=== PATIENT | female | born 1965 | race Caucasian/White ===

== ENCOUNTER → 2017-10-20 15:32 | Outpatient (CLI) | payer MEDICAID, SELFPAY ==
[2017-10-26 11:07] LABS: HPV APTIMA, High Risk Negative (Negative)
== END ==
PROVIDERS: Family Provider Family Medicine Geriatric Medicine; PCP Family Medicine Geriatric Medicine; Visit Provider Nurse Practitioner Women's Health
DX: Z12.4 Encounter for screening for malignant neoplasm of cervix (principal)
CPT/HCPCS: 88175; G0145

== ENCOUNTER → 2017-10-27 12:16 | Outpatient (CLI) | payer MEDICAID, SELFPAY ==
--- NOTE | 2017-10-27 12:18 | HPBI_ITS ---
MAMMOGRAPHY - BILATERAL SCREENING REASON FOR EXAM: Female, 52 years old. Routine annual screening examination. PERTINENT HISTORY: Aunts with breast cancer. TECHNIQUE: Digital bilateral breast aurelia (3D mammographic acquisition) in the CC and MLO projections. 2-D mediolateral oblique (MLO) and craniocaudad (CC) views of both breasts were obtained. CAD: Full Field Digital Mammography with Computer Added Detection was performed. COMPARISON: Comparison is made with prior outside examination dated March 14, 2017. FINDINGS: Breast Composition: The breasts are heterogeneously dense, which may obscure small masses. There are no dominant masses or suspicious calcifications. Stable benign-appearing bilateral axillary lymph nodes. No other significant abnormalities are identified. There has been no significant change since the prior study. HPBI/SCREENING MAMM (CAD), BILAT IMPRESSION: Stable bilateral screening mammogram. Yearly follow-up mammogram recommended. (A) ASSESSMENT CATEGORY: BIRADS Category 2: Benign. A letter regarding these results will be sent to the patient by the facility within 30 days. Approximately 10% of breast cancers are not detected by mammography. A normal mammogram should not delay biopsy of a clinically suspicious abnormality. [id number] Electronically Signed: Jermaine Self MD at 13:49 EST Tel [phone], Service support ,
== END ==
PROVIDERS: Family Provider Family Medicine Geriatric Medicine; PCP Family Medicine Geriatric Medicine; Visit Provider Family Medicine Geriatric Medicine
DX: Z12.31 Encounter for screening mammogram for malignant neoplasm of breast (principal)
CPT/HCPCS: 77063; 77067

== ENCOUNTER 2017-12-23 10:32 | Emergency (ER) | payer SELFPAY ==
[2017-12-23 10:33] VITALS: BP 157/86; PULSE 98; RESP 16; TEMP 36.9; BMI 25.0
--- NOTE | 2017-12-23 10:48 | ED.VISSUMM ---
- ER Visit Summary Date of Service: 12/23/17 Chief Complaint: Right foot pain History of Present Illness: The patient is a [address] Chahuan. She reports that she has pain on the bottom of her right foot that began approximately 1 month ago. She denies any trauma. She was not walking around barefoot. She describes a throbbing pain is 10 out of 10 with walking 7-10 at rest. She denies any other complaints. Physical Examination: Vitals: Stable. Afebrile. General: Well-nourished and well-developed. Head: Normocephalic atraumatic. Neck: Supple, no lymphadenopathy. No JVD. Nontender. Cardiovascular: Regular rate and rhythm. No murmurs. Respiratory: No respiratory distress. Clear to auscultation bilaterally. Abdominal: Soft, nontender, nondistended, normal bowel sounds. No guarding, rebound, or peritoneal signs. Back: Nontender. Extremities: On the plantar surface of her right foot there is a 1 cm plantars wart just proximal to the ball of her foot. no edema. Skin: Normal color, no rash. Neurologic: Alert and oriented ?3. Cranial nerves II through XII are intact. Normal strength and sensation. Psych: Normal affect. Emergency Department Course and Treatment: Patient was given a dose of ibuprofen here and is resting comfortably. Treatment Plan: Patient will be discharged use Tylenol/ibuprofen for pain. Did discuss with her [id number] treatments for plantar warts. She will be referred to Dr. Nelson to follow-up in 1-2 weeks if not improving. Return to the emergency department for any worsening symptoms. Disposition: To home in improved and stable condition. Impression: 1. Plantars wart right foot. This note was generated with [employer] dictation software. It may contain incorrect words, spelling, and punctuation that were not noted in review of the chart prior to signing ED Disposition - Plan for ED Patient: Disposition: Home or Assisted Living Chief Complaint: Lower Extremity Injury Instructions: ED Warts Plantar Referrals: Jamal Nelson DPM [STAFF PHYSICIAN] - 1 Week
[2017-12-23] MEDS: Ibuprofen 600 MG Tablet PO (11:16)
== END 2017-12-23 11:19 | disposition home or self-care (01) ==
LOC: ED 11:04
PROVIDERS: Emergency Provider Emergency Medicine; Family Provider Family Medicine Geriatric Medicine; PCP Family Medicine Geriatric Medicine
DX: B07.0 Plantar wart (principal); J45.909 Unspecified asthma, uncomplicated; E03.9 Hypothyroidism, unspecified; F32.9 Major depressive disorder, single episode, unspecified; Z72.0 Tobacco use; Z79.51 Long term (current) use of inhaled steroids; Z79.82 Long term (current) use of aspirin; Z79.899 Other long term (current) drug therapy
CPT/HCPCS: 99283

== ENCOUNTER → 2018-03-23 14:31 | Outpatient (CLI) | payer OTHER, SELFPAY ==
[2018-03-23 16:17] LABS: Vitamin D,25 Hydroxy 17.3 ng/mL (29.95-100.01)
[2018-03-23 19:15] LABS: Anion Gap 8 (5-15); BUN 15 mg/dL (7-18); Calcium,Total 8.8 mg/dL (8.5-10.1); Chloride 108 mmol/L (98-107); Cholesterol 211 mg/dL (200); Creatinine, Serum 0.88 mg/dL (0.55-1.02); EST Glomerular Filtration Rate 71 mL/min (>60); Est Glom Filt Rate - Afr Amer 86 mL/min (>60); Free T3 1.3 pg/mL (2.18-3.98); Glucose 89 mg/dL (74-106); High Density Lipoprotein 54 mg/dL; Potassium 3.8 mmol/L (3.5-5.1); Sodium Level 143 mmol/L (136-145); T4 Total, Thyroxin 3.6 ug/dL (4.8-13.9); Triglycerides 136 mg/dL; Very Low Density Lipoprotein 27 mg/dL (5-40)
== END ==
PROVIDERS: Family Provider Family Medicine; PCP Family Medicine; Visit Provider Family Medicine
DX: K21.9 Gastro-esophageal reflux disease without esophagitis (principal)
CPT/HCPCS: 36415; 80048; 80061; 82306; 84436; 84443; 84481

== ENCOUNTER → 2018-03-30 10:25 | Outpatient (CLI) | payer OTHER, SELFPAY ==
--- NOTE | 2018-03-30 10:28 | US_ITS ---
STUDY: THYROID ULTRASOUND REASON FOR EXAM: Female, 52 years old. Hypothyroidism. TECHNIQUE: Ultrasound evaluation of the thyroid was performed with real-time and static gavin-scale imaging. COMPARISON: None. FINDINGS: RIGHT LOBE: The right lobe of the thyroid gland is enlarged and measures 5.4 x 1.7 x 2.5 cm. There is a heterogeneous echotexture. There are no demonstrated solid, cystic or complex lesions. LEFT LOBE: The left lobe of the thyroid gland is enlarged and measures 5.8 x 2.1 x 1.9 cm. There is a heterogeneous echotexture. There are no demonstrated solid, cystic or complex lesions. ISTHMUS: The isthmus measures 3 mm which is normal. The regional lymph nodes are normal. US/Thyroid IMPRESSION: Thyroid gland enlargement. No nodules or cysts identified. Electronically Signed: Christo Mcmahon MD at 8:11 EDT , Service support ,
== END ==
LOC: OPUS 10:26
PROVIDERS: Family Provider Family Medicine; PCP Family Medicine; Visit Provider Family Medicine
DX: E03.9 Hypothyroidism, unspecified (principal)
CPT/HCPCS: 76536

== ENCOUNTER 2018-06-07 08:21 | Day surgery (SDC) | payer OTHER, SELFPAY ==
--- NOTE | 2018-06-02 10:21 | RAD_ITS ---
STUDY: X-RAY CHEST REASON FOR EXAM: Female, 52 years old. Preop clearance TECHNIQUE: PA and lateral views of the chest. COMPARISON: 04/16/2015 FINDINGS: The lungs are clear and expanded. There is no demonstrated pleural abnormality. Normal size heart. Normal mediastinum and neeru. Normal visualized pulmonary arteries. Normal visualized aortic arch and descending thoracic aorta. Normal visualized thoracic spine. Normal visualized ribs, clavicles, and shoulders. There is no demonstrated abnormality of the visualized soft tissue structures of the upper abdomen. RAD/Chest PA and Lateral IMPRESSION: Normal x-ray examination of the chest. Electronically Signed: Félix Ritter DO at 10:45 EDT Tel , Service support ,
[2018-06-02 10:24] LABS: Hemoglobin 13.8 g/dl (12.0-15.0); Mean Corp Hgb Conc 32.9 g/gl (32-36); Mean Corpuscular Hgb 31.4 pg (27.0-32.0); Mean Corpuscular Volume 95.5 fL (81-99); Mean Platelet Vol. 11.5 fl (6.2-12.0); Platelet Count 182 K/mm3 (150-450); RBC Distribution Width CV 13.2 % (11.6-14.6); RBC Distribution Width SD 46.3 fl (35.1-43.9)
[2018-06-02 10:25] LABS: Scan Indicated on CBC? Y/N NO
--- NOTE | 2018-06-02 10:30 | EKG12_ITS ---
Test Reason : PRE OP Blood Pressure : / mmHG Vent. Rate : 091 BPM Atrial Rate : 091 BPM P-R Int : 198 ms QRS Dur : 080 ms QT Int : 342 ms P-R-T Axes : 058 030 051 degrees QTc Int : 420 ms Normal sinus rhythm Normal ECG Confirmed by ROME GIBSON, SOHAIL ([id number]), newspaper managing editor JET DORANTES ([id number]) on 06/06/2018 3:16:39 PM Referred By: Paxton Fang Confirmed By:SOHAIL PETER MD
[2018-06-02 10:47] LABS: Anion Gap 7 (5-15); BUN 14 mg/dL (7-18); BUN/Creat Ratio 18.6 RATIO (10-20); Calcium,Total 8.7 mg/dL (8.5-10.1); Chloride 110 mmol/L (98-107); Creatinine, Serum 0.75 mg/dL (0.55-1.02); EST Glomerular Filtration Rate 85 mL/min (>60); Est Glom Filt Rate - Afr Amer 103 mL/min (>60); Glucose 104 mg/dL (74-106); Sodium Level 142 mmol/L (136-145)
[2018-06-07] VITALS (8 sets, daily range): BP systolic 108–141; BP diastolic 56–93; PULSE 85–97; RESP 14–20; TEMP 36.1–36.6; O2SAT 94–98; BMI 33.8
--- NOTE | 2018-06-07 09:17 | PCM.DC ---
You will use the following diet at home:: No restrictions Discharge Activity: Return to Normal Activity Allergies/Adverse Reactions: Allergies cephalexin monohydrate [From Keflex] Allergy (Verified 05/31/18 13:40) Hives latex Allergy (Verified 05/31/18 13:40) Rash Medications to take at Discharge Albuterol Inhaler [Ventolin Hfa] 1 puff INHALATION Q6H PRN PRN 09/25/14 Levothyroxine [Synthroid] 137 mcg PO DAILY 09/25/14 Loratadine [Claritin] 10 mg PO DAILY 09/25/14 buPROPion XL [Wellbutrin Xl] 300 mg PO DAILY 09/25/14 aspirin 81 mg tablet,delayed release 81 mg PO DAILY 10/20/17 Montelukast [Singulair] 10 mg PO DAILY 05/31/18 Multivitamin [Multiple Vitamins] 1 each PO DAILY 05/31/18 Nicotine [Nicoderm Cq (PBKC)] 14 mg TRANSDERM. DAILY 05/31/18 Omeprazole 40 mg PO DAILY 05/31/18 Ranitidine [Zantac] 150 mg PO DAILY 05/31/18 Primary Care Physician: Hu Hairston MD [Primary Care Provider] - Test Results: Test results from this visit will be discussed in further detail at your follow-up appointment, if applicable. Please Follow Up With: Paxton Fang MD When: 1 week
--- NOTE | 2018-06-07 09:21 | DCINST_ITS ---
You will use the following diet at home:: No restrictions Discharge Activity: Return to Normal Activity Allergies/Adverse Reactions: Allergies cephalexin monohydrate [From Keflex] Allergy (Verified 05/31/18 13:40) Hives latex Allergy (Verified 05/31/18 13:40) Rash Medications to take at Discharge Albuterol Inhaler [Ventolin Hfa] 1 puff INHALATION Q6H PRN PRN 09/25/14 Levothyroxine [Synthroid] 137 mcg PO DAILY 09/25/14 Loratadine [Claritin] 10 mg PO DAILY 09/25/14 buPROPion XL [Wellbutrin Xl] 300 mg PO DAILY 09/25/14 aspirin 81 mg tablet,delayed release 81 mg PO DAILY 10/20/17 Montelukast [Singulair] 10 mg PO DAILY 05/31/18 Multivitamin [Multiple Vitamins] 1 each PO DAILY 05/31/18 Nicotine [Nicoderm Cq (PBKC)] 14 mg TRANSDERM. DAILY 05/31/18 Omeprazole 40 mg PO DAILY 05/31/18 Ranitidine [Zantac] 150 mg PO DAILY 05/31/18 Primary Care Physician: Hu Hairston MD [Primary Care Provider] - Test Results: Test results from this visit will be discussed in further detail at your follow- up appointment, if applicable. Please Follow Up With: Paxton Fang MD When: 1 week
--- NOTE | 2018-06-07 09:21 | PCM.OPRPT ---
Problem List (1) Laryngeal mass Status: Chronic Report of Operation Date of Procedure: 06/07/18 Pre-Operative Diagnosis: laryngeal mass Post-Operative Diagnosis: laryngeal mass Surgery/Procedure Performed:: diagnostic laryngoscopy with vocal cord stripping and use of the operative telescope Type of Anesthesia:: General Description of Procedure: on the day of the procedure, after appropriate informed consent was obtained, the patient was brought to the operating room and placed in supine position on the operating table. she was placed under general endotracheal anesthesia by the anesthesiologist. the endotracheal tube was secured, the eyes were taped. the table was rotated 90 degrees toward the surgeon. a jeanette laryngoscope was inserted into the oral cavity with care not to damage the lips, teeth or gums. it was suspended from the viera stand. a glottic view could not be obtained with numerous laryngoscopes and maximal paralysis. the patient was examined with the glide scope and the same mid-cord polypoid lesion was seen. it was deemed unlikely that i could reach her larynx using straight microlaryngoscopy instruments and the microscope in the manner necessary to delicately trim her vocal cord. the case was aborted. the patient was rotated 90 degrees toward the anesthesiologist and extubated uneventfully. she was transported to the PACU in stable condition.
[2018-06-07] MEDS: Oxymetazoline 0.05% 1 SPRAY SPRAY.BTL 15 SPRAY (09:54)
[2018-06-07] MEDS: Ipratropium/Albuterol Sulfate 3 ML AMPUL.NEB INHALATION (10:48)
== END 2018-06-07 11:50 | disposition home or self-care (01) ==
LOC: SDC 08:22 → AC 08:22
PROVIDERS: Family Provider Family Medicine; PCP Family Medicine; Visit Provider Otolaryngology
PROC: 0CJS8ZZ Inspection of Larynx, Via Natural or Artificial Opening Endoscopic (ICD-10-PCS; CPT 31575; principal; 2018-06-07 09:50)
DX: J38.1 Polyp of vocal cord and larynx (principal); K21.9 Gastro-esophageal reflux disease without esophagitis; E06.9 Thyroiditis, unspecified; F32.9 Major depressive disorder, single episode, unspecified; J45.909 Unspecified asthma, uncomplicated; F17.200 Nicotine dependence, unspecified, uncomplicated; Z79.51 Long term (current) use of inhaled steroids; Z79.82 Long term (current) use of aspirin; Z79.899 Other long term (current) drug therapy
CPT/HCPCS: 31575; 36415; 71046; 80048; 85027; 93005; 94640; J7120; J2405

== ENCOUNTER → 2018-07-13 14:39 | Outpatient (CLI) | payer OTHER, SELFPAY ==
[2018-07-13 16:07] LABS: Thyroid Stim Hormone (TSH) 0.02 uIU/mL (0.358-3.74)
== END ==
LOC: MFPLAB 14:39
PROVIDERS: Family Provider Family Medicine; PCP Family Medicine; Visit Provider Family Medicine
DX: E03.9 Hypothyroidism, unspecified (principal)
CPT/HCPCS: 36415; 84443

== ENCOUNTER → 2018-08-25 14:05 | Outpatient (CLI) | payer OTHER, SELFPAY ==
[2018-06-07 09:00] VITALS: BMI 33.8
[2018-08-25 18:13] LABS: Thyroid Stim Hormone (TSH) 3.46 uIU/mL (0.358-3.74)
== END ==
LOC: MFPLAB 14:06
PROVIDERS: Family Provider Family Medicine; PCP Family Medicine; Visit Provider Family Medicine
DX: E03.9 Hypothyroidism, unspecified (principal)
CPT/HCPCS: 36415; 84443

== ENCOUNTER → 2019-01-05 10:41 | Outpatient (CLI) | payer OTHER, SELFPAY ==
[2018-06-07 09:00] VITALS: BMI 33.8
[2019-01-05 12:34] LABS: Absolute Lymphocyte Count 2.65 X10^3/ul (0.83-4.51); Absolute Neutrophil Count 5.6 X10^3/uL (2.0-7.7); Basophil# 0.02 X10^3/uL; Basophil% 0.2 % (0-1); Eosinophil# 0.16 X10^3/uL; Eosinophils% 1.8 % (0-5); Hematocrit 44.5 % (37-47); Lymphocyte # 2.65 X10^3/ul (4.0); Lymphocyte % 29.4 % (19-41); Mean Corp Hgb Conc 33.7 g/gl (32-36); Mean Corpuscular Hgb 30.8 pg (27.0-32.0); Mean Corpuscular Volume 91.4 fL (81-99); Mean Platelet Vol. 11.9 fl (6.2-12.0); Monocyte# 0.54 X10^3/uL; Neutrophil # 5.63 X10^3/uL (2.7-7.7); Neutrophil % 62.4 % (47-70); Platelet Count 196 K/mm3 (150-450); RBC Distribution Width CV 13.9 % (11.6-14.6); RBC Distribution Width SD 45.9 fl (35.1-43.9); Red Blood Count 4.87 M/mm3 (4.2-5.4)
[2019-01-05 12:42] LABS: POSITIVE COUNT NO; POSITIVE DIFFERENTIAL NO; POSITIVE MORPHOLOGY NO
== END ==
LOC: MFPLAB 10:41
PROVIDERS: Family Provider Family Medicine; PCP Family Medicine; Referring Provider Family Medicine; Visit Provider Family Medicine
DX: K92.1 Melena (principal)
CPT/HCPCS: 36415; 85025

== ENCOUNTER 2019-02-08 08:44 | Day surgery (SDC) | payer OTHER, SELFPAY ==
--- NOTE | 2019-01-11 02:50 | HP_ITS ---
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: No Is patient in pain?: No Allergies cephalexin monohydrate [From Keflex] Allergy (Verified 01/11/19 14:18) Hives latex Allergy (Verified 01/11/19 14:18) Rash Medications Albuterol Inhaler [Ventolin Hfa] 1 puff INHALATION Q6H PRN PRN 09/25/14 [History Confirmed 01/11/19] buPROPion XL [Wellbutrin Xl] 300 mg PO DAILY 09/25/14 [History Confirmed 01/11/19] aspirin 81 mg tablet,delayed release 81 mg PO DAILY 10/20/17 [History Confirmed 01/11/19] Omeprazole 40 mg PO DAILY 05/31/18 [History Confirmed 01/11/19] Ranitidine [Zantac] 150 mg PO DAILY 05/31/18 [History Confirmed 01/11/19] hydrocortisone 2.5 % rectal cream with applicator % RC DAILY 01/11/19 [History Confirmed 01/11/19] levothyroxine 100 mcg tablet 125 mcg PO DAILY tab 01/11/19 [History Confirmed 01/11/19] montelukast 10 mg tablet 10 mg PO QPM 01/11/19 [History Confirmed 01/11/19] multivitamin tablet 1 tab PO DAILY 01/11/19 [History Confirmed 01/11/19] polyethylene glycol 3350 17 gram/dose oral powder 17 g PO DAILY 01/11/19 [History Confirmed 01/11/19] PFS Medical History Laryngeal mass (Chronic) Tobacco abuse (Chronic) Hypothyroid (Chronic) COPD (chronic obstructive pulmonary disease) 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 (Chronic) Acid reflux (Acute) Blood in stool (Acute) History of back problems (Acute) history excision abdominal wall tumor (Acute) Anxiety (Acute) Asthma (Acute) History Gallbladder Removal (Acute) History of abnormal cervical Pap smear (Acute) History of benign neoplasm of stomach (Acute) History of bloody stools (Acute) Hyperthyroidism (Acute) Scoliosis (Acute) Surgical History History of cholecystectomy (Acute) History of delivery (Acute) Family History Grandmother Colon cancer Grandfather Kidney disease Heart disease Sister Lung cancer Seizures Mother Cancer Diabetes Daughter Hypertension Thyroid disorder Social History Smoking Status: Current every day smoker second hand exposure: Yes quit status: not considering quitting alcohol intake: former year quit: 3 substance use type: does not use what type of physical activity do you participate in: none seatbelt use: always do you feel safe at home: Yes additional social history: Employed Self 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 Patient states she has had issues with bleeding per rectum since about 15 years old occasionally can be more blood than other times. States since her colonoscopy in [address] Pena which she did have a tubular adenoma removed removed no other abnormalities were commented on. Patient also had an EGD at that time and has been on omeprazole and loratadine since then patient denies any symptoms of reflux. Patient states she is had bright red blood sometimes in the toilet at other times just on the toilet paper with every bowel movement. Patient states she has bowel movements daily states he are usually hard in the morning but then soft afterwards. Patient denies any pain with bowel movements. Patient is unsure if she has any hemorrhoids. She just started Proctol per her PCP states she has been putting in her rectum, patient also got generic MiraLAX and to start taking that daily. Patient is also on aspirin 81 mg preventatively. Patient states she does drink plenty water however she likely does not get enough fiber in her diet. ROS General General: No fatigue, colon cancer, breast cancer or weakness HEENT HEENT: No difficulty swallowing, eye injury, eye surgery, swollen glands or hoarseness Endo Endocrine: Yes thyroid disease; no diabetes mellitus, thyroid cancer, Hair loss, heat intolerance or cold intolerance Skin Skin: No rash or changing moles Breast Breast: No left breast lump, right breast lump, nipple discharge, breast pain, abnormal mammogram, abnormal US or breast enlargement Musc Musculoskeletal: Yes back problems; no arthritis, rheumatoid arthritis, gout or joint pain Cardio Cardiovascular: No murmur, pacemaker, heart disease, atrial fibrillation, high blood pressure, heart attack, heart stent, palpitations, shortness of breat with exertion or chest pain Psych Psychiatric: No depression, anxiety or hearing voices Resp Respiratory: No shortness of breath, No sleep apnea, No cough, No COPD, Yes asthma, No emphysema, No wheezing Gastro Gastrointestinal: No abdominal pain, No nausea or vomiting, No diarrhea, No constipation, Yes blood in stool, Yes acid reflux, No hemorrhoids, No ulcers, No gallbladder problem, No black,tarry stools Octavio Hematologic: No blood thinners, No blood disorders, No bleeding, No anemia, No blood clots Neuro Neurologic: No system reviewed and no additional complaints, except as docu, No as per HPI, No abnormal walking, No abnormal hearing, No abnormal movements, No abnormal speech, No behavioral changes, No burning sensations, No confusion, No seizure-like activity, No unsteadiness, No dizziness, No localized weakness, No frequent falls, No headache(s), No lack of coordination, No loss of vision, No memory loss, No numbness, No other visual disturbances, No radiating pain, No restless legs, No sensory deficit, No fainting, No tingling, No tremor(s), No weakness, No other Exam Const General: cooperative, comfortable, no acute distress Chest Breast Palpation: No nipple discharge Resp Effort & Inspection: normal respiratory effort Cardio Rate: regular rate Heart Sounds: no murmurs GI Inspection: non-distended, scar (Right lower quadrant from the abdominal wall tumor -benign & csection) Palpation: soft, no guarding, nontender Other: ABHISHEK: Small residual hemorrhoidal tissue externally, left lateral cushion internal hemorrhoid appreciated, no gross blood, normal sphincter tone, no other masses appreciate Assessment & Plan Problems 1. BRBPR (bright red blood per rectum) K62.5 2. Internal hemorrhoid K64.8 Plan Will patient hold her aspirin. Also gave patient a list of high-fiber foods encouraged getting 25 g daily. Discussed with patient that if she were to take MiraLAX daily long-term she may build up a tolerance that may no longer work well for her. Did discuss adding stool softeners. On exam patient did have a left lateral internal hemorrhoid recommend continuing the Proctol. I have discussed the above with the patient. I have offered the patient colonoscopy for evaluation. I have explained the risks/benefits of the procedure and described the procedure. I have discussed the risks with the patient, including but not limited to: infection, bleeding, perforation of the GI tract requiring emergency surgery, inability to complete the procedure, injury to any internal organs, complications of anesthesia, etc. - the patient understands and agrees to proceed. I have answered all the patient's questions to the patient's satisfaction and the patient has no further questions. The patient has been given instructions for the colon cleansing preparation. 1 day of clears, MiraLAX Dulcolax split prep Jazmine Contreras M.D. Pager: [phone] [facility] [address] [place] [address], [facility], [address] [place] [address] Office: [phone] Plan Detail Follow Up We will schedule colonoscopy Coding Level of Care Code Off vis,new,level 3 Diagnoses BRBPR (bright red blood per rectum) K62.5 Internal hemorrhoid K64.8 01/11/19 1451 <Electronically signed by Jazmine Contreras MD> Date Jazmine Contreras MD I have examined the patient the following changes are noted: Patient states she still having small amount of bright red blood per rectum denies any pain or itching with her hemorrhoids.
[2019-01-11 14:17] VITALS: BMI 34.1
[2019-02-08 09:08] VITALS: BP 141/85; PULSE 86; RESP 16; TEMP 36.7; O2SAT 95; BMI 33.5
--- NOTE | 2019-02-08 10:15 | COLBX_PTH ---
PATIENT: BOAZ REYNAGA LOC: EN U#:[id number] AGE/SX: 53/F ROOM: RE02/08/[address]: Dr. Jazmine Contreras MD : 1965 BED: DIS: 02/08/2019 SPEC #: [id number] RECD: 02/08/19 11:51 STATUS: PEARL RERicki #: [id number] SUNSHINE: 02/08/19 10:[address]: Jazmine Contreras DEPT: SURGICAL PATHOLOGY RECD BY: Reyna Perla ENTERED: 02/08/19 14:05 SP TYPE: COLON BX OTHR DR: Dr. Hu Hairston MD Tissues: A - POLYP B - Sigmoid colon biopsy Procedures: Surgery Specimen Level IV HEADER OPERATION: colonoscopy (MAC) PRE-OP DIAGNOSIS: Bright red blood per rectum, internal hemorrhoids TISSUE SUBMITTED: A. Distal descending colon polyp, B. Sigmoid polyp MICROSCOPIC DIAGNOSIS A. Distal descending colon polyp, biopsy: Tubular adenoma. B. Sigmoid polyp, biopsy: Fragments of colonic mucosa with focal hyperplastic changes. SHABNAM:dc 02/09/19 MICROSCOPIC DESCRIPTION Slides are reviewed. GROSS DESCRIPTION A - Received in fixative is one container labeled with the patient's name and designated biopsy of distal descending colon polyp. The specimen consists of two irregular fragments of light rader soft tissue that in aggregate measure 0.4 x 0.2 x 0.1 cm. The specimen is totally submitted in one cassette. B - Received in fixative is one container labeled with the patient's name and designated biopsy of sigmoid polyp. The specimen consists of two irregular fragments of light rader soft tissue that in aggregate measure 0.4 x 0.3 x 0.1 cm. The specimen is totally submitted in one cassette. / SHABNAM:dc 02/08/19 TC:1 CPT: 70257 x2
[2019-02-08 11:02] VITALS: BP 141/85; BP 97/53; PULSE 80; RESP 16; TEMP 36.2; O2SAT 97
--- NOTE | 2019-02-08 11:04 | OP.ENDO_ITS ---
02/08/2019 Hu Hairston MD [address] [id number] Re : Colonoscopy procedure for Cindi Goldstein Dear Dr. Hairston This procedure was performed on Friday, February 08, 2019. My impressions and recommendations are as follows: Impressions : - Hemorrhoids found on perianal exam. - No specimens collected. Recommendations : - Discharge patient to home. - Resume previous diet. - Continue present medications. - Await pathology results. - Repeat colonoscopy in 3 - 5 years for surveillance based on pathology results. My findings are described in the full procedure note, which is enclosed. If I can be of further assistance, please feel free to contact me at Doctor phone number(s): , Work: . Sincerely, MD Jazmine Urrutia MD 02/08/2019 11:03:47 AM This report has been signed electronically.
[2019-02-08 11:05] VITALS: BP 114/73; BP 141/85; PULSE 77; RESP 16; O2SAT 94
[2019-02-08 11:10] VITALS: BP 116/73; BP 141/85; PULSE 79; RESP 16; O2SAT 94
[2019-02-08 11:15] VITALS: BP 117/102; BP 141/85; PULSE 77; RESP 16; TEMP 36.3; O2SAT 96
[2019-02-08 11:24] VITALS: BP 141/85
== END 2019-02-08 11:39 | disposition home or self-care (01) ==
LOC: EN 08:46 → AC 08:47
PROVIDERS: Family Provider Family Medicine; PCP Family Medicine; Referring Provider Surgery; Visit Provider Surgery
PROC: 0DJD8ZZ Inspection of Lower Intestinal Tract, Via Natural or Artificial Opening Endoscopic (ICD-10-PCS; CPT 45378; principal; 2019-02-08 10:10)
DX: D12.4 Benign neoplasm of descending colon (principal); K63.5 Polyp of colon; K64.8 Other hemorrhoids; E03.9 Hypothyroidism, unspecified; J44.9 Chronic obstructive pulmonary disease, unspecified; K21.9 Gastro-esophageal reflux disease without esophagitis; F41.9 Anxiety disorder, unspecified; J45.909 Unspecified asthma, uncomplicated; F17.200 Nicotine dependence, unspecified, uncomplicated; Z79.51 Long term (current) use of inhaled steroids; Z79.82 Long term (current) use of aspirin; Z79.899 Other long term (current) drug therapy
CPT/HCPCS: 45380; 88305; J7120

== ENCOUNTER → 2019-03-09 15:30 | Outpatient (CLI) | payer MEDICAID, SELFPAY ==
[2019-03-06 11:28] VITALS: BMI 33.5
== END ==
PROVIDERS: Family Provider Family Medicine; PCP Family Medicine; Referring Provider Nurse Practitioner Family; Visit Provider Nurse Practitioner Family
DX: R31.9 Hematuria, unspecified (principal)
CPT/HCPCS: 87086

== ENCOUNTER → 2019-03-09 | Outpatient (CLI) | payer OTHER, SELFPAY ==
[2019-03-06 11:28] VITALS: BMI 33.5
[2019-03-09 16:00] LABS: Anion Gap 8 (5-15); BUN 19 mg/dL (7-18); BUN/Creat Ratio 23.3 RATIO (10-20); Calcium,Total 8.8 mg/dL (8.5-10.1); Chloride 111 mmol/L (98-107); Creatinine, Serum 0.82 mg/dL (0.55-1.02); EST Glomerular Filtration Rate 77 mL/min (>60); Est Glom Filt Rate - Afr Amer 93 mL/min (>60); Glucose 125 mg/dL (74-106); Potassium 3.6 mmol/L (3.5-5.1); Sodium Level 144 mmol/L (136-145)
== END | disposition home or self-care (01) ==
PROVIDERS: Family Provider Family Medicine; PCP Family Medicine; Visit Provider Nurse Practitioner Family
DX: E03.9 Hypothyroidism, unspecified (principal); R31.9 Hematuria, unspecified
CPT/HCPCS: 36415; 80048; 84443; 87086; 87088

== ENCOUNTER → 2019-06-02 | Outpatient (CLI) | payer OTHER, SELFPAY ==
[2019-05-24 10:44] VITALS: BMI 33.5
--- NOTE | 2019-06-02 13:01 | BI_ITS ---
MAMMOGRAPHY - BILATERAL SCREENING REASON FOR EXAM: Female, 53 years old. Routine annual screening examination. PERTINENT HISTORY: Aunts with breast cancer. TECHNIQUE: Digital bilateral breast jacob (3D mammographic acquisition) in the CC and MLO projections. 2-D mediolateral oblique (MLO) and craniocaudad (CC) views of both breasts were obtained. CAD: Full Field Digital Mammography with Computer Added Detection was performed. COMPARISON: Comparison is made with prior study dated October 27, 2017. FINDINGS: Breast Composition: The breasts are heterogeneously dense, which may obscure small masses. There are no dominant masses or suspicious calcifications. Stable benign-appearing bilateral axillary nodes. No other significant abnormalities are identified. There has been no significant change since the prior study. BI/SCREEN MAMM (CAD) W/JACOB BILAT IMPRESSION: Stable bilateral screening mammogram. Yearly follow-up mammogram recommended. (A) ASSESSMENT CATEGORY: BIRADS Category 2: Benign. A letter regarding these results will be sent to the patient by the facility within 30 days. Approximately 10% of breast cancers are not detected by mammography. A normal mammogram should not delay biopsy of a clinically suspicious abnormality. [id number] Electronically Signed: Jermaine Self, at 14:58 EDT , Service support ,
== END | disposition home or self-care (01) ==
LOC: OPBI 12:48
PROVIDERS: Family Provider Family Medicine; PCP Family Medicine; Referring Provider Obstetrics & Gynecology; Visit Provider Obstetrics & Gynecology
DX: Z12.31 Encounter for screening mammogram for malignant neoplasm of breast (principal)
CPT/HCPCS: 77063; 77067

== ENCOUNTER → 2019-07-12 | Outpatient (CLI) | payer OTHER, SELFPAY ==
[2019-05-24 10:44] VITALS: BMI 33.5
[2019-07-12 17:54] LABS: Thyroid Stim Hormone (TSH) 1.57 uIU/mL (0.358-3.74)
== END | disposition home or self-care (01) ==
LOC: MFPLAB 15:08
PROVIDERS: Family Provider Family Medicine; PCP Family Medicine; Referring Provider Family Medicine; Visit Provider Family Medicine
DX: E03.9 Hypothyroidism, unspecified (principal)
CPT/HCPCS: 36415; 84443

== ENCOUNTER → 2020-01-10 14:20 | Outpatient (CLI) | payer OTHER, SELFPAY ==
[2019-05-24 10:44] VITALS: BMI 33.5
[2020-01-10 18:05] LABS: Anion Gap 8 (5-15); BUN 19 mg/dL (7-18); BUN/Creat Ratio 26.8 RATIO (10-20); Chloride 106 mmol/L (98-107); Creatinine, Serum 0.71 mg/dL (0.55-1.02); EST Glomerular Filtration Rate 91 mL/min (>60); Est Glom Filt Rate - Afr Amer 110 mL/min (>60); Free T3 2.9 pg/mL (2.18-3.98); Glucose 88 mg/dL (74-106); Potassium 3.7 mmol/L (3.5-5.1); Sodium Level 140 mmol/L (136-145); T4 Total, Thyroxin 9.7 ug/dL (4.8-13.9); Thyroid Stim Hormone (TSH) 4.53 uIU/mL (0.358-3.74)
== END ==
LOC: MFPLAB 14:21
PROVIDERS: PCP Family Medicine; Visit Provider Family Medicine
DX: E16.2 Hypoglycemia, unspecified (principal); E03.9 Hypothyroidism, unspecified
CPT/HCPCS: 36415; 80048; 84436; 84443; 84481

== ENCOUNTER → 2020-04-10 15:27 | Outpatient (CLI) | payer OTHER, SELFPAY ==
[2019-05-24 10:44] VITALS: BMI 33.5
[2020-04-10 18:14] LABS: Thyroid Stim Hormone (TSH) 1.44 uIU/mL (0.358-3.74)
== END ==
LOC: MFPLAB 15:29
PROVIDERS: PCP Family Medicine; Referring Provider Family Medicine; Visit Provider Family Medicine
DX: E03.9 Hypothyroidism, unspecified (principal)
CPT/HCPCS: 36415; 84443

== ENCOUNTER 2021-04-11 22:45 | Emergency (ER) | payer SELFPAY ==
[2019-05-24 10:44] VITALS: BMI 33.5
[2021-04-11 22:47] VITALS: BP 180/90; PULSE 87; RESP 15; TEMP 36.5; O2SAT 97; BMI 32.1
--- NOTE | 2021-04-11 23:50 | ED.RN ---
RN CALLED FOR EKG, PULLED OLD EKGS FOR
--- NOTE | 2021-04-12 00:13 | EKG12_ITS ---
Test Reason : HYPERTENSION Blood Pressure : / mmHG Vent. Rate : 088 BPM Atrial Rate : 088 BPM P-R Int : 200 ms QRS Dur : 078 ms QT Int : 364 ms P-R-T Axes : 065 048 065 degrees QTc Int : 440 ms Normal sinus rhythm Normal ECG Confirmed by ROME GIBSON, SOHAIL ([id number]), clinical editor RENE CUEVAS ([id number]) on 04/15/2021 9:45:11 AM Referred By: BB Confirmed By:SOHAIL PETER MD
--- NOTE | 2021-04-12 00:14 | EDS_ITS ---
HPI History of Present Illness Chief Complaint: Hypertension Informant: patient Onset/Context/Timing Onset: Today (Past 9-10 hours or so) Context: Gradual Onset Timing: Continuous and Waxes and wanes Quality: Lightheadedness and tingling in face bilaterally Narrative Narrative: Patient states she started feeling lightheaded and having tingling in both cheeks simultaneously today, she works in [employer] and was at a client's house when this started so she checked her blood pressure and it was 180/100. States she does not have blood pressure issues, does not take any antihypertensives, and states that her blood pressure does wax and wane at times but not like this. Usually drinks 1 cup of coffee per day, and then water throughout the rest of the day and has not change that lately. Her asthma has been flared up lately due to humidity and weather, she has been using her inhaler intermittently, but not severe today. No dyspnea or chest discomfort other than asthma symptoms. No changes in urination. No recent injury. No other illness recently. Has been vaccinated against Covid remotely. [facility] Medical History (Updated 04/12/21 @ 00:[address] Luther Williamson MD) Acid reflux Anxiety Asthma Blood in stool COPD (chronic obstructive pulmonary disease) 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 history excision abdominal wall tumor History Gallbladder Removal History of abnormal cervical Pap smear History of back problems History of benign neoplasm of stomach History of bloody stools Hyperthyroidism Hypothyroid Laryngeal mass Scoliosis Tobacco abuse Home Medications albuterol sulfate 1 puff INHALATION Q6H PRN PRN 09/25/14 [History Last Taken Unknown] bupropion HCl 300 mg PO DAILY 09/25/14 [History Last Taken 02/16/15] aspirin 81 mg tablet,delayed release 81 mg PO DAILY 10/20/17 [History Last Taken Unknown] omeprazole 40 mg PO DAILY 05/31/18 [History Last Taken 02/08/19 06:30 40 MG] ranitidine HCl 150 mg PO DAILY 05/31/18 [History Last Taken 02/08/19 06:30 150 MG] montelukast 10 mg tablet 10 mg PO QPM 01/11/19 [History Last Taken Unknown] multivitamin 1 tab PO DAILY 01/11/19 [History Last Taken Unknown] levothyroxine 137 mcg tablet 137 mcg PO DAILY 05/24/19 [History Last Taken Unknown] loratadine 10 mg tablet 10 mg PO DAILY 05/24/19 [History Last Taken Unknown] venlafaxine 37.5 mg capsule,extended release 24 hr 37.5 mg PO DAILY #30 cap 05/24/19 [Rx Last Taken Unknown] clonidine HCl 0.1 mg PO Q12H PRN #10 tab 04/12/21 [Rx Last Taken Unknown] Allergy/AdvReac Type Severity Reaction Status Date / Time cephalexin monohydrate Allergy Hives Verified 05/24/19 10:40 [From Keflex] latex Allergy Rash Verified 05/24/19 10:40 Penicillins [PCN] Allergy Hives Verified 04/11/21 22:47 Family History Grandmother Colon cancer Grandfather Kidney disease Heart disease Sister Lung cancer Seizures Mother Cancer Diabetes Daughter Hypertension Thyroid disorder Surgical History History of delivery History of cholecystectomy Social History Smoking Status: Current every day smoker tobacco type: cigarettes second hand exposure: Yes quit status: not considering quitting alcohol intake: never substance use type: does not use caffeine: Yes what type of physical activity do you participate in: none seatbelt use: always do you feel safe at home: Yes additional social history: Employed Self reliance single ROS ROS ED Constitutional Constitutional ED: Reports malaise; Denies chills or fever(s) Eyes Eyes: Denies blurry vision, change in vision, diplopia or photophobia ENT ENT ED: Denies rhinorrhea or sore throat Cardiovascular Cardiovascular: Denies chest pain or palpitations Respiratory/Chest Respiratory/Chest: Reports as per HPI and wheezing; Denies cough or dyspnea Gastrointestinal Gastrointestinal: Denies abdominal pain, diarrhea, nausea or vomiting Genitourinary Genitourinary ED: Denies dysuria or hematuria Musculoskeletal Musculoskeletal: Denies back pain or neck pain Integumentary Denies abscess or rash Neurologic Neurologic: Reports as per HPI and paresthesias; Denies headache(s) or weakness Psychiatric Psychiatric: Denies anxiety or suicidal thoughts EXAM Physical Exam Const Vital Signs: 04/11/21 22:47 04/11/21 23:54 04/12/21 00:16 Temperature 97.7 F L Temperature Source Temporal Pulse Rate 87 90 Respiratory Rate 15 Respiratory Effort Normal Non-Labored Respiratory Pattern Normal Blood Pressure 180/90 H 142/80 H Blood Pressure Mean 120 100 Pulse Ox 97 Oxygen Delivery Method Room Air 04/12/21 00:45 Temperature Temperature Source Pulse Rate 87 Respiratory Rate 24 H Respiratory Effort Respiratory Pattern Blood Pressure 155/94 H Blood Pressure Mean 114 Pulse Ox 97 Oxygen Delivery Method Room Air Positive well nourished, well developed and obese Constitutional Narrative: Well-appearing no distress conversive in full sentences General Appearance ED: well developed and NAD Nutritional Appearance: obese HEENT Reports moist mucous membranes normocephalic and atraumatic Eyes PERRL and EOMs intact bilaterally Neck full ROM and supple Resp normal respiratory effort and clear to auscultation bilaterally Cardio regular rate, regular rhythm and no murmurs Rate: Negative for tachycardic GI non-tender and non-distended Auscultation: normoactive bowel sounds Palpation: soft Back/Spine no CVA tenderness General Back: other FROM Extremity normal to inspection General Extremety ED: Negative for edema, pulses abnormal or tenderness General Extremity: Negative for edema or pulses abnormal Neuro oriented x3, CN's II-XII intact bilaterally and no sensory deficits noted Sensorium / Orientation: awake and alert Motor Exam: strength 5/5 throughout Skin no rashes or lesions noted and no wounds MDM MDM MDM Narrative Medical decision making narrative: With observation prior to any treatment her blood pressure came down to 142/80 so we held off, the next reading was 155/94, so she was given clonidine 0.1 mg orally, work-up is negative for anything acute right now and I think she is stable to be discharged home with close outpatient follow-up after the weekend, given a prescription for some clonidine to take as needed until then 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 Lab Data Attestation: I reviewed the patient's lab results. Labs: Laboratory Results - last 24 hr 04/12/21 04/12/21 00:00 00:00 WBC 11.1 H RBC 4.85 Hgb 15.3 H Hct 45.4 MCV 93.6 MCH 31.5 MCHC 33.7 RDW Std Deviation 46.0 H RDW Coeff of Vinicio 13.3 Plt Count 173 MPV 12.0 Immature Gran % (Auto) 0.400 Neut % (Auto) 56.6 Lymph % (Auto) 34.1 Stevens % (Auto) 6.4 Eos % (Auto) 2.0 Baso % (Auto) 0.5 Absolute Neuts (auto) 6.3 Absolute Lymphs (auto) 3.78 Nucleated RBC % 0 Sodium 140 Potassium 3.5 Chloride 110 H Carbon Dioxide 26.0 Anion Gap 4 L BUN 22 H Creatinine 0.70 Estim Creat Clear Calc 86.23 Est GFR (MDRD) Af Amer 112 Est GFR (MDRD) Non-Af 92 BUN/Creatinine Ratio 31.7 H Glucose 97 Calcium 8.5 Troponin I High Sens 3.6 EKG Initial EKG: Attestation: I personally reviewed and interpreted this EKG as follows: Interpretation: Sinus Rhythm and No Acute Injury Pattern Comments: normal EKG Prior EKG tracings: available for review Prior: Unchanged Discharge Plan Triage Chief Complaint: Hypertension ED Provider: Luther Williamson Dx/Rx/DC Orders Clinical Impression: Episode of hypertension Instructions: ED Hypertension, To Be Confirmed Prescriptions: New clonidine HCl 0.1 mg tablet 0.1 mg PO Q12H PRN (Reason: SBP > 160) Qty: 10 RF: 0 No Action aspirin [Adult Low Dose Aspirin] 81 mg tablet,delayed release (DR/EC) 81 mg PO DAILY RF: 0 loratadine [Claritin] 10 mg tablet 10 mg PO DAILY RF: 0 levothyroxine 137 mcg tablet 137 mcg PO DAILY RF: 0 venlafaxine [Effexor XR] 37.5 mg capsule,extended release 24hr 37.5 mg PO DAILY Qty: 30 RF: 12 montelukast 10 mg tablet 10 mg PO QPM RF: 0 multivitamin [Daily-Aaliyah] tablet 1 tab PO DAILY RF: 0 albuterol sulfate 1 INHALER inhaler 1 puff inhalation Q6H PRN PRN (Reason: Asthma) RF: 0 bupropion HCl 300 MG tablet extended release 24 hr 300 mg PO DAILY RF: 0 omeprazole 40 MG capsule,delayed release(DR/EC) 40 mg PO DAILY RF: 0 ranitidine HCl 150 MG tablet 150 mg PO DAILY RF: 0 Primary Care Provider: Hu Hairston Referrals: Hu Hairston MD [Primary Care Provider] - (Next week, call for appointment) Disposition Disposition: Home, Self Care
[2021-04-12 00:16] VITALS: BP 142/80; PULSE 90
[2021-04-12 00:20] LABS: Absolute Lymphocyte Count 3.78 X10^3/uL (0.83-4.51); Absolute Neutrophil Count 6.3 X10^3/uL (2.0-7.7); Basophil# 0.05 X10^3/uL; Basophil% 0.5 % (0-1); Eosinophil# 0.22 X10^3/uL; Hematocrit 45.4 % (37-47); Hemoglobin 15.3 g/dL (12.0-15.0); Lymphocyte # 3.78 X10^3/ul (0.83-4.51); Lymphocyte % 34.1 % (19-41); Mean Corp Hgb Conc 33.7 g/dL (32-36); Mean Corpuscular Hgb 31.5 pg (27.0-32.0); Mean Corpuscular Volume 93.6 fL (81-99); Monocyte# 0.71 X10^3/uL; Monocyte% 6.4 % (0-10); NRBC Flagged by Analyzer 0 % (0-5); Neutrophil # 6.27 X10^3/uL (2.7-7.7); Neutrophil % 56.6 % (47-70); Platelet Count 173 K/mm3 (150-450); RBC Distribution Width CV 13.3 % (11.6-14.6); Red Blood Count 4.85 M/mm3 (4.2-5.4); White Blood Count 11.1 K/mm3 (4.4-11.0)
[2021-04-12 00:34] LABS: Anion Gap 4 (5-15); BUN 22 mg/dL (7-18); BUN/Creat Ratio 31.7 RATIO (10-20); Calcium,Total 8.5 mg/dL (8.5-10.1); Chloride 110 mmol/L (98-107); EST Glomerular Filtration Rate 92 mL/min (>60); Est Glom Filt Rate - Afr Amer 112 mL/min (>60); Estimated Creatinine Clearance 86.23 ml/min; Glucose 97 mg/dL (74-106); Potassium 3.5 mmol/L (3.5-5.1); Sodium Level 140 mmol/L (136-145); Troponin-I HS 3.6 pg/mL (3.0-53.7)
[2021-04-12 00:45] VITALS: BP 155/94; PULSE 87; RESP 24; O2SAT 97
[2021-04-12 00:50] LABS: Mucous, Urine 0 SEEN /hpf (<or=2+)
[2021-04-12 00:52] LABS: Color, Urine Yellow (Yellow); Glucose, Dipstick Normal (Normal); Ketone-Dipstick Negative (Negative); Leukocyte Esterase-Dipstick 500 /ul (Negative); Nitrite-Dipstick Negative (Negative); Occult Blood-Urine 150 /ul (Negative); Protein-Dipstick 15 mg/dl (Negative); Specific Gravity, Urine 1.025 (1.002-1.030); Urine Bilirubin Dipstick Negative (Negative); Urine Clarity Clear (Clear); Urine Urobilinogen Normal (Normal)
[2021-04-12] MEDS: cloNIDine HCl 0.1 MG Tablet PO (01:05)
[2021-04-12 01:25] LABS: Bacteria 1+ /hpf (None Seen); Calcium Oxalate Crystals Ur 1+ /hpf (<or=2+); Red Blood Cells-Urine 5-10 SEEN /hpf (0-5); Squamous Epithelial Cells - UA 10-25 SEEN /hpf (5-10); White Blood Cells 25-50 SEEN /hpf (0-5)
== END 2021-04-12 01:22 | disposition home or self-care (01) ==
PROVIDERS: Emergency Provider Emergency Medicine; PCP Family Medicine
DX: I10 Essential (primary) hypertension (principal); R42 Dizziness and giddiness; R20.2 Paresthesia of skin; K21.9 Gastro-esophageal reflux disease without esophagitis; J44.9 Chronic obstructive pulmonary disease, unspecified; E03.9 Hypothyroidism, unspecified; M41.9 Scoliosis, unspecified; Z79.82 Long term (current) use of aspirin; Z79.899 Other long term (current) drug therapy; F41.9 Anxiety disorder, unspecified; F17.210 Nicotine dependence, cigarettes, uncomplicated
CPT/HCPCS: 80048; 81001; 84484; 85025; 93005; 99284; A4216

== ENCOUNTER → 2021-04-18 11:43 | Outpatient (CLI) | payer SELFPAY ==
[2021-04-18 15:26] LABS: Thyroid Stim Hormone (TSH) 1.54 uIU/mL (0.358-3.74)
== END ==
LOC: MFPLAB 11:43
PROVIDERS: PCP Family Medicine; Visit Provider Family Medicine
DX: E03.9 Hypothyroidism, unspecified (principal)
CPT/HCPCS: 36415; 84443

== ENCOUNTER 2021-09-27 12:40 | Emergency (ER) | payer MEDICAID, SELFPAY ==
--- NOTE | 2021-09-27 13:45 | RAD_ITS ---
STUDY: X-RAY CHEST REASON FOR EXAM: Female, 56 years old. COUGH GETTING WORSE TECHNIQUE: Frontal portable view of the chest COMPARISON: 02 June 2018 FINDINGS: Interstitial markings are increasing in visibility especially in the right upper lobe. Lungs are hyperinflated. There is no pneumothorax, pulmonary edema, cardiomegaly or effusions. RAD/Chest 1 View (Portable) IMPRESSION: Increasing interstitial markings, possibly viral pneumonia, bronchitis. Recommend CT for evaluation. Emphysema. Electronically Signed: Jay Garcia MD at 15:35 EST ,
--- NOTE | 2021-09-27 15:23 | EDS_ITS ---
DATE OF SERVICE 09/27/21 CHIEF COMPLAINT: Cough and sore throat. HISTORY OF PRESENT ILLNESS: The patient is a 56-year-old female with a 6-day history of cough with elioly-io-tzbeo sputum production and chills. She states that her temperature is in the 99 range. She was seen at Urgent Care several days ago. COVID test at that time was negative. She states that she has been off of work all week, but is still feeling ill. She has a history of smoking as well as asthma. PHYSICAL EXAMINATION: GENERAL: The patient is sitting upright in bed in no acute distress. She is speaking in full sentences. VITAL SIGNS: Blood pressure 166/86, heart rate 80, respiratory rate 16, pulse ox 97% on room air. HEENT: Head and neck examination is unremarkable. Posterior pharynx is normal. LUNGS: Lung sounds are with mild expiratory wheeze. HEART: Regular rate and rhythm. ABDOMEN: Soft, nontender. DIAGNOSTIC DATA: Chest x-ray per my interpretation reveals chronic changes with no focal infiltrate. COVID test is negative. EMERGENCY DEPARTMENT COURSE AND MEDICAL DECISION MAKING: The patient was given a DuoNeb treatment here. On repeat evaluation, she does feel slightly improved. IMPRESSION: Upper respiratory infection with bronchospasm. DISPOSITION/PLAN: She will be written off of work for 3 additional days this coming week. She will be treated with doxycycline as well as prednisone. Given her smoking history, I do suspect a history of COPD with flare. She is discharged.
== END 2021-09-27 15:35 | disposition home or self-care (01) ==
LOC: ED 18:56
PROVIDERS: Emergency Provider Emergency Medicine; PCP Nurse Practitioner Adult Health; Visit Provider Emergency Medicine
DX: J06.9 Acute upper respiratory infection, unspecified (principal); J98.01 Acute bronchospasm
CPT/HCPCS: 71045; 87426; 94640; 99283

== ENCOUNTER 2021-10-06 16:17 | Outpatient (CLI) | payer MEDICAID, SELFPAY ==
--- NOTE | 2021-10-06 16:37 | RAD_ITS ---
EXAM: XR CHEST, 2 VIEWS : 1965 CLINICAL INDICATION: NICOTINE DEPENDENCE TECHNIQUE: Frontal and lateral views of the chest. This report was created using [employer] report generation technology. COMPARISON: 09/27/2021 FINDINGS: LUNGS AND PLEURAL SPACES: Unremarkable. No consolidation or edema. No pneumothorax. No effusion. HEART: Unremarkable. Cardiac silhouette not enlarged. MEDIASTINUM: Central airways and mediastinal contour are unremarkable. BONES/JOINTS: Unremarkable. SOFT TISSUES: Unremarkable. RAD/Chest PA and Lateral IMPRESSION: No radiographic evidence of acute cardiopulmonary disease. at 0259 Reported and signed by: Dedrick Sapp MD Electronically Signed: Dedrick Sapp MD at 2:58 EST ,
[2021-10-06 16:57] LABS: Absolute Neutrophil Count 7.3 X10^3/uL (2.0-7.7); Basophil# 0.04 X10^3/uL; Basophil% 0.3 % (0-1); Eosinophils% 1.6 % (0-5); Hemoglobin 15.5 g/dL (12.0-15.0); Lymphocyte % 33.4 % (19-41); Mean Corp Hgb Conc 32.3 g/dL (32-36); Mean Corpuscular Hgb 30.4 pg (27.0-32.0); Mean Corpuscular Volume 94.1 fL (81-99); Mean Platelet Vol. 10.7 fl (6.2-12.0); Monocyte% 6.4 % (0-10); NRBC Flagged by Analyzer 0 % (0-5); Neutrophil # 7.25 X10^3/uL (2.7-7.7); Neutrophil % 57.6 % (47-70); Platelet Count 250 K/mm3 (150-450); RBC Distribution Width CV 12.8 % (11.6-14.6); RBC Distribution Width SD 44.7 fl (35.1-43.9); White Blood Count 12.6 K/mm3 (4.4-11.0)
[2021-10-06 17:44] LABS: ALB/GLOB Ratio 0.9 RATIO (0.9-2.4); AST(SGOT) 22 U/L (15-37); Alanine Aminotransfer ALT/SGPT 48 U/L (13-56); Albumin, Serum 3.8 g/dL (3.2-5.0); Alkaline Phosphatase 122 U/L (45-117); Anion Gap 4 (5-15); BUN 16 mg/dL (7-18); BUN/Creat Ratio 22.1 RATIO (10-20); Calcium,Total 9.1 mg/dL (8.5-10.1); Chloride 105 mmol/L (98-107); Cholesterol 210 mg/dL (200); Creatinine, Serum 0.72 mg/dL (0.55-1.02); EST Glomerular Filtration Rate 88 mL/min (>60); Est Glom Filt Rate - Afr Amer 106 mL/min (>60); Globulin 4.3 g/dL (2.2-4.2); Glucose 86 mg/dL (74-106); High Density Lipoprotein 55 mg/dL; Potassium 3.8 mmol/L (3.5-5.1); Protein, Total 8.1 g/dL (6.4-8.2); Sodium Level 138 mmol/L (136-145); Thyroid Stim Hormone (TSH) 0.89 uIU/mL (0.358-3.74); Triglycerides 90 mg/dL; Very Low Density Lipoprotein 18 mg/dL (5-40)
== END 2021-10-06 23:59 | disposition home or self-care (01) ==
LOC: LAB 16:18
PROVIDERS: PCP Nurse Practitioner Adult Health; Referring Provider Nurse Practitioner Adult Health; Visit Provider Nurse Practitioner Adult Health
DX: F17.200 Nicotine dependence, unspecified, uncomplicated (principal); I10 Essential (primary) hypertension; K21.9 Gastro-esophageal reflux disease without esophagitis
CPT/HCPCS: 36415; 71046; 80053; 80061; 84443; 85025; 86677

== ENCOUNTER 2021-10-21 09:17 | Outpatient (CLI) | payer MEDICAID, SELFPAY ==
--- NOTE | 2021-10-22 10:24 | PFT ---
INTRODUCTION: The patient is a 56-year-old female that presents for pulmonary function studies secondary to a diagnosis of nicotine dependency. Respiratory therapy reported good patient effort. Bronchodilators were used during testing. INTERPRETATION: Forced expiration spirometry demonstrates no evidence of a large airways obstructive ventilatory defect. There was no significant response to aerosolized bronchodilators, based upon strict ATS criteria. Spirograms are of good quality and plateau normally. Body plethysmography was performed and reveals lung volumes to be within normal limits. Diffusing capacity by single breath CO is also within normal limits. IMPRESSION: Grossly normal pulmonary function studies.
== END 2021-10-21 23:59 | disposition home or self-care (01) ==
LOC: PSN 09:18
DX: F17.200 Nicotine dependence, unspecified, uncomplicated (principal)
CPT/HCPCS: 94060; 94726; 94729

== ENCOUNTER 2021-11-12 03:55 | Emergency (ER) | payer MEDICAID, SELFPAY ==
[2021-11-12 03:56] VITALS: BP 153/103; PULSE 88; RESP 17; TEMP 36.6; O2SAT 97; BMI 35.2
--- NOTE | 2021-11-12 04:13 | EDS_ITS ---
HPI History of Present Illness Chief Complaint: General Illness Detail of Chief Complaint: Sore throat Informant: patient Narrative Narrative: Patient presents to the emergency department complaint of pain in the left side of her throat and neck. She complains of painful swallowing. Symptoms started 2 days ago. She denies any fever. She does have a slight cough. Denies any Covid exposures. Patient has had the COVID vaccine and [address] ter. She denies exposure to anybody with strep throat. Prior similar symptoms: No PFSH PFSH Medical History (Updated 11/12/21 @ 05:[address] Prashanth Castanon, DO) Acid reflux Anxiety Asthma Blood in stool COPD (chronic obstructive pulmonary disease) 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 history excision abdominal wall tumor History Gallbladder Removal History of abnormal cervical Pap smear History of back problems History of benign neoplasm of stomach History of bloody stools Hyperthyroidism Hypothyroid Laryngeal mass Scoliosis Tobacco abuse Home Medications albuterol sulfate 1 puff INHALATION Q6H PRN PRN 09/25/14 [History Last Taken Unknown] aspirin 81 mg tablet,delayed release 81 mg PO DAILY 10/20/17 [History Last Taken Unknown] levothyroxine 137 mcg tablet 150 mcg PO DAILY 05/24/19 [History Last Taken Unknown] loratadine 10 mg tablet 10 mg PO DAILY 05/24/19 [History Last Taken Unknown] clindamycin HCl [Cleocin HCl] 300 mg PO Q6H #40 capsule 11/12/21 [Rx Last Taken Unknown] hydrocodone-acetaminophen 1 tab PO Q4H PRN PRN 2 Days #10 tablet 11/12/21 [Rx Last Taken Unknown] lisinopril 11/12/21 [History Last Taken Unknown] Allergy/AdvReac Type Severity Reaction Status Date / Time cephalexin monohydrate Allergy Hives Verified 05/24/19 10:40 [From Keflex] latex Allergy Rash Verified 05/24/19 10:40 Penicillins [PCN] Allergy Hives Verified 04/11/21 22:47 Family History Grandmother Colon cancer Grandfather Kidney disease Heart disease Sister Lung cancer Seizures Mother Cancer Diabetes Daughter Hypertension Thyroid disorder Surgical History History of delivery History of cholecystectomy Social History Smoking Status: Current every day smoker tobacco type: cigarettes second hand exposure: Yes quit status: not considering quitting alcohol intake: never substance use type: does not use caffeine: Yes what type of physical activity do you participate in: none seatbelt use: always do you feel safe at home: Yes additional social history: Employed Self reliance single ROS ROS ED Constitutional Constitutional ED: Reports systems reviewed and no addt'l complaints, except as documented; Denies body ache(s), change in weight or chills Eyes Eyes: Denies acute decrease in peripheral vision, change in vision, double vision or loss of vision ENT ENT ED: Reports none and sore throat; Denies ear pain, lip swelling, loss taste/smell, neck pain or otalgia Cardiovascular Cardiovascular: Reports none; Denies abdominal pain, chest pain with activity, leg edema, lightheadedness, palpitations, rapid heart rate or syncope Respiratory/Chest Respiratory/Chest: Reports none and cough; Denies change in mental status, dry cough, dyspnea, hemoptysis, shortness of breath at rest or shortness of breath with exertion Gastrointestinal Gastrointestinal: Reports none; Denies abdominal pain, change in stool characte r, diarrhea, hematemesis, hematochezia, melena, rectal bleeding or vomiting Genitourinary Genitourinary ED: Reports none; Denies abdominal discomfort, anuria, dysuria, genital pain or polyuria Musculoskeletal Musculoskeletal: Reports none; Denies arthralgias, back pain, difficulty walking, extremity pain, muscle weakness or myalgias Integumentary Reports none; Denies abscess or rash Neurologic Neurologic: Reports none; Denies abnormal gait, confusion, focal weakness, frequent falls, headache(s), loss of vision, numbness, paresthesias, radicular pain, vertigo or weakness Psychiatric Psychiatric: Reports systems reviewed and no addt'l complaints, except as documented and none; Denies behavioral changes, confusion, difficulty concen trating, hallucinations, suicidal ideation, tactile hallucinations or visual hallucinations Endocrine Endocrinology: Denies none, cold intolerance, excessive sweating, fatigue or heat intolerance Hematologic/Lymphatic Hematologic/Lymphatic: Reports none; Denies anemia, easy bleeding or easy bruising Allergic/Immunologic Allergic/Immunologic ED: Denies as per HPI, none, lip swelling, mouth swelling, throat swelling, tongue swelling or hives EXAM Physical Exam Const Vital Signs: 11/12/21 03:56 11/12/21 04:02 11/12/21 04:39 Temperature 97.9 F Temperature Source Temporal Pulse Rate 88 94 Respiratory Rate 17 24 H Respiratory Effort Normal Respiratory Pattern Normal Blood Pressure 153/103 H 137/89 H Blood Pressure Mean 119 105 Pulse Ox 97 98 Oxygen Delivery Method Room Air Nasal Cannula Oxygen Flow Rate (L/min) 2 Positive well nourished and well developed General Appearance ED: well developed and NAD HEENT Reports TM's clear and moist mucous membranes HEENT Narrative: No significant pharyngeal erythema noted. Uvula midline. Ther e is no angioedema of the tongue or oropharynx. No adenopathy palpated on exam. No masses palpated to the area of the neck anteriorly. normocephalic and atraumatic; Negative for trauma or tenderness Tympanic Membrane ED: Yes TM's clear Eyes PERRL and EOMs intact bilaterally General Eye ED: Negative for pale conjunctiva or scleral icterus Neck no lymphadenopathy, supple and no JVD General: Negative for tenderness Chest Wall inspection of chest normal and palpation of chest normal Chest: Negative for tenderness Resp normal respiratory effort and clear to auscultation bilaterally Effort and Inspection: Negative for respiratory distress or pain with movement Auscultation: Negative for rhonchi, wheezes or diminished lung sounds Cardio regular rate, regular rhythm, S1 normal heart sound, S2 normal heart sound and no murmurs Peripheral Pulses: pulses 2+ throughout GI normal to inspection, nondistended, normoactive bowel sounds, soft to palpation, non-tender, non-distended and no masses Back/Spine no CVA tenderness and no thoracic nor lumbar tenderness Extremity normal to inspection General Extremety ED: Negative for edema General Extremity: Negative for edema Neuro oriented x3, CN's II-XII intact bilaterally, no sensory deficits noted and gait normal Sensorium / Orientation: awake, alert, oriented to person, oriented to place and oriented to time Motor Exam: strength 5/5 throughout and strength abnormal Psych mental status grossly normal Skin no rashes or lesions noted and no wounds MDM MDM MDM Narrative Medical decision making narrative: Line established on arrival. Patient was given Decadron as well as Toradol IV. Rapid strep screen was positive. CT scan of the neck was obtained due to amount of discomfort and localization of the pain to the left side wanted to rule out retropharyngeal abscess. Lab Data Attestation: I reviewed the patient's lab results. Labs: Laboratory Results - last 24 hr 11/12/21 11/12/21 04:53 04:53 WBC 10.4 RBC 4.75 Hgb 15.1 H Hct 44.5 MCV 93.7 MCH 31.8 MCHC 33.9 RDW Std Deviation 45.5 H RDW Coeff of Vinicio 13.3 Plt Count 165 MPV 11.3 Immature Gran % (Auto) 0.200 Neut % (Auto) 71.2 H Lymph % (Auto) 20.4 [place] % (Auto) 5.9 Eos % (Auto) 2.0 Baso % (Auto) 0.3 Absolute Neuts (auto) 7.4 Absolute Lymphs (auto) 2.12 Nucleated RBC % 0 Sodium 140 Potassium 3.7 Chloride 108 H Carbon Dioxide 30.0 Anion Gap 2 L BUN 16 Creatinine 0.58 Estim Creat Clear Calc 102.81 Est GFR (MDRD) Af Amer 136 Est GFR (MDRD) Non-Af 113 BUN/Creatinine Ratio 27.4 H Glucose 102 Calcium 8.6 Radiography Diagnostic Testing: Clinical Impression(s) from Imaging Studies Soft Tissue Neck CT 11/12/21 04:39 IMPRESSION: Subtle asymmetric enhancement left palatine tonsils. Correlate for focal inflammation/tonsillitis. Small neoplasm not entirely excluded. If symptoms persist and/or worsen, consider direct visualization and/or further evaluation with MRI. Individualized dose optimization techniques were used for this CT. at 0612 Reported and signed by: Man Asencio MD Electronically Signed: Man Asencio MD at 6:11 EDT , Discharge Plan Triage Chief Complaint: General Illness ED Provider: Prashanth Castanon Dx/Rx/DC Orders Clinical Impression: Acute streptococcal pharyngitis Instructions: ED Pharyngitis, Strep (Confirmed) Prescriptions: New clindamycin HCl [Cleocin HCl] 300 MG capsule 300 mg PO Q6H Qty: 40 RF: 0 hydrocodone-acetaminophen [hydrocodone-acetaminophen] 1 TABLET tablet 1 tab PO Q4H PRN PRN (Reason: Pain) 2 Days Qty: 10 RF: 0 No Action aspirin [Adult Low Dose Aspirin] 81 mg tablet,delayed release (DR/EC) 81 mg PO DAILY RF: 0 loratadine [Claritin] 10 mg tablet 10 mg PO DAILY RF: 0 levothyroxine 137 mcg tablet 150 mcg PO DAILY RF: 0 albuterol sulfate 1 INHALER inhaler 1 puff inhalation Q6H PRN PRN (Reason: Asthma) RF: 0 lisinopril 20 mg tablet RF: 0 Primary Care Provider: Romi Dwyer Referrals: Juan M Bianchi MD [STAFF PHYSICIAN] - 3-5 Days Romi Dwyer NP-C [Primary Care Provider] - 3-5 Days Disposition Disposition: Home, Self Care
[2021-11-12 04:39] VITALS: BP 137/89; PULSE 94; RESP 24; O2SAT 98
--- NOTE | 2021-11-12 04:39 | CT_ITS ---
HISTORY: Throat pain with difficulty swallowing. Couple of days. EXAMINATION: CT Soft Tissue Neck W/ Contrast Injection TECHNIQUE: Helically acquired images were obtained of the neck following IV contrast. A radiation dose optimization technique was used for this scan. IV Contrast dosage and agent: 100mL Isovue-370 IV 100mL Isovue-370 COMPARISON: None FINDINGS: NASOPHARYNX: Unremarkable. SUPRAHYOID NECK: There is suggestion of subtle asymmetric enhancement left palatine tonsils without discrete abscess formation or discrete mass. Patent airway. Unremarkable epiglottis. No significant parapharyngeal edema. No retropharyngeal edema. INFRAHYOID NECK: Unremarkable larynx, hypopharynx, and supraglottis. THYROID: No focal lesions. SALIVARY GLANDS: Symmetric and unremarkable bilateral submandibular and parotid glands. LYMPH NODES: No cervical or supraclavicular lymphadenopathy. VASCULAR STRUCTURES: Unremarkable. VISUALIZED PORTIONS OF THE ORBITS, PARANASAL SINUSES, MASTOID AIR CELLS AND SKULL BASE: Unremarkable. BONES: Unremarkable. THORACIC INLET: Mild biapical lung scarring and right apical emphysematous bleb. CT/Soft Tissue Neck WITH Contrast IMPRESSION: Subtle asymmetric enhancement left palatine tonsils. Correlate for focal inflammation/tonsillitis. Small neoplasm not entirely excluded. If symptoms persist and/or worsen, consider direct visualization and/or further evaluation with MRI. Individualized dose optimization techniques were used for this CT. at 0612 Reported and signed by: Man Asencio MD Electronically Signed: Man Asencio MD at 6:11 EDT ,
[2021-11-12 04:59] LABS: Absolute Lymphocyte Count 2.12 X10^3/uL (0.83-4.51); Absolute Neutrophil Count 7.4 X10^3/uL (2.0-7.7); Basophil# 0.03 X10^3/uL; Basophil% 0.3 % (0-1); Eosinophil# 0.21 X10^3/uL; Hematocrit 44.5 % (37-47); Hemoglobin 15.1 g/dL (12.0-15.0); Lymphocyte # 2.12 X10^3/ul (0.83-4.51); Lymphocyte % 20.4 % (19-41); Mean Corp Hgb Conc 33.9 g/dL (32-36); Mean Corpuscular Hgb 31.8 pg (27.0-32.0); Mean Corpuscular Volume 93.7 fL (81-99); Mean Platelet Vol. 11.3 fl (6.2-12.0); Monocyte# 0.61 X10^3/uL; Monocyte% 5.9 % (0-10); NRBC Flagged by Analyzer 0 % (0-5); Neutrophil # 7.38 X10^3/uL (2.7-7.7); Neutrophil % 71.2 % (47-70); Platelet Count 165 K/mm3 (150-450); RBC Distribution Width CV 13.3 % (11.6-14.6); RBC Distribution Width SD 45.5 fl (35.1-43.9); Red Blood Count 4.75 M/mm3 (4.2-5.4); White Blood Count 10.4 K/mm3 (4.4-11.0)
[2021-11-12 05:13] LABS: Anion Gap 2 (5-15); BUN 16 mg/dL (7-18); BUN/Creat Ratio 27.4 RATIO (10-20); Calcium,Total 8.6 mg/dL (8.5-10.1); Chloride 108 mmol/L (98-107); Creatinine, Serum 0.58 mg/dL (0.55-1.02); EST Glomerular Filtration Rate 113 mL/min (>60); Est Glom Filt Rate - Afr Amer 136 mL/min (>60); Estimated Creatinine Clearance 102.81 ml/min; Glucose 102 mg/dL (74-106); Potassium 3.7 mmol/L (3.5-5.1); Sodium Level 140 mmol/L (136-145)
[2021-11-12] MEDS: Clindamycin HCl 150 MG Capsule 300 MG PO (06:24)
[2021-11-12] MEDS: Ketorolac 15 MG/ML Vial IV (06:25)
[2021-11-12] MEDS: dexAMETHasone 10 MG/ML Vial IV (06:25)
[2021-11-12 06:29] VITALS: PULSE 72; RESP 17; O2SAT 98
[2021-11-12 06:30] VITALS: RESP 17
== END 2021-11-12 06:31 | disposition home or self-care (01) ==
PROVIDERS: Emergency Provider Emergency Medicine; PCP Nurse Practitioner Adult Health; Visit Provider Emergency Medicine
DX: J02.0 Streptococcal pharyngitis (principal); F17.211 Nicotine dependence, cigarettes, in remission
CPT/HCPCS: 70491; 80048; 85025; 87811; 87880; 96374; 96375; 99284; Q9967

== ENCOUNTER → 2021-12-19 | Outpatient (CLI) | payer MEDICAID, SELFPAY ==
[2021-12-19 08:55] LABS: HIV - WCH Non-Reactive (Nonreactive); Syphilis Antibodies Non-reactive
== END | disposition home or self-care (01) ==
LOC: LAB 07:38
DX: Z01.411 Encounter for gynecological examination (general) (routine) with abnormal findings (principal)
CPT/HCPCS: 36415; 86703; 86780

== ENCOUNTER → 2021-12-29 | Outpatient (CLI) | payer MEDICAID, SELFPAY ==
[2021-12-29 14:02] LABS: ALB/GLOB Ratio 1.1 RATIO (0.9-2.4); AST(SGOT) 19 U/L (15-37); Alanine Aminotransfer ALT/SGPT 29 U/L (13-56); Albumin, Serum 3.8 g/dL (3.2-5.0); Alkaline Phosphatase 127 U/L (45-117); Anion Gap 5 (5-15); BUN 19 mg/dL (7-18); BUN/Creat Ratio 21.6 RATIO (10-20); Calcium,Total 8.8 mg/dL (8.5-10.1); Chloride 111 mmol/L (98-107); Cholesterol 153 mg/dL (200); Creatinine, Serum 0.88 mg/dL (0.55-1.02); EST Glomerular Filtration Rate 70 mL/min (>60); Est Glom Filt Rate - Afr Amer 85 mL/min (>60); Globulin 3.6 g/dL (2.2-4.2); Glucose 112 mg/dL (74-106); High Density Lipoprotein 54 mg/dL; Potassium 3.7 mmol/L (3.5-5.1); Protein, Total 7.4 g/dL (6.4-8.2); Sodium Level 141 mmol/L (136-145); Triglycerides 165 mg/dL; Very Low Density Lipoprotein 33 mg/dL (5-40)
== END | disposition home or self-care (01) ==
LOC: LAB 12:03
PROVIDERS: Referring Provider Nurse Practitioner Adult Health; Visit Provider Nurse Practitioner Adult Health
DX: E78.2 Mixed hyperlipidemia (principal)
CPT/HCPCS: 36415; 80053; 80061

== ENCOUNTER → 2022-02-12 | Outpatient (CLI) | payer MEDICAID, SELFPAY ==
--- NOTE | 2022-02-12 07:11 | BI_ITS ---
MAMMOGRAPHY - BILATERAL SCREENING REASON FOR EXAM: Female, 56 years old. Routine annual screening examination. PERTINENT HISTORY: Aunts with breast cancer. TECHNIQUE: Digital bilateral breast jacob (3D mammographic acquisition) in the CC and MLO projections. 2-D mediolateral oblique (MLO) and craniocaudad (CC) views of both breasts were obtained. CAD: Full Field Digital Mammography with Computer Added Detection was performed. COMPARISON: Comparison is made with prior study dated 06/02/2019 and 10/27/2017. FINDINGS: Breast Composition: The breasts are heterogeneously dense, which may obscure small masses. There are no dominant masses or suspicious calcifications. Stable small benign-appearing bilateral axillary lymph nodes. No other significant abnormalities are identified. There has been no significant change since the prior study. BI/SCRN MAMM (CAD)W/JACOB BILAT IMPRESSION: Stable bilateral screening mammogram. Yearly follow-up mammogram recommended. (A) ASSESSMENT CATEGORY: BIRADS Category 2: Benign. A letter regarding these results will be sent to the patient by the facility within 30 days. Approximately 10% of breast cancers are not detected by mammography. A normal mammogram should not delay biopsy of a clinically suspicious abnormality. [id number] Electronically Signed: Jermaine Self MD at 8:42 EDT ,
== END | disposition home or self-care (01) ==
LOC: OPBI 07:10
PROVIDERS: PCP Internal Medicine; Referring Provider Internal Medicine; Visit Provider Internal Medicine
DX: Z12.31 Encounter for screening mammogram for malignant neoplasm of breast (principal)
CPT/HCPCS: 77063; 77067

== ENCOUNTER 2022-11-14 15:30 | Emergency (ER) | payer OTHER, SELFPAY ==
[2022-11-14 15:30] VITALS: PULSE 98; O2SAT 93
[2022-11-14 15:31] VITALS: BP 134/75; PULSE 103; RESP 18; TEMP 35.9; O2SAT 95; BMI 31.3
--- NOTE | 2022-11-14 15:46 | EKG12_ITS ---
Test Reason : CHEST TIGHTNESS Blood Pressure : / mmHG Vent. Rate : 094 BPM Atrial Rate : 094 BPM P-R Int : 190 ms QRS Dur : 074 ms QT Int : 334 ms P-R-T Axes : 077 065 069 degrees QTc Int : 417 ms Normal sinus rhythm Normal ECG Confirmed by SHAD GIBSON, JEAN ([id number]), supervising editor news reel RENE CUEVAS ([id number]) on 11/16/2022 9:46:49 AM Referred By: AR Confirmed By:SCOTTIE KULKARNI MD
--- NOTE | 2022-11-14 15:47 | ED.VIS.DYS ---
HPI History of Present Illness Chief Complaint: Shortness of Breath Narrative Narrative: 57-year-old female past medical history of asthma, states she has had cough and dyspnea on exertion for the last 4 weeks. She is coughing up greenish-yellow sputum. She states her chest feels tight but she denies any chest pain. She has been using her inhaler without relief of her symptoms. She states has been at least a month since she has been on steroids for her breathing. Of note, she was a smoker of 2 packs a day and is down to 3 to 6 cigarettes a day. She denies any fevers or chills. No current leg swelling, no DVT or PE risk factors. [facility] Medical History Acid reflux Anxiety Asthma Blood in stool COPD (chronic obstructive pulmonary disease) 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 history excision abdominal wall tumor History Gallbladder Removal History of abnormal cervical Pap smear History of back problems History of benign neoplasm of stomach History of bloody stools Hypertension Hyperthyroidism Hypothyroid Laryngeal mass Scoliosis Seasonal allergies Tobacco abuse Home Medications pantoprazole 40 mg tablet,delayed release 40 mg PO DAILY 01/29/22 [History Last Taken Unknown] amlodipine 5 mg tablet 5 mg PO DAILY #90 tabs 05/07/22 [Rx Last Taken Unknown] aspirin 81 mg capsule 81 mg PO DAILY #90 caps 05/07/22 [Rx Last Taken Unknown] atorvastatin 10 mg tablet 10 mg PO QHS #90 tabs 05/07/22 [Rx Last Taken Unknown] levothyroxine 150 mcg tablet 150 mcg PO DAILY #90 tabs 05/07/22 [Rx Last Taken Unknown] azithromycin 250 mg tablet See Rx Instructions PO .COMPLEX #6 tabs 11/14/22 [Rx Last Taken Unknown] prednisone 20 mg tablet 40 mg PO DAILY #20 tabs 11/14/22 [Rx Last Taken Unknown] Allergy/AdvReac Type Severity Reaction Status Date / Time cephalexin monohydrate Allergy Hives Verified 11/14/22 15:36 [From Keflex] latex Allergy Rash Verified 11/14/22 15:36 Penicillins [PCN] Allergy Hives Verified 11/14/22 15:36 Family History Grandmother Colon cancer Grandfather Kidney disease Heart disease Sister Lung cancer Seizures Mother Cancer Diabetes Daughter Hypertension Thyroid disorder Surgical History History of delivery History of cholecystectomy Social History Smoking Status: Current every day smoker tobacco type: cigarettes second hand exposure: Yes quit status: not considering quitting alcohol intake: never substance use type: does not use caffeine: Yes what type of physical activity do you participate in: none seatbelt use: always do you feel safe at home: Yes additional social history: Employed [employer] single ROS ROS ED ROS Narrative Constitutional: No fever, no chills. HEENT: No sore throat. No neck pain. No loss of vision. Positive nasal congestion alternating with rhinorrhea. Cardiovascular: No chest pain. No palpitations. No pedal edema. Respiratory: Positive productive cough of green to yellow sputum, positive dyspnea on exertion and shortness of breath with chest tightness. Abdominal: No abdominal pain. No nausea. No vomiting. Genitourinary: No dysuria. No hematuria. Musculoskeletal: No myalgias. No arthralgias. Neurologic: No headaches. No dizziness. No lightheadedness. Skin: No rash. No change in color. Psychiatric: No depression. No anxiety. EXAM Physical Exam Narrative Exam Narrative: Afebrile. Vital signs noted. HEENT: Normocephalic. Atraumatic. PERRL, EOMI. Neck soft and supple. No point tenderness or step off. Cardiovascular: Regular rate and rhythm. No murmurs, rubs, or gallops appreciated. Respiratory: No tachypnea. Moving a fair amount of air. Is able to speak in full sentences. No accessory muscle use. Coughs on examination. Occasional expiratory wheeze. Gastrointestinal: Abdomen soft, nontender, with normoactive bowel sounds. No rebound or guarding. Neurological: Awake. Alert. Nonfocal, nonlateralizing. Skin: No rash. Normal color. No pallor. Musculoskeletal: No pedal edema. Full range of motion extremities. Const Vital Signs: 11/14/22 15:31 11/14/22 15:30 11/14/22 15:30 Temperature 96.7 F L Temperature Source Temporal Pulse Rate 103 H 98 Respiratory Rate 18 Respiratory Effort Short of Breath Respiratory Depth Shallow Respiratory Pattern Tachypnea Blood Pressure 134/75 H Blood Pressure Mean 94 Pulse Ox 95 Oxygen Delivery Method Room Air Room Air 11/14/22 15:52 11/14/22 16:39 Temperature Temperature Source Pulse Rate 89 87 Respiratory Rate 18 22 H Respiratory Effort Respiratory Depth Respiratory Pattern Normal Blood Pressure 126/57 H Blood Pressure Mean 80 Pulse Ox 96 Oxygen Delivery Method Room Air MDM MDM MDM Narrative Medical decision making narrative: I reviewed her prior records, she does have history of COPD. I do feel this may be more of a COPD exacerbation/asthma exacerbation. In the differential diagnosis, although lower, would be congestive heart failure. Additionally, she may have developed a pneumonia from a chronic bronchitis. Comprehensive work-up was pursued. She was given a DuoNeb aerosolized treatment. This was along with Solu-Medrol 125 mg intravenously. EKG was obtained and interpreted by myself which demonstrates normal sinus rhythm at 94 bpm without ectopy or acute ST changes. No STEMI. I reviewed her laboratory work, she has normal white count of 10.3, hemoglobin normal at 13.9, so I do not think that anemia is the cause of her shortness of breath. Platelet count normal at 176. Review of her BMP shows chloride elevated at 111 but a normal sodium of 145 with a potassium of 3.8. Glucose appropriately elevated at 112 with an anion gap normal at 6. BNP is also normal at 21.5. Chest x-ray interpreted by myself shows no evidence of an acute process, no pneumonia or pneumothorax. I reviewed the radiology report which confirms my independent interpretation. At this point in time, after repeat examination, although she feels the same, I feel that she can be discharged safely home. Given that she has had a cough for 4 weeks I will put her on a Z-Iain for atypical pneumonia and for steroid burst for the next 10 days. She was given a prescription for 40 mg of prednisone and told to use her inhaler every 4-6 hours especially over the next 48 hours. She will follow-up with her primary care provider. Smoking cessation was discussed. Return instructions reviewed. Disposition is discharged home in stable condition. Lab Data Attestation: I reviewed the patient's lab results. Labs: Laboratory Results - last 24 hr 11/14/22 11/14/22 11/14/22 15:53 15:53 15:53 WBC 10.3 RBC 4.55 Hgb 13.9 Hct 42.5 MCV 93.4 MCH 30.5 MCHC 32.7 RDW Std Deviation 44.9 H RDW Coeff of Vinicio 13.1 Plt Count 176 MPV 11.6 Immature Gran % (Auto) 0.300 Neut % (Auto) 64.7 Lymph % (Auto) 25.3 [place] % (Auto) 7.2 Eos % (Auto) 2.1 Baso % (Auto) 0.4 Absolute Neuts (auto) 6.7 Absolute Lymphs (auto) 2.61 Nucleated RBC % 0 Sodium 145 Potassium 3.8 Chloride 111 H Carbon Dioxide 28.0 Anion Gap 6 BUN 15 Creatinine 0.66 Estim Creat Clear Calc 89.25 Est GFR (MDRD) Af Amer 117 Est GFR (MDRD) Non-Af 97 BUN/Creatinine Ratio 22.6 H Glucose 112 H Calcium 8.6 B-Natriuretic Peptide 21.5 Radiography Diagnostic Testing: Clinical Impression(s) from Imaging Studies Chest X-Ray 11/14/22 16:05 IMPRESSION: No radiographic evidence of acute cardiopulmonary disease. Electronically Signed: Donato Buckley MD at 16:22 EDT Reading Location ID and State: Formerly named [facility] / [place] , Service support , Discharge Plan Triage Chief Complaint: Shortness of Breath ED Provider: Luis Miguel Pan Dx/Rx/DC Orders Clinical Impression: COPD exacerbation, Cough, Shortness of breath, Smoker Instructions: ED COPD Flare, ED Dyspnea Prescriptions: New prednisone 20 mg tablet 40 mg PO DAILY Qty: 20 0RF azithromycin 250 mg tablet See Rx Instructions .ROUTE .COMPLEX Qty: 6 0RF Rx Instructions: For 250 mg dose pack: take 500 mg today (day 1), then 250 mg for 4 days (days 2-5) No Action pantoprazole 40 mg tablet,delayed release (DR/EC) 40 mg PO DAILY amlodipine 5 mg tablet 5 mg PO DAILY Qty: 90 3RF aspirin 81 mg capsule 81 mg PO DAILY Qty: 90 3RF atorvastatin 10 mg tablet 10 mg PO QHS Qty: 90 3RF levothyroxine 150 mcg tablet 150 mcg PO DAILY Qty: 90 3RF Primary Care Provider: Zuly Cantor Referrals: Zuly Cantor MD [Primary Care Provider] - 3-5 Days if not improving Activity Restrictions/Additional Instructions: Stop smoking. Take medication as directed. Use your albuterol inhaler 2 puffs every 4-6 hours as needed for shortness of breath. Disposition Disposition: Home, Self Care
[2022-11-14 15:52] VITALS: PULSE 89; RESP 18
[2022-11-14] MEDS: Ipratropium/Albuterol Sulfate 3 ML AMPUL.NEB INHALATION (15:52)
[2022-11-14] MEDS: MethylPREDNISolone 125 MG/2 ML Vial IV (16:01)
[2022-11-14 16:04] LABS: Absolute Lymphocyte Count 2.61 X10^3/uL (0.83-4.51); Absolute Neutrophil Count 6.7 X10^3/uL (2.0-7.7); Basophil# 0.04 X10^3/uL; Basophil% 0.4 % (0-1); Eosinophil# 0.22 X10^3/uL; Eosinophils% 2.1 % (0-5); Hematocrit 42.5 % (37-47); Hemoglobin 13.9 g/dL (12.0-15.0); Lymphocyte # 2.61 X10^3/ul (0.83-4.51); Lymphocyte % 25.3 % (19-41); Mean Corp Hgb Conc 32.7 g/dL (32-36); Mean Corpuscular Hgb 30.5 pg (27.0-32.0); Mean Corpuscular Volume 93.4 fL (81-99); Mean Platelet Vol. 11.6 fl (6.2-12.0); Monocyte# 0.74 X10^3/uL; Monocyte% 7.2 % (0-10); NRBC Flagged by Analyzer 0 % (0-5); Neutrophil # 6.67 X10^3/uL (2.7-7.7); Neutrophil % 64.7 % (47-70); Platelet Count 176 K/mm3 (150-450); RBC Distribution Width CV 13.1 % (11.6-14.6); RBC Distribution Width SD 44.9 fl (35.1-43.9); Red Blood Count 4.55 M/mm3 (4.2-5.4); White Blood Count 10.3 K/mm3 (4.4-11.0)
--- NOTE | 2022-11-14 16:05 | RAD_ITS ---
EXAM: XR CHEST, 1 VIEW CLINICAL INDICATION: cough, SOB TECHNIQUE: Frontal view of the chest. This report was created using [employer] report generation technology. COMPARISON: 10.06.21 FINDINGS: LUNGS AND PLEURAL SPACES: Unremarkable. No consolidation or edema. No pneumothorax. No effusion. HEART: Unremarkable. Cardiac silhouette not enlarged. MEDIASTINUM: Central airways and mediastinal contour are unremarkable. BONES/JOINTS: Unremarkable. SOFT TISSUES: Unremarkable. RAD/Chest 1 View (Portable) IMPRESSION: No radiographic evidence of acute cardiopulmonary disease. Electronically Signed: Donato Buckley MD at 16:22 EDT ,
[2022-11-14 16:22] LABS: Anion Gap 6 (5-15); BUN 15 mg/dL (7-18); BUN/Creat Ratio 22.6 RATIO (10-20); Calcium,Total 8.6 mg/dL (8.5-10.1); Chloride 111 mmol/L (98-107); Creatinine, Serum 0.66 mg/dL (0.55-1.02); EST Glomerular Filtration Rate 97 mL/min (>60); Est Glom Filt Rate - Afr Amer 117 mL/min (>60); Estimated Creatinine Clearance 89.25 ml/min; Glucose 112 mg/dL (74-106); Potassium 3.8 mmol/L (3.5-5.1); Sodium Level 145 mmol/L (136-145)
[2022-11-14 16:24] LABS: BNP,B-Type NATRIURETIC PEPTIDE 21.5 pg/mL (0-100)
[2022-11-14 16:29] VITALS: O2SAT 97
[2022-11-14 16:39] VITALS: BP 126/57; PULSE 87; RESP 22; O2SAT 96
[2022-11-14 17:05] VITALS: BP 126/57; PULSE 97; RESP 19; O2SAT 98
== END 2022-11-14 17:15 | disposition home or self-care (01) ==
PROVIDERS: Emergency Provider Emergency Medicine; PCP Internal Medicine; Visit Provider Emergency Medicine
DX: J44.1 Chronic obstructive pulmonary disease with (acute) exacerbation (principal); I50.9 Heart failure, unspecified; R05.9 Cough, unspecified; R06.02 Shortness of breath; F17.210 Nicotine dependence, cigarettes, uncomplicated
CPT/HCPCS: 71045; 80048; 83880; 85025; 93005; 96374; 99284; A4216

== ENCOUNTER → 2022-12-09 | Outpatient (CLI) | payer OTHER, SELFPAY ==
--- NOTE | 2022-12-09 15:47 | RAD_ITS ---
INDICATION: COUGH EXAMINATION/TECHNIQUE: X-RAY - XR Chest 2 Views COMPARISON: None. FINDINGS: LINES/DEVICES: None. LUNGS: No consolidation, edema or effusion. No pneumothorax. MEDIASTINUM AND CARDIOVASCULAR STRUCTURES: Cardiac silhouette not enlarged. Central airways and mediastinal contour are unremarkable. BONES AND SOFT TISSUES: Unremarkable. RAD/Chest PA and Lateral IMPRESSION: No radiographic evidence of acute cardiopulmonary disease. Electronically Signed: Shahid Hunt DO at 20:18 EDT ,
== END | disposition home or self-care (01) ==
LOC: MTRAD 15:45
PROVIDERS: PCP Internal Medicine; Referring Provider Nurse Practitioner Family; Visit Provider Nurse Practitioner Family
DX: R06.02 Shortness of breath (principal)
CPT/HCPCS: 71046

== ENCOUNTER → 2023-06-07 | Outpatient (CLI) | payer OTHER, SELFPAY ==
[2023-06-07 18:42] LABS: AST(SGOT) 16 U/L (15-37); Alanine Aminotransfer ALT/SGPT 25 U/L (13-56); Albumin, Serum 3.7 g/dL (3.2-5.0); Alkaline Phosphatase 149 U/L (45-117); Anion Gap 6 (5-15); BUN 17 mg/dL (7-18); Calcium,Total 8.6 mg/dL (8.5-10.1); Chloride 111 mmol/L (98-107); Cholesterol 118 mg/dL (200); Creatinine, Serum 0.63 mg/dL (0.55-1.02); EST Glomerular Filtration Rate 103 mL/min (>60); Est Glom Filt Rate - Afr Amer 124 mL/min (>60); Free T3 2.9 pg/mL (2.18-3.98); Globulin 3.7 g/dL (2.2-4.2); Glucose 78 mg/dL (74-106); High Density Lipoprotein 45 mg/dL; Potassium 3.5 mmol/L (3.5-5.1); Protein, Total 7.4 g/dL (6.4-8.2); Sodium Level 143 mmol/L (136-145); T4 Free Direct 1.31 ng/dL (0.76-1.46); Thyroid Stim Hormone (TSH) 0.24 uIU/mL (0.358-3.74); Triglycerides 97 mg/dL; Very Low Density Lipoprotein 19 mg/dL (5-40)
[2023-06-11 15:08] LABS: HPV APTIMA, High Risk Negative (Negative)
[2023-06-11 16:24] LABS: HPV Reflexed? YES, CHARGE PATIENT
== END | disposition home or self-care (01) ==
LOC: MFPLAB 15:48
PROVIDERS: PCP Family Medicine; Visit Provider Family Medicine
DX: Z12.4 Encounter for screening for malignant neoplasm of cervix (principal); E03.9 Hypothyroidism, unspecified; I10 Essential (primary) hypertension
CPT/HCPCS: 36415; 80053; 80061; 84439; 84443; 84481; 87624; 88175; G0145

== ENCOUNTER → 2023-06-17 | Outpatient (CLI) | payer OTHER, SELFPAY ==
--- NOTE | 2023-06-17 14:28 | BI_ITS ---
MAMMOGRAPHY - BILATERAL SCREENING 3-D TOMOSYNTHESIS REASON FOR EXAM: Female, 57 years old. Routine screening mammogram PERTINENT HISTORY: Aunts with breast cancer.. TECHNIQUE: 2-D mammograms and 3-D Tomosynthesis of the breast (s) were performed. CAD was performed. COMPARISON: 02/12/2022 FINDINGS: The breast composition is composed of scattered fibroglandular density. Scattered benign calcifications are seen. No dense spiculated masses or suspicious microcalcifications are identified. No architectural distortion is identified. There is no skin thickening or retraction. There has been no significant change since the prior study. BI/SCRN MAMM (CAD)W/JACOB BILAT IMPRESSION: No mammographic signs of malignancy. Routine yearly mammograms recommended. ASSESSMENT CATEGORY: BIRADS Category 1: Negative. A letter regarding these results will be sent to the patient by the facility within 30 days. FOLLOW UP RECOMMENDATION: Yearly follow up mammogram recommended. (A) Approximately 10% of breast cancers are not detected by mammography. A normal mammogram should not delay biopsy of a clinically suspicious abnormality. Electronically Signed: Michael Cain MD at 18:32 EDT ,
--- NOTE | 2023-06-17 14:52 | BD_ITS ---
STUDY: DUAL ENERGY X-RAY ABSORPTIOMETRY / DXA REASON FOR EXAM: Female, 57 years old. V76.12ScreeningBONE DENSITY REASON FOR EXAM TECHNIQUE: Bone Mineral Density (BMD) measurements of lumbar spine and bilateral hips were obtained. COMPARISON: None. FINDINGS: Lumbar Spine (L1-L4): g/cm2 (1.165) / T-score (1.1) / Z-score (2.5) Findings are suggestive of normal bone density with a low fracture risk. Left Femur Total: g/cm2 (0.952) / T-score (0.1) / Z-score (1.0) Left Femoral Neck: g/cm2 (0.847) / T-score (0.0) / Z-score (1.3) Right Femur Total: g/cm2 (0.966) / T-score (0.2) / Z-score (1.1) Right Femoral Neck: g/cm2 (0.870) / T-score (0.2) / Z-score (1.5) BD/Dexa Bone Density Study IMPRESSION: The patient is considered normal as outlined below according to World [employer] Organization (WHO) criteria with a low fracture risk. Reference Information: The T-score is the number of standard deviations above or below the standard which is normal for young adults at their peak bone mineral density. The World Health Organization (WHO) interprets the T-scores as follows: Above -1 Normal bone density Between -1 and -2.5 Osteopenia Equal to / or below -2.5 Osteoporosis As a practical clinical guideline, osteopenia may be graded as follows: Mild -1 through -1.5 Moderate -1.6 through -2.0 Severe -2.1 through -2.4 The Z-score is the number of standard deviations above or below age-matched controls. A Z-score of less than -1.5 would be considered abnormal. References: 1. NIH Osteoporosis and Related Bone Diseases www osteo.org 2. International Society for Clinical Densitometry www iscd.org 3. National Osteoporosis Foundation www nof.org Electronically Signed: Jermaine Self MD at 14:33 EDT ,
== END | disposition home or self-care (01) ==
PROVIDERS: PCP Family Medicine; Referring Provider Family Medicine; Visit Provider Family Medicine
DX: Z13.820 Encounter for screening for osteoporosis (principal); Z12.31 Encounter for screening mammogram for malignant neoplasm of breast
CPT/HCPCS: 77063; 77067; 77080

== ENCOUNTER → 2023-09-10 | Outpatient (CLI) | payer OTHER, SELFPAY ==
--- OUTSIDE RECORDS SUMMARY | 2023-09-10 17:20 | XMS RPT_ITS | CCD ---
Author Name Unknown Address [id number] [place] [address] Organization [facility] Results Test Name Value Interpretation Reference Range Facil ity Progress note 09-22-2021 Note Date & Type Note Facility 09-22-2021 Note HNO ID: [id number] Author: Rosette Nava APRN.TRANSITIONAL CARE MANAGER Service: ? Author Type: Nurse Practitioner Type: Progress Notes Filed: 09/22/2021 10:38 AM Note Text: SUBJECTIVE Cindi Goldstein is a 56 year old female who presents with 1 day of symptoms that are stable. Symptoms include: Fever (?100.4F): No or Chills: No Cough: Yes Shortness of breath: No or Difficulty breathing: No Fatigue: No Muscle aches: Yes Headache: No New loss of smell or taste: No Sore throat: Yes Nasal congestion: Yes or Rhinorrhea: No Nausea: No or Vomiting: Yes Diarrhea: No High risk category assessment Chronic lung disease Exposures: Sick contacts? No Family or close contacts with confirmed/probable COVID-19 in last 14 days? No She reports that she has been smoking. She has smoked for the past 34.00 years. She has never used smokeless tobacco. BP 150/92 Pulse 97 Temp 36.5 ?C (97.7 ?F) Resp 18 Wt 94.3 kg (207 lb 12.8 oz) SpO2 94% BMI 32.61 kg/m? PAST MEDICAL HISTORY Diagnosis Date - Asthma - Asthma, mild intermittent 01/10/2014 - Chronic obstructive pulmonary disease (COPD) (HCC) - Depression - Elbow fracture 02/2015 left - GERD (gastroesophageal reflux disease) - Hyperlipidemia - Hypothyroidism - Kidney disease - Scoliosis - Snoring PAST SURGICAL HISTORY Procedure Laterality Date - DELIVERY ONLY , low transverse x 2 - COLONOSCOPY 06/08/2014 + polyps, repeat 5 yrs - COLSC FLX W/REMOVAL LESION BY HOT BX FORCEPS 12/15/2016 adenomatous polyp - 3 year follow up - EGD TRANSORAL BIOPSY SINGLE/MULTIPLE 12/15/2016 reflux esophagitis - LAPS SURG CHOLECYSTECTOMY W/CHOLANGIOGRAPHY 01/15/15 normal IOC - 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 VENTOLIN HFA 90 mcg/actuation inhaler INHALE TWO(2) PUFFS BY MOUTH EVERY 6 HOURS NEEDED aspirin, enteric coated (ASPIRIN, ENTERIC COATED) 81 mg EC tablet TAKE 1 TABLET BY MOUTH ONCE DAILY. levothyroxine (SYNTHROID) 137 mcg tablet TAKE 1 TABLET BY MOUTH ONCE DAILY. budesonide-formoterol (SYMBICORT) 160-4.5 mcg/actuation inhaler Inhale 2 Puffs as instructed twice daily. FAMILY HISTORY Problem Relation Age of Onset - Diabetes Mother - Cancer Mother lung - Hypertension Mother - Cancer Maternal Grandmother lung - Cancer Sister cervical - Seizures Sister - Coronary Artery Disease Father had 3 CO's - Diabetes Sister - Thyroid Child daughter Social History Tobacco Use - Smoking status: Light Tobacco Smoker Years: 34.00 - Smokeless tobacco: Never Used - Tobacco comment: 2 cigarette per day Substance Use Topics - Alcohol use: No Comment: occasionally - Drug use: No OBJECTIVE Physical Exam Vitals and nursing note reviewed. Constitutional: Appearance: Normal appearance. HENT: Mouth/Throat: Mouth: Mucous membranes are moist. Pharynx: Oropharynx is clear. Posterior oropharyngeal erythema (slight) present. No oropharyngeal exudate. Cardiovascular: Rate and Rhythm: Normal rate and regular rhythm. Heart sounds: Normal heart sounds. Pulmonary: Effort: Pulmonary effort is normal. No respiratory distress. Breath sounds: Normal breath sounds. No wheezing or rales. Skin: General: Skin is warm and dry. Findings: No erythema or rash. Neurological: Mental Status: She is alert. ASSESSMENT/PLAN ASSESSMENT/PLAN: 1. Sore throat - ICD9: 462, ICD10: J02.9 (primary diagnosis) - suspect viral - Alere Strep Test NEGATIVE, no culture pending - Discussed supportive care treatment with fluids, rest and analgesia. - STREP A MOLECULAR (POC) 2. Suspected COVID-19 virus infection - ICD9: V01.79, ICD10: Z20.822 - COVID WITH FLUA+B, ROUTINE Rosette Nava APRN.TRANSITIONAL CARE MANAGER - Meets symptom-based criteria for testing and is high risk. - COVID swab collected at time of office visit - Instructed to isolate pending test results - Discussed symptom monitoring and supportive care - Red flag symptoms requiring follow up discussed This patient encounter involved the screening or treatment of novel coronavirus infection (COVID-19). [facility] Progress note 04-07-2021 Note Date & Type Note Facility 04-07-2021 Note HNO ID: [id number] Author: Opal Ulloa APRN.TRANSITIONAL CARE MANAGER Service: ? Author Type: Nurse Practitioner Type: Progress Notes Filed: 04/07/2021 8:27 PM Note Text: This note was created using [employer]. Subjective Cindi Goldstein is a 55 year old female. 55 year old female with PMH hyperlipidemia, asthma, COPD, GERD, thyroid and depression presents with complaints of sore throat and congestion. Acute onset of symptoms around 02/11/21. She was seen here on 02/12/21 for same. COVID tested and negative. x2 COVID vaccine Diagnosed with viral URI States symptoms are worsening +sinus pressure +purulent drainage +headache + cough, dry +congestion. Denies ear pain. Denies SOB. Denies CP. Denies fever or chills. Has used Mucinex without relief. +tobacco usage. The history is provided by the patient. No roentgenologist was used. URI She complains of cough. There is no chest tightness, difficulty breathing, frequent throat clearing, hemoptysis, hoarse voice, shortness of breath, sputum production or wheezing. This is a new problem. The current episode started 1 to 4 weeks ago. The problem occurs constantly. The problem has been gradually worsening. The cough is non-productive. Associated symptoms include ear congestion, malaise/fatigue, nasal congestion, postnasal drip and a sore throat. Pertinent negatives include no appetite change, chest pain, dyspnea on exertion, ear pain, fever, headaches, heartburn, myalgias, orthopnea, PND, rhinorrhea, sneezing, sweats, trouble swallowing or weight loss. Her symptoms are aggravated by nothing. Her symptoms are alleviated by nothing. She reports no improvement on treatment. Her symptoms are not alleviated by anxiolytic. Risk factors for lung disease include smoking/tobacco exposure. Her past medical history is significant for asthma and COPD. There is no history of bronchiectasis, bronchitis, emphysema or pneumonia. PAST MEDICAL HISTORY Diagnosis Date - Asthma - Asthma, mild intermittent 01/10/2014 - Chronic obstructive pulmonary disease (COPD) (HCC) - Depression - Elbow fracture 02/2015 left - GERD (gastroesophageal reflux disease) - Hyperlipidemia - Hypothyroidism - Kidney disease - Scoliosis - Snoring PAST SURGICAL HISTORY Procedure Laterality Date - DELIVERY ONLY , low transverse x 2 - COLONOSCOPY 06/08/2014 + polyps, repeat 5 yrs - COLONS W/REM POLYP HT BX 12/15/2016 adenomatous polyp - 3 year follow up - EGD W/O BRSH SPECIMEN W/BX 12/15/2016 reflux esophagitis - LAP CHOLECYSTECT/CHOLANGIOGRAPHY 01/15/15 normal IOC - 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 aspirin, enteric coated (ASPIRIN, ENTERIC COATED) 81 mg EC tablet TAKE 1 TABLET BY MOUTH ONCE DAILY. levothyroxine (SYNTHROID) 137 mcg tablet TAKE 1 TABLET BY MOUTH ONCE DAILY. budesonide-formoterol (SYMBICORT) 160-4.5 mcg/actuation inhaler Inhale 2 Puffs as instructed twice daily. amoxicillin-clavulanic acid (AUGMENTIN) 875-125 mg per tablet Take 1 tablet by mouth twice daily for 14 days. doxycycline (VIBRA-TABS) 100 mg tablet Take 1 tablet by mouth twice daily for 10 days. VENTOLIN HFA 90 mcg/actuation inhaler INHALE TWO(2) PUFFS BY MOUTH EVERY 6 HOURS NEEDED FAMILY HISTORY Problem Relation Age of Onset - Diabetes Mother - Cancer Mother lung - Hypertension Mother - Cancer Maternal Grandmother lung - Cancer Sister cervical - Seizures Sister - Coronary Artery Disease Father had 3 CO's - Diabetes Sister - Thyroid Child daughter Social History Tobacco Use - Smoking status: Light Tobacco Smoker Years: 34.00 - Smokeless tobacco: Never Used - Tobacco comment: 2 cigarette per day Substance Use Topics - Alcohol use: No Comment: occasionally - Drug use: No Review of Systems Constitutional: Positive for malaise/fatigue. Negative for appetite change, chills, diaphoresis, fatigue, fever and weight loss. HENT: Positive for congestion, postnasal drip, sinus pain and sore throat. Negative for dental problem, drooling, ear discharge, ear pain, facial swelling, hearing loss, hoarse voice, mouth sores, nosebleeds, rhinorrhea, sinus pressure, sneezing and trouble swallowing. Eyes: Negative for photophobia, pain, discharge, redness, itching and visual disturbance. Respiratory: Positive for cough. Negative for apnea, hemoptysis, sputum production, choking, chest tightness, shortness of breath and wheezing. Cardiovascular: Negative for chest pain, dyspnea on exertion, palpitations, leg swelling and PND. Gastrointestinal: Negative for abdominal pain, diarrhea, heartburn, nausea and vomiting. Musculoskeletal: Negative for arthralgias, back pain, gait problem, joint swelling and myalgias. Skin: Negative for color change (more content not included)... [facility] Progress note 02-13-2021 Note Date & Type Note Facility 02-13-2021 Note HNO ID: [id number] Author: Jarett Reno MD Service: ? Author Type: Physician Type: Progress Notes Filed: 02/13/2021 11:48 AM Note Text: Patient presents with: Headache: CRABTREE, chills and congestion x 1 day HPI: Feeling sick since yesterday. Positive symptoms: headache, chills, Cough, Chest tightness, Sore throat, Sinus pressure, Nasal Congestion, Rhinorrhea, Post nasal drainage, Body Aches, Nausea, Negative symptoms: Fever, Vomiting, Diarrhea, OTC: Mucinex Completed COVID vaccine. 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 No known sick contacts. PAST MEDICAL HISTORY Diagnosis Date - Asthma - Asthma, mild intermittent 01/10/2014 - Chronic obstructive pulmonary disease (COPD) ([facility]) - Depression - Elbow fracture 02/2015 left - GERD (gastroesophageal reflux disease) - Hyperlipidemia - Hypothyroidism - Kidney disease - Scoliosis - Snoring MEDICATIONS: Current Outpatient Medications Medication Sig - aspirin, enteric coated (ASPIRIN, ENTERIC COATED) 81 mg EC tablet TAKE 1 TABLET BY MOUTH ONCE DAILY. - levothyroxine (SYNTHROID) 137 mcg tablet TAKE 1 TABLET BY MOUTH ONCE DAILY. - budesonide-formoterol (SYMBICORT) 160-4.5 mcg/actuation inhaler Inhale 2 Puffs as instructed twice daily. - loratadine (CLARITIN) 10 mg tablet Take 1 tablet by mouth once daily. - VENTOLIN HFA 90 mcg/actuation inhaler INHALE TWO(2) PUFFS BY MOUTH EVERY 6 HOURS NEEDED (Patient not taking: Reported on 02/13/2021) No current facility-administered medications for this visit. ALLERGIES: ALLERGIES Allergen Reactions - Keflex [Cephalexin] Hives - Latex Intolerance VITALS: BP 132/84 Pulse 88 Temp 36.9 ?C (98.4 ?F) (Tympanic) Resp 18 Wt 93.4 kg (205 lb 12.8 oz) SpO2 97% BMI 32.30 kg/m? PHYSICAL EXAM: GEN: mildly ill appearing HEENT: PERRL, EOMI, conjunctiva clear Ears: canals clear. TMs without erythema, bulge, or effusion Sinuses: pressure over sinuses Throat: moist mucous membranes, mild erythema, no exudate, hoarse voice Neck: supple, enlarged thyroid, lymphadenopathy HEART: regular rate and rhythm, no murmurs LUNGS: clear to auscultation, no wheezes or crackles, no increased WOB ASSESSMENT/PLAN: 1. URI, acute - ICD9: 465.9, ICD10: J06.9 - suspect viral URI, unlikely but differential includes COVID-19. - Discussed supportive care treatment with home isolation, rest, cold medicine, and inhaler. She does not feel she is bad enough to warrant a steroid. - Red flags to seek further treatment include chest pain, shortness of breath, and lethargy; in the ER if severe. COVID-19 testing accepted. - 2019 CORONAVIRUS Jarett Reno MD [facility] Summary Purpose Family History No Family History Records Found Advance Directives No Advanced Directives Records Found Additional Source Comments INFORMATION SOURCE (unrecogn ized section and content) FOR RECORDS PERTAINING TO PATIENTS WHO ARE OR HAVE BEEN ENROLLED IN A CHEMICAL DEPENDENCY/SUBSTANCEABUSE PROGRAM, SOME INFORMATION MAY BE OMITTED. This clinical summary was aggregated from multiple sources. Caution should be exercised in using it in the provision of clinical care. This summary normalizes information from multiple sources, and as a consequence, information in this document may materially change the coding, format and clinical context of patient data. In addition, data may be omitted in some cases. CLINICAL DECISIONS SHOULD BE BASED ON THE PRIMARY CLINICAL RECORDS. [facility] [employer] [facility]. provides no warranty or guarantee of the accuracy or completeness of information in this document.
[2023-09-10 18:06] LABS: Anion Gap 5 (5-15); BUN 13 mg/dL (7-18); Calcium,Total 8.9 mg/dL (8.5-10.1); Chloride 113 mmol/L (98-107); Cholesterol 116 mg/dL (200); Creatinine, Serum 0.57 mg/dL (0.55-1.02); EST Glomerular Filtration Rate 116 mL/min (>60); Est Glom Filt Rate - Afr Amer 140 mL/min (>60); Free T3 3.3 pg/mL (2.18-3.98); Glucose 83 mg/dL (74-106); High Density Lipoprotein 46 mg/dL; Potassium 3.4 mmol/L (3.5-5.1); Sodium Level 144 mmol/L (136-145); T4 Free Direct 1.48 ng/dL (0.76-1.46); Thyroid Stim Hormone (TSH) 0.13 uIU/mL (0.358-3.74); Triglycerides 71 mg/dL; Very Low Density Lipoprotein 14 mg/dL (5-40)
== END | disposition home or self-care (01) ==
LOC: MFPLAB 16:40
PROVIDERS: PCP Family Medicine; Visit Provider Family Medicine
DX: E03.9 Hypothyroidism, unspecified (principal); I10 Essential (primary) hypertension
CPT/HCPCS: 36415; 80048; 80061; 84439; 84443; 84481

== ENCOUNTER 2024-02-23 07:32 | Day surgery (SDC) | payer OTHER, SELFPAY ==
[2024-02-23] VITALS (8 sets, daily range): BP systolic 103–129; BP diastolic 56–78; PULSE 68–103; RESP 16; TEMP 36.3–36.8; O2SAT 93–98; BMI 30.6
--- NOTE | 2024-02-23 | COLBX_PTH ---
PATIENT: BOAZ REYNAGA LOC: EN U#:[id number] AGE/SX: 58/F ROOM: RE02/23/[address]: Dr. Jazmine Contreras MD : 1965 BED: DIS: 02/23/2024 SPEC #: [id number] RECD: 02/23/24 13:47 STATUS: PEARL RERicki #: [id number] SUNSHINE: 02/23/24 00:[address]: Jazmine Contreras DEPT: SURGICAL PATHOLOGY RECD BY: Reyna Perla ENTERED: 02/23/24 14:20 SP TYPE: COLON BX OTHR DR: Dr. Hu Hairston MD Tissues: A - Sigmoid colon biopsy B - Rectum, NOS Procedures: Surgery Specimen Level IV HEADER OPERATION: Colonoscopy with biopsy PRE-OP DIAGNOSIS: History of colonic polyps TISSUE SUBMITTED: A- Sigmoid polyp, B- Rectum polyp MICROSCOPIC DIAGNOSIS A. Sigmoid polyp, biopsy: Fragments of colonic mucosa, no pathologic diagnosis. B. Rectum polyp, biopsy: Fragments of hyperplastic polyp. [facility] 02/24/2024 MICROSCOPIC DESCRIPTION Slides are reviewed. GROSS DESCRIPTION A. Received in fixative is one container labeled with the patient's name and designated Sigmoid polyp. The specimen consists of two irregular fragments of light rader soft tissue that in aggregate measure 0.5 x 0.3 x 0.1 cm. The specimen is totally submitted in one cassette. B. Received in fixative is one container labeled with the patient's name and designated Rectum polyp. The specimen consists of two irregular fragments of light rader soft tissue that in aggregate measure 0.6 x 0.5 x 0.1 cm. The specimen is totally submitted in one cassette. [facility] 02/23/2024 TC:1 [facility]:[id number]
--- NOTE | 2024-02-23 07:59 | H&P.OPEN ---
[facility] - General General Date of Service: 02/23/24 HPI Narrative BOAZ REYNAGA, is a 58 F who presents for screening colonoscopy due to history of colon polyps, hemorrhoids. Patient last colonoscopy was 01/2019 patient had 2 polyps that time tubular adenoma and hyperplastic. Patient's maternal grandmother had colon cancer. Patient still has occasional bright red blood per rectum which has been chronic for her small amount. Patient otherwise denies any chronic abdominal pain/nausea/vomiting. [facility] Medical History (Updated 02/23/24 @ 08:[address] Jazmine Contreras MD) Alcohol use Abscessed tooth Post-menopausal Depression Anemia High cholesterol Easy bruising Gastric reflux Smoker Shortness of breath on exertion Hx of colonic polyps Hypertension history excision abdominal wall tumor Blood in stool Acid reflux Laryngeal mass History of abnormal cervical Pap smear History Gallbladder Removal History of benign neoplasm of stomach History of bloody stools Anxiety Hyperthyroidism Scoliosis Asthma Tobacco abuse Hypothyroid COPD (chronic obstructive pulmonary disease) 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 Home Medications ?Medication ?Instructions ?Recorded ?Last Taken ?Type amlodipine 5 mg tablet 5 mg PO DAILY #90 tabs 05/07/22 Unknown Rx aspirin 81 mg capsule 81 mg PO DAILY #90 caps 05/07/22 Unknown Rx atorvastatin 10 mg tablet 10 mg PO QHS #90 tabs 05/07/22 Unknown Rx levothyroxine 150 mcg tablet 150 mcg PO DAILY #90 tabs 05/07/22 Unknown Rx albuterol sulfate 90 mcg/actuation 2 puff inhalation Q4H PRN PRN 02/17/24 Unknown History aerosol inhaler shortness of breath or wheezing Allergy/AdvReac Type Severity Reaction Status Date / Time cephalexin monohydrate (From Allergy Hives Verified 02/23/24 08:01 Keflex) latex Allergy Rash Verified 02/23/24 08:01 Penicillins (PCN) Allergy Hives Verified 02/23/24 08:01 Family History (Updated 12/16/23 @ 11:58 by Kary Dinero) Grandfather Kidney disease Heart disease Colon cancer Sister Lung cancer Seizures Mother Cancer Diabetes Daughter Hypertension Thyroid disorder Surgical History Hx of colonoscopy History of cholecystectomy History of delivery Social History Smoking Status: Current every day smoker tobacco type: cigarettes second hand exposure: Yes quit status: not considering quitting alcohol intake: never substance use type: does not use caffeine: Yes what type of physical activity do you participate in: none seatbelt use: always do you feel safe at home: Yes additional social history: Employed Self reliance single Past Medical/Surgical History Planned Operation Planned Operative Procedure(s): CSCOPE OA S.O.S: No Previous Hospitalizations/Surgeries HX Hospitalizations: No HX of Surgeries: 2 C SECTIONS TUMOR REMOVED FROM RT SIDE OF STOMACH WALL-2003 GALLBLADDER,direct laryngoscopy 2018 Any Problems With Anesthesia: No You/Your Family Experience Fever (Hyperthermia) With Anes: No Cholinesterase deficiency: No Cardiovascular Hx Chest Pain within Last 2 months: No Hx of Irregular Heartbeat and/or Afib: No Hx Heart Attack: No Hx Congestive Heart Failure: No Hx Rheumatic Fever: No Hx Hypertension: Yes (CONTROLLED WITH MED) Hx Internal Defibrillator: No Hx Pacemaker: No Hx Cardiac Catheterization: No Hx Cardiac Surgery/Stents/Etc.: No Hx Stress Test: Yes (over 5 yrs ago) Hx Pain in Legs when Walking/Leg Cramps: Yes Respiratory Chronic Cough: Yes HX of Shortness of Breath: Yes (SOB WITH 2 FLIGHTS OF STAIRS) Hoarseness: Yes Hx Chronic Obstructive Pulmonary Disease (COPD): No Hx Asthma: Yes (PRN INHALER) Hx Emphysema: No Hx Sleep Apnea: No CPAP: No BIPAP: No Hx Respiratory Tract Infection/Cold (presently): No Do You Snore Loudly (louder than talking or can be heard): No Do You Often Feel Tired/ Fatigued/ Sleepy Dring Daytime?: Yes Has Anyone Observed You Stop Breathing During Sleep?: No Result (for STOP score): Positive Hx Smoking: Yes (QUIT 1 yr ago/1.5 PPD FOR 38 YRS) Smoking Status: Current every day smoker Gastrointestinal Controlled With Meds: Yes (.) Hx Gastrointestinal Disorders: No Hx Gastrointestinal Bleed: No Hx Ulcer: No Hx Hiatal Hernia: No Difficulty Chewing/Swallowing: No (.) Special diet followed at home: No Hx Unplanned Weight Loss of 20#: No HX Unplanned Weight Gain of 20#: No Neurological Hx Seizures: No HX Syncope/Blackout Spells/Unconsciousness: No (.) Hx Transient Ischemic Attacks (TIA): No Hx Multiple Sclerosis: No Hx Parkinson's Disease: No Hx Head/Neck Injury: No Hx Headaches: No (.) Hx Back Injury/Pain: No (scoliosis) Recent Onset of Speech Difficulty: No Restless Legs: Yes Does patient have nerve stimulator: No Blood Disorder Hx Leukemia: No Bleeding Tendencies: Yes (BRUISES EASILY) Hx Deep Vein Thrombosis: No Hx High Cholesterol: Yes (NO MED) Blood Transmitted Disease: No Hx Hepatitis: No Hx Cirrhosis: No Hx Anemia: No (.) Hx Blood Disorders: No Reproduction : No Is Patient Lactating: No Hx Hysterectomy: No Hx Tubal Ligation: No Are You Post Menopause: Yes Genitourinary Hx Renal Disease: No Hx Dialysis: No Musculoskeletal Hx Arthritis: No Hx Rheumatoid Arthritis: No Hx Gout: No Recent Onset of an Orthopedic Problem: No Endocrine Hx Diabetes: No Insulin: No Thyroid Disease: Yes (ON MED) Hx Steroid Therapy: No Psycho/Social Hx Substance Use: No Hx Alcohol Use: Yes (5 YRS SOBER) Hx Anxiety: No Hx Depression: Yes (NO MEDS CURRENTLY) Mental Illness: No Hx Dementia: No Miscellaneous Hx Cancer: No Recent Exposure to Contagious Disease: No Hx of C-Diff: No Any Loose Teeth: No Allergies cephalexin monohydrate (From Keflex) Allergy (Verified 02/23/24 08:01) Hives latex Allergy (Verified 02/23/24 08:01) Rash Penicillins (PCN) Allergy (Verified 02/23/24 08:01) Hives Maternal: Family History (Updated 12/16/23 @ 11:58 by Kary Dinero) Grandfather Kidney disease Heart disease Colon cancer Sister Lung cancer Seizures Mother Cancer Diabetes Daughter Hypertension Thyroid disorder Cancer (Mother had lung cancer) Discharge Is Pt Admitted From a [facility]sp, or a Residential: No After D/C, Where Do you Plan to Go: Return Home Physical Exam Const alert, oriented x3 and no apparent distress HEENT normocephalic and head/scalp atraumatic Resp normal respiratory effort Cardio regular rate GI soft to palpation and non-tender; Negative for non-distended Palpation: Negative for guarding Extremity no clubbing, cyanosis or edema Skin no rashes or lesions noted Neuro CN's II-XII intact bilaterally Psych mental status grossly normal Assessment & Plan Assessment/Plan (1) Hx of colonic polyps: Surgery Risks - Colonoscopy I discussed with the patient the risks of the procedure: Yes Risks Include but are not Limited To: Risks include but are not limited to: Bleeding, perforation requiring further surgery, inability to complete colonoscopy requiring barium enema.
[2024-02-23] MEDS: Lactated Ringers 1,000 ML 15 ML IV (08:02)
--- NOTE | 2024-02-23 08:14 | PCM.PRE.AN2 ---
ASA Classification* ASA Classification ASA Classification: 3 Assessment & Plan Anesthesia* Anesthesia Assessment Anesthesia Assessment: Discussed sedation and/or anesthesia options, risks, benefits, and alternatives with patient/parents/legal guardian/POA. Questions invited. The patient/parents/legal guardian/POA seems to understand and agrees to proceed with anesthesia plan. Reviewed the physical assessment, medical history, allergy history and patient home medications list prior to surgery/procedure/anesthetic and documented any changes. Performed airway and anesthesia risk assessments. Procedural Plan Procedural Plan:: Proceed w/ Anesthesia plan Anesthesia Type Anesthesia Type: MAC History Source History Obtained from:: Patient and Chart Anesthesia Focused Assessment* Temperature: 97.8 F Pulse Rate: 103 Blood Pressure: 129/78 Respiratory Rate: 16 Pulse Ox: 98 Oxygen Delivery Method: Room Air Airway Assessment Mouth opens: >3 cm Mallampati Score: I Teeth Condition: Intact (Abscessed tooth has been seen by dentist. Patient is on antibiotics. Plan is to drain it again in the month. The tooth is currently without pain and is does not move.) Neck Range of motion (ROM): Full ROM Focused Labs Anesthesia Preop lab: CBC WBC 10.3 K/mm3 (4.4-11.0) 11/14/22 15:53 RBC 4.55 M/mm3 (4.2-5.4) 11/14/22 15:53 Hgb 13.9 g/dL (12.0-15.0) 11/14/22 15:53 Hct 42.5 % (37-47) 11/14/22 15:53 Plt Count 176 K/mm3 (150-450) 11/14/22 15:53 CHEMISTRY Potassium 3.4 mmol/L (3.5-5.1) L 09/10/23 16:40 Sodium 144 mmol/L (136-145) 09/10/23 16:40 BUN 13 mg/dL (7-18) 09/10/23 16:40 Creatinine 0.57 mg/dL (0.55-1.02) 09/10/23 16:40 Glucose 83 mg/dL (74-106) 09/10/23 16:40 TSH 0.13 uIU/mL (0.358-3.74) L 09/10/23 16:40 COAG PT 12.3 SECONDS (11.9-14.4) 02/19/14 21:20 Pre-Assessment Diagnosis/Proposed Procedure Planned Operative Procedure(s): CSCOPE OA Anesthesia History Anesthesia History - identity management consultant: Anesthesia History - identity management consultant Hx Hospitalization No 02/23/24 08:01 Any Problems With Anesthesia No 02/23/24 08:01 Cholinesterase deficiency No 02/23/24 08:01 You/Your Family Experience No 02/23/24 08:01 fever (hyperthermia) with Relationship Recent Exposure to Contagious No 02/23/24 08:02 Disease Does patient have nerve No 02/23/24 08:01 stimulator Patient instructed to have device shut off --Does patient have Pacemaker No 02/23/24 08:02 or ICD? When Was Last Pacemaker Check QUESTION #4 FULL TEXT: You/Your Family Experience fever (hyperthermia) with Anesthesia Last Oral Intake Last Oral intake: Last Oral Intake NPO since 04:00 02/23/24 08:02 Meds taken in AM with sips of Yes 02/23/24 08:02 water? Meds patient instructed to amlodipine, levothyroxine 02/23/24 08:02 take am of surgery PONV PONV - identity management consultant: PONV - identity management consultant Female Yes 02/17/24 13:33 HX of Motion Sickness No 02/17/24 13:33 HX of N/V After Surgery No 02/17/24 13:33 Non-Smoker No 02/17/24 13:33 Duration of Surgery greater No 02/17/24 13:33 than 60 minutes Number of Risk Factors 1 02/17/24 13:33 PONV Score Low Risk 02/17/24 13:33 Height & Weight Height & Weight: Anesthesia: Height & Weight Height 5 ft 6 in 02/23/24 08:02 Weight: 86 kg 02/23/24 08:02 Body Mass Index (BMI) 30.6 02/23/24 08:02 Respiratory Assessment Respiratory Assessment - identity management consultant: Respiratory Tract Infection Hx - identity management consultant Hx Respiratory Tract Infection No 02/23/24 08:01 STOP Sleep Apnea STOP Sleep Apnea - identity management consultant: STOP Sleep Apnea - identity management consultant Hx Hypertension Yes: CONTROLLED WITH MED 02/23/24 08:01 Hx Sleep Apnea No 02/23/24 08:01 CPAP No 02/23/24 08:01 BIPAP No 02/23/24 08:01 Do you snore loudly (louder No 02/23/24 08:01 than talking or can be heard Do you often feel tired/ Yes 02/23/24 08:01 fatigued/ sleepy during daytime? Has anyone observed you stop No 02/23/24 08:01 breathing during sleep? STOP Results Positive 02/23/24 08:01 QUESTION #5 FULL TEXT : Do you snore loudly (louder than talking or can be heard through closed doors)? 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 Specify any problems Hx of Preganancy in last 3 No 02/17/24 13:33 Months Nurse Filling Out Transfusion DSCHRIBER 02/17/24 13:33 & Questions: Date: 02/17/24 02/17/24 13:33 Time: 13:34 02/17/24 13:33 Patient unable to answer at this time (ie. confused, unrespo /Reproduction History /Reproductive History - identity management consultant: /Reproductive Hx- identity management consultant Hx Now No 02/23/24 08:01 Gestational Age (in weeks): EDC: Hx Hx Para Hx Section SAB No 02/17/24 13:33 Active Medications Active Medications: Current Medications Generic Name Dose Route Start Last Admin Trade Name Freq PRN Reason Stop Dose Admin Lactated Ringer's 1,000 mls @ 15 mls/hr 02/23/24 07:45 02/23/24 08:02 IV 15 mls/hr .Q48H THANIA Administration PFSH Medical History Alcohol use Abscessed tooth Post-menopausal Depression Anemia High cholesterol Easy bruising Gastric reflux Smoker Shortness of breath on exertion Hx of colonic polyps Hypertension history excision abdominal wall tumor Blood in stool Acid reflux Laryngeal mass History of abnormal cervical Pap smear History Gallbladder Removal History of benign neoplasm of stomach History of bloody stools Anxiety Hyperthyroidism Scoliosis Asthma Tobacco abuse Hypothyroid COPD (chronic obstructive pulmonary disease) 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 Home Medications ?Medication ?Instructions ?Recorded ?Last Taken ?Type amlodipine 5 mg tablet 5 mg PO DAILY #90 tabs 05/07/22 02/22/24 Rx aspirin 81 mg capsule 81 mg PO DAILY #90 caps 05/07/22 02/22/24 Rx atorvastatin 10 mg tablet 10 mg PO QHS #90 tabs 05/07/22 02/22/24 Rx levothyroxine 150 mcg tablet 150 mcg PO DAILY #90 tabs 05/07/22 02/22/24 Rx albuterol sulfate 90 mcg/actuation 2 puff inhalation Q4H PRN PRN 02/17/24 02/22/24 History aerosol inhaler shortness of breath or wheezing Allergy/AdvReac Type Severity Reaction Status Date / Time cephalexin monohydrate (From Allergy Hives Verified 02/23/24 08:01 Keflex) latex Allergy Rash Verified 02/23/24 08:01 Penicillins (PCN) Allergy Hives Verified 02/23/24 08:01 Family History Grandfather Kidney disease Heart disease Colon cancer Sister Lung cancer Seizures Mother Cancer Diabetes Daughter Hypertension Thyroid disorder Surgical History Hx of colonoscopy History of cholecystectomy History of delivery Social History Smoking Status: Current every day smoker tobacco type: cigarettes second hand exposure: Yes quit status: not considering quitting alcohol intake: never substance use type: does not use caffeine: Yes what type of physical activity do you participate in: none seatbelt use: always do you feel safe at home: Yes additional social history: Employed Self reliance single Review of Systems (Anesthesia) ROS Narrative System reviewed and no additional complaints, except as documented.
--- NOTE | 2024-02-23 09:54 | PCM.POST.ANE ---
Anesthesia: Postop Eval I Current Vital Signs Temperature: 98.3 F Pulse Rate: 83 Blood Pressure: 105/56 Respiratory Rate: 16 Pulse Ox: 96 Oxygen Delivery Method: Room Air Assessment Airway patent: Yes Spontaneous unlabored respirations: Yes Mental status: Awake and Calm nausea: No Vomiting: No Anesthesia Complication: No Fluid Hydration Crystalloid volume administer (ml): 600 Total IV fluid infused: 600 Progress Note Anesthesia document: Postop Eval 1 completed: Yes
--- NOTE | 2024-02-23 09:54 | OP.CCLET_ITS ---
02/23/2024 Hu Hairston MD [address] [place] [address] Re : Colonoscopy procedure for Cindi Goldstein Dear Dr. Hairston This procedure was performed on Friday, February 23, 2024. My impressions and recommendations are as follows: Impressions : - Two less than 5 mm polyps in the rectum and in the sigmoid colon, removed with a cold biopsy forceps. Resected and retrieved. - Diverticulosis in the sigmoid colon. - The examination was otherwise normal on direct and retroflexion views. - Non-bleeding internal hemorrhoids. Recommendations : - Discharge patient to home. - Resume previous diet. - Continue present medications. - Await pathology results. - Repeat colonoscopy in 5 years for surveillance based on pathology results. My findings are described in the full procedure note, which is enclosed. If I can be of further assistance, please feel free to contact me at Doctor phone number(s): , Work: . Sincerely, MD Jazmine Urrutia MD 02/23/2024 9:53:33 AM This report has been signed electronically.
--- NOTE | 2024-02-23 09:54 | OP.COLON_ITS ---
Patient Name: Cindi Goldstein Procedure Date: 02/23/2024 9:12 AM Date of : 1965 Age: 58 Procedure: Colonoscopy Indications: High risk colon cancer surveillance: Personal history of colonic polyps Providers: Jazmine Contreras MD Medicines: Monitored Anesthesia Care Patient Profile: This is a 58 year old female. Last Colonoscopy: 5 years ago. Complications: No immediate complications. Procedure: Pre-Anesthesia Assessment: - Prior to the procedure, a History and Physical was performed, and patient medications and allergies were reviewed. The patient's tolerance of previous anesthesia was also reviewed. The risks and benefits of the procedure and the sedation options and risks were discussed with the patient. All questions were answered, and informed consent was obtained. Prior Anticoagulants: The patient has taken no anticoagulant or antiplatelet agents. ASA Grade Assessment: Per anesthesia. After reviewing the risks and benefits, the patient was deemed in satisfactory condition to undergo the procedure. After I obtained informed consent, the scope was passed under direct vision. Throughout the procedure, the patient's blood pressure, pulse, and oxygen saturations were monitored continuously. The colonoscope was introduced through the anus and advanced to the cecum, identified by the appendiceal orifice, ileocecal valve and palpation. The colonoscopy was performed without difficulty. The patient tolerated the procedure well. The quality of the bowel preparation was good. Scope In: 9:23:22 AM Scope Withdrawal Time 0 hours 17 minutes 51 seconds Scope Out: 9:46:15 AM Total Procedure Duration Time 0 hours 22 minutes 53 seconds Findings: Two sessile polyps were found in the rectum and sigmoid colon. The polyps were less than 5 mm in size. These polyps were removed with a cold biopsy forceps. Resection and retrieval were complete. A single small-mouthed diverticulum was found in the sigmoid colon. The exam was otherwise without abnormality on direct and retroflexion views. Non-bleeding internal hemorrhoids were found. The hemorrhoids were Grade I (internal hemorrhoids that do not prolapse). Impression: - Two less than 5 mm polyps in the rectum and in the sigmoid colon, removed with a cold biopsy forceps. Resected and retrieved. - Diverticulosis in the sigmoid colon. - The examination was otherwise normal on direct and retroflexion views. - Non-bleeding internal hemorrhoids. Recommendation: - Discharge patient to home. - Resume previous diet. - Continue present medications. - Await pathology results. - Repeat colonoscopy in 5 years for surveillance based on pathology results. Procedure Code(s): --- Professional --- 27571, PT, Colonoscopy, flexible; with biopsy, single or multiple Diagnosis Code(s): --- Professional --- Z86.010, Personal history of colonic polyps D12.8, Benign neoplasm of rectum D12.5, Benign neoplasm of sigmoid colon K57.30, Diverticulosis of large intestine without perforation or abscess without bleeding CPT copyright 2021 [employer]. All rights reserved. The codes documented in this report are preliminary and upon supervisor unloading review may be revised to meet current compliance requirements. MD Jazmine Urrutia MD 02/23/2024 9:53:33 AM This report has been signed electronically. Number of Addenda: 0 Note Initiated On: 02/23/2024 9:12 AM
--- NOTE | 2024-02-23 15:12 | PCM.POSTANE2 ---
Anesthesia Postop Eval I Sum Postop Eval Completion status Anesthesia document: Postop Eval 1 completed: Yes Anesthesia Postop Eval I Summary Anesthesia Postop Eval I Summary: Anesthesia Postop Eval I: Assessment Summary Airway patent Yes 02/23/24 09:57 [email or web address] Spontaneous unlabored Yes 02/23/24 09:57 [email or web address] respirations Mental status Awake,Calm 02/23/24 09:57 [email or web address] nausea No 02/23/24 09:57 [email or web address] Vomiting No 02/23/24 09:57 [email or web address] Anesthesia Postop Eval I: Fluid Summary Crystalloid volume administer 600 02/23/24 09:57 [email or web address] (ml) Colloids volume administered ( ml) Blood Product volume administered (ml) Total IV fluid infused 600 02/23/24 09:57 [email or web address] Anesthesia Postop Eval I: Summary Notes Anesthesia Complication No 02/23/24 09:57 [email or web address] Anesthesia Complication Comment: Post-operative progress note Anesthesia: Postop Eval II Evaluation Mental status: Awake and Calm Pain Level: 0 nausea: No Vomiting: No Complications Anesthesia Complication: No
== END 2024-02-23 10:48 | disposition home or self-care (01) ==
LOC: EN 07:33 → AC 07:34
PROVIDERS: PCP Family Medicine; Referring Provider Family Medicine; Visit Provider Surgery
PROC: 0DJD8ZZ Inspection of Lower Intestinal Tract, Via Natural or Artificial Opening Endoscopic (ICD-10-PCS; CPT 45378; principal; 2024-02-23 09:25)
DX: Z12.11 Encounter for screening for malignant neoplasm of colon (principal); J44.9 Chronic obstructive pulmonary disease, unspecified; K57.30 Diverticulosis of large intestine without perforation or abscess without bleeding; I10 Essential (primary) hypertension; E78.00 Pure hypercholesterolemia, unspecified; Z80.0 Family history of malignant neoplasm of digestive organs; K62.1 Rectal polyp; F17.210 Nicotine dependence, cigarettes, uncomplicated; Z90.49 Acquired absence of other specified parts of digestive tract; Z86.010 Personal history of colon polyps; K64.0 First degree hemorrhoids; K21.9 Gastro-esophageal reflux disease without esophagitis; K63.5 Polyp of colon; Z79.899 Other long term (current) drug therapy; Z79.82 Long term (current) use of aspirin; Z79.890 Hormone replacement therapy; E03.9 Hypothyroidism, unspecified; Z87.19 Personal history of other diseases of the digestive system; E05.90 Thyrotoxicosis, unspecified without thyrotoxic crisis or storm
CPT/HCPCS: 45380; 88305; J7120; J2405

== ENCOUNTER → 2024-03-10 | Outpatient (CLI) | payer OTHER, SELFPAY ==
[2024-03-10 15:42] LABS: AST(SGOT) 15 U/L (15-37); Alanine Aminotransfer ALT/SGPT 23 U/L (13-56); Albumin, Serum 3.4 g/dL (3.2-5.0); Alkaline Phosphatase 154 U/L (45-117); Anion Gap 5 (5-15); BUN 16 mg/dL (7-18); BUN/Creat Ratio 27.5 RATIO (10-20); Calcium,Total 8.8 mg/dL (8.5-10.1); Chloride 109 mmol/L (98-107); Cholesterol 133 mg/dL (200); Creatinine, Serum 0.58 mg/dL (0.55-1.02); EST Glomerular Filtration Rate 112 mL/min (>60); Est Glom Filt Rate - Afr Amer 136 mL/min (>60); Free T3 3.2 pg/mL (2.18-3.98); Globulin 3.5 g/dL (2.2-4.2); Glucose 104 mg/dL (74-106); High Density Lipoprotein 60 mg/dL; Potassium 3.9 mmol/L (3.5-5.1); Protein, Total 6.9 g/dL (6.4-8.2); Sodium Level 139 mmol/L (136-145); T4 Free Direct 1.44 ng/dL (0.76-1.46); Triglycerides 60 mg/dL; Very Low Density Lipoprotein 12 mg/dL (5-40)
== END | disposition home or self-care (01) ==
LOC: MFPLAB 11:34
PROVIDERS: PCP Family Medicine; Visit Provider Family Medicine
DX: E03.9 Hypothyroidism, unspecified (principal); I10 Essential (primary) hypertension
CPT/HCPCS: 36415; 80053; 80061; 84439; 84443; 84481

== ENCOUNTER 2024-07-15 09:34 | Emergency (ER) | payer OTHER, SELFPAY ==
[2024-07-15 09:35] VITALS: BP 142/69; PULSE 77; RESP 22; TEMP 36.3; O2SAT 99; BMI 35.9
--- NOTE | 2024-07-15 10:12 | EKG12_ITS ---
Test Reason : SOB Blood Pressure : */* mmHG Vent. Rate : 76 BPM Atrial Rate : 76 BPM P-R Int : 180 ms QRS Dur : 80 ms QT Int : 358 ms P-R-T Axes : 32 46 47 degrees QTcB Int : 402 ms Normal sinus rhythm Normal ECG Confirmed by ROME GIBSON, SOHAIL ([id number]), desk editor BETHEL FU ([id number]) on 07/17/2024 8:10:57 AM Referred By: SAMANTHA Confirmed By: SOHAIL PETER MD
--- NOTE | 2024-07-15 10:13 | EX.ED.DYSGE1 ---
HPI History of Present Illness Chief Complaint: Shortness of Breath Narrative Narrative: Patient is a 58-year-old female who is presenting to the ER today with chief complaint of shortness of breath. Patient was diagnosed with pneumonia approxi-2 week ago. Patient was initially placed on doxycycline for 10 days which did not help her symptoms. Patient has a history of emphysema and COPD. Patient says that she quit smoking 1 week ago. Doxycycline did not help, she went back to an urgent care, and then was placed on a 4-day course of prednisone along with albuterol inhaler treatment. Patient states inhaler is helping somewhat, the steroids did help minimally. Patient has minimal chest tightness. Patient has been consistently short of breath and coughing for the last 2 weeks. No recent traveling. Patient wears no oxygen during the day or nighttime. Patient has no collateral specialist. Patient does have a PCP. No abdominal pain nausea vomiting. No acute complaints. Patient is in minimal respiratory distress, slight increase in respiratory rate, slightly hyperventilating as well. [facility] Medical History Alcohol use Abscessed tooth Post-menopausal Depression Anemia High cholesterol Easy bruising Gastric reflux Smoker Shortness of breath on exertion Hx of colonic polyps Hypertension history excision abdominal wall tumor Blood in stool Acid reflux Laryngeal mass History of abnormal cervical Pap smear History Gallbladder Removal History of benign neoplasm of stomach History of bloody stools Anxiety Hyperthyroidism Scoliosis Asthma Tobacco abuse Hypothyroid COPD (chronic obstructive pulmonary disease) 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 Home Medications ?Medication ?Instructions ?Recorded ?Last Taken ?Type amlodipine 5 mg tablet 5 mg PO DAILY #90 tabs 05/07/22 02/22/24 Rx aspirin 81 mg capsule 81 mg PO DAILY #90 caps 05/07/22 02/22/24 Rx atorvastatin 10 mg tablet 10 mg PO QHS #90 tabs 05/07/22 02/22/24 Rx levothyroxine 150 mcg tablet 150 mcg PO DAILY #90 tabs 05/07/22 02/22/24 Rx albuterol sulfate 90 mcg/actuation 2 puff inhalation Q4H PRN PRN 02/17/24 02/22/24 History aerosol inhaler shortness of breath or wheezing albuterol sulfate 90 mcg/actuation 2 puff inhalation Q4H PRN PRN 07/15/24 Unknown Rx aerosol inhaler (Ventolin HFA) Wheezing ##1 doxycycline hyclate 100 mg tablet 100 mg PO BID 07/15/24 Unknown History methylprednisolone 4 mg tablets in 4 mg PO UD ##1 07/15/24 Unknown Rx a dose pack prednisone 10 mg tablet 40 mg PO DAILY 07/15/24 Unknown History Allergy/AdvReac Type Severity Reaction Status Date / Time cephalexin monohydrate (From Allergy Hives Verified 07/15/24 09:35 Keflex) latex Allergy Rash Verified 07/15/24 09:35 Penicillins (PCN) Allergy Hives Verified 07/15/24 09:35 Family History Grandfather Kidney disease Heart disease Colon cancer Sister Lung cancer Seizures Mother Cancer Diabetes Daughter Hypertension Thyroid disorder Surgical History Hx of colonoscopy History of cholecystectomy History of delivery Social History Smoking Status: Current every day smoker tobacco type: cigarettes second hand exposure: Yes quit status: not considering quitting alcohol intake: never substance use type: does not use caffeine: Yes what type of physical activity do you participate in: none seatbelt use: always do you feel safe at home: Yes additional social history: Employed Self reliance single ROS ROS ED ROS Narrative REVIEW OF SYSTEMS: Unless otherwise stated in this report the patient's positive and negative responses for review of systems for constitutional, eyes, ENT, cardiovascular, respiratory, gastrointestinal, neurological, , musculoskeletal, and integument systems and related systems to the presenting problem are either stated in the history of present illness or were not pertinent or were negative for the symptoms and/or complaints related to the presenting medical problem. EXAM Physical Exam Narrative Exam Narrative: Vital signs reviewed and patient is not hypoxic. Patient is placed on 2 L for patient comfort, she is not hypoxic General: The patient appears well and in no apparent distress. Patient is resting comfortably on cart. Not toxic, lethargic, or listless. Skin: Warm, dry, no pallor noted. There is no rash noted. Head: Normocephalic, atraumatic Eye: Normal conjunctiva, no drainage, EOMI. PERRL. Ears, Nose, Mouth, and Throat: oral mucosa is moist. Nares patent. Mouth without vesicles. Cardiovascular: Regular Rate and Rhythm, no murmurs, gallops, or rubs Respiratory: Patient is in no distress Dieck, no accessory muscle use, lungs are decreased breath sounds bilateral, faint wheezing bilateral, equal breath sounds bilateral, trachea midline rhonchi crackles or rales. Back: non-tender, no CVA tenderness bilaterally to percussion. NO CTLS midline or paraspinal tenderness to palpation. GI: Soft, no tenderness to palpation, no masses appreciated. No rebound, guarding, or rigidity noted. Musculoskeletal: The patient has full range of motion of all extremities and joints with no difficulty. Patient has no motor, no sensory deficits. No pitting edema. Neurological: A&O x4, normal speech, no focal neurological deficits. Psychiatric: Cooperative Const Vital Signs: 07/15/24 11:45 07/15/24 13:12 Pulse Rate 80 79 Respiratory Rate 22 H 20 H Blood Pressure 134/72 H 127/103 H Blood Pressure Mean 92 111 Pulse Ox 99 98 Oxygen Delivery Method Nasal Cannula Nasal Cannula Oxygen Flow Rate (L/min) 2 2 MDM MDM MDM Narrative Medical decision making narrative: Patient chest x-ray shows no acute cardiopulmonary disease, no infiltrate, no effusion. Patient was given 2 DuoNeb breathing treatments, along with albuterol. 10-minute discussion was had with patient on admission to the hospital versus going home with symptomatic treatment at home. We have come to the conclusion that we will place patient on Medrol Dosepak, she was just on a 4-day burst last week, prior to this has been 6 months to a year before she was on steroids again. Patient does have inhalers at home and she knows to use these every 4 hours for the next 7 to 10 days. Patient will follow-up with PCP and patient was also referred to collateral specialist who she does not have. Patient understands that she can come back if she continues to fail outpatient treatment. Patient would rather go home to be admitted to the hospital as well. Patient has not been hypoxic, she has had nasal cannula oxygen to help with comfort. No acute indication for additional antibiotics, patient agrees. Patient will call PCP and call pulmonology to establish appointment on Wednesday. Lab Data Attestation: I reviewed the patient's lab results. Labs: Laboratory Results - last 24 hr 07/15/24 07/15/24 11:43 12:05 Troponin I High Sens 3 POC Glucose 109 H Radiography Chest X-Ray - ED: 2 View and Read by ED Physician (Chest x-ray shows no acute cardiopulmonary disease, no infiltrate, no effusion.) Diagnostic Testing: Clinical Impression(s) from Imaging Studies Chest X-Ray 07/15/24 10:37 IMPRESSION: No radiographic evidence of acute cardiopulmonary disease. Electronically Signed: Song Monterroso MD at 11:03 EST , Discharge Plan Triage Chief Complaint: Shortness of Breath ED Provider: Jamal Thompson Dx/Rx/DC Orders Clinical Impression: Dyspnea, Bronchitis, COPD (chronic obstructive pulmonary disease) Instructions: COPD: Coping with Fatigue, COPD Quit Smoking, COPD: Using Inhalers, ED Bronchitis, No Antibiotic (Adult) Prescriptions: New methylprednisolone 4 mg tablets,dose pack 4 mg PO UD Qty: 1 0RF albuterol sulfate [Ventolin HFA] 90 mcg/actuation HFA aerosol inhaler 2 puff inhalation Q4H PRN PRN (Reason: Wheezing) Qty: 1 0RF No Action amlodipine 5 mg tablet 5 mg PO DAILY Qty: 90 3RF aspirin 81 mg capsule 81 mg PO DAILY Qty: 90 3RF atorvastatin 10 mg tablet 10 mg PO QHS Qty: 90 3RF levothyroxine 150 mcg tablet 150 mcg PO DAILY Qty: 90 3RF albuterol sulfate 90 mcg/actuation HFA aerosol inhaler 2 puff inhalation Q4H PRN PRN (Reason: shortness of breath or wheezing) prednisone 10 mg tablet 40 mg PO DAILY doxycycline hyclate 100 mg tablet 100 mg PO BID Stand Alone Forms: ED Work / School Excuse Primary Care Provider: Hu Hairston Referrals: Moises Ruiz DO [Med Staff - Active Staff] - Hu Hairston MD [Primary Care Provider] - Activity Restrictions/Additional Instructions: Use your inhaler every 4 hours while awake for the next 5 to 7 days. You need to follow-up and establish a collateral specialist for acute on chronic emphysema and COPD care. Work note has been given. Increase fluids. Call Wednesday to follow-up with your PCP in the next 2 or 3 days for further evaluation. Start Medrol Dosepak today and finish it. No acute indication for antibiotic at this time. Print Language: German Disposition Disposition: Home, Self Care Discharge Date/Time: 07/15/24 13:39
[2024-07-15 10:23] VITALS: PULSE 71; RESP 20
[2024-07-15] MEDS: Ipratropium/Albuterol Sulfate 3 ML AMPUL.NEB INHALATION ×2 (10:23→10:58)
--- NOTE | 2024-07-15 10:37 | RAD_ITS ---
INDICATION: chest pain, sob EXAMINATION/TECHNIQUE: X-RAY - XR Chest 2 Views COMPARISON: Prior study dated: 12/09/2022 FINDINGS: LINES/DEVICES: None. LUNGS: No consolidation, edema or effusion. No pneumothorax. MEDIASTINUM AND CARDIOVASCULAR STRUCTURES: Cardiac silhouette not enlarged. Central airways and mediastinal contour are unremarkable. BONES AND SOFT TISSUES: Unremarkable. RAD/Chest PA and Lateral IMPRESSION: No radiographic evidence of acute cardiopulmonary disease. Electronically Signed: Song Monterroso MD at 11:03 EST ,
[2024-07-15 10:44] LABS: Absolute Neutrophil Count 6.3 X10^3/uL (2.0-7.7); Basophil# 0.05 X10^3/uL; Basophil% 0.5 % (0-1); Eosinophil# 0.21 X10^3/uL; Hematocrit 43.1 % (37-47); Hemoglobin 14.2 g/dL (12.0-15.0); Lymphocyte % 31.2 % (19-41); Mean Corp Hgb Conc 32.9 g/dL (32-36); Mean Corpuscular Hgb 30.7 pg (27.0-32.0); Mean Corpuscular Volume 93.1 fL (81-99); Mean Platelet Vol. 11.3 fl (6.2-12.0); Monocyte# 0.67 X10^3/uL; Monocyte% 6.3 % (0-10); NRBC Flagged by Analyzer 0 % (0-5); Neutrophil # 6.29 X10^3/uL (2.7-7.7); Neutrophil % 59.3 % (47-70); Platelet Count 179 K/mm3 (150-450); RBC Distribution Width CV 13.3 % (11.6-14.6); RBC Distribution Width SD 45.2 fl (35.1-43.9); Red Blood Count 4.63 M/mm3 (4.2-5.4); White Blood Count 10.6 K/mm3 (4.4-11.0)
[2024-07-15 10:50] VITALS: BP 129/55; PULSE 80; RESP 22; TEMP 36.8; O2SAT 98
[2024-07-15] MEDS: Albuterol 2.5 MG/3 ML VIAL.NEB. INHALATION (10:58)
[2024-07-15 11:04] LABS: Anion Gap 3 (5-15); BNP,B-Type NATRIURETIC PEPTIDE 32.2 pg/mL (0-100); BUN 21 mg/dL (7-18); BUN/Creat Ratio 38.7 RATIO (10-20); Calcium,Total 8.7 mg/dL (8.5-10.1); Chloride 108 mmol/L (98-107); Creatinine, Serum 0.54 mg/dL (0.55-1.02); EST Glomerular Filtration Rate 121 mL/min (>60); Est Glom Filt Rate - Afr Amer 147 mL/min (>60); Glucose 112 mg/dL (74-106); Potassium 3.6 mmol/L (3.5-5.1); Sodium Level 142 mmol/L (136-145); Troponin-I HS (w/2H Reflex) 3 pg/mL (3.0-54.0)
[2024-07-15 11:45] VITALS: BP 134/72; PULSE 80; RESP 22; O2SAT 99
[2024-07-15 12:06] LABS: Bedside Glucose 109 mg/dL (74-106)
[2024-07-15 12:31] LABS: Reflex Troponin-HS? (from REC) Y
[2024-07-15 12:52] LABS: Troponin-I HS 3 pg/mL (3.0-54.0)
[2024-07-15 13:12] VITALS: BP 127/103; PULSE 79; RESP 20; O2SAT 98
== END 2024-07-15 13:39 | disposition home or self-care (01) ==
PROVIDERS: Emergency Provider Emergency Medicine; PCP Family Medicine; Visit Provider Emergency Medicine
DX: J40 Bronchitis, not specified as acute or chronic (principal); J43.9 Emphysema, unspecified; I10 Essential (primary) hypertension; E78.00 Pure hypercholesterolemia, unspecified; E03.9 Hypothyroidism, unspecified; M41.9 Scoliosis, unspecified; Z88.1 Allergy status to other antibiotic agents; Z88.0 Allergy status to penicillin; Z87.01 Personal history of pneumonia (recurrent); Z79.82 Long term (current) use of aspirin; Z90.49 Acquired absence of other specified parts of digestive tract; Z79.899 Other long term (current) drug therapy; Z79.890 Hormone replacement therapy; Z87.891 Personal history of nicotine dependence
CPT/HCPCS: 71046; 80048; 82962; 83880; 84484; 85025; 93005; 94640; 99284; A4216

== ENCOUNTER 2024-07-25 10:35 | Emergency (ER) | payer OTHER, SELFPAY ==
[2024-07-25 10:35] VITALS: BP 134/78; PULSE 79; RESP 14; TEMP 36.2; O2SAT 98; BMI 34.6
--- NOTE | 2024-07-25 11:11 | EX.ED.VIS.EY ---
HPI History of Present Illness Chief Complaint: Eye Problem [facility] Medical History Alcohol use Abscessed tooth Post-menopausal Depression Anemia High cholesterol Easy bruising Gastric reflux Smoker Shortness of breath on exertion Hx of colonic polyps Hypertension history excision abdominal wall tumor Blood in stool Acid reflux Laryngeal mass History of abnormal cervical Pap smear History Gallbladder Removal History of benign neoplasm of stomach History of bloody stools Anxiety Hyperthyroidism Scoliosis Asthma Tobacco abuse Hypothyroid COPD (chronic obstructive pulmonary disease) 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 Home Medications ?Medication ?Instructions ?Recorded ?Last Taken ?Type amlodipine 5 mg tablet 5 mg PO DAILY #90 tabs 05/07/22 02/22/24 Rx aspirin 81 mg capsule 81 mg PO DAILY #90 caps 05/07/22 02/22/24 Rx atorvastatin 10 mg tablet 10 mg PO QHS #90 tabs 05/07/22 02/22/24 Rx levothyroxine 150 mcg tablet 150 mcg PO DAILY #90 tabs 05/07/22 02/22/24 Rx albuterol sulfate 90 mcg/actuation 2 puff inhalation Q4H PRN PRN 02/17/24 02/22/24 History aerosol inhaler shortness of breath or wheezing albuterol sulfate 90 mcg/actuation 2 puff inhalation Q4H PRN PRN 07/15/24 Unknown Rx aerosol inhaler (Ventolin HFA) Wheezing ##1 doxycycline hyclate 100 mg tablet 100 mg PO BID 07/15/24 Unknown History methylprednisolone 4 mg tablets in 4 mg PO UD ##1 07/15/24 Unknown Rx a dose pack prednisone 10 mg tablet 40 mg PO DAILY 07/15/24 Unknown History Allergy/AdvReac Type Severity Reaction Status Date / Time cephalexin monohydrate (From Allergy Hives Verified 07/25/24 10:37 Keflex) latex Allergy Rash Verified 07/25/24 10:37 Penicillins (PCN) Allergy Hives Verified 07/25/24 10:37 Family History Grandfather Kidney disease Heart disease Colon cancer Sister Lung cancer Seizures Mother Cancer Diabetes Daughter Hypertension Thyroid disorder Surgical History Hx of colonoscopy History of cholecystectomy History of delivery Social History Smoking Status: Current every day smoker tobacco type: cigarettes second hand exposure: Yes quit status: not considering quitting alcohol intake: never substance use type: does not use caffeine: Yes what type of physical activity do you participate in: none seatbelt use: always do you feel safe at home: Yes additional social 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 Physical Exam Const Vital Signs: 07/25/24 10:35 Temperature 97.1 F L Temperature Source Temporal Pulse Rate 79 Respiratory Rate 14 Blood Pressure 134/78 H Blood Pressure Mean 96 Pulse Ox 98 Oxygen Delivery Method Room Air MDM MDM MDM Narrative Medical decision making narrative: HISTORY OF PRESENT ILLNESS: 58-year-old female here with swelling, and redness to left eye. Endorses 5 days of left eye redness and swelling. No pain notes irritation and itchiness. No she went to urgent care received erythromycin ointment but has not found any relief. Denies headache, fever. Denies decreased visual acuity. Not wear contacts or glasses. REVIEW OF SYSTEMS: Pertinent positives: Eye redness, eye irritation Pertinent negatives: Headache, painful eye movement PHYSICAL EXAM: Nursing triage notes reviewed, Vital signs reviewed Constitutional: please see mdm HENT: MMM Eyes: Visual acuity 20/40 OD, 20/50 OS, fluorescein staining did not show any evidence of globe rupture or corneal abrasion. Pupils equal round and reactive to light, Extraocular muscles intact, no pain with extraocular muscle movements, no proptosis, there is erythema noted along the upper eyelid and lower eyelid. There is no sign of hordoelum dacryocystitis, stye Neck: No stridor, no JVD, full neck ROM Skin: Erythematous area noted over the upper and lower eyelids. MEDICAL DECISION MAKING: Chief Complaint: Eye redness, eye irritation External records reviewed: Reviewed prior visits Factors affecting care: COPD MDM Narrative: Patient was hemodynamically stable, afebrile and nontoxic-appearing. Exam consistent with likely conjunctivitis versus preseptal cellulitis. Will give ciprofloxacin drops and oral antibiotics to cover both eventualities. Fluorescein staining I considered the following differential diagnosis: Dacryocystitis, stye, conjunctivitis (Bacterial or viral), hordeolum, orbital cellulitis, preseptal cellulitis Exam most consistent with likely conjunctivitis versus preseptal cellulitis. The patient and/or family, caregivers express understanding. The patient and/or family, caregivers agrees with the plan. Shared decision making: I will have a discussion with the patient and or visitors regarding risk/benefits of further testing or admission. They will be made aware of of the risk/benefits inherent in this decision they will be given the opportunity to voice understanding. Total critical care time today provided was at least 0 minutes. This excludes separately billable procedures. Critical care time (if documented) is secondary to the patient having high probability of clinically significant/life threatening deterioration in the patient's condition which required my urgent intervention. Impression: 1. Conjunctivitis 2. Preseptal cellulitis Dispo: Discharge home This note was generated with [employer] dictation software. It may contain incorrect words, spelling, and punctuation that were not noted in review of the chart prior to signing. Discharge Plan Triage Chief Complaint: Eye Problem ED Provider: Emiliano Cisse Dx/Rx/DC Orders Prescriptions: No Action amlodipine 5 mg tablet 5 mg PO DAILY Qty: 90 3RF aspirin 81 mg capsule 81 mg PO DAILY Qty: 90 3RF atorvastatin 10 mg tablet 10 mg PO QHS Qty: 90 3RF levothyroxine 150 mcg tablet 150 mcg PO DAILY Qty: 90 3RF albuterol sulfate 90 mcg/actuation HFA aerosol inhaler 2 puff inhalation Q4H PRN PRN (Reason: shortness of breath or wheezing) prednisone 10 mg tablet 40 mg PO DAILY doxycycline hyclate 100 mg tablet 100 mg PO BID methylprednisolone 4 mg tablets,dose pack 4 mg PO UD Qty: 1 0RF albuterol sulfate [Ventolin HFA] 90 mcg/actuation HFA aerosol inhaler 2 puff inhalation Q4H PRN PRN (Reason: Wheezing) Qty: 1 0RF Primary Care Provider: Hu Hairston Referrals: Hu Hairston MD [Primary Care Provider] - Print Language: Tajik
[2024-07-25] MEDS: Tetracaine 0.5% Ophthalmic Bottle 1 DRP LEFT EYE (11:19)
[2024-07-25] MEDS: Fluorescein 1 MG STRIP 1 STRIP EACH EYE (11:19)
== END 2024-07-25 13:00 | disposition home or self-care (01) ==
PROVIDERS: Emergency Provider Emergency Medicine; PCP Family Medicine; Visit Provider Emergency Medicine
DX: L03.213 Periorbital cellulitis (principal); J44.9 Chronic obstructive pulmonary disease, unspecified; H10.9 Unspecified conjunctivitis; I10 Essential (primary) hypertension; E03.9 Hypothyroidism, unspecified; E78.00 Pure hypercholesterolemia, unspecified; M41.9 Scoliosis, unspecified; F17.210 Nicotine dependence, cigarettes, uncomplicated; Z79.82 Long term (current) use of aspirin; Z88.0 Allergy status to penicillin; Z88.1 Allergy status to other antibiotic agents; Z90.49 Acquired absence of other specified parts of digestive tract; Z79.899 Other long term (current) drug therapy; Z79.890 Hormone replacement therapy
CPT/HCPCS: 99283

== ENCOUNTER 2024-07-25 16:50 | Emergency (ER) | payer OTHER, SELFPAY ==
[2024-07-25 16:50] VITALS: BP 134/79; PULSE 91; RESP 16; TEMP 36.6; O2SAT 95; BMI 34.1
--- NOTE | 2024-07-25 21:29 | ED.RN ---
unable to update vitals due to busy triage
[2024-07-25 21:34] VITALS: BP 135/87; PULSE 108; RESP 17; O2SAT 95
--- NOTE | 2024-07-25 22:04 | CT_ITS ---
INDICATION: swelling left eye, eval orbital/postsept process EXAMINATION: CT FACIAL BONES - CT Maxillofacial W/ Contrast Injection TECHNIQUE: Helically acquired images were obtained of the facial bones. A radiation dose optimization technique was used for this scan. The protocol utilizes one or more of the following dose reduction techniques: automated exposure control, adjustment of mA and/or kV according to patient size,and/or use of iterative reconstruction technique. IV Contrast dosage and agent: None. RADIATION DOSAGE (If Supplied By Facility): CTDIvol = ( 29.38 ) mGy, DLP = ( 591.53 ) mGycm COMPARISON: FINDINGS: SOFT TISSUES: Left periorbital and facial subcutaneous swelling. No discrete fluid collections. VISUALIZED PARANASAL SINUSES: Clear. VISUALIZED MASTOID AIR CELLS: Clear. FACIAL BONES, MANDIBLE AND TMJs: No displaced facial bone fracture. No lytic or blastic abnormality. VISUALIZED DENTITION: No periodontal osseous erosion. ORBITAL CONTENTS: Both globes, extraocular muscles and retrobulbar fat appear unremarkable. CT/Sinus/Facial Bone WITH Contras IMPRESSION: Left periorbital and facial subcutaneous swelling. Electronically Signed: Shahid Hunt DO at 0:20 EST Reading Location ID and State: [facility] / [place] Tel [phone], Service support ,
--- NOTE | 2024-07-25 22:07 | EX.ED.VIS.EY ---
HPI History of Present Illness Chief Complaint: Eye Problem Informant: patient and other (ophthalmology) Onset/Context/Timing Location: Left Eye Onset: Days (2-3) Context: Gradual Onset Timing: Continuous Worsened by: nothing Relieved by: nothing including abx topical Associated Symptoms Associated Symptoms - Eyes: Eyelid swelling, Itching and Redness; Negative for Pain or Photophobia Narrative Narrative: 58-year-old female to 3 days gradual onset swelling redness itching left eye. No pain. No vision changes, uses eyeglasses. No fevers, chills, systemic symptoms. She was seen here this morning for this, thought to have conjunctivitis and she has no pain, but given the degree of symptoms was put on oral and a different topical antibiotic anyway and referred to ophthalmology. She saw Dr. Krishna today, who agrees with all this but sent her back here to have a CT scan to rule out orbital cellulitis/postseptal involvement given the amount of swelling that she has. She has no new symptoms. She was doing erythromycin topically prior to being seen here this morning and it was not helping which is what prompted her visit here in the first place. She is not a diabetic. She denies having anything in her eye or an exposure that would have been an obvious etiology of this. She denies any involvement in her right eye. She still has no pain. [facility] Medical History Alcohol use Abscessed tooth Post-menopausal Depression Anemia High cholesterol Easy bruising Gastric reflux Smoker Shortness of breath on exertion Hx of colonic polyps Hypertension history excision abdominal wall tumor Blood in stool Acid reflux Laryngeal mass History of abnormal cervical Pap smear History Gallbladder Removal History of benign neoplasm of stomach History of bloody stools Anxiety Hyperthyroidism Scoliosis Asthma Tobacco abuse Hypothyroid COPD (chronic obstructive pulmonary disease) 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 Home Medications ?Medication ?Instructions ?Recorded ?Last Taken ?Type amlodipine 5 mg tablet 5 mg PO DAILY #90 tabs 05/07/22 02/22/24 Rx aspirin 81 mg capsule 81 mg PO DAILY #90 caps 05/07/22 02/22/24 Rx atorvastatin 10 mg tablet 10 mg PO QHS #90 tabs 05/07/22 02/22/24 Rx levothyroxine 150 mcg tablet 150 mcg PO DAILY #90 tabs 05/07/22 02/22/24 Rx albuterol sulfate 90 mcg/actuation 2 puff inhalation Q4H PRN PRN 02/17/24 02/22/24 History aerosol inhaler shortness of breath or wheezing albuterol sulfate 90 mcg/actuation 2 puff inhalation Q4H PRN PRN 07/15/24 Unknown Rx aerosol inhaler (Ventolin HFA) Wheezing ##1 doxycycline hyclate 100 mg tablet 100 mg PO BID 07/15/24 Unknown History methylprednisolone 4 mg tablets in 4 mg PO UD ##1 07/15/24 Unknown Rx a dose pack prednisone 10 mg tablet 40 mg PO DAILY 07/15/24 Unknown History ciprofloxacin HCl 0.3 % eye drops 2 drp EACH EYE Q6H 7 days #10 mL 07/25/24 Unknown Rx sulfamethoxazole 800 1 tab PO BID 7 days #14 tabs 07/25/24 Unknown Rx mg-trimethoprim 160 mg tablet (Bactrim DS) Allergy/AdvReac Type Severity Reaction Status Date / Time cephalexin monohydrate (From Allergy Hives Verified 07/25/24 16:52 Keflex) latex Allergy Rash Verified 07/25/24 16:52 Penicillins (PCN) Allergy Hives Verified 07/25/24 16:52 Family History Grandfather Kidney disease Heart disease Colon cancer Sister Lung cancer Seizures Mother Cancer Diabetes Daughter Hypertension Thyroid disorder Surgical History Hx of colonoscopy History of cholecystectomy History of delivery Social History Smoking Status: Current every day smoker tobacco type: cigarettes second hand exposure: Yes quit status: not considering quitting alcohol intake: never substance use type: does not use caffeine: Yes what type of physical activity do you participate in: none seatbelt use: always do you feel safe at home: Yes additional social history: Employed Self reliance single ROS ROS ED Constitutional Constitutional ED: Denies chills or fever(s) Eyes Eyes: Reports other Details: Redness and swelling in the left thigh as well as around it. Patient states it started in the lids. ; Denies blurry vision, change in vision or diplopia ENT ENT ED: Denies ear pain or sore throat Cardiovascular Cardiovascular: Denies chest pain Respiratory/Chest Respiratory/Chest: Denies cough or dyspnea Gastrointestinal Gastrointestinal: Denies nausea or vomiting Integumentary Reports other Details: redness/swelling left eyelids, no other rash/redness Neurologic Neurologic: Denies headache(s), paresthesias or weakness EXAM Physical Exam Const Vital Signs: 07/25/24 16:50 07/25/24 21:34 Temperature 97.8 F Temperature Source Oral Pulse Rate 91 108 H Respiratory Rate 16 17 Blood Pressure 134/79 H 135/87 H Blood Pressure Mean 97 103 Pulse Ox 95 95 Oxygen Delivery Method Room Air Room Air Positive well nourished and well developed General Appearance ED: well developed HEENT HEENT Narrative: Relatively significant left periorbital erythema and edema without any reproducible tenderness in any of this area. The rest of the facial exam is normal, except for the eye exam see below. No sinus tenderness. No purulent nasal discharge. Intraoral exam normal. External ear exam normal. No periauricular lymphadenopathy. Eyes Eyes Narrative: PERRL, EOMI. The left eye displays watery discharge and significant diffuse conjunctival injection and chemosis. There is no purulent discharge. There is no proptosis or enophthalmos. She has no pain with extraocular movements or diplopia. There is no entrapment. Neck no lymphadenopathy and supple Resp normal respiratory effort Effort and Inspection: able to speak in complete sentences Neuro oriented x3, CN's II-XII intact bilaterally, moves all extremities, no sensory deficits noted and gait normal Motor Exam: strength 5/5 throughout Psych Psych Narrative: Normal affect Skin no wounds Skin Narrative: Left periorbital erythema without any focal lesion or other rashes. Lesions: no lesions MDM MDM MDM Narrative Medical decision making narrative: CT of the face with IV contrast was obtained in addition to white blood count which is normal, I reviewed the images and the report which I agree with, basically just shows the preseptal edema without any acute postseptal/orbital pathology. Dr. Krishna had told our physician earlier that he plan to follow-up with the patient as an outpatient if her CT was negative, the patient understands this and so that is the plan. No indication for IV antibiotics or admission at this time, patient stable for discharge. Discharge Plan Triage Chief Complaint: Eye Problem ED Provider: Luther Williamson Dx/Rx/DC Orders Clinical Impression: Acute conjunctivitis of left eye, Periorbital edema of left eye Instructions: ED Conjunctivitis, Nonspecific Prescriptions: No Action amlodipine 5 mg tablet 5 mg PO DAILY Qty: 90 3RF aspirin 81 mg capsule 81 mg PO DAILY Qty: 90 3RF atorvastatin 10 mg tablet 10 mg PO QHS Qty: 90 3RF levothyroxine 150 mcg tablet 150 mcg PO DAILY Qty: 90 3RF albuterol sulfate 90 mcg/actuation HFA aerosol inhaler 2 puff inhalation Q4H PRN PRN (Reason: shortness of breath or wheezing) prednisone 10 mg tablet 40 mg PO DAILY doxycycline hyclate 100 mg tablet 100 mg PO BID methylprednisolone 4 mg tablets,dose pack 4 mg PO UD Qty: 1 0RF albuterol sulfate [Ventolin HFA] 90 mcg/actuation HFA aerosol inhaler 2 puff inhalation Q4H PRN PRN (Reason: Wheezing) Qty: 1 0RF sulfamethoxazole-trimethoprim [Bactrim DS] 800-160 mg tablet 1 tab PO BID 7 Days Qty: 14 0RF ciprofloxacin HCl 0.3 % drops 2 drp EACH EYE Q6H 7 Days Qty: 10 0RF Primary Care Provider: Hu Hairston Referrals: Jamal Krishna MD [Med Staff - Active Staff] - Keep [place] appointment Hu Hairston MD [Primary Care Provider] - Print Language: Romansh Disposition Disposition: Home, Self Care
[2024-07-25 22:36] LABS: Absolute Lymphocyte Count 2.19 X10^3/uL (0.83-4.51); Absolute Neutrophil Count 5.1 X10^3/uL (2.0-7.7); Basophil# 0.05 X10^3/uL; Basophil% 0.6 % (0-1); Eosinophil# 0.08 X10^3/uL; Hematocrit 43.3 % (37-47); Hemoglobin 14.6 g/dL (12.0-15.0); Lymphocyte # 2.19 X10^3/ul (0.83-4.51); Lymphocyte % 26.6 % (19-41); Mean Corp Hgb Conc 33.7 g/dL (32-36); Mean Corpuscular Hgb 31.2 pg (27.0-32.0); Mean Corpuscular Volume 92.5 fL (81-99); Mean Platelet Vol. 10.8 fl (6.2-12.0); Monocyte# 0.78 X10^3/uL; Monocyte% 9.5 % (0-10); NRBC Flagged by Analyzer 0 % (0-5); Neutrophil % 61.8 % (47-70); Platelet Count 176 K/mm3 (150-450); RBC Distribution Width CV 13.3 % (11.6-14.6); RBC Distribution Width SD 45.5 fl (35.1-43.9); Red Blood Count 4.68 M/mm3 (4.2-5.4); White Blood Count 8.2 K/mm3 (4.4-11.0)
[2024-07-25 23:00] VITALS: BP 117/68; PULSE 93; RESP 18; TEMP 36.8; O2SAT 97
[2024-07-26] VITALS: BP 144/75; PULSE 84; RESP 18; TEMP 37.3; O2SAT 97
--- NOTE | 2024-07-26 00:49 | ED.RN ---
pt declined visual acuity
== END 2024-07-26 00:52 | disposition home or self-care (01) ==
PROVIDERS: Emergency Provider Emergency Medicine; PCP Family Medicine; Visit Provider Emergency Medicine
DX: H10.32 Unspecified acute conjunctivitis, left eye (principal); J44.9 Chronic obstructive pulmonary disease, unspecified; I10 Essential (primary) hypertension; E03.9 Hypothyroidism, unspecified; E78.00 Pure hypercholesterolemia, unspecified; M41.9 Scoliosis, unspecified; F17.210 Nicotine dependence, cigarettes, uncomplicated; Z88.1 Allergy status to other antibiotic agents; Z88.0 Allergy status to penicillin; Z79.82 Long term (current) use of aspirin; Z79.890 Hormone replacement therapy; Z79.899 Other long term (current) drug therapy
CPT/HCPCS: 70487; 85025; 99283; Q9967; A4216

== ENCOUNTER 2025-01-26 09:58 | Emergency (ER) | payer OTHER, SELFPAY ==
[2025-01-26 10:00] VITALS: BP 152/99; PULSE 97; RESP 26; TEMP 36.6; O2SAT 98; BMI 35.7
--- NOTE | 2025-01-26 10:25 | EDS_ITS ---
HPI History of Present Illness Chief Complaint: Shortness of Breath Informant: patient Narrative Narrative: 59-year-old female history of COPD and sleep apnea presenting to the emergency room with throat discomfort. Patient states that over the past several days she has felt the tightness in her throat as well as a cough. Patient denies any rhinorrhea nasal congestion or sputum production. She denies fever. She states she has had symptoms like this in the past. She notes some discomfort in the throat when she swallows. She notes that she does take inhalers at home is unsure of what they are but describes them as orange and blue. She also notes that they are a half a counter on the back of them. What concerned her most this morning was the tightness of the throat. [facility] Medical History Alcohol use Abscessed tooth Post-menopausal Depression Anemia High cholesterol Easy bruising Gastric reflux Smoker Shortness of breath on exertion Hx of colonic polyps Hypertension history excision abdominal wall tumor Blood in stool Acid reflux Laryngeal mass History of abnormal cervical Pap smear History Gallbladder Removal History of benign neoplasm of stomach History of bloody stools Anxiety Hyperthyroidism Scoliosis Asthma Tobacco abuse Hypothyroid COPD (chronic obstructive pulmonary disease) 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 Home Medications ?Medication ?Instructions ?Recorded ?Last Taken ?Type amlodipine 5 mg tablet 5 mg PO DAILY #90 tabs 05/0702/22/24 Rx aspirin 81 mg capsule 81 mg PO DAILY #90 caps 04/2002/22/24 Rx atorvastatin 10 mg tablet 10 mg PO QHS #90 tabs 02/22/24 Rx levothyroxine 150 mcg tablet 150 mcg PO DAILY #90 tabs 05/07/22 02/22/24 Rx albuterol sulfate 90 mcg/actuation 2 puff inhalation Q 4H PRN PRN 02/17/24 02/22/24 History aerosol inhaler shortness of breath or wheez ing albuterol sulfate 90 mcg/actuation 2 puff inhalation Q 4H PRN PRN 07/15/24 Unknown Rx aerosol inhaler (Ventolin HFA) Wheezing ##1 doxycycline hyclate 100 mg tablet 100 mg PO BID Unknown History methylprednisolone 4 mg tablets in 4 mg PO UD ##1 06/30 02/20 Unknown Rx a dose pack prednisone 10 mg tablet 40 mg PO DAILY 07/15/24 Unkn own History ciprofloxacin HCl 0.3 % eye drops 2 drp EACH EYE Q6H 7 days #10 mL 07/25/24 Unknown Rx sulfamethoxazole 800 1 tab PO BID 7 days #14 tabs 07/25/24 Unknown Rx mg-trimethoprim 160 mg tablet (Bactrim DS) Allergy/AdvReac Type Severity Reaction Status Date / Time cephalexin monohydrate (From Allergy Hives Verified 01/26/25 10:02 Keflex) latex Allergy Rash Verified 01/26/25 10:02 Penicillins (PCN) Allergy Hives Verified 01/26/25 10:02 Family History Grandfather Kidney disease Heart disease Colon cancer Sister Lung cancer Seizures Mother Cancer Diabetes Daughter Hypertension Thyroid disorder Surgical History Hx of colonoscopy History of cholecystectomy History of delivery Social History Smoking Status: Current every day smoker tobacco type: cigarettes second hand exposure: Yes quit status: not considering quitting alcohol intake: never substance use type: does not use caffeine: Yes what type of physical activity do you participate in: none seatbelt use: always do you feel safe at home: Yes additional social history: Employed Self reliance single ROS ROS ED Constitutional Constitutional ED: Denies chills, fever(s) or weight loss Eyes Eyes: Denies change in vision or diplopia ENT ENT ED: Reports sore throat; Denies ear pain or rhinorrhea Cardiovascular Cardiovascular: Denies chest pain, orthopnea, palpitations or racing heartbeat Respiratory/Chest Respiratory/Chest: Reports cough and dyspnea; Denies orthopnea Gastrointestinal Gastrointestinal: Denies abdominal pain, diarrhea, nausea or vomiting Genitourinary Genitourinary ED: Denies dysuria, hematuria or urinary frequency Musculoskeletal Musculoskeletal: Denies arthralgias or myalgias Integumentary Denies abscess or rash Neurologic Neurologic: Denies headache(s) or weakness Psychiatric Psychiatric: Denies anxiety, depression, suicidal ideation or suicidal thoughts Endocrine Endocrinology: Denies polydipsia, polyphagia or polyuria Allergic/Immunologic Allergic/Immunologic ED: Denies mouth swelling, tongue swelling or urticaria EXAM Physical Exam Const Vital Signs: 01/26/25 10:00 Temperature 97.9 F Temperature Source Oral Pulse Rate 97 Respiratory Rate 26 H Blood Pressure 152/99 H Blood Pressure Mean 116 Pulse Ox 98 Oxygen Delivery Method Room Air Positive well nourished and well developed General Appearance ED: well developed and NAD HEENT Reports normocephalic, head/scalp atraumatic and moist mucous membranes HEENT Narrative: I do not appreciate any oropharyngeal erythema or swelling. Uvula appears normal. No palatal petechiae. There is no trismus. Floor the mouth is soft. There is no stridor. Eyes PERRL and EOMs intact bilaterally Neck no lymphadenopathy, supple and no JVD Resp normal respiratory effort Auscultation: wheezes expiratory wheezes Cardio regular rate, regular rhythm and no murmurs GI normal to inspection, nondistended, normoactive bowel sounds and non-tender Palpation: soft Back/Spine no CVA tenderness and normal ROM Extremity normal to inspection General Extremety ED: Negative for edema General Extremity: Negative for edema Neuro oriented x3 and CN's II-XII intact bilaterally Sensorium / Orientation: alert Motor Exam: strength 5/5 throughout Psych mental status grossly normal Mood & Affect: Negative for depressed or tearful Skin no rashes or lesions noted and no wounds Discharge Plan Triage Chief Complaint: Shortness of Breath ED Provider: Carlito Lewis Dx/Rx/DC Orders Prescriptions: No Action amlodipine 5 mg tablet 5 mg PO DAILY Qty: 90 3RF aspirin 81 mg capsule 81 mg PO DAILY Qty: 90 3RF atorvastatin 10 mg tablet 10 mg PO QHS Qty: 90 3RF levothyroxine 150 mcg tablet 150 mcg PO DAILY Qty: 90 3RF albuterol sulfate 90 mcg/actuation HFA aerosol inhaler 2 puff inhalation Q4H PRN PRN (Reason: shortness of breath or wheezing) prednisone 10 mg tablet 40 mg PO DAILY doxycycline hyclate 100 mg tablet 100 mg PO BID methylprednisolone 4 mg tablets,dose pack 4 mg PO UD Qty: 1 0RF albuterol sulfate [Ventolin HFA] 90 mcg/actuation HFA aerosol inhaler 2 puff inhalation Q4H PRN PRN (Reason: Wheezing) Qty: 1 0RF sulfamethoxazole-trimethoprim [Bactrim DS] 800-160 mg tablet 1 tab PO BID 7 Days Qty: 14 0RF ciprofloxacin HCl 0.3 % drops 2 drp EACH EYE Q6H 7 Days Qty: 10 0RF Primary Care Provider: Hu Hairston Referrals: Hu Hairston MD [Primary Care Provider] - Print Language: Cameroonian
--- NOTE | 2025-01-26 10:25 | ED.VIS.DYS ---
HPI History of Present Illness Chief Complaint: Shortness of Breath Informant: patient Narrative Narrative: 59-year-old female history of COPD and sleep apnea presenting to the emergency room with throat discomfort. Patient states that over the past several days she has felt the tightness in her throat as well as a cough. Patient denies any rhinorrhea nasal congestion or sputum production. She denies fever. She states she has had symptoms like this in the past. She notes some discomfort in the throat when she swallows. She notes that she does take inhalers at home is unsure of what they are but describes them as orange and blue. She also notes that they are a half a counter on the back of them. What concerned her most this morning was the tightness of the throat. [facility] Medical History Alcohol use Abscessed tooth Post-menopausal Depression Anemia High cholesterol Easy bruising Gastric reflux Smoker Shortness of breath on exertion Hx of colonic polyps Hypertension history excision abdominal wall tumor Blood in stool Acid reflux Laryngeal mass History of abnormal cervical Pap smear History Gallbladder Removal History of benign neoplasm of stomach History of bloody stools Anxiety Hyperthyroidism Scoliosis Asthma Tobacco abuse Hypothyroid COPD (chronic obstructive pulmonary disease) 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 Home Medications ?Medication ?Instructions ?Recorded ?Last Taken ?Type amlodipine 5 mg tablet 5 mg PO DAILY #90 tabs 05/07/22 01/26/25 Rx aspirin 81 mg capsule 81 mg PO DAILY #90 caps 05/07/22 01/26/25 Rx atorvastatin 10 mg tablet 10 mg PO QHS #90 tabs 05/07/22 01/25/25 Rx levothyroxine 150 mcg tablet 150 mcg PO DAILY #90 tabs 05/07/22 01/26/25 Rx albuterol sulfate 90 mcg/actuation 2 puff inhalation Q4H PRN 02/17/24 02/22/24 History aerosol inhaler shortness of breath or wheezing prednisone 20 mg tablet See Rx Instructions .Route 01/26/25 Unknown Rx .COMPLEX #24 tabs Allergy/AdvReac Type Severity Reaction Status Date / Time cephalexin monohydrate (From Allergy Hives Verified 01/26/25 10:02 Keflex) latex Allergy Rash Verified 01/26/25 10:02 Penicillins (PCN) Allergy Hives Verified 01/26/25 10:02 Family History Grandfather Kidney disease Heart disease Colon cancer Sister Lung cancer Seizures Mother Cancer Diabetes Daughter Hypertension Thyroid disorder Surgical History Hx of colonoscopy History of cholecystectomy History of delivery Social History Smoking Status: Current every day smoker tobacco type: cigarettes second hand exposure: Yes quit status: not considering quitting alcohol intake: never substance use type: does not use caffeine: Yes what type of physical activity do you participate in: none seatbelt use: always do you feel safe at home: Yes additional social history: Employed Self reliance single ROS ROS ED Constitutional Constitutional ED: Denies chills, fever(s) or weight loss Eyes Eyes: Denies change in vision or diplopia ENT ENT ED: Reports sore throat; Denies ear pain or rhinorrhea Cardiovascular Cardiovascular: Denies chest pain, orthopnea, palpitations or racing heartbeat Respiratory/Chest Respiratory/Chest: Reports cough and dyspnea; Denies orthopnea Gastrointestinal Gastrointestinal: Denies abdominal pain, diarrhea, nausea or vomiting Genitourinary Genitourinary ED: Denies dysuria, hematuria or urinary frequency Musculoskeletal Musculoskeletal: Denies arthralgias or myalgias Integumentary Denies abscess or rash Neurologic Neurologic: Denies headache(s) or weakness Psychiatric Psychiatric: Denies anxiety, depression, suicidal ideation or suicidal thoughts Endocrine Endocrinology: Denies polydipsia, polyphagia or polyuria Allergic/Immunologic Allergic/Immunologic ED: Denies mouth swelling, tongue swelling or urticaria EXAM Physical Exam Const Vital Signs: 01/26/25 10:00 01/26/25 10:57 01/26/25 11:09 Temperature 97.9 F Temperature Source Oral Pulse Rate 97 90 Respiratory Rate 26 H 16 Respiratory Effort Short of Breath Labored Respiratory Depth Normal Respiratory Pattern Normal Normal Blood Pressure 152/99 H Blood Pressure Mean 116 Pulse Ox 98 Oxygen Delivery Method Room Air Room Air 01/26/25 11:58 01/26/25 12:21 Temperature 98.3 F Temperature Source Pulse Rate 80 80 Respiratory Rate 18 18 Respiratory Effort Respiratory Depth Respiratory Pattern Blood Pressure 120/70 120/70 Blood Pressure Mean 86 86 Pulse Ox 99 99 Oxygen Delivery Method Positive well nourished and well developed General Appearance ED: well developed and NAD HEENT Reports normocephalic, head/scalp atraumatic and moist mucous membranes HEENT Narrative: I do not appreciate any oropharyngeal erythema or swelling. Uvula appears normal. No palatal petechiae. There is no trismus. Floor the mouth is soft. There is no stridor. Eyes PERRL and EOMs intact bilaterally Neck no lymphadenopathy, supple and no JVD Resp normal respiratory effort Auscultation: wheezes expiratory wheezes Cardio regular rate, regular rhythm and no murmurs GI normal to inspection, nondistended, normoactive bowel sounds and non-tender Palpation: soft Back/Spine no CVA tenderness and normal ROM Extremity normal to inspection General Extremety ED: Negative for edema General Extremity: Negative for edema Neuro oriented x3 and CN's II-XII intact bilaterally Sensorium / Orientation: alert Motor Exam: strength 5/5 throughout Psych mental status grossly normal Mood & Affect: Negative for depressed or tearful Skin no rashes or lesions noted and no wounds MDM MDM MDM Narrative Medical decision making narrative: Differential diagnosis includes but not limited to COPD exacerbation pneumonia pharyngitis epiglottitis laryngitis. Patient received breathing treatments and her lung auscultation shows wheezing to be improved. My independent interpretation a chest x-ray is no acute process. White count is 9.9 BMP with glucose 105. Patient is not hypoxemic. Her tachypnea is better. I do not hear stridor no difficulty handling secretions. When asked where she feels the tightness she points to more the suprasternal notch than she does at the end of her throat region. I would be treating her with some steroids. Continue her COPD inhalers at home. Follow-up with primary care 3 to 5 days if not improving. History & Record Review Discussion w/independent historian: Patient Additional record(s) reviewed:: Prior ED visit and Prior labs Lab Data Attestation: I reviewed the patient's lab results. Labs: Laboratory Results - last 24 hr 01/26/25 10:30 WBC 9.9 RBC 4.55 Hgb 14.1 Hct 41.8 MCV 91.9 MCH 31.0 MCHC 33.7 RDW Std Deviation 47.5 H RDW Coeff of Vinicio 13.9 Plt Count 177 MPV 11.4 Immature Gran % (Auto) 0.400 Neut % (Auto) 63.4 Lymph % (Auto) 27.1 [place] % (Auto) 6.1 Eos % (Auto) 2.6 Baso % (Auto) 0.4 Absolute Neuts (auto) 6.3 Absolute Lymphs (auto) 2.68 Nucleated RBC % 0 Sodium 138 Potassium 3.5 Chloride 103 Carbon Dioxide 25.3 Anion Gap 10 BUN 14 Creatinine 0.61 L Estim Creat Clear Calc 119.78 Est GFR (MDRD) Non-Af 102 BUN/Creatinine Ratio 22.9 H Glucose 105 H Calcium 9.0 Radiography Diagnostic Testing: Clinical Impression(s) from Imaging Studies Chest X-Ray 01/26/25 11:11 IMPRESSION: No Acute Findings. Reading Location: [place] [id number] Discharge Plan Triage Chief Complaint: Shortness of Breath ED Provider: Carlito Lewis Dx/Rx/DC Orders Clinical Impression: COPD with exacerbation, Dyspnea Prescriptions: New prednisone 20 mg tablet See Rx Instructions .ROUTE .COMPLEX Qty: 24 0RF Rx Instructions: 3 tabs p.o. daily x 4 days then 2 tabs p.o. daily x 4 days then 1 tab p.o. daily x 4 days No Action amlodipine 5 mg tablet 5 mg PO DAILY Qty: 90 3RF aspirin 81 mg capsule 81 mg PO DAILY Qty: 90 3RF atorvastatin 10 mg tablet 10 mg PO QHS Qty: 90 3RF levothyroxine 150 mcg tablet 150 mcg PO DAILY Qty: 90 3RF albuterol sulfate 90 mcg/actuation HFA aerosol inhaler 2 puff inhalation Q4H PRN (Reason: shortness of breath or wheezing) Primary Care Provider: Hu Hairston Referrals: Hu Hairston MD [Primary Care Provider] - 3-5 Days if not improving Print Language: Thai Disposition Disposition: Home, Self Care
[2025-01-26 10:46] LABS: Absolute Lymphocyte Count 2.68 X10^3/uL (0.83-4.51); Absolute Neutrophil Count 6.3 X10^3/uL (2.0-7.7); Basophil# 0.04 X10^3/uL; Basophil% 0.4 % (0-1); Eosinophil# 0.26 X10^3/uL; Eosinophils% 2.6 % (0-5); Hematocrit 41.8 % (37-47); Hemoglobin 14.1 g/dL (12.0-15.0); Lymphocyte # 2.68 X10^3/ul (0.83-4.51); Lymphocyte % 27.1 % (19-41); Mean Corp Hgb Conc 33.7 g/dL (32-36); Mean Corpuscular Volume 91.9 fL (81-99); Mean Platelet Vol. 11.4 fl (6.2-12.0); Monocyte% 6.1 % (0-10); NRBC Flagged by Analyzer 0 % (0-5); Neutrophil # 6.27 X10^3/uL (2.7-7.7); Neutrophil % 63.4 % (47-70); Platelet Count 177 K/mm3 (150-450); RBC Distribution Width CV 13.9 % (11.6-14.6); RBC Distribution Width SD 47.5 fl (35.1-43.9); Red Blood Count 4.55 M/mm3 (4.2-5.4); White Blood Count 9.9 K/mm3 (4.4-11.0)
[2025-01-26] MEDS: MethylPREDNISolone 125 MG/2 ML Vial IV (10:46)
[2025-01-26] MEDS: Ipratropium/Albuterol Sulfate 3 ML AMPUL.NEB INHALATION (10:48)
[2025-01-26] MEDS: Albuterol 2.5 MG/3 ML VIAL.NEB. INHALATION (10:48)
[2025-01-26 10:57] VITALS: PULSE 90; RESP 16
[2025-01-26 11:09] VITALS: O2SAT 97
--- NOTE | 2025-01-26 11:11 | RAD_ITS ---
PROCEDURE: CHEST 1 VIEW (PORTABLE) 01/26/2025 REASON FOR EXAM: COPD Shortness of breath TECHNIQUE: Frontal view of the chest. COMPARISON: Prior study dated July 15, 2024. FINDINGS: Hardware: None Heart: Cardiac and mediastinal contours are stable. Lungs: Hyperinflation. The lungs are clear. Bones: Degenerative changes are identified within the thoracic spine. Other: RAD/Chest 1 View (Portable) IMPRESSION: No Acute Findings. Reading Location: [place] [id number]
[2025-01-26 11:17] LABS: Anion Gap 10 (5-15); BUN 14 mg/dL (4-19); BUN/Creat Ratio 22.9 RATIO (10-20); Carbon Dioxide 25.3 mmol/L (21.0-32.0); Chloride 103 mmol/L (98-108); Creatinine, Serum 0.61 mg/dL (0.70-1.20); EST Glomerular Filtration Rate 102 (>60); Estimated Creatinine Clearance 119.78 ml/min (50-250); Glucose 105 mg/dL (70-99); Potassium 3.5 mmol/L (3.3-5.1); Sodium Level 138 mmol/L (133-145)
[2025-01-26 11:58] VITALS: BP 120/70; PULSE 80; RESP 18; O2SAT 99
[2025-01-26 12:21] VITALS: BP 120/70; PULSE 80; RESP 18; TEMP 36.8; O2SAT 99
== END 2025-01-26 12:26 | disposition home or self-care (01) ==
PROVIDERS: Emergency Provider Emergency Medicine; PCP Family Medicine; Visit Provider Emergency Medicine
DX: J44.1 Chronic obstructive pulmonary disease with (acute) exacerbation (principal); I10 Essential (primary) hypertension; E03.9 Hypothyroidism, unspecified; M41.9 Scoliosis, unspecified; E78.00 Pure hypercholesterolemia, unspecified; F17.210 Nicotine dependence, cigarettes, uncomplicated; Z90.49 Acquired absence of other specified parts of digestive tract; Z79.82 Long term (current) use of aspirin; Z79.890 Hormone replacement therapy; Z79.899 Other long term (current) drug therapy
CPT/HCPCS: 71045; 80048; 85025; 94640; 96374; 99283; A4216

== ENCOUNTER 2025-02-11 17:55 | Emergency (ER) | payer OTHER, SELFPAY ==
[2025-02-11] VITALS (8 sets, daily range): BP systolic 122–142; BP diastolic 68–88; PULSE 89–105; RESP 16–26; TEMP 36.5–36.8; O2SAT 92–94; BMI 36.3
--- NOTE | 2025-02-11 18:19 | ED.VIS.DYS ---
HPI History of Present Illness Chief Complaint: Shortness of Breath Informant: patient Onset/Context/Timing Onset: Today Context: sudden Timing: Continuous Quality: Positive for Wheezing Worsened by: Coughing Relieved by: Albuterol Associated Symptoms cough, sore throat and yellow sputum; Negative for rhinorrhea, post nasal drip, ear pain, fever, chills, sweats, clear sputum, white sputum or green sputum Narrative Narrative: Patient presents with shortness of breath and cough that became worse today. Patient states it began rather suddenly. Patient states she felt herself wheezing. Patient states she was coughing up some yellow sputum. Patient denies any fevers or chills. Patient states her throat felt like it was getting tight. Patient also admits to some tightness and wheezing in her chest. Patient called EMS. Patient was given a DuoNeb aerosol by EMS. Patient states this started to help. [facility] Medical History Alcohol use Abscessed tooth Post-menopausal Depression Anemia High cholesterol Easy bruising Gastric reflux Smoker Shortness of breath on exertion Hx of colonic polyps Hypertension history excision abdominal wall tumor Blood in stool Acid reflux Laryngeal mass History of abnormal cervical Pap smear History Gallbladder Removal History of benign neoplasm of stomach History of bloody stools Anxiety Hyperthyroidism Scoliosis Asthma Tobacco abuse Hypothyroid COPD (chronic obstructive pulmonary disease) 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 Home Medications ?Medication ?Instructions ?Recorded ?Last Taken ?Type amlodipine 5 mg tablet 5 mg PO DAILY #90 tabs 05/07/22 01/26/25 Rx aspirin 81 mg capsule 81 mg PO DAILY #90 caps 05/07/22 01/26/25 Rx atorvastatin 10 mg tablet 10 mg PO QHS #90 tabs 05/07/22 01/25/25 Rx levothyroxine 150 mcg tablet 150 mcg PO DAILY #90 tabs 05/07/22 01/26/25 Rx albuterol sulfate 90 mcg/actuation 2 puff inhalation Q4H PRN 02/17/24 02/22/24 History aerosol inhaler shortness of breath or wheezing prednisone 20 mg tablet See Rx Instructions .Route 01/26/25 Unknown Rx .COMPLEX #24 tabs prednisone 20 mg tablet 60 mg (3 x 20 mg) PO DAILY #15 02/11/25 Unknown Rx TABLETS Allergy/AdvReac Type Severity Reaction Status Date / Time cephalexin monohydrate (From Allergy Hives Verified 01/26/25 10:02 Keflex) latex Allergy Rash Verified 01/26/25 10:02 Penicillins (PCN) Allergy Hives Verified 01/26/25 10:02 Family History Grandfather Kidney disease Heart disease Colon cancer Sister Lung cancer Seizures Mother Cancer Diabetes Daughter Hypertension Thyroid disorder Surgical History Hx of colonoscopy History of cholecystectomy History of delivery Social History Smoking Status: Light Smoker (<10/day) second hand exposure: Yes quit status: not considering quitting alcohol intake: never substance use type: does not use caffeine: Yes what type of physical activity do you participate in: none seatbelt use: always do you feel safe at home: Yes additional social history: Employed Self reliance single ROS ROS ED Constitutional Constitutional ED: Denies chills or fever(s) Eyes Eyes: Denies blurry vision or change in vision ENT ENT ED: Reports sore throat; Denies rhinorrhea Cardiovascular Cardiovascular: Reports chest pain; Denies palpitations Respiratory/Chest Respiratory/Chest: Reports cough, dyspnea and sputum Gastrointestinal Gastrointestinal: Denies nausea or vomiting Genitourinary Genitourinary ED: Denies dysuria or hematuria Musculoskeletal Musculoskeletal: Denies back pain or neck pain Integumentary Denies abscess or rash Neurologic Neurologic: Denies headache(s) or weakness Allergic/Immunologic Allergic/Immunologic ED: Denies mouth swelling or urticaria EXAM Physical Exam Const Vital Signs: 02/11/25 17:56 02/11/25 17:56 02/11/25 18:00 Temperature 97.7 F L 97.7 F L Temperature Source Oral Temporal Pulse Rate 105 H 105 H Respiratory Rate 25 H 23 H Respiratory Effort Short of Breath Respiratory Depth Normal Respiratory Pattern Normal Blood Pressure 142/68 H 142/68 H Blood Pressure Mean 92 92 Pulse Ox 93 92 Oxygen Delivery Method Room Air Room Air Room Air 02/11/25 19:04 02/11/25 19:17 02/11/25 20:00 Temperature 97.7 F L Temperature Source Temporal Pulse Rate 93 92 89 Respiratory Rate 16 16 26 H Respiratory Effort Respiratory Depth Respiratory Pattern Normal Blood Pressure 135/88 H 131/79 H Blood Pressure Mean 103 96 Pulse Ox 94 92 Oxygen Delivery Method Room Air 02/11/25 21:10 Temperature Temperature Source Pulse Rate 94 Respiratory Rate 19 H Respiratory Effort Respiratory Depth Respiratory Pattern Blood Pressure Blood Pressure Mean Pulse Ox 93 Oxygen Delivery Method Room Air Positive well nourished and well developed Constitutional Narrative: BMI is 36.4. General Appearance ED: well developed and NAD HEENT Reports moist mucous membranes atraumatic Neck supple and no JVD Resp normal respiratory effort Auscultation: wheezes expiratory wheezes and throughout Cardio regular rate and regular rhythm GI non-tender and non-distended Palpation: soft Extremity normal to inspection General Extremety ED: Negative for edema or tenderness General Extremity: Negative for edema Neuro oriented x3, CN's II-XII intact bilaterally and no sensory deficits noted Storm Coma Scale: document GCS findings Spontaneous Obeys Commands Oriented 15 Sensorium / Orientation: alert Speech: speech normal Psych mental status grossly normal MDM MDM MDM Narrative Medical decision making narrative: Differential diagnosis includes asthma exacerbation, COPD exacerbation, pneumonia, bronchitis, viral illness, and reactive airway disease. Chest x-ray will be obtained to assess for pneumonia or bronchitis. CBC will be obtained to assess for leukocytosis and anemia. Basic metabolic profile will be obtained to assess for electrolyte abnormality and renal function. Lab Data Attestation: I reviewed the patient's lab results. Lab results narrative: CBC was reviewed and was within normal limits. Basic metabolic profile was reviewed. Potassium is slightly low at 3.1. The remainder is within normal limits. Labs: Laboratory Results - last 24 hr 02/11/25 18:44 WBC 10.7 RBC 4.21 Hgb 13.1 Hct 39.0 MCV 92.6 MCH 31.1 MCHC 33.6 RDW Std Deviation 49.1 H RDW Coeff of Vinicio 14.6 Plt Count 151 MPV 11.6 Immature Gran % (Auto) 0.400 Neut % (Auto) 69.8 Lymph % (Auto) 20.7 [place] % (Auto) 6.1 Eos % (Auto) 2.5 Baso % (Auto) 0.5 Absolute Neuts (auto) 7.5 Absolute Lymphs (auto) 2.22 Nucleated RBC % 0 Sodium 142 Potassium 3.1 L Chloride 104 Carbon Dioxide 26.6 Anion Gap 11 BUN 9 Creatinine 0.56 L Estim Creat Clear Calc 131.77 Est GFR (MDRD) Non-Af 104 BUN/Creatinine Ratio 16.5 Glucose 75 Calcium 8.6 Radiography Chest X-Ray - ED: 2 View, Read by ED Physician, Read by Radiologist and No Acute Disease Diagnostic Testing: Clinical Impression(s) from Imaging Studies Chest X-Ray 02/11/25 19:28 IMPRESSION: No focal airspace abnormality. Reading Location: [facility] [place] and lateral chest x-ray was obtained. There are 2 views. On my independent interpretation, lung santana are clear. There is normal cardiac silhouette. Bony thorax is normal. There is no acute process noted. Radiologist also interpreted the x-ray and agrees. Treatment and Re-Evaluation :: Patient was given albuterol aerosols. Patient was given a dose of prednisone. Patient was given a repeat albuterol aerosol. Patient was feeling somewhat better on reevaluation. Patient was given a prescription for prednisone. Patient was instructed to continue her aerosols and inhalers at home as needed. Patient was instructed to return if worse in any way. Patient understood and was agreeable with plan. All questions were answered. Discharge Plan Triage Chief Complaint: Shortness of Breath ED Provider: Esa Thacker Dx/Rx/DC Orders Clinical Impression: COPD exacerbation, Hypertension Instructions: ED COPD Flare Prescriptions: New prednisone 20 mg tablet 60 mg PO DAILY Qty: 15 0RF No Action amlodipine 5 mg tablet 5 mg PO DAILY Qty: 90 3RF aspirin 81 mg capsule 81 mg PO DAILY Qty: 90 3RF atorvastatin 10 mg tablet 10 mg PO QHS Qty: 90 3RF levothyroxine 150 mcg tablet 150 mcg PO DAILY Qty: 90 3RF albuterol sulfate 90 mcg/actuation HFA aerosol inhaler 2 puff inhalation Q4H PRN (Reason: shortness of breath or wheezing) prednisone 20 mg tablet See Rx Instructions .ROUTE .COMPLEX Qty: 24 0RF Rx Instructions: 3 tabs p.o. daily x 4 days then 2 tabs p.o. daily x 4 days then 1 tab p.o. daily x 4 days Primary Care Provider: Hu Hairston Referrals: Hu Hairston MD [Primary Care Provider] - 5-7 Days Print Language: Nepali Disposition Disposition: Home, Self Care
--- OUTSIDE RECORDS SUMMARY | 2025-02-11 18:36 | XMS RPT_ITS | CCD ---
Author Organization [facility] Care Team Providers Care Cone Cleaner Name Role Phone Reymundo, PERFORMANCE TEST ARCHITECT-C Romi Referring Provider Reymundo PERFORMANCE TEST ARCHITECT-C Romi Other Provider [phone] [place] [address], [facility] Primary Care Pro vider [facility], [facility] Other Provider Dr. Moises Ruiz Attending Provider Marika GIBSON, Hu De Luna Primary Care Provider EVELYN GIBSON, DR ESTEVEZ Primary Care Physician HU Quinones Primary Care Unavailable HU RICARDO Primary Care Unavailable HU RICARDO Primary Care Unavailable EVELYN GIBSON, DR ESTEVEZ Primary Care Unavailable CINDI GIBSON, EWELINA Molina Attending Unavailable RADHA GIBSON, CLARA Attending Unavailable EVELYN GIBSON, DR ESTEVEZ Primary Care Unavailable Marika GIBSON, Dr. Lui Primary Care Provider [phone] Dr. Carlito Lewis DO Emergency Provider Hu Ricardo Attending Unavailable Marika, Hu Primary Care Unavailable Hu Ricardo Referring Unavailable Robotkristopher, Jazmine Attending Unavailable Marika, Hu Primary Care Unavailable Hu Ricardo Referring Unavailable Robotham, Jazmine Consulting Unavailable Jazmine Contreras Attending Unavailable Marika, Hu Primary Care Unavailable Marika, Hu Primary Care Unavailable Clara Henderson V Attending Unavailable Clara Henderson V Referring Unavailable Marika, Hu Primary Care Unavailable Carlito Lewis Attending Unavailable Marika, Hu Primary Care Unavailable Luther Williamson Attending Unavailable Marika, Hu Primary Care Unavailable Emiliano Cisse Attending Unavailable Jamal Thompson Attending Unavailable Hu Ricardo Primary Care Unavailable Allergies Allergy Classification Reported Allergen(s) Allergy Type Date of Onset Reaction(s) Facility (8 sources) Cephalexin; Translations: [cephalexin monohydrate] Drug Allergy 05-24-2019 [facility] (12 sources) Latex; Translations: [LATEX] Allergy to substance 01-08-2015 Intolerance [facility] (11 sources) Penicillins; Translations: [PENICILLINS] Allergy to substance 04-11-2021 [facility] (5 sources) Cephalexin; Translations: [cephalexin] Drug Allergy 01-10-2014 [facility] (2 sources) Penicillin; Translations: [penicillin] Drug Allergy [facility] (1 source) Latex Drug allergy (disorder) 01-26-2025 [facility] Repository Medications Current Medications Medication Drug Class(es) Dates Sig (Normalized) Sig (Original) amLODIPine 5 mg oral tablet (12 sources) Dihydropyridine Calcium Channel Pennie Start: 01-29-2022 End: 05-07-2022 take 1 tablet by mouth once amLODIPine (NORVASC) 5 mg tablet Take 1 tablet by mouth every afternoon. 05/28/2024 Active Budesonide / formoterol (2 sources) Corticosteroid, beta2-Adrenergic Agonist Start: 04-18-2015 take 2 puff(s) by inhalation twice daily budesonide-formot cristal (SYMBICORT) 160-4.5 mcg/actuation inhaler Inhale 2 Puffs as instructed twice daily. 1 Inhaler 3 04/18/2015 Active cefdinir 300 mg oral capsule (1 source) Cephalosporin Antibacterial Start: 07-28-2024 End: 08-04-2024 cefdinir 300 mg oral capsule Dose : 300 mg = 1 cap(s), Oral, q12h, X 7 day(s), # 14 cap(s), 0 Refill(s), 08/04/24 10:11:00 AM EST, Preseptal cellulitis of left eye, 86.4 Start Date: 07/28/24 Stop Date: 08/04/24 Status: Ordered erythromycin 0.005 mg/mg ophthalmic ointment (1 source) Macrolide, Macrolide Antimicrobial Start: 07-22-2024 End: 07-29-2024 erythromycin (ROMYCIN) 5 mg/gram (0.5 %) ophthalmic ointment Use 1 application in the left eye four times daily for 7 days. 3.5 g 07/22/2024 07/29/2024 Active predniSONE 20 mg oral tablet (15 sources) Start: 01-26-2025 take 3 tablets by mouth once daily, then take 2 tablets by mouth once daily, then take 1 tablet by mouth once daily Prednisone 20 mg tablet Active 0 .ROUTE .COMPLEX January 26, 2025 12:00am 3 tabs p.o. daily x 4 days then 2 tabs p.o. daily x 4 days then 1 tab p.o. daily x 4 days Start: 07-09-2024 End: 01-26-2025 take 4 tablets by mouth once daily Prednisone 10 mg tablet Discontinued 40 mg PO DAILY July 15, 2024 1:00am January 26, 2025 11:57am Start: 11-14-2022 End: 02-17-2024 take 2 tablets by mouth once daily Prednisone 20 mg tablet Discontinued 40 mg PO DAILY November 14, 2022 12:00am February 17, 2024 1:32pm Start: 11-14-2022 take 40 mg by mouth once daily Prednisone Active 40 MG PO DAILY November 13, 2022 11:00pm Start: 09-25-2014 End: 02-17-2015 take 2 tablets by mouth once daily Prednisone 20 MG tablet Discontinued 40 mg PO DAILY@0800 4 September 25, 2014 1:00am February 17, 2015 9:46am Start: 09-25-2014 End: 02-17-2015 take 40 mg by mouth once daily Prednisone Discontinued 40 MG PO DAILY@0800 4 September 25, 2014 12:00am February 17, 2015 8:46am Completed/Discontinued Medications Medication Drug Class(es) Dates Sig (Normalized) Sig (Original) acamprosate calcium 333 mg delayed release oral tablet (7 sources) Start: 09-25-2014 End: 10-20-2017 take 2 tablets by mouth three times daily Acamprosate 333 MG tablet,delayed release (DR/EC) Discontinued 666 mg PO THREE TIMES A DAY September 25, 2014 1:00am October 20, 2017 2:34pm Start: 09-25-2014 End: 10-20-2017 take 666 mg by mouth three times daily Acamprosate Discontinued 666 MG PO THREE TIMES A DAY September 25, 2014 12:00am October 20, 2017 1:34pm acetaminophen 325 mg / HYDROcodone bitartrate 5 mg oral tablet (7 sources) Opioid Agonist Start: 11-12-2021 End: 01-29-2022 Hydrocodone-Acetaminophen 1 TABLET tablet Discontinued 1 {tbl} PO EVERY 4 HOURS NEEDED as needed for Pain 10 November 12, 2021 January 29, 2022 8:29am Start: 11-12-2021 End: 01-29-2022 take 1 tablet by mouth every four hours as needed Hydrocodone-Acetaminophen Discontinued 1 TABLET PO EVERY 4 HOURS NEEDED 10 November 12, 2021 January 29, 2022 7:29am [id number] 200 actuat albuterol 0.09 mg/actuat metered dose inhaler (11 sources) beta2-Adrenergic Agonist Start: 02-17-2024 End: 01-26-2025 Albuterol Sulfate (Ventolin Hfa) 90 mcg/actuation HFA aerosol inhaler Discontinued 2 NMA INHALATION EVERY 4 HOURS NEEDED as needed for Wheezing July 15, 2024 1:00am January 26, 2025 11:56am Start: 04-08-2017 take 1 puff(s) by mo uth every six hours as needed VENTOLIN HFA 90 mcg/actuation inhaler INHALE TWO(2) PUFFS BY MOUTH EVERY 6 HOURS NEEDED 18 g 2 04/08/2017 Active Start: 09-25-2014 take 1 puff(s) by in halation every six hours as needed Albuterol Sulfate Active 1 PUFF INHALATION EVERY 6 HOURS NEEDED September 25, 2014 2:10am Start: 09-25-2014 End: 01-29-2022 Albuterol Sulfate 1 INHALER inhaler Discontinued 1 NMA INHALATION EVERY 6 HOURS NEEDED as needed for Asthma September 25, 2014 1:00am January 29, 2022 8:28am Start: 09-25-2014 End: 01-29-2022 take 1 puff(s) by inhalation every six hours as needed Albuterol Sulfate Discontinued 1 PUFF INHALATION EVERY 6 HOURS NEEDED September 25, 2014 12:00am January 29, 2022 7:28am aspirin 81 mg oral tablet (20 sources) Platelet Aggregation Inhibitor, Nonsteroidal Anti-inflammatory Drug Start: 01-29-2022 End: 05-07-2022 take 1 capsule by mouth once daily Aspirin 81 mg capsule Discontinued 81 mg PO DAILY 90 April 23, 2022 9:53am May 07, 2022 8:20am Start: 03-05-2017 End: 01-29-2022 Aspirin (Adult Low Dose Aspi rin) 81 mg tablet,delayed release (DR/EC) Discontinued 81 mg PO DAILY October 20, 2017 1:00am January 29, 2022 8:28am Start: 09-25-2014 End: 02-17-2015 take 1 tablet by mouth once daily Aspirin 81 MG Tab.Chew Discontinued 81 mg PO DAILY@0800 September 25, 2014 1:00am February 17, 2015 9:46am atorvastatin 10 mg oral tablet (17 sources) HMG-CoA Reductase Inhibitor Start: 01-29-2022 End: 05-07-2022 take 1 tablet by mouth at bedtime Atorvastatin 10 mg tablet Discontinued 10 mg PO AT BEDTIME April 23, 2022 9:53am May 07, 2022 8:20am azithromycin 250 mg oral tablet (5 sources) Macrolide Antimicrobial Start: 11-14-2022 End: 02-17-2024 Azithromycin 250 mg tablet Discontinued 0 PO .COMPLEX November 14, 2022 12:00am February 17, 2024 1:32pm For 250 mg dose pack: take 500 mg today (day 1), then 250 mg for 4 days (days 2-5) Start: 11-14-2022 Azithromycin A ctive 0 PO .COMPLEX November 13, 2022 11:00pm For 250 mg dose pack: take 500 mg today (day 1), then 250 mg for 4 days (days 2-5) ciprofloxacin 3 mg/ml ophthalmic solution (1 source) Quinolone Antimicrobial Start: 07-25-2024 End: 01-26-2025 Ciprofloxacin Hcl 0.3 % drops Discontinued 2 NMA EACH EYE EVERY 6 HOURS 10 July 25, 2024 1:00am January 26, 2025 11:57am clindamycin 300 mg oral capsule (14 sources) Lincosamide Antibacterial Start: 11-12-2021 End: 01-29-2022 take 1 capsule by mouth every six hours Clindamycin Hcl (Cleocin Hcl) 300 MG capsule Discontinued 300 mg PO EVERY 6 HOURS 40 November 12, 2021 12:00am January 29, 2022 8:28am Start: 02-01-2015 End: 02-17-2015 take 2 capsules by mouth four times daily Clindamycin Hcl 150 MG capsule Discontinued 300 mg PO 4 TIMES DAILY 80 February 01, 2015 12:00am February 17, 2015 9:46am Start: 02-01-2015 End: 02-17-2015 take 300 mg by mouth four times daily Clindamycin Hcl Discontinued 300 MG PO 4 TIMES DAILY 80 January 31, 2015 11:00pm February 17, 2015 8:46am doxycycline hyclate 100 mg oral tablet (2 sources) Tetracycline-class Drug Start: 07-09-2024 End: 01-26-2025 take 1 tablet by mouth twice daily Doxycycline Hyclate 100 mg tablet Discontinued 100 mg PO TWICE A DAY July 15, 2024 1:00am January 26, 2025 11:57am Hydrocortisone 2.5 % cream with applicator (1 source) Start: 01-11-2019 End: 05-24-2019 Hydrocortisone 2.5 % cream with applicator Discontinued 1 % RC DAILY January 11, 2019 12:00am May 24, 2019 10:42am hydrocortisone 2.5 % rectal cream with applicator (6 sources) Start: 01-11-2019 End: 05-24-2019 hydrocortisone 2.5 % rectal cream with applicator Discontinued 1 % RC DAILY January 11, 2019 2:21pm May 24, 2019 10:42am Start: 01-11-2019 End: 05-24-2019 hydrocortisone 2.5 % rectal cream with applicator Discontinued 1 % RC DAILY January 10, 2019 11:00pm May 24, 2019 9:42am Start: 01-11-2019 End: 05-24-2019 hydrocortisone 2.5 % rectal cream with applicator Discontinued 1 % RC DAILY January 11, 2019 12:00am May 24, 2019 10:42am levothyroxine sodium 0.15 mg oral tablet (20 sources) l-Thyroxine Start: 01-29-2022 End: 05-07-2022 take 1 tablet by mouth once daily Levothyroxine 150 mcg tablet Discontinued 150 ug PO DAILY April 23, 2022 9:53am May 07, 2022 8:20am Start: 05-24-2019 End: 01-29-2022 Levothyroxine 137 mcg tablet Discontinued 150 ug PO DAILY May 24, 2019 12:00am January 29, 2022 8:27am Start: 05-24-2019 End: 01-29-2022 take 150 ug by mouth once daily Levothyroxine Discontinued 150 MCG PO DAILY May 23, 2019 11:00pm January 29, 2022 7:27am Start: 01-11-2019 End: 05-24-2019 Levothyroxine 100 mcg tablet Discontinued 125 ug PO DAILY January 11, 2019 2:19pm May 24, 2019 10:42am Start: 01-11-2019 End: 05-24-2019 take 125 ug by mouth once daily Levothyroxine Discontinued 125 MCG PO DAILY January 11, 2019 1:19pm May 24, 2019 9:42am Start: 01-29-2017 take 1 tablet by cherie th once daily levothyroxine (SYNTHROID) 137 mcg tablet TAKE 1 TABLET BY MOUTH ONCE DAILY. 90 tablet 3 01/29/2017 Active Start: 09-25-2014 End: 01-11-2019 Levothyroxine 100 MCG tablet Discontinued 137 ug PO DAILY September 25, 2014 1:00am January 11, 2019 2:23pm Start: 09-25-2014 End: 01-11-2019 take 137 ug by mouth once daily Levothyroxine Discontinued 137 MCG PO DAILY September 25, 2014 12:00am January 11, 2019 1:23pm lisinopril 20 mg oral tablet (7 sources) Angiotensin Converting Enzyme Inhibitor Start: 11-12-2021 End: 01-29-2022 Lisinopril 20 mg tablet Discontinued November 12, 2021 12:00am January 29, 2022 9:18am Start: 11-12-2021 End: 01-29-2022 Lisinopril Discontinued 2021 11:00pm January 29, 2022 8:18am loratadine 10 mg oral tablet (16 sources) Start: 05-24-2019 End: 01-29-2022 take 1 tablet by mouth once daily Loratadine (Claritin) 10 mg tablet Discontinued 10 mg PO DAILY May 24, 2019 12:00am January 29, 2022 8:29am Start: 09-25-2014 End: 01-11-2019 take 1 tablet by mouth once daily Loratadine 10 MG tablet Discontinued 10 mg PO DAILY September 25, 2014 1:00am January 11, 2019 2:20pm methylPREDNISolone 4 mg oral tablet (1 source) Corticosteroid Start: 07-15-2024 End: 01-26-2025 Methylprednisolone 4 mg tablets,dose pack Discontinued 4 mg PO DIRECTED July 15, 2024 1:00am January 26, 2025 11:57am montelukast 10 mg oral tablet (7 sources) Leukotriene Receptor Antagonist Start: 05-31-2018 End: 01-11-2019 take 1 tablet by mouth once daily Montelukast 10 MG tablet Discontinued 10 mg PO DAILY May 31, 2018 12:00am January 11, 2019 2:20pm Multivitamin 1 EACH tablet (1 source) Start: 05-31-2018 End: 01-11-2019 Multivitamin 1 EACH tablet Discontinued 1 NMA PO DAILY May 31, 2018 12:00am January 11, 2019 2:23pm Multivitamin preparation (6 sources) Start: 05-31-2018 End: 01-11-2019 Multivitamin Discontinued 1 EACH PO DAILY May 31, 2018 1:40pm January 11, 2019 2:23pm Start: 05-31-2018 End: 01-11-2019 Multivitamin Discontinued 1 EACH PO DAILY May 30, 2018 11:00pm January 11, 2019 1:23pm Start: 05-31-2018 End: 01-11-2019 Multivitamin Discontinued 1 EACH PO DAILY May 31, 2018 12:00am January 11, 2019 2:23pm 24 hr nicotine 0.583 mg/hr transdermal system (7 sources) Cholinergic Nicotinic Agonist Start: 05-31-2018 End: 01-11-2019 apply 14 mg transdermal route once daily Nicotine 14 MG patch Discontinued 14 mg TRANSDERM. DAILY May 31, 2018 12:00am January 11, 2019 2:21pm pantoprazole 40 mg delayed release oral tablet (5 sources) Proton Pump Inhibitor Start: 01-29-2022 End: 12-16-2023 take 1 tablet by mouth once daily Pantoprazole 40 mg tablet,delayed release (DR/EC) Discontinued 40 mg PO DAILY January 29, 2022 12:00am December 16, 2023 12:00pm polyethylene glycol 3350 65054 mg powder for oral solution (7 sources) Osmotic Laxative Start: 01-11-2019 End: 05-24-2019 Polyethylene Glycol 3350 (Purelax) 17 gram/dose powder Discontinued 17 g PO DAILY January 11, 2019 12:00am May 24, 2019 10:40am sulfamethoxazole 800 mg / trimethoprim 160 mg oral tablet (8 sources) Dihydrofolate Reductase Inhibitor Antibacterial, Sulfonamide Antimicrobial Start: 07-25-2024 End: 01-26-2025 Sulfamethoxazole -Trimethoprim (Bactrim Ds) 800-160 mg tablet Discontinued 1 {tbl} PO TWICE A DAY 14 July 25, 2024 1:00am January 26, 2025 11:57am Start: 06-22-2015 End: 10-20-2017 Sulfamethoxazole-Trimethopri m 1 TABLET tablet Discontinued 1 {tbl} PO TWICE A DAY June 22, 2015 12:00am October 20, 2017 2:34pm Start: 06-22-2015 End: 10-20-2017 take 1 tablet by mouth twice daily Sulfamethoxazole-Trimethoprim Discontinu ed 1 TABLET PO TWICE A DAY June 21, 2015 11:00pm October 20, 2017 1:34pm Problems Active Problems Problem Classification Problem Date Documented Date Episodic/Chronic Acute and chronic tonsillitis (5 sources) Enlarged tonsil; Translations: [Hypertrophy of tonsils] 01-29-2022 Chronic Administrative/socia l admission (10 sources) Patient encounter status; Translations: [Encounter for pre-employment examination] Onset: 10-28-2016 03-06-2019 Episodic Alcohol-related disorders (2 sources) Alcohol intoxication; Translations: [Alcohol abuse with intoxication, unspecified] Onset: 02-23-2014 08-25-2021 Chronic Asthma (9 sources) Asthma; Translations: [Unspecified asthma, uncomplicated] Onset: 01-10-2014 06-07-2018 Chronic Chronic obstructive pulmonary disease and bronchiectasis (17 sources) Health management finding; Translations: [Chronic obstructive pulmonary disease, unspecified] Onset: 02-06-2014 01-11-2019 Chronic Chronic obstructive pulmonary disease and bronchiectasis (1 source) Bronchitis; Translations: [Bronchitis, not specified as acute or chronic] 07-23-2024 Episodic Disorders of lipid metabolism (7 sources) Hyperlipidemia; Translations: [Hyperlipidemia, unspecified] 01-29-2022 Chronic Diverticulosis and diverticulitis (2 sources) Diverticular disease; Translations: [Diverticulosis of intestine, part unspecified, without perforation or abscess without bleeding] Onset: 04-30-2014 08-25-2021 Chronic Esophageal disorders (7 sources) Gastroesophageal reflux disease; Translations: [Gastro-esophageal reflux disease without esophagitis] 01-29-2022 Chronic Essential hypertension (12 sources) Elevated blood pressure; Translations: [Essential (primary) hypertension] 04-12-2021 Chronic Comment on above: CONTROLLED WITH MED Hypertension with complications and secondary hypertension (1 source) Secondary hypertension, unspecified; Translations: [Secondary hypertension] Onset: 09-11-2024 Chronic Inflammation; infection of eye (except that caused by tuberculosis or sexually transmitteddisease) (2 sources) Unspecified acute conjunctivitis, left eye; Translations: [Acute conjunctivitis of left eye] 08-03-2024 Episodic Menopausal disorders (7 sources) Menopausal syndrome; Translations: [Menopausal and female climacteric states] 05-24-2019 Chronic Comment on above: discussed options pl an effexor low dose, discussed watching for side effects of interactions with wellbutrin. would not recommend HRT due to VTE risk and remote menopausal status. Mood disorders (2 sources) Depressive disorder; Translations: [Depression] 10-28-2016 Chronic Other acquired deformities (2 sources) Scoliosis deformity of spine; Translations: [Scoliosis, unspecified] 01-10-2014 Chronic Other and unspecified benign neoplasm (3 sources) History of polyp of colon; Translations: [Personal history of colonic polyps] Onset: 11-02-2016 11-02-2016 Episodic Other eye disorders (1 source) Red eye; Translations: [Other specified disorders of eye and adnexa] 07-22-2024 Episodic Other lower respiratory disease (7 sources) Dyspnea; Translations: [Shortness of breath] 11-14-2022 Episodic Other lower respiratory disease (5 sources) Cough; Translations: [Cough] 11-14-2022 Episodic Other lower respiratory disease (1 source) Shortness of breath; Translations: [Shortness of breath] Onset: 02-01-2025 Episodic Other upper respiratory disease (2 sources) Seasonal allergy; Translations: [Other seasonal allergic rhinitis] Onset: 01-10-2014 12-25-2014 Chronic Other upper respiratory disease (2 sources) Allergic rhinitis; Translations: [Allergic rhinitis, unspecified] Onset: 04-19-2014 12-25-2014 Chronic Other upper respiratory disease (3 sources) Disorder of the larynx; Translations: [Other diseases of larynx] 01-11-2019 Episodic Other upper respiratory disease (7 sources) Pain in throat; Translations: [Pain in throat] 11-12-2021 Episodic Other upper respiratory disease (4 sources) Mass of neck; Translations: [Other diseases of larynx] 01-11-2019 Episodic Other upper respiratory infections (7 sources) Streptococcal sore throat; Translations: [Streptococcal pharyngitis] 11-20-2021 Episodic Residual codes; unclassified (7 sources) Tobacco user; Translations: [Tobacco use] 01-11-2019 Episodic Residual codes; unclassified (1 source) Periorbital edema of left eye; Translations: [Localized edema] 08-03-2024 Episodic Skin and subcutaneous tissue infections (9 sources) Cellulitis of upper limb; Translations: [Cellulitis of right upper limb] Onset: 07-28-2024 02-02-2015 Episodic Spondylosis; intervertebral disc disorders; other back problems (2 sources) Lumbar spondylosis; Translations: [Spondylosis without myelopathy or radiculopathy, lumbar region] Onset: 03-22-2015 10-28-2016 Chronic Substance-related disorders (7 sources) Smoker; Translations: [Nicotine dependence, unspecified, uncomplicated] Onset: 02-06-2014 11-14-2022 Chronic Thyroid disorders (11 sources) Hypothyroidism; Translations: [Hypothyroidism, unspecified] Onset: 03-24-2024 01-11-2019 Chronic Past or Other Problems Problem Classification Problem Date Documented Da te Episodic/Chronic Diabetes mellitus without complication (2 sources) Hyperglycemia; Translations: [Impaired fasting glucose] Onset: 10-28-2016 10-28-2016 Episodic Genitourinary symptoms and ill-defined conditions (2 sources) Blood in urine; Translations: [Hematuria, unspecified] Onset: 04-18-2014 08-25-2021 Episodic Other and unspecified benign neoplasm (1 source) Personal history of colonic polyps; Translations: [Personal history of colonic polyps] Onset: 03-08-2024 Episodic Other diseases of kidney and ureters (2 sources) Cyst of kidney; Translations: [Cyst of kidney, acquired] Onset: 05-17-2014 10-28-2016 Episodic Other eye disorders (1 source) Other specified disorders of eye and adnexa; Translations: [Other specified disorders of eye and adnexa] Onset: 08-25-2024 Episodic Other screening for suspected conditions (not mental disorders or infectious disease) (4 sources) Encounter for screening for malignant neoplasm of respiratory organs; Translations: [Encounter for screening for malignant neoplasm of colon] Onset: 03-08-2024 Episodic Residual codes; unclassified (2 sources) FH: premature coronary heart disease; Translations: [Family history of ischemic heart disease and other diseases of the circulatory system] Onset: 10-28-2016 10-28-2016 Episodic Screening and history of mental health and substance abuse codes (2 sources) Personal history of nicotine dependence; Translations: [Personal history of nicotine dependence] Onset: 09-26-2024 Episodic Spondylosis; intervertebral disc disorders; other back problems (2 sources) Chronic back pain greater than three months duration; Translations: [Dorsalgia, unspecified] Onset: 03-22-2015 10-28-2016 Episodic Sprains and strains (2 sources) Low back strain; Translations: [Strain of muscle, fascia and tendon of lower back, initial encounter] Onset: 03-22-2015 10-28-2016 Episodic Suicide and intentional self-inflicted injury (2 sources) Suicidal thoughts; Translations: [Suicidal ideations] Onset: 01-16-2014 08-25-2021 Episodic Unclassified (5 sources) History Gallbladder Removal 03-30-2022 Unclassified (5 sources) history excision abdominal wall tumor 03-30-2022 Results Test Name Value Interpretation Reference Range Facility Absolute lymphocyte countOrd ered By: Carlito Lewis on 01-26-2025 Lymphocytes Auto (Unsp spec) [#/Vol] 2.68 10*3/uL 0.83-4.51 [facility] Absolute neutrophil countOrd ered By: Carlito Lewis on 01-26-2025 Neutrophils (Bld) [#/Vol] 6.3 10*3/uL 2.0-7.7 [facility] Anion gap in Serum or Plasma Ordered By: Carlito Lewis on 01-26-2025 Anion gap [Moles/Vol] 10 mmol/L 5-[address] [facility] Automated lymphocyte count a s percentage of total leukocytesOrdered By: Carlito Lewis on 01-26-2025 Lymphocytes/100 WBC Auto (Unsp spec) 27.1 % 19-41 [facility] BUN/creatinine ratioOrdered By: Carlito Lewis on 01-26-2025 Urea nitrogen/Creatinine [Mass ratio] 22.9 mg/mg High 10-20 [facility] Basic Metabolic Profile (BMP )on 01-26-2025 BUN/CRE 22.9 RATIO High 10-20 [facility] Comment on above: Performed By: #### L 500.2500, L100.0100 ####[facility] [address] [place], [address] Calcium [Mass/Vol] 9.0 mg/dL Normal 7.6-11.0 [facility] Comment on above: Performed By: #### L 500.2500, L100.0100 ####[facility] [address] [place], [address] Chloride [Moles/Vol] 103 mmol/L Normal 98-108 [facility] Comment on above: Performed By: #### L 500.2500, L100.0100 ####[facility] [address] [place], [address] CO2 [Moles/Vol] 25.3 mmol/L Normal 21.0-32.0 [facility] Comment on above: Performed By: #### L 500.2500, L100.0100 ####[facility] [address] [place], [address] Creatinine [Mass/Vol] 0.61 mg/dL Low 0.70-1.[address] [facility] Comment on above: Performed By: #### L 500.2500, L100.0100 ####[facility] [address] [place], [address] ECRCL 119.78 ml/min Normal 50-250 [facility] Comment on above: Performed By: #### L 500.2500, L100.0100 ####[facility] [address] [place], [address] GAP 10 Normal 5-15 [facility] Comment on above: Performed By: #### L 500.2500, L100.0100 ####[facility] [address] [place], [address] GFR/1.73 sq M.predicted among non-blacks MDRD (S/P/Bld) [Vol rate/Area] 102 mL/min/{1.73_m2} Normal >60 [facility] Comment on above: Result Comment: mL/m in/1.73m2 CKD-EPI Creatinine Equation (2020) Performed By: #### L 500.2500, L100.0100 ####[facility] [address] [place], [address] Glucose [Mass/Vol] 105 mg/dL High 70-99 [facility] Comment on above: Performed By: #### L 500.2500, L100.0100 ####[facility] [address] [place], [address] Potassium [Moles/Vol] 3.5 mmol/L Normal 3.3-5.[address] [facility] Comment on above: Performed By: #### L 500.2500, L100.0100 ####[facility] [address] [place], [address] Sodium [Moles/Vol] 138 mmol/L Normal 133-145 [facility] Comment on above: Performed By: #### L 500.2500, L100.0100 ####[facility] [address] [place], [address] Urea nitrogen [Mass/Vol] 14 mg/dL Normal 4-19 [facility] Comment on above: Performed By: #### L 500.2500, L100.0100 ####[facility] [address] [place], [address] Basophil percentageOrdered B y: Carlito Lewis on 01-26-2025 Basophils/100 WBC (Bld) 0.4 % 0-1 [facility] CBC W/Diff, Automatedon 12-30 Absolute Lymph 2.68 X10 3/uL Normal 0.83-4.51 [facility] Comment on above: Performed By: #### L 500.2500, L100.0100 ####[facility] [address] [place], [address] Absolute Neut 6.3 X10 3/uL Normal 2.0-7.7 [facility] Comment on above: Performed By: #### L 500.2500, L100.0100 ####[facility] [address] [place], [address] Basophils/100 WBC (Bld) 0.4 % Normal 0-1 [facility] Comment on above: Performed By: #### L 500.2500, L100.0100 ####[facility] [address] [place], [address] Eosinophils/100 WBC (Bld) 2.6 % Normal 0-5 [facility] Comment on above: Performed By: #### L 500.2500, L100.0100 ####[facility] [address] [place], [address] Erythrocyte distribution width (RBC) [Ratio] 13.9 % Normal 11.6-14.6 [facility] Comment on above: Performed By: #### L 500.2500, L100.0100 ####[facility] [address] [place], [address] Hematocrit (Bld) [Volume fraction] 41.8 % Normal 37-47 [facility] Comment on above: Performed By: #### L 500.2500, L100.0100 ####[facility] [address] [place], [address] Hemoglobin (Bld) [Mass/Vol] 14.1 g/dL Normal 12.0-15.0 [facility] Comment on above: Performed By: #### L 500.2500, L100.0100 ####[facility] [address] [place], [address] IG% 0.400 Normal 0.0-0.9 [facility] Comment on above: Result Comment: IG% - Immature Granulocytes (promyelocytes, myelocytes and metamyelocytes) > 1% indicates that a LEFT SHIFT is Present. Performed By: #### L 500.2500, L100.0100 ####[facility] [address] [place], [address] Lymphocytes/100 WBC (Bld) 27.1 % Normal 19-41 [facility] Comment on above: Performed By: #### L 500.2500, L100.0100 ####[facility] [address] [place], [address] MCH (RBC) [Entitic mass] 31.0 pg Normal 27.0-32.0 [facility] Comment on above: Performed By: #### L 500.2500, L100.0100 ####[facility] [address] [place], [address] MCHC (RBC) [Mass/Vol] 33.7 g/dL Normal 32-[address] [facility] Comment on above: Performed By: #### L 500.2500, L100.0100 ####[facility] [address] [place], [address] MCV (RBC) [Entitic vol] 91.9 fL Normal 81-99 [facility] Comment on above: Performed By: #### L 500.2500, L100.0100 ####[facility] [address] [place], [address] Monocytes/100 WBC (Bld) 6.1 % Normal 0-10 [facility] Comment on above: Performed By: #### L 500.2500, L100.0100 ####[facility] [address] [place], [address] Neutrophils/100 WBC (Bld) 63.4 % Normal 47-70 [facility] Comment on above: Performed By: #### L 500.2500, L100.0100 ####[facility] [address] [place], [address] Nucleated RBC (Bld) [#/Vol] 0 10*3/uL Normal 0-5 [facility] Comment on above: Performed By: #### L 500.2500, L100.0100 ####[facility] [address] [place], [address] Platelet mean volume (Bld) [Entitic vol] 11.4 fL Normal 6.2-12.0 [facility] Comment on above: Performed By: #### L 500.2500, L100.0100 ####[facility] [address] [place], [address] Platelets (Bld) [#/Vol] 177 10*3/uL Normal 150-450 [facility] Comment on above: Performed By: #### L 500.2500, L100.0100 ####[facility] [address] [place], [address] RBC (Bld) [#/Vol] 4.55 10*6/uL Normal 4.2-5.4 [facility] Comment on above: Performed By: #### L 500.2500, L100.0100 ####[facility] [address] [place], [address] RDW SD 47.5 fl High 35.1-43.9 [facility] Comment on above: Performed By: #### L 500.2500, L100.0100 ####[facility] [address] [place], [address] WBC (Bld) [#/Vol] 9.9 10*3/uL Normal 4.4-11.0 [facility] Comment on above: Performed By: #### L 500.2500, L100.0100 ####[facility] [address] [place], [address] Carbon dioxide, total [Moles /volume] in Central venous bloodOrdered By: Carlito Lewis on 01-26-2025 CO2 [Moles/Vol] 25.3 mmol/L 21.0-32.0 [facility] Chest 1 View (Portable)on Chest 1 View (Portable) [facility] Imaging Services [address] [place] [address] Chest 1 View (Portable) MR#: [id number] Acct: [id number] Name: BOAZ GODLSTEIN Rep #: [id number] : 1965 F 59 From: Jermaine brooks MD PCP: Dr. Hu Ricardo MD Status: REG ER Study: Chest 1 View (Portable) Date of Exam: 01/26/25 Exam# [id number] Ordering Dr: Carlito Lewis DO PROCEDURE: CHEST 1 VIEW (PORTABLE) 01/26/2025 REASON FOR EXAM: COPD Shortness of breath TECHNIQUE: Frontal view of the chest. COMPARISON: Prior study dated July 15, 2024. FINDINGS: Hardware: None Heart: Cardiac and mediastinal contours are stable. Lungs: Hyperinflation. The lungs are clear. Bones: Degenerative changes are identified within the thoracic spine. Other: RAD/Chest 1 View (Portable) IMPRESSION: No Acute Findings. Reading Location: [facility] CC: Dr. Carlito Lewis DO; Dr. 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 Hu Ricardo MD Status:DEP ER Location: ED HPI History of Present Illness Chief Complaint: Shortness of Breath Informant: patient Narrative Narrative: 59-year-old female history of COPD and sleep apnea presenting to the emergency room with throat discomfort. Patient states that over the past several days she has felt the tightness in her throat as well as a cough. Patient denies any rhinorrhea nasal congestion or sputum production. She denies fever. She states she has had symptoms like this in the past. She notes some discomfort in the throat when she swallows. She notes that she does take inhalers at home is unsure of what they are but describes them as orange and blue. She also notes that they are a half a counter on the back of them. What concerned her most this morning was the tightness of the throat. [facility] Medical History Alcohol use Abscessed tooth Post-menopausal Depression Anemia High cholesterol Easy bruising Gastric reflux Smoker Shortness of breath on exertion Hx of colonic polyps Hypertension history excision abdominal wall tumor Blood in stool Acid reflux Laryngeal mass History of abnormal cervical Pap smear History Gallbladder Removal History of benign neoplasm of stomach History of bloody stools Anxiety Hyperthyroidism Scoliosis Asthma Tobacco abuse Hypothyroid COPD (chronic obstructive pulmonary disease) 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 Home Medications ???Medication ???Instructions ???Recorded ???Last Taken ???Type amlodipine 5 mg tablet 5 mg PO DAILY #90 tabs 05/07/22 Rx aspirin 81 mg capsule 81 mg PO DAILY #90 caps 05/07/22 0 01/26/25 Rx atorvastatin 10 mg tablet 10 mg PO QHS #90 tabs 05/07/22 Rx levothyroxine 150 mcg tablet 150 mcg PO DAILY #90 tabs 05/07/22 01/26/25 Rx albuterol sulfate 90 mcg/actuation 2 puff inhalation Q4H PRN 02/22/24 History aerosol inhaler shortness of breath or wheezing prednisone 20 mg tablet See Rx Instructions .Route 5 Unknown Rx .COMPLEX #24 tabs Allergy/AdvReac Type Severity Reaction Status Date / Time cephalexin monohydrate (From Allergy Hives Verified 01/26/25 10:02 Keflex) latex Allergy Rash Verified 01/26/25 10:02 Penicillins (PCN) Allergy Hives Verified 01/26/25 10:02 Family History Grandfather Kidney disease Heart disease Colon cancer Sister Lung cancer Seizures Mother Cancer Diabetes Daughter Hypertension Thyroid disorder Surgical History Hx of colonoscopy History of cholecystectomy History of delivery Social History Smoking Status: Current every day smoker tobacco type: cigarettes second hand exposure: Yes quit status: not considering quitting alcohol intake: never substance use type: does not use caffeine: Yes what type of physical activity do you participate in: none seatbelt use: always do you feel safe at home: Yes additional social history: Employed Self reliance single ROS ROS ED Constitutional Constitutional ED: Denies chills, fever(s) or weight loss Eyes Eyes: Denies change in vision or diplopia ENT ENT ED: Reports sore throat; Denies ear pain or rhinorrhea Cardiovascular Cardiovascular: Denies chest pain, orthopnea, palpitations or racing heartbeat Respiratory/Chest Respiratory/Chest: Reports cough and dyspnea; Denies orthopnea Gastrointestinal Gastrointestinal: Denies abdominal pain, diarrhea, nausea or vomiting Genitourinary Genitourinary ED: Denies dysuria, hematuria or urinary frequency Musculoskeletal Musculoskeletal: Denies arthralgias or myalgias Integumentary Denies abscess or rash Neurologic Neurologic: Denies headache(s) or weakness Psychiatric Psychiatric: Denies anxiety, depression, suicidal ideation or suicidal thoughts Endocrine Endocrinology: Denies polydipsia, polyphagia or polyuria Allergic/Immunologic Allergic/Immunologic ED: Denies mouth swelling, tongue swelling or urticaria EXAM Physical Exam Const Vital Signs: 01/26/25 10:00 01/26/25 10:57 01/26/25 11:09 Temperature 97.9 F Temperature Source Oral Pulse Rate 97 90 Respiratory Rate 26 H 16 Respiratory Effort Short of Breath Labored Respiratory Depth Normal Respiratory Pattern Normal Normal Blood Pressure 152/99 H Blood Pressure Mean 116 Pulse Ox 98 Oxygen (more content not included)... Normal [facility] Eosinophil percentageOrdered By: Carlito Lewis on 01-26-2025 Eosinophils/100 WBC (Bld) 2.6 % 0-5 [facility] Erythrocyte distribution wid th ratioOrdered By: Carlito Lewis on 01-26-2025 Erythrocyte distribution width (RBC) [Ratio] 13.9 % 11.6-14.6 [facility] Erythrocyte distribution wid th standard deviationOrdered By: Carlito Lewis on 01-26-2025 Erythrocyte distribution width (RBC) [Ratio] 47.5 fl High 35.1-43.9 [facility] Glomerular filtration rate ( GFR) estimation/1.73 sq m using serum, plasma, or whole bOrdered By: Carlito Lewis on 01-26-2025 GFR/1.73 sq M.predicted among non-blacks MDRD (S/P/Bld) [Vol rate/Area] 102 mL/min/{1.73_m2} >60 [facility] Comment on above: mL/min/1.73m2 CKD-EP I Creatinine Equation (2020) Hematocrit Auto (Bld) [Volum e fraction]Ordered By: Carlito Lewsi on 01-26-2025 Hematocrit (Bld) [Volume fraction] 41.8 % 37-47 [facility] Hemoglobin measurementOrdere d By: Carlito Lewis on 01-26-2025 Hemoglobin (Bld) [Mass/Vol] 14.1 g/dL 12.0-15.0 [facility] Immature granulocytes/100 WB C Auto (Bld)Ordered By: Carlito Lewis on 01-26-2025 Immature granulocytes/100 WBC (Bld) 0.400 % 0.0-0.9 [facility] Comment on above: IG% - Immature Granu locytes (promyelocytes, myelocytes and metamyelocytes) > 1% indicates that a LEFT SHIFT is Present. MCV (mean corpuscular volume ) determinationOrdered By: Carlito Lewis on 01-26-2025 MCV (RBC) [Entitic vol] 91.9 fL 81-99 [facility] Mean corpuscular hemoglobin (MCH) determinationOrdered By: Carlito Lewis on 01-26-2025 MCH (RBC) [Entitic mass] 31.0 pg 27.0-32.0 [facility] Mean corpuscular hemoglobin concentration (MCHC) determinationOrdered By: Carlito Lewis on 01-26-2025 MCHC (RBC) [Mass/Vol] 33.7 g/dL 32-[address] [facility] Mean platelet volume determi nationOrdered By: Carlito Lewis on 01-26-2025 Platelet mean volume (Bld) [Entitic vol] 11.4 fL 6.2-12.0 [facility] Monocyte percentageOrdered B y: Carlito Lewis on 01-26-2025 Monocytes/100 WBC (Bld) 6.1 % 0-10 [facility] Neutrophil percentageOrdered By: Carlito Lewis on 01-26-2025 Neutrophils/100 WBC (Bld) 63.4 % 47-70 [facility] Nucleated red blood cell per centageOrdered By: Carilto Lewis on 01-26-2025 Nucleated RBC/100 WBC (Bld) [Ratio] 0 % 0-5 [facility] Platelet countOrdered By: Chidi Lewis on 01-26-2025 Platelets (Bld) [#/Vol] 177 10*3/uL 150-450 [facility] Potassium measurement (mass/ volume)Ordered By: Carlito Lewis on 01-26-2025 Potassium (Unsp spec) [Mass/Vol] 3.5 mmol/L 3.3-5.1 [facility] RBC Auto (Bld) [#/Vol]Ordere d By: Carlito Lewis on 01-26-2025 RBC (Bld) [#/Vol] 4.55 10*6/uL 4.2-5.4 [facility] Serum creatinine measurement (mass/volume)Ordered By: Carlito Lewis on 01-26-2025 Creatinine [Mass/Vol] 0.61 mg/dL Low 0.70-1.[address] [facility] Serum glucose measurement (m ass/volume)Ordered By: Carlito Lewis on 01-26-2025 Glucose [Mass/Vol] 105 mg/dL High 70-99 [facility] Serum or plasma calcium gómez urement (mass/volume)Ordered By: Carlito Lewis on 01-26-2025 Calcium [Mass/Vol] 9.0 mg/dL 7.6-11.0 [facility] Serum or plasma urea nitroge n measurement (mass/volume)Ordered By: Carlito Lewis on 01-26-2025 Urea nitrogen [Mass/Vol] 14 mg/dL 4-19 [facility] Sodium levelOrdered By: Rosendo Lewis on 01-26-2025 Sodium [Moles/Vol] 138 mmol/L 133-145 [facility] White blood cell (WBC) count Ordered By: Carlito Lewis on 01-26-2025 WBC (Bld) [#/Vol] 9.9 10*3/uL 4.4-11.0 [facility] CT THORAX SCREENING W/O CONT RASTon 12-25-2024 CT THORAX SCREENING W/O CONTRAST ORIGINAL EXAMINATION: LOW DOSE SCREENING CT OF THE CHEST WITHOUT CONTRAST12/22/2024 4:48 pm TECHNIQUE: Low dose lung cancer screening CT of the chest was performed without the administration of intravenous contrast. Multiplanar reformatted images are provided for review. Automated exposure control, iterative reconstruction, and/or weight based adjustment of the mA/kV was utilized to reduce the radiation dose to as low as reasonably achievable. COMPARISON: None. HISTORY: ORDERING SYSTEM PROVIDED HISTORY: Reason for Exam: PERSONAL HISTORY OF NICOTINE DEPENDENCE former smoker. 20 pack a day/34 years. 34 pack years. sob FINDINGS: The heart is normal in size. The great vessels appear normal in caliber. No lymphadenopathy is visible on this unenhanced exam. No suspicious findings seen in the visualized portion of the abdomen. The abdomen is not evaluated in detail. Emphysema and multifocal atelectasis/scarring seen. Irregular scarring seen in both lung apices. Associated subpleural nodular opacities measure less than 6 mm. A 2 mm right upper lobe nodule seen image 30. A few scattered ground-glass opacities measure less than 10 mm. No pulmonary consolidation is identified. No pneumothorax or pleural effusion. No aggressive osseous lesions visible. Degenerative changes seen in the spine. IMPRESSION: Small lung nodules and ground-glass opacities. For patients with appropriate lung cancer risk, annual CT screening is recommended. Emphysema and scarring Information below is for Lung nodule tracking purposes: Nodule: S3 NS1 Other Findings: None Change: Na Recall : 1yr scr Recall Type: LDCT LungRads: 2 Interpreted by: Wang Gallo MD Preliminary Report By: Wang Gallo MD Electronically signed By Wang Gallo MD Dictated Date: 12/25/2024 9:38:17 AM Prelim Date: 12/25/2024 9:44:49 AM Sign Date: 12/25/2024 9:44:49 AM Ordering Provider: CLARA Moreira [facility] Comprehensive metabolic 2000 panelon 09-11-2024 Albumin [Mass/Vol] 4.3 g/dL Normal 3.9-4.9 [facility] Comment on above: Order Comment: Andrés marcelo Type: BLOOD SPECIMEN Ordering Facility: [facility] Address: [facility] [place] [address] Performed By: #### 3 051-0, 16111-2, 3024-7, 76071-3 #### [facility] CLIA [id number] [address] [place] [address] [place] ALP [Catalytic activity/Vol] 132 U/L High 34-123 [facility] Comment on above: Order Comment: Andrés marcelo Type: BLOOD SPECIMEN Ordering Facility: [facility] Address: [facility] [place] [address] Performed By: #### 3 051-0, 02177-4, 3024-7, 88419-7 #### [facility] CLIA [id number] [address] [place] [address] [place] ALT [Catalytic activity/Vol] 14 U/L Normal 7-38 [facility] Comment on above: Order Comment: Andrés marcelo Type: BLOOD SPECIMEN Ordering Facility: [facility] Address: [facility] [place] [address] Performed By: #### 3 051-0, 30977-2, 3024-7, 09959-6 #### [facility] CLIA [id number] [address] [place], [place] [address] [place] Anion gap [Moles/Vol] 11 mmol/L Normal 8-15 [facility] Comment on above: Order Comment: Speci men Type: BLOOD SPECIMEN Ordering Facility: [facility] Address: [address], [place] [address] Performed By: #### 3 051-0, 79038-1, 3024-7, 27157-3 #### [facility] CLIA [id number] [address] [place] [address] [place] AST [Catalytic activity/Vol] 16 U/L Normal 13-35 [facility] Comment on above: Order Comment: Speci men Type: BLOOD SPECIMEN Ordering Facility: [facility] Address: [address], [place] [address] Performed By: #### 3 051-0, 24268-8, 3024-7, 07757-6 #### [facility] CLIA [id number] [address] [place] [address] [place] Bilirubin [Mass/Vol] 0.3 mg/dL Normal 0.2-1.3 [facility] Comment on above: Order Comment: Speci men Type: BLOOD SPECIMEN Ordering Facility: [facility] Address: [address], [place] [address] Performed By: #### 3 051-0, 17392-9, 3024-7, 98347-8 #### [facility] CLIA [id number] [address] [place] [address] [place] Calcium [Mass/Vol] 9.1 mg/dL Normal 8.5-10.2 [facility] Comment on above: Order Comment: Speci men Type: BLOOD SPECIMEN Ordering Facility: [facility] Address: [address], [place] [address] Performed By: #### 3 051-0, 92226-2, 3024-7, 37263-0 #### [facility] CLIA [id number] [address] [place], [place] [address] [place] Chloride [Moles/Vol] 104 mmol/L Normal 98-107 [facility] Comment on above: Order Comment: Speci men Type: BLOOD SPECIMEN Ordering Facility: [facility]: [facility] [place] [address] Performed By: #### 3 051-0, 47470-2, 3024-7, 77160-1 #### [facility] CLIA [id number] [address] [place], [place] [address] [place] CO2 [Moles/Vol] 26 mmol/L Normal 22-30 [facility] Comment on above: Order Comment: Speci men Type: BLOOD SPECIMEN Ordering Facility: [facility] Address: [address] [place] [address], [place] [id number] Performed By: #### 3 051-0, 94635-9, 3024-7, 58776-0 #### [facility] CLIA [id number] [address] [place] [address] [place] Creatinine [Mass/Vol] 0.55 mg/dL Low 0.58-0.96 [facility] Comment on above: Order Comment: Speci men Type: BLOOD SPECIMEN Ordering Facility: [facility] Address: [address] [place], [place] [id number] Performed By: #### 3 051-0, 32067-5, 3024-7, 96112-7 #### [facility] CLIA [id number] [address] [place], [place] [address] [place] Creatinine and Glomerular filtration rate.predicted panel (S/P/Bld) 104 mL/min/1.73m??? Normal >=60 [facility] Comment on above: Order Comment: Speci men Type: BLOOD SPECIMEN Ordering Facility: [facility] Address: [address] [place] [address], [place] [address] Result Comment: Amanda mated Glomerular Filtration Rate (eGFR) is calculated using the 2020 CKD-EPI creatinine equation. This equation utilizes serum creatinine, sex, and age as parameters. The creatinine assay has traceable calibration to isotope dilution-mass spectrometry. Refer to KDIGO guidelines for clinical interpretation. In patients with unstable renal function, e.g. those with acute kidney injury, the eGFR may not accurately reflect actual GFR. Performed By: #### 3 051-0, 83092-0, 3023-7, 48358-6 #### [facility] CLIA [id number] [address] [address] [place] Glucose [Mass/Vol] 80 mg/dL Normal 74-99 [facility] Comment on above: Order Comment: Andrés marcelo Type: BLOOD SPECIMEN Ordering Facility: [facility] Address: [address], [place] [address] Result Comment: The [place] [employer] Association (ADA) provides guidance for cutoff values for fasting glucose and random glucose. The ADA defines fasting as no caloric intake for at least 8 hours. Fasting plasma glucose results between 100 to 125 mg/dL indicate increased risk for diabetes (prediabetes). Fasting plasma glucose results greater than or equal to 126 mg/dL meet the criteria for diagnosis of diabetes. In the absence of unequivocal hyperglycemia, results should be confirmed by repeat testing. In a patient with classic symptoms of hyperglycemia or hyperglycemic crisis, random plasma glucose results greater than or equal to 200 mg/dL meet the criteria for diagnosis of diabetes. Reference: Standards of Medical Care in Diabetes 2016, [place] [employer]. Diabetes Care. 2016.39(Suppl 1). Performed By: #### 3 051-0, 01658-6, 3023-7, 82382-8 #### [facility] CLIA [id number] [address] [address] [place] Potassium [Moles/Vol] 3.5 mmol/L Low 3.7-5.1 [facility] Comment on above: Order Comment: Andrés marcelo Type: BLOOD SPECIMEN Ordering Facility: [facility] Address: [address], [place] [id number] Performed By: #### 3 051-0, 53357-3, 3024-7, 72165-8 #### [facility] CLIA [id number] [address] [address] [place] Protein [Mass/Vol] 7.4 g/dL Normal 6.3-8.0 [facility] [facility] Comment on above: Order Comment: Speci men Type: BLOOD SPECIMEN Ordering Facility: [facility] Address: [facility] [address], [place] [address] Performed By: #### 3 051-0, 11327-2, 302-7, 14452-2 #### [facility] CLIA [id number] [address] [place], [place] [id number] [place] Sodium [Moles/Vol] 141 mmol/L Normal 136-144 [facility] Comment on above: Order Comment: Speci men Type: BLOOD SPECIMEN Ordering Facility: [facility] Address: [facility] [address], [place] [address] Performed By: #### 3 051-0, 55914-6, 3023-7, 64110-3 #### [facility] CLIA [id number] [address] [place], [place] [id number] [place] Urea nitrogen [Mass/Vol] 13 mg/dL Normal 7-21 [facility] Comment on above: Order Comment: Speci men Type: BLOOD SPECIMEN Ordering Facility: [facility] Address: [facility] [address], [place] [address] Performed By: #### 3 051-0, 95551-1, 302-7, 60659-0 #### [facility] CLIA [id number] [address] [place] [address] [place] Lipid 1996 panelon 5 Cholesterol [Mass/Vol] 146 mg/dL Normal <200 [facility] Comment on above: Order Comment: Speci men Type: BLOOD SPECIMEN Ordering Facility: [facility] Address: [facility] [address], [place] [address] Result Comment: <200 mg/dL, Desirable 200-239 mg/dL, Borderline high >239 mg/dL, High Performed By: #### 3 051-0, 14061-4, 3024-7, 60479-8 #### [facility] CLIA [id number] [address] [place] Cholesterol in HDL [Mass/Vol] 56 mg/dL Normal >39 [facility] Comment on above: Order Comment: Andrés marcelo Type: BLOOD SPECIMEN Ordering Facility: [facility], [place] [address] Result Comment: 40-5 9 mg/dL, Acceptable >59 mg/dL, High: Negative risk factor for coronary heart disease <40 mg/dL, Low: Positive risk factor for coronary heart disease Performed By: #### 3 051-0, 04610-5, 3024-7, 28641-9 #### [facility] CLIA [id number] [address] Cholesterol in LDL [Mass/Vol] 65 mg/dL Normal <100 [facility] Comment on above: Order Comment: Andrés marcelo Type: BLOOD SPECIMEN Ordering Facility: [facility] Address: [facility] , [place] [address] Result Comment: <100 mg/dL, Optimal 100-129 mg/dL, Near optimal/above optimal 130-159 mg/dL, Borderline high 160-189 mg/dL, High >189 mg/dL, Very high Secondary prevention optimal LDL Cholesterol levels are recommended to be < 70 mg/dL Performed By: #### 3 051-0, 86277-1, 3024-7, 02333-5 #### [facility] CLIA [id number] [address] [place] Cholesterol in LDL/Cholesterol in HDL [Mass ratio] 1.16 {ratio} Normal <2.54 [facility] Comment on above: Order Comment: Andrés marcelo Type: BLOOD SPECIMEN Ordering Facility: [facility] Address: [address], [place] [address] Result Comment: Irwin haynes: 1. National Cholesterol Education Program ATP III Guideline At-A-Glance Quick Desk Reference: National Heart, Lung, and Blood Lonetree. National Institutes of Health. 2001: NIH Publication No. 01-3305. 2. An International Atherosclerosis Society position paper: global recommendations for the management of dyslipidemia: executive summary, Atherosclerosis. 2014: 232(2):410-413. Performed By: #### 3 051-0, 50780-1, 3023-7, 60158-3 #### [facility] CLIA [id number] [address] [place] [address] [place] Cholesterol in VLDL [Mass/Vol] 25 mg/dL Normal <30 [facility] Comment on above: Order Comment: Andrés men Type: BLOOD SPECIMEN Ordering Facility: [facility] Address: [facility] [address], [place] [address] Performed By: #### 3 051-0, 39080-8, 3023-7, 34958-7 #### [facility] CLIA [id number] [address] [place] [address] [place] Cholesterol non HDL [Mass/Vol] 90 mg/dL Normal <130 [facility] Comment on above: Order Comment: Andrés marcelo Type: BLOOD SPECIMEN Ordering Facility: [facility] Address: [facility] [address], [place] [address] Result Comment: <130 mg/dL, Optimal 130-159 mg/dL, Near optimal/above optimal 160-189 mg/dL, Borderline high 190-219 mg/dL, High >219 mg/dL, Very high Secondary prevention optimal non HDL Cholesterol levels are recommended to be <100 mg/dL Performed By: #### 3 051-0, 49246-4, 3024-7, 32850-3 #### [facility] CLIA [id number] [address] [address] [place] Cholesterol.total/Choles terol in HDL [Mass ratio] 2.61 {ratio} Normal <5.10 [facility] Comment on above: Order Comment: Speci men Type: BLOOD SPECIMEN Ordering Facility: [facility] Address: [address], [place] [address] Performed By: #### 3 051-0, 98876-0, 3024-7, 57022-2 #### [facility] CLIA [id number] [address] [place] [address] [place] FASTING TIME 12 hrs Normal [facility] Comment on above: Order Comment: Speci men Type: BLOOD SPECIMEN Ordering Facility: [facility] Address: [address], [place] [address] Performed By: #### 3 051-0, 58080-8, 3023-7, 69156-0 #### [facility] CLIA [id number] [address] [place] [address] [place] Triglyceride [Mass/Vol] 126 mg/dL Normal <150 [facility] Comment on above: Order Comment: Speci men Type: BLOOD SPECIMEN Ordering Facility: [facility] Address: [address], [place] [address] Result Comment: <150 mg/dL, Normal 150-199 mg/dL, Borderline high 200-499 mg/dL, High >499 mg/dL, Very high Performed By: #### 3 051-0, 99418-0, 3023-7, 94129-8 #### [facility] CLIA [id number] [address] [place] [address] [place] [facility]19 25 Free T3 [Mass/Vol] 2.9 pg/mL Normal 2.3-4.1 [facility] Comment on above: Order Comment: Speci men Type: BLOOD SPECIMEN Ordering Facility: [facility] Address: [address], [place] [address] Performed By: #### 3 051-0, 96543-5, 302-7, 91280-0 #### [facility] CLIA [id number] [facility] [place] [id number] [place] T4 Free SerPl-mCncon 025 Free T4 [Mass/Vol] 1.3 ng/dL Normal 0.9-1.7 [facility] Comment on above: Order Comment: Speci men Type: BLOOD SPECIMEN Ordering Facility: [facility] Address: [address], [place] [address] Performed By: #### 3 051-0, 56020-9, 3024-7, 73731-8 #### [facility] CLIA [id number] [address] [place] [address] [place] TSH SerPl-aCncon 09-11-2024 TSH Qn 2.420 m[IU]/L Normal 0.270-4.200 [facility] Comment on above: Order Comment: Speci men Type: BLOOD SPECIMEN Ordering Facility: [facility] Address: [address], [place] [address] Performed By: #### 3 016-3 #### [facility] CLIA [id number] [address] [place] [address] [place] CBC W/Diff, Automatedon 11-2 Absolute Lymph 2.19 X10 3/uL Normal 0.83-4.51 [facility] Comment on above: Performed By: #### L 100.0100 ####[facility] [address] [place], [address] Absolute Neut 5.1 X10 3/uL Normal 2.0-7.7 [facility] Comment on above: Performed By: #### L 100.0100 ####[facility] [address] [place], [address] Basophils/100 WBC (Bld) 0.6 % Normal 0-1 [facility] Comment on above: Performed By: #### L 100.0100 ####[facility] [address] [place], [address] Eosinophils/100 WBC (Bld) 1.0 % Normal 0-5 [facility] Comment on above: Performed By: #### L 100.0100 ####[facility] [address] [place], [address] Erythrocyte distribution width (RBC) [Ratio] 13.3 % Normal 11.6-14.6 [facility] Comment on above: Performed By: #### L 100.0100 ####[facility] [address] [place], [address] Hematocrit (Bld) [Volume fraction] 43.3 % Normal 37-47 [facility] Comment on above: Performed By: #### L 100.0100 ####[facility] [address] [place], [address] Hemoglobin (Bld) [Mass/Vol] 14.6 g/dL Normal 12.0-15.0 [facility] Comment on above: Performed By: #### L 100.0100 ####[facility] [address] [place], [address] IG% 0.500 Normal 0.0-0.9 [facility] Comment on above: Result Comment: IG% - Immature Granulocytes (promyelocytes, myelocytes and metamyelocytes) > 1% indicates that a LEFT SHIFT is Present. Performed By: #### L 100.0100 ####[facility] [address] [place], [address] Lymphocytes/100 WBC (Bld) 26.6 % Normal 19-41 [facility] Comment on above: Performed By: #### L 100.0100 ####[facility] [address] [place], [address] MCH (RBC) [Entitic mass] 31.2 pg Normal 27.0-32.0 [facility] Comment on above: Performed By: #### L 100.0100 ####[facility] [address] [place], [address] MCHC (RBC) [Mass/Vol] 33.7 g/dL Normal 32-[address] [facility] Comment on above: Performed By: #### L 100.0100 ####[facility] [address] [place], [address] MCV (RBC) [Entitic vol] 92.5 fL Normal 81-99 [facility] Comment on above: Performed By: #### L 100.0100 ####[facility] [address] [place], [address] Monocytes/100 WBC (Bld) 9.5 % Normal 0-10 [facility] Comment on above: Performed By: #### L 100.0100 ####[facility] [address] [place], [address] Neutrophils/100 WBC (Bld) 61.8 % Normal 47-70 [facility] Comment on above: Performed By: #### L 100.0100 ####[facility] [address] [place], [address] Nucleated RBC (Bld) [#/Vol] 0 10*3/uL Normal 0-5 [facility] Comment on above: Performed By: #### L 100.0100 ####[facility] [address] [place], [address] Platelet mean volume (Bld) [Entitic vol] 10.8 fL Normal 6.2-12.0 [facility] Comment on above: Performed By: #### L 100.0100 ####[facility] [address] [place], [address] Platelets (Bld) [#/Vol] 176 10*3/uL Normal 150-450 [facility] Comment on above: Performed By: #### L 100.0100 ####[facility] [address] [place], [address] RBC (Bld) [#/Vol] 4.68 10*6/uL Normal 4.2-5.4 [facility] Comment on above: Performed By: #### L 100.0100 ####[facility] [address] [place], [address] RDW SD 45.5 fl High 35.1-43.9 [facility] Comment on above: Performed By: #### L 100.0100 ####[facility] [address] [place], [address] WBC (Bld) [#/Vol] 8.2 10*3/uL Normal 4.4-11.0 [facility] Comment on above: Performed By: #### L 100.0100 ####[facility] [address] [place], [address] Emergency Department Summary on 07-25-2024 Emergency Department Summary [facility] Medical Records Department [address] [place] [address] Emergency Department Summary 07/25/24 MR#: [id number] Acct: [id number] Name: BOAZ GOLDSTEIN Rep #: [id number] : 1965 58 From: Luther Williamson MD PCP: Dr. Hu Ricardo MD Status:REG ER Location: ED HPI History of Present Illness Chief Complaint: Eye Problem Informant: patient and other (ophthalmology) Onset/Context/Timing Location: Left Eye Onset: Days (2-3) Context: Gradual Onset Timing: Continuous Worsened by: nothing Relieved by: nothing including abx topical Associated Symptoms Associated Symptoms - Eyes: Eyelid swelling, Itching and Redness; Negative for Pain or Photophobia Narrative Narrative: 58-year-old female to 3 days gradual onset swelling redness itching left eye. No pain. No vision changes, uses eyeglasses. No fevers, chills, systemic symptoms. She was seen here this morning for this, thought to have conjunctivitis and she has no pain, but given the degree of symptoms was put on oral and a different topical antibiotic anyway and referred to ophthalmology. She saw Dr. Krishna today, who agrees with all this but sent her back here to have a CT scan to rule out orbital cellulitis/postsepta l involvement given the amount of swelling that she has. She has no new symptoms. She was doing erythromycin topically prior to being seen here this morning and it was not helping which is what prompted her visit here in the first place. She is not a diabetic. She denies having anything in her eye or an exposure that would have been an obvious etiology of this. She denies any involvement in her right eye. She still has no pain. [facility] Medical History Alcohol use Abscessed tooth Post-menopausal Depression Anemia High cholesterol Easy bruising Gastric reflux Smoker Shortness of breath on exertion Hx of colonic polyps Hypertension history excision abdominal wall tumor Blood in stool Acid reflux Laryngeal mass History of abnormal cervical Pap smear History Gallbladder Removal History of benign neoplasm of stomach History of bloody stools Anxiety Hyperthyroidism Scoliosis Asthma Tobacco abuse Hypothyroid COPD (chronic obstructive pulmonary disease) 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 Home Medications ???Medication ???Instructions ???Recorded ???Last Taken ???Type amlodipine 5 mg tablet 5 mg PO DAILY #90 tabs 05/07/22 02/22/24 Rx aspirin 81 mg capsule 81 mg PO DAILY #90 caps 05/07/22 02/22/24 Rx atorvastatin 10 mg tablet 10 mg PO QHS #90 tabs 05/07/22 02/22/24 Rx levothyroxine 150 mcg tablet 150 mcg PO DAILY #90 tabs 05/07/22 02/22/24 Rx albuterol sulfate 90 mcg/actuation 2 puff inhalation Q4H PRN PRN 02/17/24 02/22/24 History aerosol inhaler shortness of breath or wheezing albuterol sulfate 90 mcg/actuation 2 puff inhalation Q4H PRN PRN 07/15/24 Unknown Rx aerosol inhaler (Ventolin HFA) Wheezing ##1 doxycycline hyclate 100 mg tablet 100 mg PO BID 07/15/24 Unknown History methylprednisolone 4 mg tablets in 4 mg PO UD ##1 07/15/24 Unknown Rx a dose pack prednisone 10 mg tablet 40 mg PO DAILY 07/15/24 Unknown History ciprofloxacin HCl 0.3 % eye drops 2 drp EACH EYE Q6H 7 days #10 mL 07/25/24 Unknown Rx sulfamethoxazole 800 1 tab PO BID 7 days #14 tabs 07/25/24 Unknown Rx mg-trimethoprim 160 mg tablet (Bactrim DS) Allergy/AdvReac Type Severity Reaction Status Date / Time cephalexin monohydrate (From Allergy Hives Verified 07/25/24 16:52 Keflex) latex Allergy Rash Verified 07/25/24 16:52 Penicillins (PCN) Allergy Hives Verified 07/25/24 16:52 Family History Grandfather Kidney disease Heart disease Colon cancer Sister Lung cancer Seizures Mother Cancer Diabetes Daughter Hypertension Thyroid disorder Surgical History Hx of colonoscopy History of cholecystectomy History of delivery Social History Smoking Status: Current every day smoker tobacco type: cigarettes second hand exposure: Yes quit status: not considering quitting alcohol intake: never substance use type: does not use caffeine: Yes what type of physical activity do you participate in: none seatbelt use: always do you feel safe at home: Yes additional social history: Employed Self reliance single ROS ROS ED Constitutional Constitutional ED: Denies chills or fever(s) Eyes Eyes: Reports other Details: Redness and swelling in the left thigh as well as around it. Patient states it started in the lids. ; Denies blurry vision, change in vision or diplopia ENT ENT ED: Denies ear pain or sore throat Card (more content not included)... Normal [facility] Emergency Department Summary [facility] Medical Records Department [address] [place] [address] Emergency Department Summary 07/25/24 MR#: [id number] Acct: [id number] Name: BOAZ GOLDSTEIN Rep #: [id number] : 1965 58 From: Emiliano Cisse DO PCP: Dr. Hu Ricardo MD Status:REG ER Location: ED HPI History of Present Illness Chief Complaint: Eye Problem [facility] Medical History Alcohol use Abscessed tooth Post-menopausal Depression Anemia High cholesterol Easy bruising Gastric reflux Smoker Shortness of breath on exertion Hx of colonic polyps Hypertension history excision abdominal wall tumor Blood in stool Acid reflux Laryngeal mass History of abnormal cervical Pap smear History Gallbladder Removal History of benign neoplasm of stomach History of bloody stools Anxiety Hyperthyroidism Scoliosis Asthma Tobacco abuse Hypothyroid COPD (chronic obstructive pulmonary disease) 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 Home Medications ???Medication ???Instructions ???Recorded ???Last Taken ???Type amlodipine 5 mg tablet 5 mg PO DAILY #90 tabs 05/07/22 02/22/24 Rx aspirin 81 mg capsule 81 mg PO DAILY #90 caps 05/07/22 02/22/24 Rx atorvastatin 10 mg tablet 10 mg PO QHS #90 tabs 05/07/22 02/22/24 Rx levothyroxine 150 mcg tablet 150 mcg PO DAILY #90 tabs 05/07/22 02/22/24 Rx albuterol sulfate 90 mcg/actuation 2 puff inhalation Q4H PRN PRN 02/17/24 02/22/24 History aerosol inhaler shortness of breath or wheezing albuterol sulfate 90 mcg/actuation 2 puff inhalation Q4H PRN PRN 07/15/24 Unknown Rx aerosol inhaler (Ventolin HFA) Wheezing ##1 doxycycline hyclate 100 mg tablet 100 mg PO BID 07/15/24 Unknown History methylprednisolone 4 mg tablets in 4 mg PO UD ##1 07/15/24 Unknown Rx a dose pack prednisone 10 mg tablet 40 mg PO DAILY 07/15/24 Unknown History Allergy/AdvReac Type Severity Reaction Status Date / Time cephalexin monohydrate (From Allergy Hives Verified 07/25/24 10:37 Keflex) latex Allergy Rash Verified 07/25/24 10:37 Penicillins (PCN) Allergy Hives Verified 07/25/24 10:37 Family History Grandfather Kidney disease Heart disease Colon cancer Sister Lung cancer Seizures Mother Cancer Diabetes Daughter Hypertension Thyroid disorder Surgical History Hx of colonoscopy History of cholecystectomy History of delivery Social History Smoking Status: Current every day smoker tobacco type: cigarettes second hand exposure: Yes quit status: not considering quitting alcohol intake: never substance use type: does not use caffeine: Yes what type of physical activity do you participate in: none seatbelt use: always do you feel safe at home: Yes additional social 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 Physical Exam Const Vital Signs: 07/25/24 10:35 Temperature 97.1 F L Temperature Source Temporal Pulse Rate 79 Respiratory Rate 14 Blood Pressure 134/78 H Blood Pressure Mean 96 Pulse Ox 98 Oxygen Delivery Method Room Air MDM MDM MDM Narrative Medical decision making narrative: HISTORY OF PRESENT ILLNESS: 58-year-old female here with swelling, and redness to left eye. Endorses 5 days of left eye redness and swelling. No pain notes irritation and itchiness. No she went to urgent care received erythromycin ointment but has not found any relief. Denies headache, fever. Denies decreased visual acuity. Not wear contacts or glasses. REVIEW OF SYSTEMS: Pertinent positives: Eye redness, eye irritation Pertinent negatives: Headache, painful eye movement PHYSICAL EXAM: Nursing triage notes reviewed, Vital signs reviewed Constitutional: please see mdm HENT: MMM Eyes: Visual acuity 20/40 OD, 20/50 OS, fluorescein staining did not show any evidence of globe rupture or corneal abrasion. Pupils equal round and reactive to light, Extraocular muscles intact, no pain with extraocular muscle movements, no proptosis, there is erythema noted along the upper eyelid and lower eyelid. There is no sign of hordoelum dacryocystitis, stye Neck: No stridor, no JVD, full neck ROM Skin: Erythematous area noted over the upper and lower eyelids. MEDICAL DECISION MAKING: Chief Complaint: Eye redness, eye irritation External records reviewed: Reviewed prior visits Factors affecting care: COPD MDM Narrative: Patient was hemodynamically stable, afebrile and nontoxic-appearing. Exam consistent with likely conjunctivitis versus preseptal cellulitis. Will give ciprofloxacin drops and oral antibiotics to cover both eventualities. Flu (more content not included)... Normal [facility] Sinus/Facial Bone WITH Contr ason 07-25-2024 Sinus/Facial Bone WITH Contras [facility] Imaging Services [address] [place] [address] Sinus/Facial Bone WITH Contras MR#: [id number] Acct: [id number] Name: BOAZ GOLDSTEIN Rep #: [id number] : 1965 F 58 From: Shahid Hunt DO PCP: Dr. Hu Ricardo MD Status: REG ER Study: Sinus/Facial Bone WITH Contras Date of Exam: 09/24/23 Exam# [id number] Ordering Dr: Luther Williamson MD [id number] INDICATION: swelling left eye, eval orbital/postsept process EXAMINATION: CT FACIAL BONES - CT Maxillofacial W/ Contrast Injection TECHNIQUE: Helically acquired images were obtained of the facial bones. A radiation dose optimization technique was used for this scan. The protocol utilizes one or more of the following dose reduction techniques: automated exposure control, adjustment of mA and/or kV according to patient size,and/or use of iterative reconstruction technique. IV Contrast dosage and agent: None. RADIATION DOSAGE (If Supplied By Facility): CTDIvol = ( 29.38 ) mGy, DLP = ( 591.53 ) mGycm COMPARISON: ____ FINDINGS: SOFT TISSUES: Left periorbital and facial subcutaneous swelling. No discrete fluid collections. VISUALIZED PARANASAL SINUSES: Clear. VISUALIZED MASTOID AIR CELLS: Clear. FACIAL BONES, MANDIBLE AND TMJs: No displaced facial bone fracture. No lytic or blastic abnormality. VISUALIZED DENTITION: No periodontal osseous erosion. ORBITAL CONTENTS: Both globes, extraocular muscles and retrobulbar fat appear unremarkable. CT/Sinus/Facial Bone WITH Contras IMPRESSION: Left periorbital and facial subcutaneous swelling. Electronically Signed: Shahid Hunt DO at 0:20 EST Reading Location ID and State: [facility] / [place] Tel [phone], Service support , CC: Dr. Luther Williamson MD; Dr. 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 Does have some itching. Did use some eyedrops this morning this did help. Denies any eye pain flashes light or floaters visual changes or drainage. No known sick contacts. Denies any fevers. Past medical history prescription medications allergies reviewed. .Patient presents with: Eye Problem: left eye itching x this am PAST MEDICAL HISTORY Diagnosis Date Asthma Asthma, mild intermittent 01/10/2014 Chronic obstructive pulmonary disease (COPD) (HCC) Depression Elbow fracture 02/2015 left GERD (gastroesophageal reflux disease) Hyperlipidemia Hypothyroidism Kidney disease Scoliosis Snoring PAST SURGICAL HISTORY Procedure Laterality Date DELIVERY ONLY , low transverse x 2 COLONOSCOPY 06/08/2014 + polyps, repeat 5 yrs COLSC FLX W/REMOVAL LESION BY HOT BX FORCEPS 12/15/2016 adenomatous polyp - 3 year follow up EGD TRANSORAL BIOPSY SINGLE/MULTIPLE 12/15/2016 reflux esophagitis LAPS SURG CHOLECYSTECTOMY W/CHOLANGIOGRAPHY 01/15/15 normal IOC PAST SURGICAL 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 atorvastatin (LIPITOR) 10 mg tablet Take 10 mg by mouth daily at bedtime. levothyroxine (SYNTHROID) 150 mcg tablet Take 150 mcg by mouth once daily. VENTOLIN HFA 90 mcg/actuation inhaler INHALE TWO(2) PUFFS BY MOUTH EVERY 6 HOURS NEEDED aspirin, enteric coated (ASPIRIN, ENTERIC COATED) 81 mg EC tablet TAKE 1 TABLET BY MOUTH ONCE DAILY. loratadine (CLARITIN) 10 mg tablet Take 1 tablet by mouth once daily. (Patient not taking: Reported on 07/09/2024) levothyroxine (SYNTHROID) 137 mcg tablet TAKE 1 TABLET BY MOUTH ONCE DAILY. (Patient not taking: Reported on 07/09/2024) budesonide-formotero l (SYMBICORT) 160-4.5 mcg/actuation inhaler Inhale 2 Puffs as instructed twice daily. (Patient not taking: Reported on 07/09/2024) FAMILY HISTORY Problem Relation Age of Onset Diabetes Mother Cancer Mother lung Hypertension Mother Cancer Maternal Grandmother lung Cancer Sister cervical Seizures Sister Coronary Artery Disease Father had 3 DE's Diabetes Sister Thyroid Child daughter Social History Tobacco Use Smoking status: Light Smoker Types: Cigarettes Smokeless tobacco: Never Tobacco comments: 2 cigarette per day Substance Use Topics Alcohol use: No Comment: occasionally Drug use: No BP 124/80 Pulse 94 Temp 36.5 ?C (97.7 ?F) Resp 16 Wt 98 kg (216 lb 0.8 oz) SpO2 97% BMI 33.91 kg/m? Review of Systems Constitutional: Negative for chills, fever and malaise/fatigue. HENT: Negative for congestion, ear discharge, ear pain, sinus pain and sore throat. Eyes: Positive for discharge and redness. Negative for blurred vision, double vision, photophobia and pain. Respiratory: Negative for cough, hemoptysis, sputum production, shortness of breath, wheezing and stridor. Cardiovascular: Negative for chest pain. Gastrointestinal: Negative for abdominal pain, diarrhea, nausea and vomiting. Musculoskeletal: Negative for myalgias. Skin: Negative for itching and rash. Neurological: Negative for dizziness and headaches. Objective Physical Exam Constitutional: General: She is not in acute distress. Appearance: She is not diaphoretic. HENT: Head: Normocephalic. Jaw: No trismus, tenderness, swelling or pain on movement. Mouth/Throat: Mouth: Mucous membranes are moist. Pharynx: Oropharynx is clear. Uvula midline. No pharyngeal swelling, oropharyngeal exudate, posterior oropharyngeal erythema or uvula swelling. Eyes: General: Lids are normal. Lids are everted, no foreign bodies appreciated. Vision grossly intact. Right eye: No foreign body, discharge or hordeolum. Left eye: Discharge present.No foreign body or hordeolum. Conjunctiva/sclera: Right eye: Right conjunctiva is not injected. No chemosis, exudate or hemorrhage. Left eye: Left conjunctiva is injected. No chemosis, exudate or hemorrhage. Pupils: Pupils are equal, round, and reactive to light. Comments: Limbus clear. Visual acuity unchanged. No evidence of orbital or periorbital cellulitis. Cardiovascular: Rate and Rhythm: Normal rate and regular rhythm. Heart sounds: Normal heart sounds. Pulmonary: Effort: Pulmonar (more content not included)... Normal [facility] 12 Lead EKGon 07-15-2024 12 Lead EKG [facility] Cardiovascular Services [address] [place] [address] 12 Lead EKG 07/15/24 1003 MR#: [id number] Acct: [id number] Name: BOAZ GOLDSTEIN Rep #: [id number] : 1965 58 From: Nish Sterling MD Attending Dr: Status: DEP ER Ordering Dr: Jamal Thompson DO Date: 07/15/24 Location: ED Sex: F C Admitted: Test Reason : SOB Blood Pressure : */* mmHG Vent. Rate : 76 BPM Atrial Rate : 76 BPM P-R Int : 180 ms QRS Dur : 80 ms QT Int : 358 ms P-R-T Axes : 32 46 47 degrees QTcB Int : 402 ms Normal sinus rhythm Normal ECG Confirmed by NISH STERLING MD ([id number]), continuity editor BETHEL FU ([id number]) on 07/17/2024 8:10:57 AM Referred By: SAMANTHA Confirmed By: NISH STERLING MD 07/17/24 0810 Date Nihs Sterling MD CC: Dr. Jamal Thompson, DO; Dr. Hu Ricardo MD Signed Normal [facility] BNP,B-Type NATRIURETIC PEPTI Ever 07-15-2024 Natriuretic peptide B (Bld) [Mass/Vol] 32.2 pg/mL Normal 0-100 [facility] Comment on above: Performed By: #### L 503.6620, L500.2500, L501.5425, L100.0100 #### [facility] [address] [place], [address] Basic Metabolic Profile (BMP )on 07-15-2024 BUN/CRE 38.7 RATIO High 10-20 [facility] Comment on above: Order Comment: 1 Y Performed By: #### L 503.6620, L500.2500, L501.5425, L100.0100 #### [facility] [address] [place], [address] CA,Total 8.7 mg/dL Normal 8.5-10.1 [facility] Comment on above: Order Comment: 1 Y Performed By: #### L 503.6620, L500.2500, L501.5425, L100.0100 #### [facility] [address] [place], [address] Chloride [Moles/Vol] 108 mmol/L High 98-107 [facility] Comment on above: Order Comment: 1 Y Performed By: #### L 503.6620, L500.2500, L501.5425, L100.0100 #### [facility] [address] [place], [address] CO2 [Moles/Vol] 30.0 mmol/L Normal 21.0-32.0 [facility] Comment on above: Order Comment: 1 Y Performed By: #### L 503.6620, L500.2500, L501.5425, L100.0100 #### [facility] [address] [place], [address] Creatinine [Mass/Vol] 0.54 mg/dL Low 0.55-1.[address] [facility] Comment on above: Order Comment: 1 Y Result Comment: The validity of the calculated GFR GFRAA in patients over 70 years has not been determined. Clinical correlation is essential. Performed By: #### L 503.6620, L500.2500, L501.5425, L100.0100 #### [facility] [address] [place], [address] ECRCL 132.80 ml/min Normal [facility] Comment on above: Order Comment: 1 Y Performed By: #### L 503.6620, L500.2500, L501.5425, L100.0100 #### [facility] [address] [place], [address] EST GFR - AA 147 mL/min Normal >60 [facility] Comment on above: Order Comment: 1 Y Result Comment: Afri can Malian GFR Calc Performed By: #### L 503.6620, L500.2500, L501.5425, L100.0100 #### [facility] [address] [place], [address] GAP 3 Low 5-15 [facility] Comment on above: Order Comment: 1 Y Performed By: #### L 503.6620, L500.2500, L501.5425, L100.0100 #### [facility] [address] [place], [address] GFR/1.73 sq M.predicted among non-blacks MDRD (S/P/Bld) [Vol rate/Area] 121 mL/min/{1.73_m2} Normal >60 [facility] Comment on above: Order Comment: 1 Y Result Comment: Non- GFR Calc Performed By: #### L 503.6620, L500.2500, L501.5425, L100.0100 #### [facility] [address] [place], [address] Glucose [Mass/Vol] 112 mg/dL High 74-106 [facility] Comment on above: Order Comment: 1 Y Result Comment: Fast ing Glucose result from 100 to 125 mg/dL suggests IMPAIRED HOMEOSTASIS per A.D.A. criteria. Performed By: #### L 503.6620, L500.2500, L501.5425, L100.0100 #### [facility] [address] [place], [address] Potassium [Moles/Vol] 3.6 mmol/L Normal 3.5-5.[address] [facility] Comment on above: Order Comment: 1 Y Performed By: #### L 503.6620, L500.2500, L501.5425, L100.0100 #### [facility] [address] [place], [address] Sodium [Moles/Vol] 142 mmol/L Normal 136-145 [facility] Comment on above: Order Comment: 1 Y Performed By: #### L 503.6620, L500.2500, L501.5425, L100.0100 #### [facility] [address] [place], [address] Urea nitrogen [Mass/Vol] 21 mg/dL High 7-18 [facility] Comment on above: Order Comment: 1 Y Performed By: #### L 503.6620, L500.2500, L501.5425, L100.0100 #### [facility] [address] [place], [address] Bedside Glucoseon 07-15-2024 FINGERSTICK GLU 109 mg/dL High 74-106 [facility] Comment on above: Result Comment: JOSE DANIEL CHERRY OF PATIENT CARE PER NURSING PROTOCOL Performed By: #### L 501.080 ####[facility] [address] [place], [address] CBC W/Diff, Automatedon 06-30 Absolute Lymph 3.30 X10 3/uL Normal 0.83-4.51 [facility] Comment on above: Performed By: #### L 503.6620, L500.2500, L501.5425, L100.0100 #### [facility] [address] [place], [address] Absolute Neut 6.3 X10 3/uL Normal 2.0-7.7 [facility] Comment on above: Performed By: #### L 503.6620, L500.2500, L501.5425, L100.0100 #### [facility] [address] [place], [address] Basophils/100 WBC (Bld) 0.5 % Normal 0-1 [facility] Comment on above: Performed By: #### L 503.6620, L500.2500, L501.5425, L100.0100 #### [facility] [address] [place], [address] Eosinophils/100 WBC (Bld) 2.0 % Normal 0-5 [facility] Comment on above: Performed By: #### L 503.6620, L500.2500, L501.5425, L100.0100 #### [facility] [address] [place], [address] Erythrocyte distribution width (RBC) [Ratio] 13.3 % Normal 11.6-14.6 [facility] Comment on above: Performed By: #### L 503.6620, L500.2500, L501.5425, L100.0100 #### [facility] [address] [place], [address] Hematocrit (Bld) [Volume fraction] 43.1 % Normal 37-47 [facility] Comment on above: Performed By: #### L 503.6620, L500.2500, L501.5425, L100.0100 #### [facility] [address] [place], [address] Hemoglobin (Bld) [Mass/Vol] 14.2 g/dL Normal 12.0-15.0 [facility] Comment on above: Performed By: #### L 503.6620, L500.2500, L501.5425, L100.0100 #### [facility] [address] [place], [address] IG% 0.700 Normal 0.0-0.9 [facility] Comment on above: Result Comment: IG% - Immature Granulocytes (promyelocytes, myelocytes and metamyelocytes) > 1% indicates that a LEFT SHIFT is Present. Performed By: #### L 503.6620, L500.2500, L501.5425, L100.0100 #### [facility] [address] [place], [address] Lymphocytes/100 WBC (Bld) 31.2 % Normal 19-41 [facility] Comment on above: Performed By: #### L 503.6620, L500.2500, L501.5425, L100.0100 #### [facility] [address] [place], [address] MCH (RBC) [Entitic mass] 30.7 pg Normal 27.0-32.0 [facility] Comment on above: Performed By: #### L 503.6620, L500.2500, L501.5425, L100.0100 #### [facility] [address] [place], [address] MCHC (RBC) [Mass/Vol] 32.9 g/dL Normal 32-[address] [facility] Comment on above: Performed By: #### L 503.6620, L500.2500, L501.5425, L100.0100 #### [facility] [address] [place], [address] MCV (RBC) [Entitic vol] 93.1 fL Normal 81-99 [facility] Comment on above: Performed By: #### L 503.6620, L500.2500, L501.5425, L100.0100 #### [facility] [address] [place], [address] Monocytes/100 WBC (Bld) 6.3 % Normal 0-10 [facility] Comment on above: Performed By: #### L 503.6620, L500.2500, L501.5425, L100.0100 #### [facility] [address] [place], [address] Neutrophils/100 WBC (Bld) 59.3 % Normal 47-70 [facility] Comment on above: Performed By: #### L 503.6620, L500.2500, L501.5425, L100.0100 #### [facility] [address] [place], [address] Nucleated RBC (Bld) [#/Vol] 0 10*3/uL Normal 0-5 [facility] Comment on above: Performed By: #### L 503.6620, L500.2500, L501.5425, L100.0100 #### [facility] [address] [place], [address] Platelet mean volume (Bld) [Entitic vol] 11.3 fL Normal 6.2-12.0 [facility] Comment on above: Performed By: #### L 503.6620, L500.2500, L501.5425, L100.0100 #### [facility] [address] [place], [address] Platelets (Bld) [#/Vol] 179 10*3/uL Normal 150-450 [facility] Comment on above: Performed By: #### L 503.6620, L500.2500, L501.5425, L100.0100 #### [facility] [address] [place], [address] RBC (Bld) [#/Vol] 4.63 10*6/uL Normal 4.2-5.4 [facility] Comment on above: Performed By: #### L 503.6620, L500.2500, L501.5425, L100.0100 #### [facility] [address] [place], [address] RDW SD 45.2 fl High 35.1-43.9 [facility] Comment on above: Performed By: #### L 503.6620, L500.2500, L501.5425, L100.0100 #### [facility] [address] [place], [address] WBC (Bld) [#/Vol] 10.6 10*3/uL Normal 4.4-11.0 [facility] Comment on above: Performed By: #### L 503.6620, L500.2500, L501.5425, L100.0100 #### [facility] [address] [place], [address] Chest PA and Lateralon 07-15 Chest PA and Lateral [facility] Imaging Services [address] [place] [address] Chest PA and Lateral MR#: [id number] Acct: [id number] Name: BOAZ GOLDSTEIN Rep #: [id number] : 1965 F 58 From: Song Knapp PCP: Dr. Hu Ricardo MD Status: [facility] ER Study: Chest PA and Lateral Date of Exam: 07/15/24 Exam# [id number] Ordering Dr: Jamal Thompson DO [id number] INDICATION: chest pain, sob EXAMINATION/TECHNIQU E: X-RAY - XR Chest 2 Views COMPARISON: Prior study dated: 12/09/2022 ____ FINDINGS: LINES/DEVICES: None. LUNGS: No consolidation, edema or effusion. No pneumothorax. MEDIASTINUM AND CARDIOVASCULAR STRUCTURES: Cardiac silhouette not enlarged. Central airways and mediastinal contour are unremarkable. BONES AND SOFT TISSUES: Unremarkable. RAD/Chest PA and Lateral IMPRESSION: No radiographic evidence of acute cardiopulmonary disease. Electronically Signed: Song Monterroso MD at 11:03 EST , CC: Dr. Jamal Thompson DO; Dr. 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 Hu Ricardo MD Status:DEP ER Location: ED HPI History of Present Illness Chief Complaint: Shortness of Breath Narrative Narrative: Patient is a 58-year-old female who is presenting to the ER today with chief complaint of shortness of breath. Patient was diagnosed with pneumonia approxi-2 week ago. Patient was initially placed on doxycycline for 10 days which did not help her symptoms. Patient has a history of emphysema and COPD. Patient says that she quit smoking 1 week ago. Doxycycline did not help, she went back to an urgent care, and then was placed on a 4-day course of prednisone along with albuterol inhaler treatment. Patient states inhaler is helping somewhat, the steroids did help minimally. Patient has minimal chest tightness. Patient has been consistently short of breath and coughing for the last 2 weeks. No recent traveling. Patient wears no oxygen during the day or nighttime. 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 Patient does have a PCP. No abdominal pain nausea vomiting. No acute complaints. Patient is in minimal respiratory distress, slight increase in respiratory rate, slightly hyperventilating as well. PFSH [facility] Medical History Alcohol use Abscessed tooth Post-menopausal Depression Anemia High cholesterol Easy bruising Gastric reflux Smoker Shortness of breath on exertion Hx of colonic polyps Hypertension history excision abdominal wall tumor Blood in stool Acid reflux Laryngeal mass History of abnormal cervical Pap smear History Gallbladder Removal History of benign neoplasm of stomach History of bloody stools Anxiety Hyperthyroidism Scoliosis Asthma Tobacco abuse Hypothyroid COPD (chronic obstructive pulmonary disease) 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 Home Medications ???Medication ???Instructions ???Recorded ???Last Taken ???Type amlodipine 5 mg tablet 5 mg PO DAILY #90 tabs 05/07/22 02/22/24 Rx aspirin 81 mg capsule 81 mg PO DAILY #90 caps 05/07/22 02/22/24 Rx atorvastatin 10 mg tablet 10 mg PO QHS #90 tabs 05/07/22 02/22/24 Rx levothyroxine 150 mcg tablet 150 mcg PO DAILY #90 tabs 05/07/22 02/22/24 Rx albuterol sulfate 90 mcg/actuation 2 puff inhalation Q4H PRN PRN 02/17/24 02/22/24 History aerosol inhaler shortness of breath or wheezing albuterol sulfate 90 mcg/actuation 2 puff inhalation Q4H PRN PRN 07/15/24 Unknown Rx aerosol inhaler (Ventolin HFA) Wheezing ##1 doxycycline hyclate 100 mg tablet 100 mg PO BID 07/15/24 Unknown History methylprednisolone 4 mg tablets in 4 mg PO UD ##1 07/15/24 Unknown Rx a dose pack prednisone 10 mg tablet 40 mg PO DAILY 07/15/24 Unknown History Allergy/AdvReac Type Severity Reaction Status Date / Time cephalexin monohydrate (From Allergy Hives Verified 07/15/24 09:35 Keflex) latex Allergy Rash Verified 07/15/24 09:35 Penicillins (PCN) Allergy Hives Verified 07/15/24 09:35 Family History Grandfather Kidney disease Heart disease Colon cancer Sister Lung cancer Seizures Mother Cancer Diabetes Daughter Hypertension Thyroid disorder Surgical History Hx of colonoscopy History of cholecystectomy History of delivery Social History Smoking Status: Current every day smoker tobacco type: cigarettes second hand exposure: Yes quit status: not considering quitting alcohol intake: never substance use type: does not use caffeine: Yes what type of physical activity do you participate in: none seatbelt use: always do you feel safe at home: Yes additional social history: Employed [employer] single ROS ROS ED ROS Narrative REVIEW OF SYSTEMS: Unless otherwise stated in this report the patient's positive and negative responses for review of systems for constitutional, eyes, ENT, cardiovascular, respiratory, gastrointestinal, neurological, , musculoskeletal, and integument systems and related systems to the presenting problem are either stated in the history of present illness or were not pertinent or were negative for the symptoms and/or complaints related to the presenting medical problem. EXAM Physical Exam Narrative Exam Narrative: Vital signs reviewed and patient is not hypoxic. Patient is placed on 2 L for patient comfort, she is not hypoxic General: The patient appears well and in no apparent distress. Patient is resting comfortably on cart. Not toxic, lethargic, or lis (more content not included)... Normal [facility] L501.4020on 07-15-2024 TROPONIN-I HS 3 pg/mL Normal 3.0-54.0 [facility] Comment on above: Result Comment: Plepaula menon Note: New Test Units and Gender Specific Reference Ranges. For more information see Policy Stat Procedure Willow High Sensitivity Troponin (TNIH) and attachments. Performed By: #### L 501.4020 #### [facility] [address] [facility] [place], [address] L501.5425on 07-15-2024 TROPONIN-I HS 3 pg/mL Normal 3.0-54.0 [facility] Comment on above: Order Comment: 1 Y Result Comment: Plepaula menon Note: New Test Units and Gender Specific Reference Ranges. For more information see Policy Stat Procedure [place]ow High Sensitivity Troponin (TNIH) and attachments. Performed By: #### L 503.6620, L500.2500, L501.5425, L100.0100 #### [facility] [address] [facility] [place], [address] ESMEOVon 07-09-2024 CNOV Office Visit (UCWSTR) JUHIBOAZ Ruiz ([id number]) 1965 F Date Time Provider Department 07/09/24 2:30 PM JAMAL LLANOS [facility] During your visit today, we recorded the following information about you: Temperature Pulse Respiration Blood pressure 98 degrees 82/minute 20/minute 150/83 Weight 97.1 kg Jamal Llanos, KIM.CORRECTIONAL MAINTENANCE TECHNICIAN 07/09/2024 2:51 PM Signed Subjective HPI Nontoxic-appearing female presents urgent care chief complaint head congestion cough chest congestion shortness of breath. Has had increased sputum production. OTC medications none. Sick contacts work. Risk factors COPD asthma. Has been using rescue inhalers more. Has helped a little. Denies any hemoptysis pleuritic pain. No high fevers. Past medical history prescription medications allergies reviewed. .Patient presents with: Cough: Head and chest congestion, SOB x1 week PAST MEDICAL HISTORY Diagnosis Date Asthma Asthma, mild intermittent 01/10/2014 Chronic obstructive pulmonary disease (COPD) (HCC) Depression Elbow fracture 02/2015 left GERD (gastroesophageal reflux disease) Hyperlipidemia Hypothyroidism Kidney disease Scoliosis Snoring PAST SURGICAL HISTORY Procedure Laterality Date DELIVERY ONLY , low transverse x 2 COLONOSCOPY 06/08/2014 + polyps, repeat 5 yrs COLSC FLX W/REMOVAL LESION BY HOT BX FORCEPS 12/15/2016 adenomatous polyp - 3 year follow up EGD TRANSORAL BIOPSY SINGLE/MULTIPLE 12/15/2016 reflux esophagitis LAPS SURG CHOLECYSTECTOMY W/CHOLANGIOGRAPHY 01/15/15 normal IOC PAST SURGICAL 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 atorvastatin (LIPITOR) 10 mg tablet Take 10 mg by mouth daily at bedtime. levothyroxine (SYNTHROID) 150 mcg tablet Take 150 mcg by mouth once daily. VENTOLIN HFA 90 mcg/actuation inhaler INHALE TWO(2) PUFFS BY MOUTH EVERY 6 HOURS NEEDED aspirin, enteric coated (ASPIRIN, ENTERIC COATED) 81 mg EC tablet TAKE 1 TABLET BY MOUTH ONCE DAILY. loratadine (CLARITIN) 10 mg tablet Take 1 tablet by mouth once daily. (Patient not taking: Reported on 07/09/2024) levothyroxine (SYNTHROID) 137 mcg tablet TAKE 1 TABLET BY MOUTH ONCE DAILY. (Patient not taking: Reported on 07/09/2024) budesonide-formotero l (SYMBICORT) 160-4.5 mcg/actuation inhaler Inhale 2 Puffs as instructed twice daily. (Patient not taking: Reported on 07/09/2024) FAMILY HISTORY Problem Relation Age of Onset Diabetes Mother Cancer Mother lung Hypertension Mother Cancer Maternal Grandmother lung Cancer Sister cervical Seizures Sister Coronary Artery Disease Father had 3 DE's Diabetes Sister Thyroid Child daughter Social History Tobacco Use Smoking status: Light Smoker Types: Cigarettes Smokeless tobacco: Never Tobacco comments: 2 cigarette per day Substance Use Topics Alcohol use: No Comment: occasionally Drug use: No BP 150/83 Pulse 82 Temp 36.7 ?C (98 ?F) Resp 20 Wt 97.1 kg (214 lb 1.1 oz) SpO2 96% BMI 33.60 kg/m? Review of Systems Constitutional: Positive for malaise/fatigue. Negative for chills and fever. HENT: Positive for congestion. Negative for ear discharge, ear pain, sinus pain and sore throat. Eyes: Negative for blurred vision, pain, discharge and redness. Respiratory: Positive for cough, sputum production and shortness of breath. Negative for hemoptysis, wheezing and stridor. Cardiovascular: Negative for chest pain. Gastrointestinal: Negative for abdominal pain, diarrhea, nausea and vomiting. Musculoskeletal: Positive for myalgias. Skin: Negative for itching and rash. Neurological: Negative for dizziness and headaches. Objective Physical Exam Constitutional: General: She is not in acute distress. Appearance: She is not diaphoretic. HENT: Head: Normocephalic. Jaw: No trismus, tenderness, swelling or pain on movement. Mouth/Throat: Mouth: Mucous membranes are moist. Pharynx: Oropharynx is clear. Uvula midline. No pharyngeal swelling, oropharyngeal exudate, posterior oropharyngeal erythema or uvula swelling. Eyes: Conjunctiva/sclera: Conjunctivae normal. Pupils: Pupils are equal, round, and reactive to light. Cardiovascular: Rate and Rhythm: Normal rate and regular rhythm. Heart sounds: Normal heart sounds. Pulmonary: Effort: Pulmonary effort is normal. No tachypnea, accessory muscle usage or respiratory distress. Breath sounds: No stridor. Wheezing present. No rhonchi or rales. Abdominal: General: There is no distension. Palpations: Abdomen is soft. Tenderness: There is no abdominal tenderness. There is no guarding or rebound. Musculoskeletal: Cervical back: Normal range of motion and neck supple. (more content not included)... Normal [facility] Metabolic Prof ilon 03-10-2024 Albumin [Mass/Vol] 3.4 g/dL Normal 3.2-5.0 [facility] Comment on above: Performed By: #### L 506.0400, L500.4100, L500.4050, L501.15067, L501.9520 ####[facility] [address] [place], [address] Albumin/Globulin [Mass ratio] 1.0 {ratio} Normal 0.9-2.4 [facility] Comment on above: Performed By: #### L 506.0400, L500.4100, L500.4050, L501.81932, L501.9520 ####[facility] [address] [place], [address] ALK P 154 U/L High 45-117 [facility] Comment on above: Performed By: #### L 506.0400, L500.4100, L500.4050, L501.32992, L501.9520 ####[facility] [address] [place], [address] ALT [Catalytic activity/Vol] 23 U/L Normal 13-56 [facility] Comment on above: Performed By: #### L 506.0400, L500.4100, L500.4050, L501.61946, L501.9520 ####[facility] [address] [place], [address] AST [Catalytic activity/Vol] 15 U/L Normal 15-37 [facility] Comment on above: Performed By: #### L 506.0400, L500.4100, L500.4050, L501.93379, L501.9520 ####[facility] [address] [place], [address] Bilirubin [Mass/Vol] 0.30 mg/dL Normal 0.20-1.00 [facility] Comment on above: Result Comment: For patients on eltrombopag therapy, use of Dimension Willow TBIL is not recommended. Performed By: #### L 506.0400, L500.4100, L500.4050, L501.35086, L501.9520 ####[facility] [address] [place], [address] BUN/CRE 27.5 RATIO High 10-20 [facility] Comment on above: Performed By: #### L 506.0400, L500.4100, L500.4050, L501.31645, L501.9520 ####[facility] [address] [place], [address] CA,Total 8.8 mg/dL Normal 8.5-10.1 [facility] Comment on above: Performed By: #### L 506.0400, L500.4100, L500.4050, L501.93875, L501.9520 ####[facility] [address] [place], [address] Chloride [Moles/Vol] 109 mmol/L High 98-107 [facility] Comment on above: Performed By: #### L 506.0400, L500.4100, L500.4050, L501.92315, L501.9520 ####[facility] [address] [place], [address] CO2 [Moles/Vol] 25.0 mmol/L Normal 21.0-32.0 [facility] Comment on above: Performed By: #### L 506.0400, L500.4100, L500.4050, L501.89435, L501.9520 ####[facility] [address] [place], [address] Creatinine [Mass/Vol] 0.58 mg/dL Normal 0.55-1.[address] [facility] Comment on above: Result Comment: The validity of the calculated GFR GFRAA in patients over 70 years has not been determined. Clinical correlation is essential. Performed By: #### L 506.0400, L500.4100, L500.4050, L501.38998, L501.9520 ####[facility] [address] [place], [address] EST GFR - AA 136 mL/min Normal >60 [facility] Comment on above: Result Comment: Afri can Malian GFR Calc Performed By: #### L 506.0400, L500.4100, L500.4050, L501.90760, L501.9520 ####[facility] [address] [place], [address] GAP 5 Normal 5-15 [facility] Comment on above: Performed By: #### L 506.0400, L500.4100, L500.4050, L501.20826, L501.9520 ####[facility] [address] [place], [address] GFR/1.73 sq M.predicted among non-blacks MDRD (S/P/Bld) [Vol rate/Area] 112 mL/min/{1.73_m2} Normal >60 [facility] Comment on above: Result Comment: Non- GFR Calc Performed By: #### L 506.0400, L500.4100, L500.4050, L501.74628, L501.9520 ####[facility] [address] [place], [address] Globulin (S) [Mass/Vol] 3.5 g/dL Normal 2.2-4.2 [facility] Comment on above: Performed By: #### L 506.0400, L500.4100, L500.4050, L501.14631, L501.9520 ####[facility] [address] [place], [address] Glucose [Mass/Vol] 104 mg/dL Normal 74-106 [facility] Comment on above: Result Comment: Fast ing Glucose result from 100 to 125 mg/dL suggests IMPAIRED HOMEOSTASIS per A.D.A. criteria. Performed By: #### L 506.0400, L500.4100, L500.4050, L501.81597, L501.9520 ####[facility] [address] [place], [address] Potassium [Moles/Vol] 3.9 mmol/L Normal 3.5-5.[address] [facility] Comment on above: Performed By: #### L 506.0400, L500.4100, L500.4050, L501.83687, L501.9520 ####[facility] [address] [place], [address] Sodium [Moles/Vol] 139 mmol/L Normal 136-145 [facility] Comment on above: Performed By: #### L 506.0400, L500.4100, L500.4050, L501.93356, L501.9520 ####[facility] [address] [place], [address] T PROT 6.9 g/dL Normal 6.4-8.2 [facility] Comment on above: Performed By: #### L 506.0400, L500.4100, L500.4050, L501.08443, L501.9520 ####[facility] [address] [place], [address] Urea nitrogen [Mass/Vol] 16 mg/dL Normal 7-18 [facility] Comment on above: Performed By: #### L 506.0400, L500.4100, L500.4050, L501.47169, L501.9520 ####[facility] [address] [place], [address] Free T3on 03-10-2024 Free T3 [Mass/Vol] 3.2 pg/mL Normal 2.18-3.98 [facility] Comment on above: Performed By: #### L 506.0400, L500.4100, L500.4050, L501.93669, L501.9520 ####[facility] [address] [place], [address] Lipid Profileon 03-10-2024 Cholesterol [Mass/Vol] 133 mg/dL Normal 200 [facility] Comment on above: Result Comment: <200 mg/dL Desirable 200-240 mg/dL Borderline >240 mg/dL High Risk Performed By: #### L 506.0400, L500.4100, L500.4050, L501.54990, L501.9520 ####[facility] [address] [place], [address] Cholesterol in HDL [Mass/Vol] 60 mg/dL Normal [facility] Comment on above: Result Comment: The drugs N-Acetylcysteine and Metamizole may falsely depress this assay. Reference Range HDL <40 mg/dL Low HDL Cholesterol HDL >or= 60 mg/dL High HDL Cholesterol Performed By: #### L 506.0400, L500.4100, L500.4050, L501.13591, L501.9520 ####[facility] [address] [place], [address] Cholesterol in LDL [Mass/Vol] 61 mg/dL Normal 0-130 [facility] Comment on above: Performed By: #### L 506.0400, L500.4100, L500.4050, L501.24681, L501.9520 ####[facility] [address] [place], [address] Cholesterol in VLDL [Mass/Vol] 12 mg/dL Normal 5-40 [facility] Comment on above: Performed By: #### L 506.0400, L500.4100, L500.4050, L501.08777, L501.9520 ####[facility] [address] [place], [address] Triglyceride [Mass/Vol] 60 mg/dL Normal [facility] Comment on above: Result Comment: The drugs N-Acetylcysteine and Metamizole may falsely depress this assay. Serum Triglycerides Reference Interval Normal <150 mg/dL Borderline high 150 - 199 mg/dL High 200 - 499 mg/dL Very High > or = 500 mg/dL Performed By: #### L 506.0400, L500.4100, L500.4050, L501.30239, L501.9520 ####[facility] [address] [place], [address] T4 Free Directon 03-10-2024 T4 FREE DIRECT 1.44 ng/dL Normal 0.76-1.46 [facility] Comment on above: Performed By: #### L 506.0400, L500.4100, L500.4050, L501.66778, L501.9520 ####[facility] [address] [place], [address] Thyroid Stim Hormone (TSH)on 03-10-2024 TSH 0.10 uIU/mL Low 0.358-3.74 [facility] Comment on above: Performed By: #### L 506.0400, L500.4100, L500.4050, L501.35421, L501.9520 ####[facility] [address] [place], [address] Colonoscopy Reporton 024 Colonoscopy Report [facility] Medical Records Department [address] [place] [address] Colonoscopy Report MR#: [id number] Acct: [id number] Name: BOAZ GOLDSTEIN Rep #: [id number] : 1965 58 From: Jazmine Contreras MD PCP: Dr. Hu Ricardo MD [place] Patient Name: Boaz Goldstein Procedure Date: 02/23/2024 9:12 AM Date of : 1965 Age: 58 Procedure: Colonoscopy Indications: High risk colon cancer surveillance: Personal history of colonic polyps Providers: Jazmine Contreras MD Medicines: Monitored Anesthesia Care Patient Profile: This is a 58 year old female. Last Colonoscopy: 5 years ago. Complications: No immediate complications. Procedure: Pre-Anesthesia Assessment: - Prior to the procedure, a History and Physical was performed, and patient medications and allergies were reviewed. The patient's tolerance of previous anesthesia was also reviewed. The risks and benefits of the procedure and the sedation options and risks were discussed with the patient. All questions were answered, and informed consent was obtained. Prior Anticoagulants: The patient has taken no anticoagulant or antiplatelet agents. ASA Grade Assessment: Per anesthesia. After reviewing the risks and benefits, the patient was deemed in satisfactory condition to undergo the procedure. After I obtained informed consent, the scope was passed under direct vision. Throughout the procedure, the patient's blood pressure, pulse, and oxygen saturations were monitored continuously. The colonoscope was introduced through the anus and advanced to the cecum, identified by the appendiceal orifice, ileocecal valve and palpation. The colonoscopy was performed without difficulty. The patient tolerated the procedure well. The quality of the bowel preparation was good. Scope In: 9:23:22 AM Scope Withdrawal Time 0 hours 17 minutes 51 seconds Scope Out: 9:46:15 AM Total Procedure Duration Time 0 hours 22 minutes 53 seconds Findings: Two sessile polyps were found in the rectum and sigmoid colon. The polyps were less than 5 mm in size. These polyps were removed with a cold biopsy forceps. Resection and retrieval were complete. A single small-mouthed diverticulum was found in the sigmoid colon. The exam was otherwise without abnormality on direct and retroflexion views. Non-bleeding internal hemorrhoids were found. The hemorrhoids were Grade I (internal hemorrhoids that do not prolapse). Impression: - Two less than 5 mm polyps in the rectum and in the sigmoid colon, removed with a cold biopsy forceps. Resected and retrieved. - Diverticulosis in the sigmoid colon. - The examination was otherwise normal on direct and retroflexion views. - Non-bleeding internal hemorrhoids. Recommendation: - Discharge patient to home. - Resume previous diet. - Continue present medications. - Await pathology results. - Repeat colonoscopy in 5 years for surveillance based on pathology results. Procedure Code(s): --- Professional --- 42875, PT, Colonoscopy, flexible; with biopsy, single or multiple Diagnosis Code(s): --- Professional --- Z86.010, Personal history of colonic polyps D12.8, Benign neoplasm of rectum D12.5, Benign neoplasm of sigmoid colon K57.30, Diverticulosis of large intestine without perforation or abscess without bleeding CPT copyright 2021 [employer]. All rights reserved. The codes documented in this report are preliminary and upon roof technician review may be revised to meet current compliance requirements. MD Jazmine Urrutia MD 02/23/2024 9:53:33 AM This report has been signed electronically. Number of Addenda: 0 Note Initiated On: 02/23/2024 9:12 AM 02/23/24 0953 Date Jazmine Contreras MD Cosigner Signature: Date (if indicated) CC: Dr. Hu Ricardo MD; Dr. Jazmine Contreras MD Date Dictated: 02/23/24911 Date Transcribed: Metal Tile Setter: TR Signed Normal [facility] MR/POSTOP.ANEon 02-23-2024 MR/POSTOP.[facility] Medical Records Department [address] [place] [address] Anesthesia Postop Eval I 02/23/24 0954 MR#: [id number] Acct: [id number] Name: BOAZ GOLDSTEIN Rep #: [id number] : 1965 58 From: Prosper Shields PCP: Dr. Hu iRcardo MD Status:[facility] Y Race: C Location: [place] [address] Anesthesia: Postop Eval I Current Vital Signs Temperature: 98.3 F Pulse Rate: 83 Blood Pressure: 105/56 Respiratory Rate: 16 Pulse Ox: 96 Oxygen Delivery Method: Room Air Assessment Airway patent: Yes Spontaneous unlabored respirations: Yes Mental status: Awake and Calm nausea: No Vomiting: No Anesthesia Complication: No Fluid Hydration Crystalloid volume administer (ml): 600 Total IV fluid infused: 600 Progress Note Anesthesia document: Postop Eval 1 completed: Yes 02/23/24 0957 Date Prosper Mixon Signature: Date CC: Signed Normal [facility] MR/OBFUGTCD0od 02-23-2024 /[address] Medical Records Department [facility] [place] [address] Anesthesia Postop Eval II 02/23/24 1512 MR#: [id number] Acct: [id number] Name: BOAZ GOLDSTEIN Rep #: [id number] : 1965 58 From: James Jackson MD PCP: Dr. Hu Ricardo MD Status:[facility] Y Race: C Location: [place] Anesthesia Postop Eval I Sum Postop Eval Completion status Anesthesia document: Postop Eval 1 completed: Yes Anesthesia Postop Eval I Summary Anesthesia Postop Eval I Summary: Anesthesia Postop Eval I: Assessment Summary Airway patent Yes 02/23/24 09:57 [email or web address] Spontaneous unlabored Yes 02/23/24 09:57 [email or web address] respirations Mental status Awake,Calm 02/23/24 09:57 [email or web address] nausea No 02/23/24 09:57 [email or web address] Vomiting No 02/23/24 09:57 [email or web address] Anesthesia Postop Eval I: Fluid Summary Crystalloid volume administer 600 02/23/24 09:57 [email or web address] (ml) Colloids volume administered ( ml) Blood Product volume administered (ml) Total IV fluid infused 600 02/23/24 09:57 [email or web address] Anesthesia Postop Eval I: Summary Notes Anesthesia Complication No 02/23/24 09:57 [email or web address] Anesthesia Complication Comment: Post-operative progress note Anesthesia: Postop Eval II Evaluation Mental status: Awake and Calm Pain Level: 0 nausea: No Vomiting: No Complications Anesthesia Complication: No 02/23/24 1513 Date James Mixon Signature: Date CC: Signed Normal [facility] Surgery Specimen Level Myron 02-23-2024 Surgery Specimen Level IV Patient Age/Sex Location Account Attending Physician BOAZ GOLDSTEIN 58/F EN [id number] Dr. Jazmine Contreras MD Specimen: [id number] Received: 02/23/24 Status: PEARL Vargas Num: [id number] Spec Type: COLON BX Subm Dr: Dr. Jazmine Contreras MD HEADER OPERATION: Colonoscopy with biopsy PRE-OP DIAGNOSIS: History of colonic polyps TISSUE SUBMITTED: A- Sigmoid polyp, B- Rectum polyp MICROSCOPIC DIAGNOSIS A. Sigmoid polyp, biopsy: Fragments of colonic mucosa, no pathologic diagnosis. B. Rectum polyp, biopsy: Fragments of hyperplastic polyp. [facility] 02/24/2024 MICROSCOPIC DESCRIPTION Slides are reviewed. GROSS DESCRIPTION A. Received in fixative is one container labeled with the patient's name and designated Sigmoid polyp. The specimen consists of two irregular fragments of light rader soft tissue that in aggregate measure 0.5 x 0.3 x 0.1 cm. The specimen is totally submitted in one cassette. B. Received in fixative is one container labeled with the patient's name and designated Rectum polyp. The specimen consists of two irregular fragments of light rader soft tissue that in aggregate measure 0.6 x 0.5 x 0.1 cm. The specimen is totally submitted in one cassette. [facility] 02/23/2024 TC:1 CPT:77575n4 Patient Age/Sex Location Account Attending Physician BOAZ GOLDSTEIN 58/F EN [id number] Dr. Jazmine Contreras MD Signed (signature on file) Dr. Eric Gonzalez MD 02/24/24 1245 Normal [facility] Comment on above: Performed By: #### P REZA ####[facility] [address] [place], [address] Basophil percentageOrdered B y: Hu Ricardo on 09-10-2023 Chloride [Moles/Vol] 113 mmol/L 98-107 [facility] Cholesterol [Mass/Vol] 116 mg/dL <200 [facility] Comment on above: <200 mg/dL Desirable 200-240 mg/dL Borderline >240 mg/dL High Risk Glucose [Mass/Vol] 83 mg/dL 74-106 [facility] Potassium [Moles/Vol] 3.4 mmol/L 3.5-5.[address] [facility] Sodium [Moles/Vol] 144 mmol/L 136-145 [facility] Triglyceride [Mass/Vol] 71 mg/dL <199 [facility] Comment on above: The drugs N-Acetylcy steine and Metamizole may falsely depress this assay.Serum Triglycerides Reference Interval Normal <150 mg/dL Borderline high 150 - 199 mg/dL High 200 - 499 mg/dL Very High > or = 500 mg/dL Laboratory - Chemistry and C hemistry - challengeOrdered By: Hu Ricardo on 09-10-2023 CO2 [Moles/Vol] 26.0 mmol/L 21.0-32.0 [facility] Free T4 [Mass/Vol] 1.48 ng/dL 0.76-1.46 [facility] Urea nitrogen/Creatinine [Mass ratio] 23.0 mg/mg 10-20 [facility] No Panel InformationOrdered By: Hu Ricardo on 09-10-2023 Estimated GFR (MDRD) Amer 140 mL/min >60 [facility] Comment on above: GFR Calc Estimated GFR (MDRD) Non-Af Amer 116 mL/min >60 [facility] Comment on above: Non- GFR Calc Free Triiodothyronine (T3) pg/dL 3.3 pg/mL 2.18-3.98 [facility] Thyroid Stimulating Hormone (TSH) 0.13 uIU/mL 0.358-3.74 [facility] Serum or plasma calcium gómez urement (mass/volume)Ordered By: Hu Ricardo on 09-10-2023 Calcium [Mass/Vol] 8.9 mg/dL 8.5-10.1 [facility] Serum or plasma cholesterol in HDL measurement (mass/volume)Ordered By: Hu Ricardo on 09-10-2023 Cholesterol in HDL [Mass/Vol] 46 mg/dL >40 [facility] Comment on above: The drugs N-Acetylcy steine and Metamizole may falsely depress this assay. Reference Range HDL <40 mg/dL Low HDL Cholesterol HDL >or= 60 mg/dL High HDL Cholesterol Serum or plasma cholesterol in VLDL measurement (mass/volume)Ordered By: Hu Ricardo on 09-10-2023 Cholesterol in VLDL [Mass/Vol] 14 mg/dL 5-40 [facility] Serum or plasma creatinine m easurement (mass/volume)Ordered By: Hu Ricardo on 09-10-2023 Creatinine [Mass/Vol] 0.57 mg/dL 0.55-1.[address] [facility] Comment on above: The validity of the calculated GFR & GFRAA in patients over 70 years has not been determined. Clinical correlation is essential. Serum or plasma low density lipoprotein (LDL) cholesterol measurement (mass/volume)Ordered By: Hu Ricardo on 09-10-2023 Cholesterol in LDL [Mass/Vol] 56 mg/dL 0-130 [facility] Serum or plasma urea nitroge n measurement (mass/volume)Ordered By: Hu Ricardo on 09-10-2023 Urea nitrogen [Mass/Vol] 13 mg/dL 7-18 [facility] Thin prep Papanicolaou smear with manual screeningOrdered By: Hu Ricardo on 09-10-2023 Thin prep Papanicolaou smear with manual screening 5 5-15 [facility] Basophil percentageOrdered B y: Hu Ricardo on 06-07-2023 Bilirubin [Mass/Vol] 0.20 mg/dL 0.20-1.00 [facility] Comment on above: For patients on eltr ombopag therapy, use of Dimension Willow TBIL is not recommended. Chloride [Moles/Vol] 111 mmol/L 98-107 [facility] Cholesterol [Mass/Vol] 118 mg/dL <200 [facility] Comment on above: <200 mg/dL Desirable 200-240 mg/dL Borderline >240 mg/dL High Risk Glucose [Mass/Vol] 78 mg/dL 74-106 [facility] Potassium [Moles/Vol] 3.5 mmol/L 3.5-5.[address] [facility] Comment on above: Slight Hemolysis, Re sult may be falsely increased. Protein [Mass/Vol] 7.4 g/dL 6.4-8.2 [facility] Sodium [Moles/Vol] 143 mmol/L 136-145 [facility] Triglyceride [Mass/Vol] 97 mg/dL <199 [facility] Comment on above: The drugs N-Acetylcy steine and Metamizole may falsely depress this assay.Serum Triglycerides Reference Interval Normal <150 mg/dL Borderline high 150 - 199 mg/dL High 200 - 499 mg/dL Very High > or = 500 mg/dL Cervical or vagninal specime n microscopic examination by cytology stain (reported asOrdered By: Hu Ricardo on 06-07-2023 Cytology report Cyto stain Doc (Cvx/Vag) Comment . [facility] Comment on above: The Pap smear is a s creening test designed to aid in thedetection of premalignant and malignant conditions of theuterine cervix. It is not a diagnostic procedure andshould not be used as the sole means of detecting cervicalcancer. Both false-positive and false-negative reports dooccur. Detection in cervical specim en of any of human papilloma virus (HPV) 16, 18, 31, 33,Ordered By: Hu Ricardo on 06-07-2023 HPV 16+18+31+33+35+39+45+51+ 52+56+58+59+66+68 DNA Probe+sig amp Ql (Cvx) Negative Negative [facility] Comment on above: This nucleic acid am plification test detects fourteen high-risk HPV types (16,18,31,33,35,39,45,51,52,56,58,59,66,68)without differentiation.Performed at: - [facility] [id number] Director: Ally Echavarria MD, Phone: [phone] at: =G - [facility] [id number] Director: Ally Echavarria MD, Phone: [phone] Laboratory - Chemistry and C hemistry - challengeOrdered By: Hu Ricardo on 06-07-2023 ALP [Catalytic activity/Vol] 149 U/L 45-117 [facility] ALT [Catalytic activity/Vol] 25 U/L 13-56 [facility] CO2 [Moles/Vol] 26.0 mmol/L 21.0-32.0 [facility] Free T4 [Mass/Vol] 1.31 ng/dL 0.76-1.46 [facility] Globulin (S) [Mass/Vol] 3.7 g/dL 2.2-4.2 [facility] Urea nitrogen/Creatinine [Mass ratio] 27.0 mg/mg 10-20 [facility] Laboratory - CytologyOrdered By: Hu Ricardo on 06-07-2023 Heat Treating Bluer Cyto stain Nom (Cvx/Vag) [ID] Comment . [facility] Comment on above: Blair Wallace, [employer] hnologist (ASCP) Laboratory - Miscellaneous t estsOrdered By: Hu Ricardo on 06-07-2023 Service comment (Unsp spec) [Interp] Comment . [facility] Comment on above: This liquid based Th inPrep(R) pap test was screened withthe use of an image guided system. Service comment (Unsp spec) [Interp] . . [facility] No Panel InformationOrdered By: Hu Ricardo on 06-07-2023 Estimated GFR (MDRD) Amer 124 mL/min >60 [facility] Comment on above: GFR Calc Estimated GFR (MDRD) Non-Af Amer 103 mL/min >60 [facility] Comment on above: Non- GFR Calc Free Triiodothyronine (T3) pg/dL 2.9 pg/mL 2.18-3.98 [facility] Thyroid Stimulating Hormone (TSH) 0.24 uIU/mL 0.358-3.74 [facility] Pathology report final diagnosis Narrative Comment . [facility] Comment on above: NEGATIVE FOR INTRAEP ITHELIAL LESION OR MALIGNANCY. Serum or plasma albumin gómez urement (mass/volume)Ordered By: Hu Ricardo on 06-07-2023 Albumin [Mass/Vol] 3.7 g/dL 3.2-5.0 [facility] Serum or plasma albumin/glob ulin mass ratioOrdered By: Hu Ricardo on 06-07-2023 Albumin/Globulin [Mass ratio] 1.0 {ratio} 0.9-2.4 [facility] Serum or plasma calcium gómez urement (mass/volume)Ordered By: Hu Ricardo on 06-07-2023 Calcium [Mass/Vol] 8.6 mg/dL 8.5-10.1 [facility] Serum or plasma cholesterol in HDL measurement (mass/volume)Ordered By: Hu Ricardo on 06-07-2023 Cholesterol in HDL [Mass/Vol] 45 mg/dL >40 [facility] Comment on above: The drugs N-Acetylcy steine and Metamizole may falsely depress this assay. Reference Range HDL <40 mg/dL Low HDL Cholesterol HDL >or= 60 mg/dL High HDL Cholesterol Serum or plasma cholesterol in VLDL measurement (mass/volume)Ordered By: Hu Ricardo on 06-07-2023 Cholesterol in VLDL [Mass/Vol] 19 mg/dL 5-40 [facility] Serum or plasma creatinine m easurement (mass/volume)Ordered By: Hu Ricardo on 06-07-2023 Creatinine [Mass/Vol] 0.63 mg/dL 0.55-1.[address] [facility] Comment on above: The validity of the calculated GFR & GFRAA in patients over 70 years has not been determined. Clinical correlation is essential. Serum or plasma low density lipoprotein (LDL) cholesterol measurement (mass/volume)Ordered By: Hu Ricardo on 06-07-2023 Cholesterol in LDL [Mass/Vol] 54 mg/dL 0-130 [facility] Serum or plasma urea nitroge n measurement (mass/volume)Ordered By: Hu Ricardo on 06-07-2023 Urea nitrogen [Mass/Vol] 17 mg/dL 7-18 [facility] Thin prep Papanicolaou smear with manual screeningOrdered By: Hu Ricardo on 06-07-2023 Thin prep Papanicolaou smear with manual screening 16 U/L 15-37 [facility] Comment on above: Slight Hemolysis, Re sult may be falsely increased. Thin prep Papanicolaou smear with manual screening 6 5-15 [facility] Absolute lymphocyte countOrd ered By: Dr. Pan on 11-14-2022 Lymphocytes Auto (Unsp spec) [#/Vol] 2.61 10*3/uL 0.83-4.51 [facility] Basophil percentageOrdered B y: Dr. Pan on 11-14-2022 Basophils/100 WBC (Bld) 0.4 % 0-1 [facility] Chloride [Moles/Vol] 111 mmol/L 98-107 [facility] Eosinophils/100 WBC (Bld) 2.1 % 0-5 [facility] Glucose [Mass/Vol] 112 mg/dL 74-106 [facility] Comment on above: Fasting Glucose resu lt from 100 to 125 mg/dL suggests IMPAIRED HOMEOSTASIS per A.D.A. criteria. Neutrophils (Bld) [#/Vol] 6.7 10*3/uL 2.0-7.7 [facility] Neutrophils/100 WBC (Bld) 64.7 % 47-70 [facility] Potassium [Moles/Vol] 3.8 mmol/L 3.5-5.[address] [facility] Sodium [Moles/Vol] 145 mmol/L 136-145 [facility] WBC (Bld) [#/Vol] 10.3 10*3/uL 4.4-11.0 [facility] Blood erythrocytes count (nu mber/volume)Ordered By: Dr. Pan on 11-14-2022 RBC (Bld) [#/Vol] 4.55 10*6/uL 4.2-5.4 [facility] Blood hemoglobin measurement (mass/volume)Ordered By: Dr. Pan on 11-14-2022 Hemoglobin (Bld) [Mass/Vol] 13.9 g/dL 12.0-15.0 [facility] Blood lymphocytes/100 leukoc ytesOrdered By: Dr. Pan on 11-14-2022 Lymphocytes/100 WBC (Bld) 25.3 % 19-41 [facility] Blood monocytes/100 leukocyt esOrdered By: Dr. Pan on 11-14-2022 Monocytes/100 WBC (Bld) 7.2 % 0-10 [facility] Blood platelet mean volumeOr dered By: Dr. Pan on 11-14-2022 Platelet mean volume (Bld) [Entitic vol] 11.6 fL 6.2-12.0 [facility] Determination of erythrocyte mean corpuscular volume (MCV)Ordered By: Dr. Pan on 11-14-2022 MCV (RBC) [Entitic vol] 93.4 fL 81-99 [facility] Hematocrit Auto (Bld) [Volum e fraction]Ordered By: Dr. Pan on 11-14-2022 Hematocrit (Bld) [Volume fraction] 42.5 % 37-47 [facility] Laboratory - Chemistry and C hemistry - challengeOrdered By: Dr. Pan on 11-14-2022 CO2 [Moles/Vol] 28.0 mmol/L 21.0-32.0 [facility] Natriuretic peptide B (Bld) [Mass/Vol] 21.5 pg/mL 0-100 [facility] Urea nitrogen/Creatinine [Mass ratio] 22.6 mg/mg 10-20 [facility] Laboratory - Hematology and Cell countsOrdered By: Dr. Pan on 11-14-2022 Erythrocyte distribution width (RBC) [Entitic vol] 44.9 fL 35.1-43.9 [facility] Erythrocyte distribution width (RBC) [Ratio] 13.1 % 11.6-14.6 [facility] Immature granulocytes/100 WBC (Bld) 0.300 % 0.0-0.9 [facility] Comment on above: IG% - Immature Granu locytes (promyelocytes, myelocytes and metamyelocytes) > 1% indicates that a LEFT SHIFT is Present. MCH (RBC) [Entitic mass] 30.5 pg 27.0-32.0 [facility] Nucleated RBC/100 WBC (Bld) [Ratio] 0 % 0-5 [facility] MCHC Auto (RBC) [Mass/Vol]Or dered By: Dr. Pan on 11-14-2022 MCHC (RBC) [Mass/Vol] 32.7 g/dL 32-[address] [facility] No Panel InformationOrdered By: Dr. Pan on 11-14-2022 Estimated Creatinine Clearance Calc 89.25 ml/min [facility] Estimated GFR (MDRD) Amer 117 mL/min >60 [facility] Comment on above: GFR Calc Estimated GFR (MDRD) Non-Af Amer 97 mL/min >60 [facility] Comment on above: Non- GFR Calc Platelets bldOrdered By: Dr. Pan on 11-14-2022 Platelets (Bld) [#/Vol] 176 10*3/uL 150-450 [facility] Serum or plasma calcium gómez urement (mass/volume)Ordered By: Dr. Pan on 11-14-2022 Calcium [Mass/Vol] 8.6 mg/dL 8.5-10.1 [facility] Serum or plasma creatinine m easurement (mass/volume)Ordered By: Dr. Pan on 11-14-2022 Creatinine [Mass/Vol] 0.66 mg/dL 0.55-1.[address] [facility] Comment on above: The validity of the calculated GFR & GFRAA in patients over 70 years has not been determined. Clinical correlation is essential. Serum or plasma urea nitroge n measurement (mass/volume)Ordered By: Dr. Pan on 11-14-2022 Urea nitrogen [Mass/Vol] 15 mg/dL 03-16 [facility] Thin prep Papanicolaou smear with manual screeningOrdered By: Dr. Pan on 11-14-2022 Thin prep Papanicolaou smear with manual screening 6 01-11 [facility] Basophil percentageon 2021 Bilirubin [Mass/Vol] 0.30 mg/dL 0.20-1.00 [facility] Work Phone: Comment on above: For patients on eltr ombopag therapy, use of Dimension [place] TBIL is not recommended. Chloride [Moles/Vol] 111 mmol/L 98-107 [facility] Work Phone: Cholesterol [Mass/Vol] 153 mg/dL <200 [facility] Work Phone: Comment on above: <200 mg/dL Desirable 200-240 mg/dL Borderline >240 mg/dL High Risk Glucose [Mass/Vol] 112 mg/dL 74-106 [facility] Work Phone: Comment on above: Fasting Glucose resu lt from 100 to 125 mg/dL suggests IMPAIRED HOMEOSTASIS per A.D.A. criteria. Potassium [Moles/Vol] 3.7 mmol/L 3.5-5.[address] [facility] Work Phone: Protein [Mass/Vol] 7.4 g/dL 6.4-8.2 [facility] Work Phone: Sodium [Moles/Vol] 141 mmol/L 136-145 [facility] Work Phone: [phone] Triglyceride [Mass/Vol] 165 mg/dL [facility] Work Phone: [phone] Comment on above: The drugs N-Acetylcy steine and Metamizole may falsely depress this assay.Serum Triglycerides Reference Interval Normal <150 mg/dL Borderline high 150 - 199 mg/dL High 200 - 499 mg/dL Very High > or = 500 mg/dL Laboratory - Chemistry and C hemistry - challengeon 12-29-2021 ALP [Catalytic activity/Vol] 127 U/L 45-117 [facility] Work Phone: [phone] ALT [Catalytic activity/Vol] 29 U/L 13-56 [facility] Work Phone: [phone] CO2 [Moles/Vol] 25.0 mmol/L 21.0-32.0 [facility] Work Phone: [phone] Globulin (S) [Mass/Vol] 3.6 g/dL 2.2-4.2 [facility] Work Phone: [phone] Urea nitrogen/Creatinine [Mass ratio] 21.6 mg/mg 10-20 [facility] Work Phone: [phone] No Panel Informationon 12-29 Estimated GFR (MDRD) Amer 85 mL/min >60 [facility] Work Phone: [phone] Comment on above: GFR Calc Estimated GFR (MDRD) Non-Af Amer 70 mL/min >60 [facility] Work Phone: Comment on above: Non- GFR Calc Serum or plasma albumin gómez urement (mass/volume)on 12-29-2021 Albumin [Mass/Vol] 3.8 g/dL 3.2-5.0 [facility] Work Phone: [phone] Serum or plasma albumin/glob ulin mass ratioon 12-29-2021 Albumin/Globulin [Mass ratio] 1.1 {ratio} 0.9-2.4 [facility] Work Phone: [phone] Serum or plasma calcium gómez urement (mass/volume)on 12-29-2021 Calcium [Mass/Vol] 8.8 mg/dL 8.5-10.1 [facility] Work Phone: Serum or plasma cholesterol in HDL measurement (mass/volume)on 12-29-2021 Cholesterol in HDL [Mass/Vol] 54 mg/dL [facility] Work Phone: Comment on above: The drugs N-Acetylcy steine and Metamizole may falsely depress this assay. Reference Range HDL <40 mg/dL Low HDL Cholesterol HDL >or= 60 mg/dL High HDL Cholesterol Serum or plasma cholesterol in VLDL measurement (mass/volume)on 12-29-2021 Cholesterol in VLDL [Mass/Vol] 33 mg/dL 5-40 [facility] Work Phone: [phone] Serum or plasma creatinine m easurement (mass/volume)on 12-29-2021 Creatinine [Mass/Vol] 0.88 mg/dL 0.55-1.[address] [facility] Work Phone: Comment on above: The validity of the calculated GFR & GFRAA in patients over 70 years has not been determined. Clinical correlation is essential. Serum or plasma low density lipoprotein (LDL) cholesterol measurement (mass/volume)on 12-29-2021 Cholesterol in LDL [Mass/Vol] 66 mg/dL 0-130 [facility] Work Phone: Serum or plasma urea nitroge n measurement (mass/volume)on 12-29-2021 Urea nitrogen [Mass/Vol] 19 mg/dL 7-18 [facility] Work Phone: [phone] Thin prep Papanicolaou smear with manual screeningon 12-29-2021 Thin prep Papanicolaou smear with manual screening 19 U/L 15-37 [facility] Work Phone: [phone] Thin prep Papanicolaou smear with manual screening 5 5-15 [facility] Work Phone: [phone] HIV 1 and HIV-2 antibody ass ay with HIV-1 p24 antigen detectionon 12-19-2021 HIV 1+2 Ab+HIV1 p24 Ag IA Ql Non-Reactive Nonreactive [facility] Work Phone: Serum Treponema species anti body detectionon 12-19-2021 Treponema sp Ab Ql (S) Non-Reactive [facility] Work Phone: Absolute lymphocyte counton 11-12-2021 Lymphocytes Auto (Unsp spec) [#/Vol] 2.12 10*3/uL 0.83-4.51 [facility] Work Phone: Basophil percentageon 2021 Basophils/100 WBC (Bld) 0.3 % 0-1 [facility] Work Phone: Chloride [Moles/Vol] 108 mmol/L 98-107 [facility] Work Phone: Eosinophils/100 WBC (Bld) 2.0 % 0-5 [facility] Work Phone: Glucose [Mass/Vol] 102 mg/dL 74-106 [facility] Work Phone: Comment on above: Fasting Glucose resu lt from 100 to 125 mg/dL suggests IMPAIRED HOMEOSTASIS per A.D.A. criteria. Neutrophils (Bld) [#/Vol] 7.4 10*3/uL 2.0-7.7 [facility] Work Phone: Neutrophils/100 WBC (Bld) 71.2 % 47-70 [facility] Work Phone: Potassium [Moles/Vol] 3.7 mmol/L 3.5-5.[address] [facility] Work Phone: Sodium [Moles/Vol] 140 mmol/L 136-145 [facility] Work Phone: WBC (Bld) [#/Vol] 10.4 10*3/uL 4.4-11.0 [facility] Work Phone: Blood erythrocytes count (nu mber/volume)on 11-12-2021 RBC (Bld) [#/Vol] 4.75 10*6/uL 4.2-5.4 [facility] Work Phone: Blood hemoglobin measurement (mass/volume)on 11-12-2021 Hemoglobin (Bld) [Mass/Vol] 15.1 g/dL 12.0-15.0 [facility] Work Phone: Blood lymphocytes/100 leukoc yteson 11-12-2021 Lymphocytes/100 WBC (Bld) 20.4 % 19-41 [facility] Work Phone: Blood monocytes/100 leukocyt eson 11-12-2021 Monocytes/100 WBC (Bld) 5.9 % 0-10 [facility] Work Phone: Blood platelet mean volumeon 11-12-2021 Platelet mean volume (Bld) [Entitic vol] 11.3 fL 6.2-12.0 [facility] Work Phone: Determination of erythrocyte mean corpuscular volume (MCV)on 11-12-2021 MCV (RBC) [Entitic vol] 93.7 fL 81-99 [facility] Work Phone: Hematocrit Auto (Bld) [Volum e fraction]on 11-12-2021 Hematocrit (Bld) [Volume fraction] 44.5 % 37-47 [facility] Work Phone: Laboratory - Chemistry and C hemistry - challengeon 11-12-2021 CO2 [Moles/Vol] 30.0 mmol/L 21.0-32.0 [facility] Work Phone: Urea nitrogen/Creatinine [Mass ratio] 27.4 mg/mg 10-20 [facility] Work Phone: Laboratory - Hematology and Cell countson 11-12-2021 Erythrocyte distribution width (RBC) [Entitic vol] 45.5 fL 35.1-43.9 [facility] Work Phone: [phone] Erythrocyte distribution width (RBC) [Ratio] 13.3 % 11.6-14.6 [facility] Work Phone: [phone] Immature granulocytes/100 WBC (Bld) 0.200 % 0.0-0.9 [facility] Work Phone: Comment on above: IG% - Immature Granu locytes (promyelocytes, myelocytes and metamyelocytes) > 1% indicates that a LEFT SHIFT is Present. MCH (RBC) [Entitic mass] 31.8 pg 27.0-32.0 [facility] Work Phone: Nucleated RBC/100 WBC (Bld) [Ratio] 0 % 0-5 [facility] Work Phone: [phone] MCHC Auto (RBC) [Mass/Vol]on 11-12-2021 MCHC (RBC) [Mass/Vol] 33.9 g/dL 32-[address] [facility] Work Phone: No Panel Informationon 11-12 Estimated Creatinine Clearance Calc 102.81 ml/min [facility] Work Phone: [phone] Estimated GFR (MDRD) Amer 136 mL/min >60 [facility] Work Phone: Comment on above: GFR Calc Estimated GFR (MDRD) Non-Af Amer 113 mL/min >60 [facility] Work Phone: [phone] Comment on above: Non- GFR Calc Platelets bldon 11-12-2021 Platelets (Bld) [#/Vol] 165 10*3/uL 150-450 [facility] Work Phone: S. pyogenes Ag IF Ql (Throat )on 11-12-2021 S. pyogenes Ag IA Ql (Unsp spec) Streptococcus Group A [facility] Work Phone: [phone] Serum or plasma calcium gómez urement (mass/volume)on 11-12-2021 Calcium [Mass/Vol] 8.6 mg/dL 8.5-10.1 [facility] Work Phone: [phone] Serum or plasma creatinine m easurement (mass/volume)on 11-12-2021 Creatinine [Mass/Vol] 0.58 mg/dL 0.55-1.[address] [facility] Work Phone: Comment on above: The validity of the calculated GFR & GFRAA in patients over 70 years has not been determined. Clinical correlation is essential. Serum or plasma urea nitroge n measurement (mass/volume)on 11-12-2021 Urea nitrogen [Mass/Vol] 16 mg/dL 7-18 [facility] Work Phone: Thin prep Papanicolaou smear with manual screeningon 11-12-2021 Thin prep Papanicolaou smear with manual screening 2 5-15 [facility] Work Phone: Absolute lymphocyte counton 10-06-2021 Lymphocytes Auto (Unsp spec) [#/Vol] 4.20 10*3/uL 0.83-4.51 [facility] Work Phone: Basophil percentageon 2021 Basophils/100 WBC (Bld) 0.3 % 0-1 [facility] Work Phone: Bilirubin [Mass/Vol] 0.30 mg/dL 0.20-1.00 [facility] Work Phone: Comment on above: For patients on eltr ombopag therapy, use of Dimension [place] TBIL is not recommended. Chloride [Moles/Vol] 105 mmol/L 98-107 [facility] Work Phone: Cholesterol [Mass/Vol] 210 mg/dL <200 [facility] Work Phone: Comment on above: <200 mg/dL Desirable 200-240 mg/dL Borderline >240 mg/dL High Risk Eosinophils/100 WBC (Bld) 1.6 % 0-5 [facility] Work Phone: [phone] Glucose [Mass/Vol] 86 mg/dL 74-106 [facility] Work Phone: Neutrophils (Bld) [#/Vol] 7.3 10*3/uL 2.0-7.7 [facility] Work Phone: Neutrophils/100 WBC (Bld) 57.6 % 47-70 [facility] Work Phone: Potassium [Moles/Vol] 3.8 mmol/L 3.5-5.[address] [facility] Work Phone: [phone] Protein [Mass/Vol] 8.1 g/dL 6.4-8.2 [facility] Work Phone: Sodium [Moles/Vol] 138 mmol/L 136-145 [facility] Work Phone: [phone] Triglyceride [Mass/Vol] 90 mg/dL [facility] Work Phone: [phone] Comment on above: The drugs N-Acetylcy steine and Metamizole may falsely depress this assay.Serum Triglycerides Reference Interval Normal <150 mg/dL Borderline high 150 - 199 mg/dL High 200 - 499 mg/dL Very High > or = 500 mg/dL WBC (Bld) [#/Vol] 12.6 10*3/uL 4.4-11.0 [facility] Work Phone: Blood erythrocytes count (nu mber/volume)on 10-06-2021 RBC (Bld) [#/Vol] 5.10 10*6/uL 4.2-5.4 [facility] Work Phone: Blood hemoglobin measurement (mass/volume)on 10-06-2021 Hemoglobin (Bld) [Mass/Vol] 15.5 g/dL 12.0-15.0 [facility] Work Phone: Blood lymphocytes/100 leukoc yteson 10-06-2021 Lymphocytes/100 WBC (Bld) 33.4 % 19-41 [facility] Work Phone: Blood monocytes/100 leukocyt eson 10-06-2021 Monocytes/100 WBC (Bld) 6.4 % 0-10 [facility] Work Phone: Blood platelet mean volumeon 10-06-2021 Platelet mean volume (Bld) [Entitic vol] 10.7 fL 6.2-12.0 [facility] Work Phone: [phone] Determination of erythrocyte mean corpuscular volume (MCV)on 10-06-2021 MCV (RBC) [Entitic vol] 94.1 fL 81-99 [facility] Work Phone: [phone] Hematocrit Auto (Bld) [Volum e fraction]on 10-06-2021 Hematocrit (Bld) [Volume fraction] 48.0 % 37-47 [facility] Work Phone: [phone] Laboratory - Chemistry and C hemistry - challengeon 10-06-2021 ALP [Catalytic activity/Vol] 122 U/L 45-117 [facility] Work Phone: [phone] ALT [Catalytic activity/Vol] 48 U/L 13-56 [facility] Work Phone: [phone] CO2 [Moles/Vol] 29.0 mmol/L 21.0-32.0 [facility] Work Phone: [phone] Globulin (S) [Mass/Vol] 4.3 g/dL 2.2-4.2 [facility] Work Phone: [phone] Urea nitrogen/Creatinine [Mass ratio] 22.1 mg/mg 10-20 [facility] Work Phone: [phone] Laboratory - Hematology and Cell countson 10-06-2021 Erythrocyte distribution width (RBC) [Entitic vol] 44.7 fL 35.1-43.9 [facility] Work Phone: [phone] Erythrocyte distribution width (RBC) [Ratio] 12.8 % 11.6-14.6 [facility] Work Phone: [phone] Immature granulocytes/100 WBC (Bld) 0.700 % 0.0-0.9 [facility] Work Phone: [phone] Comment on above: IG% - Immature Granu locytes (promyelocytes, myelocytes and metamyelocytes) > 1% indicates that a LEFT SHIFT is Present. MCH (RBC) [Entitic mass] 30.4 pg 27.0-32.0 [facility] Work Phone: [phone] Nucleated RBC/100 WBC (Bld) [Ratio] 0 % 0-5 [facility] Work Phone: [phone] MCHC Auto (RBC) [Mass/Vol]on 10-06-2021 MCHC (RBC) [Mass/Vol] 32.3 g/dL 32-[address] [facility] Work Phone: [phone] No Panel Informationon 10-06 Estimated GFR (MDRD) Amer 106 mL/min >60 [facility] Work Phone: Comment on above: GFR Calc Estimated GFR (MDRD) Non-Af Amer 88 mL/min >60 [facility] Work Phone: Comment on above: Non- GFR Calc Thyroid Stimulating Hormone (TSH) 0.89 uIU/mL 0.358-3.74 [facility] Work Phone: Platelets bldon 10-06-2021 Platelets (Bld) [#/Vol] 250 10*3/uL 150-450 [facility] Work Phone: Serum Helicobacter pylori Ig G antibody assay (units/volume)on 10-06-2021 H. pylori IgG Qn (S) 0.10 [facility] Work Phone: Comment on above: Result Units: Index Value Negative <0.80 Equivocal 0.80 - 0.89 Positive >0.89Performed at: [employer] [facility] [place] [id number] Director: Austin Bustamante PhD, Phone: [phone] Serum or plasma albumin gómez urement (mass/volume)on 10-06-2021 Albumin [Mass/Vol] 3.8 g/dL 3.2-5.0 [facility] Work Phone: [phone] Serum or plasma albumin/glob ulin mass ratioon 10-06-2021 Albumin/Globulin [Mass ratio] 0.9 {ratio} 0.9-2.4 [facility] Work Phone: [phone] Serum or plasma calcium gómez urement (mass/volume)on 10-06-2021 Calcium [Mass/Vol] 9.1 mg/dL 8.5-10.1 [facility] Work Phone: [phone] Serum or plasma cholesterol in HDL measurement (mass/volume)on 10-06-2021 Cholesterol in HDL [Mass/Vol] 55 mg/dL [facility] Work Phone: Comment on above: The drugs N-Acetylcy steine and Metamizole may falsely depress this assay. Reference Range HDL <40 mg/dL Low HDL Cholesterol HDL >or= 60 mg/dL High HDL Cholesterol Serum or plasma cholesterol in VLDL measurement (mass/volume)on 10-06-2021 Cholesterol in VLDL [Mass/Vol] 18 mg/dL 5-40 [facility] Work Phone: Serum or plasma creatinine m easurement (mass/volume)on 10-06-2021 Creatinine [Mass/Vol] 0.72 mg/dL 0.55-1.[address] [facility] Work Phone: Comment on above: The validity of the calculated GFR & GFRAA in patients over 70 years has not been determined. Clinical correlation is essential. Serum or plasma low density lipoprotein (LDL) cholesterol measurement (mass/volume)on 10-06-2021 Cholesterol in LDL [Mass/Vol] 137 mg/dL 0-130 [facility] Work Phone: Serum or plasma urea nitroge n measurement (mass/volume)on 10-06-2021 Urea nitrogen [Mass/Vol] 16 mg/dL 7-18 [facility] Work Phone: Thin prep Papanicolaou smear with manual screeningon 10-06-2021 Thin prep Papanicolaou smear with manual screening 22 U/L 15-37 [facility] Work Phone: Thin prep Papanicolaou smear with manual screening 4 5-15 [facility] Work Phone: No Panel Informationon 09-27 SARS-CoV-2 Antigen (Rapid) [facility] Work Phone: Vital Signs Date Time Vital Sign Value Performing Clinician Facility 01-26-2025 12:21-0400 Body temperature 98.3 [degF] Dr. Hu Ricardo MD Work Phone: [facility] 01-26-2025 12:21-0400 Diastolic blood pressure 70 mm[Hg] Dr. Hu Ricardo MD Work Phone: [facility] 01-26-2025 12:21-0400 Heart rate 80 /min Dr. Hu Ricardo MD Work Phone: [facility] 01-26-2025 12:21-0400 Respiratory rate 18 /min Dr. Hu Ricardo MD Work Phone: [facility] 01-26-2025 12:21-0400 SaO2% (BldA) [Mass fraction] 99 % Dr. Hu Ricardo MD Work Phone: [facility] 01-26-2025 12:21-0400 Systolic blood pressure 120 mm[Hg] Dr. Hu Ricardo MD Work Phone: [facility] 01-26-2025 10:00-0400 Body height 170.[address] Hu Ricardo MD Work Phone: [facility] 01-26-2025 10:00-0400 Body mass index (BMI) [Ratio] 35.7 kg/m2 Dr. Hu Ricardo MD Work Phone: [facility] 01-26-2025 10:00-0400 Body weight 103.[address] Hu Ricardo MD Work Phone: [facility] 07-28-2024 10:20-0500 Diastolic Blood Pressure Non-Invasive 73 mm[Hg] EWELINA PUENTE MD [facility] 07-28-2024 10:20-0500 Heart rate 73 /min EWELINA PUENTE MD [facility] 07-28-2024 10:20-0500 Respiratory rate 16 /min EWELINA PUENTE MD [facility] 07-28-2024 10:20-0500 Systolic Blood Pressure Non-Invasive 141 mm[Hg] EWELINA PUENTE MD [facility] 07-28-2024 08:25-0500 Body height 170.2 cm EWELINA PUENTE MD [facility] 07-28-2024 08:25-0500 Body temperature 98.42 [degF] EWELINA PUENTE MD [facility] 07-28-2024 08:25-0500 Body weight 86.4 kg EWELINA PUENTE MD [facility] 07-28-2024 08:25-0500 Diastolic Blood Pressure Non-Invasive 73 mm[Hg] EWELINA PUENTE MD [facility] 07-28-2024 08:25-0500 Heart rate 89 /min EWELINA PUENTE MD [facility] 07-28-2024 08:25-0500 Respiratory rate 18 /min EWELINA PUENTE MD [facility] 07-28-2024 08:25-0500 Systolic Blood Pressure Non-Invasive 120 mm[Hg] EWELINA PUENTE MD [facility] 07-22-2024 14:12-0500 Body mass index (BMI) [Ratio] 33.91 kg/m2 [facility] CREDIT ADVISOR.CORRECTIONAL MAINTENANCE TECHNICIAN Work Phone: [facility] 07-22-2024 14:12-0500 Body temperature 97.7 [degF] [facility] CREDIT ADVISOR.CORRECTIONAL MAINTENANCE TECHNICIAN Work Phone: [facility] 07-22-2024 14:12-0500 Body weight 98 kg [facility] CREDIT ADVISOR.CORRECTIONAL MAINTENANCE TECHNICIAN Work Phone: [facility] 07-22-2024 14:12-0500 Diastolic blood pressure 80 mm[Hg] [facility] CREDIT ADVISOR.CORRECTIONAL MAINTENANCE TECHNICIAN Work Phone: [facility] 07-22-2024 14:12-0500 Heart rate 94 /min [facility] CREDIT ADVISOR.CORRECTIONAL MAINTENANCE TECHNICIAN Work Phone: [facility] 07-22-2024 14:12-0500 Respiratory rate 16 /min [facility] CREDIT ADVISOR.CORRECTIONAL MAINTENANCE TECHNICIAN Work Phone: [facility] [facility] 07-22-2024 14:12-0500 SaO2% (BldA) [Mass fraction] 97 % [facility] CREDIT ADVISOR.CORRECTIONAL MAINTENANCE TECHNICIAN Work Phone: [facility] 07-22-2024 14:12-0500 Systolic blood pressure 124 mm[Hg] [facility] CREDIT ADVISOR.CORRECTIONAL MAINTENANCE TECHNICIAN Work Phone: [facility] 07-09-2024 14:37-0500 Body mass index (BMI) [Ratio] 33.6 kg/m2 [facility] CREDIT ADVISOR.CORRECTIONAL MAINTENANCE TECHNICIAN Work Phone: [facility] 07-09-2024 14:37-0500 Body temperature 98.01 [degF] [facility] CREDIT ADVISOR.CORRECTIONAL MAINTENANCE TECHNICIAN Work Phone: [facility] 07-09-2024 14:37-0500 Body weight 97.1 kg [facility] CREDIT ADVISOR.CORRECTIONAL MAINTENANCE TECHNICIAN Work Phone: [facility] 07-09-2024 14:37-0500 Diastolic blood pressure 83 mm[Hg] [facility] CREDIT ADVISOR.CORRECTIONAL MAINTENANCE TECHNICIAN Work Phone: [facility] 07-09-2024 14:37-0500 Heart rate 82 /min [facility] CREDIT ADVISOR.CORRECTIONAL MAINTENANCE TECHNICIAN Work Phone: [facility] 07-09-2024 14:37-0500 Respiratory rate 20 /min [facility] CREDIT ADVISOR.CORRECTIONAL MAINTENANCE TECHNICIAN Work Phone: [facility] 07-09-2024 14:37-0500 SaO2% (BldA) [Mass fraction] 96 % [facility] CREDIT ADVISOR.CORRECTIONAL MAINTENANCE TECHNICIAN Work Phone: [facility] 07-09-2024 14:37-0500 Systolic blood pressure 150 mm[Hg] [facility] CREDIT ADVISOR.CORRECTIONAL MAINTENANCE TECHNICIAN Work Phone: [facility] 11-14-2022 17:05-0400 Diastolic blood pressure 57 mm[Hg] [facility] 11-14-2022 17:05-0400 Heart rate 97 /min [facility] 11-14-2022 17:05-0400 Respiratory rate 19 /min [facility] 11-14-2022 17:05-0400 SaO2% (BldA) [Mass fraction] 98 % [facility] 11-14-2022 17:05-0400 Systolic blood pressure 126 mm[Hg] [facility] 11-14-2022 15:31-0400 Body height 170.18 cm [facility] 11-14-2022 15:31-0400 Body mass index (BMI) [Ratio] 31.3 kg/m2 [facility] 11-14-2022 15:31-0400 Body temperature 96.7 [degF] [facility] 11-14-2022 15:31-0400 Body weight 90.71 kg [facility] 11-12-2021 06:30-0400 Respiratory rate 17 /min PERFORMANCE TEST ARCHITECT-C Romi Dwyer Work Phone: [facility] Work Phone: 11-12-2021 06:29-0400 Heart rate 72 /min PERFORMANCE TEST ARCHITECT-C Romi Dwyer Work Phone: [facility] Work Phone: 11-12-2021 06:29-0400 SaO2% (BldA) [Mass fraction] 98 % PERFORMANCE TEST ARCHITECT-C Romi Corvalius Work Phone: [facility] Work Phone: 11-12-2021 04:39-0400 Diastolic blood pressure 89 mm[Hg] PERFORMANCE TEST ARCHITECT-C Romi Dwyer Work Phone: [facility] Work Phone: 11-12-2021 04:39-0400 Systolic blood pressure 137 mm[Hg] PERFORMANCE TEST ARCHITECT-C Romi Dwyer Work Phone: [facility] Work Phone: 11-12-2021 03:56-0400 Body height 170.18 cm PERFORMANCE TEST ARCHITECT-C Romi Dwyer Work Phone: [facility] Work Phone: 11-12-2021 03:56-0400 Body mass index (BMI) [Ratio] 35.2 kg/m2 PERFORMANCE TEST ARCHITECT-C Romi Dwyer Work Phone: [facility] Work Phone: 11-12-2021 03:56-0400 Body temperature 97.9 [degF] PERFORMANCE TEST ARCHITECT-C Romi Dwyer Work Phone: [facility] Work Phone: 11-12-2021 03:56-0400 Body weight 102.2 kg PERFORMANCE TEST ARCHITECT-C Romi Carlsons Work Phone: [facility] Work Phone: Encounters Encounter Date Encounter Type Care Provider Facility Start: 01-26-2025 End: 01-26-2025 Emergency department patient visit Dr. Hu Ricardo MD Work Phone: -Emergency Department Work Phone: Start: 12-22-2024 End: 12-22-2024 ambulatory CLARA HENDERSON MD Facility:[facility] Start: 12-22-2024 End: 12-22-2024 Patient encounter procedure CLARA HENDERSON MD [facility] Start: 10-07-2024 ambulatory Hu Ricardo Facility:[facility] Start: 09-11-2024 End: 09-11-2024 ambulatory HU RICARDO Facility:[facility] Start: 07-28-2024 End: 07-28-2024 Emergency department patient visit EWELINA PUENTE MD [facility] Start: 07-25-2024 End: 07-26-2024 Emergency department patient visit Hu Ricardo Facility:[facility] Start: 07-25-2024 End: 07-25-2024 Emergency department patient visit Hu Ricardo Facility:[facility] Start: 07-22-2024 End: 07-22-2024 ambulatory HU RICARDO Facility:[facility] Start: 07-22-2024 End: 07-22-2024 Office outpatient visit 15 minutes Jamal Llanos APRN.CORRECTIONAL MAINTENANCE TECHNICIAN Work Phone: [facility] Comment on above: Red eye (Primary Dx) Start: 07-15-2024 End: 07-15-2024 Emergency department patient visit Jamal Jay Facility:[facility] Start: 07-09-2024 End: 07-09-2024 ambulatory [place] RICARD[place] Facility:[facility] Start: 07-09-2024 End: 07-09-2024 Office outpatient visit 25 minutes Jamal Viet DUONGCORRECTIONAL MAINTENANCE TECHNICIAN Work Phone: [facility] Comment on above: COPD with exacerbati on (HCC) (Primary Dx) Start: 03-10-2024 End: 03-10-2024 ambulatory Hu Ricardo Facility:[facility] Start: 02-23-2024 End: 02-23-2024 ambulatory Hu Ricardo Facility:[facility] Start: 09-10-2023 End: 09-10-2023 ambulatory [facility] Work Phone: Start: 09-10-2023 End: 09-10-2023 Patient encounter procedure [facility] Start: 06-17-2023 End: 06-17-2023 ambulatory [facility] Work Phone: Start: 06-17-2023 End: 06-17-2023 Patient encounter procedure [facility]-Outpatient Bone Densitometry Work Phone: Start: 06-07-2023 End: 06-07-2023 ambulatory [facility] Work Phone: Start: 06-07-2023 End: 06-07-2023 Patient encounter procedure [facility] Start: 11-14-2022 End: 11-14-2022 Emergency department patient visit [facility]-Emergency Department Start: 12-29-2021 End: 12-29-2021 Patient encounter procedure PERFORMANCE TEST ARCHITECT-C Romi Dwyer Work Phone: [facility] Start: 12-19-2021 End: 12-19-2021 Patient encounter procedure PERFORMANCE TEST ARCHITECT-C Romi Dwyer [facility] Start: 11-12-2021 End: 11-12-2021 Emergency department patient visit PERFORMANCE TEST ARCHITECT-C Romi Dwyer Work Phone: [facility]-Emergency Department Start: 10-22-2021 Non-patient / Non-visit PERFORMANCE TEST ARCHITECT-C Darlene Dwyer Work Phone: [facility] Start: 10-21-2021 End: 10-21-2021 Patient encounter procedure PERFORMANCE TEST ARCHITECT-C Romi Dwyer Work Phone: [facility]-Pulmonary Services/Neurology Start: 10-06-2021 End: 10-06-2021 Patient encounter procedure PERFORMANCE TEST ARCHITECT-C Romi Dwyer Work Phone: [facility]Laboratory Start: 09-27-2021 End: 09-27-2021 Emergency department patient visit PERFORMANCE TEST ARCHITECT-C Romi Dwyer Work Phone: [facility]-Emergency Department Start: 10-28-2016 Patient encounter status Jamal Llanos CREDIT ADVISOR.CORRECTIONAL MAINTENANCE TECHNICIAN Work Phone: [facility] Start: 08-13-2014 Patient encounter status Jamal Llanos CREDIT ADVISOR.CORRECTIONAL MAINTENANCE TECHNICIAN Work Phone: [facility] Procedures Date Procedure Procedure Detail Performing Clinician Start: 01-26-2025 Plain chest X-ray Dr. Marleen Ricardo MD Work Phone: Start: 01-26-[address] Hu Ricardo MD Work Phone: Start: 06-17-2023 Dual energy X-ray absorptiometry Start: 06-17-2023 Screening mammography Start: 11-14-2022 Plain chest X-ray Start: 11-12-2021 Streptococcus pyogen es antigen assay PERFORMANCE TEST ARCHITECT-C Romi Dwyer Work Phone: Start: 11-12-2021 End: 11-12-2021 Viral antigen assay PERFORMANCE TEST ARCHITECT-C Romi Dwyer Work Phone: Start: 11-12-2021 CT of soft tissues o f neck with contrast PERFORMANCE TEST ARCHITECT-C Romi Dwyer Work Phone: Start: 10-06-2021 Plain chest X-ray PERFORMANCE TEST ARCHITECT-C Romi Dwyer Work Phone: Start: 09-27-2021 SARS-CoV-2 Antigen (Rapid) PERFORMANCE TEST ARCHITECT-C Romi Dwyer Work Phone: Start: 09-27-2021 Plain chest X-ray PERFORMANCE TEST ARCHITECT-C Romi Dwyer Work Phone: Start: 02-08-2019 Colonoscopy Jamal joyner CREDIT ADVISOR.CORRECTIONAL MAINTENANCE TECHNICIAN Work Phone: Start: 10-26-2016 Lipid 1996 panel - S mario or Plasma Jamal Viet CREDIT ADVISOR.CORRECTIONAL MAINTENANCE TECHNICIAN Work Phone: Plan of Treatment Date Care Activity Detail Author Start: 2028 Pneumococcal vaccination Pneumococcal Vaccine (3 of 3 - PPSV23 or PCV20) [facility] Start: 03-23-2028 Urine microalbumin profile DTaP,Tdap,Td Vaccine (4 - Td or Tdap) [facility] Start: 12-18-2026 Screening for malignant neoplasm of cervix Cervical Cancer Screening [facility] Start: 01-26-2025 [facility] Start: 2023 RSV Vaccine (1 - Risk 60-74 years 1-dose series) RSV Vaccine (1 - Risk 60-74 years 1-dose series) [facility] Start: 06-17-2023 Dual energy X-ray absorptiometry Dexa Bone Density Study [facility] Start: 02-08-2022 Screening for malignant neoplasm of colon [facility] Start: 10-26-2021 Lipid panel Lipid Screening [facility] Start: 10-26-2019 Diabetes Screening Diabetes Screening [facility] Start: 10-30-2017 Screening for malignant neoplasm of colon Fecal Occult Blood [facility] Start: 09-14-2017 Screening for malignant neoplasm of breast Mammogram Screening [facility] Start: 2013 Shingrix Vaccine (1 of 2) Shingrix Vaccine (1 of 2) [facility] Start: 2008 Screening for malignant neoplasm of colon [facility] Start: 1993 Zoledronic acid therapy Alpha-1 Antitrypsin Deficiency Screening [facility] Start: 1981 Annual PCP Team Chronic Disease Visit Annual PCP Team Chronic Disease Visit [facility] Start: 1981 Anxiety Screening Anxiety Screening [facility] Start: 1981 Spirometry Spirometry [facility] Path report.final Dx Spec [facility] Patient Education [facility] Work Phone: Patient referral [facility] Work Phone: Immunizations Immunization Date Immunization Notes Care Provider [facility] 10-10-2020 COVID-19 original vaccine, full dose, monovalent (MODERNA) Jamal Pendlebury CREDIT ADVISOR.CORRECTIONAL MAINTENANCE TECHNICIAN Work Phone: [facility] 09-12-2020 COVID-19 original vaccine, full dose, monovalent (MODERNA) Jamal Pendlebury CREDIT ADVISOR.CORRECTIONAL MAINTENANCE TECHNICIAN Work Phone: [facility] 08-24-2016 influenza, injectabl e, quadrivalent, contains preservative Jamal Pendlebury CREDIT ADVISOR.CORRECTIONAL MAINTENANCE TECHNICIAN Work Phone: [facility] 09-07-2015 influenza, injectabl e, quadrivalent, contains preservative Jamal Pendlebury CREDIT ADVISOR.CORRECTIONAL MAINTENANCE TECHNICIAN Work Phone: [facility] Work Phone: 09-07-2015 pneumococcal conjuga te vaccine, 13 valent Jamal Pendlebury CREDIT ADVISOR.CORRECTIONAL MAINTENANCE TECHNICIAN Work Phone: [facility] 01-27-2015 tetanus toxoid, reduced diphtheria toxoid, and acellular pertussis vaccine, adsorbed PERFORMANCE TEST ARCHITECT-C Romi Dwyer Work Phone: [facility] 08-27-2014 Influenza virus vaccine PERFORMANCE TEST ARCHITECT-C Romi Carlsons Work Phone: [facility] 08-27-2014 Pneumococcal Vaccine PERFORMANCE TEST ARCHITECT-C Maria Guadalupe Dwyer Work Phone: [facility] Work Phone: 08-27-2014 pneumococcal vaccine , unspecified formulation [facility] 08-13-2014 influenza, seasonal, injectable Jamal Pendlebury CREDIT ADVISOR.CORRECTIONAL MAINTENANCE TECHNICIAN Work Phone: [facility] 08-13-2014 pneumococcal conjuga te vaccine, 13 valent Jamal Pendlebury CREDIT ADVISOR.CORRECTIONAL MAINTENANCE TECHNICIAN Work Phone: [facility] Payers Date Payer Category Payer Unknown [id number] 2024 Self-pay [id number] 2023 Private Health Insurance [facility] CHOICE PLUS [id number] 2023-Present [phone] [address] [place] [address] HMO [id number] 2023 Private Health Insurance [id number] 2021 Unknown [id number] 2021 Unknown [id number] 2015 Unknown [id number] 1965 Unknown [id number] 1965 Unknown [id number] Unknown [id number] Unknown [id number] Unknown [id number] Unknown [id number] Unknown [id number] Unknown [id number] Unknown [id number] Unknown [id number] Social History Date Type Detail Facility Start: 11-12-2021 End: 11-14-2022 Tobacco smoking status WAIS Unknown if ever smoked [facility] Start: 02-06-2019 Non-smoker [facility] Start: 1965 Sex Assigned At Female [facility] Start: 02-16-2015 Rare [facility] Start: 02-16-2015 None [facility] Start: 07-09-2024 [facility] History of tobacco use Cigarette Smoker [facility] Start: 07-09-2024 Tobacco use and exposure Smokeless tobacco non-user [facility] Start: 07-09-2024 End: 07-22-2024 Alcoholic beverage intake Current non-drinker of alcohol (finding) [facility] Start: 02-13-2021 End: 07-09-2024 History of Social function [facility] Start: 02-13-2021 End: 07-09-2024 Tobacco use panel [facility] National Score (1-100), lower number is lower risk Not on file [facility] Start: 07-09-2024 Tobacco Comment 2 cigarette per day [facility] Start: 01-10-2014 Alcohol Comment occasionally [facility] Start: 1965 Sex assigned at Not on file [facility] Tobacco smoking status [facility] Start: 07-28-2024 Sex Female (finding) [facility] Start: 01-26-2025 [facility] Functional Status Date Assessment Result Facility 07-28-2024 Functional Status Independent [facility] 07-28-2024 Functional Status Independent [facility] Mental Status Date Assessment Result Facility 07-28-2024 Mental Status Orientation Oriented x 4 [facility] 07-28-2024 [facility] 11-12-2021 Cognitive function Level Of Cons ciousness Awake;Alert;Appropriate [facility] Work Phone: Clinical Notes 11-14-2022 to 01-26-2025 Jamal Llanos APRN.CORRECTIONAL MAINTENANCE TECHNICIAN - 07/22/2024 2:22 PM Jamal Sánchez APRN.CORRECTIONAL MAINTENANCE TECHNICIAN - 07/09/2024 2:38 PM EST Note Date & Type Note Facility 01-26-2025 Radiology Diagnostic study note [facility] Imaging Services [address] [place] [address] Chest 1 View (Portable) MR#: [id number] Acct: [id number] Name: BOAZ GOLDSTEIN Rep #: [id number] : 1965 F 59 From: [place] Self MD PCP: Dr. Hu Ricardo MD Status: REG E R Study:Chest 1 View (Portable) Date of Exam: 01/26/25 Exam# [id number] Ordering Dr: Aria Lewis DO PROCEDURE: CHEST 1 VIEW (PORTABLE) 01/26/2025 REASON FOR EXAM: COPD Shortness of breath TECHNIQUE: Frontal view of the chest. COMPARISON: Prior study dated July 15, 2024. FINDINGS: Hardware: None Heart: Cardiac and mediastinal contours are stable. Lungs: Hyperinflation. The lungs are clear. Bones: Degenerative changes are identified within the thoracic spine. Other: RAD/Chest 1 View (Portable) IMPRESSION: No Acute Findings. Reading Location: [facility] CC: Dr. Carlito Lewis DO; Dr. 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 A break in the skin, such as a cut or scratch, can let bacteria under the skin. If the bacteria get to deep layers of the skin, it can be serious. If not treated, cellulitis can get into the bloodstream and lymph nodes. The infection can then spread throughout the body. This causes serious illness. Cellulitis causes the affected skin to become red, swollen, warm, and sore. The reddened areas have a visible border. An open sore may leak fluid (pus). You may have a fever, chills, and pain. Cellulitis is treated with antibiotics taken for 7 to 10 days. An open sore may be cleaned and covered with cool wet gauze. Symptoms should get better 1 to 2 days after treatment is started. Make sure to take all the antibiotics for the full number of days until they are gone. Keep taking the medicine even if your symptoms go away. Home care Follow these tips: Limit the use of the part of your body with cellulitis. If the infection is on your leg, keep your leg raised while sitting. This will help to reduce swelling. Take all of the antibiotic medicine exactly as directed until it is gone. Do not miss any doses, especially during the first 7 days. Don t stop taking the medicine when your symptoms get better. Keep the affected area clean and dry. Wash your hands with soap and warm water before and after touching your skin. Anyone else who touches your skin should also wash his or her hands. Don't share towels. Follow-up care Follow up with your healthcare provider, or as advised. If your infection does not go away on the first antibiotic, your healthcare provider will prescribe a different one. When to seek medical advice Call your healthcare provider right away if any of these occur: Red areas that spread Swelling or pain that gets worse Fluid leaking from the skin (pus) Fever higher of 100.4 F (38.0 C) or higher after 2 days on antibiotics [id number] [employer] [address] [place] [address]. All rights reserved. This information is not intended as a substitute for professional medical care. Always follow your healthcare professional's instructions. Follow Up Care 07/28/2024 08:08:16 With:ZENAIDA RIVAS MD Address: [facility] [address] [place] [id number] When:2-4 days [facility] 07-28-2024 Note Discharge Instructions Thank you for allowing [facility] to assist you with your healthcare needs. The following is important discharge information regarding your hospital visit. Diagnosis from Today's Visit Preseptal cellulitis of left eye What to Do Next Instructions from Your Care Team No qualifying data available. Post Acute Orders No qualifying data available. You Need to Schedule the Following Appointments Follow Up with ZENAIDA RIVAS MD When:Within 2-4 days Where:[facility] [address] [facility] [address] [place] [address] Allergies Keflex hives Latex penicillin hives Medications Please ask your primary doctor or pharmacist before taking any other medication not listed, including over the counter drugs, herbal medications, vitamins and or supplements as they may interact with your home medications. What How Much When Why Instructions Last Dose New cefdinir (cefdinir 300 mg oral capsule) 1 cap by mouth Every 12 hours Preseptal cellulitis of left eye Duration: 7 Days Printed Prescription Please take this list to your next doctor s visit. Bring all medications you take, including over the counter medications, herbals and other supplements with you to your doctor s visit. Patients and families are reminded to discard old lists and to update any records with all medication providers or retail pharmacies. Education Materials Cellulitis Cellulitis is an infection of the deep layers of skin. A break in the skin, such as a cut or scratch, can let bacteria under the skin. If the bacteria get to deep layers of the skin, it can be serious. If not treated, cellulitis can get into the bloodstream and lymph nodes. The infection can then spread throughout the body. This causes serious illness. Cellulitis causes the affected skin to become red, swollen, warm, and sore. The reddened areas have a visible border. An open sore may leak fluid (pus). You may have a fever, chills, and pain. Cellulitis is treated with antibiotics taken for 7 to 10 days. An open sore may be cleaned and covered with cool wet gauze. Symptoms should get better 1 to 2 days after treatment is started. Make sure to take all the antibiotics for the full number of days until they are gone. Keep taking the medicine even if your symptoms go away. Home care Follow these tips: Limit the use of the part of your body with cellulitis. If the infection is on your leg, keep your leg raised while sitting. This will help to reduce swelling. Take all of the antibiotic medicine exactly as directed until it is gone. Do not miss any doses, especially during the first 7 days. Don t stop taking the medicine when your symptoms get better. Keep the affected area clean and dry. Wash your hands with soap and warm water before and after touching your skin. Anyone else who touches your skin should also wash his or her hands. Don't share towels. Follow-up care Follow up with your healthcare provider, or as advised. If your infection does not go away on the first antibiotic, your healthcare provider will prescribe a different one. When to seek medical advice Call your healthcare provider right away if any of these occur: Red areas that spread Swelling or pain that gets worse Fluid leaking from the skin (pus) Fever higher of 100.4 F (38.0 C) or higher after 2 days on antibiotics [id number] [employer] [address] [place] [address]. All rights reserved. This information is not intended as a substitute for professional medical care. Always follow your healthcare professional's instructions. Additional Information VACCINATE! IT SAVES LIVES! Members of the community who have not yet received the COVID-19 vaccine and would like to receive it can visit one of [facility] vaccine clinics. There are many vaccine clinic locations within the [facility]. For locations and available times, please visit [email or web address].[email or web address] [email or web address] It is important to note that some COVID mobile vaccine clinics are held outdoors and may be canceled in rainy or stormy conditions. To learn more about pediatric vaccinations (ages 5-11), we invite you to visit the [facility] webpage. https://www.[facility].org/p ages/7124-Unluu-Tcznjexialm-Freq zhdrue-Pszgb-Qjigbsfby.html To learn more about the COVID-19 vaccine, we invite you to visit the CDC website for a list of frequently asked questions. https://www.cdc.gov/coronavirus/ 2019-ncov/vaccines/faq.html [employer] Patient Portal Access Instructions: Stay connected with your healthcare team and access your personal medical information anytime with the [employer] Patient Portal. If you would like a full copy of your medical records please contact the [facility] Medical Records Department Wednesday through Wednesday between 8a.m. and 4:30p.m. Please follow the directions below to access the portal: 1.Access the email account you provided upon registration to the [facility].2.Look for an invitation email from [facility] [facility]3.Open the email and access the invitation link: Accept Invitation to [email or web address].Fill in the required santana to create your account. Sign into [email or web address] with your username and password that you created in the above steps to stay up to date. You can then view a summary of results, a summary of your visits, and the ability to download your summaries to your computer or send the information securely to a physician. Remember that your healthcare information is confidential, so carefully consider who you will allow to register on the [employer] Patient Portal for access to your information. You can also access the [employer] Patient Portal on the [employer]. Simply click on Health Records under Health Data and then click on the [employer] logo. HOW TO SAFELY DISPOSE OF PRESCRIPTION MEDICATIONS Please use one of the following methods to safely dispose of your unused medications. 1.Use a drug disposal kit: the drug disposal pouch allows you to safely discard your old and unused drugs. Ask your nurse to give you one when you are discharged.2.Visit a local take-back location: Many local pharmacies and police departments have programs that collect old and unwanted prescription drugs. Call your local pharmacy or go to [email or web address] to find one close to you.3.Make use of household items: Use cat litter or old coffee grounds to dispose medications if other options are not available. Mix your drugs with these household products, seal them in an airtight container and throw it into the garbage. Call [facility]: [phone] to be sure your drugs can be disposed of in this way. Some medicines may require a different approach.4.Never flush your medications down the toilet. IF YOU HAVE BEEN PRESCRIBED AN OPIOIDS FOR PAIN If you have been prescribed an opioid (such as hydrocodone, oxycodone or morphine), it is critical to understand the possible side effects and risks of opioid pain medications. Even when taken as directed, opioids can have several side effects including: Tolerance, meaning you might need to take more of a medication for the same pain relief. Nausea, vomiting and/or constipation. Sleepiness, dizziness, dry mouth, confusion, depression or itching. Physical dependence, meaning you have withdrawal symptoms when a medication is stopped ? this can develop within a few days. KNOW YOUR RESPONSIBILITIES It is important to know exactly how much and how often to take the opioid pain medications you are prescribed. Never take opioids in higher amounts or more often than prescribed. Do not combine opioids with alcohol or other drugs that cause drowsiness, such as benzodiazepines, also known as benzos, including diazepam and alprazolam, muscle relaxants or sleep aids. Never sell or share prescription opioids. This is illegal. Store opioids in a secure place and out of reach of others (including children, family, friends and visitors). The last page(s) of this document has been signed and retained as a CHART COPY Signatures Patient Education Materials Cellulitis Skin Infection Medication Leaflets My discharge plan and instructions have been reviewed and explained to me and I,BOAZ GOLDSTEIN M understand my current condition and have read and understand these discharge instructions. I have received a written copy of the plan/instructions. If I have questions, I am aware that I should contact my doctor. Patient/Hair Preparer Signature: Date/Time: Relationship to Patient: Witness Name/Signature: Date/Time: [facility] 07-22-2024 Note HNO ID: [id number] Author: JAMAL LLANOS APRN.CORRECTIONAL MAINTENANCE TECHNICIAN Service: ? Author Type: Nurse Practitioner Type: Progress Notes Filed: 07/22/2024 14:26 Note Text: Subjective HPI Nontoxic-appearing female presents urgent care chief complaint left eye redness. Does have some itching. Did use some eyedrops this morning this did help. Denies any eye pain flashes light or floaters visual changes or drainage. No known sick contacts. Denies any fevers. Past medical history prescription medications allergies reviewed. .Patient presents with: Eye Problem: left eye itching x this am PAST MEDICAL HISTORY Diagnosis Date Asthma Asthma, mild intermittent 01/10/2014 Chronic obstructive pulmonary disease (COPD) (HCC) Depression Elbow fracture 02/2015 left GERD (gastroesophageal reflux disease) Hyperlipidemia Hypothyroidism Kidney disease Scoliosis Snoring PAST SURGICAL HISTORY Procedure Laterality Date DELIVERY ONLY , low transverse x 2 COLONOSCOPY 06/08/2014 + polyps, repeat 5 yrs COLSC FLX W/REMOVAL LESION BY HOT BX FORCEPS 12/15/2016 adenomatous polyp - 3 year follow up EGD TRANSORAL BIOPSY SINGLE/MULTIPLE 12/15/2016 reflux esophagitis LAPS SURG CHOLECYSTECTOMY W/CHOLANGIOGRAPHY 01/15/15 normal IOC PAST SURGICAL 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 atorvastatin (LIPITOR) 10 mg tablet Take 10 mg by mouth daily at bedtime. levothyroxine (SYNTHROID) 150 mcg tablet Take 150 mcg by mouth once daily. VENTOLIN HFA 90 mcg/actuation inhaler INHALE TWO(2) PUFFS BY MOUTH EVERY 6 HOURS NEEDED aspirin, enteric coated (ASPIRIN, ENTERIC COATED) 81 mg EC tablet TAKE 1 TABLET BY MOUTH ONCE DAILY. loratadine (CLARITIN) 10 mg tablet Take 1 tablet by mouth once daily. (Patient not taking: Reported on 07/09/2024) levothyroxine (SYNTHROID) 137 mcg tablet TAKE 1 TABLET BY MOUTH ONCE DAILY. (Patient not taking: Reported on 07/09/2024) budesonide-formoterol (SYMBICORT) 160-4.5 mcg/actuation inhaler Inhale 2 Puffs as instructed twice daily. (Patient not taking: Reported on 07/09/2024) FAMILY HISTORY Problem Relation Age of Onset Diabetes Mother Cancer Mother lung Hypertension Mother Cancer Maternal Grandmother lung Cancer Sister cervical Seizures Sister Coronary Artery Disease Father had 3 DE's Diabetes Sister Thyroid Child daughter Social History Tobacco Use Smoking status: Light Smoker Types: Cigarettes Smokeless tobacco: Never Tobacco comments: 2 cigarette per day Substance Use Topics Alcohol use: No Comment: occasionally Drug use: No BP 124/80 Pulse 94 Temp 36.5 ?C (97.7 ?F) Resp 16 Wt 98 kg (216 lb 0.8 oz) SpO2 97% BMI 33.91 kg/m? Review of Systems Constitutional: Negative for chills, fever and malaise/fatigue. HENT: Negative for congestion, ear discharge, ear pain, sinus pain and sore throat. Eyes: Positive for discharge and redness. Negative for blurred vision, double vision, photophobia and pain. Respiratory: Negative for cough, hemoptysis, sputum production, shortness of breath, wheezing and stridor. Cardiovascular: Negative for chest pain. Gastrointestinal: Negative for abdominal pain, diarrhea, nausea and vomiting. Musculoskeletal: Negative for myalgias. Skin: Negative for itching and rash. Neurological: Negative for dizziness and headaches. Objective Physical Exam Constitutional: General: She is not in acute distress. Appearance: She is not diaphoretic. HENT: Head: Normocephalic. Jaw: No trismus, tenderness, swelling or pain on movement. Mouth/Throat: Mouth: Mucous membranes are moist. Pharynx: Oropharynx is clear. Uvula midline. No pharyngeal swelling, oropharyngeal exudate, posterior oropharyngeal erythema or uvula swelling. Eyes: General: Lids are normal. Lids are everted, no foreign bodies appreciated. Vision grossly intact. Right eye: No foreign body, discharge or hordeolum. Left eye: Discharge present.No foreign body or hordeolum. Conjunctiva/sclera: Right eye: Right conjunctiva is not injected. No chemosis, exudate or hemorrhage. Left eye: Left conjunctiva is injected. No chemosis, exudate or hemorrhage. Pupils: Pupils are equal, round, and reactive to light. Comments: Limbus clear. Visual acuity unchanged. No evidence of orbital or periorbital cellulitis. Cardiovascular: Rate and Rhythm: Normal rate and regular rhythm. Heart sounds: Normal heart sounds. Pulmonary: Effort: Pulmonary effort is normal. No tachypnea, accessory muscle usage or respiratory distress. Breath sounds: Normal breath sounds. No stridor. No wheezing, rhonchi or rales. Musculoskeletal: Cervical back: Normal range of motion and neck supple. No edema, erythema, rigidity or tenderness. No pa (more content not included)... [facility] 07-22-2024 History of Present illness Narrative Subjective HPI Nontoxic-appearing female presents urgent care chief complaint left eye redness. Does have some itching. Did use some eyedrops this morning this did help. Denies any eye pain flashes light or floaters visual changes or drainage. No known sick contacts. Denies any fevers. Past medical history prescription medications allergies reviewed. .Patient presents with: Eye Problem: left eye itching x this am PAST MEDICAL HISTORY Diagnosis Date Asthma Asthma, mild intermittent 01/10/2014 Chronic obstructive pulmonary disease (COPD) (HCC) Depression Elbow fracture 02/2015 left GERD (gastroesophageal reflux disease) Hyperlipidemia Hypothyroidism Kidney disease Scoliosis Snoring PAST SURGICAL HISTORY Procedure Laterality Date DELIVERY ONLY , low transverse x 2 COLONOSCOPY 06/08/2014 + polyps, repeat 5 yrs COLSC FLX W/REMOVAL LESION BY HOT BX FORCEPS 12/15/2016 adenomatous polyp - 3 year follow up EGD TRANSORAL BIOPSY SINGLE/MULTIPLE 12/15/2016 reflux esophagitis LAPS SURG CHOLECYSTECTOMY W/CHOLANGIOGRAPHY 01/15/15 normal IOC PAST SURGICAL 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 atorvastatin (LIPITOR) 10 mg tablet Take 10 mg by mouth daily at bedtime. levothyroxine (SYNTHROID) 150 mcg tablet Take 150 mcg by mouth once daily. VENTOLIN HFA 90 mcg/actuation inhaler INHALE TWO(2) PUFFS BY MOUTH EVERY 6 HOURS NEEDED aspirin, enteric coated (ASPIRIN, ENTERIC COATED) 81 mg EC tablet TAKE 1 TABLET BY MOUTH ONCE DAILY. loratadine (CLARITIN) 10 mg tablet Take 1 tablet by mouth once daily. (Patient not taking: Reported on 07/09/2024) levothyroxine (SYNTHROID) 137 mcg tablet TAKE 1 TABLET BY MOUTH ONCE DAILY. (Patient not taking: Reported on 07/09/2024) budesonide-formoterol (SYMBICORT) 160-4.5 mcg/actuation inhaler Inhale 2 Puffs as instructed twice daily. (Patient not taking: Reported on 07/09/2024) FAMILY HISTORY Problem Relation Age of Onset Diabetes Mother Cancer Mother lung Hypertension Mother Cancer Maternal Grandmother lung Cancer Sister cervical Seizures Sister Coronary Artery Disease Father had 3 DE's Diabetes Sister Thyroid Child daughter Social History Tobacco Use Smoking status: Light Smoker Types: Cigarettes Smokeless tobacco: Never Tobacco comments: 2 cigarette per day Substance Use Topics Alcohol use: No Comment: occasionally Drug use: No BP 124/80 Pulse 94 Temp 36.5 C (97.7 F) Resp 16 Wt 98 kg (216 lb 0.8 oz) SpO2 97% BMI 33.91 kg/m Review of Systems Constitutional: Negative for chills, fever and malaise/fatigue. HENT: Negative for congestion, ear discharge, ear pain, sinus pain and sore throat. Eyes: Positive for discharge and redness. Negative for blurred vision, double vision, photophobia and pain. Respiratory: Negative for cough, hemoptysis, sputum production, shortness of breath, wheezing and stridor. Cardiovascular: Negative for chest pain. Gastrointestinal: Negative for abdominal pain, diarrhea, nausea and vomiting. Musculoskeletal: Negative for myalgias. Skin: Negative for itching and rash. Neurological: Negative for dizziness and headaches. Objective Physical Exam Constitutional: General: She is not in acute distress. Appearance: She is not diaphoretic. HENT: Head: Normocephalic. Jaw: No trismus, tenderness, swelling or pain on movement. Mouth/Throat: Mouth: Mucous membranes are moist. Pharynx: Oropharynx is clear. Uvula midline. No pharyngeal swelling, oropharyngeal exudate, posterior oropharyngeal erythema or uvula swelling. Eyes: General: Lids are normal. Lids are everted, no foreign bodies appreciated. Vision grossly intact. Right eye: No foreign body, discharge or hordeolum. Left eye: Discharge present.No foreign body or hordeolum. Conjunctiva/sclera: Right eye: Right conjunctiva is not injected. No chemosis, exudate or hemorrhage. Left eye: Left conjunctiva is injected. No chemosis, exudate or hemorrhage. Pupils: Pupils are equal, round, and reactive to light. Comments: Limbus clear. Visual acuity unchanged. No evidence of orbital or periorbital cellulitis. Cardiovascular: Rate and Rhythm: Normal rate and regular rhythm. Heart sounds: Normal heart sounds. Pulmonary: Effort: Pulmonary effort is normal. No tachypnea, accessory muscle usage or respiratory distress. Breath sounds: Normal breath sounds. No stridor. No wheezing, rhonchi or rales. Musculoskeletal: Cervical back: Normal range of motion and neck supple. No edema, erythema, rigidity or tenderness. No pain with movement. Normal range of motion. Lymphadenopathy: Cervical: No cervical adenopathy. Skin: General: Skin is warm and dry. Neurological: Mental Status: She is alert and oriented to person, place, and time. ASSESSMENT/PLAN: 1. Red eye - ICD9: 379.93, ICD10: H57.89 Diagnosed with eye redness. Viral conjunctivitis versus bacterial versus allergic. Erythromycin ophthalmic symptom pharmacy. Red flags for optimal evaluation discussed. Patient was educated on supportive therapies. Patient will follow up with primary care provider as needed. Patient was instructed to immediately proceed to emergency room for any new, worsening, or symptoms lasting longer than anticipated. The patient's clinical presentation is otherwise unremarkable at this time. Based on exam and clinical finding, the patient is stable for discharge. Plan of care was discussed with patient. Patient verbalizes understanding and agrees to plan of care. This note was generated using [employer] software. It may contain errors in wording, punctuation, or spelling. Jamal Llanos APRN.CORRECTIONAL MAINTENANCE TECHNICIAN documented in this encounter [facility] 07-09-2024 Note HNO ID: [id number] Author: JAMAL LLANOS APRN.CORRECTIONAL MAINTENANCE TECHNICIAN Service: ? Author Type: Nurse Practitioner Type: Progress Notes Filed: 07/09/2024 14:51 Note Text: Subjective HPI Nontoxic-appearing female presents urgent care chief complaint head congestion cough chest congestion shortness of breath. Has had increased sputum production. OTC medications none. Sick contacts work. Risk factors COPD asthma. Has been using rescue inhalers more. Has helped a little. Denies any hemoptysis pleuritic pain. No high fevers. Past medical history prescription medications allergies reviewed. .Patient presents with: Cough: Head and chest congestion, SOB x1 week PAST MEDICAL HISTORY Diagnosis Date Asthma Asthma, mild intermittent 01/10/2014 Chronic obstructive pulmonary disease (COPD) (HCC) Depression Elbow fracture 02/2015 left GERD (gastroesophageal reflux disease) Hyperlipidemia Hypothyroidism Kidney disease Scoliosis Snoring PAST SURGICAL HISTORY Procedure Laterality Date DELIVERY ONLY , low transverse x 2 COLONOSCOPY 06/08/2014 + polyps, repeat 5 yrs COLSC FLX W/REMOVAL LESION BY HOT BX FORCEPS 12/15/2016 adenomatous polyp - 3 year follow up EGD TRANSORAL BIOPSY SINGLE/MULTIPLE 12/15/2016 reflux esophagitis LAPS SURG CHOLECYSTECTOMY W/CHOLANGIOGRAPHY 01/15/15 normal IOC PAST SURGICAL 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 atorvastatin (LIPITOR) 10 mg tablet Take 10 mg by mouth daily at bedtime. levothyroxine (SYNTHROID) 150 mcg tablet Take 150 mcg by mouth once daily. VENTOLIN HFA 90 mcg/actuation inhaler INHALE TWO(2) PUFFS BY MOUTH EVERY 6 HOURS NEEDED aspirin, enteric coated (ASPIRIN, ENTERIC COATED) 81 mg EC tablet TAKE 1 TABLET BY MOUTH ONCE DAILY. loratadine (CLARITIN) 10 mg tablet Take 1 tablet by mouth once daily. (Patient not taking: Reported on 07/09/2024) levothyroxine (SYNTHROID) 137 mcg tablet TAKE 1 TABLET BY MOUTH ONCE DAILY. (Patient not taking: Reported on 07/09/2024) budesonide-formoterol (SYMBICORT) 160-4.5 mcg/actuation inhaler Inhale 2 Puffs as instructed twice daily. (Patient not taking: Reported on 07/09/2024) FAMILY HISTORY Problem Relation Age of Onset Diabetes Mother Cancer Mother lung Hypertension Mother Cancer Maternal Grandmother lung Cancer Sister cervical Seizures Sister Coronary Artery Disease Father had 3 DE's Diabetes Sister Thyroid Child daughter Social History Tobacco Use Smoking status: Light Smoker Types: Cigarettes Smokeless tobacco: Never Tobacco comments: 2 cigarette per day Substance Use Topics Alcohol use: No Comment: occasionally Drug use: No BP 150/83 Pulse 82 Temp 36.7 ?C (98 ?F) Resp 20 Wt 97.1 kg (214 lb 1.1 oz) SpO2 96% BMI 33.60 kg/m? Review of Systems Constitutional: Positive for malaise/fatigue. Negative for chills and fever. HENT: Positive for congestion. Negative for ear discharge, ear pain, sinus pain and sore throat. Eyes: Negative for blurred vision, pain, discharge and redness. Respiratory: Positive for cough, sputum production and shortness of breath. Negative for hemoptysis, wheezing and stridor. Cardiovascular: Negative for chest pain. Gastrointestinal: Negative for abdominal pain, diarrhea, nausea and vomiting. Musculoskeletal: Positive for myalgias. Skin: Negative for itching and rash. Neurological: Negative for dizziness and headaches. Objective Physical Exam Constitutional: General: She is not in acute distress. Appearance: She is not diaphoretic. HENT: Head: Normocephalic. Jaw: No trismus, tenderness, swelling or pain on movement. Mouth/Throat: Mouth: Mucous membranes are moist. Pharynx: Oropharynx is clear. Uvula midline. No pharyngeal swelling, oropharyngeal exudate, posterior oropharyngeal erythema or uvula swelling. Eyes: Conjunctiva/sclera: Conjunctivae normal. Pupils: Pupils are equal, round, and reactive to light. Cardiovascular: Rate and Rhythm: Normal rate and regular rhythm. Heart sounds: Normal heart sounds. Pulmonary: Effort: Pulmonary effort is normal. No tachypnea, accessory muscle usage or respiratory distress. Breath sounds: No stridor. Wheezing present. No rhonchi or rales. Abdominal: General: There is no distension. Palpations: Abdomen is soft. Tenderness: There is no abdominal tenderness. There is no guarding or rebound. Musculoskeletal: Cervical back: Normal range of motion and neck supple. No edema, erythema, rigidity or tenderness. No pain with movement. Normal range of motion. Lymphadenopathy: Cervical: No cervical adenopathy. Skin: General: Skin is warm and dry. Neurological: Mental Status: She is alert and oriented to person, place, and time. ASSESSMENT/PLAN: (more content not included)... [facility] 07-09-2024 History of Present illness Narrative Subjective HPI Nontoxic-appearing female presents urgent care chief complaint head congestion cough chest congestion shortness of breath. Has had increased sputum production. OTC medications none. Sick contacts work. Risk factors COPD asthma. Has been using rescue inhalers more. Has helped a little. Denies any hemoptysis pleuritic pain. No high fevers. Past medical history prescription medications allergies reviewed. .Patient presents with: Cough: Head and chest congestion, SOB x1 week PAST MEDICAL HISTORY Diagnosis Date Asthma Asthma, mild intermittent 01/10/2014 Chronic obstructive pulmonary disease (COPD) (HCC) Depression Elbow fracture 02/2015 left GERD (gastroesophageal reflux disease) Hyperlipidemia Hypothyroidism Kidney disease Scoliosis Snoring PAST SURGICAL HISTORY Procedure Laterality Date DELIVERY ONLY , low transverse x 2 COLONOSCOPY 06/08/2014 + polyps, repeat 5 yrs COLSC FLX W/REMOVAL LESION BY HOT BX FORCEPS 12/15/2016 adenomatous polyp - 3 year follow up EGD TRANSORAL BIOPSY SINGLE/MULTIPLE 12/15/2016 reflux esophagitis LAPS SURG CHOLECYSTECTOMY W/CHOLANGIOGRAPHY 01/15/15 normal IOC PAST SURGICAL 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 atorvastatin (LIPITOR) 10 mg tablet Take 10 mg by mouth daily at bedtime. levothyroxine (SYNTHROID) 150 mcg tablet Take 150 mcg by mouth once daily. VENTOLIN HFA 90 mcg/actuation inhaler INHALE TWO(2) PUFFS BY MOUTH EVERY 6 HOURS NEEDED aspirin, enteric coated (ASPIRIN, ENTERIC COATED) 81 mg EC tablet TAKE 1 TABLET BY MOUTH ONCE DAILY. loratadine (CLARITIN) 10 mg tablet Take 1 tablet by mouth once daily. (Patient not taking: Reported on 07/09/2024) levothyroxine (SYNTHROID) 137 mcg tablet TAKE 1 TABLET BY MOUTH ONCE DAILY. (Patient not taking: Reported on 07/09/2024) budesonide-formoterol (SYMBICORT) 160-4.5 mcg/actuation inhaler Inhale 2 Puffs as instructed twice daily. (Patient not taking: Reported on 07/09/2024) FAMILY HISTORY Problem Relation Age of Onset Diabetes Mother Cancer Mother lung Hypertension Mother Cancer Maternal Grandmother lung Cancer Sister cervical Seizures Sister Coronary Artery Disease Father had 3 DE's Diabetes Sister Thyroid Child daughter Social History Tobacco Use Smoking status: Light Smoker Types: Cigarettes Smokeless tobacco: Never Tobacco comments: 2 cigarette per day Substance Use Topics Alcohol use: No Comment: occasionally Drug use: No BP 150/83 Pulse 82 Temp 36.7 C (98 F) Resp 20 Wt 97.1 kg (214 lb 1.1 oz) SpO2 96% BMI 33.60 kg/m Review of Systems Constitutional: Positive for malaise/fatigue. Negative for chills and fever. HENT: Positive for congestion. Negative for ear discharge, ear pain, sinus pain and sore throat. Eyes: Negative for blurred vision, pain, discharge and redness. Respiratory: Positive for cough, sputum production and shortness of breath. Negative for hemoptysis, wheezing and stridor. Cardiovascular: Negative for chest pain. Gastrointestinal: Negative for abdominal pain, diarrhea, nausea and vomiting. Musculoskeletal: Positive for myalgias. Skin: Negative for itching and rash. Neurological: Negative for dizziness and headaches. Objective Physical Exam Constitutional: General: She is not in acute distress. Appearance: She is not diaphoretic. HENT: Head: Normocephalic. Jaw: No trismus, tenderness, swelling or pain on movement. Mouth/Throat: Mouth: Mucous membranes are moist. Pharynx: Oropharynx is clear. Uvula midline. No pharyngeal swelling, oropharyngeal exudate, posterior oropharyngeal erythema or uvula swelling. Eyes: Conjunctiva/sclera: Conjunctivae normal. Pupils: Pupils are equal, round, and reactive to light. Cardiovascular: Rate and Rhythm: Normal rate and regular rhythm. Heart sounds: Normal heart sounds. Pulmonary: Effort: Pulmonary effort is normal. No tachypnea, accessory muscle usage or respiratory distress. Breath sounds: No stridor. Wheezing present. No rhonchi or rales. Abdominal: General: There is no distension. Palpations: Abdomen is soft. Tenderness: There is no abdominal tenderness. There is no guarding or rebound. Musculoskeletal: Cervical back: Normal range of motion and neck supple. No edema, erythema, rigidity or tenderness. No pain with movement. Normal range of motion. Lymphadenopathy: Cervical: No cervical adenopathy. Skin: General: Skin is warm and dry. Neurological: Mental Status: She is alert and oriented to person, place, and time. ASSESSMENT/PLAN: 1. COPD with exacerbation ([facility]) - ICD9: 491.21, ICD10: J44.1 Diagnosed with COPD exacerbation. Placed on doxycycline and prednisone. Follow-up with PCP 2 days reevaluation. Patient was educated on supportive therapies. Patient was instructed to immediately proceed to emergency room for any new, worsening, or symptoms lasting longer than anticipated. The patient's clinical presentation is otherwise unremarkable at this time. Based on exam and clinical finding, the patient is stable for discharge. Plan of care was discussed with patient. Patient verbalizes understanding and agrees to plan of care. This note was generated using [employer] software. It may contain errors in wording, punctuation, or spelling. Jamal Llanos APRN.CORRECTIONAL MAINTENANCE TECHNICIAN documented in this encounter [facility] 02-23-2024 Note [facility] Medical Records Department [address] [place] [address] History Physical Exam 02/23/24 0759 MR#: [id number] Acct: [id number] Name: BOAZ GOLDSTEIN Rep #: [id number] : 1965 58 From: Jazmine Contreras MD PCP: Dr. Hu Ricardo MD Status:[place] [facility] [place] [address] HPI - General General Date of Service: 02/23/24 HPI Narrative BOAZ GOLDSTEIN, is a 58 F who presents for screening colonoscopy due to history of colon polyps, hemorrhoids. Patient last colonoscopy was 01/2019 patient had 2 polyps that time tubular adenoma and hyperplastic. Patient's maternal grandmother had colon cancer. Patient still has occasional bright red blood per rectum which has been chronic for her small amount. Patient otherwise denies any chronic abdominal pain/nausea/vomiting. [facility] Medical History (Updated 02/23/24 @ 08:[address] Jazmine Contreras MD) Alcohol use Abscessed tooth Post-menopausal Depression Anemia High cholesterol Easy bruising Gastric reflux Smoker Shortness of breath on exertion Hx of colonic polyps Hypertension history excision abdominal wall tumor Blood in stool Acid reflux Laryngeal mass History of abnormal cervical Pap smear History Gallbladder Removal History of benign neoplasm of stomach History of bloody stools Anxiety Hyperthyroidism Scoliosis Asthma Tobacco abuse Hypothyroid COPD (chronic obstructive pulmonary disease) 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 Home Medications ???Medication ???Instructions ???Recorded ???Last Taken ???Type amlodipine 5 mg tablet 5 mg PO DAILY #90 tabs 05/07/22 Unknown Rx aspirin 81 mg capsule 81 mg PO DAILY #90 caps 05/07/22 Unknown Rx atorvastatin 10 mg tablet 10 mg PO QHS #90 tabs 05/07/22 Unknown Rx levothyroxine 150 mcg tablet 150 mcg PO DAILY #90 tabs 05/07/22 Unknown Rx albuterol sulfate 90 mcg/actuation 2 puff inhalation Q4H PRN PRN 02/17/24 Unknown History aerosol inhaler shortness of breath or wheezing Allergy/AdvReac Type Severity Reaction Status Date / Time cephalexin monohydrate (From Allergy Hives Verified 02/23/24 08:01 Keflex) latex Allergy Rash Verified 02/23/24 08:01 Penicillins (PCN) Allergy Hives Verified 02/23/24 08:01 Family History (Updated 12/16/23 @ 11:58 by Kary Dinero) Grandfather Kidney disease Heart disease Colon cancer Sister Lung cancer Seizures Mother Cancer Diabetes Daughter Hypertension Thyroid disorder Surgical History Hx of colonoscopy History of cholecystectomy History of delivery Social History Smoking Status: Current every day smoker tobacco type: cigarettes second hand exposure: Yes quit status: not considering quitting alcohol intake: never substance use type: does not use caffeine: Yes what type of physical activity do you participate in: none seatbelt use: always do you feel safe at home: Yes additional social history: Employed Self reliance single Past Medical/Surgical History Planned Operation Planned Operative Procedure(s): CSCOPE OA S.O.S: No Previous Hospitalizations/Surgeries HX Hospitalizations: No HX of Surgeries: 2 C SECTIONS TUMOR REMOVED FROM RT SIDE OF STOMACH WALL-2003 GALLBLADDER,direct laryngoscopy 2018 Any Problems With Anesthesia: No You/Your Family Experience Fever (Hyperthermia) With Anes: No Cholinesterase deficiency: No Cardiovascular Hx Chest Pain within Last 2 months: No Hx of Irregular Heartbeat and/or Afib: No Hx Heart Attack: No Hx Congestive Heart Failure: No Hx Rheumatic Fever: No Hx Hypertension: Yes (CONTROLLED WITH MED) Hx Internal Defibrillator: No Hx Pacemaker: No Hx Cardiac Catheterization: No Hx Cardiac Surgery/Stents/Etc.: No Hx Stress Test: Yes (over 5 yrs ago) Hx Pain in Legs when Walking/Leg Cramps: Yes Respiratory Chronic Cough: Yes HX of Shortness of Breath: Yes (SOB WITH 2 FLIGHTS OF STAIRS) Hoarseness: Yes Hx Chronic Obstructive Pulmonary Disease (COPD): No Hx Asthma: Yes (PRN INHALER) Hx Emphysema: No Hx Sleep Apnea: No CPAP: No BIPAP: No Hx Respiratory Tract Infection/Cold (presently): No Do You Snore Loudly (louder than talking or can be heard): No Do You Often Feel Tired/ Fatigued/ Sleepy Dring Daytime?: Yes Has Anyone Observed You Stop Breathing During Sleep?: No Result (for STOP score): Positive Hx Smoking: Yes (QUIT 1 yr ago/1.5 PPD FOR 38 YRS) Smoking Status: Current every day smoker Gastrointestinal Controlled With Meds: Yes (.) Hx Gastrointestinal Disorders: No Hx Gastrointestinal Bleed: No Hx Ulcer: No Hx Hiatal Hernia: No Difficulty Chewing/Swallowing: No (.) Special diet followed at home: No Hx Unplanned Weight Loss of 20#: No HX Unplanned Weight Gain of 20#: No Neurological Hx Seizures: No HX (more content not included)... [facility] 06-07-2023 Note [facility] Pap Smear Specimen Adequacy June 07, 2023 3:15pm Comment . Satisfactory for evaluation. Endocervical and/or squamous metaplasticcells (endocervical component) are present. Comment on above: Satisfactory for tyrese luation. Endocervical and/or squamous metaplasticcells (endocervical component) are present. 06-07-2023 Note [facility] Pap Smear Specimen Adequacy June 07, 2023 2:15pm Comment . Satisfactory for evaluation. Endocervical and/or squamous metaplasticcells (endocervical component) are present. Comment on above: Satisfactory for tyrese luation. Endocervical and/or squamous metaplasticcells (endocervical component) are present. 11-14-2022 Discharge summary Note Date/Time November 14, 2022 3:51pm [facility] Medical Records Department [address] [place] [address] Emergency Department Summary 11/14/22 MR#: [id number] Acct: [id number] Name: BOAZ GOLDSTEIN Rep #:[id number] : 1965 57 From: Luis Miguel Pan MD PCP: Dr. Zuly Cantor MD Status:REG ER Location: ED HPI History of Present Illness Chief Complaint: Shortness of Breath Narrative Narrative: 57-year-old female past medical history of asthma, states she has had cough and dyspnea on exertion for the last 4 weeks. She is coughing up greenish-yellow sputum. She states her chest feels tight but she denies any chest pain. She has been using her inhaler without relief of her symptoms. She states has been at least a month since she has been on steroids for her breathing. Of note, shewas a smoker of 2 packs a day and is down to 3 to 6 cigarettes a day. She denies any fevers or chills. No current leg swelling, no DVT or PE risk factors. [facility] Medical History Acid reflux Anxiety Asthma Blood in stool COPD (chronic obstructive pulmonary disease) 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 history excision abdominal wall tumor History Gallbladder Removal History of abnormal cervical Pap smear History of back problems History of benign neoplasm of stomach History of bloody stools Hypertension Hyperthyroidism Hypothyroid Laryngeal mass Scoliosis Seasonal allergies Tobacco abuse Home Medications pantoprazole 40 mg tablet,delayed release 40 mg PO DAILY 01/29/22 [History Last Taken Unknown] amlodipine 5 mg tablet 5 mg PO DAILY #90 tabs 05/07/22 [Rx Last Taken Unknown] aspirin 81 mg capsule 81 mg PO DAILY #90 caps 05/07/22 [Rx Last Taken Unknown] atorvastatin 10 mg tablet 10 mg PO QHS #90 tabs 05/07/22 [Rx Last Taken Unknown] levothyroxine 150 mcg tablet 150 mcg PO DAILY #90 tabs 05/07/22 [Rx Last Taken Unknown] azithromycin 250 mg tablet See Rx Instructions PO .COMPLEX #6 tabs 11/14/22 [Rx Last Taken Unknown] prednisone 20 mg tablet 40 mg PO DAILY #20 tabs 11/14/22 [Rx Last Taken Unknown] Allergy/AdvReac Type Severity Reaction Status Date / Time cephalexin monohydrate Allergy Hives Verified 11/14/22 15:36 [From Keflex] latex Allergy Rash Verified 11/14/22 15:36 Penicillins [PCN] Allergy Hives Verified 11/14/22 15:36 Family History Grandmother Colon cancer Grandfather Kidney disease Heart disease Sister Lung cancer Seizures Mother Cancer Diabetes Daughter Hypertension Thyroid disorder Surgical History History of delivery History of cholecystectomy Social History Smoking Status: Current every day smoker tobacco type: cigarettes second hand exposure: Yes quit status: not considering quitting alcohol intake: never substance use type: does not use caffeine: Yes what type of physical activity do you participate in: none seatbelt use: always do you feel safe at home: Yes additional social history: Employed Self reliance single ROS ROS ED ROS Narrative Constitutional: No fever, no chills. HEENT: No sore throat. No neck pain. No loss of vision. Positive nasal congestion alternating with rhinorrhea. Cardiovascular: No chest pain. No palpitations. No pedal edema. Respiratory: Positive productive cough of green to yellow sputum, positive dyspnea on exertion and shortness of breath with chest tightness. Abdominal: No abdominal pain. No nausea. No vomiting. Genitourinary: No dysuria. No hematuria. Musculoskeletal: No myalgias. No arthralgias. Neurologic: No headaches. No dizziness. No lightheadedness. Skin: No rash. No change in color. Psychiatric: No depression. No anxiety. EXAM Physical Exam Narrative Exam Narrative: Afebrile. Vital signs noted. HEENT: Normocephalic. Atraumatic. PERRL, EOMI. Neck soft and supple. No point tenderness or step off. Cardiovascular: Regular rate and rhythm. No murmurs, rubs, or gallops appreciated. Respiratory: No tachypnea. Moving a fair amount of air. Is able to speak in full sentences. No accessory muscle use. Coughs on examination. Occasional expiratory wheeze. Gastrointestinal: Abdomen soft, nontender, with normoactive bowel sounds. No rebound or guarding. Neurological: Awake. Alert. Nonfocal, nonlateralizing. Skin: No rash. Normal color. No pallor. Musculoskeletal: No pedal edema. Full range of motion extremities. Const Vital Signs: 11/14/22 15:31 11/14/22 15:30 11/14/22 15:30 Temperature 96.7 F L Temperature Source Temporal Pulse Rate 103 H 98 Respiratory Rate 18 Respiratory Effort Short of Breath Respiratory Depth Shallow Respiratory Pattern Tachypnea Blood Pressure 134/75 H Blood Pressure Mean 94 Pulse Ox 95 Oxygen Delivery Method Room Air Room Air 11/14/22 15:52 11/14/22 16:39 Temperature Temperature Source Pulse Rate 89 87 Respiratory Rate 18 22 H Respiratory Effort Respiratory Depth Respiratory Pattern Normal Blood Pressure 126/57 H Blood Pressure Mean 80 Pulse Ox 96 Oxygen Delivery Method Room Air MDM MDM MDM Narrative Medical decision making narrative: I reviewed her prior records, she does have history of COPD. I do feel this may be more of a COPD exacerbation/asthma exacerbation. In the differential diagnosis, although lower, would be congestive heart failure. Additionally, she may have developed a pneumonia from a chronic bronchitis. Comprehensive work-up was pursued. She was given a DuoNeb aerosolized treatment. This was along with Solu-Medrol 125 mg intravenously. EKG was obtained and interpreted by myself which demonstrates normal sinus rhythm at 94 bpm without ectopy or acute ST changes. No STEMI. I reviewed her laboratory work, she has normal white count of 10.3, hemoglobin normal at 13.9, so I do not think that anemia is the cause of her shortness of breath. Platelet count normal at 176. Review of her BMP shows chloride elevated at 111 but a normal sodium of 145 with a potassium of 3.8. Glucose appropriately elevated at 112 with an anion gap normal at 6. BNP is also normal at 21.5. Chest x-ray interpreted by myself shows no evidence of an acute process, no pneumonia or pneumothorax. I reviewed the radiology report which confirms my independent interpretation. At this point in time, after repeat examination, although she feels the same, I feel that she can be discharged safely home. Given that she has had a cough for 4 weeks I will put her on a Z-Iain for atypical pneumonia and for steroid burst for the next 10 days. She was given a prescription for 40 mg of prednisone and told to use her inhaler every 4-6 hours especially over the next 48 hours. She will follow-up with her primary care provider. Smoking cessation was discussed. Return instructions reviewed. Disposition is discharged home in stable condition. Lab Data Attestation: I reviewed the patient's lab results. Labs: Laboratory Results - last 24 hr 11/14/22 11/14/22 11/14/22 15:53 15:53 15:53 WBC 10.3 RBC 4.55 Hgb 13.9 Hct 42.5 MCV 93.4 MCH 30.5 MCHC 32.7 RDW Std Deviation 44.9 H RDW Coeff of Vinicio 13.1 Plt Count 176 MPV 11.6 Immature Gran % (Auto) 0.300 Neut % (Auto) 64.7 Lymph % (Auto) 25.3 Granite % (Auto) 7.2 Eos % (Auto) 2.1 Baso % (Auto) 0.4 Absolute Neuts (auto) 6.7 Absolute Lymphs (auto) 2.61 Nucleated RBC % 0 Sodium 145 Potassium 3.8 Chloride 111 H Carbon Dioxide 28.0 Anion Gap 6 BUN 15 Creatinine 0.66 Estim Creat Clear Calc 89.25 Est GFR (MDRD) Af Amer 117 Est GFR (MDRD) Non-Af 97 BUN/Creatinine Ratio 22.6 H Glucose 112 H Calcium 8.6 B-Natriuretic Peptide 21.5 Radiography Diagnostic Testing: Clinical Impression(s) from Imaging Studies Chest X-Ray 11/14/22 16:05 IMPRESSION: No radiographic evidence of acute cardiopulmonary disease. Electronically Signed: Donato Buckley MD at 16:22 EDT Reading Location ID and State: [facility] / [place] , Service support , Discharge Plan Triage Chief Complaint: Shortness of Breath ED Provider: Luis Miguel Pan Dx/Rx/DC Orders Clinical Impression: COPD exacerbation, Cough, Shortness of breath, Smoker Instructions: ED COPD Flare, ED Dyspnea Prescriptions: New prednisone 20 mg tablet 40 mg PO DAILY Qty: 20 0RF azithromycin 250 mg tablet See Rx Instructions .ROUTE .COMPLEX Qty: 6 0RF Rx Instructions: For 250 mg dose pack: take 500 mg today (day 1), then 250 mg for 4 days (days 2-5) No Action pantoprazole 40 mg tablet,delayed release (DR/EC) 40 mg PO DAILY amlodipine 5 mg tablet 5 mg PO DAILY Qty: 90 3RF aspirin 81 mg capsule 81 mg PO DAILY Qty: 90 3RF atorvastatin 10 mg tablet 10 mg PO QHS Qty: 90 3RF levothyroxine 150 mcg tablet 150 mcg PO DAILY Qty: 90 3RF Primary Care Provider: Zuly Cantor Referrals: Zuly Cantor MD [Primary Care Provider] - 3-5 Days if not improving Activity Restrictions/Additional Instructions: Stop smoking. Take medication as directed. Use your albuterol inhaler 2 puffs every 4-6 hours as needed for shortness of breath. Disposition Disposition: Home, Self Care What to do if you have Problems For any increased pain, shortness of breath, bleeding, nausea or vomiting, chestpain, or any unexpected problems, contact your Primary Care Provider. Call [facility] ([phone]) or report to the closest Emergency Room. Call 911 if necessary. 11/14/22 1705 <Electronically signed by Luis Miguel Pan MD> Cosigner Signature (if applicable): CC: Dr. Zuly Cantor MD ~ Signed [facility] Work Phone: [phone] Hospital Discharge instructions Additional Instructions Stop smoking. Take medication as directed. Use your albuterol inhaler 2 puffs every 4-6 hours as needed for shortness of breath.[facility] Work Phone: Evaluation + Plan note No data available for this section [facility] Evaluation noteNo assessment information available [facility] Work Phone: Evaluation note* Diagnosis COPD with exacerbation (HCC)- Primary Obstructive chronic bronchitis with exacerbation [facility] Diagnosis Red eye- Primary Redness or discharge of eye documented in this encounter [facility] Discharge instructions No data available for this section [facility] Progress note No data available for this section [facility] Reason for referral (narrative)No reason for referral information availableWJ.W. [facility] Work Phone: Chief Complaint and Reason for Visit Chief Complaint NICOTINE DEPENDENCE NICOTINE DEPENDENCE general illness Chief Complaint SOB Chief Complaint SCREENING Chief Complaint Admit Date sob January 26, 2025 9:58a m Family History No Family History Records Found Relationship Condition Age at Onset Recorded Date/T cornelius grandmother Malignant neoplasm of colon Unknown grandfather Kidney disorder Unknown Cardiac disease Unknown sister Malignant neoplasm of lung Unknown Seizure Unknown mother Malignant neoplasm Unknown Diabetes mellitus Unknown daughter Hypertension Unknown Disorder of thyroid Unknown Relationship Condition Age at Onset Recorded Date/T cornelius grandfather Kidney disorder Unknown Cardiac disease Unknown Malignant neoplasm of colon Unknown sister Malignant neoplasm of lung Unknown Seizure Unknown mother Malignant neoplasm Unknown Diabetes mellitus Unknown daughter Hypertension Unknown Disorder of thyroid Unknown Advance Directives No Advanced Directives Records Found Advance Directive Response Recorded Date/ Time Advance Directives No February 16 3:46pm Living Will No November 12, 2021 4:01am Power of Welt Pocket Machine Operator No November 12 4:01am Advance Directive Response Recorded Date/ Time Advance Directives No February 16 3:46pm Living Will No November 14, 2022 3:30pm Power of [employer] Pocket Machine Operator No November 14 3:30pm Advance Directive Response Recorded Date/ Time Advance Directives No February 16 2:46pm Living Will No November 14, 2022 2:30pm Power of [employer] Pocket Machine Operator No November 14 2:30pm Advance Directive Response Recorded Date/ Time Do you have a Healthcare Power of Welt Pocket Machine Operator? No January 26, 2025 11:09am Advance Directives No February 16 3:46pm Summary Purpose Additional Source Comments Goals (unrecognized section and content) Goals may be documented in a n alternate sectionGoals may be documented in an alternate sectionGoals may be documented in an alternate sectionGoals may be documented in an alternate sectionGoals may be documented in an alternate section No data available for this section No data available for this sectionGoals may be documented in an alternate section Care Teams (unrecognized sec tion and content) Team Status: Active Member Role Status Dates Dr. Hu Ricardo MD Family Provider Active Dr. Zuly Cantor MD Primary Care Provider Active Team Status: Inactive Member Role Status Dates Dr. Zuly Cantor MD Primary Care Provider Active Luis Miguel Pan MD Emergency Provider Active Team Status: Active Member Role Status Dates Dr. Hu Ricardo MD Family Provider Active Dr. Hu Ricardo MD Primary Care Provider Active Team Status: Inactive Member Role Status Dates Dr. Hu Ricardo MD Primary Care Provider, Attending Provider Active Team Status: Inactive Member Role Status Dates Dr. Hu Ricardo MD Primary Care Provi shaka, Attending Provider, Referring Provider Active [employer]one Cleaner Relationship Specialty Start Date End Date Hu Ricardo MD [address] [facility] [address] [place] [address] PCP - General Family Medicine 09/22/21 [employer]one Cleaner Relationship Specialty Start Date End Date Hu Ricardo MD [address] [facility] [address] [place] [address] PCP - General Family Medicine 09/22/21 Team Status: Active Member Role Status Dates Dr. Hu Ricardo MD Primary Care Provider Active Team Status: Inactive Member Role Status Dates Dr. Hu Ricardo MD Primary Care Provider Active Start: January 26, 2025 End: January 26, 2025 Dr. Carlito Lewis DO Emergency Provider Active Start: January 26, 2025 End: January 26, 2025 Source Comments (unrecognize d section and content) In the event this informatio n is protected by the Federal Confidentiality of Alcohol and Drug Abuse Patient Records regulations: The Federal rules restrict any use of the information to criminally investigate or prosecute any alcohol or drug abuse patient.[facility] the event this information is protected by the Federal Confidentiality of Alcohol and Drug Abuse Patient Records regulations: The Federal rules restrict any use of the information to criminally investigate or prosecute any alcohol or drug abuse patient.[facility] Reason for Visit (unrecogniz ed section and content) Reason Comments Cough Head and chest conge stion, SOB x1 week Reason Comments Eye Problem left eye itching x t his am INFORMATION SOURCE (unrecogn ized section and content) DATE CREATED AUTHOR 09/14/2024 [facility] DATE CREATED AUTHOR AUTHOR'S ORGANIZ ATION 01/08/2025 [facility] DATE CREATED AUTHOR AUTHOR'S ORGANIZ ATION 02/03/2025 [facility] FOR RECORDS PERTAINING TO PATIENTS WHO ARE [...] BE BASED ON THE PRIMARY CLINICAL RECORDS. [facility] [place] [facility]. provides no warranty or guarantee of the accuracy or completeness of information in this document.
[2025-02-11] MEDS: predniSONE 20 MG Tablet 60 MG PO (18:37)
[2025-02-11 18:52] LABS: Absolute Lymphocyte Count 2.22 X10^3/uL (0.83-4.51); Absolute Neutrophil Count 7.5 X10^3/uL (2.0-7.7); Basophil# 0.05 X10^3/uL; Basophil% 0.5 % (0-1); Eosinophil# 0.27 X10^3/uL; Eosinophils% 2.5 % (0-5); Hemoglobin 13.1 g/dL (12.0-15.0); Lymphocyte # 2.22 X10^3/ul (0.83-4.51); Lymphocyte % 20.7 % (19-41); Mean Corp Hgb Conc 33.6 g/dL (32-36); Mean Corpuscular Hgb 31.1 pg (27.0-32.0); Mean Corpuscular Volume 92.6 fL (81-99); Mean Platelet Vol. 11.6 fl (6.2-12.0); Monocyte# 0.65 X10^3/uL; Monocyte% 6.1 % (0-10); NRBC Flagged by Analyzer 0 % (0-5); Neutrophil # 7.51 X10^3/uL (2.7-7.7); Neutrophil % 69.8 % (47-70); Platelet Count 151 K/mm3 (150-450); RBC Distribution Width CV 14.6 % (11.6-14.6); RBC Distribution Width SD 49.1 fl (35.1-43.9); Red Blood Count 4.21 M/mm3 (4.2-5.4); White Blood Count 10.7 K/mm3 (4.4-11.0)
[2025-02-11] MEDS: Albuterol 2.5 MG/3 ML VIAL.NEB. INHALATION ×2 (19:04→20:51)
[2025-02-11 19:11] LABS: Anion Gap 11 (5-15); BUN 9 mg/dL (4-19); BUN/Creat Ratio 16.5 RATIO (10-20); Calcium,Total 8.6 mg/dL (7.6-11.0); Carbon Dioxide 26.6 mmol/L (21.0-32.0); Chloride 104 mmol/L (98-108); Creatinine, Serum 0.56 mg/dL (0.70-1.20); EST Glomerular Filtration Rate 104 (>60); Estimated Creatinine Clearance 131.77 ml/min (50-250); Glucose 75 mg/dL (70-99); Potassium 3.1 mmol/L (3.3-5.1); Sodium Level 142 mmol/L (133-145)
--- NOTE | 2025-02-11 19:28 | RAD_ITS ---
PROCEDURE: CHEST PA AND LATERAL 02/11/2025 REASON FOR EXAM: DYSPNEA TECHNIQUE: CHEST PA AND LATERAL COMPARISON: 01/26/2025 FINDINGS: Cardiomediastinal silhouette is within normal limits. Mild symmetric bibasilar interstitial prominence. No focal consolidation, pleural effusion or sizable pneumothorax. RAD/Chest PA and Lateral IMPRESSION: No focal airspace abnormality. Reading Location: [place]
== END 2025-02-11 21:36 | disposition home or self-care (01) ==
PROVIDERS: Emergency Provider Emergency Medicine; PCP Family Medicine; Visit Provider Emergency Medicine
DX: J44.1 Chronic obstructive pulmonary disease with (acute) exacerbation (principal); I10 Essential (primary) hypertension; E03.9 Hypothyroidism, unspecified; E78.00 Pure hypercholesterolemia, unspecified; F17.200 Nicotine dependence, unspecified, uncomplicated; Z79.890 Hormone replacement therapy; Z79.899 Other long term (current) drug therapy
CPT/HCPCS: 71046; 80048; 85025; 94640; 99285; A4216

== ENCOUNTER 2025-03-02 14:10 | Emergency (ER) | payer OTHER, SELFPAY ==
[2025-03-02 14:10] VITALS: BP 165/91; PULSE 115; RESP 20; TEMP 38.3; O2SAT 99; BMI 36.6
[2025-03-02 15:39] VITALS: O2SAT 97
[2025-03-02] MEDS: Ketorolac 30 MG/ML Syringe IV (16:01)
[2025-03-02] MEDS: Lidocaine 1% (20 ml mdv) 20 ML Vial 5 ML INFILT (16:01)
[2025-03-02] MEDS: 0.9% Normal Saline (1000mL) 1,000 ML 999 ML IV (16:01)
[2025-03-02 16:20] LABS: Hematocrit 40.8 % (37-47); Hemoglobin 13.7 g/dL (12.0-15.0); Immature Granulocytes Count 0.050 X10^3/uL (0.0-0.0); Mean Corp Hgb Conc 33.6 g/dL (32-36); Mean Corpuscular Volume 93.6 fL (81-99); Mean Platelet Vol. 11.2 fl (6.2-12.0); NRBC Flagged by Analyzer 0 % (0-5); Platelet Count 159 K/mm3 (150-450); RBC Distribution Width CV 14.6 % (11.6-14.6); RBC Distribution Width SD 50.1 fl (35.1-43.9); Red Blood Count 4.36 M/mm3 (4.2-5.4); White Blood Count 8.6 K/mm3 (4.4-11.0)
[2025-03-02] MEDS: Vancomycin HCl 1,500 MG in 0.9% Normal Saline (500mL Bag) 500 ML 250 MG IV (16:22)
[2025-03-02 16:27] LABS: Color, Urine Straw (Yellow); Glucose, Dipstick Normal (Normal); Ketone-Dipstick Negative (Negative); Leukocyte Esterase-Dipstick Negative /ul (Negative); Nitrite-Dipstick Negative (Negative); Occult Blood-Urine 250 /ul (Negative); Protein-Dipstick 15 mg/dl (Negative); Specific Gravity, Urine 1.015 (1.002-1.030); Urine Bilirubin Dipstick Negative (Negative)
[2025-03-02 16:38] LABS: Prothrombin Time (Protime)PT. 12.8 SECONDS (11.7-14.9)
[2025-03-02 16:40] LABS: AST(SGOT) 29 U/L (<=31); Alanine Aminotransfer ALT/SGPT 24 U/L (<=34); Albumin, Serum 4.2 g/dL (3.4-4.8); Alkaline Phosphatase 116 U/L (35-104); Anion Gap 13 (5-15); BUN 14 mg/dL (4-19); BUN/Creat Ratio 19.1 RATIO (10-20); Calcium,Total 8.6 mg/dL (7.6-11.0); Carbon Dioxide 23.8 mmol/L (21.0-32.0); Chloride 101 mmol/L (98-108); Estimated Creatinine Clearance 102.87 ml/min (50-250); Globulin 3.1 g/dL (2.2-4.2); Glucose 110 mg/dL (70-99); Partial Thromboplast Time 25.6 Seconds (24.1-36.2); Potassium 3.3 mmol/L (3.3-5.1)
[2025-03-02 17:03] LABS: Red Blood Cells-Urine 5-10 SEEN /hpf (0-5)
[2025-03-02 17:04] LABS: Mucous, Urine 1+ /hpf (<or=2+); Squamous Epithelial Cells - UA 5-10 SEEN /hpf (5-10); Transitional Epithelial - Ur 0-5 SEEN /hpf (0-5)
[2025-03-02 17:13] VITALS: BP 135/70; PULSE 108; RESP 16; TEMP 37.3; O2SAT 96
[2025-03-02 18:14] VITALS: BP 111/75; PULSE 100; RESP 20; TEMP 37.2; O2SAT 98
== END 2025-03-02 18:56 | disposition home or self-care (01) ==
PROVIDERS: Emergency Provider Emergency Medicine; PCP Family Medicine; Visit Provider Emergency Medicine
DX: L02.212 Cutaneous abscess of back [any part, except buttock and flank] (principal); J44.9 Chronic obstructive pulmonary disease, unspecified; L03.312 Cellulitis of back [any part except buttock and flank]; I10 Essential (primary) hypertension; E03.9 Hypothyroidism, unspecified; M41.9 Scoliosis, unspecified; E78.00 Pure hypercholesterolemia, unspecified; F17.200 Nicotine dependence, unspecified, uncomplicated; Z79.82 Long term (current) use of aspirin; Z79.890 Hormone replacement therapy; Z79.899 Other long term (current) drug therapy
CPT/HCPCS: 10060; 71045; 80053; 81001; 83605; 85025; 85610; 85730; 87040; 87070; 87086; 87088; 87149; 87205; 93005; 96365; 96366; 96375; 99283; A4216

== ENCOUNTER 2025-03-03 21:41 | Inpatient (IN) | payer OTHER, SELFPAY ==
[2025-03-03 21:42] VITALS: BP 141/80; PULSE 107; RESP 20; TEMP 37.7; O2SAT 98; BMI 36.6
[2025-03-03] MEDS: 0.9% Normal Saline (500mL Bag) 500 ML 999 ML IV (22:42)
[2025-03-03 22:43] VITALS: O2SAT 98
[2025-03-03 22:43] LABS: Hematocrit 38.3 % (37-47); Hemoglobin 13.0 g/dL (12.0-15.0); Immature Granulocytes Count 0.040 X10^3/uL (0.0-0.0); Mean Corp Hgb Conc 33.9 g/dL (32-36); Mean Corpuscular Volume 91.8 fL (81-99); Mean Platelet Vol. 11.3 fl (6.2-12.0); NRBC Flagged by Analyzer 0 % (0-5); Platelet Count 126 K/mm3 (150-450); RBC Distribution Width CV 14.6 % (11.6-14.6); RBC Distribution Width SD 49.5 fl (35.1-43.9); Red Blood Count 4.17 M/mm3 (4.2-5.4); White Blood Count 7.0 K/mm3 (4.4-11.0)
[2025-03-03 22:51] LABS: Prothrombin Time (Protime)PT. 13.1 SECONDS (11.7-14.9)
[2025-03-03 22:52] LABS: Partial Thromboplast Time 26.5 Seconds (24.1-36.2)
[2025-03-03] MEDS: Vancomycin HCl 1,500 MG in 0.9% Normal Saline (500mL Bag) 500 ML 250 MG IV (23:06)
[2025-03-03 23:07] LABS: AST(SGOT) 61 U/L (<=31); Alanine Aminotransfer ALT/SGPT 51 U/L (<=34); Albumin, Serum 4.1 g/dL (3.4-4.8); Alkaline Phosphatase 103 U/L (35-104); Anion Gap 13 (5-15); BUN 8 mg/dL (4-19); BUN/Creat Ratio 10.8 RATIO (10-20); Calcium,Total 8.0 mg/dL (7.6-11.0); Carbon Dioxide 21.3 mmol/L (21.0-32.0); Chloride 101 mmol/L (98-108); Estimated Creatinine Clearance 100.16 ml/min (50-250); Globulin 3.0 g/dL (2.2-4.2); Glucose 106 mg/dL (70-99); Potassium 3.1 mmol/L (3.3-5.1)
[2025-03-03 23:09] VITALS: BP 147/96; PULSE 96; RESP 20; TEMP 37.1; O2SAT 97
[2025-03-03 23:41] VITALS: BP 147/96; PULSE 89; O2SAT 96
[2025-03-04] VITALS (8 sets, daily range): BP systolic 113–147; BP diastolic 72–96; PULSE 75–89; RESP 16–18; TEMP 36.4–36.7; O2SAT 94–97; BMI 37.0
[2025-03-04] MEDS: Potassium Chloride Oral Tablet 20 MEQ 40 MEQ PO (00:16)
[2025-03-04] MEDS: Potassium Chloride Oral Tablet 20 MEQ 60 MEQ PO (02:20)
[2025-03-04] MEDS: Vancomycin HCl 1,250 MG in 0.9% Normal Saline (250mL Bag) 250 ML 167 MG IV ×2 (06:04→14:56)
[2025-03-04 09:50] LABS: Hematocrit 37.1 % (37-47); Hemoglobin 12.5 g/dL (12.0-15.0); Immature Granulocytes Count 0.010 X10^3/uL (0.0-0.0); Mean Corp Hgb Conc 33.7 g/dL (32-36); Mean Corpuscular Volume 92.8 fL (81-99); Mean Platelet Vol. 10.5 fl (6.2-12.0); NRBC Flagged by Analyzer 0 % (0-5); Platelet Count 114 K/mm3 (150-450); RBC Distribution Width CV 14.8 % (11.6-14.6); RBC Distribution Width SD 50.8 fl (35.1-43.9); Red Blood Count 4.00 M/mm3 (4.2-5.4); White Blood Count 4.2 K/mm3 (4.4-11.0)
[2025-03-04] MEDS: Zinc Sulfate 50 mg zinc (220 mg) ORAL capsule PO (10:42)
[2025-03-04] MEDS: Cholecalciferol (Vit D3) 125 MCG CAPSULE (5,000 UNITS) PO (10:42)
[2025-03-04] MEDS: Lactobacillis Acidophilus 1 CAP PO ×4 (10:42→20:57)
[2025-03-04] MEDS: Clindamycin 300 MG in Dextrose 5%-Water (50mL Bag) 50 ML 150 MG IV ×2 (10:48→18:15)
[2025-03-04 11:01] LABS: Anion Gap 11 (5-15); BUN 6 mg/dL (4-19); BUN/Creat Ratio 11.3 RATIO (10-20); Calcium,Total 7.9 mg/dL (7.6-11.0); Carbon Dioxide 20.0 mmol/L (21.0-32.0); Chloride 109 mmol/L (98-108); Estimated Creatinine Clearance 133.17 ml/min (50-250); Glucose 166 mg/dL (70-99); Magnesium 2.1 mg/dL (1.5-2.2); Potassium 3.9 mmol/L (3.3-5.1)
[2025-03-04 12:28] LABS: Staph aureus DNA By PCR NEGATIVE (Negative)
[2025-03-04] MEDS: Lidocaine 1% (20 ml mdv) 20 ML Vial INFILT (14:40)
[2025-03-04 23:13] LABS: Vancomycin, Trough Level 13.4 ug/mL (5.0-15.0)
[2025-03-04] MEDS: Vancomycin HCl 1,500 MG in 0.9% Normal Saline (500mL Bag) 500 ML 250 MG IV (23:37)
[2025-03-05] MEDS: Clindamycin 300 MG in Dextrose 5%-Water (50mL Bag) 50 ML 150 MG IV (02:34)
[2025-03-05 04:00] VITALS: BP 119/74; PULSE 71; RESP 18; TEMP 36.7; O2SAT 95
[2025-03-05 05:04] LABS: Hematocrit 35.2 % (37-47); Hemoglobin 11.7 g/dL (12.0-15.0); Immature Granulocytes Count 0.030 X10^3/uL (0.0-0.0); Mean Corp Hgb Conc 33.2 g/dL (32-36); Mean Corpuscular Volume 94.1 fL (81-99); Mean Platelet Vol. 12.0 fl (6.2-12.0); NRBC Flagged by Analyzer 0 % (0-5); POSITIVE MORPHOLOGY YES; Platelet Count 119 K/mm3 (150-450); RBC Distribution Width CV 14.9 % (11.6-14.6); RBC Distribution Width SD 52.0 fl (35.1-43.9); Red Blood Count 3.74 M/mm3 (4.2-5.4); White Blood Count 5.9 K/mm3 (4.4-11.0)
[2025-03-05 05:07] LABS: Differential Indicated SCAN CRITERIA MET
[2025-03-05 05:27] LABS: Anisocytosis 1+; Dohle Bodies 1+; Polychromasia 1+
[2025-03-05 06:09] LABS: Anion Gap 9 (5-15); BUN 6 mg/dL (4-19); BUN/Creat Ratio 10.9 RATIO (10-20); Calcium,Total 8.2 mg/dL (7.6-11.0); Carbon Dioxide 22.4 mmol/L (21.0-32.0); Chloride 107 mmol/L (98-108); Estimated Creatinine Clearance 146.22 ml/min (50-250); Glucose 123 mg/dL (70-99); Potassium 3.7 mmol/L (3.3-5.1)
[2025-03-05] MEDS: Vancomycin HCl 1,500 MG in 0.9% Normal Saline (500mL Bag) 500 ML 250 MG IV ×2 (06:25→14:51)
[2025-03-05] MEDS: 0.9% Saline Lock 10 ML Syringe IV ×2 (06:27→14:51)
[2025-03-05 09:01] VITALS: BP 121/71; PULSE 84; RESP 16; TEMP 36.5; O2SAT 94
[2025-03-05] MEDS: Lactobacillis Acidophilus 1 CAP PO ×3 (09:11→16:57)
[2025-03-05] MEDS: Zinc Sulfate 50 mg zinc (220 mg) ORAL capsule PO (09:12)
[2025-03-05] MEDS: Cholecalciferol (Vit D3) 125 MCG CAPSULE (5,000 UNITS) PO (09:12)
[2025-03-05] MEDS: Potassium Phosphate 21 MM in 0.9% Normal Saline (250mL Bag) 250 ML 84 MM IV (09:19)
[2025-03-05 10:13] VITALS: PULSE 89; RESP 18
[2025-03-05 14:38] VITALS: BP 127/86; PULSE 80; RESP 16; TEMP 36.6; O2SAT 98
[2025-03-05 15:10] VITALS: PULSE 83; RESP 18
== END 2025-03-05 17:45 | disposition home or self-care (01) | DRG 603 ==
LOC: ED 22:37 → MS3 03-04 00:54
PROVIDERS: Internal Medicine; Admitting Provider Internal Medicine; Emergency Provider Emergency Medicine; PCP Family Medicine; Visit Provider Family Medicine
DX: L02.212 Cutaneous abscess of back [any part, except buttock and flank] (principal); D69.6 Thrombocytopenia, unspecified; J44.9 Chronic obstructive pulmonary disease, unspecified; I10 Essential (primary) hypertension; E03.9 Hypothyroidism, unspecified; F32.A Depression, unspecified; D64.9 Anemia, unspecified; E66.812 Obesity, class 2; E78.5 Hyperlipidemia, unspecified; M19.90 Unspecified osteoarthritis, unspecified site; M41.9 Scoliosis, unspecified; K21.9 Gastro-esophageal reflux disease without esophagitis; F41.9 Anxiety disorder, unspecified; E87.6 Hypokalemia; L03.312 Cellulitis of back [any part except buttock and flank]; Z68.36 Body mass index [BMI] 36.0-36.9, adult; Z86.0100 Personal history of colon polyps, unspecified; Z79.899 Other long term (current) drug therapy; Z87.891 Personal history of nicotine dependence; Z79.82 Long term (current) use of aspirin; Z90.49 Acquired absence of other specified parts of digestive tract; Z88.0 Allergy status to penicillin; Z88.1 Allergy status to other antibiotic agents
CPT/HCPCS: 36415; 71250; 80048; 80053; 80202; 83605; 83735; 84100; 84439; 84443; 85025; 85610; 85730; 87070; 87075; 87205; 87640; 93005; 94640; 99285; 99406; A4216

== ENCOUNTER 2025-03-16 15:33 | Emergency (ER) | payer OTHER, SELFPAY ==
[2025-03-16 15:33] VITALS: BP 150/78; PULSE 96; RESP 16; TEMP 36.9; O2SAT 98; BMI 34.1
[2025-03-16 15:42] VITALS: BP 146/75; PULSE 93; RESP 20; O2SAT 100
--- NOTE | 2025-03-16 15:46 | ED.VIS.DYS ---
HPI History of Present Illness Chief Complaint: Shortness of Breath Detail of Chief Complaint: Shortness of breath Informant: patient Narrative Narrative: Patient presents with worsening shortness of breath over the last week. Also complains of tightness in her throat and at times feels like she cannot swallow right. She tells me she has history of enlarged thyroid and had an ultrasound years ago of her thyroid. She has history of asthma and COPD and is always chronically short of breath. She denied history of anxiety or panic attacks. She denies recent travel or surgery. She denies chest pain. She has minimal cough. She denies fever. [facility] Medical History Alcohol use Abscessed tooth Post-menopausal Depression Anemia High cholesterol Easy bruising Gastric reflux Smoker Shortness of breath on exertion Hx of colonic polyps Hypertension history excision abdominal wall tumor Blood in stool Acid reflux Laryngeal mass History of abnormal cervical Pap smear History Gallbladder Removal History of benign neoplasm of stomach History of bloody stools Anxiety Hyperthyroidism Scoliosis Asthma Tobacco abuse Hypothyroid COPD (chronic obstructive pulmonary disease) 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 Home Medications ?Medication ?Instructions ?Recorded ?Last Taken ?Type amlodipine 5 mg tablet 5 mg PO DAILY #90 tabs 05/07/22 01/26/25 Rx atorvastatin 10 mg tablet 10 mg PO QHS #90 tabs 05/07/22 01/25/25 Rx albuterol sulfate 90 mcg/actuation 2 puff inhalation Q4H PRN 02/17/24 02/22/24 History aerosol inhaler shortness of breath or wheezing aspirin 81 mg chewable tablet 1 tab PO DAILY 03/03/25 Unknown History levothyroxine 137 mcg tablet 137 mcg PO DAILY 03/04/25 Unknown History lorazepam 1 mg tablet (Ativan) 1 mg PO TID PRN anxiety #10 tabs 03/16/25 Unknown Rx prednisone 20 mg tablet 20 mg PO BID #10 tabs 03/16/25 Unknown Rx Allergy/AdvReac Type Severity Reaction Status Date / Time cephalexin monohydrate (From Allergy Hives Verified 03/16/25 15:33 Keflex) latex Allergy Rash Verified 03/16/25 15:33 Penicillins (PCN) Allergy Hives Verified 03/16/25 15:33 Family History Grandfather Kidney disease Heart disease Colon cancer Sister Lung cancer Seizures Mother Cancer Diabetes Daughter Hypertension Thyroid disorder Surgical History Hx of colonoscopy History of cholecystectomy History of delivery Social History Smoking Status: Former smoker second hand exposure: Yes quit status: not considering quitting alcohol intake: never substance use type: does not use caffeine: Yes what type of physical activity do you participate in: none seatbelt use: always do you feel safe at home: Yes additional social history: Employed Self reliance single ROS ROS ED Review of Systems ROS Unobtainable: other Constitutional Constitutional ED: Reports lethargy; Denies chills, fever(s), sweats or weight loss Eyes Eyes: Denies blurry vision, change in vision or diplopia ENT ENT ED: Denies rhinorrhea or sore throat Cardiovascular Cardiovascular: Denies chest pain, orthopnea or racing heartbeat Respiratory/Chest Respiratory/Chest: Reports cough and dyspnea; Denies dyspnea on exertion, orthopnea or sputum Gastrointestinal Gastrointestinal: Denies abdominal pain, diarrhea, nausea or vomiting Genitourinary Genitourinary ED: Denies dysuria, hematuria or urinary frequency Musculoskeletal Musculoskeletal: Denies arthralgias, back pain, myalgias or neck pain Integumentary Denies abscess, Abrasions or rash Neurologic Neurologic: Denies headache(s) or weakness Psychiatric Psychiatric: Denies anxiety, depression or suicidal thoughts Endocrine Endocrinology: Denies polydipsia, polyphagia or polyuria Hematologic/Lymphatic Hematologic/Lymphatic: Denies easy bleeding, easy bruising or lymphadenopathy Allergic/Immunologic Allergic/Immunologic ED: Denies mouth swelling, tongue swelling or urticaria EXAM Physical Exam Const Vital Signs: 03/16/25 15:33 03/16/25 15:42 03/16/25 15:42 Temperature 98.5 F Temperature Source Oral Pulse Rate 96 93 Respiratory Rate 16 20 H Respiratory Effort Short of Breath Labored Respiratory Depth Shallow Respiratory Pattern Tachypnea Blood Pressure 150/78 H 146/75 H Blood Pressure Mean 102 98 Pulse Ox 98 100 Oxygen Delivery Method Room Air Room Air Room Air 03/16/25 16:00 03/16/25 16:00 03/16/25 16:30 Temperature Temperature Source Pulse Rate 92 95 Respiratory Rate 20 H 18 Respiratory Effort Respiratory Depth Respiratory Pattern Normal Blood Pressure 148/81 H Blood Pressure Mean 103 Pulse Ox 100 99 Oxygen Delivery Method Room Air Room Air 03/16/25 17:00 Temperature Temperature Source Pulse Rate 92 Respiratory Rate 18 Respiratory Effort Respiratory Depth Respiratory Pattern Blood Pressure 139/99 H Blood Pressure Mean 112 Pulse Ox 97 Oxygen Delivery Method Room Air Positive well nourished and well developed General Appearance ED: well developed and NAD HEENT Reports TM's clear and moist mucous membranes normocephalic and atraumatic; Negative for trauma or tenderness Tympanic Membrane ED: Yes TM's clear Eyes PERRL and EOMs intact bilaterally General Eye ED: Negative for pale conjunctiva or scleral icterus Neck no lymphadenopathy, supple and no JVD Neck Narrative: No significant masses noted on exam. There is no stridor on exam. General: Negative for tenderness Chest Wall inspection of chest normal and palpation of chest normal Chest: Negative for tenderness Resp normal respiratory effort and clear to auscultation bilaterally Resp Narrative: Mild faint expiratory wheezes. No accessory muscle use or retractions. No conversational dyspnea. Effort and Inspection: Negative for respiratory distress or pain with movement Auscultation: wheezes; Negative for rhonchi or diminished lung sounds Cardio regular rate, regular rhythm, S1 normal heart sound, S2 normal heart sound and no murmurs Peripheral Pulses: pulses 2+ throughout GI normal to inspection, nondistended, normoactive bowel sounds, soft to palpation, non-tender, non-distended and no masses Back/Spine no CVA tenderness and no thoracic nor lumbar tenderness Extremity normal to inspection General Extremety ED: Negative for edema General Extremity: Negative for edema Neuro oriented x3, CN's II-XII intact bilaterally, no sensory deficits noted and gait normal Sensorium / Orientation: awake, alert, oriented to person, oriented to place and oriented to time Motor Exam: strength 5/5 throughout and strength abnormal Psych mental status grossly normal Skin no rashes or lesions noted and no wounds MDM MDM MDM Narrative Medical decision making narrative: Patient presented with shortness of breath and a tightness in her throat. She she has history of an enlarged thyroid. Clinically she looks well. She has history of COPD as well. IV line established. She was given a DuoNeb aerosol. CBC with differential white, 12.1 with hemoglobin 12.7 and platelet count of 236. Chemistries unremarkable. She did have a slightly depressed potassium at 3.1 for which I did order 40 mEq of potassium chloride p.o. Troponin is less than 6. TSH was 2.42. EKG obtained arrival showed a sinus rhythm with rate of 89 bpm with no acute ST segment changes. CT scan of the neck with IV contrast was essentially normal. At this point she will be discharged home with a prescription for prednisone and Ativan. Suspect possibility of anxiety and globus hystericus. She does have some faint wheezing and may have a component of COPD exacerbation. Advised to follow-up with primary care physician within next 3 to 5 days. Vies to return if increasing shortness of breath or condition should worsen anyway. Lab Data Attestation: I reviewed the patient's lab results. Labs: Laboratory Results - last 24 hr 03/16/25 16:00 WBC 12.1 H RBC 4.00 L Hgb 12.7 Hct 37.3 MCV 93.3 MCH 31.8 MCHC 34.0 RDW Std Deviation 49.8 H RDW Coeff of Vinicio 14.6 Plt Count 236 MPV 10.4 Immature Gran % (Auto) 0.700 Neut % (Auto) 62.8 Lymph % (Auto) 28.3 [place] % (Auto) 6.5 Eos % (Auto) 1.2 Baso % (Auto) 0.5 Absolute Neuts (auto) 7.6 Absolute Lymphs (auto) 3.43 Nucleated RBC % 0 Sodium 142 Potassium 3.1 L Chloride 106 Carbon Dioxide 23.7 Anion Gap 12 BUN 10 Creatinine 0.51 L Estim Creat Clear Calc 139.92 Est GFR (MDRD) Non-Af 106 BUN/Creatinine Ratio 19.4 Glucose 114 H Calcium 8.8 Troponin T High Sens < 6 TSH 2.420 Radiography Diagnostic Testing: Clinical Impression(s) from Imaging Studies Soft Tissue Neck CT 03/16/25 16:18 IMPRESSION: No acute abnormality. Reading [facility] Chest X-Ray 03/16/25 16:30 IMPRESSION: Mild cardiomegaly with vascular congestion. No airspace consolidation or sizable pleural effusion. Reading Location: [id number] 1 view chest x-ray obtained interpreted by myself as no evidence of infiltrate or pneumothorax or acute disease process. Radiology in agreement. EKG Initial EKG: Attestation: I personally reviewed and interpreted this EKG as follows: Comments: Sinus rhythm with ventricular rate of 89 bpm with no acute ST segment changes Discharge Plan Triage Chief Complaint: Shortness of Breath ED Provider: Prashanth Castanon Dx/Rx/DC Orders Clinical Impression: Dyspnea, COPD exacerbation, Anxiety Instructions: ED Anxiety Reaction, ED COPD Flare, ED Dyspnea Prescriptions: New prednisone 20 mg tablet 20 mg PO BID Qty: 10 0RF lorazepam [Ativan] 1 mg tablet 1 mg PO TID PRN (Reason: anxiety) Qty: 10 0RF No Action amlodipine 5 mg tablet 5 mg PO DAILY Qty: 90 3RF atorvastatin 10 mg tablet 10 mg PO QHS Qty: 90 3RF albuterol sulfate 90 mcg/actuation HFA aerosol inhaler 2 puff inhalation Q4H PRN (Reason: shortness of breath or wheezing) aspirin 81 mg tablet,chewable 1 tab PO DAILY levothyroxine 137 mcg tablet 137 mcg PO DAILY Primary Care Provider: Hu Hairston Referrals: Hu Hairston MD [Primary Care Provider] - 3-5 Days Print Language: Citizen Of [place] Disposition Disposition: Home, Self Care
[2025-03-16 16:00] VITALS: PULSE 92; RESP 20; O2SAT 100
[2025-03-16 16:15] LABS: Hematocrit 37.3 % (37-47); Hemoglobin 12.7 g/dL (12.0-15.0); Immature Granulocytes Count 0.080 X10^3/uL (0.0-0.0); Mean Corp Hgb Conc 34.0 g/dL (32-36); Mean Corpuscular Volume 93.3 fL (81-99); Mean Platelet Vol. 10.4 fl (6.2-12.0); NRBC Flagged by Analyzer 0 % (0-5); Platelet Count 236 K/mm3 (150-450); RBC Distribution Width CV 14.6 % (11.6-14.6); RBC Distribution Width SD 49.8 fl (35.1-43.9); Red Blood Count 4.00 M/mm3 (4.2-5.4); White Blood Count 12.1 K/mm3 (4.4-11.0)
--- NOTE | 2025-03-16 16:18 | CT_ITS ---
PROCEDURE: SOFT TISSUE NECK WITH CONTRAST 03/16/2025 REASON FOR EXAM: THROAT TIGHTNESS, DYSPNEA TECHNIQUE: SOFT TISSUE NECK WITH CONTRAST CONTRAST: Isovue 370 VOLUME: 97 mL One or more dose reduction techniques were used (e.g., Automated exposure control, adjustment of the mA and/or kV according to patient size, use of iterative reconstruction technique). RADIATION DOSE SUMMARY: CTDlvol: 16.35 mGy DLP: 559.59 mGycm COMPARISON: 11/12/2021 FINDINGS: Symmetric orbits. Normal nasopharynx. Normal parotid glands. Normal submandibular glands. Normal epiglottis and vocal folds. No subglottic narrowing. Intact thoracic inlet. No enlarged cervical lymph nodes. Normal jugular vein and carotid artery. CT/Soft Tissue Neck WITH Contrast IMPRESSION: No acute abnormality. Reading [facility]
[2025-03-16 16:30] VITALS: BP 148/81; PULSE 95; RESP 18; O2SAT 99
--- NOTE | 2025-03-16 16:30 | RAD_ITS ---
PROCEDURE: CHEST 1 VIEW (PORTABLE) 03/16/2025 REASON FOR EXAM: DYSPNEA TECHNIQUE: Frontal view of the chest. COMPARISON: 03/02/2025 FINDINGS: Lungs/Pleura: No focal consolidation, pneumothorax or sizable pleural effusion. Heart/Mediastinum: Mild cardiomegaly, with central vascular congestion. Bones/Soft tissues: No significant abnormality. RAD/Chest 1 View (Portable) IMPRESSION: Mild cardiomegaly with vascular congestion. No airspace consolidation or sizable pleural effusion. Reading Location: [id number]
[2025-03-16 17:00] VITALS: BP 139/99; PULSE 92; RESP 18; O2SAT 97
[2025-03-16 17:22] LABS: Anion Gap 12 (5-15); BUN 10 mg/dL (4-19); BUN/Creat Ratio 19.4 RATIO (10-20); Calcium,Total 8.8 mg/dL (7.6-11.0); Carbon Dioxide 23.7 mmol/L (21.0-32.0); Chloride 106 mmol/L (98-108); Estimated Creatinine Clearance 139.92 ml/min (50-250); Glucose 114 mg/dL (70-99); Potassium 3.1 mmol/L (3.3-5.1); Troponin T High Sensitivity < 6 ng/L (<=14)
[2025-03-16] MEDS: Potassium Chloride Oral Tablet 20 MEQ 40 MEQ PO (18:01)
[2025-03-16 18:09] VITALS: BP 154/87; PULSE 84; RESP 16; TEMP 36.6; O2SAT 100
== END 2025-03-16 18:25 | disposition home or self-care (01) ==
PROVIDERS: Emergency Provider Emergency Medicine; PCP Family Medicine; Visit Provider Emergency Medicine
DX: J44.1 Chronic obstructive pulmonary disease with (acute) exacerbation (principal); E78.00 Pure hypercholesterolemia, unspecified; F41.9 Anxiety disorder, unspecified; Z87.891 Personal history of nicotine dependence; I10 Essential (primary) hypertension; R06.00 Dyspnea, unspecified; K21.9 Gastro-esophageal reflux disease without esophagitis
CPT/HCPCS: 70491; 71045; 80048; 84443; 84484; 85025; 93005; 94640; 99283; Q9967; A4216

== ENCOUNTER 2025-07-15 06:29 | Emergency (ER) | payer OTHER, SELFPAY ==
[2025-07-15 06:31] VITALS: BP 151/72; PULSE 93; RESP 24; TEMP 36.8; O2SAT 97; BMI 36.1
--- NOTE | 2025-07-15 07:03 | EDS_ITS ---
HPI History of Present Illness Chief Complaint: Shortness of Breath Narrative Narrative: 59-year-old female past medical history of asthma and COPD presents to the emergency department with a few days of increasing dyspnea. She states she has had difficulty breathing, basically all of her life. Her symptoms have been worse over the last few days. She denies any fevers or chills but has had a cough productive of sputum. She has mild nasal congestion but denies rhinorrhea, has been using her albuterol inhaler at home without relief. She states her last steroid burst was a month ago. She sees a performance test architect, Dr. Henderson. Denies any exacerbating or alleviating factors. [facility] Medical History Obesity (BMI 30-39.9) Thrombocytopenia Alcohol use Abscessed tooth Post-menopausal Depression Anemia High cholesterol Easy bruising Gastric reflux Smoker Shortness of breath on exertion Hx of colonic polyps Hypertension history excision abdominal wall tumor Blood in stool Acid reflux Laryngeal mass History of abnormal cervical Pap smear History Gallbladder Removal History of benign neoplasm of stomach History of bloody stools Anxiety Hyperthyroidism Scoliosis Asthma Tobacco abuse Hypothyroid COPD (chronic obstructive pulmonary disease) 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 Home Medications Medication Instructions Recorded Last Taken Type amlodipine 5 mg tablet 5 mg PO DAILY #90 tabs 05/0707/15/25 Rx atorvastatin 10 mg tablet 10 mg PO QHS #90 tabs 07/14/25 Rx albuterol sulfate 90 mcg/actuation 2 puff inhalation Q 4H PRN 02/17/24 07/15/25 History aerosol inhaler shortness of breath or wheez ing aspirin 81 mg chewable tablet 1 tab PO DAILY 03/03/25 07/15/25 History levothyroxine 137 mcg tablet 137 mcg PO DAILY 03/04/25 07/14/25 History albuterol sulfate 2.5 mg/3 mL 2.5 mg (3 mL) inhalation Q4H PRN 07/15/25 Unknown Rx (0.083 %) solution for nebulization #25 vials fluticasone fur. 200 mcg-umeclid 1 ea inhalation DAILY 07/15/25 07/15/25 History 62.5 mcg-vilant 25 mcg inhalat.powder (Trelegy Ellipta) prednisone 20 mg tablet 40 mg (2 x 20 mg) PO DAILY 7 days 07/15/25 Unknown Rx #14 tabs Allergy/AdvReac Type Severity Reaction Status Date / Time cephalexin monohydrate (From Allergy Hives Verified 03/16/25 15:33 Keflex) latex Allergy Rash Verified 03/16/25 15:33 Penicillins (PCN) Allergy Hives Verified 03/16/25 15:33 Family History Grandfather Kidney disease Heart disease Colon cancer Sister Lung cancer Seizures Mother Cancer Diabetes Daughter Hypertension Thyroid disorder Surgical History Hx of colonoscopy History of cholecystectomy History of delivery Social History Smoking Status: Current some day smoker tobacco type: cigarettes second hand exposure: Yes quit status: not considering quitting alcohol intake: never substance use type: does not use caffeine: Yes what type of physical activity do you participate in: none seatbelt use: always do you feel safe at home: Yes additional social history: Employed Self reliance single ROS ROS ED ROS Narrative Review of systems positive for increasing dyspnea, occasional productive cough. No chest pain, no fevers or chills, no nausea or vomiting. Mild nasal congestion. No leg swelling. No history of CHF. EXAM Physical Exam Narrative Exam Narrative: Afebrile. Vital signs noted. Nontoxic-appearing. Cardiovascular examination reveals a regular rate and rhythm. Respiratory examination reveals mild tachypnea. Diffuse wheezing bilateral lung santana. Moving a fair amount of air. Mild nasal congestion. Airway patent. Abdomen soft and nontender. No appreciable pedal edema. Neurological examination nonfocal, nonlateralizing. Const Vital Signs: 07/15/25 06:31 07/15/25 06:33 07/15/25 07:25 Temperature 98.2 F Temperature Source Oral Pulse Rate 93 91 Respiratory Rate 24 H 16 Respiratory Effort Normal Non-Labored Respiratory Depth Normal Respiratory Pattern Tachypnea Normal Blood Pressure 151/72 H Blood Pressure Mean 98 Pulse Ox 97 Oxygen Delivery Method Room Air Room Air 07/15/25 08:14 07/15/25 08:30 Temperature Temperature Source Pulse Rate 90 86 Respiratory Rate 16 18 Respiratory Effort Respiratory Depth Respiratory Pattern Normal Blood Pressure 127/71 H Blood Pressure Mean 89 Pulse Ox 97 Oxygen Delivery Method Room Air MDM MDM MDM Narrative Medical decision making narrative: Differential diagnosis includes but not limited to asthma/COPD exacerbation versus pneumonia versus pneumothorax versus bronchitis, chronic. Patient's pulse ox is 97% on room air. She will be given a DuoNeb aerosolized treatment. She was also given a loading dose of prednisone 60 mg orally. Chest x-ray and 2 views will be obtained. I do not feel she requires a respiratory swab. She will be symptomatic with a steroid burst and continue use of her inhaler. I reviewed her prior records. She was last seen in February for dyspnea. I do feel laboratory work would be beneficial as treatment will be symptomatic. EKG was obtained and interpreted by myself independently as normal sinus rhythm at 86 bpm without ectopy or acute ST changes. No STEMI. No significant change from EKG obtained March 16, 2025 in comparison. Chest x-ray and 2 views interpreted by myself independently as well shows no evidence of a pneumonia or pneumothorax. No significant change from previous as well. I reviewed the radiology report which confirms my independent interpretation. As there is no infiltrate, I do not feel that antibiotics are indicated. Upon repeat examination approximately 8:05 AM, patient is less tachypneic but still feels tight. She has occasional wheezing. I do feel she would benefit from another DuoNeb aerosolized treatment and reassessment. On repeat examination, she is resting comfortably on the cot. Ambulatory pulse ox will be obtained. She states she feels mildly improved. I will write her for prednisone burst for the next 7 days. Additionally, she states she has a nebulizer at home, but needs the medication. I wrote her prescription for albuterol to use every 4 hours as needed through her nebulizer machine. Walking pulse ox is 95 to 96% on room air. I do not feel she requires observation or admission as she is not hypoxic. I feel she can be discharged safely home with follow-up to her performance test architect. Return instructions to the emergency department reviewed. Disposition is discharged home in stable condition. History & Record Review Discussion w/independent historian: Patient Additional record(s) reviewed:: Prior ED visit Radiography Diagnostic Testing: Clinical Impression(s) from Imaging Studies Chest X-Ray 07/15/25 07:10 IMPRESSION: No acute pulmonary process, no interval change Reading Location: [facility] Discharge Plan Triage Chief Complaint: Shortness of Breath ED Provider: Luis Miguel Pan Dx/Rx/DC Orders Clinical Impression: COPD exacerbation, Shortness of breath Instructions: Asthma and COPD, ED COPD Flare Prescriptions: New albuterol sulfate 2.5 mg /3 mL (0.083 %) solution for nebulization 2.5 mg inhalation Q4H PRN Qty: 25 0RF Rx Instructions: Use q4 hours and PRN for wheezing prednisone 20 mg tablet 40 mg PO DAILY 7 Days Qty: 14 0RF No Action amlodipine 5 mg tablet 5 mg PO DAILY Qty: 90 3RF atorvastatin 10 mg tablet 10 mg PO QHS Qty: 90 3RF albuterol sulfate 90 mcg/actuation HFA aerosol inhaler 2 puff inhalation Q4H PRN (Reason: shortness of breath or wheezing) aspirin 81 mg tablet,chewable 1 tab PO DAILY levothyroxine 137 mcg tablet 137 mcg PO DAILY Trelegy Ellipta 200-62.5-25 mcg blister with device 1 ea INHALATION DAILY Stand Alone Forms: ED Work / School Excuse Primary Care Provider: Hu Hairston Referrals: Hu Hairston MD [Primary Care Provider, Family Practice] Lennox Henderson MD [Med Staff - Active Staff, Pulmonary Medicine] - 3-5 Days if not improving Activity Restrictions/Additional Instructions: Prednisone burst as directed. Continue use of your inhaler as previously directed. Return to the emergency department with increased difficulty breathing, new or worsening symptoms. Follow-up with your performance test architect. Print Language: Yoruba Disposition Disposition: Home, Self Care
--- OUTSIDE RECORDS SUMMARY | 2025-07-15 07:06 | XMS RPT_ITS | CCD ---
Author Organization [facility] Care Team Providers Care Air Conditioning Unit Assembler Name Role Phone Reymundo, TECHNICAL SUPPORT ASSOCIATE-C Romi Referring Provider [phone] [place] Dwyer-C Romi Other Provider [phone] [place] [address], [facility] Primary Care Pro vider [facility], [facility] Other Provider Dr. Moises Ruiz Attending Provider Marika GIBSON, Hu De Luna Primary Care Provider EVELYN GIBSON, DR ESTEVEZ Primary Care Physician Mckenna RIVAS MD, DR ESTEVEZ Primary Care Unavailable CINDI GIBSON, EWELINA Molina Attending Unavailable RADHA GIBSON, CLARA Attending Unavailable EVELYN GIBSON, DR ESTEVEZ Primary Care Unavailable Marika GIBSON, Dr. Lui Primary Care Provider Dr. Carlito Lewis DO Emergency Provider [phone] Carlito Lewis DO Attending Provider Dr. Esa Thacker DO Emergency Provider Dr. Esa Thacker DO Attending Provider Dr. Emiliano Cisse DO Emergency Provider Perez DO, Dr. Jennings Admit Provider Unavail able de Cristobal DWYER, Dr. Jennings Attending Provider Unav ailable de Cristobal DWYER, Dr. Jennings Other Provider Unavail able Dr. Surendra De Luna MD Other Provider Silvia GIBSON, Dr. High Other Provider [phone] Chantal GIBSON, Dr. Patti Colon Attending Provider Roberto GIBSON, Dr. Zapata Other Provider [phone] [place] GIBSON, Dr. Agosto Attending Provider Chantal GIBSON, Dr. Patti Colon Other Provider Dr. Emiliano Cisse DO Attending Provider [phone] Lg DWYER, Dr. Alford Emergency Provider [phone] Hairston, Hu Primary Care Unavailable Sibilia, Clara V Attending Unavailable Sibilia, Clara V Referring Unavailable Hairston, Hu Primary Care Unavailable Luther Williamson Attending Unavailable Hairston, Hu Primary Care Unavailable Esa Thacker Attending Unavailable Hairston, Hu Primary Care Unavailable Carlito Lewis Attending Unavailable Hairston, Hu Primary Care Unavailable Hairston, Hu Referring Unavailable Surendra De Luna Attending Unavailable Hairston, Hu Primary Care Unavailable Dick Perez Consulting Unavailable Perez, Dick Attending Unavailable Dick Perez Admitting Unavailable Surendra De Luna Attending Unavailable Patti Cornejo Referring Unavailable Surendra De Luna Consulting Unavailable Roberto, Benny Consulting Unavailable Clara Vega Consulting Unavailable Patti Cornejo Consulting Unavailable Patti Cornejo Attending Unavailable Lg, Prashanth Attending Unavailable Hairston, Hu Primary Care Unavailable Hairston, Hu Primary Care Unavailable Emiliano Cisse Attending Unavailable Hairston, Hu Primary Care Unavailable Jamal Thompson Attending Unavailable Hairston, Hu Primary Care Unavailable Emiliano Cisse Attending Unavailable Dick Perez Consulting Unavailable Dick Perez Admitting Unavailable Hairston, Hu Primary Care Unavailable Patti Cornejo Attending Unavailable Surendra De Luna Consulting Unavailable Clara Vega Consulting Unavailable Benny Mejia Consulting Unavailable HAIRSTON, HU R Primary Care Unavailable HAIRSTON, HU R Primary Care Unavailable HAIRSTON, HU R Primary Care Unavailable HAIRSTON, HU R Primary Care Unavailable Allergies Allergy Classification Reported Allergen(s) Allergy Type Date of Onset Reaction(s) Facility (13 sources) Cephalexin; Translations: [cephalexin monohydrate] Drug Allergy 05-24-2019 [facility] (17 sources) Latex; Translations: [LATEX] Allergy to substance 01-08-2015 [facility] (16 sources) Penicillins; Translations: [Penicillins] Allergy to substance 04-11-2021 [facility] (5 sources) Cephalexin; Translations: [cephalexin] Drug Allergy 01-10-2014 [facility] (2 sources) Penicillin; Translations: [penicillin] Drug Allergy [facility] (1 source) Latex Drug allergy (disorder) 03-16-2025 [facility] Repository Medications Current Medications Medication Drug Class(es) Dates Sig (Normalized) Sig (Original) amLODIPine 5 mg oral tablet (20 sources) Dihydropyridine Calcium Channel Pennie Start: 01-29-2022 End: 05-07-2022 take 1 tablet by mouth once daily Amlodipine 5 mg tablet Active 5 mg PO DAILY 90 May 07, 2022 8:20am aspirin 81 mg chewable tablet (20 sources) Platelet Aggregation Inhibitor, Nonsteroidal Anti-inflammatory Drug Start: 03-03-2025 Aspirin 81 mg tablet,chewable Active 1 {tbl} PO DAILY March 03, 2025 12:00am Start: 01-29-2022 End: 03-04-2025 take 1 capsule by mouth once daily Aspirin 81 mg capsule Discontinued 81 mg PO DAILY 90 3 April 23, 2022 9:53am May 07, 2022 8:20am Start: 03-05-2017 End: 01-29-2022 Aspirin (Adult Low Dose Aspi rin) 81 mg tablet,delayed release (DR/EC) Discontinued 81 mg PO DAILY 0 October 20, 2017 1:00am January 29, 2022 8:28am Start: 09-25-2014 End: 02-17-2015 take 1 tablet by mouth once daily Aspirin 81 MG Tab.Chew Discontinued 81 mg PO DAILY@0800 September 25, 2014 1:00am February 17, 2015 9:46am Budesonide / formoterol (2 sources) Corticosteroid, beta2-Adrenergic Agonist Start: 04-18-2015 take 2 puff(s) by inhalation twice daily budesonide-formoterol (SYMBICORT) 160-4.5 mcg/actuation inhaler Inhale 2 Puffs as instructed twice daily. 1 Inhaler 3 04/18/2015 Active erythromycin 0.005 mg/mg ophthalmic ointment (1 source) Macrolide, Macrolide Antimicrobial Start: 07-22-2024 End: 07-29-2024 erythromycin (ROMYCIN) 5 mg/gram (0.5 %) ophthalmic ointment Use 1 application in the left eye four times daily for 7 days. 3.5 g 07/22/2024 07/29/2024 Active levothyroxine sodium 0.137 mg oral tablet (20 sources) l-Thyroxine Start: 03-04-2025 take 1 tablet by mouth once daily Levothyroxine 137 mcg tablet Active 137 ug PO DAILY March 04, 2025 12:00am Start: 01-29-2022 End: 03-04-2025 take 1 tablet by mouth once daily Levothyroxine 150 mcg tablet Discontinued 150 ug PO DAILY 90 3 April 23, 2022 9:53am May 07, 2022 [...] 25, 2014 12:00am January 11, 2019 1:23pm LORazepam 1 mg oral tablet (1 source) Benzodiazepine Start: 03-16-2025 take 1 tablet by mouth three times daily as needed for anxiety Lorazepam (Ativan) 1 mg tablet Active 1 mg PO THREE TIMES A DAY as needed for anxiety 10 March 16, 2025 12:00am predniSONE 20 mg oral tablet (20 sources) Start: 03-16-2025 take 1 tablet by mouth twice daily Prednisone 20 mg tablet Active 20 mg PO TWICE A DAY 10 March 16, 2025 12:00am Start: 01-26-2025 End: 03-04-2025 take 3 tablets by mouth once daily Prednisone 20 mg tablet Discontinued 60 mg PO DAILY 15 February 11, 2025 12:00am March 04, 2025 12:15am Start: 07-09-2024 End: 01-26-2025 take 4 tablets by mouth once daily Prednisone 10 mg tablet Discontinued 40 mg PO DAILY July 15, 2024 1:00am January 26, 2025 11:57am Start: 11-14-2022 End: 02-17-2024 take 2 tablets by mouth once daily Prednisone 20 mg tablet Discontinued 40 mg PO DAILY 20 November 14, 2022 12:00am February 17, 2024 1:32pm Start: 11-14-2022 take 40 mg by mouth once daily Prednisone Active 40 MG PO DAILY November 13, 2022 11:00pm Start: 09-25-2014 End: 02-17-2015 take 2 tablets by mouth once daily Prednisone 20 MG tablet Discontinued 40 mg PO DAILY@0800 4 0 September 25, 2014 1:00am February 17, 2015 9:46am Start: 09-25-2014 End: 02-17-2015 take 40 mg by mouth once daily Prednisone Discontinued 40 MG PO DAILY@0800 4 September 25, 2014 12:00am February 17, 2015 8:46am Completed/Discontinued Medications Medication Drug Class(es) Dates Sig (Normalized) Sig (Original) acamprosate calcium 333 mg delayed release oral tablet (12 sources) Start: 09-25-2014 End: 10-20-2017 take 2 [...] / HYDROcodone bitartrate 5 mg oral tablet (12 sources) Opioid Agonist Start: 11-12-2021 End: 01-29-2022 Hydrocodone-Acetaminophen 1 TABLET tablet Discontinued 1 {tbl} PO EVERY 4 HOURS NEEDED as needed for Pain 10 2 0 November 12, 2021 January 29, 2022 8:29am Throat pain Pain in throat Start: 11-12-2021 End: 01-29-2022 take 1 tablet by mouth every four hours as needed Hydrocodone-Acetaminophen Discontinued 1 TABLET PO EVERY 4 HOURS NEEDED 10 2 November 12, 2021 January 29, 2022 7:29am [id number] 200 actuat albuterol 0.09 mg/actuat metered dose inhaler (20 sources) beta2-Adrenergic Agonist Start: 02-17-2024 End: 01-26-2025 Albuterol Sulfate (Ventolin Hfa) 90 mcg/actuation HFA aerosol inhaler Discontinued 2 NMA INHALATION EVERY 4 HOURS NEEDED as needed for Wheezing 1 0 July 15, 2024 1:00am January 26, 2025 [...] 25, 2014 12:00am January 29, 2022 7:28am atorvastatin 10 mg oral tablet (20 sources) HMG-CoA Reductase Inhibitor Start: 01-29-2022 End: 05-07-2022 take 1 tablet by mouth at bedtime Atorvastatin 10 mg tablet Discontinued 10 mg PO AT BEDTIME 90 3 April 23, 2022 9:53am May 07, 2022 8:20am azithromycin 250 mg oral tablet (10 sources) Macrolide Antimicrobial Start: 11-14-2022 End: 02-17-2024 Azithromycin 250 mg tablet Discontinued 0 PO .COMPLEX 6 0 November 14, 2022 12:00am February 17, 2024 1:32pm For 250 mg dose pack: take 500 mg today (day 1), then 250 mg for 4 days (days 2-5) Start: 11-14-2022 Azithromycin A ctive 0 PO .COMPLEX 6 November 13, 2022 11:00pm For 250 mg dose pack: take 500 mg today (day 1), then 250 mg for 4 days (days 2-5) cefdinir 300 mg oral capsule (3 sources) Cephalosporin Antibacterial Start: 03-05-2025 End: 03-16-2025 take 1 capsule by mouth twice daily Cefdinir 300 mg capsule Discontinued 300 mg PO TWICE A DAY 14 7 0 March 05, 2025 12:00am March 16, 2025 3:44pm Start: 07-28-2024 End: 08-04-2024 cefdinir 300 mg oral capsule Dose : 300 mg = 1 cap(s), Oral, q12h, X 7 day(s), # 14 cap(s), 0 Refill(s), 08/04/24 10:11:00 AM EST, Preseptal cellulitis of left eye, 86.4 Start Date: 07/28/24 Stop Date: 08/04/24 Status: Ordered ciprofloxacin 3 mg/ml ophthalmic solution (6 sources) Quinolone Antimicrobial Start: 07-25-2024 End: 01-26-2025 Ciprofloxacin Hcl 0.3 % drops Discontinued 2 NMA EACH EYE EVERY 6 HOURS 10 7 0 July 25, 2024 1:00am January 26, 2025 11:57am clindamycin 300 mg oral capsule (20 sources) Lincosamide Antibacterial Start: 11-12-2021 End: 01-29-2022 take 1 capsule by mouth every six hours Clindamycin Hcl (Cleocin Hcl) 300 MG capsule Discontinued 300 mg PO EVERY 6 HOURS 40 0 November 12, 2021 12:00am January 29, 2022 8:28am Start: 02-01-2015 End: 02-17-2015 take 2 capsules by mouth four times daily Clindamycin Hcl 150 MG capsule Discontinued 300 mg PO 4 TIMES DAILY 80 0 February 01, 2015 12:00am February 17, 2015 9:46am Start: 02-01-2015 End: 02-17-2015 take 300 mg by mouth four times daily Clindamycin Hcl Discontinued 300 MG PO 4 TIMES DAILY 80 January 31, 2015 11:00pm February 17, 2015 8:46am doxycycline hyclate 100 mg oral tablet (7 sources) Tetracycline-class Drug Start: 07-09-2024 End: 01-26-2025 take 1 tablet by mouth twice daily Doxycycline Hyclate 100 mg tablet Discontinued 100 mg PO TWICE A DAY July 15, 2024 1:00am January 26, 2025 11:57am Hydrocortisone 2.5 % cream with applicator (6 sources) Start: 01-11-2019 End: 05-24-2019 Hydrocortisone 2.5 % cream with applicator Discontinued 1 % RC DAILY 0 January 11, 2019 12:00am May 24, 2019 10:42am Start: 01-11-2019 End: 05-24-2019 Hydrocortisone 2.5 % cream w ith applicator Discontinued 1 % RC DAILY January [...] 11, 2019 12:00am May 24, 2019 10:42am lisinopril 20 mg oral tablet (12 sources) Angiotensin Converting Enzyme Inhibitor Start: 11-12-2021 End: 01-29-2022 Lisinopril 20 mg tablet Discontinued November 12, 2021 12:00am January 29, 2022 9:18am Start: 11-12-2021 End: 01-29-2022 Lisinopril Discontinued 2021 11:00pm January 29, 2022 8:18am loratadine 10 mg oral tablet (20 sources) Start: 05-24-2019 End: 01-29-2022 take 1 tablet by mouth once daily Loratadine (Claritin) 10 mg tablet Discontinued 10 mg PO DAILY May 24, 2019 12:00am January 29, 2022 8:29am Start: 09-25-2014 End: 01-11-2019 take 1 tablet by mouth once daily Loratadine 10 MG tablet Discontinued 10 mg PO DAILY September 25, 2014 1:00am January 11, 2019 2:20pm methylPREDNISolone 4 mg oral tablet (6 sources) Corticosteroid Start: 07-15-2024 End: 01-26-2025 Methylprednisolone 4 mg tablets,dose pack Discontinued 4 mg PO DIRECTED 1 July 15, 2024 1:00am January 26, 2025 11:57am montelukast 10 mg oral tablet (12 sources) Leukotriene Receptor Antagonist Start: 05-31-2018 End: 01-11-2019 take 1 tablet by mouth once daily Montelukast 10 MG tablet Discontinued 10 mg PO DAILY May 31, 2018 12:00am January 11, 2019 2:20pm Multivitamin 1 EACH tablet (6 sources) Start: 05-31-2018 End: 01-11-2019 Multivitamin 1 EACH [...] 24 hr nicotine 0.583 mg/hr transdermal system (12 sources) Cholinergic Nicotinic Agonist Start: 05-31-2018 End: 01-11-2019 apply 14 mg transdermal route once daily Nicotine 14 MG patch Discontinued 14 mg TRANSDERM. DAILY May 31, 2018 12:00am January 11, 2019 2:21pm oxyCODONE hydrochloride 5 mg oral tablet (2 sources) Opioid Agonist Start: 03-05-2025 End: 03-16-2025 take 1 tablet by mouth every six hours as needed for pain Oxycodone 5 mg Tablet Discontinued 5 mg PO EVERY 6 HOURS NEEDED as needed for Pain Score 6-10 20 5 0 March 05, 2025 March 16, 2025 3:44pm Abscess Cellulitis Cutaneous abscess, unspecified Cellulitis of trunk, unspecified pantoprazole 40 mg delayed release oral tablet (10 sources) Proton Pump Inhibitor Start: 01-29-2022 End: 12-16-2023 take 1 tablet by mouth once daily Pantoprazole 40 mg tablet,delayed release (DR/EC) Discontinued 40 mg PO DAILY January 29, 2022 12:00am December 16, 2023 12:00pm polyethylene glycol 3350 43049 mg powder for oral solution (12 sources) Osmotic Laxative Start: 01-11-2019 End: 05-24-2019 Polyethylene Glycol 3350 (Purelax) 17 gram/dose powder Discontinued 17 g PO DAILY January 11, 2019 12:00am May 24, 2019 10:40am sulfamethoxazole 800 mg / trimethoprim 160 mg oral tablet (20 sources) Dihydrofolate Reductase Inhibitor Antibacterial, Sulfonamide Antimicrobial Start: 03-02-2025 End: 03-04-2025 Sulfamethoxazole -Trimethoprim (Bactrim Ds) 800-160 mg tablet Discontinued 1 {tbl} PO TWICE A DAY 14 7 0 March 02, 2025 12:00am March 04, 2025 12:15am Start: 07-25-2024 End: 01-26-2025 Sulfamethoxazole-Trimethopri m (Bactrim Ds) 800-160 mg tablet Discontinued 1 {tbl} PO TWICE A DAY 14 7 0 July 25, 2024 1:00am January 26, 2025 11:57am Start: 06-22-2015 End: 10-20-2017 Sulfamethoxazole-Trimethopri m 1 TABLET tablet Discontinued 1 {tbl} PO TWICE A DAY 6 0 June 22, 2015 12:00am October 20, 2017 2:34pm Start: 06-22-2015 End: 10-20-2017 take 1 tablet by mouth twice daily Sulfamethoxazole-Trimethoprim Discontinu ed 1 TABLET PO TWICE A DAY 6 June 21, 2015 11:00pm October 20, 2017 1:34pm Problems Active Problems Problem Classification Problem Date Documented Date Episodic/Chronic Acute and chronic tonsillitis (10 sources) Enlarged tonsil; Translations: [Hypertrophy of tonsils] 01-29-2022 Chronic Administrative/socia l admission (20 sources) Patient encounter status; Translations: [Encounter for pre-employment examination] Onset: 10-28-2016 03-06-2019 Episodic Alcohol-related disorders (2 sources) Alcohol intoxication; Translations: [Alcohol abuse with intoxication, unspecified] Onset: 02-23-2014 08-25-2021 Chronic Anxiety disorders (1 source) Anxiety; Translations: [Anxiety disorder, unspecified] 03-16-2025 Chronic Asthma (14 sources) Asthma; Translations: [Unspecified asthma, uncomplicated] Onset: 01-10-2014 06-07-2018 Chronic Chronic obstructive pulmonary disease and bronchiectasis (20 sources) Health management finding; Translations: [Chronic obstructive pulmonary disease, unspecified] Onset: 02-06-2014 01-11-2019 Chronic Chronic obstructive pulmonary disease and bronchiectasis (6 sources) Bronchitis; Translations: [Bronchitis, not specified as acute or chronic] 07-23-2024 Episodic Coagulation and hemorrhagic disorders (7 sources) Thrombocytopenic disorder; Translations: [Thrombocytopenia, unspecified] Onset: 03-29-2025 03-04-2025 Chronic Disorders of lipid metabolism (13 sources) Hyperlipidemia; Translations: [Hyperlipidemia, unspecified] Onset: 06-14-2025 01-29-2022 Chronic Diverticulosis and diverticulitis (2 sources) Diverticular disease; Translations: [Diverticulosis of intestine, part unspecified, without perforation or abscess without bleeding] Onset: 04-30-2014 08-25-2021 Chronic Esophageal disorders (12 sources) Gastroesophageal reflux disease; Translations: [Gastro-esophageal reflux disease without esophagitis] 01-29-2022 Chronic Essential hypertension (20 sources) Elevated blood pressure; Translations: [Essential (primary) hypertension] 04-12-2021 Chronic Comment on above: CONTROLLED WITH MED Fever of unknown origin (1 source) Fever, unspecified; Translations: [Fever, unspecified] Onset: 03-29-2025 Episodic Fluid and electrolyte disorders (6 sources) Hypokalemia; Translations: [Hypokalemia] Onset: 03-29-2025 03-04-2025 Episodic Hypertension with complications and secondary hypertension (1 source) Secondary hypertension, unspecified; Translations: [Secondary hypertension] Onset: 09-11-2024 Chronic Inflammation; infection of eye (except that caused by tuberculosis or sexually transmitteddisease) (12 sources) Unspecified acute conjunctivitis, left eye; Translations: [Acute conjunctivitis of left eye] 08-03-2024 Episodic Menopausal disorders (12 sources) Menopausal syndrome; Translations: [Menopausal and female [...] 01-10-2014 Chronic Other and unspecified benign neoplasm (8 sources) History of polyp of colon; Translations: [Personal history of colonic polyps] Onset: 11-02-2016 11-02-2016 Episodic Other connective tissue disease (1 source) Other specified soft tissue disorders; Translations: [Other specified soft tissue disorders] Onset: 03-09-2025 Episodic Other eye disorders (1 source) Red eye; Translations: [Other specified disorders of eye and adnexa] 07-22-2024 Episodic Other eye disorders (1 source) Other specified disorders of eye and adnexa; Translations: [Other specified disorders of eye and adnexa] Onset: 03-06-2025 Episodic Other lower respiratory disease (20 sources) Dyspnea; Translations: [Shortness of breath] 11-14-2022 Episodic Other lower respiratory disease (10 sources) Cough; Translations: [Cough] 11-14-2022 Episodic Other lower respiratory disease (1 source) Shortness of breath; Translations: [Shortness of breath] Onset: 03-23-2025 Episodic Other nutritional; endocrine; and metabolic disorders (6 sources) Body mass index 30+ - obesity; Translations: [Obesity, unspecified] 03-04-2025 Chronic Other nutritional; endocrine; and metabolic disorders (1 source) Obesity, unspecified; Translations: [Obesity, unspecified] Onset: 03-29-2025 Chronic Other screening for suspected conditions (not mental disorders or infectious disease) (3 sources) Encounter for screening for malignant neoplasm of respiratory organs; Translations: [Encounter for screening for malignant neoplasm of respiratory organs] Onset: 12-22-2024 Episodic Other upper respiratory disease (2 sources) Seasonal allergy; Translations: [Other seasonal allergic rhinitis] Onset: 01-10-2014 12-25-2014 Chronic Other upper respiratory disease (2 sources) Allergic rhinitis; Translations: [Allergic rhinitis, unspecified] Onset: 04-19-2014 12-25-2014 Chronic Other upper respiratory disease (3 sources) Disorder of the larynx; Translations: [Other diseases of larynx] 01-11-2019 Episodic Other upper respiratory disease (12 sources) Pain in throat; Translations: [Pain in throat] 11-12-2021 Episodic Other upper respiratory disease (9 sources) Mass of neck; Translations: [Other diseases of larynx] 01-11-2019 Episodic Other upper respiratory infections (12 sources) Streptococcal sore throat; Translations: [Streptococcal pharyngitis] 11-20-2021 Episodic Residual codes; unclassified (15 sources) Tobacco user; Translations: [Tobacco use] 01-11-2019 Episodic Residual codes; unclassified (6 sources) Periorbital edema of left eye; Translations: [Localized edema] 08-03-2024 Episodic Residual codes; unclassified (1 source) Tobacco use; Translations: [Tobacco use] Onset: 03-29-2025 Episodic Skin and subcutaneous tissue infections (20 sources) Cellulitis of upper limb; Translations: [Cellulitis of right upper limb] Onset: 07-28-2024 02-02-2015 Episodic Spondylosis; intervertebral disc disorders; other back problems (2 sources) Lumbar spondylosis; Translations: [Spondylosis without myelopathy or radiculopathy, lumbar region] Onset: 03-22-2015 10-28-2016 Chronic Substance-related disorders (12 sources) Smoker; Translations: [Nicotine dependence, unspecified, uncomplicated] Onset: 02-06-2014 11-14-2022 Chronic Thyroid disorders (15 sources) Hypothyroidism; Translations: [Hypothyroidism, unspecified] Onset: 06-14-2025 01-11-2019 Chronic Unclassified (2 sources) Please follow-up in 2 weeks per Surgery request. Call office for earlier evaluation in concerns arise. Unclassified (2 sources) Follow-up in 1-2 weeks for re-evaluation. Past or Other Problems Problem Classification Problem Date Documented Da te Episodic/Chronic Diabetes mellitus without complication (2 sources) Hyperglycemia; Translations: [Impaired fasting glucose] Onset: 10-28-2016 10-28-2016 Episodic Genitourinary symptoms and ill-defined conditions (2 sources) Blood in urine; Translations: [Hematuria, unspecified] Onset: 04-18-2014 08-25-2021 Episodic Other diseases of kidney and ureters (2 sources) Cyst of kidney; Translations: [Cyst of kidney, acquired] Onset: 05-17-2014 10-28-2016 Episodic Residual codes; unclassified (2 sources) FH: [...] [Suicidal ideations] Onset: 01-16-2014 08-25-2021 Episodic Unclassified (10 sources) History Gallbladder Removal 03-30-2022 Unclassified (10 sources) history excision abdominal wall tumor 03-30-2022 Results Test Name Value Interpretation Reference Range Facility Comprehensive metabolic 2000 panelon 06-14-2025 Albumin [Mass/Vol] 4.2 g/dL Normal 3.9-4.9 [facility] Comment on above: Order Comment: Speci men Type: BLOOD SPECIMEN Ordering Facility: [facility] Address: [facility] [address], [place] [address] Performed By: #### 2 4331-1, 31081-1, 3024-7, 3051-0 #### [facility] CLIA [id number] [address] [place] [address] [place] ALP [Catalytic activity/Vol] 108 U/L Normal 34-123 [facility] Comment on above: Order Comment: Speci men Type: BLOOD SPECIMEN Ordering Facility: [facility] Address: [facility] Fred[address] DELANEY[address], [place] [address] Performed By: #### 2 4331-1, 03443-1, 3024-7, 3051-0 #### [facility] CLIA [id number] [address] [place] [address] [place] ALT [Catalytic activity/Vol] 16 U/L Normal 7-38 [facility] Comment on above: Order Comment: Speci men Type: BLOOD SPECIMEN Ordering Facility: [facility] Address: [facility] Kathleen DELANEY[address], [place] [address] Performed By: #### 2 4331-1, 27644-9, 302-7, 3051-0 #### [facility] CLIA [id number] [address] [place] [address] [place] Anion gap [Moles/Vol] 11 mmol/L Normal 8-15 [facility] Comment on above: Order Comment: Speci men Type: BLOOD SPECIMEN Ordering Facility: [facility] Address: [facility] Fredrick[address]ANE[address], [place] [address] Performed By: #### 2 4331-1, 74660-1, 302-7, 3051-0 #### [facility] CLIA [id number] [address] [place] [id number] [place] AST [Catalytic activity/Vol] 19 U/L Normal 13-35 [facility] Comment on above: Order Comment: Speci men Type: BLOOD SPECIMEN Ordering Facility: [facility] Address: [facility] [address] [place] [id number] Performed By: #### 2 4331-1, 46275-1, 3024-7, 3051-0 #### [facility] CLIA [id number] [address] [place] [address] [place] Bilirubin [Mass/Vol] 0.2 mg/dL Normal 0.2-1.3 [facility] Comment on above: Order Comment: Speci men Type: BLOOD SPECIMEN [facility] [facility] Address: [facility] Kathleen RHETTBrian LOZOYA, [place] [address] Performed By: #### 2 4331-1, 41088-2, 7, 305-0 #### [facility] CLIA [id number] [address] [place] [address] [place] Calcium [Mass/Vol] 8.8 mg/dL Normal 8.5-10.2 [facility] Comment on above: Order Comment: Speci men Type: BLOOD SPECIMEN Ordering Facility: [facility] Address: [facility] FredrickAllen [place] [address] Performed By: #### 2 4331-1, 99352-5, 7, 305-0 #### [facility] CLIA [id number] [facility] [place] [id number] [place] Chloride [Moles/Vol] 105 mmol/L Normal 98-107 [facility] Comment on above: Order Comment: Speci men Type: BLOOD SPECIMEN Ordering Facility: [facility] Address: [facility] Kathleen RHETTBrian LOZOYA, [place] [address] Performed By: #### 2 4331-1, 33985-0, 7, 305-0 #### [facility] CLIA [id number] [address] [place] [address] [place] CO2 [Moles/Vol] 24 mmol/L Normal 22-30 [facility] Comment on above: Order Comment: Speci men Type: BLOOD SPECIMEN Ordering Facility: [facility] Address: [facility] [place] [address] Performed By: #### 2 4331-1, 27326-8, 3023-7, 3051-0 #### [facility] CLIA [id number] [address] [place] [id number] [place] Creatinine [Mass/Vol] 0.45 mg/dL Low 0.58-0.96 [facility] Comment on above: Order Comment: Andrés marcelo Type: BLOOD SPECIMEN Ordering Facility: [facility] Address: [address], [place] [address] Performed By: #### 2 4331-1, 89447-3, 3023-7, 3050-0 #### [facility] CLIA [id number] [facility] [place] [id number] [place] eGFRcr SerPlBld CKD-EPI 2020 110 mL/min/1.73m??? Normal >=60 [facility] Comment on above: Order Comment: Andrés marcelo Type: BLOOD SPECIMEN Ordering Facility: [facility] Address: [facility] Kathleen DELANEYBrian LOZOYA, [place] [address] Result Comment: Amanda mated Glomerular Filtration Rate [...] accurately reflect actual GFR. Performed By: #### 2 4331-1, 22336-7, 3023-7, 3050-0 #### [facility] CLIA [id number] [address] [place] [address] [place] Glucose [Mass/Vol] 152 mg/dL High 74-99 [facility] Comment on above: Order Comment: Andrés marcelo Type: BLOOD SPECIMEN Ordering Facility: [facility] Address: [address], [place] [address] Result Comment: The [place] Diabetes Association (ADA) provides guidance for cutoff [...] Standards of Medical Care in Diabetes 2016, [place] Diabetes Association. Diabetes Care. 2016.39(Suppl 1). Performed By: #### 2 4331-1, 95478-5, 3024-7, 3051-0 #### [facility] CLIA [id number] [facility] [place] [address] [place] Potassium [Moles/Vol] 3.3 mmol/L Low 3.7-5.1 [facility] Comment on above: Order Comment: Andrés marcelo Type: BLOOD SPECIMEN Ordering Facility: [facility] Address: [address] [place] [address] Performed By: #### 2 4331-1, 01284-0, 3023-7, 305-0 #### [facility] CLIA [id number] [address] [place] [address] [place] Protein [Mass/Vol] 7.1 g/dL Normal 6.3-8.0 [facility] Comment on above: Order Comment: Andrés amrcelo Type: BLOOD SPECIMEN Ordering Facility: [facility] [place] [place] [address] Performed By: #### 2 4331-1, 76864-1, 3023-7, 305-0 #### [facility] CLIA [id number] [address] [place], [place] [id number] [place] Sodium [Moles/Vol] 140 mmol/L Normal 136-144 [facility] Comment on above: Order Comment: Andrés marcelo Type: BLOOD SPECIMEN Ordering Facility: [facility] [place] [id number] Performed By: #### 2 4331-1, 53128-6, 3024-7, 3051-0 #### [facility] CLIA [id number] [address] [place] [address] [place] Urea nitrogen [Mass/Vol] 11 mg/dL Normal 7-21 [facility] Comment on above: Order Comment: Speci men Type: BLOOD SPECIMEN Ordering Facility: [facility] Address: [address] [place] [address], [place] [address] Performed By: #### 2 4331-1, 24212-9, 302-7, 305-0 #### [facility] CLIA [id number] [address] [place] [id number] [place] Lipid 1996 panelon 5 Cholesterol [Mass/Vol] 133 mg/dL Normal <200 [facility] Comment on above: Order Comment: Speci men Type: BLOOD SPECIMEN Ordering Facility: [facility] Address: [address] [place] [address], [place] [address] Result Comment: <200 mg/dL, Desirable 200-239 mg/dL, Borderline high >239 mg/dL, High Performed By: #### 2 4331-1, 79747-8, 302-7, 305-0 #### [facility] CLIA [id number] [address] [place] [address] [place] Cholesterol in HDL [Mass/Vol] 57 mg/dL Normal >39 [facility] Comment on above: Order Comment: Speci men Type: BLOOD SPECIMEN Ordering Facility: [facility] , [place] [address] Result Comment: 40-5 9 mg/dL, Acceptable >59 mg/dL, High: Negative risk factor for coronary heart disease <40 mg/dL, Low: Positive risk factor for coronary heart disease Performed By: #### 2 4331-1, 64574-7, 3024-7, 3051-0 #### [facility] CLIA [id number] [address] [place] [address] [place] Cholesterol in LDL [Mass/Vol] 52 mg/dL Normal <100 [facility] Comment on above: Order Comment: Speci men Type: BLOOD SPECIMEN Ordering Facility: [facility] Address: [address], [place] [address] Result Comment: <100 mg/dL, Optimal 100-129 mg/dL, Near optimal/above optimal 130-159 mg/dL, Borderline high 160-189 mg/dL, High >189 mg/dL, Very high Secondary prevention optimal LDL Cholesterol levels are recommended to be <70 mg/dL LDL cholesterol is calculated using the Muñoz-NIH equation. Performed By: #### 2 4331-1, 58804-4, 3024-7, 3051-0 #### [facility] CLIA [id number] [address] [place] [id number] [place] Cholesterol in LDL/Cholesterol in HDL [Mass ratio] 0.91 {ratio} Normal <2.54 [facility] Comment on above: Order Comment: Andrés marcelo Type: BLOOD SPECIMEN Ordering Facility: [facility] Address: [facility] FredrickAllen DELANEYBrian LOZOYA, [place] [address] Result Comment: Refe rence: 1. National Cholesterol Education Program ATP III Guideline At-A-Glance Quick Desk Reference: National Heart, Lung, and Blood [place]. National Institutes of Health. 2001: NIH Publication No. 01-3305. 2. An International Atherosclerosis Society position paper: global recommendations for the management of dyslipidemia: executive summary, Atherosclerosis. 2014: 232(2):410-413. Performed By: #### 2 4331-1, 84758-9, 3024-7, 3051-0 #### [facility] CLIA [id number] [address] [place] [id number] [place] Cholesterol in VLDL [Mass/Vol] 20 mg/dL Normal <30 [facility] Comment on above: Order Comment: Andrés marcelo Type: BLOOD SPECIMEN Ordering Facility: [facility] Address: [address], [place] [address] Performed By: #### 2 4331-1, 54793-5, 3024-7, 3051-0 #### [facility] CLIA [id number] [address] [place] [address] [place] Cholesterol non HDL [Mass/Vol] 76 mg/dL Normal <130 [facility] Comment on above: Order Comment: Andrés marcelo Type: BLOOD SPECIMEN Ordering Facility: [facility] Address: [address] BANDAJESS[address], [place] [address] Result Comment: <130 mg/dL, Optimal 130-159 mg/dL, Near optimal/above optimal 160-189 mg/dL, Borderline high 190-219 mg/dL, High >219 mg/dL, Very high Secondary prevention optimal non HDL Cholesterol levels are recommended to be <100 mg/dL Performed By: #### 2 4331-1, 78506-0, 3024-7, 3051-0 #### [facility] CLIA [id number] [address] [place] [address] [place] Cholesterol.total/Cholest cristal in HDL [Mass ratio] 2.33 {ratio} Normal <5.[address] [facility] Comment on above: Order Comment: Andrés marcelo Type: BLOOD SPECIMEN Ordering Facility: [facility] Address: [address], [place] [address] Performed By: #### 2 4331-1, 41724-4, 3024-7, 3051-0 #### [facility] CLIA [id number] [address] [place] [address] [place] FASTING TIME 17 hrs Normal [facility] Comment on above: Order Comment: Andrés marcelo Type: BLOOD SPECIMEN Ordering Facility: [facility] Address: [address]EE[address], [place] [address] Performed By: #### 2 4331-1, 44620-9, 3024-7, 3051-0 #### [facility] CLIA [id number] [address] [place] [address] [place] Triglyceride [Mass/Vol] 140 mg/dL Normal <150 [facility] Comment on above: Order Comment: Andrés marcelo Type: BLOOD SPECIMEN Ordering Facility: [facility] Address: [address], [place] [address] Result Comment: <150 mg/dL, Normal 150-199 mg/dL, Borderline high 200-499 mg/dL, High >499 mg/dL, Very high Performed By: #### 2 4331-1, 79561-0, 3024-7, 3051-0 #### [facility] CLIA [id number] [address] [place] [id number] [place] T3Free SerPl-mCncon 20 25 Free T3 [Mass/Vol] 2.8 pg/mL Normal 2.3-4.1 [facility] Comment on above: Order Comment: Speci men Type: BLOOD SPECIMEN Ordering Facility: [facility] Address: [address], [place] [address] Performed By: #### 2 4331-1, 78308-2, 3024-7, 3051-0 #### [facility] CLIA [id number] [address] [place] [address] [place] T4 Free SerPl-mCncon 025 Free T4 [Mass/Vol] 1.2 ng/dL Normal 0.9-1.7 [facility] Comment on above: Order Comment: Speci men Type: BLOOD SPECIMENOrdering Facility: [facility] Address: [address], [place] [address] Performed By: #### 2 4331-1, 31815-4, 3024-7, 3051-0 ####[facility] [id number] [place] [address] [place] TSH SerPl-aCncon 06-14-2025 TSH Qn 5.180 m[IU]/L High 0.270-4.200 [facility] Comment on above: Order Comment: Speci men Type: BLOOD SPECIMEN Ordering Facility: [facility] Address: [address], [place] [address] Performed By: #### 3 016-3 #### [facility] CLIA [id number] [address] [place] [address] [place] Absolute lymphocyte countOrd ered By: Prashanth Castanon on 03-16-2025 Lymphocytes Auto (Unsp spec) [#/Vol] 3.43 10*3/uL 0.83-4.51 [facility] Absolute neutrophil countOrd ered By: Prashanth Castanon on 03-16-2025 Neutrophils (Bld) [#/Vol] 7.6 10*3/uL 2.0-7.7 [facility] Anion gap in Serum or Plasma Ordered By: Prashanth Castanon on 03-16-2025 Anion gap [Moles/Vol] 12 mmol/L 5-15 [facility] Automated blood erythrocyte countOrdered By: Prashanth Castanon on 03-16-2025 RBC (Bld) [#/Vol] 4.00 10*6/uL Low 4.2-5.4 [facility] Comment on above: Performed By: #### L 501.4021, L500.2500, L501.9520, L100.0100 #### [facility] [address] [place], [place], [id number] Automated blood hematocrit ( percentage)Ordered By: Prashanth Castanon on 03-16-2025 Hematocrit (Bld) [Volume fraction] 37.3 % Normal 37-47 [facility] Comment on above: Performed By: #### L 501.4021, L500.2500, L501.9520, L100.0100 #### [facility] [address] [place], [place], [address] Automated lymphocyte count a s percentage of total leukocytesOrdered By: Prashanth Castanon on 03-16-2025 Lymphocytes/100 WBC Auto (Unsp spec) 28.3 % 19-41 [facility] BUN/creatinine ratioOrdered By: Prashanth Castanon on 03-16-2025 Urea nitrogen/Creatinine [Mass ratio] 19.4 mg/mg 10- [facility] Basic Metabolic Profile (BMP )on 03-16-2025 BUN/CRE 19.4 RATIO Normal - [facility] Comment on above: Performed By: #### L 501.4021, L500.2500, L501.9520, L100.0100 #### [facility] [address] [place], [address] ECRCL 139.92 ml/min Normal 50-250 [facility] Comment on above: Performed By: #### L 501.4021, L500.2500, L501.9520, L100.0100 #### [facility] [address] [place], [address] GAP 12 Normal 5-15 [facility] Comment on above: Performed By: #### L 501.4021, L500.2500, L501.9520, L100.0100 #### [facility] [address] [place], [address] Potassium [Moles/Vol] 3.1 mmol/L Low 3.3-5.1 [facility] Comment on above: Performed By: #### L 501.4021, L500.2500, L501.9520, L100.0100 #### [facility] [address] [place], [address] Basophil percentageOrdered B y: Remus Ungur on 03-16-2025 Basophils/100 WBC (Bld) 0.5 % Normal 0-1 [facility] Comment on above: Performed By: #### L 501.4021, L500.2500, L501.9520, L100.0100 #### [facility] [address] [place], [address] CBC W/Diff, Automatedon 02-27 Absolute Lymph 3.43 X10 3/uL Normal 0.83-4.51 [facility] Comment on above: Performed By: #### L 501.4021, L500.2500, L501.9520, L100.0100 #### [facility] [address] [place], [address] Absolute Neut 7.6 X10 3/uL Normal 2.0-7.7 [facility] Comment on above: Performed By: #### L 501.4021, L500.2500, L501.9520, L100.0100 #### [facility] [address] [place], [address] IG% 0.700 Normal 0.0-0.9 [facility] Comment on above: Result Comment: IG% - Immature Granulocytes (promyelocytes, myelocytes and metamyelocytes) > 1% indicates that a LEFT SHIFT is Present. Performed By: #### L 501.4021, L500.2500, L501.9520, L100.0100 #### [facility] [address] [place], [address] Lymphocytes/100 WBC (Bld) 28.3 % Normal 19-41 [facility] Comment on above: Performed By: #### L 501.4021, L500.2500, L501.9520, L100.0100 #### [facility] [address] [place], [address] Nucleated RBC (Bld) [#/Vol] 0 10*3/uL Normal 0-5 [facility] Comment on above: Performed By: #### L 501.4021, L500.2500, L501.9520, L100.0100 #### [facility] [address] [place], [address] RDW SD 49.8 fl High 35.1-43.9 [facility] Comment on above: Performed By: #### L 501.4021, L500.2500, L501.9520, L100.0100 #### [facility] [address] [place], [address] Carbon dioxide, total [Moles /volume] in Central venous bloodOrdered By: Prashanth Castanon on 03-16-2025 CO2 [Moles/Vol] 23.7 mmol/L Normal 21.0-32.0 [facility] Comment on above: Performed By: #### L 501.4021, L500.2500, L501.9520, L100.0100 #### [facility] [address] [place], [address] Chest 1 View (Portable)on Chest 1 View (Portable) [facility] Imaging Services [address] [place] [address] Chest 1 View (Portable) MR#: [id number] Acct: [id number] Name: BOAZ GOLDSTEIN Rep #: [id number] : 1965 F 59 From: Nathanael Herman MD PCP: Dr. Hu Hairston MD Status: REG ER Study: Chest 1 View (Portable) Date of Exam: 03/16/25 Exam# [id number] Ordering Dr: Prashanth Castanon DO PROCEDURE: CHEST 1 VIEW (PORTABLE) 03/16/2025 REASON FOR EXAM: DYSPNEA TECHNIQUE: Frontal view of the chest. COMPARISON: 03/02/2025 FINDINGS: Lungs/Pleura: No focal consolidation, pneumothorax or sizable pleural effusion. Heart/Mediastinum: Mild cardiomegaly, with central vascular congestion. Bones/Soft tissues: No significant abnormality. RAD/Chest 1 View (Portable) IMPRESSION: Mild cardiomegaly with vascular congestion. No airspace consolidation or sizable pleural effusion. Reading Location: [id number] CC: Dr. Hu Hairston MD; Dr. Prashanth Castanon DO Shipping Supervisor: Signed Normal [facility] Chloride assayOrdered By: Sarina Castanon on 03-16-2025 Chloride [Moles/Vol] 106 mmol/L Normal 98-108 [facility] Comment on above: Performed By: #### L 501.4021, L500.2500, L501.9520, L100.0100 #### [facility] [address] [place], [address] Emergency Department Summary on 03-16-2025 Emergency Department Summary [facility] Medical Records Department [address] [place] [address] Emergency Department Summary 03/16/25 MR#: [id number] Acct: [id number] Name: BOAZ GOLDSTEIN Rep #: [id number] : 1965 59 From: Prashanth Castanon DO PCP: Dr. Hu Hairston MD Status:DEP ER Location: ED HPI History of Present Illness Chief Complaint: Shortness of Breath Detail of Chief Complaint: Shortness of breath Informant: patient Narrative Narrative: Patient presents with worsening shortness of breath over the last week. Also complains of tightness in her throat and at times feels like she cannot swallow right. She tells me she has history of enlarged thyroid and had an ultrasound years ago of her thyroid. She has history of asthma and COPD and is always chronically short of breath. She denied history of anxiety or panic attacks. She denies recent travel or surgery. She denies chest pain. She has minimal cough. She denies fever. [facility] Medical History Alcohol use Abscessed [...] mg PO DAILY #90 tabs 05/07/22 Rx atorvastatin 10 mg tablet 10 mg PO QHS #90 tabs 05/07/22 Rx albuterol sulfate 90 mcg/actuation 2 puff inhalation Q4H PRN 02/22/24 History aerosol inhaler shortness of breath or wheezing aspirin 81 mg chewable tablet 1 tab PO DAILY 03/03/25 Unknown Hi story levothyroxine 137 mcg tablet 137 mcg PO DAILY 03/04/25 Unknown History lorazepam 1 mg tablet (Ativan) 1 mg PO TID PRN anxiety #10 tabs 0 03/16/25 Unknown Rx prednisone 20 mg tablet 20 mg PO BID #10 tabs 07/18/25 Unk nown Rx Allergy/AdvReac Type Severity Reaction Status Date / Time cephalexin monohydrate (From Allergy Hives Verified 03/16/25 15:33 Keflex) latex Allergy Rash Verified 03/16/25 15:33 Penicillins (PCN) Allergy Hives Verified 03/16/25 15:33 Family History Grandfather Kidney disease Heart disease Colon cancer Sister Lung cancer Seizures Mother Cancer Diabetes Daughter Hypertension Thyroid disorder Surgical History Hx of colonoscopy History of cholecystectomy History of delivery Social History Smoking Status: Former smoker second hand exposure: Yes quit status: not considering quitting alcohol intake: never substance use type: does not use caffeine: Yes what type of physical activity do you participate in: none seatbelt use: always do you feel safe at home: Yes additional social history: Employed Self reliance single ROS ROS ED Review of Systems ROS Unobtainable: other Constitutional Constitutional ED: Reports lethargy; Denies chills, fever(s), sweats or weight loss Eyes Eyes: Denies blurry vision, change in vision or diplopia ENT ENT ED: Denies rhinorrhea or sore throat Cardiovascular Cardiovascular: Denies chest pain, orthopnea or racing heartbeat Respiratory/Chest Respiratory/Chest: Reports cough and dyspnea; Denies dyspnea on exertion, orthopnea or sputum Gastrointestinal Gastrointestinal: Denies abdominal pain, diarrhea, nausea or vomiting Genitourinary Genitourinary ED: Denies dysuria, hematuria or urinary frequency Musculoskeletal Musculoskeletal: Denies arthralgias, back pain, myalgias or neck pain Integumentary Denies abscess, Abrasions or rash Neurologic Neurologic: Denies headache(s) or weakness Psychiatric Psychiatric: Denies anxiety, depression or suicidal thoughts Endocrine Endocrinology: Denies polydipsia, polyphagia or polyuria Hematologic/Lymphat ic Hematologic/Lymphat ic: Denies easy bleeding, easy bruising or lymphadenopathy Allergic/Immunologi c Allergic/Immunologi c ED: Denies mouth swelling, tongue swelling or urticaria EXAM Physical Exam Const Vital Signs: 03/16/25 15:33 03/16/25 15:42 03/16/25 15:42 Temperature 98.5 F Temperature Source Oral Pulse Rate 96 93 Respiratory Rate 16 20 H Respiratory Effort Short of Breath Labored Respiratory Depth Shallow Respirat (more content not included)... Normal [facility] Eosinophil percentageOrdered By: Prashanth Castanon on 03-16-2025 Eosinophils/100 WBC (Bld) 1.2 % Normal 0-5 [facility] Comment on above: Performed By: #### L 501.4021, L500.2500, L501.9520, L100.0100 #### [facility] [address] [place], [address] Erythrocyte distribution wid th ratioOrdered By: Prashanth Castanon on 03-16-2025 Erythrocyte distribution width (RBC) [Ratio] 14.6 % Normal 11.6-14.6 [facility] Comment on above: Performed By: #### L 501.4021, L500.2500, L501.9520, L100.0100 #### [facility] [address] [place], [address] Erythrocyte distribution wid th standard deviationOrdered By: Prashanth Castanon on 03-16-2025 Erythrocyte distribution width (RBC) [Ratio] 49.8 fl High 35.1-43.9 [facility] Glomerular filtration rate ( GFR) estimation/1.73 sq m using serum, plasma, or whole bOrdered By: Prashanth Castanon on 03-16-2025 GFR/1.73 sq M.predicted among non-blacks MDRD (S/P/Bld) [Vol rate/Area] 106 mL/min/{1.73_m2} Normal >60 [facility] Comment on above: mL/min/1.73m2 CKD-EP I Creatinine Equation (2020) Result Comment: mL/m in/1.73m2 CKD-EPI Creatinine Equation (2020) Performed By: #### L 501.4021, L500.2500, L501.9520, L100.0100 #### [facility] [address] [place], [address] Hemoglobin measurementOrdere d By: Prashanth Castanon on 03-16-2025 Hemoglobin (Bld) [Mass/Vol] 12.7 g/dL Normal 12.0-15.0 [facility] Comment on above: Performed By: #### L 501.4021, L500.2500, L501.9520, L100.0100 #### [facility] [address] [place], [address] Immature granulocytes/100 WB C Auto (Bld)Ordered By: Prashanth Castanon on 03-16-2025 Immature granulocytes/100 WBC (Bld) 0.700 % 0.0-0.9 [facility] Comment on above: IG% - Immature Granu locytes (promyelocytes, myelocytes and metamyelocytes) > 1% indicates that a LEFT SHIFT is Present. L499.0042on 03-16-2025 Trop T High Sen Normal <=14 [facility] Comment on above: Result Comment: [facility] DEPARTED ER. Performed By: #### L 499.0043 #### [facility] [address] [place], [address] L499.0043on 03-16-2025 Trop T High Sen Normal <=14 [facility] Comment on above: Result Comment: Canc elled via OM: Order cancelled - Patient discharged Performed By: #### L 499.0043 #### [facility] [address] [place], [address] L501.4021on 03-16-2025 Trop T High Sen < 6 Normal <=14 [facility] Comment on above: Performed By: #### L 501.4021, L500.2500, L501.9520, L100.0100 #### [facility] [address] [place], [address] MCV (mean corpuscular volume ) determinationOrdered By: Prashanth Castanon on 03-16-2025 MCV (RBC) [Entitic vol] 93.3 fL Normal 81-99 [facility] Comment on above: Performed By: #### L 501.4021, L500.2500, L501.9520, L100.0100 #### [facility] [address] [place], [address] Mean corpuscular hemoglobin (MCH) determinationOrdered By: Remus Ungur on 03-16-2025 MCH (RBC) [Entitic mass] 31.8 pg Normal 27.0-32.0 [facility] Comment on above: Performed By: #### L 501.4021, L500.2500, L501.9520, L100.0100 #### [facility] [address] [place], [address] Mean corpuscular hemoglobin concentration (MCHC) determinationOrdered By: Remus Ungur on 03-16-2025 MCHC (RBC) [Mass/Vol] 34.0 g/dL Normal 32-36 [facility] Comment on above: Performed By: #### L 501.4021, L500.2500, L501.9520, L100.0100 #### [facility] [address] [place], [address] Mean platelet volume determi nationOrdered By: Remus Ungur on 03-16-2025 Platelet mean volume (Bld) [Entitic vol] 10.4 fL Normal 6.2-12.0 [facility] Comment on above: Performed By: #### L 501.4021, L500.2500, L501.9520, L100.0100 #### [facility] [address] [place], [address] Monocyte percentageOrdered B y: Remus Ungur on 03-16-2025 Monocytes/100 WBC (Bld) 6.5 % Normal 0-10 [facility] Comment on above: Performed By: #### L 501.4021, L500.2500, L501.9520, L100.0100 #### [facility] [address] [place], [address] Neutrophil percentageOrdered By: Prashanth Shaikhclinton on 03-16-2025 Neutrophils/100 WBC (Bld) 62.8 % Normal 47-70 [facility] Comment on above: Performed By: #### L 501.4021, L500.2500, L501.9520, L100.0100 #### [facility] [address] [place], [address] Nucleated red blood cell per centageOrdered By: Prashanth Lg on 03-16-2025 Nucleated RBC/100 WBC (Bld) [Ratio] 0 % 0-5 [facility] Platelet countOrdered By: Re jama Castanon on 03-16-2025 Platelets (Bld) [#/Vol] 236 10*3/uL Normal 150-450 [facility] Comment on above: Performed By: #### L 501.4021, L500.2500, L501.9520, L100.0100 #### [facility] [address] [place], [address] Potassium measurement (mass/ volume)Ordered By: Prashanth Lg on 03-16-2025 Potassium (Unsp spec) [Mass/Vol] 3.1 mmol/L Low 3.3-5.1 [facility] Serum creatinine measurement (mass/volume)Ordered By: Prashanth Lg on 03-16-2025 Creatinine [Mass/Vol] 0.51 mg/dL Low 0.70-1.20 [facility] Comment on above: Performed By: #### L 501.4021, L500.2500, L501.9520, L100.0100 #### [facility] [address] [place], [address] Serum glucose measurement (m ass/volume)Ordered By: Prashanth Lg on 03-16-2025 Glucose [Mass/Vol] 114 mg/dL High 70-99 [facility] Comment on above: Performed By: #### L 501.4021, L500.2500, L501.9520, L100.0100 #### [facility] [address] [place], [address] Serum or plasma calcium gómez urement (mass/volume)Ordered By: Prashanth Castanon on 03-16-2025 Calcium [Mass/Vol] 8.8 mg/dL Normal 7.6-11.0 [facility] Comment on above: Performed By: #### L 501.4021, L500.2500, L501.9520, L100.0100 #### [facility] [address] [place], [address] Serum or plasma urea nitroge n measurement (mass/volume)Ordered By: Prashanth Castanon on 03-16-2025 Urea nitrogen [Mass/Vol] 10 mg/dL Normal 4-19 [facility] Comment on above: Performed By: #### L 501.4021, L500.2500, L501.9520, L100.0100 #### [facility] [address] [place], [address] Sodium levelOrdered By: Kia Castanon on 03-16-2025 Sodium [Moles/Vol] 142 mmol/L Normal 133-145 [facility] Comment on above: Performed By: #### L 501.4021, L500.2500, L501.9520, L100.0100 #### [facility] [address] [place], [address] Soft Tissue Neck WITH Contra ston 03-16-2025 Soft Tissue Neck WITH Contrast [facility] [address] [place] [address] Soft Tissue Neck WITH Contrast MR#: [id number] Acct: [id number] Name: BOAZ GOLDSTEIN Rep #: [id number] : 1965 F 59 From: Dane Fonseca MD PCP: Dr. Hu Hairston MD Status: [facility] Study: Soft Tissue Neck WITH Contrast Date of Exam: 0 03/16/25 Exam# [id number] Ordering Dr: Prashanth Castanon DO PROCEDURE: SOFT TISSUE NECK WITH CONTRAST 03/16/2025 REASON FOR EXAM: THROAT TIGHTNESS, DYSPNEA TECHNIQUE: SOFT TISSUE NECK WITH CONTRAST CONTRAST: Isovue 370 VOLUME: 97 mL One or more dose reduction techniques were used (e.g., Automated exposure control, adjustment of the mA and/or kV according to patient size, use of iterative reconstruction technique). RADIATION DOSE SUMMARY: CTDlvol: 16.35 mGy DLP: 559.59 mGycm COMPARISON: 11/12/2021 FINDINGS: Symmetric orbits. Normal nasopharynx. Normal parotid glands. Normal submandibular glands. Normal epiglottis and vocal folds. No subglottic narrowing. Intact thoracic inlet. No enlarged cervical lymph nodes. Normal jugular vein and carotid artery. CT/Soft Tissue Neck WITH Contrast IMPRESSION: No acute abnormality. Reading [facility] CC: Dr. Hu Hairston MD; Dr. Prashanth Castanon DO Shipping Supervisor: Signed Normal [facility] TSH DL <= 0.005 mIU/L QnOrde red By: Prashanth Castanon on 03-16-2025 TSH Qn 2.420 uIU/mL 0.300-4.200 [facility] Thyroid Stim Hormone (TSH)on 03-16-2025 TSH 2.420 uIU/mL Normal 0.300-4.200 [facility] Comment on above: Performed By: #### L 501.4021, L500.2500, L501.9520, L100.0100 #### [facility] [address] [place], [address] Troponin T.cardiac [Mass/vol ume] in Serum or Plasma by High sensitivity methodOrdered By: Prashanth Castanon on 03-16-2025 Troponin T.cardiac High sensitivity method [Mass/Vol] < 6 ng/L <14 [facility] White blood cell (WBC) count Ordered By: Prashanth Castanon on 03-16-2025 WBC (Bld) [#/Vol] 12.1 10*3/uL High 4.4-11.0 [facility] Comment on above: Performed By: #### L 501.4021, L500.2500, L501.9520, L100.0100 #### [facility] [address] [place], [address] CBC W/Diff, Automatedon 07-1 Absolute Neut Normal 2.0-7.7 [facility] Comment on above: Result Comment: Canc elled via OM: Order cancelled - Patient discharged Performed By: #### L 501.4021, L500.2500, L501.9520, L100.0100 #### [facility] [address] [place], [address] HCT Normal 37-47 [facility] Comment on above: Result Comment: Canc elled via OM: Order cancelled - Patient discharged Performed By: #### L 501.4021, L500.2500, L501.9520, L100.0100 #### [facility] [address] [place], [address] HGB Normal 12.0-15.0 [facility] Comment on above: Result Comment: Canc elled via OM: Order cancelled - Patient discharged Performed By: #### L 501.4021, L500.2500, L501.9520, L100.0100 #### [facility] [address] [place], [address] MCH Normal 27.0-32.0 [facility] Comment on above: Result Comment: Canc elled via OM: Order cancelled - Patient discharged Performed By: #### L 501.4021, L500.2500, L501.9520, L100.0100 #### [facility] [address] [place], [address] MCHC Normal 32-36 [facility] Comment on above: Result Comment: Canc elled via OM: Order cancelled - Patient discharged Performed By: #### L 501.4021, L500.2500, L501.9520, L100.0100 #### [facility] [address] [place], [address] MCV Normal 81-99 [facility] Comment on above: Result Comment: Canc elled via OM: Order cancelled - Patient discharged Performed By: #### L 501.4021, L500.2500, L501.9520, L100.0100 #### [facility] [address] [place], [address] NEUT% Normal 47-70 [facility] Comment on above: Result Comment: Canc elled via OM: Order cancelled - Patient discharged Performed By: #### L 501.4021, L500.2500, L501.9520, L100.0100 #### [facility] [address] [place], [address] PLT Normal 150-450 [facility] Comment on above: Result Comment: Canc elled via OM: Order cancelled - Patient discharged Performed By: #### L 501.4021, L500.2500, L501.9520, L100.0100 #### [facility] [address] [place], [address] RBC Normal 4.2-5.4 [facility] Comment on above: Result Comment: Canc elled via OM: Order cancelled - Patient discharged Performed By: #### L 501.4021, L500.2500, L501.9520, L100.0100 #### [facility] [address] [place], [address] RDW CV Normal 11.6-14.6 [facility] Comment on above: Result Comment: Canc elled via OM: Order cancelled - Patient discharged Performed By: #### L 501.4021, L500.2500, L501.9520, L100.0100 #### [facility] [address] [place], [address] RDW SD Normal 35.1-43.9 [facility] Comment on above: Result Comment: Canc elled via OM: Order cancelled - Patient discharged Performed By: #### L 501.4021, L500.2500, L501.9520, L100.0100 #### [facility] [address] [place], [address] WBC Normal 4.4-11.0 [facility] Comment on above: Result Comment: Canc elled via OM: Order cancelled - Patient discharged Performed By: #### L 501.4021, L500.2500, L501.9520, L100.0100 #### [facility] [address] [place], [address] Comprehensive Metabolic Prof ilon 03-12-2025 ALB Normal 3.4-4.8 [facility] Comment on above: Result Comment: Canc elled via OM: Order cancelled - Patient discharged Performed By: #### L 501.4021, L500.2500, L501.9520, L100.0100 #### [facility] [address] [place], [address] ALK PHOS Normal 35-104 [facility] Comment on above: Result Comment: Canc elled via OM: Order cancelled - Patient discharged Performed By: #### L 501.4021, L500.2500, L501.9520, L100.0100 #### [facility] [address] [place], [address] ALT Normal <=34 [facility] Comment on above: Result Comment: Canc elled via OM: Order cancelled - Patient discharged Performed By: #### L 501.4021, L500.2500, L501.9520, L100.0100 #### [facility] [address] [place], [address] AST Normal <=31 [facility] Comment on above: Result Comment: Canc elled via OM: Order cancelled - Patient discharged Performed By: #### L 501.4021, L500.2500, L501.9520, L100.0100 #### [facility] [address] [place], [address] BUN Normal 4-19 [facility] Comment on above: Result Comment: Canc elled via OM: Order cancelled - Patient discharged Performed By: #### L 501.4021, L500.2500, L501.9520, L100.0100 #### [facility] [address] [place], [address] BUN/CRE Normal 10-20 [facility] Comment on above: Result Comment: Canc elled via OM: Order cancelled - Patient discharged Performed By: #### L 501.4021, L500.2500, L501.9520, L100.0100 #### [facility] [address] [place], [address] Calcium Normal 7.6-11.0 [facility] Comment on above: Result Comment: Canc elled via OM: Order cancelled - Patient discharged Performed By: #### L 501.4021, L500.2500, L501.9520, L100.0100 #### [facility] [address] [place], [address] CL Normal 98-108 [facility] Comment on above: Result Comment: Canc elled via OM: Order cancelled - Patient discharged Performed By: #### L 501.4021, L500.2500, L501.9520, L100.0100 #### [facility] [address] [place], [address] CO2 Normal 21.0-32.0 [facility] Comment on above: Result Comment: Canc elled via OM: Order cancelled - Patient discharged Performed By: #### L 501.4021, L500.2500, L501.9520, L100.0100 #### [facility] [address] [place], [address] CREAT,SERUM Normal 0.70-1.20 [facility] Comment on above: Result Comment: Canc elled via OM: Order cancelled - Patient discharged Performed By: #### L 501.4021, L500.2500, L501.9520, L100.0100 #### [facility] [address] [place], [address] eGFR Normal >60 [facility] Comment on above: Result Comment: Canc elled via OM: Order cancelled - Patient discharged Performed By: #### L 501.4021, L500.2500, L501.9520, L100.0100 #### [facility] [address] [place], [address] GAP Normal 5-15 [facility] Comment on above: Result Comment: Canc elled via OM: Order cancelled - Patient discharged Performed By: #### L 501.4021, L500.2500, L501.9520, L100.0100 #### [facility] [address] [place], [address] GLU Normal 70-99 [facility] Comment on above: Result Comment: Canc elled via OM: Order cancelled - Patient discharged Performed By: #### L 501.4021, L500.2500, L501.9520, L100.0100 #### [facility] [address] [place], [address] Potassium Normal 3.3-5.1 [facility] Comment on above: Result Comment: Canc elled via OM: Order cancelled - Patient discharged Performed By: #### L 501.4021, L500.2500, L501.9520, L100.0100 #### [facility] [address] [place], [address] T BILI Normal 0.00-1.30 [facility] Comment on above: Result Comment: Canc elled via OM: Order cancelled - Patient discharged Performed By: #### L 501.4021, L500.2500, L501.9520, L100.0100 #### [facility] [address] [place], [address] T PROT Normal 5.9-8.4 [facility] Comment on above: Result Comment: Canc elled via OM: Order cancelled - Patient discharged Performed By: #### L 501.4021, L500.2500, L501.9520, L100.0100 #### [facility] [address] [place], [address] Comprehensive Metabolic Profil Normal 133-145 [facility] Comment on above: Result Comment: Canc elled via OM: Order cancelled - Patient discharged Performed By: #### L 501.4021, L500.2500, L501.9520, L100.0100 #### [facility] [address] [place], [address] CBC W/Diff, Automatedon 07-1 -2024 Absolute Neut Normal 2.0-7.7 [facility] Comment on above: Result Comment: Canc elled via OM: Order cancelled - Patient discharged Performed By: #### L 500.4050, L100.0100 ####[facility] [address] [place], [address] HCT Normal 37-47 [facility] Comment on above: Result Comment: Canc elled via OM: Order cancelled - Patient discharged Performed By: #### L 500.4050, L100.0100 ####[facility] [address] [place], [address] HGB Normal 12.0-15.0 [facility] Comment on above: Result Comment: Canc elled via OM: Order cancelled - Patient discharged Performed By: #### L 500.4050, L100.0100 ####[facility] [address] [place], [address] MCH Normal 27.0-32.0 [facility] Comment on above: Result Comment: Canc elled via OM: Order cancelled - Patient discharged Performed By: #### L 500.4050, L100.0100 ####[facility] [address] [place], [address] MCHC Normal 32-36 [facility] Comment on above: Result Comment: Canc elled via OM: Order cancelled - Patient discharged Performed By: #### L 500.4050, L100.0100 ####[facility] [address] [place], [address] MCV Normal 81-99 [facility] Comment on above: Result Comment: Canc elled via OM: Order cancelled - Patient discharged Performed By: #### L 500.4050, L100.0100 ####[facility] [address] [place], [address] NEUT% Normal 47-70 [facility] Comment on above: Result Comment: Canc elled via OM: Order cancelled - Patient discharged Performed By: #### L 500.4050, L100.0100 ####[facility] [address] [place], [address] PLT Normal 150-450 [facility] Comment on above: Result Comment: Canc elled via OM: Order cancelled - Patient discharged Performed By: #### L 500.4050, L100.0100 ####[facility] [address] [place], [address] RBC Normal 4.2-5.4 [facility] Comment on above: Result Comment: Canc elled via OM: Order cancelled - Patient discharged Performed By: #### L 500.4050, L100.0100 ####[facility] [address] [place], [address] RDW CV Normal 11.6-14.6 [facility] Comment on above: Result Comment: Canc elled via OM: Order cancelled - Patient discharged Performed By: #### L 500.4050, L100.0100 ####[facility] [address] [place], [address] RDW SD Normal 35.1-43.9 [facility] Comment on above: Result Comment: Canc elled via OM: Order cancelled - Patient discharged Performed By: #### L 500.4050, L100.0100 ####[facility] [address] [place], [address] WBC Normal 4.4-11.0 [facility] Comment on above: Result Comment: Canc elled via OM: Order cancelled - Patient discharged Performed By: #### L 500.4050, L100.0100 ####[facility] [address] [place], [address] Comprehensive Metabolic Prof ilon 03-11-2025 ALB Normal 3.4-4.8 [facility] Comment on above: Result Comment: Canc elled via OM: Order cancelled - Patient discharged Performed By: #### L 500.4050, L100.0100 #### [facility] [address] [place], [address] ALK PHOS Normal 35-104 [facility] Comment on above: Result Comment: Canc elled via OM: Order cancelled - Patient discharged Performed By: #### L 500.4050, L100.0100 #### [facility] [address] [place], [address] ALT Normal <=34 [facility] Comment on above: Result Comment: Canc elled via OM: Order cancelled - Patient discharged Performed By: #### L 500.4050, L100.0100 #### [facility] [address] [place], [address] AST Normal <=31 [facility] Comment on above: Result Comment: Canc elled via OM: Order cancelled - Patient discharged Performed By: #### L 500.4050, L100.0100 #### [facility] [address] [place], [address] BUN Normal 4-19 [facility] Comment on above: Result Comment: Canc elled via OM: Order cancelled - Patient discharged Performed By: #### L 500.4050, L100.0100 #### [facility] [address] [place], [address] BUN/CRE Normal 10-20 [facility] Comment on above: Result Comment: Canc elled via OM: Order cancelled - Patient discharged Performed By: #### L 500.4050, L100.0100 #### [facility] [address] [place], [address] Calcium Normal 7.6-11.0 [facility] Comment on above: Result Comment: Canc elled via OM: Order cancelled - Patient discharged Performed By: #### L 500.4050, L100.0100 #### [facility] [address] [place], [address] CL Normal 98-108 [facility] Comment on above: Result Comment: Canc elled via OM: Order cancelled - Patient discharged Performed By: #### L 500.4050, L100.0100 #### [facility] [address] [place], [address] CO2 Normal 21.0-32.0 [facility] Comment on above: Result Comment: Canc elled via OM: Order cancelled - Patient discharged Performed By: #### L 500.4050, L100.0100 #### [facility] [address] [place], [address] CREAT,SERUM Normal 0.70-1.20 [facility] Comment on above: Result Comment: Canc elled via OM: Order cancelled - Patient discharged Performed By: #### L 500.4050, L100.0100 #### [facility] [address] [place], [address] eGFR Normal >60 [facility] Comment on above: Result Comment: Canc elled via OM: Order cancelled - Patient discharged Performed By: #### L 500.4050, L100.0100 #### [facility] [address] [place], [address] GAP Normal 5-15 [facility] Comment on above: Result Comment: Canc elled via OM: Order cancelled - Patient discharged Performed By: #### L 500.4050, L100.0100 #### [facility] [address] [place], [address] GLU Normal 70-99 [facility] Comment on above: Result Comment: Canc elled via OM: Order cancelled - Patient discharged Performed By: #### L 500.4050, L100.0100 #### [facility] [address] [place], [address] Potassium Normal 3.3-5.1 [facility] Comment on above: Result Comment: Canc elled via OM: Order cancelled - Patient discharged Performed By: #### L 500.4050, L100.0100 #### [facility] [address] [place], [address] T BILI Normal 0.00-1.30 [facility] Comment on above: Result Comment: Canc elled via OM: Order cancelled - Patient discharged Performed By: #### L 500.4050, L100.0100 #### [facility] [address] [place], [address] T PROT Normal 5.9-8.4 [facility] Comment on above: Result Comment: Canc elled via OM: Order cancelled - Patient discharged Performed By: #### L 500.4050, L100.0100 #### [facility] [address] [place], [address] Comprehensive Metabolic Profil Normal 133-145 [facility] Comment on above: Result Comment: Canc elled via OM: Order cancelled - Patient discharged Performed By: #### L 500.4050, L100.0100 #### [facility] [address] [place], [address] CBC W/Diff, Automatedon 07- Absolute Neut Normal 2.0-7.7 [facility] Comment on above: Result Comment: Canc elled via OM: Order cancelled - Patient discharged Performed By: #### L 499.0043 #### [facility] [address] [place], [address] HCT Normal 37-47 [facility] Comment on above: Result Comment: Canc elled via OM: Order cancelled - Patient discharged Performed By: #### L 499.0043 #### [facility] [address] [place], [address] HGB Normal 12.0-15.0 [facility] Comment on above: Result Comment: Canc elled via OM: Order cancelled - Patient discharged Performed By: #### L 499.0043 #### [facility] [address] [place], [address] MCH Normal 27.0-32.0 [facility] Comment on above: Result Comment: Canc elled via OM: Order cancelled - Patient discharged Performed By: #### L 499.0043 #### [facility] [address] [place], [address] MCHC Normal 32-36 [facility] Comment on above: Result Comment: Canc elled via OM: Order cancelled - Patient discharged Performed By: #### L 499.0043 #### [facility] [address] [place], [address] MCV Normal 81-99 [facility] Comment on above: Result Comment: Canc elled via OM: Order cancelled - Patient discharged Performed By: #### L 499.0043 #### [facility] [address] [place], [address] NEUT% Normal 47-70 [facility] [facility] Comment on above: Result Comment: Canc elled via OM: Order cancelled - Patient discharged Performed By: #### L 499.0043 #### [facility] [address] [place], [address] PLT Normal 150-450 [facility] Comment on above: Result Comment: Canc elled via OM: Order cancelled - Patient discharged Performed By: #### L 499.0043 #### [facility] [address] [place], [address] RBC Normal 4.2-5.4 [facility] Comment on above: Result Comment: Canc elled via OM: Order cancelled - Patient discharged Performed By: #### L 499.0043 #### [facility] [address] [place], [address] RDW CV Normal 11.6-14.6 [facility] Comment on above: Result Comment: Canc elled via OM: Order cancelled - Patient discharged Performed By: #### L 499.0043 #### [facility] [address] [place], [address] RDW SD Normal 35.1-43.9 [facility] Comment on above: Result Comment: Canc elled via OM: Order cancelled - Patient discharged Performed By: #### L 499.0043 #### [facility] [address] [place], [address] WBC Normal 4.4-11.0 [facility] Comment on above: Result Comment: Canc elled via OM: Order cancelled - Patient discharged Performed By: #### L 499.0043 #### [facility] [address] [place], [address] Comprehensive Metabolic Prof ilon 03-10-2025 ALB Normal 3.4-4.8 [facility] Comment on above: Result Comment: Canc elled via OM: Order cancelled - Patient discharged Performed By: #### L 499.0043 #### [facility] [address] [place], [address] ALK PHOS Normal 35-104 [facility] Comment on above: Result Comment: Canc elled via OM: Order cancelled - Patient discharged Performed By: #### L 499.0043 #### [facility] [address] [place], [address] ALT Normal <=34 [facility] Comment on above: Result Comment: Canc elled via OM: Order cancelled - Patient discharged Performed By: #### L 499.0043 #### [facility] [address] [place], [address] AST Normal <=31 [facility] Comment on above: Result Comment: Canc elled via OM: Order cancelled - Patient discharged Performed By: #### L 499.0043 #### [facility] [address] [place], [address] BUN Normal 4-19 [facility] Comment on above: Result Comment: Canc elled via OM: Order cancelled - Patient discharged Performed By: #### L 499.0043 #### [facility] [address] [place], [address] BUN/CRE Normal 10-20 [facility] Comment on above: Result Comment: Canc elled via OM: Order cancelled - Patient discharged Performed By: #### L 499.0043 #### [facility] [address] [place], [address] Calcium Normal 7.6-11.0 [facility] Comment on above: Result Comment: Canc elled via OM: Order cancelled - Patient discharged Performed By: #### L 499.0043 #### [facility] [address] [place], [address] CL Normal 98-108 [facility] Comment on above: Result Comment: Canc elled via OM: Order cancelled - Patient discharged Performed By: #### L 499.0043 #### [facility] [address] [place], [address] CO2 Normal 21.0-32.0 [facility] Comment on above: Result Comment: Canc elled via OM: Order cancelled - Patient discharged Performed By: #### L 499.0043 #### [facility] [address] [place], [address] CREAT,SERUM Normal 0.70-1.20 [facility] Comment on above: Result Comment: Canc elled via OM: Order cancelled - Patient discharged Performed By: #### L 499.0043 #### [facility] [address] [place], [address] eGFR Normal >60 [facility] Comment on above: Result Comment: Canc elled via OM: Order cancelled - Patient discharged Performed By: #### L 499.0043 #### [facility] [address] [place], [address] GAP Normal 5-15 [facility] Comment on above: Result Comment: Canc elled via OM: Order cancelled - Patient discharged Performed By: #### L 499.0043 #### [facility] [address] [place], [address] GLU Normal 70-99 [facility] Comment on above: Result Comment: Canc elled via OM: Order cancelled - Patient discharged Performed By: #### L 499.0043 #### [facility] [address] [place], [address] Potassium Normal 3.3-5.1 [facility] Comment on above: Result Comment: Canc elled via OM: Order cancelled - Patient discharged Performed By: #### L 499.0043 #### [facility] [address] [place], [address] T BILI Normal 0.00-1.30 [facility] Comment on above: Result Comment: Canc elled via OM: Order cancelled - Patient discharged Performed By: #### L 499.0043 #### [facility] [address] [place], [address] T PROT Normal 5.9-8.4 [facility] Comment on above: Result Comment: Canc elled via OM: Order cancelled - Patient discharged Performed By: #### L 499.0043 #### [facility] [address] [place], [address] Comprehensive Metabolic Profil Normal 133-145 [facility] Comment on above: Result Comment: Canc elled via OM: Order cancelled - Patient discharged Performed By: #### L 499.0043 #### [facility] [address] [place], [address] CBC W/Diff, Automatedon 07-1 Absolute Neut Normal 2.0-7.7 [facility] Comment on above: Result Comment: Canc elled via OM: Order cancelled - Patient discharged Performed By: #### L 501.4021, L500.2500, L501.9520, L100.0100 #### [facility] [address] [place], [address] HCT Normal 37-47 [facility] Comment on above: Result Comment: Canc elled via OM: Order cancelled - Patient discharged Performed By: #### L 501.4021, L500.2500, L501.9520, L100.0100 #### [facility] [address] [place], [address] HGB Normal 12.0-15.0 [facility] Comment on above: Result Comment: Canc elled via OM: Order cancelled - Patient discharged Performed By: #### L 501.4021, L500.2500, L501.9520, L100.0100 #### [facility] [address] [place], [address] MCH Normal 27.0-32.0 [facility] Comment on above: Result Comment: Canc elled via OM: Order cancelled - Patient discharged Performed By: #### L 501.4021, L500.2500, L501.9520, L100.0100 #### [facility] [address] [place], [address] MCHC Normal 32-36 [facility] Comment on above: Result Comment: Canc elled via OM: Order cancelled - Patient discharged Performed By: #### L 501.4021, L500.2500, L501.9520, L100.0100 #### [facility] [address] [place], [address] MCV Normal 81-99 [facility] Comment on above: Result Comment: Canc elled via OM: Order cancelled - Patient discharged Performed By: #### L 501.4021, L500.2500, L501.9520, L100.0100 #### [facility] [address] [place], [address] NEUT% Normal 47-70 [facility] Comment on above: Result Comment: Canc elled via OM: Order cancelled - Patient discharged Performed By: #### L 501.4021, L500.2500, L501.9520, L100.0100 #### [facility] [address] [place], [address] PLT Normal 150-450 [facility] Comment on above: Result Comment: Canc elled via OM: Order cancelled - Patient discharged Performed By: #### L 501.4021, L500.2500, L501.9520, L100.0100 #### [facility] [address] [place], [address] RBC Normal 4.2-5.4 [facility] Comment on above: Result Comment: Canc elled via OM: Order cancelled - Patient discharged Performed By: #### L 501.4021, L500.2500, L501.9520, L100.0100 #### [facility] [address] [place], [address] RDW CV Normal 11.6-14.6 [facility] Comment on above: Result Comment: Canc elled via OM: Order cancelled - Patient discharged Performed By: #### L 501.4021, L500.2500, L501.9520, L100.0100 #### [facility] [address] [place], [address] RDW SD Normal 35.1-43.9 [facility] Comment on above: Result Comment: Canc elled via OM: Order cancelled - Patient discharged Performed By: #### L 501.4021, L500.2500, L501.9520, L100.0100 #### [facility] [address] [place], [address] WBC Normal 4.4-11.0 [facility] Comment on above: Result Comment: Canc elled via OM: Order cancelled - Patient discharged Performed By: #### L 501.4021, L500.2500, L501.9520, L100.0100 #### [facility] [address] [place], [address] Comprehensive Metabolic Prof ilon 03-09-2025 ALB Normal 3.4-4.8 [facility] Comment on above: Result Comment: Canc elled via OM: Order cancelled - Patient discharged Performed By: #### L 499.0043 #### [facility] [address] [place], [address] ALK PHOS Normal 35-104 [facility] Comment on above: Result Comment: Canc elled via OM: Order cancelled - Patient discharged Performed By: #### L 499.0043 #### [facility] [address] [place], [address] ALT Normal <=34 [facility] Comment on above: Result Comment: Canc elled via OM: Order cancelled - Patient discharged Performed By: #### L 499.0043 #### [facility] [address] [place], [address] AST Normal <=31 [facility] Comment on above: Result Comment: Canc elled via OM: Order cancelled - Patient discharged Performed By: #### L 499.0043 #### [facility] [address] [place], [address] BUN Normal 4-19 [facility] Comment on above: Result Comment: Canc elled via OM: Order cancelled - Patient discharged Performed By: #### L 499.0043 #### [facility] [address] [place], [address] BUN/CRE Normal 10-20 [facility] Comment on above: Result Comment: Canc elled via OM: Order cancelled - Patient discharged Performed By: #### L 499.0043 #### [facility] [address] [place], [address] Calcium Normal 7.6-11.0 [facility] Comment on above: Result Comment: Canc elled via OM: Order cancelled - Patient discharged Performed By: #### L 499.0043 #### [facility] [address] [place], [address] CL Normal 98-108 [facility] Comment on above: Result Comment: Canc elled via OM: Order cancelled - Patient discharged Performed By: #### L 499.0043 #### [facility] [address] [place], [address] CO2 Normal 21.0-32.0 [facility] Comment on above: Result Comment: Canc elled via OM: Order cancelled - Patient discharged Performed By: #### L 499.0043 #### [facility] [address] [place], [address] CREAT,SERUM Normal 0.70-1.20 [facility] Comment on above: Result Comment: Canc elled via OM: Order cancelled - Patient discharged Performed By: #### L 499.0043 #### [facility] [address] [place], [address] eGFR Normal >60 [facility] Comment on above: Result Comment: Canc elled via OM: Order cancelled - Patient discharged Performed By: #### L 499.0043 #### [facility] [address] [place], [address] GAP Normal 5-15 [facility] Comment on above: Result Comment: Canc elled via OM: Order cancelled - Patient discharged Performed By: #### L 499.0043 #### [facility] [address] [place], [address] GLU Normal 70-99 [facility] Comment on above: Result Comment: Canc elled via OM: Order cancelled - Patient discharged Performed By: #### L 499.0043 #### [facility] [address] [place], [address] Potassium Normal 3.3-5.1 [facility] Comment on above: Result Comment: Canc elled via OM: Order cancelled - Patient discharged Performed By: #### L 499.0043 #### [facility] [address] [place], [address] T BILI Normal 0.00-1.30 [facility] Comment on above: Result Comment: Canc elled via OM: Order cancelled - Patient discharged Performed By: #### L 499.0043 #### [facility] [address] [place], [address] T PROT Normal 5.9-8.4 [facility] Comment on above: Result Comment: Canc elled via OM: Order cancelled - Patient discharged Performed By: #### L 499.0043 #### [facility] [address] [place], [address] Comprehensive Metabolic Profil Normal 133-145 [facility] Comment on above: Result Comment: Canc elled via OM: Order cancelled - Patient discharged Performed By: #### L 499.0043 #### [facility] [address] [place], [address] Culture, Anaerobic Any Sourc nilson 03-09-2025 CUAN List Antibiotics Last 48 Hours? yes List Antibiotics to be Started? vancomyacin No growth in 5 days. Normal [facility] Comment on above: Performed By: #### L 501.4021, L500.2500, L501.9520, L100.0100 #### [facility] [address] [place], [address] CUAN List Antibiotics Last 48 Hours? vancomycin- clindamycin No growth in 5 days. Normal [facility] Comment on above: Performed By: #### M 100.3000, M100.2000, M100.4001 ####[facility] [address] [place], [address] CBC W/Diff, Automatedon 07- Absolute Neut Normal 2.0-7.7 [facility] Comment on above: Result Comment: Canc elled via OM: Order cancelled - Patient discharged Performed By: #### L 501.4021, L500.2500, L501.9520, L100.0100 #### [facility] [address] [place], [address] HCT Normal 37-47 [facility] Comment on above: Result Comment: Canc elled via OM: Order cancelled - Patient discharged Performed By: #### L 501.4021, L500.2500, L501.9520, L100.0100 #### [facility] [address] [place], [address] HGB Normal 12.0-15.0 [facility] Comment on above: Result Comment: Canc elled via OM: Order cancelled - Patient discharged Performed By: #### L 501.4021, L500.2500, L501.9520, L100.0100 #### [facility] [address] [place], [address] MCH Normal 27.0-32.0 [facility] Comment on above: Result Comment: Canc elled via OM: Order cancelled - Patient discharged Performed By: #### L 501.4021, L500.2500, L501.9520, L100.0100 #### [facility] [address] [place], [address] MCHC Normal 32-36 [facility] Comment on above: Result Comment: Canc elled via OM: Order cancelled - Patient discharged Performed By: #### L 501.4021, L500.2500, L501.9520, L100.0100 #### [facility] [address] [place], [address] MCV Normal 81-99 [facility] Comment on above: Result Comment: Canc elled via OM: Order cancelled - Patient discharged Performed By: #### L 501.4021, L500.2500, L501.9520, L100.0100 #### [facility] [address] [place], [address] NEUT% Normal 47-70 [facility] Comment on above: Result Comment: Canc elled via OM: Order cancelled - Patient discharged Performed By: #### L 501.4021, L500.2500, L501.9520, L100.0100 #### [facility] [address] [place], [address] PLT Normal 150-450 [facility] Comment on above: Result Comment: Canc elled via OM: Order cancelled - Patient discharged Performed By: #### L 501.4021, L500.2500, L501.9520, L100.0100 #### [facility] [address] [place], [address] RBC Normal 4.2-5.4 [facility] Comment on above: Result Comment: Canc elled via OM: Order cancelled - Patient discharged Performed By: #### L 501.4021, L500.2500, L501.9520, L100.0100 #### [facility] [address] [place], [address] RDW CV Normal 11.6-14.6 [facility] Comment on above: Result Comment: Canc elled via OM: Order cancelled - Patient discharged Performed By: #### L 501.4021, L500.2500, L501.9520, L100.0100 #### [facility] [address] [place], [address] RDW SD Normal 35.1-43.9 [facility] Comment on above: Result Comment: Canc elled via OM: Order cancelled - Patient discharged Performed By: #### L 501.4021, L500.2500, L501.9520, L100.0100 #### [facility] [address] [place], [address] WBC Normal 4.4-11.0 [facility] Comment on above: Result Comment: Canc elled via OM: Order cancelled - Patient discharged Performed By: #### L 501.4021, L500.2500, L501.9520, L100.0100 #### [facility] [address] [place], [address] Comprehensive Metabolic Prof kathrin 03-08-2025 ALB Normal 3.4-4.8 [facility] Comment on above: Result Comment: Canc elled via OM: Order cancelled - Patient discharged Performed By: #### L 501.4021, L500.2500, L501.9520, L100.0100 #### [facility] [address] [place], [address] ALK PHOS Normal 35-104 [facility] Comment on above: Result Comment: Canc elled via OM: Order cancelled - Patient discharged Performed By: #### L 501.4021, L500.2500, L501.9520, L100.0100 #### [facility] [address] [place], [address] ALT Normal <=34 [facility] Comment on above: Result Comment: Canc elled via OM: Order cancelled - Patient discharged Performed By: #### L 501.4021, L500.2500, L501.9520, L100.0100 #### [facility] [address] [place], [address] AST Normal <=31 [facility] Comment on above: Result Comment: Canc elled via OM: Order cancelled - Patient discharged Performed By: #### L 501.4021, L500.2500, L501.9520, L100.0100 #### [facility] [address] [place], [address] BUN Normal 4-19 [facility] Comment on above: Result Comment: Canc elled via OM: Order cancelled - Patient discharged Performed By: #### L 501.4021, L500.2500, L501.9520, L100.0100 #### [facility] [address] [place], [address] BUN/CRE Normal 10-20 [facility] Comment on above: Result Comment: Canc elled via OM: Order cancelled - Patient discharged Performed By: #### L 501.4021, L500.2500, L501.9520, L100.0100 #### [facility] [address] [place], [address] Calcium Normal 7.6-11.0 [facility] Comment on above: Result Comment: Canc elled via OM: Order cancelled - Patient discharged Performed By: #### L 501.4021, L500.2500, L501.9520, L100.0100 #### [facility] [address] [place], [address] CL Normal 98-108 [facility] Comment on above: Result Comment: Canc elled via OM: Order cancelled - Patient discharged Performed By: #### L 501.4021, L500.2500, L501.9520, L100.0100 #### [facility] [address] [place], [address] CO2 Normal 21.0-32.0 [facility] Comment on above: Result Comment: Canc elled via OM: Order cancelled - Patient discharged Performed By: #### L 501.4021, L500.2500, L501.9520, L100.0100 #### [facility] [address] [place], [address] CREAT,SERUM Normal 0.70-1.20 [facility] Comment on above: Result Comment: Canc elled via OM: Order cancelled - Patient discharged Performed By: #### L 501.4021, L500.2500, L501.9520, L100.0100 #### [facility] [address] [place], [address] eGFR Normal >60 [facility] Comment on above: Result Comment: Canc elled via OM: Order cancelled - Patient discharged Performed By: #### L 501.4021, L500.2500, L501.9520, L100.0100 #### [facility] [address] [place], [address] GAP Normal 5-15 [facility] Comment on above: Result Comment: Canc elled via OM: Order cancelled - Patient discharged Performed By: #### L 501.4021, L500.2500, L501.9520, L100.0100 #### [facility] [address] [place], [address] GLU Normal 70-99 [facility] Comment on above: Result Comment: Canc elled via OM: Order cancelled - Patient discharged Performed By: #### L 501.4021, L500.2500, L501.9520, L100.0100 #### [facility] [address] [place], [address] Potassium Normal 3.3-5.1 [facility] Comment on above: Result Comment: Canc elled via OM: Order cancelled - Patient discharged Performed By: #### L 501.4021, L500.2500, L501.9520, L100.0100 #### [facility] [address] [place], [address] T BILI Normal 0.00-1.30 [facility] Comment on above: Result Comment: Canc elled via OM: Order cancelled - Patient discharged Performed By: #### L 501.4021, L500.2500, L501.9520, L100.0100 #### [facility] [address] [place], [address] T PROT Normal 5.9-8.4 [facility] Comment on above: Result Comment: Canc elled via OM: Order cancelled - Patient discharged Performed By: #### L 501.4021, L500.2500, L501.9520, L100.0100 #### [facility] [address] [place], [address] Comprehensive Metabolic Profil Normal 133-145 [facility] Comment on above: Result Comment: Canc elled via OM: Order cancelled - Patient discharged Performed By: #### L 501.4021, L500.2500, L501.9520, L100.0100 #### [facility] [address] [place], [address] Culture, Blood (WB)on 2024 CUB Blood cultures x2, from two different sites GRAM STAIN= GRAM POSITIVE COCCI IN CLUSTERS Culture, Blood (WB) [facility] Arturo Weeks. REPORT READ BACK BY SAME. Culture, Blood (WB) Possible skin contamination, further Identification and sensitivity will be performed only by physician's request. Coag Negative Staph Amount Growth Growth Normal [facility] Comment on above: Performed By: #### L 501.4021, L500.2500, L501.9520, L100.0100 #### [facility] [address] [place], [address] CUB Blood cultures x2, from two different sites No growth in 5 days. Normal [facility] Comment on above: Performed By: #### L 501.080 #### [facility] [address] [place], [address] CBC W/Diff, Automatedon 07-0 Absolute Neut Normal 2.0-7.7 [facility] Comment on above: Result Comment: Canc elled via OM: Order cancelled - Patient discharged Performed By: #### L 500.4050, L100.0100 ####[facility] [address] [place], [address] HCT Normal 37-47 [facility] Comment on above: Result Comment: Canc elled via OM: Order cancelled - Patient discharged Performed By: #### L 500.4050, L100.0100 ####[facility] [address] [place], [address] HGB Normal 12.0-15.0 [facility] Comment on above: Result Comment: Canc elled via OM: Order cancelled - Patient discharged Performed By: #### L 500.4050, L100.0100 ####[facility] [address] [place], [address] MCH Normal 27.0-32.0 [facility] Comment on above: Result Comment: Canc elled via OM: Order cancelled - Patient discharged Performed By: #### L 500.4050, L100.0100 ####[facility] [address] [place], [address] MCHC Normal 32-36 [facility] Comment on above: Result Comment: Canc elled via OM: Order cancelled - Patient discharged Performed By: #### L 500.4050, L100.0100 ####[facility] [address] [place], [address] MCV Normal 81-99 [facility] Comment on above: Result Comment: Canc elled via OM: Order cancelled - Patient discharged Performed By: #### L 500.4050, L100.0100 ####[facility] [address] [place], [address] NEUT% Normal 47-70 [facility] Comment on above: Result Comment: Canc elled via OM: Order cancelled - Patient discharged Performed By: #### L 500.4050, L100.0100 ####[facility] [address] [place], [address] PLT Normal 150-450 [facility] Comment on above: Result Comment: Canc elled via OM: Order cancelled - Patient discharged Performed By: #### L 500.4050, L100.0100 ####[facility] [address] [place], [address] RBC Normal 4.2-5.4 [facility] Comment on above: Result Comment: Canc elled via OM: Order cancelled - Patient discharged Performed By: #### L 500.4050, L100.0100 ####[facility] [address] [place], [address] RDW CV Normal 11.6-14.6 [facility] Comment on above: Result Comment: Canc elled via OM: Order cancelled - Patient discharged Performed By: #### L 500.4050, L100.0100 ####[facility] [address] [place], [address] RDW SD Normal 35.1-43.9 [facility] Comment on above: Result Comment: Canc elled via OM: Order cancelled - Patient discharged Performed By: #### L 500.4050, L100.0100 ####[facility] [address] [place], [address] WBC Normal 4.4-11.0 [facility] Comment on above: Result Comment: Canc elled via OM: Order cancelled - Patient discharged Performed By: #### L 500.4050, L100.0100 ####[facility] [address] [place], [address] Comprehensive Metabolic Prof ilon 03-07-2025 ALB Normal 3.4-4.8 [facility] Comment on above: Result Comment: Canc elled via OM: Order cancelled - Patient discharged Performed By: #### L 500.4050, L100.0100 ####[facility] [address] [place], [address] ALK PHOS Normal 35-104 [facility] Comment on above: Result Comment: Canc elled via OM: Order cancelled - Patient discharged Performed By: #### L 500.4050, L100.0100 ####[facility] [address] [place], [address] ALT Normal <=34 [facility] Comment on above: Result Comment: Canc elled via OM: Order cancelled - Patient discharged Performed By: #### L 500.4050, L100.0100 ####[facility] [address] [place], [address] AST Normal <=31 [facility] Comment on above: Result Comment: Canc elled via OM: Order cancelled - Patient discharged Performed By: #### L 500.4050, L100.0100 ####[facility] [address] [place], [address] BUN Normal 4-19 [facility] Comment on above: Result Comment: Canc elled via OM: Order cancelled - Patient discharged Performed By: #### L 500.4050, L100.0100 ####[facility] [address] [place], [address] BUN/CRE Normal 10-20 [facility] Comment on above: Result Comment: Canc elled via OM: Order cancelled - Patient discharged Performed By: #### L 500.4050, L100.0100 ####[facility] [address] [place], [address] Calcium Normal 7.6-11.0 [facility] Comment on above: Result Comment: Canc elled via OM: Order cancelled - Patient discharged Performed By: #### L 500.4050, L100.0100 ####[facility] [address] [place], [address] CL Normal 98-108 [facility] Comment on above: Result Comment: Canc elled via OM: Order cancelled - Patient discharged Performed By: #### L 500.4050, L100.0100 ####[facility] [address] [place], [address] CO2 Normal 21.0-32.0 [facility] Comment on above: Result Comment: Canc elled via OM: Order cancelled - Patient discharged Performed By: #### L 500.4050, L100.0100 ####[facility] [address] [place], [address] CREAT,SERUM Normal 0.70-1.20 [facility] Comment on above: Result Comment: Canc elled via OM: Order cancelled - Patient discharged Performed By: #### L 500.4050, L100.0100 ####[facility] [address] [place], [address] eGFR Normal >60 [facility] Comment on above: Result Comment: Canc elled via OM: Order cancelled - Patient discharged Performed By: #### L 500.4050, L100.0100 ####[facility] [address] [place], [address] GAP Normal 5-15 [facility] Comment on above: Result Comment: Canc elled via OM: Order cancelled - Patient discharged Performed By: #### L 500.4050, L100.0100 ####[facility] [address] [place], [address] GLU Normal 70-99 [facility] Comment on above: Result Comment: Canc elled via OM: Order cancelled - Patient discharged Performed By: #### L 500.4050, L100.0100 ####[facility] [address] [place], [address] Potassium Normal 3.3-5.1 [facility] Comment on above: Result Comment: Canc elled via OM: Order cancelled - Patient discharged Performed By: #### L 500.4050, L100.0100 ####[facility] [address] [place], [address] T BILI Normal 0.00-1.30 [facility] Comment on above: Result Comment: Canc elled via OM: Order cancelled - Patient discharged Performed By: #### L 500.4050, L100.0100 ####[facility] [address] [place], [address] T PROT Normal 5.9-8.4 [facility] Comment on above: Result Comment: Canc elled via OM: Order cancelled - Patient discharged Performed By: #### L 500.4050, L100.0100 ####[facility] [address] [place], [address] Comprehensive Metabolic Profil Normal 133-145 [facility] Comment on above: Result Comment: Canc elled via OM: Order cancelled - Patient discharged Performed By: #### L 500.4050, L100.0100 ####[facility] [address] [place], [address] CBC W/Diff, Automatedon 07-0 -2024 Absolute Neut Normal 2.0-7.7 [facility] Comment on above: Result Comment: Canc elled via OM: Order cancelled - Patient discharged Performed By: #### L 501.4021, L500.2500, L501.9520, L100.0100 #### [facility] [address] [place], [address] Result Comment: Canc elled via OM: MD Ordered HCT Normal 37-47 [facility] Comment on above: Result Comment: Canc elled via OM: Order cancelled - Patient discharged Performed By: #### L 501.4021, L500.2500, L501.9520, L100.0100 #### [facility] [address] [place], [address] Result Comment: Canc elled via OM: MD Ordered HGB Normal 12.0-15.0 [facility] Comment on above: Result Comment: Canc elled via OM: Order cancelled - Patient discharged Performed By: #### L 501.4021, L500.2500, L501.9520, L100.0100 #### [facility] [address] [place], [address] Result Comment: Canc elled via OM: MD Ordered MCH Normal 27.0-32.0 [facility] Comment on above: Result Comment: Canc elled via OM: Order cancelled - Patient discharged Performed By: #### L 501.4021, L500.2500, L501.9520, L100.0100 #### [facility] [address] [place], [address] Result Comment: Canc elled via OM: MD Ordered MCHC Normal 32-36 [facility] Comment on above: Result Comment: Canc elled via OM: Order cancelled - Patient discharged Performed By: #### L 501.4021, L500.2500, L501.9520, L100.0100 #### [facility] [address] [place], [address] Result Comment: Canc elled via OM: MD Ordered MCV Normal 81-99 [facility] Comment on above: Result Comment: Canc elled via OM: Order cancelled - Patient discharged Performed By: #### L 501.4021, L500.2500, L501.9520, L100.0100 #### [facility] [address] [place], [address] Result Comment: Canc elled via OM: MD Ordered NEUT% Normal 47-70 [facility] Comment on above: Result Comment: Canc elled via OM: Order cancelled - Patient discharged Performed By: #### L 501.4021, L500.2500, L501.9520, L100.0100 #### [facility] [address] [place], [address] Result Comment: Canc elled via OM: MD Ordered PLT Normal 150-450 [facility] Comment on above: Result Comment: Canc elled via OM: Order cancelled - Patient discharged Performed By: #### L 501.4021, L500.2500, L501.9520, L100.0100 #### [facility] [address] [place], [address] Result Comment: Canc elled via OM: MD Ordered RBC Normal 4.2-5.4 [facility] Comment on above: Result Comment: Canc elled via OM: Order cancelled - Patient discharged Performed By: #### L 501.4021, L500.2500, L501.9520, L100.0100 #### [facility] [address] [place], [address] Result Comment: Canc elled via OM: MD Ordered RDW CV Normal 11.6-14.6 [facility] Comment on above: Result Comment: Canc elled via OM: Order cancelled - Patient discharged Performed By: #### L 501.4021, L500.2500, L501.9520, L100.0100 #### [facility] [address] [place], [address] Result Comment: Canc elled via OM: MD Ordered RDW SD Normal 35.1-43.9 [facility] Comment on above: Result Comment: Canc elled via OM: Order cancelled - Patient discharged Performed By: #### L 501.4021, L500.2500, L501.9520, L100.0100 #### [facility] [address] [place], [address] Result Comment: Canc elled via OM: MD Ordered WBC Normal 4.4-11.0 [facility] Comment on above: Result Comment: Canc elled via OM: Order cancelled - Patient discharged Performed By: #### L 501.4021, L500.2500, L501.9520, L100.0100 #### [facility] [address] [place], [address] Result Comment: Canc elled via OM: MD Ordered Comprehensive Metabolic Prof ilon 03-06-2025 ALB Normal 3.4-4.8 [facility] Comment on above: Result Comment: Canc elled via OM: Order cancelled - Patient discharged Performed By: #### L 501.4021, L500.2500, L501.9520, L100.0100 #### [facility] [address] [place], [address] ALK PHOS Normal 35-104 [facility] Comment on above: Result Comment: Canc elled via OM: Order cancelled - Patient discharged Performed By: #### L 501.4021, L500.2500, L501.9520, L100.0100 #### [facility] [address] [place], [address] ALT Normal <=34 [facility] Comment on above: Result Comment: Canc elled via OM: Order cancelled - Patient discharged Performed By: #### L 501.4021, L500.2500, L501.9520, L100.0100 #### [facility] [address] [place], [address] AST Normal <=31 [facility] Comment on above: Result Comment: Canc elled via OM: Order cancelled - Patient discharged Performed By: #### L 501.4021, L500.2500, L501.9520, L100.0100 #### [facility] [address] [place], [address] BUN Normal 4-19 [facility] Comment on above: Result Comment: Canc elled via OM: Order cancelled - Patient discharged Performed By: #### L 501.4021, L500.2500, L501.9520, L100.0100 #### [facility] [address] [place], [address] Result Comment: Canc elled via OM: MD Ordered BUN/CRE Normal 10-20 [facility] Comment on above: Result Comment: Canc elled via OM: Order cancelled - Patient discharged Performed By: #### L 501.4021, L500.2500, L501.9520, L100.0100 #### [facility] [address] [place], [address] Result Comment: Canc elled via OM: MD Ordered Calcium Normal 7.6-11.0 [facility] Comment on above: Result Comment: Canc elled via OM: Order cancelled - Patient discharged Performed By: #### L 501.4021, L500.2500, L501.9520, L100.0100 #### [facility] [address] [place], [address] Result Comment: Canc elled via OM: MD Ordered CL Normal 98-108 [facility] Comment on above: Result Comment: Canc elled via OM: Order cancelled - Patient discharged Performed By: #### L 501.4021, L500.2500, L501.9520, L100.0100 #### [facility] [address] [place], [address] Result Comment: Canc elled via OM: MD Ordered CO2 Normal 21.0-32.0 [facility] Comment on above: Result Comment: Canc elled via OM: Order cancelled - Patient discharged Performed By: #### L 501.4021, L500.2500, L501.9520, L100.0100 #### [facility] [address] [place], [address] Result Comment: Canc elled via OM: MD Ordered CREAT,SERUM Normal 0.70-1.20 [facility] Comment on above: Result Comment: Canc elled via OM: Order cancelled - Patient discharged Performed By: #### L 501.4021, L500.2500, L501.9520, L100.0100 #### [facility] [address] [place], [address] Result Comment: Canc elled via OM: MD Ordered eGFR Normal >60 [facility] Comment on above: Result Comment: Canc elled via OM: Order cancelled - Patient discharged Performed By: #### L 501.4021, L500.2500, L501.9520, L100.0100 #### [facility] [address] [place], [address] Result Comment: Canc elled via OM: MD Ordered GAP Normal 5-15 [facility] Comment on above: Result Comment: Canc elled via OM: Order cancelled - Patient discharged Performed By: #### L 501.4021, L500.2500, L501.9520, L100.0100 #### [facility] [address] [place], [address] Result Comment: Canc elled via OM: MD Ordered GLU Normal 70-99 [facility] Comment on above: Result Comment: Canc elled via OM: Order cancelled - Patient discharged Performed By: #### L 501.4021, L500.2500, L501.9520, L100.0100 #### [facility] [address] [place], [address] Result Comment: Canc elled via OM: MD Ordered Potassium Normal 3.3-5.1 [facility] Comment on above: Result Comment: Canc elled via OM: Order cancelled - Patient discharged Performed By: #### L 501.4021, L500.2500, L501.9520, L100.0100 #### [facility] [address] [place], [address] Result Comment: Canc elled via OM: MD Ordered T BILI Normal 0.00-1.30 [facility] Comment on above: Result Comment: Canc elled via OM: Order cancelled - Patient discharged Performed By: #### L 501.4021, L500.2500, L501.9520, L100.0100 #### [facility] [address] [place], [address] T PROT Normal 5.9-8.4 [facility] Comment on above: Result Comment: Canc elled via OM: Order cancelled - Patient discharged Performed By: #### L 501.4021, L500.2500, L501.9520, L100.0100 #### [facility] [address] [place], [address] Comprehensive Metabolic Profil Normal 133-145 [facility] Comment on above: Result Comment: Canc elled via OM: Order cancelled - Patient discharged Performed By: #### L 501.4021, L500.2500, L501.9520, L100.0100 #### [facility] [address] [place], [address] Result Comment: Alix curryed via OM: Ordered Absolute lymphocyte countOrd ered By: Benny Mejia on 03-05-2025 Lymphocytes Auto (Unsp spec) [#/Vol] 1.59 10*3/uL 0.83-4.51 [facility] Absolute neutrophil countOrd ered By: Benny Mejia on 03-05-2025 Neutrophils (Bld) [#/Vol] 3.6 10*3/uL 2.0-7.7 [facility] Anion gap in Serum or Plasma Ordered By: Benny Mejia on 03-05-2025 Anion gap [Moles/Vol] 9 mmol/L 5-15 [facility] Automated lymphocyte count a s percentage of total leukocytesOrdered By: Benny Mejia on 03-05-2025 Lymphocytes/100 WBC Auto (Unsp spec) 26.9 % 19-41 [facility] BUN/creatinine ratioOrdered By: Benny Mejia on 03-05-2025 Urea nitrogen/Creatinine [Mass ratio] 10.9 mg/mg 10- [facility] Basic Metabolic Profile (BMP )on 03-05-2025 BUN/CRE 10.9 RATIO Normal -20 [facility] Comment on above: Performed By: #### L 500.2500, L501.9520, L506.0400 ####[facility] [address] [place], [address] Calcium [Mass/Vol] 8.2 mg/dL Normal 7.6-11.0 [facility] Comment on above: Performed By: #### L 500.2500, L501.9520, L506.0400 ####[facility] [address] [place], [address] Chloride [Moles/Vol] 107 mmol/L Normal 98-108 [facility] Comment on above: Performed By: #### L 500.2500, L501.9520, L506.0400 ####[facility] [address] [place], [address] CO2 [Moles/Vol] 22.4 mmol/L Normal 21.0-32.0 [facility] Comment on above: Performed By: #### L 500.2500, L501.9520, L506.0400 ####[facility] [address] [place], [address] Creatinine [Mass/Vol] 0.51 mg/dL Low 0.70-1.20 [facility] Comment on above: Result Comment: QC O K Performed By: #### L 500.2500, L501.9520, L506.0400 ####[facility] [address] [place], [address] ECRCL 146.22 ml/min Normal 50-250 [facility] Comment on above: Performed By: #### L 500.2500, L501.9520, L506.0400 ####[facility] [address] [place], [address] GAP 9 Normal 5-15 [facility] Comment on above: Performed By: #### L 500.2500, L501.9520, L506.0400 ####[facility] [address] [place], [address] GFR/1.73 sq M.predicted among non-blacks MDRD (S/P/Bld) [Vol rate/Area] 106 mL/min/{1.73_m2} Normal >60 [facility] Comment on above: Result Comment: mL/m in/1.73m2 CKD-EPI Creatinine Equation (2020) Performed By: #### L 500.2500, L501.9520, L506.0400 ####[facility] [address] [place], [address] Glucose [Mass/Vol] 123 mg/dL High 70-99 [facility] Comment on above: Performed By: #### L 500.2500, L501.9520, L506.0400 ####[facility] [address] [place], [address] Potassium [Moles/Vol] 3.7 mmol/L Normal 3.3-5.1 [facility] Comment on above: Performed By: #### L 500.2500, L501.9520, L506.0400 ####[facility] [address] [place], [address] Sodium [Moles/Vol] 139 mmol/L Normal 133-145 [facility] Comment on above: Performed By: #### L 500.2500, L501.9520, L506.0400 ####[facility] [address] [place], [address] Urea nitrogen [Mass/Vol] 6 mg/dL Normal 4-19 [facility] Comment on above: Performed By: #### L 500.2500, L501.9520, L506.0400 ####[facility] [address] [place], [address] Basophil percentageOrdered B y: Benny Mejia on 03-05-2025 Basophils/100 WBC (Bld) 0.7 % 0-1 [facility] Blood polychromasia detectio n by light microscopyOrdered By: Benny Mejia on 03-05-2025 Polychromasia LM Ql (Bld) 1+ [facility] CBC W/Diff, Automatedon Anisocytosis Ql (Bld) 1+ Normal [facility] Comment on above: Performed By: #### L 501.4021, L500.2500, L501.9520, L100.0100 #### [facility] [address] [place], [address] DOHLE BODIES 1+ Normal [facility] Comment on above: Performed By: #### L 501.4021, L500.2500, L501.9520, L100.0100 #### [facility] [address] [place], [address] OVALOCYTE 1+ Normal [facility] Comment on above: Performed By: #### L 501.4021, L500.2500, L501.9520, L100.0100 #### [facility] [address] [place], [address] PLT EST SLT DEC Normal ADEQ [facility] Comment on above: Performed By: #### L 501.4021, L500.2500, L501.9520, L100.0100 #### [facility] [address] [place], [address] POLYCHROMASIA 1+ Normal [facility] Comment on above: Performed By: #### L 501.4021, L500.2500, L501.9520, L100.0100 #### [facility] [address] [place], [address] Carbon dioxide, total [Moles /volume] in Central venous bloodOrdered By: Benny Mejia on 03-05-2025 CO2 [Moles/Vol] 22.4 mmol/L 21.0-32.0 [facility] Chloride assayOrdered By: Armani Mejia on 03-05-2025 Chloride [Moles/Vol] 107 mmol/L 98-108 [facility] Consultation - Infectious Dx on 03-05-2025 Consultation - Infectious Dx [facility] Medical Records Department [address] [place] [address] Consultation - Infectious Dx 03/05/25 1530 MR#: [id number] Acct: [id number] Name: BOAZ GOLDSTEIN Rep #: [id number] : 1965 59 From: Clara Vega MD PCP: Dr. Hu Hairston MD Status:ADM IN Location: [facility]3 [id number] Assessment Plan Assessment/Plan (1) Abscess: PLAN: I D done, cx pending, on vanc. H/o hives with PCN and keflex. Plan at this point would be 5- 7 days po cefdinir 300mg bid at discharge. Will follow, thank you (2) Cellulitis: QUALIFIERS: Site of cellulitis: trunk Site of cellulitis of trunk: unspecified site Qualified Code(s): L03.319 - Cellulitis of trunk, unspecified HPI Consult Data Date of Consult: 03/05/25 HPI Narrative Reason for Consultation: abscess HPI Narrative: BOAZ GOLDSTEIN, is a 59 F who presented 03/03 with two days of L flank redness, pain, and fever. No known inciting event, thought it was a spider bite. Came to ED, admitted on vanc after receiving clinda. Taken for I D, feeling better. Full ROS performed and neg except as noted above. [facility] Medical History Alcohol use Abscessed tooth Post-menopausal [...] mg PO DAILY #90 tabs 05/07/22 Rx atorvastatin 10 mg tablet 10 mg PO QHS #90 tabs 05/07/22 Rx albuterol sulfate 90 mcg/actuation 2 puff inhalation Q4H PRN 02/22/24 History aerosol inhaler shortness of breath or wheezing aspirin 81 mg chewable tablet 1 tab PO DAILY 03/03/25 Unknown Hi story levothyroxine 137 mcg tablet 137 mcg PO DAILY 03/04/25 Unknown History Allergy/AdvReac Type Severity Reaction Status Date / Time cephalexin monohydrate (From Allergy Hives Verified 03/03/25 21:44 Keflex) latex Allergy Rash Verified 03/03/25 21:44 Penicillins (PCN) Allergy Hives Verified 03/03/25 21:44 Family History Grandfather Kidney disease Heart disease Colon cancer Sister Lung cancer Seizures Mother Cancer Diabetes Daughter Hypertension Thyroid disorder Surgical History Hx of colonoscopy History of cholecystectomy History of delivery Social History Smoking Status: Former smoker second hand exposure: Yes quit status: not considering quitting alcohol intake: never substance use type: does not use caffeine: Yes what type of physical activity do you participate in: none seatbelt use: always do you feel safe at home: Yes additional social history: Employed Self reliance single Physical Exam Const alert, oriented x3 and no apparent distress General Appearance: cooperative HEENT normocephalic and head/scalp atraumatic Eyes PERRL and EOMs intact bilaterally Neck supple and No nodes Resp normal air movement and clear to auscultation bilaterally Cardio regular rate and regular rhythm GI soft to palpation, non-tender and non-distended Extremity General Extremity: Negative for edema Skin Skin Narrative: L flank dressing, mild redness Neuro CN's II-XII intact bilaterally Lab / Micro Data Attestation: I reviewed the patient's lab results. 03/05/25 04:29 03/05/25 04:29 Labs: Laboratory Results - last 24 hr 03/04/25 22:27: Vancomycin Trough 13.4 03/05/25 04:29: WBC 5.9, RBC 3.74 L, Hgb 11.7 L, Hct 35.2 L, MCV 94.1, MCH 31.3, MCHC 33.2, RDW Std Deviation 52.0 H, RDW Coeff of Vinicio 14.9 H, Plt Count 119 L, MPV 12.0, Immature Gran % (Auto) 0.500, Neut % (Auto) 61.1, Lymph % (Auto) 26.9, Wolfe % (Auto) 7.6, Eos % (Auto) 3.2, Baso % (Auto) 0.7, Absolute Neuts (auto) 3.6, Absolute Lymphs (auto) 1.59, Nucleated RBC % 0, Dohle Bodies 1+, Platelet Estimate SLT DEC, Polychromasia 1+, Anisocytosis 1+, Ovalocytes 1+, Sodium 139, Potassium 3.7, Chloride 107, Carbon Dioxide 22.4, Anion Gap 9, BUN 6, Creatinine 0.51 L, Estim Creat Clear Calc 146.22, Est GFR (MDRD) Non-Af 106, BUN/Creatinine Ratio 10.9, Glucose 123 H, Calcium 8.2, TSH 10.400 H, Free T4 1.10 Micro: Microbiology 03/04/25 14:20 Incision/Surg (more content not included)... Normal [facility] Dohle bodies detectionOrdere d By: Benny Mejia on 03-05-2025 Dohle body LM Ql (Bld) 1+ [facility] Electrocardiogram reportOrde red By: Nish Sterling on 03-05-2025 EKG study [facility] [address] [place] [address] 12 Lead EKG 03/03/25 2243 MR#: [id number] Acct: [id number] Name: BOAZ GOLDSTEIN Rep #:[id number] : 1965 59 From: Nish Sterling MD Attending Dr: Dr. Patti Cornejo MD Status: ADM IN Ordering Dr: Emiliano Cisse DO Date: 0 03/03/25 [place] [facility] Sex: F C Admitted: 03/04/25 Test Reason : BACK Blood Pressure : */* mmHG Vent. Rate : 100 BPM Atrial Rate : 100 BPM P-R Int : 190 ms QRS Dur : 90 ms QT Int : 326 ms P-R-T Axes : 40 14 47 degrees QTcB Int : 420 ms Normal sinus rhythm Normal ECG Confirmed by NISH STERLING MD ([id number]), editor in chief newspaper RENE CUEVAS ([id number]) on 03/05/2025 10:58:58 AM Referred By: Confirmed By: NISH STERLING MD 03/05/25 1059 Date _ Nish Sterling MD CC: Dr. Patti Cornejo MD; Dr. Hu Hairston MD; Dr. Emiliano Cisse, DO ~ Signed [facility] Other Phone: Eosinophil percentageOrdered By: Benny Mejia on 03-05-2025 Eosinophils/100 WBC (Bld) 3.2 % 0-5 [facility] Erythrocyte distribution wid th ratioOrdered By: Benny Mejia on 03-05-2025 Erythrocyte distribution width (RBC) [Ratio] 14.9 % High 11.6-14.6 [facility] Erythrocyte distribution wid th standard deviationOrdered By: Bennybulmaro Mejia on 03-05-2025 Erythrocyte distribution width (RBC) [Ratio] 52.0 fl High 35.1-43.9 [facility] Glomerular filtration rate ( GFR) estimation/1.73 sq m using serum, plasma, or whole bOrdered By: Benny Mejia on 03-05-2025 GFR/1.73 sq M.predicted among non-blacks MDRD (S/P/Bld) [Vol rate/Area] 106 mL/min/{1.73_m2} >60 [facility] Comment on above: mL/min/1.73m2 CKD-EP I Creatinine Equation (2020) Gram Stainon 03-05-2025 GS List Antibiotics Last 48 Hours? vancomycin- clindamycin Gram Stain No organisms seen No Epithelial cells Normal [facility] Comment on above: Performed By: #### M 100.3000, M100.2000, M100.4001 ####[facility] [address] [place], [place], [id number] GS List Antibiotics Last 48 Hours? yes List Antibiotics to be Started? vancomyacin Gram Stain No organisms seen No Epithelial cells Normal [facility] Comment on above: Performed By: #### L 501.4021, L500.2500, L501.9520, L100.0100 #### [facility] [address] [place], [address] Hematocrit Auto (Bld) [Volum e fraction]Ordered By: Benny Mejia on 03-05-2025 Hematocrit (Bld) [Volume fraction] 35.2 % Low 37-47 [facility] Hemoglobin measurementOrdere d By: Benny Mejia on 03-05-2025 Hemoglobin (Bld) [Mass/Vol] 11.7 g/dL Low 12.0-15.0 [facility] Immature granulocytes/100 WB C Auto (Bld)Ordered By: Benny Mejia on 03-05-2025 Immature granulocytes/100 WBC (Bld) 0.500 % 0.0-0.9 [facility] Comment on above: IG% - Immature Granu locytes (promyelocytes, myelocytes and metamyelocytes) > 1% indicates that a LEFT SHIFT is Present. Laboratory - Hematology and Cell countsOrdered By: Benny Mejia on 03-05-2025 Anisocytosis Ql (Bld) 1+ [facility] MCV (mean corpuscular volume ) determinationOrdered By: Benny Mejia on 03-05-2025 MCV (RBC) [Entitic vol] 94.1 fL 81-99 [facility] Mean corpuscular hemoglobin (MCH) determinationOrdered By: Benny Mejia on 03-05-2025 MCH (RBC) [Entitic mass] 31.3 pg 27.0-32.0 [facility] Mean corpuscular hemoglobin concentration (MCHC) determinationOrdered By: Benny Mejia on 03-05-2025 MCHC (RBC) [Mass/Vol] 33.2 g/dL 32-36 [facility] Mean platelet volume determi nationOrdered By: Benny Mejia on 03-05-2025 Platelet mean volume (Bld) [Entitic vol] 12.0 fL 6.2-12.0 [facility] Monocyte percentageOrdered B y: Benny Mejia on 03-05-2025 Monocytes/100 WBC (Bld) 7.6 % 0-10 [facility] Neutrophil percentageOrdered By: Benny Mejia on 03-05-2025 Neutrophils/100 WBC (Bld) 61.1 % 47-70 [facility] Nucleated red blood cell per centageOrdered By: Benny Mejia on 03-05-2025 Nucleated RBC/100 WBC (Bld) [Ratio] 0 % 0-5 [facility] Ovalocyte detectionOrdered B y: Benny Mejia on 03-05-2025 Ovalocytes LM Ql (Bld) 1+ [facility] Platelet countOrdered By: Armani Mejia on 03-05-2025 Platelets (Bld) [#/Vol] 119 10*3/uL Low 150-450 [facility] Platelet estimateOrdered By: Benny Mejia on 03-05-2025 Platelets LM Ql (Bld) SLT DEC ADEQ [facility] Potassium measurement (mass/ volume)Ordered By: Benny Mejia on 03-05-2025 Potassium (Unsp spec) [Mass/Vol] 3.7 mmol/L 3.3-5.1 [facility] RBC Auto (Bld) [#/Vol]Ordere d By: Benny Mejia on 03-05-2025 RBC (Bld) [#/Vol] 3.74 10*6/uL Low 4.2-5.4 [facility] Serum creatinine measurement (mass/volume)Ordered By: Benny Mejia on 03-05-2025 Creatinine [Mass/Vol] 0.51 mg/dL Low 0.70-1.20 [facility] Comment on above: OK Serum glucose measurement (m ass/volume)Ordered By: Benny Mejia on 03-05-2025 Glucose [Mass/Vol] 123 mg/dL High 70-99 [facility] Serum or plasma calcium gómez urement (mass/volume)Ordered By: Benny Mejia on 03-05-2025 Calcium [Mass/Vol] 8.2 mg/dL 7.6-11.0 [facility] Serum or plasma urea nitroge n measurement (mass/volume)Ordered By: Benny Mejia on 03-05-2025 Urea nitrogen [Mass/Vol] 6 mg/dL 4-19 [facility] Sodium levelOrdered By: Yadi Mejia on 03-05-2025 Sodium [Moles/Vol] 139 mmol/L 133-145 [facility] T4 Free Directon 03-05-2025 T4 FREE DIRECT 1.10 ng/dL Normal 0.76-1.46 [facility] Comment on above: Performed By: #### L 500.2500, L501.9520, L506.0400 ####[facility] [address] [place], [address] T4 freeOrdered By: Benny dhaliwal on 03-05-2025 Free T4 [Mass/Vol] 1.10 ng/dL 0.76-1.46 [facility] TSH DL <= 0.005 mIU/L QnOrde red By: Benny Mejia on 03-05-2025 TSH Qn 10.400 uIU/mL High 0.300-4.200 [facility] Thyroid Stim Hormone (TSH)on 03-05-2025 TSH 10.400 uIU/mL High 0.300-4.200 [facility] Comment on above: Performed By: #### L 500.2500, L501.9520, L506.0400 ####[facility] [address] [place], [address] White blood cell (WBC) count Ordered By: Benny Mejia on 03-05-2025 WBC (Bld) [#/Vol] 5.9 10*3/uL 4.4-11.0 [facility] Wound Cultureon 03-05-2025 WC List Antibiotics Last 48 Hours? vancomycin- clindamycin No growth aerobically. Normal [facility] Comment on above: Performed By: #### M 100.3000, M100.2000, M100.4001 ####[facility] [address] [place], [address] WC List Antibiotics Last 48 Hours? yes List Antibiotics to be Started? vancomyacin No growth aerobically. Normal [facility] Comment on above: Performed By: #### L 501.4021, L500.2500, L501.9520, L100.0100 #### [facility] [address] [place], [address] WC No growth aerobically. Normal [facility] Comment on above: Performed By: #### L 501.080 #### [facility] [address] [place], [address] Anaerobic cultureOrdered By: Surendra De Luna on 03-04-2025 Bacteria identified Anaer cx Nom (Unsp spec) No growth in 5 days. [facility] Anaerobic cultureOrdered By: Benny Mejia on 03-04-2025 Bacteria identified Anaer cx Nom (Unsp spec) No growth in 5 days. [facility] BC GPC IDon 03-04-2025 BC GPC ID Enterococcus sp. Not Detected Listeria spp Not Detected NAAT METHOD Testing was performed using nucleic acid amplification Staphylococcus sp. A DETECTED A Streptococcus spp. Not Detected mecA Not Detected Donny/vanB Not Detected Coag Negative Staph Normal [facility] Comment on above: Performed By: #### L 501.4021, L500.2500, L501.9520, L100.0100 #### [facility] [address] [place], [address] Basic Metabolic Profile (BMP )on 03-04-2025 BUN/CRE 11.3 RATIO Normal 10-20 [facility] Comment on above: Performed By: #### L 500.2500, L501.2300, L501.5200, L100.0100 ####[facility] [address] [place], [address] Calcium [Mass/Vol] 7.9 mg/dL Normal 7.6-11.0 [facility] Comment on above: Performed By: #### L 500.2500, L501.2300, L501.5200, L100.0100 ####[facility] [address] [place], [address] Chloride [Moles/Vol] 109 mmol/L High 98-108 [facility] Comment on above: Performed By: #### L 500.2500, L501.2300, L501.5200, L100.0100 ####[facility] [address] [place], [address] CO2 [Moles/Vol] 20.0 mmol/L Low 21.0-32.0 [facility] Comment on above: Performed By: #### L 500.2500, L501.2300, L501.5200, L100.0100 ####[facility] [address] [place], [address] Creatinine [Mass/Vol] 0.56 mg/dL Low 0.70-1.20 [facility] Comment on above: Performed By: #### L 500.2500, L501.2300, L501.5200, L100.0100 ####[facility] [address] [place], [address] ECRCL 133.17 ml/min Normal 50-250 [facility] Comment on above: Performed By: #### L 500.2500, L501.2300, L501.5200, L100.0100 ####[facility] [address] [place], [address] GAP 11 Normal 5-15 [facility] Comment on above: Performed By: #### L 500.2500, L501.2300, L501.5200, L100.0100 ####[facility] [address] [place], [address] GFR/1.73 sq M.predicted among non-blacks MDRD (S/P/Bld) [Vol rate/Area] 104 mL/min/{1.73_m2} Normal >60 [facility] Comment on above: Result Comment: mL/m in/1.73m2 CKD-EPI Creatinine Equation (2020) Performed By: #### L 500.2500, L501.2300, L501.5200, L100.0100 ####[facility] [address] [place], [address] Glucose [Mass/Vol] 166 mg/dL High 70-99 [facility] Comment on above: Performed By: #### L 500.2500, L501.2300, L501.5200, L100.0100 ####[facility] [address] [place], [address] Potassium [Moles/Vol] 3.9 mmol/L Normal 3.3-5.1 [facility] Comment on above: Performed By: #### L 500.2500, L501.2300, L501.5200, L100.0100 ####[facility] [address] [place], [address] Sodium [Moles/Vol] 140 mmol/L Normal 133-145 [facility] Comment on above: Performed By: #### L 500.2500, L501.2300, L501.5200, L100.0100 ####[facility] [address] [place], [address] Urea nitrogen [Mass/Vol] 6 mg/dL Normal 4-19 [facility] Comment on above: Performed By: #### L 500.2500, L501.2300, L501.5200, L100.0100 ####[facility] [address] [place], [address] CBC W/Diff, Automatedon 07-0 6-2025 Absolute Lymph 1.06 X10 3/uL Normal 0.83-4.51 [facility] Comment on above: Performed By: #### L 500.2500, L501.2300, L501.5200, L100.0100 ####[facility] [address] [place], [address] Absolute Neut 2.6 X10 3/uL Normal 2.0-7.7 [facility] Comment on above: Performed By: #### L 500.2500, L501.2300, L501.5200, L100.0100 ####[facility] [address] [place], [address] Basophils/100 WBC (Bld) 0.7 % Normal 0-1 [facility] Comment on above: Performed By: #### L 500.2500, L501.2300, L501.5200, L100.0100 ####[facility] [address] [place], [address] Eosinophils/100 WBC (Bld) 1.7 % Normal 0-5 [facility] Comment on above: Performed By: #### L 500.2500, L501.2300, L501.5200, L100.0100 ####[facility] [address] [place], [address] Erythrocyte distribution width (RBC) [Ratio] 14.8 % High 11.6-14.6 [facility] Comment on above: Performed By: #### L 500.2500, L501.2300, L501.5200, L100.0100 ####[facility] [address] [place], [address] Hematocrit (Bld) [Volume fraction] 37.1 % Normal 37-47 [facility] Comment on above: Performed By: #### L 500.2500, L501.2300, L501.5200, L100.0100 ####[facility] [address] [place], [address] Hemoglobin (Bld) [Mass/Vol] 12.5 g/dL Normal 12.0-15.0 [facility] Comment on above: Performed By: #### L 500.2500, L501.2300, L501.5200, L100.0100 ####[facility] [address] [place], [address] IG% 0.200 Normal 0.0-0.9 [facility] Comment on above: Result Comment: IG% - Immature Granulocytes (promyelocytes, myelocytes and metamyelocytes) > 1% indicates that a LEFT SHIFT is Present. Performed By: #### L 500.2500, L501.2300, L501.5200, L100.0100 ####[facility] [address] [place], [address] Lymphocytes/100 WBC (Bld) 25.5 % Normal 19-41 [facility] Comment on above: Performed By: #### L 500.2500, L501.2300, L501.5200, L100.0100 ####[facility] [address] [place], [address] MCH (RBC) [Entitic mass] 31.3 pg Normal 27.0-32.0 [facility] Comment on above: Performed By: #### L 500.2500, L501.2300, L501.5200, L100.0100 ####[facility] [address] [place], [address] MCHC (RBC) [Mass/Vol] 33.7 g/dL Normal 32-36 [facility] Comment on above: Performed By: #### L 500.2500, L501.2300, L501.5200, L100.0100 ####[facility] [address] [place], [address] MCV (RBC) [Entitic vol] 92.8 fL Normal 81-99 [facility] Comment on above: Performed By: #### L 500.2500, L501.2300, L501.5200, L100.0100 ####[facility] [address] [place], [address] Monocytes/100 WBC (Bld) 8.9 % Normal 0-10 [facility] Comment on above: Performed By: #### L 500.2500, L501.2300, L501.5200, L100.0100 ####[facility] [address] [place], [address] Neutrophils/100 WBC (Bld) 63.0 % Normal 47-70 [facility] Comment on above: Performed By: #### L 500.2500, L501.2300, L501.5200, L100.0100 ####[facility] [address] [place], [address] Nucleated RBC (Bld) [#/Vol] 0 10*3/uL Normal 0-5 [facility] Comment on above: Performed By: #### L 500.2500, L501.2300, L501.5200, L100.0100 ####[facility] [address] [place], [address] Platelet mean volume (Bld) [Entitic vol] 10.5 fL Normal 6.2-12.0 [facility] Comment on above: Performed By: #### L 500.2500, L501.2300, L501.5200, L100.0100 ####[facility] [address] [place], [address] Platelets (Bld) [#/Vol] 114 10*3/uL Low 150-450 [facility] Comment on above: Performed By: #### L 500.2500, L501.2300, L501.5200, L100.0100 ####[facility] [address] [place], [address] RBC (Bld) [#/Vol] 4.00 10*6/uL Low 4.2-5.4 [facility] Comment on above: Performed By: #### L 500.2500, L501.2300, L501.5200, L100.0100 ####[facility] [address] [place], [address] RDW SD 50.8 fl High 35.1-43.9 [facility] Comment on above: Performed By: #### L 500.2500, L501.2300, L501.5200, L100.0100 ####[facility] [address] [place], [address] WBC (Bld) [#/Vol] 4.2 10*3/uL Low 4.4-11.0 [facility] Comment on above: Performed By: #### L 500.2500, L501.2300, L501.5200, L100.0100 ####[facility] [address] [place], [address] Consultation - Surgicalon Consultation - Surgical [facility] Medical Records Department [address] [place] [address] Consultation - Surgical 03/04/25 1440 MR#: [id number] Acct: [id number] Name: BOAZ GOLDSTEIN Rep #: [id number] : 1965 59 From: Surendra De Luna MD PCP: Dr. Hu Hairston MD Status:ADM IN Location: [facility]3 RS385-3 Assessment Plan Assessment/Plan (1) Abscess: PLAN: Patient is 59-year-old female admitted for inpatient management of left upper back soft tissue infection. She reportedly failed outpatient management due to progressive fevers and concern for insufficient drainage. She underwent CT imaging of this area on her intake at her repeat ER visit which showed some skin thickening but no loculated fluid collections. Indeed, on exam there is not much fluctuance and is primarily consistent with cellulitic change/induration. Still, given presence of some purulent drainage on outer bandage I decided to proceed with bedside incision and drainage procedure. This was undertaken in uncomplicated fashion and yielded minimal additional purulence. I did try to improve the drainage situation by removing a small ellipse of tissue. Patient tolerated procedure well. Wound cultures were obtained. Will plan to remove packing and reassess wound in 24 hours. Agree with antibiotic therapy as previously instituted by hospitalist service. Surendra De Luna MD General Surgery Endocrine Surgery Pager: [facility] [address] [place] [address], [facility] [address] [place] [address] Office: [phone] HPI Consult Data Date of Consult: 03/04/25 HPI Narrative Reason for Consultation: Left upper back abscess HPI Narrative: BOZA GOLDSTEIN, is a 59 F [facility] failing [facility] management of a left upper back soft tissue infection. She shares that she awoke with pain and itching 2 days ago. As she has not able to visualize it directly herself, she asked those around her who advised she may be suffering from a spider bite and decided to present for emergency department evaluation the same day. During that evaluation she underwent a bedside incision and drainage procedure and was discharged home with return precautions. She states that she waited 24 hours to remove her packing but had minimal drainage and was experiencing fevers of Tmax 102 and 103 Fahrenheit. She also notes some associated lightheadedness and dizziness as well as poor appetite. She has no history of prior abscesses. There is no history of diabetes. Patient has a history of tobacco use but states she underwent sensation fall 2023. [facility] Medical History Alcohol use Abscessed tooth Post-menopausal [...] mg PO DAILY #90 tabs 05/07/22 Rx atorvastatin 10 mg tablet 10 mg PO QHS #90 tabs 05/07/22 Rx albuterol sulfate 90 mcg/actuation 2 puff inhalation Q4H PRN 02/22/24 History aerosol inhaler shortness of breath or wheezing aspirin 81 mg chewable tablet 1 tab PO DAILY 03/03/25 Unknown Hi story levothyroxine 137 mcg tablet 137 mcg PO DAILY 03/04/25 Unknown History Allergy/AdvReac Type Severity Reaction Status Date / Time cephalexin monohydrate (From Allergy Hives Verified 03/03/25 21:44 Keflex) latex Allergy Rash Verified 03/03/25 21:44 Penicillins (PCN) Allergy Hives Verified 03/03/25 21:44 Family History Grandfather Kidney disease Heart disease Colon cancer Sister Lung cancer Seizures Mother Cancer Diabetes Daughter Hypertension Thyroid disorder Surgical History Hx of colonoscopy History of cholecystectomy History of delivery Social History Smoking Status: Former smoker second hand exposure: Yes quit status: not considering quitting alcohol intake: never substance use type: does not use caffeine: Yes what type of physical activity do you participate in: none seatbelt use: always do you feel safe at home: Yes additional social (more content not included)... Normal [facility] Gram stainOrdered By: Antonio De Luna on 03-04-2025 Microscopic observation Gram stain Nom (Unsp spec) [facility] Gram stainOrdered By: Yanira Mejia on 03-04-2025 Microscopic observation Gram stain Nom (Unsp spec) [facility] H AND P Exam - Hospitaliston 03-04-2025 H&P Exam - Hospitalist [facility] Medical Records Department [address] [place] [address] H P Exam - Hospitalist 03/04/25 0014 MR#: [id number] Acct: [id number] Name: BOAZ GOLDSTEIN Rep #: [id number] : 1965 59 From: Dick Perez DO PCP: Dr. Hu Hairston MD Status:ADM IN Location: [facility] [id number] [facility] Date of Admission: 03/04/25 Date of Service: 03/04/25 Chief Complaint: Left Lat Cellulitis. HPI Narrative BOAZ GOLDSTEIN, is a 59 F with a past medical history of essential hypertension; on amlodipine, hyperlipidemia; on atorvastatin, hypothyroidism; on levothyroxine, obesity; with BMI of 36.7 this admission, history of tobacco abuse; with subsequent asthma/COPD, history of laryngeal mass, history of excision of abdominal wall tumor, history of colon polyps, GERD; currently not on treatment, OA; with scoliosis and recent visit to this ER yesterday for treatment of cellulitis of the Left latissimus dorsi muscle and initially started as an insect bite the patient noted to have a 6 cm x 3 cm area of erythema with a focal area of fluctuance and induration consistent with suspected abscess; s/p I D which yielded 3-4 cc of mostly bloody purulent fluid which was sent for culture. Patient then discharged home on oral trimethoprim-sulfam ethoxazole for 7 days who now re-presents to [facility] ER complaining of worsening symptoms with fever and lightheadedness. Ms. Goldstein reports she did not take any acetaminophen or ibuprofen to manage her fever - she just decided to come back in for further evaluation and treatment. She also admits to associated slight lightheadedness but she denies related chills, runny nose, sore throat, ear pain, shortness of breath, cough, chest pain, palpitations, heart racing, headache or rash. In the ER she was noted to have a CT scan of the chest which revealed diffuse skin and subcutaneous soft tissue thickening with subcutaneous fat stranding of the left posterior lateral chest wall likely due to Cellulitis with no obvious underlying fluid density or abscess formation. Unremarkable left posterolateral chest wall muscles. Bilateral upper lobe reticulonodular fibrotic scarring with calcified pulmonary nodules with no obvious masses, consolidations or cavitary changes. She was then diagnosed with Cellulitis complicated by Hypokalemia 3.1 mmol/L and moderate Thrombocytopenia of 126K both present on admission and she was then admitted to the general medical floor for ongoing care for state that is expected to extend beyond 2 midnights. [facility] Medical History Alcohol use Abscessed tooth Post-menopausal [...] mg PO DAILY #90 tabs 05/07/22 Rx atorvastatin 10 mg tablet 10 mg PO QHS #90 tabs 05/07/22 Rx albuterol sulfate 90 mcg/actuation 2 puff inhalation Q4H PRN 02/22/24 History aerosol inhaler shortness of breath or wheezing aspirin 81 mg chewable tablet 1 tab PO DAILY 03/03/25 Unknown Hi story levothyroxine 137 mcg tablet 137 mcg PO DAILY 03/04/25 Unknown History Allergy/AdvReac Type Severity Reaction Status Date / Time cephalexin monohydrate (From Allergy Hives Verified 03/03/25 21:44 Keflex) latex Allergy Rash Verified 03/03/25 21:44 Penicillins (PCN) Allergy Hives Verified 03/03/25 21:44 Family History Grandfather Kidney disease Heart disease Colon cancer Sister Lung cancer Seizures Mother Cancer Diabetes Daughter Hypertension Thyroid disorder Surgical History Hx of colonoscopy History of cholecystectomy History of delivery Social History Smoking Status: Former smoker second hand exposure: Yes quit status: not considering quitting alcohol intake: never substance use type: does not use caffeine: Yes what type of physical activity do you participate in: none seatbelt use: always do you feel safe at home: Yes additional social history: Employed Self reliance single ROS ROS Narrative Review of Systems: Consti (more content not included)... Normal [facility] MRSA Wound DNA by PCRon MRSA DNA ASSAY Negative Normal Negative [facility] Comment on above: Order Comment: left posterior back wound Performed By: #### L 501.4021, L500.2500, L501.9520, L100.0100 #### [facility] [address] [place], [place], [id number] SA DNA ASSAY Negative Normal Negative [facility] Comment on above: Order Comment: left posterior back wound Performed By: #### L 501.4021, L500.2500, L501.9520, L100.0100 #### [facility] [address] [place], [place], [id number] Magnesiumon 03-04-2025 Magnesium [Mass/Vol] 2.1 mg/dL Normal 1.5-2.2 [facility] Comment on above: Performed By: #### L 500.2500, L501.2300, L501.5200, L100.0100 ####[facility] [address] [place], [address] Magnesium measurement (mass/ volume)Ordered By: Benny Mejia on 03-04-2025 Magnesium (Unsp spec) [Mass/Vol] 2.1 mg/dL 1.5-2.2 [facility] Operative Reporton Operative Report [facility] Medical Records Department [address] [place] [address] Operative Report 03/04/25 1447 MR#: [id number] Acct: [id number] Name: BOAZ GOLDSTEIN Rep #: [id number] : 1965 59 From: Surendra De Luna MD PCP: Dr. Hu Hairston MD Status:ADM IN Location: [place] [address] Procedures Integumentary 10xxx: [address] Drainage of skin abscess Operative Report (Standard) Operative Information Date of Procedure: 03/04/25 Pre-Operative Diagnosis: Left upper back abscess Post-Operative Diagnosis: Same Surgery/Procedure Performed: Incision and drainage of left upper back abscess with local anesthetic digital marketing strategist: No Type of Anesthesia: Local (1% plain lidocaine) Procedure Start Time: 02:25 Procedure Stop Time: 02:40 Select all DRAINS/GRAFTS/IMPLA NTS that apply: Drains Drain details: Quarter inch iodoform packing strip Estimated Blood Loss: 3 Specimen collected: Yes Description of specimen(s) removed: Wound culture Description of surgery: After obtaining written consent, patient was positioned right lateral decubitus in her hospital bed. A verbal timeout was conducted to confirm the patient and procedure. Then the area was anesthetized with a local block using 5 mL of 1% lidocaine. Then, an 11 blade scalpel was used to make an elliptical incision in this area. This resulted in some bloody drainage but no significant purulence. The cavity was probed with a hemostat to disrupt loculations and manual pressure was applied to further express this discharge. A wound culture was obtained. The cavity was then irrigated with sterile saline. The cavity was packed tightly with quarter inch iodoform gauze. A 4 x 4 gauze was then folded in in half and taped over site. Patient tolerated the procedure without any apparent complication. EBL: 3 mL Surgical Findings: Minimal purulence, indurated tissue that limited spread of local anesthetic and dissection???no one drained loculations Complications Complications: No 03/04/25 1451 Cosigner Signature (if applicable): CC: Dr. Dick Perez DO; Dr. Surendra De Luna MD; Dr. Hu Hairston MD Signed Normal [facility] Phosphoruson 03-04-2025 Phosphate [Mass/Vol] 1.8 mg/dL Low 2.7-4.5 [facility] Comment on above: Performed By: #### L 500.2500, L501.2300, L501.5200, L100.0100 ####[facility] [address] [place], [place], [address] Staphylococcus aureus DNA de tection by probe and target amplification methodOrdered By: Benny Mejia on 03-04-2025 S. aureus DNA MACY+probe Ql (Unsp spec) Negative Negative [facility] Trough vancomycin levelOrder ed By: Dick Jain on 03-04-2025 Vancomycin trough [Mass/Vol] 13.4 ug/mL 5.0-15.0 [facility] Comment on above: Recommended goal tro ugh ranges are generally 10-15 mcg/ml for less severe/complicated infections such as cellulitis or UTI and 15-20 mcg/ml for more severe/complicated infections such as bacteremia/sepsis, osteomyelitis, pneumonia or meningitis. Goal trough ranges should take into account indication, patient-specific factors and organism CLARICE.VANCOMYCIN STANDARED DRUG THERAPY TROUGH LEVEL: 5.0 - 15.0 mg/L VANCOMYCIN HIGH INTENSITY THERAPY TROUGH LEVEL: 15.0 - 20.0 mg/L High Intensity therapy recommended for serious lifethreatening infections include:- Jbfogzxtoh-Rencfczwclky-Bvodqpabl (Ventilator/Healtcare Associated)-Sepsis PLEASE CONTACT PHARMACY SERVICES (#[id number]) FOR INTERPRETATIONOF RESULTS. Urine Cultureon 03-04-2025 URC Below infection level. Mixed Gram Positive Organisms [place] Count 1000-10,000 MIXC Mixed contaminants. Submit a new specimen if indicated. Normal [facility] Comment on above: Performed By: #### L 501.4021, L500.2500, L501.9520, L100.0100 #### [facility] [address] [place], [address] Vancomycin, Trough Levelon 0 03-04-2025 VANCO, TROUGH 13.4 ug/mL Normal 5.0-15.0 [facility] Comment on above: Order Comment: Comme nts: Trough to be drawn 30 mins prior to scheduled [id number] Result Comment: Santos mmended goal trough ranges are generally 10-15 mcg/ml for less severe/complicated infections such as cellulitis or UTI and 15-20 mcg/ml for more severe/complicated infections such as bacteremia/sepsis, osteomyelitis, pneumonia or meningitis. Goal trough ranges should take into account indication, patient-specific factors and organism CLARICE. VANCOMYCIN STANDARED DRUG THERAPY TROUGH LEVEL: 5.0 - 15.0 mg/L VANCOMYCIN HIGH INTENSITY THERAPY TROUGH LEVEL: 15.0 - 20.0 mg/L High Intensity therapy recommended for serious life threatening infections include: - Meningitis -Endocarditis -Pneumonia (Ventilator/Healtcare Associated) -Sepsis PLEASE CONTACT PHARMACY SERVICES (#[id number]) FOR INTERPRETATION OF RESULTS. Performed By: #### L 501.4021, L500.2500, L501.9520, L100.0100 #### [facility] [address] [place], [address] 12 Lead EKGon 03-03-2025 12 Lead EKG [facility] Cardiovascular Services [address] [place] [address] 12 Lead EKG 03/03/25 2243 MR#: [id number] Acct: [id number] Name: BOAZ GOLDSTEIN Rep #: [id number] : 1965 59 From: Nish Sterling MD Attending Dr: Dr. Patti Cornejo MD Status: AD M IN Ordering Dr: Emiliano Cisse DO Date: 03/03/25 Location: [facility]3 Sex: F C Admitted: 03/04/25 Test Reason : BACK Blood Pressure : */* mmHG Vent. Rate : 100 BPM Atrial Rate : 100 BPM P-R Int : 190 ms QRS Dur : 90 ms QT Int : 326 ms P-R-T Axes : 40 14 47 degrees QTcB Int : 420 ms Normal sinus rhythm Normal ECG Confirmed by NISH STERLING MD ([id number]), editor in chief newspaper RENE CUEVAS ([id number]) on 03/05/2025 10:58:58 AM Referred By: Confirmed By: NISH STERLING MD 03/05/25 1059 Date Nish Sterling MD CC: Dr. Patti Cornejo MD; Dr. Hu Hairston MD; Dr. Emiliano Cisse DO Signed Normal [facility] Absolute lymphocyte countOrd ered By: Emiliano Cisse on 03-03-2025 Lymphocytes Auto (Unsp spec) [#/Vol] 1.21 10*3/uL 0.83-4.51 [facility] Absolute neutrophil countOrd ered By: Emiliano Cisse on 03-03-2025 Neutrophils (Bld) [#/Vol] 5.1 10*3/uL 2.0-7.7 [facility] Activated partial thrombopla stin time (aPTT) in platelet poor plasma by coagulation aOrdered By: Emiliano Cisse on 03-03-2025 aPTT Coag (PPP) [Time] 26.5 s 24.1-36.2 [facility] Anion gap in Serum or Plasma Ordered By: Emiliano Cisse on 03-03-2025 Anion gap [Moles/Vol] 13 mmol/L 5-15 [facility] Automated lymphocyte count a s percentage of total leukocytesOrdered By: Emiliano Cisse on 03-03-2025 Lymphocytes/100 WBC Auto (Unsp spec) 17.3 % Low 19-41 [facility] BUN/creatinine ratioOrdered By: Emiliano Cisse on 03-03-2025 Urea nitrogen/Creatinine [Mass ratio] 10.8 mg/mg 10-20 [facility] Basophil percentageOrdered B y: Emiliano Cisse on 03-03-2025 Basophils/100 WBC (Bld) 0.7 % 0-1 [facility] Bilirubin, totalOrdered By: Emiliano Cisse on 03-03-2025 Bilirubin [Mass/Vol] 0.44 mg/dL 0.00-1.30 [facility] CBC W/Diff, Automatedon 07-0 5-2025 Absolute Lymph 1.21 X10 3/uL Normal 0.83-4.51 [facility] Comment on above: Performed By: #### L 100.0100, L503.6005, L300.4310, L300.3900, L500.4050 ####[facility] [address] [place], [address] Absolute Neut 5.1 X10 3/uL Normal 2.0-7.7 [facility] Comment on above: Performed By: #### L 100.0100, L503.6005, L300.4310, L300.3900, L500.4050 ####[facility] [address] [place], [address] Basophils/100 WBC (Bld) 0.7 % Normal 0-1 [facility] Comment on above: Performed By: #### L 100.0100, L503.6005, L300.4310, L300.3900, L500.4050 ####[facility] [address] [place], [address] Eosinophils/100 WBC (Bld) 0.1 % Normal 0-5 [facility] Comment on above: Performed By: #### L 100.0100, L503.6005, L300.4310, L300.3900, L500.4050 ####[facility] [address] [place], [address] Erythrocyte distribution width (RBC) [Ratio] 14.6 % Normal 11.6-14.6 [facility] Comment on above: Performed By: #### L 100.0100, L503.6005, L300.4310, L300.3900, L500.4050 ####[facility] [address] [place], [address] Hematocrit (Bld) [Volume fraction] 38.3 % Normal 37-47 [facility] Comment on above: Performed By: #### L 100.0100, L503.6005, L300.4310, L300.3900, L500.4050 ####[facility] [address] [place], [address] Hemoglobin (Bld) [Mass/Vol] 13.0 g/dL Normal 12.0-15.0 [facility] Comment on above: Performed By: #### L 100.0100, L503.6005, L300.4310, L300.3900, L500.4050 ####[facility] [address] [place], [address] IG% 0.600 Normal 0.0-0.9 [facility] Comment on above: Result Comment: IG% - Immature Granulocytes (promyelocytes, myelocytes and metamyelocytes) > 1% indicates that a LEFT SHIFT is Present. Performed By: #### L 100.0100, L503.6005, L300.4310, L300.3900, L500.4050 ####[facility] [address] [place], [address] Lymphocytes/100 WBC (Bld) 17.3 % Low 19-41 [facility] Comment on above: Performed By: #### L 100.0100, L503.6005, L300.4310, L300.3900, L500.4050 ####[facility] [address] [place], [address] MCH (RBC) [Entitic mass] 31.2 pg Normal 27.0-32.0 [facility] Comment on above: Performed By: #### L 100.0100, L503.6005, L300.4310, L300.3900, L500.4050 ####[facility] [address] [place], [address] MCHC (RBC) [Mass/Vol] 33.9 g/dL Normal 32-36 [facility] Comment on above: Performed By: #### L 100.0100, L503.6005, L300.4310, L300.3900, L500.4050 ####[facility] [address] [place], [address] MCV (RBC) [Entitic vol] 91.8 fL Normal 81-99 [facility] Comment on above: Performed By: #### L 100.0100, L503.6005, L300.4310, L300.3900, L500.4050 ####[facility] [address] [place], [address] Monocytes/100 WBC (Bld) 8.6 % Normal 0-10 [facility] Comment on above: Performed By: #### L 100.0100, L503.6005, L300.4310, L300.3900, L500.4050 ####[facility] [address] [place], [address] Neutrophils/100 WBC (Bld) 72.7 % High 47-70 [facility] Comment on above: Performed By: #### L 100.0100, L503.6005, L300.4310, L300.3900, L500.4050 ####[facility] [address] [place], [address] Nucleated RBC (Bld) [#/Vol] 0 10*3/uL Normal 0-5 [facility] Comment on above: Performed By: #### L 100.0100, L503.6005, L300.4310, L300.3900, L500.4050 ####[facility] [address] [place], [address] Platelet mean volume (Bld) [Entitic vol] 11.3 fL Normal 6.2-12.0 [facility] Comment on above: Performed By: #### L 100.0100, L503.6005, L300.4310, L300.3900, L500.4050 ####[facility] [address] [place], [address] Platelets (Bld) [#/Vol] 126 10*3/uL Low 150-450 [facility] Comment on above: Performed By: #### L 100.0100, L503.6005, L300.4310, L300.3900, L500.4050 ####[facility] [address] [place], [address] RBC (Bld) [#/Vol] 4.17 10*6/uL Low 4.2-5.4 [facility] Comment on above: Performed By: #### L 100.0100, L503.6005, L300.4310, L300.3900, L500.4050 ####[facility] [address] [place], [address] RDW SD 49.5 fl High 35.1-43.9 [facility] Comment on above: Performed By: #### L 100.0100, L503.6005, L300.4310, L300.3900, L500.4050 ####[facility] [address] [place], [address] WBC (Bld) [#/Vol] 7.0 10*3/uL Normal 4.4-11.0 [facility] Comment on above: Performed By: #### L 100.0100, L503.6005, L300.4310, L300.3900, L500.4050 ####[facility] [address] [place], [address] Carbon dioxide, total [Moles /volume] in Central venous bloodOrdered By: Emiliano Cisse on 03-03-2025 CO2 [Moles/Vol] 21.3 mmol/L 21.0-32.0 [facility] Chest without Contraston Chest without Contrast [facility] Imaging Services [address] [place], [place] [address] Chest without Contrast MR#: [id number] Acct: [id number] Name: BOAZ GOLDSTEIN Rep #: [id number] : 1965 F 59 From: Galo francisco MD PCP: Dr. Hu Hairston MD Status: REG ER Study: Chest without Contrast Date of Exam: 03/03/25 Exam# [id number] Ordering Dr: Emiliano Cisse DO PROCEDURE: CHEST WITHOUT CONTRAST 03/04/2025 REASON FOR EXAM: LEFT LATISSIMUS DORSI ABSCESS/CELLULITIS TECHNIQUE: Chest CT without contrast. Coronal and Sagittal reconstruction series were provided. One or more dose reduction techniques were used (e.g., Automated exposure control, adjustment of the mA and/or kV according to patient size, use of iterative reconstruction technique RADIATION DOSE SUMMARY: CTDlvol: mGy DLP: mGycm COMPARISON: 03-02-2025 FINDINGS: Diffuse skin and subcutaneous soft tissue thickening with subcutaneous fat stranding of the left posterolateral chest wall with no obvious underlying fluid density abscesses formation. Unremarkable left posterolateral chest wall muscles. Bilateral upper lobes reticulonodular and fibrotic scarring with calcified pulmonary nodules. No obvious pulmonary masses, consolidations or cavitary changes. Bilateral pulmonary atelectatic changes with patchy parenchymal opacities, possibly post infectious sequel. The heart size is within normal. No pleural or pericardial effusion. No pathologically enlarged lymph nodes are noted. No definite mass lesion in the chest wall. Intact bony thoracic cage with no fractures or osseous destruction. The examined vertebrae showing preserved height with no fracture of dislocation. Thoracic spondylosis. Scanned upper abdomen show hepatic steatosis. CT/Chest without Contrast IMPRESSION: Diffuse skin and subcutaneous soft tissue thickening with subcutaneous fat stranding of the left posterolateral chest wall, possibly cellulitis with no obvious underlying fluid density abscesses formation. Unremarkable left posterolateral chest wall muscles. Bilateral upper lobes reticulonodular and fibrotic scarring with calcified pulmonary nodules. No obvious pulmonary masses, consolidations or cavitary changes. Reading [facility] CC: Dr. Hu Hairston MD; Dr. Emiliano Cisse DO Shipping Supervisor: Signed Normal [facility] Chloride assayOrdered By: Terry Cisse on 03-03-2025 Chloride [Moles/Vol] 101 mmol/L 98-108 [facility] Comprehensive Metabolic Prof ilon 03-03-2025 Albumin [Mass/Vol] 4.1 g/dL Normal 3.4-4.8 [facility] Comment on above: Performed By: #### L 100.0100, L503.6005, L300.4310, L300.3900, L500.4050 ####[facility] [address] [place], [address] Albumin/Globulin [Mass ratio] 1.4 {ratio} Normal 0.9-2.4 [facility] Comment on above: Performed By: #### L 100.0100, L503.6005, L300.4310, L300.3900, L500.4050 ####[facility] [address] [place], [address] ALK PHOS 103 U/L Normal 35-104 [facility] Comment on above: Performed By: #### L 100.0100, L503.6005, L300.4310, L300.3900, L500.4050 ####[facility] [address] [place], [address] ALT [Catalytic activity/Vol] 51 U/L High <=34 [facility] Comment on above: Performed By: #### L 100.0100, L503.6005, L300.4310, L300.3900, L500.4050 ####[facility] [address] [place], [address] AST [Catalytic activity/Vol] 61 U/L High <=31 [facility] Comment on above: Performed By: #### L 100.0100, L503.6005, L300.4310, L300.3900, L500.4050 ####[facility] [address] [place], [address] Bilirubin [Mass/Vol] 0.44 mg/dL Normal 0.00-1.30 [facility] Comment on above: Performed By: #### L 100.0100, L503.6005, L300.4310, L300.3900, L500.4050 ####[facility] [address] [place], [address] BUN/CRE 10.8 RATIO Normal 10-20 [facility] Comment on above: Performed By: #### L 100.0100, L503.6005, L300.4310, L300.3900, L500.4050 ####[facility] [address] [place], [address] Calcium [Mass/Vol] 8.0 mg/dL Normal 7.6-11.0 [facility] Comment on above: Performed By: #### L 100.0100, L503.6005, L300.4310, L300.3900, L500.4050 ####[facility] [address] [place], [address] Chloride [Moles/Vol] 101 mmol/L Normal 98-108 [facility] Comment on above: Performed By: #### L 100.0100, L503.6005, L300.4310, L300.3900, L500.4050 ####[facility] [address] [place], [address] CO2 [Moles/Vol] 21.3 mmol/L Normal 21.0-32.0 [facility] Comment on above: Performed By: #### L 100.0100, L503.6005, L300.4310, L300.3900, L500.4050 ####[facility] [address] [place], [address] Creatinine [Mass/Vol] 0.74 mg/dL Normal 0.70-1.20 [facility] Comment on above: Performed By: #### L 100.0100, L503.6005, L300.4310, L300.3900, L500.4050 ####[facility] [address] [place], [address] ECRCL 100.16 ml/min Normal 50-250 [facility] Comment on above: Performed By: #### L 100.0100, L503.6005, L300.4310, L300.3900, L500.4050 ####[facility] [address] [place], [address] GAP 13 Normal 5-15 [facility] Comment on above: Performed By: #### L 100.0100, L503.6005, L300.4310, L300.3900, L500.4050 ####[facility] [address] [place], [address] GFR/1.73 sq M.predicted among non-blacks MDRD (S/P/Bld) [Vol rate/Area] 92 mL/min/{1.73_m2} Normal >60 [facility] Comment on above: Result Comment: mL/m in/1.73m2 CKD-EPI Creatinine Equation (2020) Performed By: #### L 100.0100, L503.6005, L300.4310, L300.3900, L500.4050 ####[facility] [address] [place], [address] Globulin (S) [Mass/Vol] 3.0 g/dL Normal 2.2-4.2 [facility] Comment on above: Performed By: #### L 100.0100, L503.6005, L300.4310, L300.3900, L500.4050 ####[facility] [address] [place], [address] Glucose [Mass/Vol] 106 mg/dL High 70-99 [facility] Comment on above: Performed By: #### L 100.0100, L503.6005, L300.4310, L300.3900, L500.4050 ####[facility] [address] [place], [address] Potassium [Moles/Vol] 3.1 mmol/L Low 3.3-5.1 [facility] Comment on above: Performed By: #### L 100.0100, L503.6005, L300.4310, L300.3900, L500.4050 ####[facility] [address] [place], [address] Sodium [Moles/Vol] 136 mmol/L Normal 133-145 [facility] Comment on above: Performed By: #### L 100.0100, L503.6005, L300.4310, L300.3900, L500.4050 ####[facility] [address] [place], [address] T PROT 7.1 g/dL Normal 5.9-8.4 [facility] Comment on above: Performed By: #### L 100.0100, L503.6005, L300.4310, L300.3900, L500.4050 ####[facility] [address] [place], [address] Urea nitrogen [Mass/Vol] 8 mg/dL Normal 4-19 [facility] Comment on above: Performed By: #### L 100.0100, L503.6005, L300.4310, L300.3900, L500.4050 ####[facility] [address] [place], [address] Emergency Department Summary on 03-03-2025 Emergency Department Summary [facility] Medical Records Department [address] [place] [address] Emergency Department Summary 03/03/25 MR#: [id number] Acct: [id number] Name: BOAZ GOLDSTEIN Rep #: [id number] : 1965 59 From: Emiliano Cisse DO PCP: Dr. Hu Hairston MD Status:ADM IN Location: [address] History of Present Illness Chief Complaint: Fever PFSH PFSH Medical History Alcohol use Abscessed tooth Post-menopausal [...] mg PO DAILY #90 tabs 05/07/22 Rx atorvastatin 10 mg tablet 10 mg PO QHS #90 tabs 05/07/22 Rx albuterol sulfate 90 mcg/actuation 2 puff inhalation Q4H PRN 02/22/24 History aerosol inhaler shortness of breath or wheezing aspirin 81 mg chewable tablet 1 tab PO DAILY 03/03/25 Unknown Hi story levothyroxine 137 mcg tablet 137 mcg PO DAILY 03/04/25 Unknown History Allergy/AdvReac Type Severity Reaction Status Date / Time cephalexin monohydrate (From Allergy Hives Verified 03/03/25 21:44 Keflex) latex Allergy Rash Verified 03/03/25 21:44 Penicillins (PCN) Allergy Hives Verified 03/03/25 21:44 Family History Grandfather Kidney disease Heart disease Colon cancer Sister Lung cancer Seizures Mother Cancer Diabetes Daughter Hypertension Thyroid disorder Surgical History Hx of colonoscopy History of cholecystectomy History of delivery Social History Smoking Status: Former smoker second hand exposure: Yes quit status: not considering quitting alcohol intake: never substance use type: does not use caffeine: Yes what type of physical activity do you participate in: none seatbelt use: always do you feel safe at home: Yes additional social 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 Physical Exam Const Vital Signs: 03/03/25 21:42 03/03/25 21:50 03/03/25 22:43 Temperature 99.9 F H Temperature Source Oral Pulse Rate 107 H Respiratory Rate 20 H Respiratory Effort Normal Non-Labored Blood Pressure 141/80 H Blood Pressure Mean 100 Pulse Ox 98 98 Oxygen Delivery Method Room Air Room Air 03/03/25 23:09 03/03/25 23:41 Temperature 98.8 F Temperature Source Oral Pulse Rate 96 89 Respiratory Rate 20 H Respiratory Effort Blood Pressure 147/96 H 147/96 H Blood Pressure Mean 113 113 Pulse Ox 97 96 Oxygen Delivery Method Room Air Room Air MDM [facility] Narrative Medical decision making narrative: HISTORY OF PRESENT ILLNESS: Chief complaint: Fever 59-year-old female presents with fever in the setting abscess/cellulitis status post I D yesterday. Patient notes she did not take any Tyle ibuprofen today but notes she feels feverish slightly lightheaded. Denies vomiting or abdominal pain. REVIEW OF SYSTEMS: Pertinent positives: Fever, cellulitis Pertinent negatives: As per HPI PHYSICAL EXAM: Nursing triage notes reviewed, Vital signs reviewed Constitutional: please see mdm HENT: MMM Eyes: Pupils equal round and reactive to light, Extraocular muscles intact Neck: No stridor, no JVD, full neck ROM Lungs: Clear to auscultation, No wheezing or rales. No increased work of breathing, no conversational dyspnea, no accessory muscle use, no nasal flaring. No respiratory distress noted Heart: Regular rate and rhythm, No murmurs, No rubs and No gallops, 2+ distal pulses (radial, femoral, posterior tibial) in all extremities Abdomen: Soft, there is no tenderness, rigidity, rebound or guarding, no obvious peritoneal signs, no palpable pulsatile abdominal masses, no auscultated abdominal bruit : No CVAT Extremities: No edema Neuro: No new focal neurological deficits, cranial nerves II through XII intact, 5/5 strength in all present extremities. Intact sensation to light touch in all present extremities, 2+ reflexes bilateral patella tendons. Skin: Left latissimus dorsi erythema approximately 3 x 6 cm status post I D with no obvious crepitus bullae or drainage (more content not included)... Normal [facility] Eosinophil percentageOrdered By: Emiliano Cisse on 03-03-2025 Eosinophils/100 WBC (Bld) 0.1 % 0-5 [facility] Erythrocyte distribution wid th ratioOrdered By: Emiliano Cisse on 03-03-2025 Erythrocyte distribution width (RBC) [Ratio] 14.6 % 11.6-14.6 [facility] Erythrocyte distribution wid th standard deviationOrdered By: Emiliano Cisse on 03-03-2025 Erythrocyte distribution width (RBC) [Ratio] 49.5 fl High 35.1-43.9 [facility] Glomerular filtration rate ( GFR) estimation/1.73 sq m using serum, plasma, or whole bOrdered By: Emiliano Cisse on 03-03-2025 GFR/1.73 sq M.predicted among non-blacks MDRD (S/P/Bld) [Vol rate/Area] 92 mL/min/{1.73_m2} >60 [facility] Comment on above: mL/min/1.73m2 CKD-EP I Creatinine Equation (2020) Gram Stainon 03-03-2025 GS Gram Stain 1+ White Blood Cells No Epithelial cells No organisms seen Normal [facility] Comment on above: Performed By: #### L 501.080 #### [facility] [address] [place], [place] [address], [address] Hematocrit Auto (Bld) [Volum e fraction]Ordered By: Emiliano Cisse on 03-03-2025 Hematocrit (Bld) [Volume fraction] 38.3 % 37-47 [facility] Hemoglobin measurementOrdere d By: Emiliano Cisse on 03-03-2025 Hemoglobin (Bld) [Mass/Vol] 13.0 g/dL 12.0-15.0 [facility] Immature granulocytes/100 WB C Auto (Bld)Ordered By: Emiliano Cisse on 03-03-2025 Immature granulocytes/100 WBC (Bld) 0.600 % 0.0-0.9 [facility] Comment on above: IG% - Immature Granu locytes (promyelocytes, myelocytes and metamyelocytes) > 1% indicates that a LEFT SHIFT is Present. International normalized rat io (INR) calculationOrdered By: Emiliano Cisse on 03-03-2025 INR Coag (Bld) [Relative time] 1.0 {INR} [facility] - Chemistry and C hemistry - challengeOrdered By: Emiliano Cisse on 03-03-2025 AST [Catalytic activity/Vol] 61 U/L High <32 [facility] Lactic Acidon 03-03-2025 Lactate [Moles/Vol] 1.0 mmol/L Normal 0.0-2.0 [facility] Comment on above: Order Comment: Y Performed By: #### L 100.0100, L503.6005, L300.4310, L300.3900, L500.4050 ####[facility] [address] [place], [address] Lactic acid measurementOrder ed By: Emiliano Cisse on 03-03-2025 Lactate [Moles/Vol] 1.0 mmol/L 0.0-2.0 [facility] MCV (mean corpuscular volume ) determinationOrdered By: Emiliano Cisse on 03-03-2025 MCV (RBC) [Entitic vol] 91.8 fL 81-99 [facility] Mean corpuscular hemoglobin (MCH) determinationOrdered By: Emiliano Cisse on 03-03-2025 MCH (RBC) [Entitic mass] 31.2 pg 27.0-32.0 [facility] Mean corpuscular hemoglobin concentration (MCHC) determinationOrdered By: Emiliano Cisse on 03-03-2025 MCHC (RBC) [Mass/Vol] 33.9 g/dL 32-36 [facility] Mean platelet volume determi nationOrdered By: Emiliano Cisse on 03-03-2025 Platelet mean volume (Bld) [Entitic vol] 11.3 fL 6.2-12.0 [facility] Monocyte percentageOrdered B y: Emiliano Cisse on 03-03-2025 Monocytes/100 WBC (Bld) 8.6 % 0-10 [facility] Neutrophil percentageOrdered By: Emiliano Cisse on 03-03-2025 Neutrophils/100 WBC (Bld) 72.7 % High 47-70 [facility] Nucleated red blood cell per centageOrdered By: Emiliano Cisse on 03-03-2025 Nucleated RBC/100 WBC (Bld) [Ratio] 0 % 0-5 [facility] Partial Thromboplast Timeon 03-03-2025 aPTT Coag (Bld) [Time] 26.5 s Normal 24.1-36.2 [facility] Comment on above: Performed By: #### L 100.0100, L503.6005, L300.4310, L300.3900, L500.4050 ####[facility] [address] [place], [address] Platelet countOrdered By: Terry Cisse on 03-03-2025 Platelets (Bld) [#/Vol] 126 10*3/uL Low 150-450 [facility] Potassium measurement (mass/ volume)Ordered By: Emiilano Cisse on 03-03-2025 Potassium (Unsp spec) [Mass/Vol] 3.1 mmol/L Low 3.3-5.1 [facility] Prothrombin Time w/INRon INR Coag (PPP) [Relative time] 1.0 {INR} Normal [facility] Comment on above: Performed By: #### L 100.0100, L503.6005, L300.4310, L300.3900, L500.4050 ####[facility] [address] [place], [address] PT Coag (PPP) [Time] 13.1 s Normal 11.7-14.9 [facility] Comment on above: Performed By: #### L 100.0100, L503.6005, L300.4310, L300.3900, L500.4050 ####[facility] [address] [place], [place], [address] Prothrombin timeOrdered By: Emiliano Cisse on 03-03-2025 PT Coag (PPP) [Time] 13.1 s 11.7-14.9 [facility] RBC Auto (Bld) [#/Vol]Ordere d By: Emiliano Cisse on 03-03-2025 RBC (Bld) [#/Vol] 4.17 10*6/uL Low 4.2-5.4 [facility] Serum creatinine measurement (mass/volume)Ordered By: Emiliano Cisse on 03-03-2025 Creatinine [Mass/Vol] 0.74 mg/dL 0.70-1.20 [facility] Serum globulin measurementOr dered By: Emiliano Cisse on 03-03-2025 Globulin (S) [Mass/Vol] 3.0 g/dL 2.2-4.2 [facility] Serum glucose measurement (m ass/volume)Ordered By: Emiliano Cisse on 03-03-2025 Glucose [Mass/Vol] 106 mg/dL High 70-99 [facility] Serum or plasma alanine harding otransferase (ALT) measurementOrdered By: Emiliano Cisse on 03-03-2025 ALT [Catalytic activity/Vol] 51 U/L High <35 [facility] Serum or plasma albumin gómez urement (mass/volume)Ordered By: Emiliano Cisse on 03-03-2025 Albumin [Mass/Vol] 4.1 g/dL 3.4-4.8 [facility] Serum or plasma albumin/glob ulin mass ratioOrdered By: Emiliano Cisse on 03-03-2025 Albumin/Globulin [Mass ratio] 1.4 {ratio} 0.9-2.4 [facility] Serum or plasma alkaline cassidy sphatase measurementOrdered By: Emiliano Cisse on 03-03-2025 ALP [Catalytic activity/Vol] 103 U/L 35-104 [facility] Serum or plasma calcium gómez urement (mass/volume)Ordered By: Emiliano Cisse on 03-03-2025 Calcium [Mass/Vol] 8.0 mg/dL 7.6-11.0 [facility] Serum or plasma urea nitroge n measurement (mass/volume)Ordered By: Emiliano Cisse on 03-03-2025 Urea nitrogen [Mass/Vol] 8 mg/dL 4-19 [facility] Sodium levelOrdered By: Dora Cisse on 03-03-2025 Sodium [Moles/Vol] 136 mmol/L 133-145 [facility] Total proteinOrdered By: Annia Cisse on 03-03-2025 Protein [Mass/Vol] 7.1 g/dL 5.9-8.4 [facility] White blood cell (WBC) count Ordered By: Emiliano Cisse on 03-03-2025 WBC (Bld) [#/Vol] 7.0 10*3/uL 4.4-11.0 [facility] 12 Lead EKGon 03-02-2025 12 Lead EKG [facility] Cardi[facility] [address] [place] [address] 12 Lead EKG 03/02/25 1556 MR#: [id number] Acct: [id number] Name: BOAZ GOLDSTEIN Rep #: [id number] : 1965 59 From: Nish Sterling MD Attending Dr: Status: DEP ER Ordering Dr: Emiliano Cisse DO Date: 03/02/25 Location: ED Sex: F C Admitted: Test Reason : BITE Blood Pressure : */* mmHG Vent. Rate : 113 BPM Atrial Rate : 113 BPM P-R Int : 172 ms QRS Dur : 82 ms QT Int : 312 ms P-R-T Axes : 48 33 60 degrees QTcB Int : 427 ms Sinus tachycardia Otherwise normal ECG Confirmed by NISH STERLING MD ([id number]), editor in chief newspaper RENE CUEVAS ([id number]) on 03/05/2025 10:32:51 AM Referred By: Confirmed By: NISH STERLING MD 03/05/25 1032 Date Nish Sterling MD CC: Dr. Hu Hairston MD; Dr. Emiliano Cisse DO Signed Normal [facility] Absolute lymphocyte countOrd ered By: Emiliano Cisse on 03-02-2025 Lymphocytes Auto (Unsp spec) [#/Vol] 1.08 10*3/uL 0.83-4.51 [facility] Absolute neutrophil countOrd ered By: Emiliano Cisse on 03-02-2025 Neutrophils (Bld) [#/Vol] 6.8 10*3/uL 2.0-7.7 [facility] Activated partial thrombopla stin time (aPTT) in platelet poor plasma by coagulation aOrdered By: Emiliano Cisse on 03-02-2025 aPTT Coag (PPP) [Time] 25.6 s 24.1-36.2 [facility] Anion gap in Serum or Plasma Ordered By: Emiliano Cisse on 03-02-2025 Anion gap [Moles/Vol] 13 mmol/L 5-15 [facility] Automated lymphocyte count a s percentage of total leukocytesOrdered By: Emiliano Cisse on 03-02-2025 Lymphocytes/100 WBC Auto (Unsp spec) 12.6 % Low 19-41 [facility] BUN/creatinine ratioOrdered By: Emiliano Cisse on 03-02-2025 Urea nitrogen/Creatinine [Mass ratio] 19.1 mg/mg 10-20 [facility] Basophil percentageOrdered B y: Emiliano Cisse on 03-02-2025 Basophils/100 WBC (Bld) 0.5 % 0-1 [facility] Bilirubin Test strip Ql (U)O rdered By: Emiliano Cisse on 03-02-2025 Bilirubin Ql (U) Negative Negative [facility] Bilirubin, totalOrdered By: Emiliano Cisse on 03-02-2025 Bilirubin [Mass/Vol] 0.40 mg/dL 0.00-1.30 [facility] Blood cultureOrdered By: Annia Cisse on 03-02-2025 Bacteria identified Cx Nom (Bld) No growth in 5 days. [facility] Bacteria identified Cx Nom (Bld) Negative Abnormal [facility] CBC W/Diff, Automatedon Absolute Lymph 1.08 X10 3/uL Normal 0.83-4.51 [facility] Comment on above: Performed By: #### L 501.4021, L500.2500, L501.5469, L100.0100 #### [facility] [address] [place], [address] Absolute Neut 6.8 X10 3/uL Normal 2.0-7.7 [facility] Comment on above: Performed By: #### L 501.4021, L500.2500, L501.9520, L100.0100 #### [facility] [address] [place], [address] Basophils/100 WBC (Bld) 0.5 % Normal 0-1 [facility] Comment on above: Performed By: #### L 501.4021, L500.2500, L501.9520, L100.0100 #### [facility] [address] [place], [address] Eosinophils/100 WBC (Bld) 0.1 % Normal 0-5 [facility] Comment on above: Performed By: #### L 501.4021, L500.2500, L501.9520, L100.0100 #### [facility] [address] [place], [address] Erythrocyte distribution width (RBC) [Ratio] 14.6 % Normal 11.6-14.6 [facility] Comment on above: Performed By: #### L 501.4021, L500.2500, L501.9520, L100.0100 #### [facility] [address] [place], [address] Hematocrit (Bld) [Volume fraction] 40.8 % Normal 37-47 [facility] Comment on above: Performed By: #### L 501.4021, L500.2500, L501.9520, L100.0100 #### [facility] [address] [place], [address] Hemoglobin (Bld) [Mass/Vol] 13.7 g/dL Normal 12.0-15.0 [facility] Comment on above: Performed By: #### L 501.4021, L500.2500, L501.9520, L100.0100 #### [facility] [address] [place], [address] IG% 0.600 Normal 0.0-0.9 [facility] Comment on above: Result Comment: IG% - Immature Granulocytes (promyelocytes, myelocytes and metamyelocytes) > 1% indicates that a LEFT SHIFT is Present. Performed By: #### L 501.4021, L500.2500, L501.9520, L100.0100 #### [facility] [address] [place], [address] Lymphocytes/100 WBC (Bld) 12.6 % Low 19-41 [facility] Comment on above: Performed By: #### L 501.4021, L500.2500, L501.9520, L100.0100 #### [facility] [address] [place], [address] MCH (RBC) [Entitic mass] 31.4 pg Normal 27.0-32.0 [facility] Comment on above: Performed By: #### L 501.4021, L500.2500, L501.9520, L100.0100 #### [facility] [address] [place], [address] MCHC (RBC) [Mass/Vol] 33.6 g/dL Normal 32-36 [facility] Comment on above: Performed By: #### L 501.4021, L500.2500, L501.9520, L100.0100 #### [facility] [address] [place], [address] MCV (RBC) [Entitic vol] 93.6 fL Normal 81-99 [facility] Comment on above: Performed By: #### L 501.4021, L500.2500, L501.9520, L100.0100 #### [facility] [address] [place], [address] Monocytes/100 WBC (Bld) 6.7 % Normal 0-10 [facility] Comment on above: Performed By: #### L 501.4021, L500.2500, L501.9520, L100.0100 #### [facility] [address] [place], [address] Neutrophils/100 WBC (Bld) 79.5 % High 47-70 [facility] Comment on above: Performed By: #### L 501.4021, L500.2500, L501.9520, L100.0100 #### [facility] [address] [place], [address] Nucleated RBC (Bld) [#/Vol] 0 10*3/uL Normal 0-5 [facility] Comment on above: Performed By: #### L 501.4021, L500.2500, L501.9520, L100.0100 #### [facility] [address] [place], [address] Platelet mean volume (Bld) [Entitic vol] 11.2 fL Normal 6.2-12.0 [facility] Comment on above: Performed By: #### L 501.4021, L500.2500, L501.9520, L100.0100 #### [facility] [address] [place], [address] Platelets (Bld) [#/Vol] 159 10*3/uL Normal 150-450 [facility] Comment on above: Performed By: #### L 501.4021, L500.2500, L501.9520, L100.0100 #### [facility] [address] [place], [address] RBC (Bld) [#/Vol] 4.36 10*6/uL Normal 4.2-5.4 [facility] Comment on above: Performed By: #### L 501.4021, L500.2500, L501.9520, L100.0100 #### [facility] [address] [place], [address] RDW SD 50.1 fl High 35.1-43.9 [facility] Comment on above: Performed By: #### L 501.4021, L500.2500, L501.9520, L100.0100 #### [facility] [address] [place], [address] WBC (Bld) [#/Vol] 8.6 10*3/uL Normal 4.4-11.0 [facility] Comment on above: Performed By: #### L 501.4021, L500.2500, L501.9520, L100.0100 #### [facility] [address] [place], [address] Carbon dioxide, total [Moles /volume] in Central venous bloodOrdered By: Emiliano Cisse on 03-02-2025 CO2 [Moles/Vol] 23.8 mmol/L 21.0-32.0 [facility] Chest 1 View (Portable)on Chest 1 View (Portable) [facility] Imaging Services [address] [place] [address] Chest 1 View (Portable) MR#: [id number] Acct: [id number] Name: BOAZ GOLDSTEIN Rep #: [id number] : 1965 F 59 From: Man Stovall MD PCP: Dr. Hu Hairston MD Status: REG ER Study: Chest 1 View (Portable) Date of Exam: 03/02/25 Exam# [id number] Ordering Dr: Emiliano Cisse DO EXAM: XR Chest, 1 View CLINICAL INDICATION: SEPSIS TECHNIQUE: Frontal view of the chest. COMPARISON: No relevant prior studies available. FINDINGS: LUNGS AND PLEURAL SPACES: See below. HEART: Cardiomegaly with mild congestion. MEDIASTINUM: Unremarkable. Normal mediastinal contour. BONES/JOINTS: Unremarkable. No acute fracture. RAD/Chest 1 View (Portable) IMPRESSION: Cardiomegaly with mild congestion. Reading Location: [id number] CC: Dr. Hu Hairston MD; Dr. Emiliano Cisse DO Shipping Supervisor: Signed Normal [facility] Chloride assayOrdered By: Terry Cisse on 03-02-2025 Chloride [Moles/Vol] 101 mmol/L 98-108 [facility] Comprehensive Metabolic Prof ilon 03-02-2025 Albumin [Mass/Vol] 4.2 g/dL Normal 3.4-4.8 [facility] Comment on above: Performed By: #### L 501.4021, L500.2500, L501.9520, L100.0100 #### [facility] [address] [place], [address] Albumin/Globulin [Mass ratio] 1.4 {ratio} Normal 0.9-2.4 [facility] Comment on above: Performed By: #### L 501.4021, L500.2500, L501.9520, L100.0100 #### [facility] [address] [place], [address] ALK PHOS 116 U/L High 35-104 [facility] Comment on above: Performed By: #### L 501.4021, L500.2500, L501.9520, L100.0100 #### [facility] [address] [place], [address] ALT [Catalytic activity/Vol] 24 U/L Normal <=34 [facility] Comment on above: Performed By: #### L 501.4021, L500.2500, L501.9520, L100.0100 #### [facility] [address] [place], [address] AST [Catalytic activity/Vol] 29 U/L Normal <=31 [facility] Comment on above: Performed By: #### L 501.4021, L500.2500, L501.9520, L100.0100 #### [facility] [address] [place], [address] Bilirubin [Mass/Vol] 0.40 mg/dL Normal 0.00-1.30 [facility] Comment on above: Performed By: #### L 501.4021, L500.2500, L501.9520, L100.0100 #### [facility] [address] [place], [address] BUN/CRE 19.1 RATIO Normal 10-20 [facility] Comment on above: Performed By: #### L 501.4021, L500.2500, L501.9520, L100.0100 #### [facility] [address] [place], [address] Calcium [Mass/Vol] 8.6 mg/dL Normal 7.6-11.0 [facility] Comment on above: Performed By: #### L 501.4021, L500.2500, L501.9520, L100.0100 #### [facility] [address] [place], [address] Chloride [Moles/Vol] 101 mmol/L Normal 98-108 [facility] Comment on above: Performed By: #### L 501.4021, L500.2500, L501.9520, L100.0100 #### [facility] [address] [place], [address] CO2 [Moles/Vol] 23.8 mmol/L Normal 21.0-32.0 [facility] Comment on above: Performed By: #### L 501.4021, L500.2500, L501.9520, L100.0100 #### [facility] [address] [place], [address] Creatinine [Mass/Vol] 0.72 mg/dL Normal 0.70-1.20 [facility] Comment on above: Performed By: #### L 501.4021, L500.2500, L501.9520, L100.0100 #### [facility] [address] [place], [address] ECRCL 102.87 ml/min Normal 50-250 [facility] Comment on above: Performed By: #### L 501.4021, L500.2500, L501.9520, L100.0100 #### [facility] [address] [place], [address] GAP 13 Normal 5-15 [facility] Comment on above: Performed By: #### L 501.4021, L500.2500, L501.9520, L100.0100 #### [facility] [address] [place], [address] GFR/1.73 sq M.predicted among non-blacks MDRD (S/P/Bld) [Vol rate/Area] 95 mL/min/{1.73_m2} Normal >60 [facility] Comment on above: Result Comment: mL/m in/1.73m2 CKD-EPI Creatinine Equation (2020) Performed By: #### L 501.4021, L500.2500, L501.9520, L100.0100 #### [facility] [address] [place], [address] Globulin (S) [Mass/Vol] 3.1 g/dL Normal 2.2-4.2 [facility] Comment on above: Performed By: #### L 501.4021, L500.2500, L501.9520, L100.0100 #### [facility] [address] [place], [address] Glucose [Mass/Vol] 110 mg/dL High 70-99 [facility] Comment on above: Performed By: #### L 501.4021, L500.2500, L501.9520, L100.0100 #### [facility] [address] [place], [address] Potassium [Moles/Vol] 3.3 mmol/L Normal 3.3-5.1 [facility] Comment on above: Performed By: #### L 501.4021, L500.2500, L501.9520, L100.0100 #### [facility] [address] [place], [address] Sodium [Moles/Vol] 138 mmol/L Normal 133-145 [facility] Comment on above: Performed By: #### L 501.4021, L500.2500, L501.9520, L100.0100 #### [facility] [address] [place], [address] T PROT 7.4 g/dL Normal 5.9-8.4 [facility] Comment on above: Performed By: #### L 501.4021, L500.2500, L501.9520, L100.0100 #### [facility] [address] [place], [address] Urea nitrogen [Mass/Vol] 14 mg/dL Normal 4-19 [facility] Comment on above: Performed By: #### L 501.4021, L500.2500, L501.9520, L100.0100 #### [facility] [address] [place], [address] Emergency Department Summary on 03-02-2025 Emergency Department Summary [facility] Medical Records Department [address] [place] [address] Emergency Department Summary 03/02/25 MR#: [id number] Acct: [id number] Name: BOAZ GOLDSTEIN Rep #: [id number] : 1965 59 From: Emiliano Cisse DO PCP: Dr. Hu Hairston MD Status:REG ER Location: ED HPI History of Present Illness Chief Complaint: Bite PFSH PFSH Medical History Alcohol use Abscessed tooth Post-menopausal [...] .Route 5 Unknown Rx .COMPLEX #24 tabs prednisone 20 mg tablet 60 mg (3 x 20 mg) PO DAILY #15 Unknown Rx TABLETS sulfamethoxazole 800 1 tab PO BID 7 days #14 tabs 03/02 Unknown Rx mg-trimethoprim 160 mg tablet (Bactrim DS) Allergy/AdvReac Type Severity Reaction Status Date / Time cephalexin monohydrate (From Allergy Hives Verified 03/02/25 15:26 Keflex) latex Allergy Rash Verified 03/02/25 15:26 Penicillins (PCN) Allergy Hives Verified 03/02/25 15:26 Family History Grandfather Kidney disease Heart disease Colon cancer [facility] cancer Seizures Mother Cancer Diabetes Daughter Hypertension Thyroid disorder Surgical History Hx of colonoscopy History of cholecystectomy History of delivery Social History Smoking Status: Light Smoker (<10/day) second hand exposure: Yes quit status: not considering quitting alcohol intake: never substance use type: does not use caffeine: Yes what type of physical activity do you participate in: none seatbelt use: always do you feel safe at home: Yes additional social 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 Physical Exam Const Vital Signs: 03/02/25 14:10 03/02/25 15:39 03/02/25 17:13 Temperature 101 F H 99.2 F H Temperature Source Oral Oral Pulse Rate 115 H 108 H Respiratory Rate 20 H 16 Blood Pressure 165/91 H 135/70 H Blood Pressure Mean 115 91 Pulse Ox 99 97 96 Oxygen Delivery Method Room Air Room Air Room Air 03/02/25 18:14 Temperature 99.0 F Temperature Source Pulse Rate 100 Respiratory Rate 20 H Blood Pressure 111/75 Blood Pressure Mean 87 Pulse Ox 98 Oxygen Delivery Method MDM MDM MDM Narrative Medical decision making narrative: HISTORY OF [id number] ILLNESS: Chief complaint: Bite 59-year-old female history of hyperlipidemia, hypertension, laryngeal mass, tobacco abuse and hypothyroidism as well as COPD presents with concern for a wound. She states she noticed that yesterday she thinks it could be a insect bite of some sort. She notes itching today and increased swelling. Denies fever, [place] vomiting. No severe pain in the left lateral mid back. REVIEW OF SYSTEMS: Pertinent positives: Wound, fever Pertinent negatives: Vomiting, chest pain, shortness of breath, cough, urinary complaint PHYSICAL EXAM: Nursing triage notes reviewed, Vital signs reviewed Constitutional: please see mdm HENT: MMM Eyes: Pupils equal round and reactive to light, Extraocular muscles intact Neck: No stridor, no JVD, full neck ROM Lungs: Clear to auscultation, No wheezing or rales. No increased work of breathing, no conversational dyspnea, no accessory muscle use, no nasal flaring. No respiratory distress noted Heart: Regular rate and rhythm, No murmurs, No rubs and No gallops, 2+ distal pulses (radial, femoral, posterior tibial) in all extremities Abdomen: Soft, there is no tenderness, rigidity, rebound or guarding, no obvious peritoneal signs, no palpable pulsatile abdom (more content not included)... Normal [facility] Eosinophil percentageOrdered By: Emiliano Cisse on 03-02-2025 Eosinophils/100 WBC (Bld) 0.1 % 0-5 [facility] Erythrocyte distribution wid th ratioOrdered By: Emiliano Cisse on 03-02-2025 Erythrocyte distribution width (RBC) [Ratio] 14.6 % 11.6-14.6 [facility] Erythrocyte distribution wid th standard deviationOrdered By: Emiliano Cisse on 03-02-2025 Erythrocyte distribution width (RBC) [Ratio] 50.1 fl High 35.1-43.9 [facility] Glomerular filtration rate ( GFR) estimation/1.73 sq m using serum, plasma, or whole bOrdered By: Emiliano Cisse on 03-02-2025 GFR/1.73 sq M.predicted among non-blacks MDRD (S/P/Bld) [Vol rate/Area] 95 mL/min/{1.73_m2} >60 [facility] Comment on above: mL/min/1.73m2 CKD-EP I Creatinine Equation (2020) Gram stainOrdered By: Emiliano Cisse on 03-02-2025 Microscopic observation Gram stain Nom (Unsp spec) [facility] Hematocrit Auto (Bld) [Volum e fraction]Ordered By: Emiliano Cisse on 03-02-2025 Hematocrit (Bld) [Volume fraction] 40.8 % 37-47 [facility] Hemoglobin measurementOrdere d By: Emiliano Cisse on 03-02-2025 Hemoglobin (Bld) [Mass/Vol] 13.7 g/dL 12.0-15.0 [facility] Immature granulocytes/100 WB C Auto (Bld)Ordered By: Emiliano Cisse on 03-02-2025 Immature granulocytes/100 WBC (Bld) 0.600 % 0.0-0.9 [facility] Comment on above: IG% - Immature Granu locytes (promyelocytes, myelocytes and metamyelocytes) > 1% indicates that a LEFT SHIFT is Present. International normalized rat io (INR) calculationOrdered By: Emiliano Cisse on 03-02-2025 INR Coag (Bld) [Relative time] 1.0 {INR} [facility] Ketones Test strip Ql (U)Ord ered By: Emiliano Cisse on 03-02-2025 Ketones Ql (U) Negative Negative [facility] Laboratory - Chemistry and C hemistry - challengeOrdered By: Emiliano Cisse on 03-02-2025 AST [Catalytic activity/Vol] 29 U/L <32 [facility] Lactic Acidon 03-02-2025 Lactate [Moles/Vol] mmol/L Normal 0.0-2.0 [facility] Comment on above: Order Comment: Y Performed By: #### L 501.4021, L500.2500, L501.9520, L100.0100 #### [facility] [address] [place], [address] Lactic acid measurementOrder ed By: Emiliano Cisse on 03-02-2025 Lactate [Moles/Vol] mmol/L 0.0-2.0 [facility] MCV (mean corpuscular volume ) determinationOrdered By: Emiliano Cisse on 03-02-2025 MCV (RBC) [Entitic vol] 93.6 fL 81-99 [facility] Mean corpuscular hemoglobin (MCH) determinationOrdered By: Emiliano Cisse on 03-02-2025 MCH (RBC) [Entitic mass] 31.4 pg 27.0-32.0 [facility] Mean corpuscular hemoglobin concentration (MCHC) determinationOrdered By: Emiliano Cisse on 03-02-2025 MCHC (RBC) [Mass/Vol] 33.6 g/dL 32-36 [facility] Mean platelet volume determi nationOrdered By: Emiliano Cisse on 03-02-2025 Platelet mean volume (Bld) [Entitic vol] 11.2 fL 6.2-12.0 [facility] Microscopic analysis of urin e for red blood cells (RBC)Ordered By: Emiliano Cisse on 03-02-2025 Microscopic analysis of urine for red blood cells (RBC) 5-10 SEEN /hpf 0-5 [facility] Monocyte percentageOrdered B y: Emiliano Cisse on 03-02-2025 Monocytes/100 WBC (Bld) 6.7 % 0-10 [facility] Mucus LM Ql (Urine sed)Order ed By: Emiliano Cisse on 03-02-2025 Mucus Ql (Urine sed) 1+ /hpf [facility] Neutrophil percentageOrdered By: Emiliano Cisse on 03-02-2025 Neutrophils/100 WBC (Bld) 79.5 % High 47-70 [facility] Nitrite Test strip Ql (U)Ord ered By: Emiliano Cisse on 03-02-2025 Nitrite Ql (U) Negative Negative [facility] Nucleated red blood cell per centageOrdered By: Emiliano Cisse on 03-02-2025 Nucleated RBC/100 WBC (Bld) [Ratio] 0 % 0-5 [facility] Organism identificationOrder ed By: Emiliano Cisse on 03-02-2025 Microorganism identified Cx Nom (Unsp spec) Negative Abnormal [facility] Partial Thromboplast Timeon 03-02-2025 aPTT Coag (Bld) [Time] 25.6 s Normal 24.1-36.2 [facility] Comment on above: Performed By: #### L 501.4021, L500.2500, L501.9520, L100.0100 #### [facility] [address] [place], [address] Platelet countOrdered By: Terry Cisse on 03-02-2025 Platelets (Bld) [#/Vol] 159 10*3/uL 150-450 [facility] Potassium measurement (mass/ volume)Ordered By: Emiliano Cisse on 03-02-2025 Potassium (Unsp spec) [Mass/Vol] 3.3 mmol/L 3.3-5.1 [facility] Protein Test strip Ql (U)Ord ered By: Emiliano Cisse on 03-02-2025 Protein Ql (U) 15 mg/dl High Negative [facility] Prothrombin Time w/INRon INR Coag (PPP) [Relative time] 1.0 {INR} Normal [facility] Comment on above: Performed By: #### L 501.4021, L500.2500, L501.9520, L100.0100 #### [facility] [address] [place], [place], [id number] PT Coag (PPP) [Time] 12.8 s Normal 11.7-14.9 [facility] Comment on above: Performed By: #### L 501.4021, L500.2500, L501.9536, L100.0100 #### [facility] [address] [place], [place], [id number] Prothrombin timeOrdered By: Emiliano Cisse on 03-02-2025 PT Coag (PPP) [Time] 12.8 s 11.7-14.9 [facility] RBC Auto (Bld) [#/Vol]Ordere d By: Emiliano Cisse on 03-02-2025 RBC (Bld) [#/Vol] 4.36 10*6/uL 4.2-5.4 [facility] Serum creatinine measurement (mass/volume)Ordered By: Emiliano Cisse on 03-02-2025 Creatinine [Mass/Vol] 0.72 mg/dL 0.70-1.20 [facility] Serum globulin measurementOr dered By: Emiliano Cisse on 03-02-2025 Globulin (S) [Mass/Vol] 3.1 g/dL 2.2-4.2 [facility] Serum glucose measurement (m ass/volume)Ordered By: Emiliano Cisse on 03-02-2025 Glucose [Mass/Vol] 110 mg/dL High 70-99 [facility] Serum or plasma alanine harding otransferase (ALT) measurementOrdered By: Emiliano Cisse on 03-02-2025 ALT [Catalytic activity/Vol] 24 U/L <35 [facility] Serum or plasma albumin gómez urement (mass/volume)Ordered By: Emiliano Cisse on 03-02-2025 Albumin [Mass/Vol] 4.2 g/dL 3.4-4.8 [facility] Serum or plasma albumin/glob ulin mass ratioOrdered By: Emiliano Cisse on 03-02-2025 Albumin/Globulin [Mass ratio] 1.4 {ratio} 0.9-2.4 [facility] Serum or plasma alkaline cassidy sphatase measurementOrdered By: Emiliano Cisse on 03-02-2025 ALP [Catalytic activity/Vol] 116 U/L High 35-104 [facility] Serum or plasma calcium gómez urement (mass/volume)Ordered By: Emiliano Cisse on 03-02-2025 Calcium [Mass/Vol] 8.6 mg/dL 7.6-11.0 [facility] Serum or plasma urea nitroge n measurement (mass/volume)Ordered By: Emiliano Cisse on 03-02-2025 Urea nitrogen [Mass/Vol] 14 mg/dL 4-19 [facility] Sodium levelOrdered By: Dora Cisse on 03-02-2025 Sodium [Moles/Vol] 138 mmol/L 133-145 [facility] Squamous epithelial cells de tection in urine sediment by light microscopyOrdered By: Emiliano Cisse on 03-02-2025 Epithelial cells.squamous LM Ql (Urine sed) 5-10 SEEN /hpf 5-10 [facility] Total proteinOrdered By: Annia Cisse on 03-02-2025 Protein [Mass/Vol] 7.4 g/dL 5.9-8.4 [facility] Transitional cells detection in urine sediment by light microscopyOrdered By: Emiliano Cisse on 03-02-2025 Transitional cells LM Ql (Urine sed) 0-5 SEEN /hpf 0-5 [facility] Urinalysis, Completeon 03-02 EPI,SQUAMOUS 5-10 SEEN Normal 5-10 [facility] Comment on above: Order Comment: MANDEEP CTOR TO SPECIFY Performed By: #### L 501.4021, L500.2500, L501.9520, L100.0100 #### [facility] [address] [place], [address] EPI,TRANSITION 0-5 SEEN Normal 0-5 [facility] Comment on above: Order Comment: MANDEEP CTOR TO SPECIFY Performed By: #### L 501.4021, L500.2500, L501.9520, L100.0100 #### [facility] [address] [place], [address] Mucus Ql (Urine sed) 1+ /hpf Normal [facility] Comment on above: Order Comment: MANDEEP CTOR TO SPECIFY Performed By: #### L 501.4021, L500.2500, L501.9520, L100.0100 #### [facility] [address] [place], [address] WBC 0-5 SEEN Normal 0-5 [facility] Comment on above: Order Comment: MANDEEP CTOR TO SPECIFY Performed By: #### L 501.4021, L500.2500, L501.9520, L100.0100 #### [facility] [address] [place], [address] RBC 5-10 SEEN Normal 0-5 [facility] Comment on above: Order Comment: MANDEEP CTOR TO SPECIFY Performed By: #### L 501.4021, L500.2500, L501.9520, L100.0100 #### [facility] [address] [place], [address] BACTERIA 0 SEEN Normal None Seen [facility] Comment on above: Order Comment: MANDEEP CTOR TO SPECIFY Performed By: #### L 501.4021, L500.2500, L501.9520, L100.0100 #### [facility] [address] [place], [address] Urine clarityOrdered By: Annia Cisse on 03-02-2025 Clarity (U) Clear Clear [facility] Urine color determinationOrd ered By: Emiliano Cisse on 03-02-2025 Color (U) Straw Yellow [facility] Urine cultureOrdered By: Annia Cisse on 03-02-2025 Bacteria identified Cx Nom (U) Positive Abnormal [facility] Urine glucose detectionOrder ed By: Emiliano Cisse on 03-02-2025 Glucose Ql (U) Normal mg/dl Normal [facility] Urine leukocyte esterase det ection by dipstickOrdered By: Emiliano Cisse on 03-02-2025 Leukocyte esterase Test strip Ql (U) Negative Negative [facility] Urine pHOrdered By: Emiliano jeff on 03-02-2025 pH (U) 6.0 [pH] 5.0 - 8.0 [facility] Urine sediment bacteria coun t by microscopy (number/high power field)Ordered By: Emiliano Cisse on 03-02-2025 Bacteria LM.HPF (Urine sed) [#/Area] 0 /[HPF] None Seen [facility] Urine specific gravity measu rementOrdered By: Emiliano Cisse on 03-02-2025 Specific gravity (U) [Rel density] 1.015 1.002-1.030 [facility] Urine urobilinogen measureme ntOrdered By: Emiliano Cisse on 03-02-2025 Urobilinogen Ql (U) Normal mg/dl Normal [facility] White blood cell (WBC) count Ordered By: Emiliano Cisse on 03-02-2025 WBC (Bld) [#/Vol] 8.6 10*3/uL 4.4-11.0 [facility] White blood cell countOrdere d By: Emiliano Cisse on 03-02-2025 White blood cell count 0-5 SEEN /hpf 0-5 [facility] Absolute lymphocyte countOrd ered By: Esa Thacker on 02-11-2025 Lymphocytes Auto (Unsp spec) [#/Vol] 2.22 10*3/uL 0.83-4.51 [facility] Absolute neutrophil countOrd ered By: Esa Thacker on 02-11-2025 Neutrophils (Bld) [#/Vol] 7.5 10*3/uL 2.0-7.7 [facility] Anion gap in Serum or Plasma Ordered By: Esa Thacker on 02-11-2025 Anion gap [Moles/Vol] 11 mmol/L 01-11 [facility] Automated lymphocyte count a s percentage of total leukocytesOrdered By: Esa Thacker on 02-11-2025 Lymphocytes/100 WBC Auto (Unsp spec) 20.7 % [facility] BUN/creatinine ratioOrdered By: Esa Thacker on 02-11-2025 Urea nitrogen/Creatinine [Mass ratio] 16.5 mg/mg - [facility] Basic Metabolic Profile (BMP )on 02-11-2025 BUN/CRE 16.5 RATIO Normal 10-20 [facility] Comment on above: Performed By: #### L 501.4021, L500.2500, L501.9520, L100.0100 #### [facility] [address] [place], [address] Calcium [Mass/Vol] 8.6 mg/dL Normal 7.6-11.0 [facility] Comment on above: Performed By: #### L 501.4021, L500.2500, L501.9520, L100.0100 #### [facility] [address] [place], [address] Chloride [Moles/Vol] 104 mmol/L Normal 98-108 [facility] Comment on above: Performed By: #### L 501.4021, L500.2500, L501.9520, L100.0100 #### [facility] [address] [place], [address] CO2 [Moles/Vol] 26.6 mmol/L Normal 21.0-32.0 [facility] Comment on above: Performed By: #### L 501.4021, L500.2500, L501.9520, L100.0100 #### [facility] [address] [place], [address] Creatinine [Mass/Vol] 0.56 mg/dL Low 0.70-1.20 [facility] Comment on above: Performed By: #### L 501.4021, L500.2500, L501.9520, L100.0100 #### [facility] [address] [place], [address] ECRCL 131.77 ml/min Normal 50-250 [facility] Comment on above: Performed By: #### L 501.4021, L500.2500, L501.9520, L100.0100 #### [facility] [address] [place], [address] GAP 11 Normal 5-15 [facility] Comment on above: Performed By: #### L 501.4021, L500.2500, L501.9520, L100.0100 #### [facility] [address] [place], [address] GFR/1.73 sq M.predicted among non-blacks MDRD (S/P/Bld) [Vol rate/Area] 104 mL/min/{1.73_m2} Normal >60 [facility] Comment on above: Result Comment: mL/m in/1.73m2 CKD-EPI Creatinine Equation (2020) Performed By: #### L 501.4021, L500.2500, L501.9520, L100.0100 #### [facility] [address] [place], [address] Glucose [Mass/Vol] 75 mg/dL Normal 70-99 [facility] Comment on above: Performed By: #### L 501.4021, L500.2500, L501.9520, L100.0100 #### [facility] [address] [place], [address] Potassium [Moles/Vol] 3.1 mmol/L Low 3.3-5.1 [facility] Comment on above: Performed By: #### L 501.4021, L500.2500, L501.9520, L100.0100 #### [facility] [address] [place], [address] Sodium [Moles/Vol] 142 mmol/L Normal 133-145 [facility] Comment on above: Performed By: #### L 501.4021, L500.2500, L501.9520, L100.0100 #### [facility] [address] [place], [address] Urea nitrogen [Mass/Vol] 9 mg/dL Normal 4-19 [facility] Comment on above: Performed By: #### L 501.4021, L500.2500, L501.9520, L100.0100 #### [facility] [address] [place], [address] Basophil percentageOrdered B y: Esa Thacker on 02-11-2025 Basophils/100 WBC (Bld) 0.5 % 0-1 [facility] CBC W/Diff, Automatedon 01-28 Absolute Lymph 2.22 X10 3/uL Normal 0.83-4.51 [facility] Comment on above: Performed By: #### L 501.4021, L500.2500, L501.9520, L100.0100 #### [facility] [address] [place], [address] Absolute Neut 7.5 X10 3/uL Normal 2.0-7.7 [facility] Comment on above: Performed By: #### L 501.4021, L500.2500, L501.9520, L100.0100 #### [facility] [address] [place], [address] Basophils/100 WBC (Bld) 0.5 % Normal 0-1 [facility] Comment on above: Performed By: #### L 501.4021, L500.2500, L501.9520, L100.0100 #### [facility] [address] [place], [address] Eosinophils/100 WBC (Bld) 2.5 % Normal 0-5 [facility] Comment on above: Performed By: #### L 501.4021, L500.2500, L501.9520, L100.0100 #### [facility] [address] [place], [address] Erythrocyte distribution width (RBC) [Ratio] 14.6 % Normal 11.6-14.6 [facility] Comment on above: Performed By: #### L 501.4021, L500.2500, L501.9520, L100.0100 #### [facility] [address] [place], [address] Hematocrit (Bld) [Volume fraction] 39.0 % Normal 37-47 [facility] Comment on above: Performed By: #### L 501.4021, L500.2500, L501.9520, L100.0100 #### [facility] [address] [place], [address] Hemoglobin (Bld) [Mass/Vol] 13.1 g/dL Normal 12.0-15.0 [facility] Comment on above: Performed By: #### L 501.4021, L500.2500, L501.9520, L100.0100 #### [facility] [address] [place], [address] IG% 0.400 Normal 0.0-0.9 [facility] Comment on above: Result Comment: IG% - Immature Granulocytes (promyelocytes, myelocytes and metamyelocytes) > 1% indicates that a LEFT SHIFT is Present. Performed By: #### L 501.4021, L500.2500, L501.9520, L100.0100 #### [facility] [address] [place], [address] Lymphocytes/100 WBC (Bld) 20.7 % Normal 19-41 [facility] Comment on above: Performed By: #### L 501.4021, L500.2500, L501.9520, L100.0100 #### [facility] [address] [place], [address] MCH (RBC) [Entitic mass] 31.1 pg Normal 27.0-32.0 [facility] Comment on above: Performed By: #### L 501.4021, L500.2500, L501.9520, L100.0100 #### [facility] [address] [place], [address] MCHC (RBC) [Mass/Vol] 33.6 g/dL Normal 32-36 [facility] Comment on above: Performed By: #### L 501.4021, L500.2500, L501.9520, L100.0100 #### [facility] [address] [place], [address] MCV (RBC) [Entitic vol] 92.6 fL Normal 81-99 [facility] Comment on above: Performed By: #### L 501.4021, L500.2500, L501.9520, L100.0100 #### [facility] [address] [place], [address] Monocytes/100 WBC (Bld) 6.1 % Normal 0-10 [facility] Comment on above: Performed By: #### L 501.4021, L500.2500, L501.9520, L100.0100 #### [facility] [address] [place], [address] Neutrophils/100 WBC (Bld) 69.8 % Normal 47-70 [facility] Comment on above: Performed By: #### L 501.4021, L500.2500, L501.9520, L100.0100 #### [facility] [address] [place], [address] Nucleated RBC (Bld) [#/Vol] 0 10*3/uL Normal 0-5 [facility] Comment on above: Performed By: #### L 501.4021, L500.2500, L501.9520, L100.0100 #### [facility] [address] [place], [address] Platelet mean volume (Bld) [Entitic vol] 11.6 fL Normal 6.2-12.0 [facility] Comment on above: Performed By: #### L 501.4021, L500.2500, L501.9520, L100.0100 #### [facility] [address] [place], [address] Platelets (Bld) [#/Vol] 151 10*3/uL Normal 150-450 [facility] Comment on above: Performed By: #### L 501.4021, L500.2500, L501.9520, L100.0100 #### [facility] [address] [place], [address] RBC (Bld) [#/Vol] 4.21 10*6/uL Normal 4.2-5.4 [facility] Comment on above: Performed By: #### L 501.4021, L500.2500, L501.9520, L100.0100 #### [facility] [address] [place], [address] RDW SD 49.1 fl High 35.1-43.9 [facility] Comment on above: Performed By: #### L 501.4021, L500.2500, L501.9520, L100.0100 #### [facility] [address] [place], [address] WBC (Bld) [#/Vol] 10.7 10*3/uL Normal 4.4-11.0 [facility] Comment on above: Performed By: #### L 501.4021, L500.2500, L501.9520, L100.0100 #### [facility] [address] [place], [address] Carbon dioxide, total [Moles /volume] in Central venous bloodOrdered By: Esa Thacker on 02-11-2025 CO2 [Moles/Vol] 26.6 mmol/L 21.0-32.0 [facility] Chest PA and Lateralon 02-11 Chest PA and Lateral [facility] Services [address] [place] [address] Chest PA and Lateral MR#: [id number] Acct: [id number] Name: BOAZ GOLDSTEIN Rep #: [id number] : 1965 F 59 From: Clara Payne PCP: Dr. Hu Hairston MD Status: [facility] ER Study: Chest PA and Lateral Date of Exam: 02/11/25 Exam# [id number] Ordering Dr: Esa Thacker DO PROCEDURE: CHEST PA AND LATERAL 02/11/2025 REASON FOR EXAM: DYSPNEA TECHNIQUE: CHEST PA AND LATERAL COMPARISON: 01/26/2025 FINDINGS: Cardiomediastinal silhouette is within normal limits. Mild symmetric bibasilar interstitial prominence. No focal consolidation, pleural effusion or sizable pneumothorax. RAD/Chest PA and Lateral IMPRESSION: No focal airspace abnormality. Reading Location: [facility] CC: Dr. Esa Thacker DO; Dr. Hu Hairston MD Shipping Supervisor: Signed Normal [facility] Chloride assayOrdered By: Valeriy Thacker on 02-11-2025 Chloride [Moles/Vol] 104 mmol/L 98-108 [facility] Emergency Department Summary on 02-11-2025 Emergency Department Summary [facility] Medical Records Department [address] [place] [id number] Emergency Department Summary 02/11/25 MR#: [id number] Acct: [id number] Name: BOAZ GOLDSTEIN Rep #: [id number] : 1965 59 From: Esa Thacker DO PCP: Dr. Hu Hairston MD Status:[facility] ER Location: ED HPI History of Present Illness Chief Complaint: Shortness of Breath Informant: patient Onset/Context/Timin g Onset: Today Context: sudden Timing: Continuous Quality: Positive for Wheezing Worsened by: Coughing Relieved by: Albuterol Associated Symptoms cough, sore throat and yellow sputum; Negative for rhinorrhea, post nasal drip, ear pain, fever, chills, sweats, clear sputum, white sputum or green sputum Narrative Narrative: Patient presents with shortness of breath and cough that became worse today. Patient states it began rather suddenly. Patient states she felt herself wheezing. Patient states she was coughing up some yellow sputum. Patient denies any fevers or chills. Patient states her throat felt like it was getting tight. Patient also admits to some tightness and wheezing in her chest. Patient called EMS. Patient was given a DuoNeb aerosol by EMS. Patient states this started to help. [facility] Medical History Alcohol use Abscessed [...] .Route 5 Unknown Rx .COMPLEX #24 tabs prednisone 20 mg tablet 60 mg (3 x 20 mg) PO DAILY #15 Unknown Rx TABLETS Allergy/AdvReac Type Severity Reaction Status Date / [...] History of delivery Social History Smoking Status: Light Smoker (<10/day) second hand exposure: Yes quit status: not considering quitting alcohol intake: never substance use type: does not use caffeine: Yes what type of physical activity do you participate in: none seatbelt use: always do you feel safe at home: Yes additional social history: Employed [employer] single ROS ROS ED Constitutional Constitutional ED: Denies chills or fever(s) Eyes Eyes: Denies blurry vision or change in vision ENT ENT ED: Reports sore throat; Denies rhinorrhea Cardiovascular Cardiovascular: Reports chest pain; Denies palpitations Respiratory/Chest Respiratory/Chest: Reports cough, dyspnea and sputum Gastrointestinal Gastrointestinal: Denies nausea or vomiting Genitourinary Genitourinary ED: Denies dysuria or hematuria Musculoskeletal Musculoskeletal: Denies back pain or neck pain Integumentary Denies abscess or rash Neurologic Neurologic: Denies headache(s) or weakness Allergic/Immunologi c Allergic/Immunologi c ED: Denies mouth swelling or urticaria EXAM Physical Exam Const Vital Signs: 02/11/25 17:56 02/11/25 17:56 02/11/25 18:00 Temperature 97.7 F L 97.7 F L Temperature Source Oral Temporal Pulse Rate 105 H 105 H Respiratory Rate 25 H 23 H Respiratory Effort Short of Breath Respiratory Depth Normal Respiratory Pattern Normal Blood Pressure 142/68 H 142/68 H Blood Pressure Mean 92 92 Pulse Ox 93 92 Oxygen Delivery Method Room Air Room Air Room Air (more content not included)... Normal [facility] Eosinophil percentageOrdered By: Esa Thacker on 02-11-2025 Eosinophils/100 WBC (Bld) 2.5 % 0-5 [facility] Erythrocyte distribution wid th ratioOrdered By: Esa Thacker on 02-11-2025 Erythrocyte distribution width (RBC) [Ratio] 14.6 % 11.6-14.6 [facility] Erythrocyte distribution wid th standard deviationOrdered By: Esa Thacker on 02-11-2025 Erythrocyte distribution width (RBC) [Ratio] 49.1 fl High 35.1-43.9 [facility] Glomerular filtration rate ( GFR) estimation/1.73 sq m using serum, plasma, or whole bOrdered By: Esa Thacker on 02-11-2025 GFR/1.73 sq M.predicted among non-blacks MDRD (S/P/Bld) [Vol rate/Area] 104 mL/min/{1.73_m2} >60 [facility] Comment on above: mL/min/1.73m2 CKD-EP I Creatinine Equation (2020) Hematocrit Auto (Bld) [Volum e fraction]Ordered By: Esa Thacker on 02-11-2025 Hematocrit (Bld) [Volume fraction] 39.0 % 37-47 [facility] Hemoglobin measurementOrdere d By: Esa Thacker on 02-11-2025 Hemoglobin (Bld) [Mass/Vol] 13.1 g/dL 12.0-15.0 [facility] Immature granulocytes/100 WB C Auto (Bld)Ordered By: Esa Thacker on 02-11-2025 Immature granulocytes/100 WBC (Bld) 0.400 % 0.0-0.9 [facility] Comment on above: IG% - Immature Granu locytes (promyelocytes, myelocytes and metamyelocytes) > 1% indicates that a LEFT SHIFT is Present. MCV (mean corpuscular volume ) determinationOrdered By: Esa Thacker on 02-11-2025 MCV (RBC) [Entitic vol] 92.6 fL 81-99 [facility] Mean corpuscular hemoglobin (MCH) determinationOrdered By: Esa Thacker on 02-11-2025 MCH (RBC) [Entitic mass] 31.1 pg 27.0-32.0 [facility] Mean corpuscular hemoglobin concentration (MCHC) determinationOrdered By: Esa Thacker on 02-11-2025 MCHC (RBC) [Mass/Vol] 33.6 g/dL 32-36 [facility] Mean platelet volume determi nationOrdered By: Esa Thacker on 02-11-2025 Platelet mean volume (Bld) [Entitic vol] 11.6 fL 6.2-12.0 [facility] Monocyte percentageOrdered B y: Esa Thacker on 02-11-2025 Monocytes/100 WBC (Bld) 6.1 % 0-10 [facility] Neutrophil percentageOrdered By: Esa Thacker on 02-11-2025 Neutrophils/100 WBC (Bld) 69.8 % 47-70 [facility] Nucleated red blood cell per centageOrdered By: Esa Thacker on 02-11-2025 Nucleated RBC/100 WBC (Bld) [Ratio] 0 % 0-5 [facility] Platelet countOrdered By: Valeriy Thacker on 02-11-2025 Platelets (Bld) [#/Vol] 151 10*3/uL 150-450 [facility] Potassium measurement (mass/ volume)Ordered By: Esa Thacker on 02-11-2025 Potassium (Unsp spec) [Mass/Vol] 3.1 mmol/L Low 3.3-5.1 [facility] RBC Auto (Bld) [#/Vol]Ordere d By: Esa Thacker on 02-11-2025 RBC (Bld) [#/Vol] 4.21 10*6/uL 4.2-5.4 [facility] Serum creatinine measurement (mass/volume)Ordered By: Esa Thacker on 02-11-2025 Creatinine [Mass/Vol] 0.56 mg/dL Low 0.70-1.20 [facility] Serum glucose measurement (m ass/volume)Ordered By: Esa Thacker on 02-11-2025 Glucose [Mass/Vol] 75 mg/dL 70-99 [facility] Serum or plasma calcium gómez urement (mass/volume)Ordered By: Esa Thacker on 02-11-2025 Calcium [Mass/Vol] 8.6 mg/dL 7.6-11.0 [facility] Serum or plasma urea nitroge n measurement (mass/volume)Ordered By: Esa Thacker on 02-11-2025 Urea nitrogen [Mass/Vol] 9 mg/dL 4-19 [facility] Sodium levelOrdered By: Esa Thacker on 02-11-2025 Sodium [Moles/Vol] 142 mmol/L 133-145 [facility] White blood cell (WBC) count Ordered By: Esa Thacker on 02-11-2025 WBC (Bld) [#/Vol] 10.7 10*3/uL 4.4-11.0 [facility] Absolute lymphocyte countOrd ered By: Carlito Lewis on 01-26-2025 Lymphocytes Auto (Unsp spec) [#/Vol] 2.68 10*3/uL 0.83-4.51 [facility] Absolute neutrophil countOrd ered By: Carlito Lewis on 01-26-2025 Neutrophils (Bld) [#/Vol] 6.3 10*3/uL 2.0-7.7 [facility] Anion gap in Serum or Plasma Ordered By: Carlito Lewis on 01-26-2025 Anion gap [Moles/Vol] 10 mmol/L 5-15 [facility] Automated lymphocyte count a s percentage of total leukocytesOrdered By: Carlito Lewis on 01-26-2025 Lymphocytes/100 WBC Auto (Unsp spec) 27.1 % - [facility] BUN/creatinine ratioOrdered By: Carlito Lewsi on 01-26-2025 Urea nitrogen/Creatinine [Mass ratio] 22.9 mg/mg High 10- [facility] Basic Metabolic Profile (BMP )on 01-26-2025 BUN/CRE 22.9 RATIO High 10- [facility] Comment on above: Performed By: #### L 499.0043 #### [facility] [address] [place], [address] Calcium [Mass/Vol] 9.0 mg/dL Normal 7.6-11.0 [facility] Comment on above: Performed By: #### L [id number] #### [facility] [address] [place], [address] Chloride [Moles/Vol] 103 mmol/L Normal 98-108 [facility] Comment on above: Performed By: #### L [id number] #### [facility] [address] [place], [address] CO2 [Moles/Vol] 25.3 mmol/L Normal 21.0-32.0 [facility] Comment on above: Performed By: #### L [id number] #### [facility] [address] [place], [address] Creatinine [Mass/Vol] 0.61 mg/dL Low 0.70-1.20 [facility] Comment on above: Performed By: #### L [id number] #### [facility] [address] [place], [address] ECRCL 119.78 ml/min Normal 50-250 [facility] Comment on above: Performed By: #### L [id number] #### [facility] [address] [place], [address] GAP 10 Normal 5-15 [facility] Comment on above: Performed By: #### L 499.0043 #### [facility] [address] [place], [address] GFR/1.73 sq M.predicted among non-blacks MDRD (S/P/Bld) [Vol rate/Area] 102 mL/min/{1.73_m2} Normal >60 [facility] Comment on above: Result Comment: mL/m in/1.73m2 CKD-EPI Creatinine Equation (2020) Performed By: #### L 499.0043 #### [facility] [address] [place], [address] Glucose [Mass/Vol] 105 mg/dL High 70-99 [facility] Comment on above: Performed By: #### L 499.0043 #### [facility] [address] [place], [address] Potassium [Moles/Vol] 3.5 mmol/L Normal 3.3-5.1 [facility] Comment on above: Performed By: #### L [id number] #### [facility] [address] [place], [address] Sodium [Moles/Vol] 138 mmol/L Normal 133-145 [facility] Comment on above: Performed By: #### L 499.0043 #### [facility] [address] [place], [address] Urea nitrogen [Mass/Vol] 14 mg/dL Normal 4-19 [facility] Comment on above: Performed By: #### L 499.0043 #### [facility] [address] [place], [address] Basophil percentageOrdered B y: Carlito Lewis on 01-26-2025 Basophils/100 WBC (Bld) 0.4 % 0-1 [facility] CBC W/Diff, Automatedon 12-30-2024 Absolute Lymph 2.68 X10 3/uL Normal 0.83-4.51 [facility] Comment on above: Performed By: #### L [id number] #### [facility] [address] [place], [address] Absolute Neut 6.3 X10 3/uL Normal 2.0-7.7 [facility] Comment on above: Performed By: #### L [id number] #### [facility] [address] [place], [address] Basophils/100 WBC (Bld) 0.4 % Normal 0-1 [facility] Comment on above: Performed By: #### L [id number] #### [facility] [address] [place], [address] Eosinophils/100 WBC (Bld) 2.6 % Normal 0-5 [facility] Comment on above: Performed By: #### L 499.0043 #### [facility] [address] [place], [address] Erythrocyte distribution width (RBC) [Ratio] 13.9 % Normal 11.6-14.6 [facility] Comment on above: Performed By: #### L 499.0043 #### [facility] [address] [place], [address] Hematocrit (Bld) [Volume fraction] 41.8 % Normal 37-47 [facility] Comment on above: Performed By: #### L 499.0043 #### [facility] [address] [place], [address] Hemoglobin (Bld) [Mass/Vol] 14.1 g/dL Normal 12.0-15.0 [facility] Comment on above: Performed By: #### L 499.0043 #### [facility] [address] [place], [address] IG% 0.400 Normal 0.0-0.9 [facility] Comment on above: Result Comment: IG% - Immature Granulocytes (promyelocytes, myelocytes and metamyelocytes) > 1% indicates that a LEFT SHIFT is Present. Performed By: #### L 499.0043 #### [facility] [address] [place], [address] Lymphocytes/100 WBC (Bld) 27.1 % Normal 19-41 [facility] Comment on above: Performed By: #### L [id number] #### [facility] [address] [place], [address] MCH (RBC) [Entitic mass] 31.0 pg Normal 27.0-32.0 [facility] Comment on above: Performed By: #### L [id number] #### [facility] [address] [place], [address] MCHC (RBC) [Mass/Vol] 33.7 g/dL Normal 32-36 [facility] Comment on above: Performed By: #### L [id number] #### [facility] [address] [place], [address] MCV (RBC) [Entitic vol] 91.9 fL Normal 81-99 [facility] Comment on above: Performed By: #### L [id number] #### [facility] [address] [place], [address] Monocytes/100 WBC (Bld) 6.1 % Normal 0-10 [facility] Comment on above: Performed By: #### L [id number] #### [facility] [address] [place], [address] Neutrophils/100 WBC (Bld) 63.4 % Normal 47-70 [facility] Comment on above: Performed By: #### L 499.0043 #### [facility] [address] [place], [address] Nucleated RBC (Bld) [#/Vol] 0 10*3/uL Normal 0-5 [facility] Comment on above: Performed By: #### L 499.0043 #### [facility] [address] [place], [address] Platelet mean volume (Bld) [Entitic vol] 11.4 fL Normal 6.2-12.0 [facility] Comment on above: Performed By: #### L 499.0043 #### [facility] [address] [place], [address] Platelets (Bld) [#/Vol] 177 10*3/uL Normal 150-450 [facility] Comment on above: Performed By: #### L 499.0043 #### [facility] [address] [place], [address] RBC (Bld) [#/Vol] 4.55 10*6/uL Normal 4.2-5.4 [facility] Comment on above: Performed By: #### L 499.0043 #### [facility] [address] [place], [address] RDW SD 47.5 fl High 35.1-43.9 [facility] Comment on above: Performed By: #### L 499.0043 #### [facility] [address] [place], [address] WBC (Bld) [#/Vol] 9.9 10*3/uL Normal 4.4-11.0 [facility] Comment on above: Performed By: #### L 499.0043 #### [facility] [address] [place], [place], [address] Carbon dioxide, total [Moles /volume] in Central venous bloodOrdered By: Carlito Lewis on 01-26-2025 CO2 [Moles/Vol] 25.3 mmol/L 21.0-32.0 [facility] Chest 1 View (Portable)on Chest 1 View (Portable) [facility] Imaging Services [address] [place] [address] Chest 1 View (Portable) MR#: [id number] Acct: [id number] Name: BOAZ GOLDSTEIN Rep #: [id number] : 1965 F 59 From: Jermaine brooks MD PCP: Dr. Hu Hairston MD Status: REG ER Study: Chest 1 View (Portable) Date of Exam: 01/26/25 Exam# [id number] Ordering Dr: Carlito Lewis DO PROCEDURE: CHEST [...] (Portable) IMPRESSION: No Acute Findings. Reading Location: [facility] CC: Dr. Carlito Lewis DO; Dr. Hu Hairston MD Shipping Supervisor: Signed Normal [facility] Chloride assayOrdered By: Chidi Lewis on 01-26-2025 Chloride [Moles/Vol] 103 mmol/L 98-108 [facility] Emergency Department Summary on 01-26-2025 Emergency Department Summary [facility] Medical Records Department [address] [place] [address] Emergency Department Summary 01/26/25 MR#: [id number] Acct: [id number] Name: BOAZ GOLDSTEIN Rep #: [id number] : 1965 59 From: Carlito Lewis DO PCP: Dr. Hu Hairston MD Status:DEP ER Location: ED HPI History [...] morning was the tightness of the throat. [facility] Medical History Alcohol use Abscessed [...] Endocrine Endocrinology: Denies polydipsia, polyphagia or polyuria Allergic/Immunologi c Allergic/Immunologi c ED: Denies mouth swelling, tongue swelling or [...] 98 Oxygen (more content not included)... Normal [facility] Eosinophil percentageOrdered By: Carlito Lewis on 01-26-2025 Eosinophils/100 WBC (Bld) 2.6 % 0-5 [facility] Erythrocyte distribution wid th ratioOrdered By: Carlito Lewis on 01-26-2025 Erythrocyte distribution width (RBC) [Ratio] 13.9 % 11.6-14.6 [facility] Erythrocyte distribution wid th standard deviationOrdered By: Carlito Lewis on 01-26-2025 Erythrocyte distribution width (RBC) [Ratio] 47.5 fl High 35.1-43.9 [facility] Glomerular filtration rate ( GFR) estimation/1.73 sq m using serum, plasma, or whole bOrdered By: Carlito Lewis on 01-26-2025 GFR/1.73 sq M.predicted among non-blacks MDRD (S/P/Bld) [Vol rate/Area] 102 mL/min/{1.73_m2} >60 [facility] Comment on above: mL/min/1.73m2 CKD-EP I Creatinine Equation (2020) Hematocrit Auto (Bld) [Volum e fraction]Ordered By: Carlito Lewis on 01-26-2025 Hematocrit (Bld) [Volume fraction] 41.8 % 37-47 [facility] Hemoglobin measurementOrdere d By: Carlito Lewis on 01-26-2025 Hemoglobin (Bld) [Mass/Vol] 14.1 g/dL 12.0-15.0 [facility] Immature granulocytes/100 WB C Auto (Bld)Ordered By: Carlito Lewis on 01-26-2025 Immature granulocytes/100 WBC (Bld) 0.400 % 0.0-0.9 [facility] Comment on above: IG% - Immature Granu locytes (promyelocytes, myelocytes and metamyelocytes) > 1% indicates that a LEFT SHIFT is Present. MCV (mean corpuscular volume ) determinationOrdered By: Carlito Lewis on 01-26-2025 MCV (RBC) [Entitic vol] 91.9 fL 81-99 [facility] Mean corpuscular hemoglobin (MCH) determinationOrdered By: Carlito Lewis on 01-26-2025 MCH (RBC) [Entitic mass] 31.0 pg 27.0-32.0 [facility] Mean corpuscular hemoglobin concentration (MCHC) determinationOrdered By: Carlito Lewis on 01-26-2025 MCHC (RBC) [Mass/Vol] 33.7 g/dL 32-36 [facility] Mean platelet volume determi nationOrdered By: Carlito Lewis on 01-26-2025 Platelet mean volume (Bld) [Entitic vol] 11.4 fL 6.2-12.0 [facility] Monocyte percentageOrdered B y: Carlito Lewis on 01-26-2025 Monocytes/100 WBC (Bld) 6.1 % 0-10 [facility] Neutrophil percentageOrdered By: Carlito Lewis on 01-26-2025 Neutrophils/100 WBC (Bld) 63.4 % 47-70 [facility] Nucleated red blood cell per centageOrdered By: Carlito Lewis on 01-26-2025 Nucleated RBC/100 WBC (Bld) [Ratio] 0 % 0-5 [facility] Platelet countOrdered By: Chidi Lewis on 01-26-2025 Platelets (Bld) [#/Vol] 177 10*3/uL 150-450 [facility] Potassium measurement (mass/ volume)Ordered By: Carlito Lewis on 01-26-2025 Potassium (Unsp spec) [Mass/Vol] 3.5 mmol/L 3.3-5.1 [facility] RBC Auto (Bld) [#/Vol]Ordere d By: Carlito Lewis on 01-26-2025 RBC (Bld) [#/Vol] 4.55 10*6/uL 4.2-5.4 [facility] Serum creatinine measurement (mass/volume)Ordered By: Carlito Lewis on 01-26-2025 Creatinine [Mass/Vol] 0.61 mg/dL Low 0.70-1.20 [facility] Serum glucose measurement (m ass/volume)Ordered By: Carlito Lewis on 01-26-2025 Glucose [Mass/Vol] 105 mg/dL High 70-99 [facility] Serum or plasma calcium gómez urement (mass/volume)Ordered By: Carlito Lewis on 01-26-2025 Calcium [Mass/Vol] 9.0 mg/dL 7.6-11.0 [facility] Serum or plasma urea nitroge n measurement (mass/volume)Ordered By: Carlito Lewis on 01-26-2025 Urea nitrogen [Mass/Vol] 14 mg/dL 4-19 [facility] Sodium levelOrdered By: Rosendo Lewis on 01-26-2025 Sodium [Moles/Vol] 138 mmol/L 133-145 [facility] White blood cell (WBC) count Ordered By: Carlito Lewis on 01-26-2025 WBC (Bld) [#/Vol] 9.9 10*3/uL 4.4-11.[address] [facility] [address] THORAX SCREENING W/O CONT RASTon 12-25-2024 [...] not evaluated in detail. Emphysema and multifocal atelectasis/scarrin g seen. Irregular scarring seen in both lung [...] 12/25/2024 9:44:49 AM Ordering Provider: CLARA Moreira [facility] Comprehensive metabolic 2000 panelon 09-11-2024 Albumin [Mass/Vol] 4.3 g/dL Normal 3.9-4.9 [facility] Comment on above: Order Comment: Andrés marcelo Type: BLOOD SPECIMEN Ordering Facility: [facility] Address: [address] [place] [address] Performed By: #### 3 024-7, 28952-9, 305-0, 06518-3 #### [facility] CLIA [id number] [address] [place] [address] [place] ALP [Catalytic activity/Vol] 132 U/L High 34-123 [facility] Comment on above: Order Comment: Andrés marcelo Type: BLOOD SPECIMEN Ordering Facility: [facility] Address: [address] [place] [address] Performed By: #### 3 024-7, 20768-9, 305-0, 10570-7 #### [facility] CLIA [id number] [address] [place], [place] [id number] [place] ALT [Catalytic activity/Vol] 14 U/L Normal 7-38 [facility] Comment on above: Order Comment: Andrés marcelo Type: BLOOD SPECIMEN Ordering Facility: [facility] Address: [address] [place] [address] Performed By: #### 3 024-7, 65929-5, 3051-0, 50152-7 #### [facility] CLIA [id number] [address] [place] Anion gap [Moles/Vol] 11 mmol/L Normal 8-15 [facility] Comment on above: Order Comment: Speci men Type: BLOOD SPECIMEN Ordering Facility: [facility] Address: [facility] [address] [place] [address] Performed By: #### 3 024-7, 72658-5, 3050-0, 82640-9 #### [facility] CLIA [id number] [address] [place] [address] [place] AST [Catalytic activity/Vol] 16 U/L Normal 13-35 [facility] Comment on above: Order Comment: Speci men Type: BLOOD SPECIMEN Ordering Facility: [facility] Address: [facility] [address] [place] [address] Performed By: #### 3 024-7, 31857-7, 3050-0, #### [facility] CLIA [id number] [address] [place], [place] [id number] [place] Bilirubin [Mass/Vol] 0.3 mg/dL Normal 0.2-1.3 [facility] Comment on above: Order Comment: Speci men Type: BLOOD SPECIMEN Ordering Facility: [facility] Address: [facility] [place] [address] Performed By: #### 3 024-7, 25616-5, 3050-0, #### [facility] CLIA [id number] [address] [place] [address] [place] Calcium [Mass/Vol] 9.1 mg/dL Normal 8.5-10.2 [facility] Comment on above: Order Comment: Speci men Type: BLOOD SPECIMEN Ordering Facility: [facility] Address: [facility] [place] [address] Performed By: #### 3 024-7, 65108-6, 3051-0, 57844-7 #### [facility] CLIA [id number] [address] [place] [address] [place] Chloride [Moles/Vol] 104 mmol/L Normal 98-107 [facility] Comment on above: Order Comment: Speci men Type: BLOOD SPECIMEN Ordering [facility]: [facility] [address] [place] [address] Performed By: #### 3 024-7, 49598-4, 3051-0, 63572-5 #### [facility] CLIA [id number] [address] [place] [address] [place] CO2 [Moles/Vol] 26 mmol/L Normal 22-30 [facility] Comment on above: Order Comment: Speci men Type: BLOOD SPECIMEN Ordering Facility: [facility] [address], [place] [address] Performed By: #### 3 024-7, 13261-4, 3051-0, 76720-5 #### [facility] CLIA [id number] [address] [place] [address] [place] Creatinine [Mass/Vol] 0.55 mg/dL Low 0.58-0.96 [facility] Comment on above: Order Comment: Speci men Type: BLOOD SPECIMEN Ordering Facility: [facility] Address: [facility] [address], [place] [address] Performed By: #### 3 024-7, 04462-2, 3051-0, 58619-1 #### [facility] [facility] CLIA [id number] [address] [place] [address] [place] Creatinine and Glomerular filtration rate.predicted panel (S/P/Bld) 104 mL/min/1.73m??? Normal >=60 [facility] Comment on above: Order Comment: Speci men Type: BLOOD SPECIMEN Ordering Facility: [facility] Address: [address], [place] [address] Result Comment: Amanda mated Glomerular Filtration Rate [...] reflect actual GFR. Performed By: #### 3 024-7, 02415-3, 3050-0, #### [facility] CLIA [id number] [address] [place] [address] [place] Glucose [Mass/Vol] 80 mg/dL Normal 74-99 [facility] Comment on above: Order Comment: Andrés marcelo Type: BLOOD SPECIMEN Ordering Facility: [facility] Address: [address], [place] [address] Result Comment: The [place] Diabetes Association (ADA) provides guidance for cutoff [...] Standards of Medical Care in Diabetes 2016, [place] Diabetes Association. Diabetes Care. 2016.39(Suppl 1). Performed By: #### 3 024-7, 82676-9, 3050-0, 65850-5 #### [facility] CLIA [id number] [address] [place] [address] [place] Potassium [Moles/Vol] 3.5 mmol/L Low 3.7-5.1 [facility] Comment on above: Order Comment: Andrés marcelo Type: BLOOD SPECIMEN Ordering Facility: [facility] Address: [address], [place] [address] Performed By: #### 3 024-7, 62911-7, 3051-0, 57039-6 #### [facility] CLIA [id number] [address] [place] [address] [place] Protein [Mass/Vol] 7.4 g/dL Normal 6.3-8.0 [facility] Comment on above: Order Comment: Speci men Type: BLOOD SPECIMEN Ordering Facility: [facility] Address: [address], [place] [address] Performed By: #### 3 024-7, 92784-3, 305-0, 95914-0 #### [facility] CLIA [id number] [address] [place] [address] [place] Sodium [Moles/Vol] 141 mmol/L Normal 136-144 [facility] Comment on above: Order Comment: Speci men Type: BLOOD SPECIMEN Ordering Facility: [facility] Address: [address], [place] [address] Performed By: #### 3 024-7, 78811-3, 305-0, 39702-0 #### [facility] CLIA [id number] [address] [place] [address] [place] Urea nitrogen [Mass/Vol] 13 mg/dL Normal 7-21 [facility] Comment on above: Order Comment: Speci men Type: BLOOD SPECIMEN Ordering Facility: [facility] Address: [address], [place] [address] Performed By: #### 3 024-7, 94375-1, 3051-0, 59465-1 #### [facility] CLIA [id number] [address] [place], [place] [id number] [place] Lipid 1996 panelon 5 Cholesterol [Mass/Vol] 146 mg/dL Normal <200 [facility] Comment on above: Order Comment: Speci men Type: BLOOD SPECIMEN Ordering Facility: [facility] Address: [address], [place] [address] Result Comment: <200 mg/dL, Desirable 200-239 mg/dL, Borderline high >239 mg/dL, High Performed By: #### 3 024-7, 09041-6, 305-0, 53796-6 #### [facility] CLIA [id number] [address] [address] [place] Cholesterol in HDL [Mass/Vol] 56 mg/dL Normal >39 [facility] Comment on above: Order Comment: Speci men Type: BLOOD SPECIMEN Ordering Facility: [facility] Address: [address], [place] [address] Result Comment: 40-5 9 mg/dL, Acceptable >59 mg/dL, High: Negative risk factor for coronary heart disease <40 mg/dL, Low: Positive risk factor for coronary heart disease Performed By: #### 3 024-7, 57858-2, 3050-0, #### [facility] CLIA [id number] [address] [address] [place] Cholesterol in LDL [Mass/Vol] 65 mg/dL Normal <100 [facility] Comment on above: Order Comment: Nilayi men Type: BLOOD SPECIMEN Ordering Facility: [facility] Address: [address], [place] [address] Result Comment: <100 mg/dL, Optimal 100-129 mg/dL, Near optimal/above optimal 130-159 mg/dL, Borderline high 160-189 mg/dL, High >189 mg/dL, Very high Secondary prevention optimal LDL Cholesterol levels are recommended to be < 70 mg/dL Performed By: #### 3 024-7, 12309-4, 305-0, 23873-2 #### [facility] CLIA [id number] [address] [address] [place] Cholesterol in LDL/Cholesterol in HDL [Mass ratio] 1.16 {ratio} Normal <2.54 [facility] Comment on above: Order Comment: Andrés marcelo Type: BLOOD SPECIMEN Ordering Facility: [facility] Address: [address], [place] [address] Result Comment: Irwin haynes: 1. National Cholesterol Education Program ATP III Guideline At-A-Glance Quick Desk Reference: National Heart, Lung, and Blood [place]. National Institutes of Health. 2001: NIH Publication No. 01-3305. 2. An International Atherosclerosis Society position paper: global recommendations for the management of dyslipidemia: executive summary, Atherosclerosis. 2014: 232(2):410-413. Performed By: #### 3 024-7, 79431-1, 3051-0, 60582-4 #### [facility] CLIA [id number] [address] [place] [address] [place] Cholesterol in VLDL [Mass/Vol] 25 mg/dL Normal <30 [facility] Comment on above: Order Comment: Andrés marcelo Type: BLOOD SPECIMEN Ordering Facility: [facility] Address: [address], [place] [address] Performed By: #### 3 024-7, 26789-6, 3051-0, 95131-9 #### [facility] CLIA [id number] [address] [place] [address] [place] Cholesterol non HDL [Mass/Vol] 90 mg/dL Normal <130 [facility] Comment on above: Order Comment: Andrés marcelo Type: BLOOD SPECIMEN Ordering Facility: [facility] Address: [address], [place] [address] Result Comment: <130 mg/dL, Optimal 130-159 mg/dL, Near optimal/above optimal 160-189 mg/dL, Borderline high 190-219 mg/dL, High >219 mg/dL, Very high Secondary prevention optimal non HDL Cholesterol levels are recommended to be <100 mg/dL Performed By: #### 3 024-7, 89625-1, 3051-0, 77730-9 #### [facility] CLIA [id number] [address] [place] [address] [place] Cholesterol.total/Cholest cristal in HDL [Mass ratio] 2.61 {ratio} Normal <5.[address] [facility] Comment on above: Order Comment: Speci men Type: BLOOD SPECIMEN Ordering Facility: [facility] Address: [address], [place] [address] Performed By: #### 3 024-7, 99211-9, 3051-0, 30088-3 #### [facility] CLIA [id number] [address] [place] [address] [place] FASTING TIME 12 hrs Normal [facility] Comment on above: Order Comment: Speci men Type: BLOOD SPECIMEN Ordering Facility: [facility] Address: [facility] [address], [place] [address] Performed By: #### 3 024-7, 20365-2, 305-0, 37055-0 #### [facility] CLIA [id number] [address] [place] [address] [place] Triglyceride [Mass/Vol] 126 mg/dL Normal <150 [facility] Comment on above: Order Comment: Speci men Type: BLOOD SPECIMEN Ordering Facility: [facility] Address: [address], [place] [address] Result Comment: <150 mg/dL, Normal 150-199 mg/dL, Borderline high 200-499 mg/dL, High >499 mg/dL, Very high Performed By: #### 3 024-7, 21818-6, 305-0, 02554-9 #### [facility] CLIA [id number] [address] [place] [address] [place] [facility] 25 Free T3 [Mass/Vol] 2.9 pg/mL Normal 2.3-4.1 [facility] Comment on above: Order Comment: Speci men Type: BLOOD SPECIMEN Ordering Facility: [facility] Address: [facility] [address], [place] [address] Performed By: #### 3 024-7, 78058-4, 305-0, 88499-9 #### [facility] CLIA [id number] [address] [place] [id number] [place] T4 Free SerPl-mCncon 025 Free T4 [Mass/Vol] 1.3 ng/dL Normal 0.9-1.7 [facility] Comment on above: Order Comment: Speci men Type: BLOOD SPECIMEN Ordering Facility: [facility] Address: [address], [place] [address] Performed By: #### 3 024-7, 84618-7, 3050-0, 11585-9 #### [facility] CLIA [id number] [address] [place] [address] [place] TSH SerPl-aCncon 09-11-2024 TSH Qn 2.420 m[IU]/L Normal 0.270-4.200 [facility] Comment on above: Order Comment: Speci men Type: BLOOD SPECIMENOrdering Facility: [facility] Address: [address], [place] [address] Performed By: #### 3 016-3 ####[facility] [id number] [place] [address] [place] CBC W/Diff, Automatedon 11-2 Absolute Lymph 2.19 X10 3/uL Normal 0.83-4.51 [facility] Comment on above: Performed By: #### L 501.4021, L500.2500, L501.9520, L100.0100 #### [facility] [address] [place], [address] Absolute Neut 5.1 X10 3/uL Normal 2.0-7.7 [facility] Comment on above: Performed By: #### L 501.4021, L500.2500, L501.9520, L100.0100 #### [facility] [address] [place], [address] Basophils/100 WBC (Bld) 0.6 % Normal 0-1 [facility] Comment on above: Performed By: #### L 501.4021, L500.2500, L501.9520, L100.0100 #### [facility] [address] [place], [address] Eosinophils/100 WBC (Bld) 1.0 % Normal 0-5 [facility] Comment on above: Performed By: #### L 501.4021, L500.2500, L501.9520, L100.0100 #### [facility] [address] [place], [address] Erythrocyte distribution width (RBC) [Ratio] 13.3 % Normal 11.6-14.6 [facility] Comment on above: Performed By: #### L 501.4021, L500.2500, L501.9520, L100.0100 #### [facility] [address] [place], [address] Hematocrit (Bld) [Volume fraction] 43.3 % Normal 37-47 [facility] Comment on above: Performed By: #### L 501.4021, L500.2500, L501.9520, L100.0100 #### [facility] [address] [place], [address] Hemoglobin (Bld) [Mass/Vol] 14.6 g/dL Normal 12.0-15.0 [facility] Comment on above: Performed By: #### L 501.4021, L500.2500, L501.9520, L100.0100 #### [facility] [address] [place], [address] IG% 0.500 Normal 0.0-0.9 [facility] Comment on above: Result Comment: IG% - Immature Granulocytes (promyelocytes, myelocytes and metamyelocytes) > 1% indicates that a LEFT SHIFT is Present. Performed By: #### L 501.4021, L500.2500, L501.9520, L100.0100 #### [facility] [address] [place], [address] Lymphocytes/100 WBC (Bld) 26.6 % Normal 19-41 [facility] Comment on above: Performed By: #### L 501.4021, L500.2500, L501.9520, L100.0100 #### [facility] [address] [place], [address] MCH (RBC) [Entitic mass] 31.2 pg Normal 27.0-32.0 [facility] Comment on above: Performed By: #### L 501.4021, L500.2500, L501.9520, L100.0100 #### [facility] [address] [place], [address] MCHC (RBC) [Mass/Vol] 33.7 g/dL Normal 32-36 [facility] Comment on above: Performed By: #### L 501.4021, L500.2500, L501.9520, L100.0100 #### [facility] [address] [place], [address] MCV (RBC) [Entitic vol] 92.5 fL Normal 81-99 [facility] Comment on above: Performed By: #### L 501.4021, L500.2500, L501.9520, L100.0100 #### [facility] [address] [place], [address] Monocytes/100 WBC (Bld) 9.5 % Normal 0-10 [facility] Comment on above: Performed By: #### L 501.4021, L500.2500, L501.9520, L100.0100 #### [facility] [address] [place], [address] Neutrophils/100 WBC (Bld) 61.8 % Normal 47-70 [facility] Comment on above: Performed By: #### L 501.4021, L500.2500, L501.9520, L100.0100 #### [facility] [address] [place], [address] Nucleated RBC (Bld) [#/Vol] 0 10*3/uL Normal 0-5 [facility] Comment on above: Performed By: #### L 501.4021, L500.2500, L501.9520, L100.0100 #### [facility] [address] [place], [address] Platelet mean volume (Bld) [Entitic vol] 10.8 fL Normal 6.2-12.0 [facility] Comment on above: Performed By: #### L 501.4021, L500.2500, L501.9520, L100.0100 #### [facility] [address] [place], [address] Platelets (Bld) [#/Vol] 176 10*3/uL Normal 150-450 [facility] Comment on above: Performed By: #### L 501.4021, L500.2500, L501.9520, L100.0100 #### [facility] [address] [place], [address] RBC (Bld) [#/Vol] 4.68 10*6/uL Normal 4.2-5.4 [facility] Comment on above: Performed By: #### L 501.4021, L500.2500, L501.9520, L100.0100 #### [facility] [address] [place], [address] RDW SD 45.5 fl High 35.1-43.9 [facility] Comment on above: Performed By: #### L 501.4021, L500.2500, L501.9520, L100.0100 #### [facility] [address] [place], [address] WBC (Bld) [#/Vol] 8.2 10*3/uL Normal 4.4-11.0 [facility] Comment on above: Performed By: #### L 501.4021, L500.2500, L501.9520, L100.0100 #### [facility] [address] [place], [address] Emergency Department Summary on 07-25-2024 Emergency Department Summary [facility] Medical Records Department [address] [place] [address] Emergency Department Summary 07/25/24 MR#: [id number] Acct: [id number] Name: BOAZ GOLDSTEIN Rep #: [id number] : 1965 58 From: Luther Williamson MD PCP: Dr. Hu Hairston MD Status:REG ER Location: ED HPI History of Present Illness Chief Complaint: Eye Problem Informant: patient and other (ophthalmology) Onset/Context/Timin g Location: Left Eye Onset: Days (2-3) Context: [...] a CT scan to rule out orbital cellulitis/postsept al involvement given the amount of swelling that [...] right eye. She still has no pain. [facility] Medical History Alcohol use Abscessed [...] throat Card (more content not included)... Normal [facility] Emergency Department Summary [facility] Medical Records Department [address] [place] [address] Emergency Department Summary 07/25/24 MR#: [id number] Acct: [id number] Name: BOAZ GOLDSTEIN Rep #: [id number] : 1965 58 From: Emiliano Cisse DO PCP: Dr. Hu Hairston MD Status:REG ER Location: ED HPI History of Present Illness Chief Complaint: Eye Problem PFSH PFSH Medical History Alcohol use Abscessed tooth Post-menopausal [...] eventualities. Flu (more content not included)... Normal [facility] Sinus/Facial Bone WITH Contr ason 07-25-2024 Sinus/Facial Bone WITH Contras [facility] Imaging Services [address] [place], [place] [id number] Sinus/Facial Bone WITH Contras MR#: [id number] Acct: [id number] Name: BOAZ GOLDSTEIN Rep #: [id number] : 1965 F 58 From: Shahid Hunt DO PCP: Dr. Hu Hairston MD Status: REG ER Study: Sinus/Facial Bone WITH Contras Date of Exam: 09/24/23 Exam# [id number] Ordering Dr: Luther Williamson MD -[id number] INDICATION: swelling left eye, eval orbital/postsept process [...] DLP = ( 591.53 ) mGycm COMPARISON: FINDINGS: SOFT TISSUES: Left periorbital and facial [...] 0:20 EST Reading Location ID and State: [facility] / [place] Tel [phone], Service support , CC: Dr. Luther Williamson MD; Dr. Hu Hairston MD Shipping Supervisor: Signed [facility] CNOVon 07-22-2024 CNOV Office Visit (UCWSTR) ---- BOAZ GOLDSTEIN ([id number]) 1965 F Date Time Provider Department 07/22/24 2:15 PM JAMAL LLANOS [facility] During your visit today, we recorded the following information about you: Temperature Pulse Respiration Blood pressure 97.7 degrees 94/minute 16/minute 124/80 Weight 98 kg Jamal Llanos APRN.PROJECT ESTIMATOR 07/22/2024 2:26 PM Signed Subjective HPI Nontoxic-appearing [...] DAILY. (Patient not taking: Reported on 07/09/2024) budesonide-formoter ol (SYMBICORT) 160-4.5 mcg/actuation inhaler Inhale 2 Puffs as instructed twice daily. (Patient not taking: Reported on 07/09/2024) FAMILY HISTORY Problem Relation Age of Onset Diabetes Mother Cancer Mother lung Hypertension Mother Cancer Maternal Grandmother lung Cancer Sister cervical Seizures Sister Coronary Artery Disease Father had 3 TX's Diabetes Sister Thyroid Child daughter Social History [...] Effort: Pulmonar (more content not included)... Normal [facility] 12 Lead EKGon 07-15-2024 12 Lead EKG [facility] Cardiovascular Services [address] [place] [address] 12 Lead EKG 07/15/24 1003 MR#: [id number] Acct: [id number] Name: BOAZ GOLDSTEIN Rep #: [id number] : 1965 58 From: Nish Sterling MD [...] Normal sinus rhythm Normal ECG Confirmed by ROME GIBSON, NISH ([id number]), editor in chief newspaper BETHEL FU ([id number]) on 07/17/2024 8:10:57 AM Referred By: SAMANTHA Confirmed By: NIHS STERLING MD 07/17/24 0810 Date Nish Sterling MD CC: Dr. Jamal Thompson DO; Dr. Hu Hairston MD Signed Normal [facility] BNP,B-Type NATRIURETIC PEPTI Ever 07-15-2024 Natriuretic peptide B (Bld) [Mass/Vol] 32.2 pg/mL Normal 0-100 [facility] Comment on above: Performed By: #### L 499.0043 #### [facility] [address] [place], [address] Basic Metabolic Profile (BMP )on 07-15-2024 BUN/CRE 38.7 RATIO High 10-20 [facility] Comment on above: Order Comment: 1Y Performed By: #### L 499.0043 #### [facility] [address] [place], [address] CA,Total 8.7 mg/dL Normal 8.5-10.1 [facility] Comment on above: Order Comment: 1Y Performed By: #### L 499.0043 #### [facility] [address] [place], [address] Chloride [Moles/Vol] 108 mmol/L High 98-107 [facility] Comment on above: Order Comment: 1Y Performed By: #### L 499.0043 #### [facility] [address] [place], [address] CO2 [Moles/Vol] 30.0 mmol/L Normal 21.0-32.0 [facility] Comment on above: Order Comment: 1Y Performed By: #### L 499.0043 #### [facility] [address] [place], [address] Creatinine [Mass/Vol] 0.54 mg/dL Low 0.55-1.02 [facility] Comment on above: Order Comment: 1Y Result Comment: The validity of the calculated GFR GFRAA in patients over 70 years has not been determined. Clinical correlation is essential. Performed By: #### L 499.0043 #### [facility] [address] [place], [address] ECRCL 132.80 ml/min Normal [facility] Comment on above: Order Comment: 1Y Performed By: #### L 499.0043 #### [facility] [address] [place], [address] EST GFR - AA 147 mL/min Normal >60 [facility] Comment on above: Order Comment: 1Y Result Comment: Afri can Dutch GFR Calc Performed By: #### L 499.0043 #### [facility] [address] [place], [address] GAP 3 Low 5-15 [facility] Comment on above: Order Comment: 1Y Performed By: #### L 499.0043 #### [facility] [address] [place], [address] GFR/1.73 sq M.predicted among non-blacks MDRD (S/P/Bld) [Vol rate/Area] 121 mL/min/{1.73_m2} Normal >60 [facility] Comment on above: Order Comment: 1Y Result Comment: Non- GFR Calc Performed By: #### L 499.0043 #### [facility] [address] [place], [address] Glucose [Mass/Vol] 112 mg/dL High 74-106 [facility] Comment on above: Order Comment: 1Y Result Comment: Fast ing Glucose result from 100 to 125 mg/dL suggests IMPAIRED HOMEOSTASIS per A.D.A. criteria. Performed By: #### L 499.0043 #### [facility] [address] [place], [address] Potassium [Moles/Vol] 3.6 mmol/L Normal 3.5-5.1 [facility] Comment on above: Order Comment: 1Y Performed By: #### L 499.0043 #### [facility] [address] [place], [address] Sodium [Moles/Vol] 142 mmol/L Normal 136-145 [facility] Comment on above: Order Comment: 1Y Performed By: #### L 499.0043 #### [facility] [address] [place], [address] Urea nitrogen [Mass/Vol] 21 mg/dL High 7-18 [facility] Comment on above: Order Comment: 1Y Performed By: #### L 499.0043 #### [facility] [address] [place], [address] Bedside Glucoseon 07-15-2024 FINGERSTICK GLU 109 mg/dL High 74-106 [facility] Comment on above: Result Comment: JOSE DANIEL CHERRY OF PATIENT CARE PER NURSING PROTOCOL Performed By: #### L 501.080 #### [facility] [address] [place], [address] CBC W/Diff, Automatedon 06-30 Absolute Lymph 3.30 X10 3/uL Normal 0.83-4.51 [facility] Comment on above: Performed By: #### L 499.0043 #### [facility] [address] [place], [address] Absolute Neut 6.3 X10 3/uL Normal 2.0-7.7 [facility] Comment on above: Performed By: #### L 499.0043 #### [facility] [address] [place], [address] Basophils/100 WBC (Bld) 0.5 % Normal 0-1 [facility] Comment on above: Performed By: #### L 499.0043 #### [facility] [address] [place], [address] Eosinophils/100 WBC (Bld) 2.0 % Normal 0-5 [facility] Comment on above: Performed By: #### L 499.0043 #### [facility] [address] [place], [address] Erythrocyte distribution width (RBC) [Ratio] 13.3 % Normal 11.6-14.6 [facility] Comment on above: Performed By: #### L 499.0043 #### [facility] [address] [place], [address] Hematocrit (Bld) [Volume fraction] 43.1 % Normal 37-47 [facility] Comment on above: Performed By: #### L 499.0043 #### [facility] [address] [place], [address] Hemoglobin (Bld) [Mass/Vol] 14.2 g/dL Normal 12.0-15.0 [facility] Comment on above: Performed By: #### L 499.0043 #### [facility] [address] [place], [address] IG% 0.700 Normal 0.0-0.9 [facility] Comment on above: Result Comment: IG% - Immature Granulocytes (promyelocytes, myelocytes and metamyelocytes) > 1% indicates that a LEFT SHIFT is Present. Performed By: #### L 499.0043 #### [facility] [address] [place], [address] Lymphocytes/100 WBC (Bld) 31.2 % Normal 19-41 [facility] [facility] Comment on above: Performed By: #### L 499.0043 #### [facility] [address] [place], [address] MCH (RBC) [Entitic mass] 30.7 pg Normal 27.0-32.0 [facility] Comment on above: Performed By: #### L 499.0043 #### [facility] [address] [place], [address] MCHC (RBC) [Mass/Vol] 32.9 g/dL Normal 32-36 [facility] Comment on above: Performed By: #### L 499.0043 #### [facility] [address] [place], [address] MCV (RBC) [Entitic vol] 93.1 fL Normal 81-99 [facility] Comment on above: Performed By: #### L 499.0043 #### [facility] [address] [place], [address] Monocytes/100 WBC (Bld) 6.3 % Normal 0-10 [facility] Comment on above: Performed By: #### L 499.0043 #### [facility] [address] [place], [address] Neutrophils/100 WBC (Bld) 59.3 % Normal 47-70 [facility] Comment on above: Performed By: #### L 499.0043 #### [facility] [address] [place], [address] Nucleated RBC (Bld) [#/Vol] 0 10*3/uL Normal 0-5 [facility] Comment on above: Performed By: #### L 499.0043 #### [facility] [address] [place], [address] Platelet mean volume (Bld) [Entitic vol] 11.3 fL Normal 6.2-12.0 [facility] Comment on above: Performed By: #### L 499.0043 #### [facility] [address] [place], [address] Platelets (Bld) [#/Vol] 179 10*3/uL Normal 150-450 [facility] Comment on above: Performed By: #### L 499.0043 #### [facility] [address] [place], [address] RBC (Bld) [#/Vol] 4.63 10*6/uL Normal 4.2-5.4 [facility] Comment on above: Performed By: #### L 499.0043 #### [facility] [address] [place], [address] RDW SD 45.2 fl High 35.1-43.9 [facility] Comment on above: Performed By: #### L 499.0043 #### [facility] [address] [place], [address] WBC (Bld) [#/Vol] 10.6 10*3/uL Normal 4.4-11.0 [facility] Comment on above: Performed By: #### L 499.0043 #### [facility] [address] [place], [place], [address] Chest PA and Lateralon 07-15 Chest PA and Lateral [facility] Imaging Services [address] [place] [address] Chest PA and Lateral MR#: [id number] Acct: [id number] Name: BOAZ GOLDSTEIN Rep #: [id number] : 1965 F 58 From: Song Knapp PCP: Dr. Hu Hairston MD Status: [facility] ER Study: Chest PA and Lateral Date of Exam: 07/15/24 Exam# [id number] Ordering Dr: Jamal Thompson DO -[id number] INDICATION: chest pain, sob EXAMINATION/TECHNIQ UE: X-RAY - XR Chest 2 Views COMPARISON: Prior study dated: 12/09/2022 FINDINGS: LINES/DEVICES: None. LUNGS: No consolidation, edema or effusion. No pneumothorax. MEDIASTINUM AND CARDIOVASCULAR STRUCTURES: Cardiac silhouette not enlarged. Central airways and mediastinal contour are unremarkable. BONES AND SOFT TISSUES: Unremarkable. RAD/Chest PA and Lateral IMPRESSION: No radiographic evidence of acute cardiopulmonary disease. Electronically Signed: Song Monterroso MD at 11:03 EST , CC: Dr. Jamal Thompson DO; Dr. Hu Hairston MD Shipping Supervisor: Signed Normal [facility] Emergency Department Summary on 07-15-2024 Emergency Department Summary [facility] Medical Records Department [address] [place] [address] Emergency Department Summary 07/15/24 MR#: [id number] Acct: [id number] Name: BOAZ GOLDSTEIN Rep #: [id number] : 1965 58 From: Jamal Thompson DO PCP: Dr. Hu Hairston MD Status:DEP ER Location: ED HPI History [...] the day or nighttime. 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 Patient does have a PCP. No abdominal pain nausea vomiting. No acute complaints. Patient is in minimal respiratory distress, slight increase in respiratory rate, slightly hyperventilating as well. [facility] Medical History Alcohol use Abscessed [...] or lis (more content not included)... Normal [facility] L501.4020on 07-15-2024 TROPONIN-I HS 3 pg/mL Normal 3.0-54.0 [facility] Comment on above: Result Comment: Jane menon Note: New Test Units and Gender Specific Reference Ranges. For more information see Policy Stat Procedure [place] High Sensitivity Troponin (TNIH) and attachments. Performed By: #### L 501.4021, L500.2500, L501.9520, L100.0100 #### [facility] [address] [place], [address] L501.5425on 07-15-2024 TROPONIN-I HS 3 pg/mL Normal 3.0-54.0 [facility] Comment on above: Order Comment: 1Y Result Comment: Jane menon Note: New Test Units and Gender Specific Reference Ranges. For more information see Policy Stat Procedure [place] High Sensitivity Troponin (TNIH) and attachments. Performed By: #### L 499.0043 #### [facility] [address] [place], [address] CNOVon 07-09-2024 CN [facility] ---- BOAZ GOLDSTEIN ([id number]) 1965 F Date Time Provider Department 07/09/24 2:30 PM JAMAL LLANOS [facility] During your visit today, we recorded the following information about you: Temperature Pulse Respiration Blood pressure 98 degrees 82/minute 20/minute 150/83 Weight 97.1 kg Jamal Llanos APRN.CNP 07/09/2024 2:51 PM Signed Subjective HPI Nontoxic-appearing [...] DAILY. (Patient not taking: Reported on 07/09/2024) budesonide-formoter ol (SYMBICORT) 160-4.5 mcg/actuation inhaler Inhale 2 Puffs as instructed twice daily. (Patient not taking: Reported on 07/09/2024) FAMILY HISTORY Problem Relation Age of Onset Diabetes Mother Cancer Mother lung Hypertension Mother Cancer Maternal Grandmother lung Cancer Sister cervical Seizures Sister Coronary Artery Disease Father had 3 TX's Diabetes Sister Thyroid Child daughter Social History [...] neck supple. (more content not included)... Normal [facility] Basophil percentageOrdered B y: Hu Marika on 09-10-2023 Chloride [Moles/Vol] 113 mmol/L 98-107 [facility] Cholesterol [Mass/Vol] 116 mg/dL <200 [facility] Comment on above: <200 mg/dL Desirable 200-240 mg/dL Borderline >240 mg/dL High Risk Glucose [Mass/Vol] 83 mg/dL 74-106 [facility] Potassium [Moles/Vol] 3.4 mmol/L 3.5-5.1 [facility] Sodium [Moles/Vol] 144 mmol/L 136-145 [facility] Triglyceride [Mass/Vol] 71 mg/dL <199 [facility] Comment on above: The drugs N-Acetylcy steine and Metamizole may falsely depress this assay.Serum Triglycerides Reference Interval Normal <150 mg/dL Borderline high 150 - 199 mg/dL High 200 - 499 mg/dL Very High > or = 500 mg/dL Laboratory - Chemistry and C hemistry - challengeOrdered By: Hu Hairston on 09-10-2023 CO2 [Moles/Vol] 26.0 mmol/L 21.0-32.0 [facility] Free T4 [Mass/Vol] 1.48 ng/dL 0.76-1.46 [facility] Urea nitrogen/Creatinine [Mass ratio] 23.0 mg/mg 10-20 [facility] No Panel InformationOrdered By: Hu Hairston on 09-10-2023 Estimated GFR (MDRD) Amer 140 mL/min >60 [facility] Comment on above: GFR Calc Estimated GFR (MDRD) Non-Af Amer 116 mL/min >60 [facility] Comment on above: Non- GFR Calc Free Triiodothyronine (T3) pg/dL 3.3 pg/mL 2.18-3.98 [facility] Thyroid Stimulating Hormone (TSH) 0.13 uIU/mL 0.358-3.74 [facility] Serum or plasma calcium gómez urement (mass/volume)Ordered By: Hu Hairston on 09-10-2023 Calcium [Mass/Vol] 8.9 mg/dL 8.5-10.1 [facility] Serum or plasma cholesterol in HDL measurement (mass/volume)Ordered By: Hu Hairston on 09-10-2023 Cholesterol in HDL [Mass/Vol] 46 mg/dL >40 [facility] Comment on above: The drugs N-Acetylcy steine and Metamizole may falsely depress this assay. Reference Range HDL <40 mg/dL Low HDL Cholesterol HDL >or= 60 mg/dL High HDL Cholesterol Serum or plasma cholesterol in VLDL measurement (mass/volume)Ordered By: Hu Hairston on 09-10-2023 Cholesterol in VLDL [Mass/Vol] 14 mg/dL 5-40 [facility] Serum or plasma creatinine m easurement (mass/volume)Ordered By: Hu Hairston on 09-10-2023 Creatinine [Mass/Vol] 0.57 mg/dL 0.55-1.02 [facility] Comment on above: The validity of the calculated GFR & GFRAA in patients over 70 years has not been determined. Clinical correlation is essential. Serum or plasma low density lipoprotein (LDL) cholesterol measurement (mass/volume)Ordered By: Hu Hairston on 09-10-2023 Cholesterol in LDL [Mass/Vol] 56 mg/dL 0-130 [facility] Serum or plasma urea nitroge n measurement (mass/volume)Ordered By: Hu Hairston on 09-10-2023 Urea nitrogen [Mass/Vol] 13 mg/dL 7-18 [facility] Thin prep Papanicolaou smear with manual screeningOrdered By: Hu Hairston on 09-10-2023 Thin prep Papanicolaou smear with manual screening 5 5-15 [facility] Basophil percentageOrdered B y: Hu Hairston on 06-07-2023 Bilirubin [Mass/Vol] 0.20 mg/dL 0.20-1.00 [facility] Comment on above: For patients on eltr ombopag therapy, use of Dimension [place] TBIL is not recommended. Chloride [Moles/Vol] 111 mmol/L 98-107 [facility] Cholesterol [Mass/Vol] 118 mg/dL <200 [facility] Comment on above: <200 mg/dL Desirable 200-240 mg/dL Borderline >240 mg/dL High Risk Glucose [Mass/Vol] 78 mg/dL 74-106 [facility] Potassium [Moles/Vol] 3.5 mmol/L 3.5-5.1 [facility] Comment on above: Slight Hemolysis, Re sult may be falsely increased. Protein [Mass/Vol] 7.4 g/dL 6.4-8.2 [facility] Sodium [Moles/Vol] 143 mmol/L 136-145 [facility] Triglyceride [Mass/Vol] 97 mg/dL <199 [facility] Comment on above: The drugs N-Acetylcy steine and Metamizole may falsely depress this assay.Serum Triglycerides Reference Interval Normal <150 mg/dL Borderline high 150 - 199 mg/dL High 200 - 499 mg/dL Very High > or = 500 mg/dL Cervical or vagninal specime n microscopic examination by cytology stain (reported asOrdered By: Hu Hairston on 06-07-2023 Cytology report Cyto stain Doc (Cvx/Vag) Comment . [facility] Comment on above: The Pap smear [...] (HPV) 16, 18, 31, 33,Ordered By: Hu Hairston on 06-07-2023 HPV 16+18+31+33+35+39+45+51+5 2+56+58+59+66+68 DNA Probe+sig amp Ql (Cvx) Negative Negative [facility] Comment on above: This nucleic acid am plification test detects fourteen high-risk HPV types (16,18,31,33,35,39,45,51,52,56,58,59,66,68)without differentiation.Performed at: [facility] [id number] Director: Ally Echavarria MD, Phone: [phone] at: =G - [facility] [address] [id number] Director: Ally Echavarria MD, Phone: [phone] Laboratory - Chemistry and C hemistry - challengeOrdered By: Hu Hairston on 06-07-2023 ALP [Catalytic activity/Vol] 149 U/L 45-117 [facility] ALT [Catalytic activity/Vol] 25 U/L 13-56 [facility] CO2 [Moles/Vol] 26.0 mmol/L 21.0-32.0 [facility] Free T4 [Mass/Vol] 1.31 ng/dL 0.76-1.46 [facility] Globulin (S) [Mass/Vol] 3.7 g/dL 2.2-4.2 [facility] Urea nitrogen/Creatinine [Mass ratio] 27.0 mg/mg 06-18 [facility] - CytologyOrdered By: Hu Hairston on 06-07-2023 Metal Technician Cyto stain Nom (Cvx/Vag) [ID] Comment . [facility] Comment on above: Anabell Carneytec hnologist (ASCP) Laboratory - Miscellaneous t estsOrdered By: Hu Hairston on 06-07-2023 Service comment (Unsp spec) [Interp] Comment . [facility] Comment on above: This liquid based Th inPrep(R) pap test was screened withthe use of an image guided system. Service comment (Unsp spec) [Interp] . . [facility] No Panel InformationOrdered By: Hu Hairston on 06-07-2023 Estimated GFR (MDRD) Amer 124 mL/min >60 [facility] Comment on above: GFR Calc Estimated GFR (MDRD) Non-Af Amer 103 mL/min >60 [facility] Comment on above: Non- GFR Calc Free Triiodothyronine (T3) pg/dL 2.9 pg/mL 2.18-3.98 [facility] Thyroid Stimulating Hormone (TSH) 0.24 uIU/mL 0.358-3.74 [facility] Pathology report final diagnosis Narrative Comment . [facility] Comment on above: NEGATIVE FOR INTRAEP ITHELIAL LESION OR MALIGNANCY. Serum or plasma albumin gómez urement (mass/volume)Ordered By: Hu Hairston on 06-07-2023 Albumin [Mass/Vol] 3.7 g/dL 3.2-5.0 [facility] Serum or plasma albumin/glob ulin mass ratioOrdered By: Hu Hairston on 06-07-2023 Albumin/Globulin [Mass ratio] 1.0 {ratio} 0.9-2.4 [facility] Serum or plasma calcium gómez urement (mass/volume)Ordered By: Hu Hairston on 06-07-2023 Calcium [Mass/Vol] 8.6 mg/dL 8.5-10.1 [facility] Serum or plasma cholesterol in HDL measurement (mass/volume)Ordered By: Hu Hairston on 06-07-2023 Cholesterol in HDL [Mass/Vol] 45 mg/dL >40 [facility] Comment on above: The drugs N-Acetylcy steine and Metamizole may falsely depress this assay. Reference Range HDL <40 mg/dL Low HDL Cholesterol HDL >or= 60 mg/dL High HDL Cholesterol Serum or plasma cholesterol in VLDL measurement (mass/volume)Ordered By: Hu Hairston on 06-07-2023 Cholesterol in VLDL [Mass/Vol] 19 mg/dL 5-40 [facility] Serum or plasma creatinine m easurement (mass/volume)Ordered By: Hu Hairston on 06-07-2023 Creatinine [Mass/Vol] 0.63 mg/dL 0.55-1.02 [facility] Comment on above: The validity of the calculated GFR & GFRAA in patients over 70 years has not been determined. Clinical correlation is essential. Serum or plasma low density lipoprotein (LDL) cholesterol measurement (mass/volume)Ordered By: Hu Hairston on 06-07-2023 Cholesterol in LDL [Mass/Vol] 54 mg/dL 0-130 [facility] Serum or plasma urea nitroge n measurement (mass/volume)Ordered By: Hu Hairston on 06-07-2023 Urea nitrogen [Mass/Vol] 17 mg/dL 7-18 [facility] Thin prep Papanicolaou smear with manual screeningOrdered By: Hu Hairston on 06-07-2023 Thin prep Papanicolaou smear with manual screening 16 U/L 15-37 [facility] Comment on above: Slight Hemolysis, Re sult may be falsely increased. Thin prep Papanicolaou smear with manual screening 6 5-15 [facility] Absolute lymphocyte countOrd ered By: Dr. Pan on 11-14-2022 Lymphocytes Auto (Unsp spec) [#/Vol] 2.61 10*3/uL 0.83-4.51 [facility] Basophil percentageOrdered B y: Dr. Pan on 11-14-2022 Basophils/100 WBC (Bld) 0.4 % 0-1 [facility] Chloride [Moles/Vol] 111 mmol/L 98-107 [facility] Eosinophils/100 WBC (Bld) 2.1 % 0-5 [facility] Glucose [Mass/Vol] 112 mg/dL 74-106 [facility] Comment on above: Fasting Glucose resu lt from 100 to 125 mg/dL suggests IMPAIRED HOMEOSTASIS per A.D.A. criteria. Neutrophils (Bld) [#/Vol] 6.7 10*3/uL 2.0-7.7 [facility] Neutrophils/100 WBC (Bld) 64.7 % 47-70 [facility] Potassium [Moles/Vol] 3.8 mmol/L 3.5-5.1 [facility] Sodium [Moles/Vol] 145 mmol/L 136-145 [facility] WBC (Bld) [#/Vol] 10.3 10*3/uL 4.4-11.0 [facility] Blood erythrocytes count (nu mber/volume)Ordered By: Dr. Pan on 11-14-2022 RBC (Bld) [#/Vol] 4.55 10*6/uL 4.2-5.4 [facility] Blood hemoglobin measurement (mass/volume)Ordered By: Dr. Pan on 11-14-2022 Hemoglobin (Bld) [Mass/Vol] 13.9 g/dL 12.0-15.0 [facility] Blood lymphocytes/100 leukoc ytesOrdered By: Dr. Pan on 11-14-2022 Lymphocytes/100 WBC (Bld) 25.3 % 19-41 [facility] Blood monocytes/100 leukocyt esOrdered By: Dr. Pan on 11-14-2022 Monocytes/100 WBC (Bld) 7.2 % 0-10 [facility] Blood platelet mean volumeOr dered By: Dr. Pan on 11-14-2022 Platelet mean volume (Bld) [Entitic vol] 11.6 fL 6.2-12.0 [facility] Determination of erythrocyte mean corpuscular volume (MCV)Ordered By: Dr. Pan on 11-14-2022 MCV (RBC) [Entitic vol] 93.4 fL 81-99 [facility] Hematocrit Auto (Bld) [Volum e fraction]Ordered By: Dr. Pan on 11-14-2022 Hematocrit (Bld) [Volume fraction] 42.5 % 37-47 [facility] - Chemistry and C hemistry - challengeOrdered By: Dr. Pan on 11-14-2022 CO2 [Moles/Vol] 28.0 mmol/L 21.0-32.0 [facility] Natriuretic peptide B (Bld) [Mass/Vol] 21.5 pg/mL 0-100 [facility] Urea nitrogen/Creatinine [Mass ratio] 22.6 mg/mg 10-20 [facility] - Hematology and Cell countsOrdered By: Dr. Pan on 11-14-2022 Erythrocyte distribution width (RBC) [Entitic vol] 44.9 fL 35.1-43.9 [facility] Erythrocyte distribution width (RBC) [Ratio] 13.1 % 11.6-14.6 [facility] Immature granulocytes/100 WBC (Bld) 0.300 % 0.0-0.9 [facility] Comment on above: IG% - Immature Granu locytes (promyelocytes, myelocytes and metamyelocytes) > 1% indicates that a LEFT SHIFT is Present. MCH (RBC) [Entitic mass] 30.5 pg 27.0-32.0 [facility] Nucleated RBC/100 WBC (Bld) [Ratio] 0 % 0-5 [facility] MCHC Auto (RBC) [Mass/Vol]Or dered By: Dr. Pan on 11-14-2022 MCHC (RBC) [Mass/Vol] 32.7 g/dL 32-36 [facility] No Panel InformationOrdered By: Dr. Pan on 11-14-2022 Estimated Creatinine Clearance Calc 89.25 ml/min [facility] Estimated GFR (MDRD) Amer 117 mL/min >60 [facility] Comment on above: GFR Calc Estimated GFR (MDRD) Non-Af Amer 97 mL/min >60 [facility] Comment on above: Non- GFR Calc Platelets bldOrdered By: Dr. Pan on 11-14-2022 Platelets (Bld) [#/Vol] 176 10*3/uL 150-450 [facility] Serum or plasma calcium gómez urement (mass/volume)Ordered By: Dr. Pan on 11-14-2022 Calcium [Mass/Vol] 8.6 mg/dL 8.5-10.1 [facility] Serum or plasma creatinine m easurement (mass/volume)Ordered By: Dr. Pan on 11-14-2022 Creatinine [Mass/Vol] 0.66 mg/dL 0.55-1.02 [facility] Comment on above: The validity of the calculated GFR & GFRAA in patients over 70 years has not been determined. Clinical correlation is essential. Serum or plasma urea nitroge n measurement (mass/volume)Ordered By: Dr. Pan on 11-14-2022 Urea nitrogen [Mass/Vol] 15 mg/dL 03-16 [facility] Thin prep Papanicolaou smear with manual screeningOrdered By: Dr. Pan on 11-14-2022 Thin prep Papanicolaou smear with manual screening 6 01-11 [facility] Basophil percentageon 2021 Bilirubin [Mass/Vol] 0.30 mg/dL 0.20-1.00 [facility] Work Phone: Comment on above: For patients on eltr ombopag therapy, use of Dimension [place] TBIL is not recommended. Chloride [Moles/Vol] 111 mmol/L 98-107 [facility] Work Phone: Cholesterol [Mass/Vol] 153 mg/dL <200 [facility] Work Phone: Comment on above: <200 mg/dL Desirable 200-240 mg/dL Borderline >240 mg/dL High Risk Glucose [Mass/Vol] 112 mg/dL 74-106 [facility] Work Phone: Comment on above: Fasting Glucose resu lt from 100 to 125 mg/dL suggests IMPAIRED HOMEOSTASIS per A.D.A. criteria. Potassium [Moles/Vol] 3.7 mmol/L 3.5-5.1 [facility] Work Phone: [phone] Protein [Mass/Vol] 7.4 g/dL 6.4-8.2 [facility] Work Phone: [phone] Sodium [Moles/Vol] 141 mmol/L 136-145 [facility] Work Phone: [phone] Triglyceride [Mass/Vol] 165 mg/dL [facility] Work Phone: Comment on above: The drugs N-Acetylcy steine and Metamizole may falsely depress this assay.Serum Triglycerides Reference Interval Normal <150 mg/dL Borderline high 150 - 199 mg/dL High 200 - 499 mg/dL Very High > or = 500 mg/dL Laboratory - Chemistry and C hemistry - challengeon 12-29-2021 ALP [Catalytic activity/Vol] 127 U/L 45-117 [facility] Work Phone: ALT [Catalytic activity/Vol] 29 U/L 13-56 [facility] Work Phone: [phone] CO2 [Moles/Vol] 25.0 mmol/L 21.0-32.0 [facility] Work Phone: [phone] Globulin (S) [Mass/Vol] 3.6 g/dL 2.2-4.2 [facility] Work Phone: [phone] Urea nitrogen/Creatinine [Mass ratio] 21.6 mg/mg 10-20 [facility] Work Phone: No Panel Informationon 12-29 Estimated GFR (MDRD) Amer 85 mL/min >60 [facility] Work Phone: Comment on above: GFR Calc Estimated GFR (MDRD) Non-Af Amer 70 mL/min >60 [facility] Work Phone: Comment on above: Non- GFR Calc Serum or plasma albumin gómez urement (mass/volume)on 12-29-2021 Albumin [Mass/Vol] 3.8 g/dL 3.2-5.0 [facility] Work Phone: [phone] Serum or plasma albumin/glob ulin mass ratioon 12-29-2021 Albumin/Globulin [Mass ratio] 1.1 {ratio} 0.9-2.4 [facility] Work Phone: [phone] Serum or plasma calcium gómez urement (mass/volume)on 12-29-2021 Calcium [Mass/Vol] 8.8 mg/dL 8.5-10.1 [facility] Work Phone: Serum or plasma cholesterol in HDL measurement (mass/volume)on 12-29-2021 Cholesterol in HDL [Mass/Vol] 54 mg/dL [facility] Work Phone: Comment on above: The drugs N-Acetylcy steine and Metamizole may falsely depress this assay. Reference Range HDL <40 mg/dL Low HDL Cholesterol HDL >or= 60 mg/dL High HDL Cholesterol Serum or plasma cholesterol in VLDL measurement (mass/volume)on 12-29-2021 Cholesterol in VLDL [Mass/Vol] 33 mg/dL 5-40 [facility] Work Phone: Serum or plasma creatinine m easurement (mass/volume)on 12-29-2021 Creatinine [Mass/Vol] 0.88 mg/dL 0.55-1.02 [facility] Work Phone: Comment on above: The validity of the calculated GFR & GFRAA in patients over 70 years has not been determined. Clinical correlation is essential. Serum or plasma low density lipoprotein (LDL) cholesterol measurement (mass/volume)on 12-29-2021 Cholesterol in LDL [Mass/Vol] 66 mg/dL 0-130 [facility] Work Phone: Serum or plasma urea nitroge n measurement (mass/volume)on 12-29-2021 Urea nitrogen [Mass/Vol] 19 mg/dL 7-18 [facility] Work Phone: Thin prep Papanicolaou smear with manual screeningon 12-29-2021 Thin prep Papanicolaou smear with manual screening 19 U/L 15-37 [facility] Work Phone: [phone] Thin prep Papanicolaou smear with manual screening 5 5-15 [facility] Work Phone: [phone] HIV 1 and HIV-2 antibody ass ay with HIV-1 p24 antigen detectionon 12-19-2021 HIV 1+2 Ab+HIV1 p24 Ag IA Ql Non-Reactive Nonreactive [facility] Work Phone: Serum Treponema species anti body detectionon 12-19-2021 Treponema sp Ab Ql (S) Non-Reactive [facility] Work Phone: Absolute lymphocyte counton 11-12-2021 Lymphocytes Auto (Unsp spec) [#/Vol] 2.12 10*3/uL 0.83-4.51 [facility] Work Phone: Basophil percentageon 2021 Basophils/100 WBC (Bld) 0.3 % 0-1 [facility] Work Phone: Chloride [Moles/Vol] 108 mmol/L 98-107 [facility] Work Phone: Eosinophils/100 WBC (Bld) 2.0 % 0-5 [facility] Work Phone: Glucose [Mass/Vol] 102 mg/dL 74-106 [facility] [facility] Work Phone: Comment on above: Fasting Glucose resu lt from 100 to 125 mg/dL suggests IMPAIRED HOMEOSTASIS per A.D.A. criteria. Neutrophils (Bld) [#/Vol] 7.4 10*3/uL 2.0-7.7 [facility] Work Phone: Neutrophils/100 WBC (Bld) 71.2 % 47-70 [facility] Work Phone: Potassium [Moles/Vol] 3.7 mmol/L 3.5-5.1 [facility] Work Phone: Sodium [Moles/Vol] 140 mmol/L 136-145 [facility] Work Phone: WBC (Bld) [#/Vol] 10.4 10*3/uL 4.4-11.0 [facility] Work Phone: Blood erythrocytes count (nu mber/volume)on 11-12-2021 RBC (Bld) [#/Vol] 4.75 10*6/uL 4.2-5.4 [facility] Work Phone: Blood hemoglobin measurement (mass/volume)on 11-12-2021 Hemoglobin (Bld) [Mass/Vol] 15.1 g/dL 12.0-15.0 [facility] Work Phone: Blood lymphocytes/100 leukoc yteson 11-12-2021 Lymphocytes/100 WBC (Bld) 20.4 % 19-41 [facility] Work Phone: [phone] Blood monocytes/100 leukocyt eson 11-12-2021 Monocytes/100 WBC (Bld) 5.9 % 0-10 [facility] Work Phone: [phone] Blood platelet mean volumeon 11-12-2021 Platelet mean volume (Bld) [Entitic vol] 11.3 fL 6.2-12.0 [facility] Work Phone: [phone] Determination of erythrocyte mean corpuscular volume (MCV)on 11-12-2021 MCV (RBC) [Entitic vol] 93.7 fL 81-99 [facility] Work Phone: [phone] Hematocrit Auto (Bld) [Volum e fraction]on 11-12-2021 Hematocrit (Bld) [Volume fraction] 44.5 % 37-47 [facility] Work Phone: Laboratory - Chemistry and C hemistry - challengeon 11-12-2021 CO2 [Moles/Vol] 30.0 mmol/L 21.0-32.0 [facility] Work Phone: Urea nitrogen/Creatinine [Mass ratio] 27.4 mg/mg 10-20 [facility] Work Phone: [phone] Laboratory - Hematology and Cell countson 11-12-2021 Erythrocyte distribution width (RBC) [Entitic vol] 45.5 fL 35.1-43.9 [facility] Work Phone: [phone] Erythrocyte distribution width (RBC) [Ratio] 13.3 % 11.6-14.6 [facility] Work Phone: [phone] Immature granulocytes/100 WBC (Bld) 0.200 % 0.0-0.9 [facility] Work Phone: [phone] Comment on above: IG% - Immature Granu locytes (promyelocytes, myelocytes and metamyelocytes) > 1% indicates that a LEFT SHIFT is Present. MCH (RBC) [Entitic mass] 31.8 pg 27.0-32.0 [facility] Work Phone: Nucleated RBC/100 WBC (Bld) [Ratio] 0 % 0-5 [facility] Work Phone: MCHC Auto (RBC) [Mass/Vol]on 11-12-2021 MCHC (RBC) [Mass/Vol] 33.9 g/dL 32-36 [facility] Work Phone: No Panel Informationon 11-12 Estimated Creatinine Clearance Calc 102.81 ml/min [facility] Work Phone: Estimated GFR (MDRD) Amer 136 mL/min >60 [facility] Work Phone: Comment on above: GFR Calc Estimated GFR (MDRD) Non-Af Amer 113 mL/min >60 [facility] Work Phone: Comment on above: Non- GFR Calc Platelets bldon 11-12-2021 Platelets (Bld) [#/Vol] 165 10*3/uL 150-450 [facility] Work Phone: S. pyogenes Ag IF Ql (Throat )on 11-12-2021 S. pyogenes Ag IA Ql (Unsp spec) Streptococcus Group A [facility] Work Phone: [phone] Serum or plasma calcium gómez urement (mass/volume)on 11-12-2021 Calcium [Mass/Vol] 8.6 mg/dL 8.5-10.1 [facility] Work Phone: [phone] Serum or plasma creatinine m easurement (mass/volume)on 11-12-2021 Creatinine [Mass/Vol] 0.58 mg/dL 0.55-1.02 [facility] Work Phone: Comment on above: The validity of the calculated GFR & GFRAA in patients over 70 years has not been determined. Clinical correlation is essential. Serum or plasma urea nitroge n measurement (mass/volume)on 11-12-2021 Urea nitrogen [Mass/Vol] 16 mg/dL 7-18 [facility] Work Phone: [phone] Thin prep Papanicolaou smear with manual screeningon 11-12-2021 Thin prep Papanicolaou smear with manual screening 2 5-15 [facility] Work Phone: Absolute lymphocyte counton 10-06-2021 Lymphocytes Auto (Unsp spec) [#/Vol] 4.20 10*3/uL 0.83-4.51 [facility] Work Phone: Basophil percentageon 2021 Basophils/100 WBC (Bld) 0.3 % 0-1 [facility] Work Phone: Bilirubin [Mass/Vol] 0.30 mg/dL 0.20-1.00 [facility] Work Phone: Comment on above: For patients on eltr ombopag therapy, use of Dimension [place] TBIL is not recommended. Chloride [Moles/Vol] 105 mmol/L 98-107 [facility] Work Phone: Cholesterol [Mass/Vol] 210 mg/dL <200 [facility] Work Phone: Comment on above: <200 mg/dL Desirable 200-240 mg/dL Borderline >240 mg/dL High Risk Eosinophils/100 WBC (Bld) 1.6 % 0-5 [facility] Work Phone: Glucose [Mass/Vol] 86 mg/dL 74-106 [facility] Work Phone: Neutrophils (Bld) [#/Vol] 7.3 10*3/uL 2.0-7.7 [facility] Work Phone: Neutrophils/100 WBC (Bld) 57.6 % 47-70 [facility] Work Phone: Potassium [Moles/Vol] 3.8 mmol/L 3.5-5.1 [facility] Work Phone: Protein [Mass/Vol] 8.1 g/dL 6.4-8.2 [facility] Work Phone: Sodium [Moles/Vol] 138 mmol/L 136-145 [facility] Work Phone: Triglyceride [Mass/Vol] 90 mg/dL [facility] Work Phone: Comment on above: The drugs N-Acetylcy steine and Metamizole may falsely depress this assay.Serum Triglycerides Reference Interval Normal <150 mg/dL Borderline high 150 - 199 mg/dL High 200 - 499 mg/dL Very High > or = 500 mg/dL WBC (Bld) [#/Vol] 12.6 10*3/uL 4.4-11.0 [facility] Work Phone: [phone] Blood erythrocytes count (nu mber/volume)on 10-06-2021 RBC (Bld) [#/Vol] 5.10 10*6/uL 4.2-5.4 [facility] Work Phone: [phone] Blood hemoglobin measurement (mass/volume)on 10-06-2021 Hemoglobin (Bld) [Mass/Vol] 15.5 g/dL 12.0-15.0 [facility] Work Phone: Blood lymphocytes/100 leukoc yteson 10-06-2021 Lymphocytes/100 WBC (Bld) 33.4 % 19-41 [facility] Work Phone: [phone] Blood monocytes/100 leukocyt eson 10-06-2021 Monocytes/100 WBC (Bld) 6.4 % 0-10 [facility] Work Phone: [phone] Blood platelet mean volumeon 10-06-2021 Platelet mean volume (Bld) [Entitic vol] 10.7 fL 6.2-12.0 [facility] Work Phone: [phone] Determination of erythrocyte mean corpuscular volume (MCV)on 10-06-2021 MCV (RBC) [Entitic vol] 94.1 fL 81-99 [facility] Work Phone: [phone] Hematocrit Auto (Bld) [Volum e fraction]on 10-06-2021 Hematocrit (Bld) [Volume fraction] 48.0 % 37-47 [facility] Work Phone: [phone] Laboratory - Chemistry and C hemistry - challengeon 10-06-2021 ALP [Catalytic activity/Vol] 122 U/L 45-117 [facility] Work Phone: [phone] ALT [Catalytic activity/Vol] 48 U/L 13-56 [facility] Work Phone: [phone] CO2 [Moles/Vol] 29.0 mmol/L 21.0-32.0 [facility] Work Phone: [phone] Globulin (S) [Mass/Vol] 4.3 g/dL 2.2-4.2 [facility] Work Phone: [phone] Urea nitrogen/Creatinine [Mass ratio] 22.1 mg/mg 10-20 [facility] Work Phone: [phone] Laboratory - Hematology and Cell countson 10-06-2021 Erythrocyte distribution width (RBC) [Entitic vol] 44.7 fL 35.1-43.9 [facility] Work Phone: [phone] Erythrocyte distribution width (RBC) [Ratio] 12.8 % 11.6-14.6 [facility] Work Phone: [phone] Immature granulocytes/100 WBC (Bld) 0.700 % 0.0-0.9 [facility] Work Phone: [phone] Comment on above: IG% - Immature Granu locytes (promyelocytes, myelocytes and metamyelocytes) > 1% indicates that a LEFT SHIFT is Present. MCH (RBC) [Entitic mass] 30.4 pg 27.0-32.0 [facility] Work Phone: [phone] Nucleated RBC/100 WBC (Bld) [Ratio] 0 % 0-5 [facility] Work Phone: [phone] MCHC Auto (RBC) [Mass/Vol]on 10-06-2021 MCHC (RBC) [Mass/Vol] 32.3 g/dL 32-36 [facility] Work Phone: [phone] No Panel Informationon 10-06 Estimated GFR (MDRD) Amer 106 mL/min >60 [facility] Work Phone: [phone] Comment on above: GFR Calc Estimated GFR (MDRD) Non-Af Amer 88 mL/min >60 [facility] Work Phone: Comment on above: Non- GFR Calc Thyroid Stimulating Hormone (TSH) 0.89 uIU/mL 0.358-3.74 [facility] Work Phone: Platelets bldon 10-06-2021 Platelets (Bld) [#/Vol] 250 10*3/uL 150-450 [facility] Work Phone: Serum Helicobacter pylori Ig G antibody assay (units/volume)on 10-06-2021 H. pylori IgG Qn (S) 0.10 [facility] Work Phone: Comment on above: Result Units: Index Value Negative <0.80 Equivocal 0.80 - 0.89 Positive >0.89Performed at: [employer] [facility] [employer] [id number] Director: Austin Bustamante PhD, Phone: [phone] Serum or plasma albumin gómez urement (mass/volume)on 10-06-2021 Albumin [Mass/Vol] 3.8 g/dL 3.2-5.0 [facility] Work Phone: Serum or plasma albumin/glob ulin mass ratioon 10-06-2021 Albumin/Globulin [Mass ratio] 0.9 {ratio} 0.9-2.4 [facility] Work Phone: Serum or plasma calcium gómez urement (mass/volume)on 10-06-2021 Calcium [Mass/Vol] 9.1 mg/dL 8.5-10.1 [facility] Work Phone: Serum or plasma cholesterol in HDL measurement (mass/volume)on 10-06-2021 Cholesterol in HDL [Mass/Vol] 55 mg/dL [facility] Work Phone: Comment on above: The drugs N-Acetylcy steine and Metamizole may falsely depress this assay. Reference Range HDL <40 mg/dL Low HDL Cholesterol HDL >or= 60 mg/dL High HDL Cholesterol Serum or plasma cholesterol in VLDL measurement (mass/volume)on 10-06-2021 Cholesterol in VLDL [Mass/Vol] 18 mg/dL 5-40 [facility] Work Phone: Serum or plasma creatinine m easurement (mass/volume)on 10-06-2021 Creatinine [Mass/Vol] 0.72 mg/dL 0.55-1.02 [facility] Work Phone: Comment on above: The validity of the calculated GFR & GFRAA in patients over 70 years has not been determined. Clinical correlation is essential. Serum or plasma low density lipoprotein (LDL) cholesterol measurement (mass/volume)on 10-06-2021 Cholesterol in LDL [Mass/Vol] 137 mg/dL 0-130 [facility] Work Phone: Serum or plasma urea nitroge n measurement (mass/volume)on 10-06-2021 Urea nitrogen [Mass/Vol] 16 mg/dL 7-18 [facility] Work Phone: Thin prep Papanicolaou smear with manual screeningon 10-06-2021 Thin prep Papanicolaou smear with manual screening 22 U/L 15-37 [facility] Work Phone: Thin prep Papanicolaou smear with manual screening 4 5-15 [facility] Work Phone: No Panel Informationon 09-27 SARS-CoV-2 Antigen (Rapid) [facility] Work Phone: Vital Signs Date Time Vital Sign Value Performing Clinician Facility 03-16-2025 18:09-0400 Body temperature 97.8 [degF] Dr. Hu Hairston MD Work Phone: [facility] 03-16-2025 18:09-0400 Diastolic blood pressure 87 mm[Hg] Dr. Hu Hairston MD Work Phone: [facility] 03-16-2025 18:09-0400 Heart rate 84 /min Dr. Hu Hairston MD Work Phone: [facility] 03-16-2025 18:09-0400 Respiratory rate 16 /min Dr. Hu Hairston MD Work Phone: [facility] 03-16-2025 18:09-0400 SaO2% (BldA) [Mass fraction] 100 % Dr. Hu Hairston MD Work Phone: 0(506)022-731550 [place] [address] 03-16-2025 18:09-0400 Systolic blood pressure 154 mm[Hg] Dr. Hu Hairston MD Work Phone: 9(844)317-055410 [place] [address] 03-16-2025 15:33-0400 Body height 170.[address] Hu Hairston MD Work Phone: 3(074)802-995510 [place] [address] 03-16-2025 15:33-0400 Body mass index (BMI) [Ratio] 34.1 kg/m2 Dr. Hu Hairston MD Work Phone: 5(389)507-129410 [place] [address] 03-16-2025 15:33-0400 Body weight 98.[address] Hu Hairston MD Work Phone: 4(766)236-941210 [place] [address] 03-05-2025 15:10-0400 Heart rate 83 /min Dr. Hu Hairston MD Work Phone: 3(089)862-888810 [place] [address] 03-05-2025 15:10-0400 Respiratory rate 18 /min Dr. Hu Hairston MD Work Phone: 4(609)680-335210 [place] [address] 03-05-2025 14:38-0400 Body temperature 98 [degF] Dr. Hu Hairston MD Work Phone: 7(417)147-786010 [place] [address] 03-05-2025 14:38-0400 Diastolic blood pressure 86 mm[Hg] Dr. Hu Hairston MD Work Phone: 1(128)975-032710 [place] [address] 03-05-2025 14:38-0400 SaO2% (BldA) [Mass fraction] 98 % Dr. Hu Hairston MD Work Phone: 2(576)012-413410 [place] [address] 03-05-2025 14:38-0400 Systolic blood pressure 127 mm[Hg] Dr. Hu Hairston MD Work Phone: 3(768)388-335710 [place] [address] 03-05-2025 04:00-0400 Inhaled oxygen flow rate 2 L/min Dr. Hu Hairston MD Work Phone: 7(018)826-827910 [place] [address] 03-04-2025 01:43-0400 Body height 170.[address] Hu Hairston MD Work Phone: 8(653)431-208550 [place] [address] 03-04-2025 01:43-0400 Body mass index (BMI) [Ratio] 37 kg/m2 Dr. Hu Hairston MD Work Phone: 2(580)647-201210 [place] [address] 03-04-2025 01:43-0400 Body weight 107.[address] Hu Hairston MD Work Phone: 3(737)919-660010 [place] [address] 03-04-2025 00:42-0400 Body temperature 98 [degF] Dr. Hu Hairston MD Work Phone: 8(048)855-570210 [place] [address] 03-04-2025 00:42-0400 Diastolic blood pressure 96 mm[Hg] Dr. Hu Hairston MD Work Phone: 7(249)713-155010 [place] [address] 03-04-2025 00:42-0400 Heart rate 89 /min Dr. Hu Hairston MD Work Phone: 4(522)216-608110 [place] [address] 03-04-2025 00:42-0400 Respiratory rate 16 /min Dr. Hu Hairston MD Work Phone: 5(928)883-702210 [place] [address] 03-04-2025 00:42-0400 SaO2% (BldA) [Mass fraction] 96 % Dr. Hu Hairston MD Work Phone: 3(499)279-647210 [place] [address] 03-04-2025 00:42-0400 Systolic blood pressure 147 mm[Hg] Dr. Hu Hairston MD Work Phone: 9(023)852-771410 [place] [address] 03-03-2025 21:42-0400 Body height 170.[address] Hu Hairston MD Work Phone: 9(111)471-596810 [place] [address] 03-03-2025 21:42-0400 Body mass index (BMI) [Ratio] 36.6 kg/m2 Dr. Hu Hairston MD Work Phone: 8(320)664-433710 [place] [address] 03-03-2025 21:42-0400 Body weight 106.[address] Hu Hairston MD Work Phone: 2(235)014-682310 [place] [address] 03-02-2025 18:14-0400 Body temperature 99 [degF] Dr. Hu Hairston MD Work Phone: [facility] 03-02-2025 18:14-0400 Diastolic blood pressure 75 mm[Hg] Dr. Hu Hairston MD Work Phone: [facility] 03-02-2025 18:14-0400 Heart rate 100 /min Dr. uH Hairston MD Work Phone: 3(877)970-413250 [place] [address] 03-02-2025 18:14-0400 Respiratory rate 20 /min Dr. Hu Hairston MD Work Phone: [facility] 03-02-2025 18:14-0400 SaO2% (BldA) [Mass fraction] 98 % Dr. Hu Hairston MD Work Phone: 8(374)512-330610 [place] [address] 03-02-2025 18:14-0400 Systolic blood pressure 111 mm[Hg] Dr. Hu Hairston MD Work Phone: 0(738)135-237310 [place] [address] 03-02-2025 14:10-0400 Body height 170.[address] Hu Hairston MD Work Phone: 8(798)407-578110 [place] [address] 03-02-2025 14:10-0400 Body mass index (BMI) [Ratio] 36.6 kg/m2 Dr. Hu Hairston MD Work Phone: 7(345)993-929610 [place] [address] 03-02-2025 14:10-0400 Body weight 106.[address] Hu Hairston MD Work Phone: 9(024)809-269410 [place] [address] 02-11-2025 21:32-0400 Body temperature 98.2 [degF] Dr. Hu Hairston MD Work Phone: 1(410)079-265550 [place] [address] 02-11-2025 21:32-0400 Diastolic blood pressure 68 mm[Hg] Dr. Hu Hairston MD Work Phone: 6(049)267-281294 [address] 02-11-2025 21:32-0400 Heart rate 93 /min Dr. Hu Hairston MD Work Phone: 8(853)713-876250 [place] [address] 02-11-2025 21:32-0400 Respiratory rate 20 /min Dr. Hu Hairston MD Work Phone: 6(150)787-758710 [place] [address] 02-11-2025 21:32-0400 SaO2% (BldA) [Mass fraction] 94 % Dr. Hu Hairston MD Work Phone: 7(423)236-753610 [place] [address] 02-11-2025 21:32-0400 Systolic blood pressure 122 mm[Hg] Dr. Hu Hairston MD Work Phone: 6(029)679-137310 [place] [address] 02-11-2025 17:56-0400 Body height 170.[address] Hu Hairston MD Work Phone: 5(241)245-198510 [place] [address] 02-11-2025 17:56-0400 Body mass index (BMI) [Ratio] 36.3 kg/m2 Dr. Hu Hairston MD Work Phone: 4(185)851-353810 [place] [address] 02-11-2025 17:56-0400 Body weight 105.[address] Hu Hairston MD Work Phone: 5(593)757-380710 [place] [address] 01-26-2025 12:21-0400 Body temperature 98.3 [degF] Dr. Hu Hairston MD Work Phone: 8(886)195-373310 [place] [address] 01-26-2025 12:21-0400 Diastolic blood pressure 70 mm[Hg] Dr. Hu Hairston MD Work Phone: 7(514)012-072710 [place] [address] 01-26-2025 12:21-0400 Heart rate 80 /min Dr. Hu Hairston MD Work Phone: 8(969)064-924010 [place] [address] 01-26-2025 12:21-0400 Respiratory rate 18 /min Dr. Hu Hairston MD Work Phone: 6(452)559-752910 [place] [address] 01-26-2025 12:21-0400 SaO2% (BldA) [Mass fraction] 99 % Dr. Hu Hairston MD Work Phone: 9(449)167-553810 [place] [address] 01-26-2025 12:21-0400 Systolic blood pressure 120 mm[Hg] Dr. Hu Hairston MD Work Phone: 2(299)173-059510 [place] [address] 01-26-2025 10:00-0400 Body height 170.[address] Hu Hairston MD Work Phone: 5(410)646-822110 [place] [address] 01-26-2025 10:00-0400 Body mass index (BMI) [Ratio] 35.7 kg/m2 Dr. Hu Hairston MD Work Phone: [facility] 01-26-2025 10:00-0400 Body weight 103.[address] Hu Hairston MD Work Phone: [facility] 07-28-2024 10:20-0500 Diastolic Blood Pressure Non-Invasive 73 mm[Hg] EWELINA PUENTE MD [facility] 07-28-2024 10:20-0500 Heart rate 73 /min EWELINA PUENTE MD [facility] 07-28-2024 10:20-0500 Respiratory rate 16 /min EWELINA PUENTE MD [facility] 07-28-2024 10:20-0500 Systolic Blood Pressure Non-Invasive 141 mm[Hg] EWELINA PUENTE MD [facility] 07-28-2024 08:25-0500 Body height 170.2 cm EWELINA PUENTE MD [facility] 07-28-2024 08:25-0500 Body temperature 98.42 [degF] EWELINA PUENTE MD [facility] 07-28-2024 08:25-0500 Body weight 86.4 kg EWELINA PUENTE MD [facility] 07-28-2024 08:25-0500 Diastolic Blood Pressure Non-Invasive 73 mm[Hg] EWELINA PUENTE MD [facility] 07-28-2024 08:25-0500 Heart rate 89 /min EWELINA PUENTE MD [facility] 07-28-2024 08:25-0500 Respiratory rate 18 /min EWELINA PUENTE MD [facility] 07-28-2024 08:25-0500 Systolic Blood Pressure Non-Invasive 120 mm[Hg] EWELINA PUENTE MD [facility] 07-22-2024 14:12-0500 Body mass index (BMI) [Ratio] 33.91 kg/m2 Jamal Llanos [employer]PROJECT ESTIMATOR Work Phone: [facility] 07-22-2024 14:12-0500 Body temperature 97.7 [degF] Jamal Llanos [employer].PROJECT ESTIMATOR Work Phone: [facility] 07-22-2024 14:12-0500 Body weight 98 kg Jamal Llanos [employer].PROJECT ESTIMATOR Work Phone: [facility] 07-22-2024 14:12-0500 Diastolic blood pressure 80 mm[Hg] Jamal Llanos [employer].PROJECT ESTIMATOR Work Phone: [facility] 07-22-2024 14:12-0500 Heart rate 94 /min Jamal Llanos [employer].PROJECT ESTIMATOR Work Phone: [facility] 07-22-2024 14:12-0500 Respiratory rate 16 /min Jamal Llanos [employer].PROJECT ESTIMATOR Work Phone: [facility] 07-22-2024 14:12-0500 SaO2% (BldA) [Mass fraction] 97 % Jamal Llanos [employer].PROJECT ESTIMATOR Work Phone: [facility] 07-22-2024 14:12-0500 Systolic blood pressure 124 mm[Hg] Jamal Llanos [employer].PROJECT ESTIMATOR Work Phone: [facility] 07-09-2024 14:37-0500 Body mass index (BMI) [Ratio] 33.6 kg/m2 Jamal Llanos [employer].PROJECT ESTIMATOR Work Phone: [facility] 07-09-2024 14:37-0500 Body temperature 98.01 [degF] Jamal Taveraday [facility] [employer].PROJECT ESTIMATOR Work Phone: [facility] 07-09-2024 14:37-0500 Body weight 97.1 kg Jamal Taveraday [facility] [employer].PROJECT ESTIMATOR Work Phone: [facility] 07-09-2024 14:37-0500 Diastolic blood pressure 83 mm[Hg] Jamal Taveraday [facility] [employer].PROJECT ESTIMATOR Work Phone: [facility] 07-09-2024 14:37-0500 Heart rate 82 /min Jamal Taveraday [facility] [employer].PROJECT ESTIMATOR Work Phone: [facility] 07-09-2024 14:37-0500 Respiratory rate 20 /min Jamal Taveraday [facility] [employer].PROJECT ESTIMATOR Work Phone: [facility] 07-09-2024 14:37-0500 SaO2% (BldA) [Mass fraction] 96 % [facility] [employer]ER.PROJECT ESTIMATOR Work Phone: [facility] 07-09-2024 14:37-0500 Systolic blood pressure 150 mm[Hg] Jamal Taveraday [facility] [employer].PROJECT ESTIMATOR Work Phone: [facility] 11-14-2022 17:05-0400 Diastolic blood pressure 57 mm[Hg] [facility] 11-14-2022 17:05-0400 Heart rate 97 /min [facility] 11-14-2022 17:05-0400 Respiratory rate 19 /min [facility] 11-14-2022 17:05-0400 SaO2% (BldA) [Mass fraction] 98 % [facility] 11-14-2022 17:05-0400 Systolic blood pressure 126 mm[Hg] [facility] 11-14-2022 15:31-0400 Body height 170.18 cm [facility] 11-14-2022 15:31-0400 Body mass index (BMI) [Ratio] 31.3 kg/m2 [facility] 11-14-2022 15:31-0400 Body temperature 96.7 [degF] [facility] 11-14-2022 15:31-0400 Body weight 90.71 kg [facility] 11-12-2021 06:30-0400 Respiratory rate 17 /min TECH[employer]ICAL SUPPORT ASSOCIATE-C Romi Dwyer Work Phone: [facility] Work Phone: 11-12-2021 06:29-0400 Heart rate 72 /min TECHNICAL SUPPORT ASSOCIATE-C Romi Dwyer Work Phone: [facility] Work Phone: 11-12-2021 06:29-0400 SaO2% (BldA) [Mass fraction] 98 % TECHNICAL SUPPORT ASSOCIATE-C Romi Dwyer Work Phone: [facility] Work Phone: 11-12-2021 04:39-0400 Diastolic blood pressure 89 mm[Hg] TECHNICAL SUPPORT ASSOCIATE-C Romi Dwyer Work Phone: [facility] Work Phone: 11-12-2021 04:39-0400 Systolic blood pressure 137 mm[Hg] TECHNICAL SUPPORT ASSOCIATE-C Romi Dwyer Work Phone: [facility] Work Phone: 11-12-2021 03:56-0400 Body height 170.18 cm TECHNICAL SUPPORT ASSOCIATE-C Romi Dwyer Work Phone: [facility] Work Phone: 11-12-2021 03:56-0400 Body mass index (BMI) [Ratio] 35.2 kg/m2 TECHNICAL SUPPORT ASSOCIATE-C Romi Dwyer Work Phone: [facility] Work Phone: 11-12-2021 03:56-0400 Body temperature 97.9 [degF] TECHNICAL SUPPORT ASSOCIATE-C Romi Dwyer Work Phone: [facility] Work Phone: 11-12-2021 03:56-0400 Body weight 102.2 kg TECHNICAL SUPPORT ASSOCIATE-C Romi Dwyer Work Phone: [facility] Work Phone: Encounters Encounter Date Encounter Type Care Provider Facility Start: 06-14-2025 End: 06-14-2025 ambulatory HU HAIRSTON Facility:[facility] Start: 03-19-2025 ambulatory Hu Hairston Facility:[facility] Start: 03-16-2025 End: 03-16-2025 Emergency department patient visit Dr. Hu Hairston MD Work Phone: -Emergency Department Work Phone: Start: 03-05-2025 Non-patient / Non-visit Dr. Surendra De Luna MD -[facility] Start: 03-05-2025 Non-patient / Non-visit Dr. Patti Cornejo MD -[facility] Work Phone: Start: 03-04-2025 Non-patient / Non-visit Dr. Surendra De Luna MD -[facility] Start: 03-04-2025 ambulatory Hu Hairston Facility:[facility] Start: 03-04-2025 End: 03-05-2025 Evaluation and management of inpatient Dr. Dick Perez DO -Medical Surgical 3 Work Phone: Start: 03-02-2025 End: 03-02-2025 Emergency department patient visit Dr. Hu Hairston MD Work Phone: -Emergency Department Work Phone: Start: 02-11-2025 End: 02-11-2025 Emergency department patient visit Dr. Hu Hairston MD Work Phone: -Emergency Department Work Phone: Start: 01-26-2025 End: 01-26-2025 Emergency department patient visit Dr. Hu Hairston MD Work Phone: -Emergency Department Work Phone: Start: 12-22-2024 End: 12-22-2024 ambulatory CLARA GARCIA MD Facility:[facility] Start: 12-22-2024 End: 12-22-2024 Patient encounter procedure CLARA GARCIA MD [facility] Start: 10-07-2024 ambulatory Hu Hairston Facility:[facility] Start: 09-11-2024 End: 09-11-2024 ambulatory HU HAIRSTON Facility:[facility] Start: 07-28-2024 End: 07-28-2024 Emergency department patient visit EWELINA PUENTE MD [facility] Start: 07-25-2024 End: 07-26-2024 Emergency department patient visit Hu Hairston Facility:[facility] Start: 07-25-2024 End: 07-25-2024 Emergency department patient visit Hu Hairston Facility:[facility] Start: 07-22-2024 End: 07-22-2024 ambulatory HU HAIRSTON Facility:[facility] Start: 07-22-2024 End: 07-22-2024 Office outpatient visit 15 minutes Jamal Llanos APRN.PROJECT ESTIMATOR Work Phone: [facility] Comment on above: Red eye (Primary Dx) Start: 07-15-2024 End: 07-15-2024 Emergency department patient visit Hu Hairston Facility:[facility] Start: 07-09-2024 End: 07-09-2024 ambulatory HU HAIRSTON Facility:[facility] Start: 07-09-2024 End: 07-09-2024 Office outpatient visit 25 minutes Jamal Llanos APRN.PROJECT ESTIMATOR Work Phone: [facility] Comment on above: COPD with exacerbati on (HCC) (Primary Dx) Start: 09-10-2023 End: 09-10-2023 ambulatory [facility] Work Phone: Start: 09-10-2023 End: 09-10-2023 Patient encounter procedure [facility] Start: 06-17-2023 End: 06-17-2023 ambulatory [facility] Work Phone: Start: 06-17-2023 End: 06-17-2023 Patient encounter procedure [facility]-Outpatient Bone Densitometry Work Phone: Start: 06-07-2023 End: 06-07-2023 ambulatory [facility] Work Phone: Start: 06-07-2023 End: 06-07-2023 [facility] Start: 11-14-2022 End: 11-14-2022 [facility] Start: 12-29-2021 End: 12-29-2021 Patient encounter procedure TECHNICAL SUPPORT ASSOCIATE-C Romi Dwyer [facility] Start: 12-19-2021 End: 12-19-2021 Patient encounter procedure TECHNICAL SUPPORT ASSOCIATE-C Romi Carlsons [facility] Start: 11-12-2021 End: 11-12-2021 Emergency department patient visit TECHNICAL SUPPORT ASSOCIATE-C Romi Carlsons [facility] Start: 10-22-2021 Non-patient / Non-visit TECHNICAL SUPPORT ASSOCIATE-C L francisco j Dwyer Work Phone: [facility] Start: 10-21-2021 End: 10-21-2021 Patient encounter procedure TECHNICAL SUPPORT ASSOCIATE-C Romi Carlsons Work Phone: [facility]-Pulmonary Services/Neurology Start: 10-06-2021 End: 10-06-2021 Patient encounter procedure TECHNICAL SUPPORT ASSOCIATE-C Romi Carlsons [facility] Start: 09-27-2021 End: 09-27-2021 Emergency department patient visit TECHNICAL SUPPORT ASSOCIATE-C Romi Dwyer [facility] Start: 10-28-2016 Patient encounter status Jamal Llanos APRN.PROJECT ESTIMATOR Work Phone: [facility] Start: 08-13-2014 Patient encounter status Jamal Llanos APRN.PROJECT ESTIMATOR Work Phone: [facility] Procedures Date Procedure Procedure Detail Performing Clinician Start: 03-16-2025 Plain chest X-ray Dr. Marleen Hairston MD Work Phone: Start: 03-16-2025 CT of soft tissues o f neck with contrast Dr. Hu Hairston MD Work Phone: Start: 03-16-[address] Hu Hairston MD Work Phone: Start: 03-05-[address] Hu Hairston MD Work Phone: Start: 03-04-[address] Hu Hairston MD Work Phone: Start: 03-04-2025 Gram stain microscopy Aria Hairston MD Work Phone: Start: 03-04-2025 End: 03-04-2025 Microbial culture, routine Dr. Hu garza MD Work Phone: Start: 03-04-2025 Bacterial nucleic ac id assay Dr. Hu Hairston MD Work Phone: Start: 03-04-2025 Serum inorganic phos phate measurement Dr. Hu Hairston MD Work Phone: Start: 03-03-[address] Hu Hairston MD Work Phone: Start: 03-03-2025 CT of chest without contrast Dr. Hu Hairston MD Work Phone: Start: 03-02-2025 Plain chest X-ray Dr. Marleen Hairston MD Work Phone: Start: 03-02-2025 Urnls dip stick/tabl et reagent auto microscopy Dr. Hu Hairston MD Work Phone: Start: 03-02-[address] Hu Hairston MD Work Phone: Start: 03-02-[address] Hu Hairston MD Work Phone: Start: 03-02-2025 Gram stain microscopy Aria Hairston MD Work Phone: Start: 03-02-2025 Identification proce dure for living organism Dr. Hu Hairston MD Work Phone: Start: 03-02-2025 End: 03-02-2025 Microbial culture, routine Dr. Hu garza MD Work Phone: Start: 03-02-[address] Hu Hairston MD Work Phone: Start: 02-11-2025 X-ray of chest, PA a nd lateral views Dr. Hu Hairston MD Work Phone: Start: 02-11-[address] Hu Hairston MD Work Phone: Start: 01-26-2025 Plain chest X-ray Dr. Marleen Hairston MD Work Phone: Start: 01-26-[address] Hu Hairston MD Work Phone: Start: 06-17-2023 Dual energy X-ray absorptiometry Start: 06-17-2023 Screening mammography Start: 11-14-2022 Plain chest X-ray Start: 11-12-2021 Streptococcus pyogen es antigen assay TECHNICAL SUPPORT ASSOCIATE-C Romi Dwyer Work Phone: Start: 11-12-2021 End: 11-12-2021 Viral antigen assay TECHNICAL SUPPORT ASSOCIATE-C Romi Dwyer Work Phone: Start: 11-12-2021 CT of soft tissues o f neck with contrast TECHNICAL SUPPORT ASSOCIATE-C Romi Dwyer Work Phone: Start: 10-06-2021 Plain chest X-ray TECHNICAL SUPPORT ASSOCIATE-C Romi Dwyer Work Phone: Start: 09-27-2021 SARS-CoV-2 Antigen (Rapid) TECHNICAL SUPPORT ASSOCIATE-C Romi Dwyer Work Phone: Start: 09-27-2021 Plain chest X-ray TECHNICAL SUPPORT ASSOCIATE-C Romi Dwyer Work Phone: Start: 02-08-2019 Colonoscopy Jamal joyner [employer]OLLER.PROJECT ESTIMATOR Work Phone: Start: 10-26-2016 Lipid 1996 panel - S mario or Plasma Jamal Llanos [employer] CONTROLLER.PROJECT ESTIMATOR Work Phone: Plan of Treatment Date Care Activity Detail Author Start: 2028 Pneumococcal vaccination Pneumococcal Vaccine (3 of 3 - PPSV23 or PCV20) [facility] Start: 03-23-2028 Urine microalbumin profile DTaP,Tdap,Td Vaccine (4 - Td or Tdap) [facility] Start: 12-18-2026 Screening for malignant neoplasm of cervix Cervical Cancer Screening [facility] Start: 03-16-2025 [facility] Start: 03-16-2025 [facility] Start: 03-05-2025 Patient discharge [facility] Start: 03-04-2025 Consultation [facility] Start: 03-04-2025 Source specific culture [facility] Start: 03-04-2025 Anaerobic Culture Anaerobic Culture [facility] Start: 03-04-2025 Wound Culture Wound Culture [facility] Start: 03-04-2025 Source specific culture [facility] Start: 03-04-2025 Referral to general surgeon [facility] Start: 03-04-2025 Following clinical pathway protocol [facility] Start: 03-04-2025 Following clinical pathway protocol [facility] Start: 03-04-2025 Admission procedure [facility] Start: 03-04-2025 Hospital admission, emergency, from emergency room, medical nature [facility] Start: 03-04-2025 Inhalation therapy procedure [facility] Start: 03-02-2025 End: 03-02-2025 [facility] Start: 03-02-2025 End: 03-02-2025 [facility] Start: 03-02-2025 Bacteria identified in Blood by Culture Blood Culture [facility] Start: 03-02-2025 Bacteria identified in Urine by Culture Urine Culture [facility] Start: 03-02-2025 Blood culture Blood Culture [facility] Start: 03-02-2025 Incision & drainage abscess simple/single I&D ABSCESS SIMPLE/SINGLE [facility] Start: 03-02-2025 Microbial culture, routine Wound Culture [facility] Start: 03-02-2025 Microscopic observation [Identifier] in Unspecified specimen by Gram stain [facility] Start: 03-02-2025 Urine culture [facility] Start: 03-02-2025 Wound Culture Wound Culture [facility] Start: 02-11-2025 [facility] Start: 01-26-2025 [facility] Start: 2023 RSV Vaccine (1 - Risk 60-74 years 1-dose series) RSV Vaccine (1 - Risk 60-74 years 1-dose series) [facility] Start: 06-17-2023 Dual energy X-ray absorptiometry Dexa Bone Density Study [facility] Start: 02-08-2022 Screening for malignant neoplasm of colon [facility] Start: 10-26-2021 Lipid panel Lipid Screening [facility] Start: 10-26-2019 Diabetes Screening Diabetes Screening [facility] Start: 10-30-2017 Screening for malignant neoplasm of colon Fecal Occult Blood [facility] Start: 09-14-2017 Screening for malignant neoplasm of breast Mammogram Screening [facility] Start: 2013 Shingrix Vaccine (1 of 2) Shingrix Vaccine (1 of 2) [facility] Start: 2008 Screening for malignant neoplasm of colon [facility] Start: 1993 Zoledronic acid therapy Alpha-1 Antitrypsin Deficiency Screening [facility] Start: 1981 Annual PCP Team Chronic Disease Visit Annual PCP Team Chronic Disease Visit [facility] Start: 1981 Anxiety Screening Anxiety Screening [facility] Start: 1981 Spirometry Spirometry [facility] Bacteria identified in Unspecified specimen by Anaerobe culture [facility] Bacteria identified in Unspecified specimen by Anaerobe culture [facility] Microbial culture, routine [facility] Microbial culture, routine [facility] Path report.final Dx Spec [facility] Patient Education [facility] Work Phone: Patient referral [facility] Work Phone: Troponin T.cardiac [Mass/volume] in Serum or Plasma by High sensitivity method [facility] Wound microscopy, cu lture and sensitivities [facility] Immunizations Immunization Date Immunization Notes Care Provider Fa gin 10-10-2020 COVID-19 original vaccine, full dose, monovalent (MODERNA) Jamal Llanos APRN.PROJECT ESTIMATOR Work Phone: [facility] 09-12-2020 COVID-19 original vaccine, full dose, monovalent (MODERNA) Jamal Llanos APRN.PROJECT ESTIMATOR Work Phone: [facility] 08-24-2016 influenza, injectabl e, quadrivalent, contains preservative Jamal Llanos [employer] CONTROLLER.PROJECT ESTIMATOR Work Phone: [facility] 09-07-2015 influenza, injectabl e, quadrivalent, contains preservative Jamal Llanos [employer] CONTROLLER.PROJECT ESTIMATOR Work Phone: [facility] Work Phone: 09-07-2015 pneumococcal conjuga te vaccine, 13 valent Jamal Llanos [employer] CONTROLLER.PROJECT ESTIMATOR Work Phone: [facility] 01-27-2015 tetanus toxoid, reduced diphtheria toxoid, and acellular pertussis vaccine, adsorbed TECHNICAL SUPPORT ASSOCIATE-C Romi Dwyer Work Phone: [facility] 08-27-2014 Influenza virus vaccine TECHNICAL SUPPORT ASSOCIATE-C Romi Dwyer Work Phone: [facility] 08-27-2014 Pneumococcal Vaccine TECHNICAL SUPPORT ASSOCIATE-C Maria Guadalupe Blairlins Work Phone: [facility] Work Phone: 08-27-2014 pneumococcal vaccine , unspecified formulation [facility] 08-13-2014 influenza, seasonal, injectable Jamal Llanos [employer] CONTROLLER.PROJECT ESTIMATOR Work Phone: [facility] 08-13-2014 pneumococcal conjuga te vaccine, 13 valent Jamal Llanos T[employer]ER[facility] Work Phone: [facility] Payers Date Payer Category Payer Unknown [id number] 2024 Self-pay [id number] 2023 Private Health Insurance [facility] CHO[employer] PL[employer] [id number] 2023-Present [phone] [address] [place] [address] O [id number] 2023 Private Health Insurance [id number] 2021 Unknown [id number] 2021 Unknown [id number] 2015 Unknown [id number] 1965 Unknown [id number] 1965 Unknown [id number] Unknown [id number] .462 Unknown [id number] .462 Unknown [id number] .462 Unknown [id number] [id number] .462 Unknown [id number] .462 Unknown [id number] .462 Unknown [id number] .462 Unknown [id number] [id number] .462 Unknown [id number] [id number] .462 Unknown [id number] .462 Unknown [id number] [id number] .462 Unknown [id number] [id number] .462 Unknown [id number] [id number] .462 Unknown [id number] .462 Social History Date Type Detail Facility Start: 11-12-2021 End: 11-14-2022 Tobacco smoking status NHIS Unknown if ever smoked [facility] Start: 02-06-2019 Non-smoker [facility] Start: 1965 Sex Assigned At Female [facility] Start: 02-16-2015 Rare [facility] Start: 02-16-2015 None [facility] Start: 07-09-2024 End: 03-02-2025 Tobacco smoking status NHIS Light tobacco smoker [facility] History of tobacco use Cigarette Smoker [facility] Start: 07-09-2024 Tobacco use and exposure Smokeless tobacco non-user [facility] Start: 07-09-2024 End: 07-22-2024 Alcoholic beverage intake Current non-drinker of alcohol (finding) [facility] Start: 02-13-2021 End: 07-09-2024 History of Social function [facility] Start: 02-13-2021 End: 07-09-2024 Tobacco use panel [facility] National Score (1-100), lower number is lower risk Not on file [facility] Start: 07-09-2024 Tobacco Comment 2 cigarette per day [facility] Start: 01-10-2014 Alcohol Comment occasionally [facility] Start: 1965 Sex assigned at Not on file [facility] Tobacco smoking status [facility] Start: 07-28-2024 Sex Female (finding) [place] Start: 01-26-2025 Tobacco smoking stat us MTIS Smokes tobacco daily (finding) [facility] Start: 03-03-2025 End: 03-16-2025 Tobacco smoking status NHIS Ex-smoker (finding) [facility] Goals Date Patient Goal Desired Activity /State Functional Status Date Assessment Result Facility 03-05-2025 Functional status Ambulates [facility] Work Phone: 07-28-2024 Functional Status Independent Sara Brown [facility] 07-28-2024 Functional Status Independent [facility] Mental Status Date Assessment Result Facility 03-05-2025 Cognitive function Appropriate;Cooperativ e [facility] Work Phone: 03-03-2025 Cognitive function Level Of Cons ciousness Awake;Alert;Appropriate;Follow s Commands [facility] Work Phone: 07-28-2024 Mental Status Orientation Oriented x 4 [facility] 07-28-2024 Mental Status [facility] 11-12-2021 Cognitive function Level Of Cons ciousness Awake;Alert;Appropriate [facility] Work Phone: Clinical Notes 11-14-2022 to 03-16-2025 Note Date & Type Note Facility 03-16-2025 Radiology Diagnostic study note [facility] Imaging Services [address] [place], [place] [address] Chest 1 View (Portable) MR#: [id number] Acct: [id number] Name: BOAZ GOLDSTEIN Rep #: [id number] : 1965 F 59 From: Mekhi Herman MD PCP: Dr. Hu Hairston MD Status: REG E R Study:Chest 1 View (Portable) Date of Exam: 03/16/25 Exam# [id number] Ordering Dr: Sarina Castanon DO PROCEDURE: CHEST 1 VIEW (PORTABLE) 03/16/2025 REASON FOR EXAM: DYSPNEA TECHNIQUE: Frontal view of the chest. COMPARISON: 03/02/2025 FINDINGS: Lungs/Pleura: No focal consolidation, pneumothorax or sizable pleural effusion. Heart/Mediastinum: Mild cardiomegaly, with central vascular congestion. Bones/Soft tissues: No significant abnormality. RAD/Chest 1 View (Portable) IMPRESSION: Mild cardiomegaly with vascular congestion. No airspace consolidation or sizable pleural effusion. Reading Location: [id number] CC: Dr. Hu Hairston MD; Dr. Prashanth Castanon DO ~ Shipping Supervisor: Signed [facility] 03-16-2025 Radiology Diagnostic study note [facility] Imaging Services [address] [place] [address] Soft Tissue Neck WITH Contrast MR#: [id number] Acct: [id number] Name: BOAZ GOLDSTEIN Rep #: [id number] : 1965 F 59 From: Rosas Fonseca MD PCP: Dr. Hu Hairston MD Status: REG E R Study:Soft Tissue Neck WITH Contrast Date of Exam: 03/16/25 Exam# [id number] Ordering Dr: Sarina Castanon DO PROCEDURE: SOFT TISSUE NECK WITH CONTRAST 03/16/2025 REASON FOR EXAM: THROAT TIGHTNESS, DYSPNEA TECHNIQUE: SOFT TISSUE NECK WITH CONTRAST CONTRAST: Isovue 370 VOLUME: 97 mL One or more dose reduction techniques were used (e.g., Automated exposure control, adjustment of the mA and/or kV according to patient size, use of iterative reconstruction technique). RADIATION DOSE SUMMARY: CTDlvol: 16.35 mGy DLP: 559.59 mGycm COMPARISON: 11/12/2021 FINDINGS: Symmetric orbits. Normal nasopharynx. Normal parotid glands. Normal submandibular glands. Normal epiglottis and vocal folds. No subglottic narrowing. Intact thoracic inlet. No enlarged cervical lymph nodes. Normal jugular vein and carotid artery. CT/Soft Tissue Neck WITH Contrast IMPRESSION: No acute abnormality. Reading Location: [facility] CC: Dr. Hu Hairston MD; Dr. Prashanth Castanon DO ~ Shipping Supervisor: Signed [facility] 03-05-2025 Consult note Note Date/Time March 05, 2025 3:33p m [facility] Medical Records Department [address] [place] [address] Consultation - Infectious Dx 03/05/25 1530 MR#: [id number] Acct: [id number] Name: BOAZ GOLDSTEIN Rep #:[id number] : 1965 59 From: Clara de luna MD PCP: Dr. Hu Hairston MD Status:ADM I N [facility] Assessment & Plan Assessment/Plan (1) Abscess: PLAN: I&D done, cx pending, on vanc. H/o hives with PCN and keflex. Plan at this point would be 5-7 days po cefdinir 300mg bid at discharge. Will follow, thank you (2) Cellulitis: QUALIFIERS: Site of cellulitis: trunk Site of cellulitis of trunk: unspecified site Qualified Code(s): L03.319 - Cellulitis of trunk, unspecified HPI Consult Data Date of Consult: 03/05/25 HPI Narrative Reason for Consultation: abscess HPI Narrative: BOAZ GOLDSTEIN, is a 59 F who presented 03/03 with two days of L flank redness, pain, and fever. No known inciting event, thought it was a spider bite. Came to ED, admitted on vanc after receiving clinda. Taken for I&D, feeling better. Full ROS performed and neg except as noted above. [facility] Medical History Alcohol use Abscessed tooth Post-menopausal [...] pulmonary disease) 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 Home Medications ?Medication ?Instructions ?Recorded ?Last Taken ?Type amlodipine 5 mg tablet 5 mg PO DAILY #90 tabs 05/0701/26/25 Rx atorvastatin 10 mg tablet 10 mg PO QHS #90 tabs 01/25/25 Rx albuterol sulfate 90 mcg/actuation 2 puff inhalation Q 4H PRN 02/17/24 02/22/24 History aerosol inhaler shortness of breath or wheez ing aspirin 81 mg chewable tablet 1 tab PO DAILY 03/03/25 Unknown History levothyroxine 137 mcg tablet 137 mcg PO DAILY 03/04/25 Unknown History Allergy/AdvReac Type Severity Reaction Status Date / Time cephalexin monohydrate (From Allergy Hives Verified 03/03/25 21:44 Keflex) latex Allergy Rash Verified 03/03/25 21:44 Penicillins (PCN) Allergy Hives Verified 03/03/25 21:44 Family History Grandfather Kidney disease Heart disease Colon cancer Sister Lung cancer Seizures Mother Cancer Diabetes Daughter Hypertension Thyroid disorder Surgical History Hx of colonoscopy History of cholecystectomy History of delivery Social History Smoking Status: Former smoker second hand exposure: Yes quit status: not considering quitting alcohol intake: never substance use type: does not use caffeine: Yes what type of physical activity do you participate in: none seatbelt use: always do you feel safe at home: Yes additional social history: Employed Self reliance single Physical Exam Const alert, oriented x3 and no apparent distress General Appearance: cooperative HEENT normocephalic and head/scalp atraumatic Eyes PERRL and EOMs intact bilaterally Neck supple and No nodes Resp normal air movement and clear to auscultation bilaterally Cardio regular rate and regular rhythm GI soft to palpation, non-tender and non-distended Extremity General Extremity: Negative for edema Skin Skin Narrative: L flank dressing, mild redness Neuro CN's II-XII intact bilaterally Lab / Micro Data Attestation: I reviewed the patient's lab results. 03/05/25 04:29 03/05/25 04:29 Labs: Laboratory Results - last 24 hr 03/04/25 22:27: Vancomycin Trough 13.4 03/05/25 04:29: WBC 5.9, RBC 3.74 L, Hgb 11.7 L, Hct 35.2 L, MCV 94.1, MCH 31.3,MCHC 33.2, RDW Std Deviation 52.0 H, RDW Coeff of Vinicio 14.9 H, Plt Count 119 L, MPV 12.0, Immature Gran % (Auto) 0.500, Neut % (Auto) 61.1, Lymph % (Auto) 26.9,Wolfe % (Auto) 7.6, Eos % (Auto) 3.2, Baso % (Auto) 0.7, Absolute Neuts (auto) 3.6, Absolute Lymphs (auto) 1.59, Nucleated RBC % 0, Dohle Bodies 1+, Platelet Estimate SLT DEC, Polychromasia 1+, Anisocytosis 1+, Ovalocytes 1+, Sodium 139, Potassium 3.7, Chloride 107, Carbon Dioxide 22.4, Anion Gap 9, BUN 6, Creatinine0.51 L, Estim Creat Clear Calc 146.22, Est GFR (MDRD) Non-Af 106, BUN/CreatinineRatio 10.9, Glucose 123 H, Calcium 8.2, TSH 10.400 H, Free T4 1.10 Micro: Microbiology 03/04/25 14:20 Incision/Surgical Site Gram Stain - Final 03/04/25 10:40 Wound Drainage - Back Gram Stain - Final 03/05/25 1533 <Electronically signed by Clara Vega MD> Cosigner Signature (if applicable): CC: Dr. Hu Hairston MD~ Signed [facility] Work Phone: [phone]) 764-937107-07-2025 Discharge summary [facility] Medical Records Department [address] [place] [id number] Discharge Summary 03/05/25 1613 MR#: [id number] Acct: [id number] Name: BOAZ GOLDSTEIN Rep #:[id number] : 1965 59 From: Patti Cornejo MD PCP: Dr. Hu Hairston MD Status:ADM I N Location: [place] [address] Providers Date of Admission: 03/04/25 Date of Discharge: 03/05/25 Primary Care Physician: Dr. Hu Hairtson MD Consultations 03/04/25 09:21 Consult: General Surgery Routine Consulting Provider: Surendra De Luna Reason for Consult: left posterolateral chest wall abscess EMERGENT Consult: No Notified: Yes Date Notified: 03/04/25 Time Notified: 09:21 Method of Notification: Verbal 03/04/25 14:50 Consult: Infectious Disease Routine Consulting Provider: Clara Vega Reason for Consult: left upper back abscess, allergic to PCN AND cephalo. LOWPLT On Vanco,CLI EMERGENT Consult: No Notified: Yes Date Notified: 03/04/25 Time Notified: 14:50 Method of Notification: Text Reason For Visit: LEFT LATERAL LATISSIMUS DORSI MUSCLE Diagnosis Discharge Diagnosis (1) Abscess: Status: Acute Code(s): L02.91 - Cutaneous abscess, unspecified (2) Cellulitis: Status: Acute Code(s): L03.90 - Cellulitis, unspecified Qualifiers: Site of cellulitis: trunk Site of cellulitis of trunk: unspecified site Qualified Code(s): L03.319 - Cellulitis of trunk, unspecified Plan: DISCHARGE DIAGNOSES: #1. Left posterior lateral chest wall abscess with surrounding cellulitis possibly secondary to recent insect bite but uncertain, unclear organism #2. Thrombocytopenia complicated by petechial rash in left lower extremity, unclear etiology #3. Hypokalemia, resolved #4. Normocytic anemia, new in chronicity, likely related with #1 intervention but unclear etiology #5. Hypothyroidism with abnormal TSH, subclinical #6. Chronic COPD #7. Anxiety and depression #8. Hypertension #9. Hyperlipidemia #10. Tobacco Abuse #11. Obesity Medications at Discharge Home Medications amlodipine 5 mg tablet 5 mg PO DAILY #90 tabs 05/07/22 atorvastatin 10 mg tablet 10 mg PO QHS #90 tabs 05/07/22 albuterol sulfate 90 mcg/actuation aerosol inhaler 2 puff inhalation Q4H PRN shortness of breath orwheezing 02/17/24 aspirin 81 mg chewable tablet 1 tab PO DAILY 03/03/25 levothyroxine 137 mcg tablet 137 mcg PO DAILY 03/04/25 cefdinir 300 mg capsule 300 mg PO BID 7 days #14 caps 03/05/25 oxycodone 5 mg tablet 5 mg PO Q6H PRN PRN Pain Score 6-10 5 days #20 tabs 03/05/25 Hospital Course Operations - (OR 03/04/25 Incision and drainage of left upper back abscess with local anesthetic per Dr. De Luna.) Procedures None Summary of Care Provided Minutes Spent on Discharge: 35 Hospital Course: The patient is a 59 y/o F w/ PMHx: COPD, Tobacco use, HTN, HLD, Obesity, Anxietyand Depression, Hypothyroidism who presented to the [facility] ED on 03/04/2025 with history of recent bug bites to the left flank seen in the EDthe day prior for an I&D with noted a subcutaneous abscess on the left posteriorlateral thorax however she had onset of fever prompting return and admissionforevaluation. Initial CT chest with initially no underlying fluid density or abscess formation however examination concerning for subcutaneous abscess/phlegmon, general surgery consulted and patientstatus post 03/04/25 I&D of the left upper back abscess under local anesthetic, maintained on IV v ancomycin, pending wound culture, general surgery following and awaiting infectious disease evaluation. Per 03/05/2025 surgery evaluation with recommendation to defer packing, allowance of showering but no submersion, plan follow-up outpatient with general surgery in 2 weeks following discharge. 025 and repeat I&D culture 03/04/2025 pending. Infectious disease evaluation 03/05/25 with recommendation given improvement for transition to cefdinir 300 mg p.o. twice daily for an additional 5 to 7days. Patient with thrombocytopenia complicated by petechial rash in the left lower extremity of unclear etiology, ED presentation 03/03/25 platelet count 126, previous to this 11/2013 platelet count 144, 01/2025 platelet count 151, has seemed to vacillate, unclear exact etiology, lower suspicion Bactrim etiology as patient had started Bactrim following the onset of this and not previous to this, initially been on Lovenox which was discontinued and patient cautiously continued on baby aspirin with platelet count 119. Admission initial presentation potassium 3.1, potassium supplementation administered, 03/05/25 BMP with potassium 3.7. Admission hemoglobin 12.5, MCV 92.8, status post interventions above as noted, repeat 03/05/25 hemoglobin 11.7, MCV 94.1. Upon presentation TSH obtained and noted to be 10.4 however free T4 normal range at 1.10, given acute setting felt subclinical and recommended follow-up outpatient for repeat assessment. 03/05/2025 patient clinically improved with no further drainage with no fevers andimproved labs therefore given patient clinically improved quicker than expected on antibiotic therapy status post I&D with dressing changes and resolved electrolytesas well as stable platelets infectious disease felt appropriate fordischarge to home. Discussed also with general surgery and they agreed with herdischarge as well. Patient discharged on short courseof narcotic therapy in addition to additional course per infectious disease recommendation of cefdinir 300 mg p.o. twice daily would recommend follow-up in 2 weeks with general surgery with dressing c hanges/site care per their recommendations in addition tofollow-up with PCP within 1 to 2 weeks. Recommended follow-up CBC, BMP as well as thyroid function studies outpatient with PCP. Weight / BMI Weight Weight: 237 lb Body Mass Index (BMI) 37.0 ABG / Lab / Microbiology Data 03/05/25 04:29 03/05/25 04:29 Laboratory: Laboratory Results - last 24 hr 03/04/25 22:27: Vancomycin Trough 13.4 03/05/25 04:29: WBC 5.9, RBC 3.74 L, Hgb 11.7 L, Hct 35.2 L, MCV 94.1, MCH 31.3,MCHC 33.2, RDW Std Deviation 52.0 H, RDW Coeff of Vinicio 14.9 H, Plt Count 119 L, MPV 12.0, Immature Gran % (Auto) 0.500, Neut % (Auto) 61.1, Lymph % (Auto) 26.9,Wolfe % (Auto) 7.6, Eos % (Auto) 3.2, Baso % (Auto) 0.7, Absolute Neuts (auto) 3.6, Absolute Lymphs (auto) 1.59, Nucleated RBC % 0, Dohle Bodies 1+, Platelet Estimate SLT DEC, Polychromasia 1+, Anisocytosis 1+, Ovalocytes 1+, Sodium 139, Potassium 3.7, [id number], Carbon Dioxide 22.4, Anion Gap 9, BUN 6, Creatinine0.51 L, Estim Creat Clear Calc 146.22, Est GFR (MDRD) Non-Af 106, BUN/CreatinineRatio 10.9, Glucose 123 H, Calcium 8.2, TSH 10.400 H, Free T4 1.10 Microbiology: Microbiology 03/04/25 14:20 Incision/Surgical Site Gram Stain - Final 03/04/25 10:40 Wound Drainage - Back Gram Stain - Final D/C Instructions DC O2, CPAP, BIPAP Needs Home O2 Discharge instructions: No Meaningful Use Info Meaningful Use Meaningful Use Diagnoses (Choose all that apply): None applicable Ischemic Stroke Statin Dosing Therapy Reference: STATIN DOSE THERAPY REFERENCE: * Patients > 75 years receive moderate or high dose statin therapy. * Patients 75 years or YOUNGER should receive HIGH intensity statin dose unless contraindicated. You will be required to document reason for non-treatment if statin daily dose does not meet guidelines. HIGH DOSE STATIN THERAPY DAILY Atorvastatin > than or = to 40 mg Rosuvastatin > than or = to 20 mg Amlodipine + Atorvastatin > than or = to 2.5/40 mg Ezetimibe + Simvastatin 10/80 mg Simvastatin 80mg Discharge Plan Admission Admit Date/Time: 03/04/25 00:43 Primary Reason for Your Visit: Left posterior lateral chest wall abscess with surrounding cellulitis Attending Provider: Patti Cornejo Primary Care Provider: Hu Hairston Consulting Providers: Dick Perez; Surendra De Luna; Clara Vega; Benny Mejia Instructions Patient Instructions: Cellulitis, Abscess Drainage, ED Abscess Incision And ... Additional Instructions / Restrictions: ADDITIONAL INSTRUCTIONS: #1. Left posterior lateral chest wall abscess with surrounding cellulitis, uncertain organism: --Initial CT chest with initially no underlying fluid density or abscess formation however examination concerning for subcutaneous abscess/phlegmon, general surgery consulted, status post 03/04/25 I&D of the left upper back abscessunder local anesthetic. --Treated w/ IV vancomycin pending wound culture; however 03/05/25 ID evaluation and given improvement recommended transition to cefdinir 300 mg twice daily for an additional 7 day course. --General L lateral chest care per Surgery: Defer packing, allowance of showering but no submersionin water, plan follow-up outpatient with general surgery in [address] dry dressing daily and as needed. --Short course of oral pain regimen rx at discharge but recommend transition to tylenol and ibuprofen once able and avoidance for further narcotics once pain improving. #2. Thrombocytopenia complicated by petechial rash in left lower extremity: --Initially had been on lovenox but discontinued, please have repeat complete blood count (CBC) with primary care at follow-up. #3. Hypokalemia: --Admission Potassium 3.1, supplementation administered and corrected, pelase have repeat basic metabolic panel at follow-up with primary care physician. #4. Normocytic anemia, new in chronicity, likely related with #1 intervention: --Admission hemoglobin 12.5, MCV 92.8, status post interventions above as noted,repeat 03/05/25 hemoglobin 11.7, MCV 94.1, encourage continued evaluation and repeat CBC evaluation outpatient. #5. Hypothyroidism with abnormal TSH: --Presentation TSH 10.4 however free T4 normal range with 1.10, given the acute setting recommend repeat thyroid function studies outpatient and alteration in medication at that time if appropriate. Discharge Orders/Prescriptions Prescriptions: New oxycodone 5 mg Tablet 5 mg PO Q6H PRN PRN (Reason: Pain Score 6-10) 5 Days Qty: 20 0RF cefdinir 300 mg capsule 300 mg PO BID 7 Days Qty: 14 0RF Continued amlodipine 5 mg tablet 5 mg PO DAILY Qty: 90 3RF atorvastatin 10 mg tablet 10 mg PO QHS Qty: 90 3RF albuterol sulfate 90 mcg/actuation HFA aerosol inhaler 2 puff inhalation Q4H PRN (Reason: shortness of breath or wheezing) aspirin 81 mg tablet,chewable 1 tab PO DAILY levothyroxine 137 mcg tablet 137 mcg PO DAILY Referrals / Follow Up: Surendra De Luna MD [Med Staff - Active Staff] - (Please follow-up in 2 weeks perSurgery request. Call office for earlier evaluation in concerns arise.) Hu Hairston MD [Primary Care Provider] - (Follow-up in 1-2 weeks for re-evaluation.) Disposition Disposition (needs filled in before D/C Order can be placed): Home, Self Care Charges/Coding Visit Charges Inpatient E&M: 91647 Disch Hosp >30min 03/05/25 1618 Cosigner Signature (if applicable): CC: Dr. Patti Cornejo MD; Dr. Hu Hairston MD~ Signed [facility]07-07-2025 [facility] Medical Records Department [address] [place] [address] Discharge Summary 03/05/25 1613 MR#: [id number] Acct: [id number] Name: BOAZ GOLDSTEIN Rep #: [id number] : 1965 59 From: Patti Cornejo MD PCP: Dr. Hu Hairston MD Status:ADM IN Location: [facility] [place]-3 Providers Date of Admission: 03/04/25 Date of Discharge: 03/05/25 Primary Care Physician: Dr. Hu Hairston MD Consultations 03/04/25 09:21 Consult: General Surgery Routine Consulting Provider: Surendra De Luna Reason for Consult: left posterolateral chest wall abscess EMERGENT Consult: No MD Notified: Yes Date Notified: 03/04/25 Time Notified: 09:21 Method of Notification: Verbal 03/04/25 14:50 Consult: Infectious Disease Routine Consulting Provider: Clara Vega Reason for Consult: left upper back abscess, allergic to PCN AND cephalo. LOW PLT On Vanco,CLI EMERGENT Consult: No MD Notified: Yes Date Notified: 03/04/25 Time Notified: 14:50 Method of Notification: Text Reason For Visit: LEFT LATERAL LATISSIMUS DORSI MUSCLE Diagnosis Discharge Diagnosis (1) Abscess: Status: Acute Code(s): L02.91 - Cutaneous abscess, unspecified (2) Cellulitis: Status: Acute Code(s): L03.90 - Cellulitis, unspecified Qualifiers: Site of cellulitis: trunk Site of cellulitis of trunk: unspecified site Qualified Code(s): L03.319 - Cellulitis of trunk, unspecified Plan: DISCHARGE DIAGNOSES: #1. Left posterior lateral chest wall abscess with surrounding cellulitis possibly secondary to recent insect bite but uncertain, unclear organism #2. Thrombocytopenia complicated by petechial rash in left lower extremity, unclear etiology #3. Hypokalemia, resolved #4. Normocytic anemia, new in chronicity, likely related with #1 intervention but unclear etiology #5. Hypothyroidism with abnormal TSH, subclinical #6. Chronic COPD #7. Anxiety and depression #8. Hypertension #9. Hyperlipidemia #10. Tobacco Abuse #11. Obesity Medications at Discharge Home Medications amlodipine 5 mg tablet 5 mg PO DAILY #90 tabs 05/07/22 atorvastatin 10 mg tablet 10 mg PO QHS #90 tabs 05/07/22 albuterol sulfate 90 mcg/actuation aerosol inhaler 2 puff inhalation Q4H PRN shortness of breath or wheezing 02/17/24 aspirin 81 mg chewable tablet 1 tab PO DAILY 03/03/25 levothyroxine 137 mcg tablet 137 mcg PO DAILY 03/04/25 cefdinir 300 mg capsule 300 mg PO BID 7 days #14 caps 03/05/25 oxycodone 5 mg tablet 5 mg PO Q6H PRN PRN Pain Score 6-10 5 days #20 tabs 03/05/25 Hospital Course Operations - (OR 03/04/25 Incision and drainage of left upper back abscess with local anesthetic per Dr. De Luna.) Procedures None Summary of Care Provided Minutes Spent on Discharge: 35 Hospital Course: The patient is a 59 y/o F w/ PMHx: COPD, Tobacco use, HTN, HLD, Obesity, Anxiety and Depression, Hypothyroidism who presented to the [facility] ED on 03/04/2025 with history of recent bug bites to the left flank seen in the ED the day prior for an I D with noted a subcutaneous abscess on the left posterior lateral thorax however she had onset of fever prompting return and admission for evaluation. Initial CT chest with initially no underlying fluid density or abscess formation however examination concerning for subcutaneous abscess/phlegmon, general surgery consulted and patient status post 03/04/25 I D of the left upper back abscess under local anesthetic, maintained on IV vancomycin, pending wound culture, general surgery following and awaiting infectious disease evaluation. Per 03/05/2025 surgery evaluation with recommendation to defer packing, allowance of showering but no submersion, plan follow-up outpatient with general surgery in 2 weeks following discharge. 03/04/2025 and repeat I D culture 03/04/2025 pending. Infectious disease evaluation 03/05/25 with recommendation given improvement for transition to cefdinir 300 mg p.o. twice daily for an additional 5 to 7 days. Patient with thrombocytopenia complicated by petechial rash in the left lower extremity of unclear etiology, ED presentation 03/03/25 platelet count 126, previous to this 11/2013 platelet count 144, 01/2025 platelet count 151, has seemed to vacillate, unclear exact etiology, lower suspicion Bactrim etiology as patient had started Bactrim following the onset of this and not previous to this, initially been on Lovenox which was discontinued and patient cautiously continued on baby aspirin with 03/05/25 platelet count 119. Admission initial presentation potassium 3.1, potassium supplementation administered, 03/05/25 BMP with potassium 3.7. Admission hemoglobin 12.5, MCV 92.8, status post interventions above as noted, repeat 03/05/25 hemoglobin 11.7, MCV 94.1. Upon presentation TSH obtained and noted to be 10.4 however free T4 normal range at 1.10, given acute setting felt subclinical and rec (more content not included)... [facility]07-07-2025 Consult note [facility] Medical Records Department [address] [place] [address] Consultation - Infectious Dx 03/05/25 1530 MR#: [id number] Acct: [id number] Name: BOAZ GOLDSTEIN Rep #:[id number] : 1965 59 From: Clara de luna MD PCP: Dr. Hu Hairston MD Status:ADM I N Location: [place] SI500-9 Assessment & Plan Assessment/Plan (1) Abscess: PLAN: I&D done, cx pending, on vanc. H/o hives with PCN and keflex. Plan at this point would be5-7 days po cefdinir 300mg bid at discharge. Will follow, thank you (2) Cellulitis: QUALIFIERS: Site of cellulitis: trunk Site of cellulitis of trunk: unspecified site Qualified Code(s): L03.319 - Cellulitis of trunk, unspecified HPI Consult Data Date of Consult: 03/05/25 HPI Narrative Reason for Consultation: abscess HPI Narrative: BOAZ GOLDSTEIN, is a 59 F who presented 03/03 with two days of L flank redness, pain, and fever. No known inciting event, thought it was a spider bite. Came to ED, admitted on vanc after receiving clinda. Taken for I&D, feeling better. Full ROS performed and neg except as noted above. [facility] Medical History Alcohol use Abscessed tooth Post-menopausal [...] pulmonary disease) 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 Home Medications ?Medication ?Instructions ?Recorded ?Last Taken ?Type amlodipine 5 mg tablet 5 mg PO DAILY #90 tabs 05/0701/26/25 Rx atorvastatin 10 mg tablet 10 mg PO QHS #90 tabs 01/25/25 Rx albuterol sulfate 90 mcg/actuation 2 puff inhalation Q 4H PRN 02/17/24 02/22/24 History aerosol inhaler shortness of breath or wheez ing aspirin 81 mg chewable tablet 1 tab PO DAILY 03/03/25 Unknown History levothyroxine 137 mcg tablet 137 mcg PO DAILY 03/04/25 Unknown History Allergy/AdvReac Type Severity Reaction Status Date / Time cephalexin monohydrate (From Allergy Hives Verified 03/03/25 21:44 Keflex) latex Allergy Rash Verified 03/03/25 21:44 Penicillins (PCN) Allergy Hives Verified 03/03/25 21:44 Family History Grandfather Kidney disease Heart disease Colon cancer Sister Lung cancer Seizures Mother Cancer Diabetes Daughter Hypertension Thyroid disorder Surgical History Hx of colonoscopy History of cholecystectomy History of delivery Social History Smoking Status: Former smoker second hand exposure: Yes quit status: not considering quitting alcohol intake: never substance use type: does not use caffeine: Yes what type of physical activity do you participate in: none seatbelt use: always do you feel safe at home: Yes additional social history: Employed [employer] single Physical Exam Const alert, oriented x3 and no apparent distress General Appearance: cooperative HEENT normocephalic and head/scalp atraumatic Eyes PERRL and EOMs intact bilaterally Neck supple and No nodes Resp normal air movement and clear to auscultation bilaterally Cardio regular rate and regular rhythm GI soft to palpation, non-tender and non-distended Extremity General Extremity: Negative for edema Skin Skin Narrative: L flank dressing, mild redness Neuro CN's II-XII intact bilaterally Lab / Micro Data Attestation: I reviewed the patient's lab results. 03/05/25 04:29 03/05/25 04:29 Labs: Laboratory Results - last 24 hr 03/04/25 22:27: Vancomycin Trough 13.4 03/05/25 04:29: WBC 5.9, RBC 3.74 L, Hgb 11.7 L, Hct 35.2 L, MCV 94.1, MCH 31.3,MCHC 33.2, RDW Std Deviation 52.0 H, RDW Coeff of Vinicio 14.9 H, Plt Count 119 L, MPV 12.0, Immature Gran % (Auto) 0.500, Neut % (Auto) 61.1, Lymph % (Auto) 26.9,Wolfe % (Auto) 7.6, Eos % (Auto) 3.2, Baso % (Auto) 0.7, Absolute Neuts (auto) 3.6, Absolute Lymphs (auto) 1.59, Nucleated RBC % 0, Dohle Bodies 1+, Platelet Estimate SLT DEC, Polychromasia 1+, Anisocytosis 1+, Ovalocytes 1+, Sodium 139, Potassium 3.7, [id number], Carbon Dioxide 22.4, Anion Gap 9, BUN 6, Creatinine0.51 L, Estim Creat Clear Calc 146.22, Est GFR (MDRD) Non-Af 106, BUN/CreatinineRatio 10.9, Glucose 123 H, Calcium 8.2, TSH 10.400 H, Free T4 1.10 Micro: Microbiology 03/04/25 14:20 Incision/Surgical Site Gram Stain - Final 03/04/25 10:40 Wound Drainage - Back Gram Stain - Final 03/05/25 1533 Cosigner Signature (if applicable): CC: Dr. Hu Hairston MD~ Signed [facility]07-07-2025 Progress note Author Patti Cornejo [facility] Note Date/Time March 05, 2025 11:34 am [facility] Medical Records Department [address] [place] [address] Progress Note - Hospitalist 03/05/25 0714 MR#: [id number] Acct: [id number] Name: BOAZ GOLDSTEIN Rep #:[id number] : 1965 59 From: Patti Cornejo MD PCP: Dr. Hu Hairston MD Status:ADM I N Location: [place] [address] Reason for Visit Reason for Visit: Diagnoses Thrombocytopenia, unspecified (03/04/25) Obesity, unspecified (03/04/25) Hypokalemia (03/04/25) Cutaneous abscess, unspecified (03/04/25) Cellulitis of trunk, unspecified (03/04/25) Tobacco use (03/04/25) Subjective Subjective Patient with no acute events overnight per self and per nursing report. She notes the left flank discomfort status post I&D pain rated 5 out of 10 in severity, notes improved since initial ED arrival. She denies any copious drainage from this. She notes some nausea previously but no emesis but is eagerto have breakfast. Patient denies fevers, chills, nausea, emesis, abdominal pain, chest pain or dyspnea. Objective Data Objective Data Vital Signs: Vital Signs Temp Pulse Resp BP Pulse Ox O2 Del Method O2 Flow Rate 98.1 F 71 18 119/74 95 Nasal Cannula 2 03/05/25 04:00 03/05/25 04:00 03/05/25 04:00 03/05/25 04:00 03/05/25 04:00 03/05/25 04:00 03/05/25 04:00 Oxygen Flow Rate (L/min) 2 Oxygen Delivery Method Nasal Cannula Weight: 237 lb Body Mass Index (BMI) 37.0 Intake & Output: Intake and Output for Last 24 Hours 03/03/25 03/04/25 03/05/25 23:59 23:59 23:59 Intake Total 500 / 500 2134 / 2134 582 / 582 Balance 500 / 500 2134 / 2134 582 / 582 Lab / Micro Data 03/05/25 04:29 03/05/25 04:29 Labs: Laboratory Results - last 24 hr 03/04/25 09:44: WBC 4.2 L, RBC 4.00 L, Hgb 12.5, Hct 37.1, MCV 92.8, MCH 31.3, MCHC 33.7, RDW Std Deviation 50.8 H, RDW Coeff of Vinicio 14.8 H, Plt Count 114 L, MPV 10.5, Immature Gran % (Auto) 0.200, Neut % (Auto) 63.0, Lymph % (Auto) 25.5,Wolfe % (Auto) 8.9, Eos % (Auto) 1.7, Baso % (Auto) 0.7, Absolute Neuts (auto) 2.6, Absolute Lymphs (auto) 1.06, Nucleated RBC % 0, Sodium 140, Potassium 3.9, Chloride 109 H, Carbon Dioxide 20.0 L, Anion Gap 11, BUN 6, Creatinine 0.56 L, Estim Creat Clear Calc 133.17, Est GFR (MDRD) Non-Af 104, BUN/Creatinine Ratio 11.3, Glucose 166 H, Calcium 7.9, Phosphorus 1.8 L, Magnesium 2.1 03/04/25 10:40: S.aureus Protein A PCR NEGATIVE, MRSA (PCR) Negative 03/04/25 22:27: Vancomycin Trough 13.4 07/07/25 04:29: WBC 5.9, RBC 3.74 L, Hgb 11.7 L, Hct 35.2 L, MCV 94.1, MCH 31.3,MCHC 33.2, RDW Std Deviation 52.0 H, RDW Coeff of Vinicio 14.9 H, Plt Count 119 L, MPV 12.0, Immature Gran % (Auto) 0.500, Neut % (Auto) 61.1, Lymph % (Auto) 26.9,Wolfe % (Auto) 7.6, Eos % (Auto) 3.2, Baso % (Auto) 0.7, Absolute Neuts (auto) 3.6, Absolute Lymphs (auto) 1.59, Nucleated RBC % 0, Dohle Bodies 1+, Platelet Estimate SLT DEC, Polychromasia 1+, Anisocytosis 1+, Ovalocytes 1+, Sodium 139, Potassium 3.7, Chloride 107, Carbon Dioxide 22.4, Anion Gap 9, BUN 6, Creatinine0.51 L, Estim Creat Clear Calc 146.22, Est GFR (MDRD) Non-Af 106, BUN/CreatinineRatio 10.9, Glucose 123 H, Calcium 8.2, TSH 10.400 H, Free T4 1.10 Physical Exam Narrative Physical Examination: General: Awake, alert, oriented x 3 and cooperative, seated upright in the [facility] bed, notes some discomfort of the left flank, rating it 5 out of 10 in severity. Skin: Normal color, normal turgor, no icterus, no cyanosis except occasional stage ecchymoses, abrasion, left lateral flank status post I&D with no active drainage noted. HEENT: AT/NC, EOMI, PERRLA, MMM. Lungs: Mildly diminished, greater bases, poor effort, no rales, ronchi or wheezing. Heart: Regular rate and rhythm; no gallop, rub audible. Abdomen: Soft, obese, NTTP, ND, normal BS. Extremities: No cyanosis, no clubbing, mild ankle edema, chronic. Neurological: Patient awake, alert, oriented as noted, cognitive function intact; pupils equally reactive to light and accommodation, cranial nerves grossly normal, moving all 4 extremities, no focal deficits, strength improved, mildly to moderately global decrease Psychiatric: Affect appears fatigued otherwise normal, no acute evidence of depressive or anxiety feelings. Assessment & Plan Assessment/Plan (1) Cellulitis: QUALIFIERS: Site of cellulitis: trunk Site of cellulitis of trunk: unspecified site Qualified Code(s): L03.319 - Cellulitis of trunk, unspecified (2) Abscess: PLAN: Plan The patient is a 59 y/o F w/ PMHx: COPD, Tobacco use, HTN, HLD, Obesity, Anxietyand Depression, Hypothyroidism who presents to the [facility] 03/04/2025 with history of recent bug bites to the left flank seen in the ED the day prior for an I&D with noted a subcutaneous abscess on the left posteriorlateral thorax however she had onset of fever prompting return and admission forevaluation. #1. Left posterior lateral chest wall abscess with surrounding cellulitis possibly secondary to recent insect bite but uncertain: Initial CT chest with initially no underlying fluid density or abscess formation however examination concerning for subcutaneous abscess/phlegmon, general surgery consulted and patient status post 03/04/25 I&D of the left upper back abscess under local anesthetic, maintained on IV vancomycin, pending wound culture, general surgery following and awaiting infectious disease evaluation. Per 03/05/2025 surgery evaluation with recommendation to defer packing, allowance of showering but no submersion, plan follow-up outpatient with general surgery in 2 weeks following discharge. 03/04/2025 and repeat I&D culture 03/04/2025 pending. Will await infectious disease input and may potentially consider discharge 03/05/2025 given improved clinical appearance. #2. Thrombocytopenia complicated by petechial rash in left lower extremity: Recent 03/03/25 platelet count 126, previous to this 11/2013 platelet count 144, 01/2025 platelet count 151, has seemed to vacillate, unclear exact etiology, lower suspicion Bactrim etiology as patient had started Bactrim following the onset of this and not previous to this, initially been on Lovenox which is discontinued, cautiously continued on baby aspirin, 03/05/25 platelet count 119, stable, continue to trend. #3. Hypokalemia: Admission initial presentation potassium 3.1, potassium supplementation administered, 03/05/25 BMP with potassium 3.7, corrected, continueto trend. #4. Normocytic anemia, new in chronicity, likely related with #1 intervention: Admission hemoglobin 12.5, MCV 92.8, status post interventions above as noted, repeat 03/05/25 hemoglobin 11.7, MCV 94.1, will continue to closely trend. #5. Hypothyroidism with abnormal TSH: Will continue patient on levothyroxine regimen, presentation TSH 10.4 however free T4 normal range with 1.10, given theacute setting we will recommend repeat thyroid function studies outpatient and alteration in medication at that time if appropriate. #6. Chronic COPD: Per current medication home list not on regimen, encourage tobacco cessation, will have PRN albuterol, HOB, IS parameters. #7. Anxiety and depression: Per current list on a regimen, encourage continued follow-up outpatient evaluation as previously arranged #8. Hypertension: Continue home regimen including amlodipine, PRN hydralazine. #9. Hyperlipidemia: Will continue patient on statin therapy. #10. Tobacco Abuse: Encouraged cessation, inpatient consultation per RT, NR if desired. #11. Obesity: Weight loss and lifestyle changes encouraged. #12. DVT prophylaxis: Had initially been on Lovenox however with platelet countthis was discontinued, maintain on SCDs. Charges/Coding Visit Charges Inpatient E&M: 82414 Subs Hosp L3 03/05/25 1134 <Electronically signed by Patti Cornejo MD> Cosigner Signature (if applicable): CC: ~ Signed [facility] Work Phone: 1(536) 121-732907-07-2025 Progress note Author Surendra De Luna [facility] Note Date/Time March 05, 2025 10:22 am [facility] Medical Records Department [address] [place] [address] Progress Note - Surgery 03/05/25 0844 MR#: [id number] Acct: [id number] Name: BOAZ GOLDSTEIN Rep #:[id number] : 1965 59 From: Surendra Knapp PCP: Dr. Hu Hairston MD Status:ADM I N Location: [place] [address]-1 Subjective Subjective Patient seen and evaluated during AM rounds. She reports that she is feeling well and better than yesterday. She denies any significant discomfort from her back. Objective Data Objective Data Vital Signs: Vital Signs Temp Pulse Resp BP Pulse Ox O2 Del Method O2 Flow Rate 98.1 F 71 18 119/74 95 Nasal Cannula 2 03/05/25 04:00 03/05/25 04:00 03/05/25 04:00 03/05/25 04:00 03/05/25 04:00 03/05/25 04:00 03/05/25 04:00 Oxygen Flow Rate (L/min) 2 Oxygen Delivery Method Nasal Cannula Weight: 237 lb Body Mass Index (BMI) 37.0 Intake & Output: Intake and Output for Last 24 Hours 03/03/25 03/04/25 03/05/25 23:59 23:59 23:59 Intake Total 500 / 500 2134 / 2134 582 / 582 Balance 500 / 500 2134 / 2134 582 / 582 Lab / Micro Data 03/05/25 04:29 03/05/25 04:29 Labs: Laboratory Results - last 24 hr 03/04/25 09:44: WBC 4.2 L, RBC 4.00 L, Hgb 12.5, Hct 37.1, MCV 92.8, MCH 31.3, MCHC 33.7, RDW Std Deviation 50.8 H, RDW Coeff of Vinicio 14.8 H, Plt Count 114 L, MPV 10.5, Immature Gran % (Auto) 0.200, Neut % (Auto) 63.0, Lymph % (Auto) 25.5,Wolfe % (Auto) 8.9, Eos % (Auto) 1.7, Baso % (Auto) 0.7, Absolute Neuts (auto) 2.6, Absolute Lymphs (auto) 1.06, Nucleated RBC % 0, Sodium 140, Potassium 3.9, Chloride 109 H, Carbon Dioxide 20.0 L, Anion Gap 11, BUN 6, Creatinine 0.56 L, Estim Creat Clear Calc 133.17, Est GFR (MDRD) Non-Af 104, BUN/Creatinine Ratio 11.3, Glucose 166 H, Calcium 7.9, Phosphorus 1.8 L, Magnesium 2.1 03/04/25 10:40: S.aureus Protein A PCR NEGATIVE, MRSA (PCR) Negative 03/04/25 22:27: Vancomycin Trough 13.4 03/05/25 04:29: WBC 5.9, RBC 3.74 L, Hgb 11.7 L, Hct 35.2 L, MCV 94.1, MCH 31.3,MCHC 33.2, RDW Std Deviation 52.0 H, RDW Coeff of Vinicio 14.9 H, Plt Count 119 L, MPV 12.0, Immature Gran % (Auto) 0.500, Neut % (Auto) 61.1, Lymph % (Auto) 26.9,Wolfe % (Auto) 7.6, Eos % (Auto) 3.2, Baso % (Auto) 0.7, Absolute Neuts (auto) 3.6, Absolute Lymphs (auto) 1.59, Nucleated RBC % 0, Dohle Bodies 1+, Platelet Estimate SLT DEC, Polychromasia 1+, Anisocytosis 1+, Ovalocytes 1+, Sodium 139, Potassium 3.7, Chloride 107, Carbon Dioxide 22.4, Anion Gap 9, BUN 6, Creatinine0.51 L, Estim Creat Clear Calc 146.22, Est GFR (MDRD) Non-Af 106, BUN/CreatinineRatio 10.9, Glucose 123 H, Calcium 8.2, TSH 10.400 H, Free T4 1.10 Physical Exam Const oriented x3 and no apparent distress Skin Skin Narrative: Persistent erythematous change with slight superficial sloughing and induration of left upper back. No fluctuance appreciated. Packing is removed from wound and there is no purulent drainage. Assessment & Plan Assessment/Plan (1) Abscess: PLAN: Patient is 59-year-old female admitted for inpatient management of left upper back soft tissue infection. She reportedly failed outpatient management due to progressive fevers and concern for insufficient drainage. She underwent CT imaging of this area on her intake at her repeat ER visit which showed some skin thickening but no loculated fluid collections. Yesterday I completed bedside repeat incision and drainage procedure by unroofing the small cavity. Patient tolerated the procedure well and this morning there is no purulence when the packing is removed. Given that the area is unroofed I do not find need to recommend continued packing. At this point patient would be okay to shower and allow water to enter the area but should be diligent about expressing it back out. I tried to establish expectations that it would likely be a week or so before her inflammatory change is nearing resolution with proper antibiotic therapy. Given that patient has been afebrileand wound is stable and now well draining she could be considered for discharge home from a surgical standpoint. Would asked that she is directed to follow-up with me in outpatient surgery clinic 2 weeks following discharge. Surendra De Luna MD General Surgery Endocrine Surgery Pager: [facility] [address] [place] [address], [facility], [address] [place] [address] Office: [phone] Charges/Coding Visit Charges Inpatient E&M: 44485 Subs Hosp L2 03/05/25 1022 <Electronically signed by Surendra De Luna MD> Cosigner Signature (if applicable): CC: ~ Signed [facility] Work Phone: 1(133) 113-556507-07-2025 Progress note [facility] Medical Records Department [address] [place] [id number] Progress Note - Hospitalist 03/05/25713 MR#: [id number] Acct: [id number] Name: BOAZ GOLDSTEIN Rep #:[id number] : 1965 59 From: Patti Cornejo MD PCP: Dr. Hu Hairston MD Status:ADM I N Location: [facility] [place]-5 Reason for Visit Reason for Visit: Diagnoses Thrombocytopenia, unspecified (03/04/25) Obesity, unspecified (03/04/25) Hypokalemia (03/04/25) Cutaneous abscess, unspecified (03/04/25) Cellulitis of trunk, unspecified (03/04/25) Tobacco use (03/04/25) Subjective Subjective Patient with no acute events overnight per self and per nursing report. She notes the left flank discomfort status post I&D pain rated 5 out of 10 in severity, notes improved since initial ED arrival. She denies any copious drainage from this. She notes some nausea previously but no emesis but is eagerto have breakfast. Patient denies fevers, chills, nausea, emesis, abdominal pain, chest painor dyspnea. Objective Data Objective Data Vital Signs: Vital Signs Temp Pulse Resp BP Pulse Ox O2 Del Method O2 Flow Rate 98.1 F 71 18 119/74 95 Nasal Cannula 2 03/05/25 04:00 03/05/25 04:00 03/05/25 04:00 03/05/25 04:00 03/05/25 04:00 03/05/25 04:00 03/05/25 04:00 Oxygen Flow Rate (L/min) 2 Oxygen Delivery Method Nasal Cannula Weight: 237 lb Body Mass Index (BMI) 37.0 Intake & Output: Intake and Output for Last 24 Hours 03/03/25 03/04/25 03/05/25 23:59 23:59 23:59 Intake Total 500 / 500 2134 / 2134 582 / 582 Balance 500 / 500 2134 / 2134 582 / 582 Lab / Micro Data 03/05/25 04:29 03/05/25 04:29 Labs: Laboratory Results - last 24 hr 03/04/25 09:44: WBC 4.2 L, RBC 4.00 L, Hgb 12.5, Hct 37.1, MCV 92.8, MCH 31.3, MCHC 33.7, RDW Std Deviation 50.8 H, RDW Coeff of Vinicio 14.8 H, Plt Count 114 L, MPV 10.5, Immature Gran % (Auto) 0.200, Neut % (Auto) 63.0, Lymph % (Auto) 25.5,Wolfe % (Auto) 8.9, Eos % (Auto) 1.7, Baso % (Auto) 0.7, Absolute Neuts (auto) 2.6, Absolute Lymphs (auto) 1.06, Nucleated RBC % 0, Sodium 140, Potassium 3.9, Chloride 109 H, Carbon Dioxide 20.0 L, Anion Gap 11, BUN 6, Creatinine 0.56 L, Estim Creat Clear Calc 133.17, Est GFR (MDRD) Non-Af 104, BUN/Creatinine Ratio 11.3, Glucose 166 H, Calcium 7.9, Phosphorus 1.8 L, Magnesium 2.1 03/04/25 10:40: S.aureus Protein A PCR NEGATIVE, MRSA (PCR) Negative 03/04/25 22:27: Vancomycin Trough 13.4 03/05/25 04:29: WBC 5.9, RBC 3.74 L, Hgb 11.7 L, Hct 35.2 L, MCV 94.1, MCH 31.3,MCHC 33.2, RDW Std Deviation 52.0 H, RDW Coeff of Vinicio 14.9 H, Plt Count 119 L, MPV 12.0, Immature Gran % (Auto) 0.500, Neut % (Auto) 61.1, Lymph % (Auto) 26.9,Wolfe % (Auto) 7.6, Eos % (Auto) 3.2, Baso % (Auto) 0.7, Absolute Neuts (auto) 3.6, Absolute Lymphs (auto) 1.59, Nucleated RBC % 0, Dohle Bodies 1+, Platelet Estimate SLT DEC, Polychromasia 1+, Anisocytosis 1+, Ovalocytes 1+, Sodium 139, Potassium 3.7, [id number], Carbon Dioxide 22.4, Anion Gap 9, BUN 6, Creatinine0.51 L, Estim Creat Clear Calc 146.22, Est GFR (MDRD) Non-Af 106, BUN/CreatinineRatio 10.9, Glucose 123 H, Calcium 8.2, TSH 10.400 H, Free T4 1.10 Physical Exam Narrative Physical Examination: General: Awake, alert, oriented x 3 and cooperative, seated upright in the [facility] bed, notes some discomfort of the left flank, rating it 5 out of 10 in severity. Skin: Normal color, normal turgor, no icterus, no cyanosis except occasional stage ecchymoses, abrasion, left lateral flank status post I&D with no active drainage noted. HEENT: AT/NC, EOMI, PERRLA, MMM. Lungs: Mildly diminished, greater bases, poor effort, no rales, ronchi or wheezing. Heart: Regular rate and rhythm; no gallop, rub audible. Abdomen: Soft, obese, NTTP, ND, normal BS. Extremities: No cyanosis, no clubbing, mild ankle edema, chronic. Neurological: Patient awake, alert, oriented as noted, cognitive function intact; pupils equally reactive to light and accommodation, cranial nerves grossly normal, moving all 4 extremities, no focaldeficits, strength improved, mildly to moderately global decrease Psychiatric: Affect appears fatigued otherwise normal, no acute evidence of depressive or anxiety feelings. Assessment & Plan Assessment/Plan (1) Cellulitis: QUALIFIERS: Site of cellulitis: trunk Site of cellulitis of trunk: unspecified site Qualified Code(s): L03.319 - Cellulitis of trunk, unspecified (2) Abscess: PLAN: Plan The patient is a 59 y/o F w/ PMHx: COPD, Tobacco use, HTN, HLD, Obesity, Anxietyand Depression, Hypothyroidism who presents to the [facility] 03/04/2025 with history of recent bug bites to the left flank seen in the ED the day prior for an I&D with noted a subcutaneous abscess on the left posteriorlateral thorax however she had onset of fever prompting return and admission forevaluation. #1. Left posterior lateral chest wall abscess with surrounding cellulitis possibly secondary to recent insect bite but uncertain: Initial CT chest with initially no underlying fluid density or abscess formation however examination concerning for subcutaneous abscess/phlegmon, general surgery consulted and patient status post 03/04/25 I&D of the left upper back abscess under local anesthetic, maintained on IV vancomycin, pending wound culture, general surgery following and awaiting infectious disease evaluation. Per 03/05/2025 surgery evaluation with recommendation to defer packing, allowance of showering but no submersion, plan follow-up outpatient with general surgery in 2 weeks following discharge. 03/04/2025 and repeat I&D culture 03/04/2025 pending. Will await infectious disease inputand may potentially consider discharge 03/05/2025 given improved clinical appearance. #2. Thrombocytopenia complicated by petechial rash in left lower extremity: Recent 03/03/25 platelet count 126, previous to this 11/2013 platelet count 144, 01/2025 platelet count 151, has seemed to vacillate, unclear exact etiology, lower suspicion Bactrim etiology as patient had started Bactrim following the onset of this and not previous to this, initially been on Lovenox which is discontinued, cautiously continued on baby aspirin, 03/05/25 platelet count 119, stable, continue to trend. #3. Hypokalemia: Admission initial presentation potassium 3.1, potassium supplementation administered, 03/05/25 BMP with potassium 3.7, corrected, continueto trend. #4. Normocytic anemia, new in chronicity, likely related with #1 intervention: Admission [id number], MCV 92.8, status post interventions above as noted, repeat 03/05/25 hemoglobin 11.7, MCV 94.1, will continue to closely trend. #5. Hypothyroidism with abnormal TSH: Will continue patient on levothyroxine regimen, presentation TSH 10.4 however free T4 normal range with 1.10, given theacute setting we will recommend repeat thyroid function studies outpatient and alteration in medication at that time if appropriate. #6. Chronic COPD: Per current medication home list not on regimen, encourage tobacco cessation, will have PRN albuterol, HOB, IS parameters. #7. Anxiety and depression: Per current list on a regimen, encourage continued follow-up outpatientevaluation as previously arranged #8. Hypertension: Continue home regimen including amlodipine, PRN hydralazine. #9. Hyperlipidemia: Will continue patient on statin therapy. #10. Tobacco Abuse: Encouraged cessation, inpatient consultation per RT, NR if desired. #11. Obesity: Weight loss and lifestyle changes encouraged. #12. DVT prophylaxis: Had initially been on Lovenox however with platelet countthis was discontinued, maintain on SCDs. Charges/Coding Visit Charges Inpatient E&M: 43483 Subs Hosp L3 03/05/25 1134 Cosigner Signature (if applicable): CC: ~ Signed [facility]07-07-2025 Progress note [facility] Medical Records Department [address] [place] [address] Progress Note - Surgery 03/05/25 0844 MR#: [id number] Acct: [id number] Name: BOAZ GOLDSTEIN Rep #:[id number] : 1965 59 From: Surendra Knapp PCP: Dr. Hu Hairston MD Status:ADM I N Location: [place] [address] Subjective Subjective Patient seen and evaluated during AM rounds. She reports that she is feeling well and better than yesterday. She denies any significant discomfort from her back. Objective Data Objective Data Vital Signs: Vital Signs Temp Pulse Resp BP Pulse Ox O2 Del Method O2 Flow Rate 98.1 F 71 18 119/74 95 Nasal Cannula 2 03/05/25 04:00 03/05/25 04:00 03/05/25 04:00 03/05/25 04:00 03/05/25 04:00 03/05/25 04:00 03/05/25 04:00 Oxygen Flow Rate (L/min) 2 Oxygen Delivery Method Nasal Cannula Weight: 237 lb Body Mass Index (BMI) 37.0 Intake & Output: Intake and Output for Last 24 Hours 03/03/25 03/04/25 03/05/25 23:59 23:59 23:59 Intake Total 500 / 500 2134 / 2134 582 / 582 Balance 500 / 500 2133 582 / 582 Lab / Micro Data 03/05/25 04:29 03/05/25 04:29 Labs: Laboratory Results - last 24 hr 03/04/25 09:44: WBC 4.2 L, RBC 4.00 L, Hgb 12.5, Hct 37.1, MCV 92.8, MCH 31.3, MCHC 33.7, RDW Std Deviation 50.8 H, RDW Coeff of Vinicio 14.8 H, Plt Count 114 L, MPV 10.5, Immature Gran % (Auto) 0.200, Neut % (Auto) 63.0, Lymph % (Auto) 25.5,Wolfe % (Auto) 8.9, Eos % (Auto) 1.7, Baso % (Auto) 0.7, Absolute Neuts (auto) 2.6, Absolute Lymphs (auto) 1.06, Nucleated RBC % 0, Sodium 140, Potassium 3.9, Chloride 109 H, Carbon Dioxide 20.0 L, Anion Gap 11, BUN 6, Creatinine 0.56 L, Estim Creat Clear Calc 133.17, Est GFR (MDRD) Non-Af 104, BUN/Creatinine Ratio 11.3, Glucose 166 H, Calcium 7.9, Phosphorus 1.8 L, Magnesium 2.1 03/04/25 10:40: S.aureus Protein A PCR NEGATIVE, MRSA (PCR) Negative 03/04/25 22:27: Vancomycin Trough 13.4 03/05/25 04:29: WBC 5.9, RBC 3.74 L, Hgb 11.7 L, Hct 35.2 L, MCV 94.1, MCH 31.3,MCHC 33.2, RDW Std Deviation 52.0 H, RDW Coeff of Vinicio 14.9 H, Plt Count 119 L, MPV 12.0, Immature Gran % (Auto) 0.500, Neut % (Auto) 61.1, Lymph % (Auto) 26.9,Wolfe % (Auto) 7.6, Eos % (Auto) 3.2, Baso % (Auto) 0.7, Absolute Neuts (auto) 3.6, Absolute Lymphs (auto) 1.59, Nucleated RBC % 0, Dohle Bodies 1+, Platelet Estimate SLT DEC, Polychromasia 1+, Anisocytosis 1+, Ovalocytes 1+, Sodium 139, Potassium 3.7, [id number], Carbon Dioxide 22.4, Anion Gap 9, BUN 6, Creatinine0.51 L, Estim Creat Clear Calc 146.22, Est GFR (MDRD) Non-Af 106, BUN/CreatinineRatio 10.9, Glucose 123 H, Calcium 8.2, TSH 10.400 H, Free T4 1.10 Physical Exam Const oriented x3 and no apparent distress Skin Skin Narrative: Persistent erythematous change with slight superficial sloughing and induration of left upper back.No fluctuance appreciated. Packing is removed from wound and there is no purulent drainage. Assessment & Plan Assessment/Plan (1) Abscess: PLAN: Patient is 59-year-old female admitted for inpatient management of left upper back soft tissue infection. She reportedly failed outpatient management due to progressive fevers and concern for insufficient drainage. She underwent CT imaging of this area on her intake at her repeat ER visit which showed some skin thickening but no loculated fluid collections. Yesterday I completed bedside repeat incision and drainage procedure by unroofing the small cavity.Patient tolerated the procedure well and this morning there is no purulence when the packing is removed. Given that the area is unroofed I do not find need to recommend continued packing. At this point patient would be okay to shower and allow water to enter the area but should be diligent about expressing it back out. I tried to establish expectations that it would likely be a week or so before her inflammatory change is nearing resolution with proper antibiotic therapy. Given that patient hasbeen afebrileand wound is stable and now well draining she could be considered for discharge home from a surgical standpoint. Would asked that she is directed to follow-up with me in outpatient surgery clinic 2 weeks following discharge. Surendra De Luna MD General Surgery Endocrine Surgery Pager: [facility] [address] [place] [address], [facility], [address] [place] [address] Office: [phone] Charges/Coding Visit Charges Inpatient E&M: 32390 Subs Hosp L2 03/05/25 1022 Cosigner Signature (if applicable): CC: ~ Signed [facility]07-07-2025 Consult note Author Esa Beasley [facility] Note Date/Time March 04, 2025 11:33 pm [facility] Medical Records Department [address] [place] [address] Pharmacokinetic/Renal -Consult 03/04/25 2330 MR#: [id number] Acct: [id number] Name: BOAZ GOLDSTEIN Rep #:[id number] : 1965 59 From: Esa Beasley PCP: Dr. Hu Hairston MD Status:ADM I N Y Location: [place] [address] Consult Antibiotic Management Pharmacy has been consulted to manage selected antibiotic: Vancomycin Type of Intervention Type of Consult: Follow-up Suspected Infection Suspected Infection: Skin/Soft tissue Labs Labs: Sodium 140 mmol/L (133-145) 03/04/25 09:44 Potassium 3.9 mmol/L (3.3-5.1) 03/04/25 09:44 Chloride 109 mmol/L (98-108) H 03/04/25 09:44 Carbon Dioxide 20.0 mmol/L (21.0-32.0) L 03/04/25 09:44 Anion Gap 11 (5-15) 03/04/25 09:44 BUN 6 mg/dL (4-19) 03/04/25 09:44 Creatinine 0.56 mg/dL (0.70-1.20) L 03/04/25 09:44 Est GFR (MDRD) Non-Af 104 (>60) 03/04/25 09:44 BUN/Creatinine Ratio 11.3 RATIO (10-20) 03/04/25 09:44 Glucose 166 mg/dL (70-99) H 03/04/25 09:44 Vancomycin Trough 13.4 ug/mL (5.0-15.0) 03/04/25 22:27 Dosing Weight Weight used for dosin kg Estimated Creatinine Clearance Estimated Creatinine Clearance: 133 Goal Trough Goal Trough: 15-20 mcg/mL Pharmacy Plan for Drug Dosing Pharmacy Plan for Drug Dosing: Vancomycin trough level of 13.4, drawn 7.5hrs post-dose, was below the target range of 15-20. This accompanies increase in renal function (SCr from 0.74 to 0.56). Will increase vanco dose to 1500mg q8h and will draw another trough priorto fourth dose of the new regimen. Pharmacy Service will continue to monitor and adjust dosing as required. Follow-Up Labs Follow-Up Labs: Trough: Vancomycin Date/Time Labs Ordered Labs to be done on [date and time ordered]: 03/05/25 @2300 03/04/253 <Electronically signed by Esa mcdonnell> Date _ Esa Beasley Cosigner Signature (if applicable): Date CC: ~ Signed [facility] Work Phone: 1(793) 738-740807-06-2025 Consult note [facility] Medical Records Department [address] [place] [address] Pharmacokinetic/Renal -Consult 03/04/252329 MR#: [id number] Acct: [id number] Name: BOAZ GOLDSTEIN Rep #:[id number] : 1965 59 From: Esa Beasley PCP: Dr. Hu Hairston MD Status:ADM I N Y Location: [place] [address] Consult Antibiotic Management Pharmacy has been consulted to manage selected antibiotic: Vancomycin Type of Intervention Type of Consult: Follow-up Suspected Infection Suspected Infection: Skin/Soft tissue Labs Labs: Sodium 140 mmol/L (133-145) 03/04/25 09:44 Potassium 3.9 mmol/L (3.3-5.1) 03/04/25 09:44 Chloride 109 mmol/L (98-108) H 03/04/25 09:44 Carbon Dioxide 20.0 mmol/L (21.0-32.0) L 03/04/25 09:44 Anion Gap 11 (5-15) 03/04/25 09:44 BUN 6 mg/dL (4-19) 03/04/25 09:44 Creatinine 0.56 mg/dL (0.70-1.20) L 03/04/25 09:44 Est GFR (MDRD) Non-Af 104 (>60) 03/04/25 09:44 BUN/Creatinine Ratio 11.3 RATIO (10-20) 03/04/25 09:44 Glucose 166 mg/dL (70-99) H 03/04/25 09:44 Vancomycin Trough 13.4 ug/mL (5.0-15.0) 03/04/25 22:27 Dosing Weight Weight used for dosin kg Estimated Creatinine Clearance Estimated Creatinine Clearance: 133 Goal Trough Goal Trough: 15-20 mcg/mL Pharmacy Plan for Drug Dosing Pharmacy Plan for Drug Dosing: Vancomycin trough level of 13.4, drawn 7.5hrs post-dose, was below the target range of 15-20. This accompanies increase in renal function (SCr from 0.74 to 0.56). Will increase vanco dose to 1500mg q8h and will draw another trough priorto fourth dose of the new regimen. Pharmacy Service will continue to monitor and adjust dosing as required. Follow-Up Labs Follow-Up Labs: Trough: Vancomycin Date/Time Labs Ordered Labs to be done on [date and time ordered]: 03/05/25 @2300 03/04/25 2333 ds> Date _ Esa Mixon Signature (if applicable): Date CC: ~ Signed [facility]07-06-2025 Progress note Author Benny Mejia [facility] Note Date/Time March 04, 2025 2:53p [facility] Medical Records Department [address] [facility] [place] [address] Progress Note - Hospitalist 03/04/25 0759 MR#: [id number] Acct: [id number] Name: BOAZ GOLDSTEIN Rep #:[id number] : 1965 59 From: Benny Knapp PCP: Dr. Hu Hairston MD Status:ADM I N Location: [facility]3 [id number] Reason for Visit Reason for Visit: Diagnoses Thrombocytopenia, unspecified (03/04/25) Obesity, unspecified (03/04/25) Hypokalemia (03/04/25) Cellulitis of trunk, unspecified (03/04/25) Tobacco use (03/04/25) Objective Data Objective Data Vital Signs: Vital Signs Temp Pulse Resp BP Pulse Ox O2 Del Method 97.6 F L 89 18 134/86 H 94 Room Air 03/04/25 01:35 03/04/25 01:35 03/04/25 01:35 03/04/25 01:35 03/04/25 01:35 03/04/25 02:00 Oxygen Delivery Method Room Air Weight: 237 lb Body Mass Index (BMI) 37.0 Intake & Output: Intake and Output for Last 24 Hours 03/02/25 03/03/25 03/04/25 23:59 23:59 23:59 Intake Total 500 / 500 530 / 530 Balance 500 / 500 530 / 530 Lab / Micro Data 03/03/25 22:31 03/03/25 22:31 Labs: Laboratory Results - last 24 hr 03/03/25 22:31: WBC 7.0, RBC 4.17 L, Hgb 13.0, Hct 38.3, MCV 91.8, MCH 31.2, MCHC 33.9, RDW Std Deviation 49.5 H, RDW Coeff of Vinicio 14.6, Plt Count 126 L, MPV11.3, Immature Gran % (Auto) 0.600, Neut % (Auto) 72.7 H, Lymph % (Auto) 17.3 L,Wolfe % (Auto) 8.6, Eos % (Auto) 0.1, Baso % (Auto) 0.7, Absolute Neuts (auto) 5.1, Absolute Lymphs (auto) 1.21, Nucleated RBC % 0, PT 13.1, INR 1.0, APTT 26.5, Sodium 136, Potassium 3.1 L, Chloride 101, Carbon Dioxide 21.3, Anion Gap 13, BUN 8, Creatinine 0.74, Estim Creat Clear Calc 100.16, Est GFR (MDRD) Non-Af92, BUN/Creatinine Ratio 10.8, Glucose 106 H, Lactic Acid 1.0, Calcium 8.0, Total Bilirubin 0.44, AST 61 H, ALT 51 H, Alkaline Phosphatase 103, Total Protein 7.1, Albumin 4.1, Globulin 3.0, Albumin/Globulin Ratio 1.4 Radiography Diagnostic Testing: Radiology Impression Chest CT 03/03/25 22:16 IMPRESSION: Diffuse skin and subcutaneous soft tissue thickening with subcutaneous fat stranding of the left posterolateral chest wall, possibly cellulitis with no obvious underlying fluid density abscesses formation. Unremarkable left posterolateral chest wall muscles. Bilateral upper lobes reticulonodular and fibrotic scarring with calcified pulmonary nodules. No obvious pulmonary masses, consolidations or cavitary changes. Reading Location: [place] [address] Physical Exam Narrative Seen and examined Patient noticed itching, left posterior lateral chest wall swelling on Wednesday while taking shower and then came to ED. She also had fever at that time. She was drained and sent home on antibiotics, Bactrim DS for 7 days She came back and admitted when she had fever. She also noticed leg swelling bilaterally and left lower leg petechial rash Physical exam: General: Alert, Oriented x3, Cooperative. BMI 37.1 kg/m?, obesity grade 2 HEENT: Atraumatic, PERRLA, EOMI, Normocephalic. Oral: No Gingival or Mucosal Lesions/ Ulcerations Neck: Supple, No JVD, Negative Carotid Bruits Chest wall/Lungs: Air entry diminished in bilateral lungs. No crepitation/rhonchi/wheezing Cardiovascular: Regular rate and rhythm, Normal S1,S2, No M/G/R Abdomen: Bowel Sounds Present, Soft, Non Tender, Non-Distended : No dysuria. No renal angle tenderness. No suprapubic tenderness. Extremities: Mild 1-2+ pedal edema, Capillary Refill Less than 3 Seconds Skin: Petechial rash with dots" in coalescence left lower leg. Left posterior lateral swelling with redness, induration, tenderness about 5-6 cm x 2 to 3 cm. Suggestive of subcutaneous abscess Musculoskeletal: No Tenderness to Palpation of Joints or Extremities Neurological: Cranial nerves II-XII grossly intact, DTR 2+/4. No acute focal neurological deficit. Psych/Mental Status: Normal Affect, Appropriate. Assessment & Plan Assessment/Plan (1) Cellulitis: QUALIFIERS: Site of cellulitis: trunk Site of cellulitis of trunk: unspecified site Qualified Code(s): L03.319 - Cellulitis of trunk, unspecified (2) Hypokalemia: (3) Thrombocytopenia: (4) Obesity (BMI 30-39.9): (5) Tobacco abuse: PLAN: Plan Patient was seen yesterday in ED for I&D after bug bite on the back found to have subcutaneous abscess on the left posterolateral chest wall which was drained. She had 3 to 4 cc of mostly bloody purulent fluid drained out sent forculture he complained of fever therefore admitted. 1. Left posterolateral chest wall abscess with contiguous surrounding cellulitis, exact precipitating factor unclear: CT chest initially reviewed and did not show underlying fluid density or abscess formation but on exam looks subcutaneous abscess/phlegmon. Patient started on IV vancomycin in ED. It shows diffuse skin and subcu soft tissue thickening with subcutaneous fat stranding of left posterior lateral wall chest wall suggestive of cellulitis. Culture growing coagulase- negative staph Started on IV vancomycin. General surgery Dr. De Luna consulted. Tylenol and pain control and supportive treatment. Repeat wound culture including MRSA ordered 2. Hypokalemia 3.1 mmol/L present on admission: Potassium replacement given. Repeat BMP and magnesium 3. Thrombocytopenia of 126K complicated with petechial rash on the left lower leg-platelet count reviewed. It was 144K in November 2013 and then normal to zenith of 2 50K in September 2021 then 151K in January 2025, and then 126K on 03/03. She denies any personal or family history of leukemia or lymphoma. It might be related to antibiotic, Bactrim known to cause thrombocytopenia, immune mediated thrombocytopenia. But the patient stated that she noticed petechial rash on Wednesday and she started taking Bactrim DS on Wednesday morning. The rash has not gotten worse after taking Bactrim DS. Lovenox discontinued. Continue baby aspirin with holding parameters. 4. Obesity (class II); with BMI of 36.7 KG per square meter. Nutrition 6. COPD with prolonged history of smoking: She has history of smoking a pack per day started at the age of 14 and quit June [address]24. CT chest showed Bilateral upper lobe reticulonodular fibrotic scarring with calcified pulmonary nodules with no obvious masses, consolidations or cavitary changes -no acute exam continue as needed nebulizers as previous. 7. Essential hypertension; on amlodipine - Resume amlodipine as previous plus give as needed IV hydralazine for systolic blood pressure greater than 160 mmHg. 8. Hyperlipidemia; on atorvastatin - Maintain statin. 9. Hypothyroidism; on levothyroxine - Continue present therapy and check TSH. 10. Other comorbidities include GERD, osteoarthritis with scoliosis. DVT prophylaxis bilateral SCD Total time of the visit including total time spent in counseling or coordinationof care, (more than 50% of the total time, spent in obtaining medical information from nurses and other ancillary care providers ,explaining to the patient about labs, imaging, diagnosis and management of active complex medical conditions), discussion of presented previous history, thrombocytopenia, discussion with consultants surgeon, review of labs and imaging is 35 minutes. Charges/Coding Visit Charges Inpatient E&M: 38874 Subs Hosp L3 03/04/25 0946 <Electronically signed by Benny Mejia MD> Cosigner Signature (if applicable): CC: ~ Signed ADDENDUM by Dr. Benny Mejia MD on 03/04/25 at 1453 Addendum Surgical consult are reviewed and appreciated. Patient at bedside small incision by Dr. De Luna and packing was done. Culture sent. ID consulted as patient allergic to penicillin and cephalexin and also had low platelet count. 03/04/25 1453<Electronically signed by Benny Mejia MD> Cosigner Signature (if applicable): cc: ~* Signed [facility] Work Phone: 1(788) 500-147007-06-2025 Consult note Author Surendra De Luna [facility] Note Date/Time March 04, 2025 2:47p m [facility] Medical Records Department [address] [place] [id number] Consultation - Surgical 03/04/25 1440 MR#: [id number] Acct: [id number] Name: BOAZ GOLDSTEIN Rep #:[id number] : 1965 59 From: Surendra Knapp PCP: Dr. Hu Hairston MD Status:ADM I N [facility] Assessment & Plan Assessment/Plan (1) Abscess: PLAN: Patient is 59-year-old female admitted for inpatient management of left upper back soft tissue infection. She reportedly failed outpatient management due to progressive fevers and concern for insufficient drainage. She underwent CT imaging of this area on her intake at her repeat ER visit which showed some skin thickening but no loculated fluid collections. Indeed, on exam there is not much fluctuance and is primarily consistent with cellulitic change/induration. Still, given presence of some purulent drainage on outer bandage I decided to proceed with bedside incision and drainage procedure. Thiswas undertaken in uncomplicated fashion and yielded minimal additional purulence. I did try to improve the drainage situation by removing a small ellipse of tissue. Patient tolerated procedure well. Wound cultures were obtained. Will plan to remove packing and reassess wound in 24 hours. Agree with antibiotic therapy as previously instituted by hospitalist service. Surendra De Luna MD General Surgery Endocrine Surgery Pager: [facility] [address] [place] [address], [facility], [address] [place] [id number] Office: [phone] HPI Consult Data Date of Consult: 03/04/25 HPI Narrative Reason for Consultation: Left upper back abscess HPI Narrative: BOAZ GOLDSTEIN, is a 59 F who is admitted to [facility] Medr floor after failing outpatient management of a left upper back soft tissue infection. She shares that she awoke with pain and itching 2 days ago. As she has not able to visualize it directly herself, she asked those around her who advised she may be suffering from a spider bite and decided to present for emergency department evaluation the same day. During that evaluation she underwent a bedside incision and drainage procedure and was discharged home withreturn precautions. She states that she waited 24 hours to remove her packing but had minimal drainage and was experiencing fevers of Tmax 102 and 103 Fahrenheit. She also notes some associated lightheadedness and dizziness as well as poor appetite. She has no history of prior abscesses. There is no history of diabetes. Patient has a history of tobacco use but states she underwent sensation fall 2023. [facility] Medical History Alcohol use Abscessed tooth Post-menopausal [...] pulmonary disease) 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 Home Medications ?Medication ?Instructions ?Recorded ?Last Taken ?Type amlodipine 5 mg tablet 5 mg PO DAILY #90 tabs 05/0701/26/25 Rx atorvastatin 10 mg tablet 10 mg PO QHS #90 tabs 01/25/25 Rx albuterol sulfate 90 mcg/actuation 2 puff inhalation Q 4H PRN 02/17/24 02/22/24 History aerosol inhaler shortness of breath or wheez ing aspirin 81 mg chewable tablet 1 tab PO DAILY 03/03/25 Unknown History levothyroxine 137 mcg tablet 137 mcg PO DAILY 03/04/25 Unknown History Allergy/AdvReac Type Severity Reaction Status Date / Time cephalexin monohydrate (From Allergy Hives Verified 03/03/25 21:44 Keflex) latex Allergy Rash Verified 03/03/25 21:44 Penicillins (PCN) Allergy Hives Verified 03/03/25 21:44 Family History Grandfather Kidney disease Heart disease Colon cancer Sister Lung cancer Seizures Mother Cancer Diabetes Daughter Hypertension Thyroid disorder Surgical History Hx of colonoscopy History of cholecystectomy History of delivery Social History Smoking Status: Former smoker second hand exposure: Yes quit status: not considering quitting alcohol intake: never substance use type: does not use caffeine: Yes what type of physical activity do you participate in: none seatbelt use: always do you feel safe at home: Yes additional social history: Employed Self reliance single Physical Exam Const alert, oriented x3 and no apparent distress Skin Wound Narrative: Significantly erythematous and blanchable area approximately 6 cm x 3 cm of the left upper back overlying the latissimus. There is minimal fluctuance and no expressible drainage on initial evaluation. Instead the area appears primarily indurated. There is a scant amount of drainage on patient's overlying bandage. Lab / Micro Data 03/04/25 09:44 03/04/25 09:44 Labs: Laboratory Results - last 24 hr 03/03/25 22:31: WBC 7.0, RBC 4.17 L, Hgb 13.0, Hct 38.3, MCV 91.8, MCH 31.2, MCHC 33.9, RDW Std Deviation 49.5 H, RDW Coeff of Vinicio 14.6, Plt Count 126 L, MPV11.3, Immature Gran % (Auto) 0.600, Neut % (Auto) 72.7 H, Lymph % (Auto) 17.3 L,Wolfe % (Auto) 8.6, Eos % (Auto) 0.1, Baso % (Auto) 0.7, Absolute Neuts (auto) 5.1, Absolute Lymphs (auto) 1.21, Nucleated RBC % 0, PT 13.1, INR 1.0, APTT 26.5, Sodium 136, Potassium 3.1 L, Chloride 101, Carbon Dioxide 21.3, Anion Gap 13, BUN 8, Creatinine 0.74, Estim Creat Clear Calc 100.16, Est GFR (MDRD) Non-Af92, BUN/Creatinine Ratio 10.8, Glucose 106 H, Lactic Acid 1.0, Calcium 8.0, Total Bilirubin 0.44, AST 61 H, ALT 51 H, Alkaline Phosphatase 103, Total Protein 7.1, Albumin 4.1, Globulin 3.0, Albumin/Globulin Ratio 1.4 03/04/25 09:44: WBC 4.2 L, RBC 4.00 L, Hgb 12.5, Hct 37.1, MCV 92.8, MCH 31.3, MCHC 33.7, RDW Std Deviation 50.8 H, RDW Coeff of Vinicio 14.8 H, Plt Count 114 L, MPV 10.5, Immature Gran % (Auto) 0.200, Neut % (Auto) 63.0, Lymph % (Auto) 25.5,Wolfe % (Auto) 8.9, Eos % (Auto) 1.7, Baso % (Auto) 0.7, Absolute Neuts (auto) 2.6, Absolute Lymphs (auto) 1.06, Nucleated RBC % 0, Sodium 140, Potassium 3.9, Chloride 109 H, Carbon Dioxide 20.0 L, Anion Gap 11, BUN 6, Creatinine 0.56 L, Estim Creat Clear Calc 133.17, Est GFR (MDRD) Non-Af 104, BUN/Creatinine Ratio 11.3, Glucose 166 H, Calcium 7.9, Phosphorus 1.8 L, Magnesium 2.1 03/04/25 10:40: S.aureus Protein A PCR NEGATIVE, MRSA (PCR) Negative Imaging Radiology Impression Chest CT 03/03/25 22:16 IMPRESSION: Diffuse skin and subcutaneous soft tissue thickening with subcutaneous fat stranding of the left posterolateral chest wall, possibly cellulitis with no obvious underlying fluid density abscesses formation. Unremarkable left posterolateral chest wall muscles. Bilateral upper lobes reticulonodular and fibrotic scarring with calcified pulmonary nodules. No obvious pulmonary masses, consolidations or cavitary changes. Reading Location: [place] [address] Charges/Coding Visit Charges Inpatient E&M: 63951 Init Hosp L2 03/04/25 1447 <Electronically signed by Surendra De Luna MD> Cosigner Signature (if applicable): CC: Dr. Hu Hairston MD~ Signed [facility] Work Phone: 1(296) 151-244407-06-2025 Progress note [facility] Medical Records Department [address] [place] [address] Progress Note - Hospitalist 03/04/25 0759 MR#: [id number] Acct: [id number] Name: BOAZ GOLDSTEIN Rep #:[id number] : 1965 59 From: Benny Knapp PCP: Dr. Hu Hairston MD Status:ADM I N Location: [place] [address] Reason for Visit Reason for Visit: Diagnoses Thrombocytopenia, unspecified (03/04/25) Obesity, unspecified (03/04/25) Hypokalemia (03/04/25) Cellulitis of trunk, unspecified (03/04/25) Tobacco use (03/04/25) Objective Data Objective Data Vital Signs: Vital Signs Temp Pulse Resp BP Pulse Ox O2 Del Method 97.6 F L 89 18 134/86 H 94 Room Air 03/04/25 01:35 03/04/25 01:35 03/04/25 01:35 03/04/25 01:35 03/04/25 01:35 03/04/25 02:00 Oxygen Delivery Method Room Air Weight: 237 lb Body Mass Index (BMI) 37.0 Intake & Output: Intake and Output for Last 24 Hours 03/02/25 03/03/25 03/04/25 23:59 23:59 23:59 Intake Total 500 / 500 530 / 530 Balance 500 / 500 530 / 530 Lab / Micro Data 03/03/25 22:31 03/03/25 22:31 Labs: Laboratory Results - last 24 hr 03/03/25 22:31: WBC 7.0, RBC 4.17 L, Hgb 13.0, Hct 38.3, MCV 91.8, MCH 31.2, MCHC 33.9, RDW Std Deviation 49.5 H, RDW Coeff of Vinicio 14.6, Plt Count 126 L, MPV11.3, Immature Gran % (Auto) 0.600, Neut %(Auto) 72.7 H, Lymph % (Auto) 17.3 L,Wolfe % (Auto) 8.6, Eos % (Auto) 0.1, Baso % (Auto) 0.7, Absolute Neuts (auto) 5.1, Absolute Lymphs (auto) 1.21, Nucleated RBC % 0, PT 13.1, INR 1.0, APTT 26.5, Sodium 136, Potassium 3.1 L, Chloride 101, Carbon Dioxide 21.3, Anion Gap 13, BUN 8, Creatinine 0.74, Estim Creat Clear Calc 100.16, Est GFR (MDRD) Non- Af92, BUN/Creatinine Ratio 10.8, Glucose 106 H, Lactic Acid 1.0, Calcium 8.0, Total Bilirubin 0.44, AST 61 H, ALT 51 H, Alkaline Phosphatase 103, Total Protein 7.1, Albumin 4.1, Globulin 3.0, Albumin/Globulin Ratio 1.4 Radiography Diagnostic Testing: Radiology Impression Chest CT 03/03/25 22:16 IMPRESSION: Diffuse skin and subcutaneous soft tissue thickening with subcutaneous fat stranding of the left posterolateral chest wall, possibly cellulitis with no obvious underlying fluid density abscesses formation. Unremarkable leftposterolateral chest wall muscles. Bilateral upper lobes reticulonodular and fibrotic scarring with calcified pulmonary nodules. No obvious pulmonary masses, consolidations or cavitary changes. Reading Location: [place] [address] Physical Exam Narrative Seen and examined Patient noticed itching, left posterior lateral chest wall swelling on Wednesday while taking shower and then came to ED. She also had fever at that time. She was drained and sent home on antibiotics, Bactrim DS for 7 days She came back and admitted when she had fever. She also noticed leg swelling bilaterally and left lower leg petechial rash Physical exam: General: Alert, Oriented x3, Cooperative. BMI 37.1 kg/m?, obesity grade 2 HEENT: Atraumatic, PERRLA, EOMI, Normocephalic. Oral: No Gingival or Mucosal Lesions/ Ulcerations Neck: Supple, No JVD, Negative Carotid Bruits Chest wall/Lungs: Air entry diminished in bilateral lungs. No crepitation/rhonchi/wheezing Cardiovascular: Regular rate and rhythm, Normal S1,S2, No M/G/R Abdomen: Bowel Sounds Present, Soft, Non Tender, Non-Distended : No dysuria. No renal angle tenderness. No suprapubic tenderness. Extremities: Mild 1-2+ pedal edema, Capillary Refill Less than 3 Seconds Skin: Petechial rash with dots" in coalescence left lower leg. Left posterior lateral swelling withredness, induration, tenderness about 5-6 cm x 2 to 3 cm. Suggestive of subcutaneous abscess Musculoskeletal: No Tenderness to Palpation of Joints or Extremities Neurological: Cranial nerves II-XII grossly intact, DTR 2+/4. No acute focal neurological deficit. Psych/Mental Status: Normal Affect, Appropriate. Assessment & Plan Assessment/Plan (1) Cellulitis: QUALIFIERS: Site of cellulitis: trunk Site of cellulitis of trunk: unspecified site Qualified Code(s): L03.319 - Cellulitis of trunk, unspecified (2) Hypokalemia: (3) Thrombocytopenia: (4) Obesity (BMI 30-39.9): (5) Tobacco abuse: PLAN: Plan Patient was seen yesterday in ED for I&D after bug bite on the back found to have subcutaneous abscess on the left posterolateral chest wall which was drained. She had 3 to 4 cc of mostly bloody purulent fluid drained out sent forculture he complained of fever therefore admitted. 1. Left posterolateral chest wall abscess with contiguous surrounding cellulitis, exact precipitating factor unclear: CT chest initially reviewed and did not show underlying fluid density or abscess formation but on exam looks subcutaneous abscess/phlegmon. Patient started on IV vancomycin in ED. It shows diffuse skin and subcu soft tissue thickening with subcutaneous fat stranding of left posterior lateral wall chest wall suggestive of cellulitis. Culture growing coagulase-negative staph Started on IV vancomycin. General surgery Dr. De Luna consulted. Tylenol and pain control and supportive treatment. Repeat wound culture including MRSA ordered 2. Hypokalemia 3.1 mmol/L present on admission: Potassium replacement given. Repeat BMP and magnesium 3. Thrombocytopenia of 126K complicated with petechial rash on the left lower leg-platelet count reviewed. It was 144K in November 2013 and then normal to zenith of 2 50K in September 2021 then 151K in January 2025, and then 126K on 03/03. She denies any personal or family history of leukemia or lymphoma. It might be related to antibiotic, Bactrim known to cause thrombocytopenia, immune mediated thrombocytopenia. But the patient stated that she noticed petechial rash on Wednesday and she started taking Bactrim DS on Wednesday morning. The rash has not gotten worse after taking Bactrim DS. Lovenox discontinued. Continue baby aspirin with holding parameters. 4. Obesity (class II); with BMI of 36.7 KG per square meter. Nutrition 6. COPD with prolonged history of smoking: She has history of smoking a pack per day started at theage of 14 and quit June [address]. CT chest showed Bilateral upper lobe reticulonodular fibrotic scarring with calcified pulmonary nodules with no obvious masses, consolidations or cavitary changes -no acute exam continue as needed nebulizers as previous. 7. Essential hypertension; on amlodipine - Resume amlodipine as previous plus give as needed IV hydralazine for systolic blood pressure greater than 160 mmHg. 8. Hyperlipidemia; on atorvastatin - Maintain statin. 9. Hypothyroidism; on levothyroxine - Continue present therapy and check TSH. 10. Other comorbidities include GERD, osteoarthritis with scoliosis. DVT prophylaxis bilateral SCD Total time of the visit including total time spent in counseling or coordinationof care, (more than50% of the total time, spent in obtaining medical information from nurses and other ancillary care providers ,explaining to the patient about labs, imaging, diagnosis and management of active complexmedical conditions), discussion of presented previous history, thrombocytopenia, discussion with consultants surgeon, review of labs and imaging is 35 minutes. Charges/Coding Visit Charges Inpatient E&M: 36243 Subs Hosp L3 03/04/25 0946 Cosigner Signature (if applicable): CC: ~ Signed ADDENDUM by Dr. Benny Mejia MD on 03/04/25 at 1453 Addendum Surgical consult are reviewed and appreciated. Patient at bedside small incision by Dr. De Luna and packing was done. Culture sent. ID consulted as patient allergic to penicillin and cephalexin and also had low platelet count. 03/04/25 1453 Cosigner Signature (if applicable): cc: ~* Signed [facility]07-06-2025 Procedure note [facility] Medical Records Department [address] [place] [address] Operative Report 03/04/25 1447 MR#: [id number] Acct: [id number] Name: BOAZ GOLDSTEIN Rep #:[id number] : 1965 59 From: Surendra Knapp PCP: Dr. Hu Hairston MD Status:ADM I N Location: [facility] [place] [id number] Procedures Integumentary 10xxx: [id number] Drainage of skin abscess Operative Report (Standard) Operative Information Date of Procedure: 03/04/25 Pre-Operative Diagnosis: Left upper back abscess Post-Operative Diagnosis: Same Surgery/Procedure Performed: Incision and drainage of left upper back abscess with local anesthetic digital marketing strategist: No Type of Anesthesia: Local (1% plain lidocaine) Procedure Start Time: 02:25 Procedure Stop Time: 02:40 Select all DRAINS/GRAFTS/IMPLANTS that apply: Drains Drain details: Quarter inchiodoform packing strip Estimated Blood Loss: 3 Specimen collected: Yes Description of specimen(s) removed: Wound culture Description of surgery: After obtaining written consent, patient was positioned right lateral decubitus in her hospital bed. A verbal timeout was conducted to confirm the patient and procedure. Then the area was anesthetized with a local block using 5 mL of 1% lidocaine. Then, an 11 blade scalpel was used to make an elliptical incision inthis area. This resulted in some bloody drainage but no significant purulence. The cavity was probed with a hemostat to disrupt loculations and manual pressurewas applied to further express this discharge. A wound culture was obtained. The cavity was then irrigated with sterile saline. The cavity was packed tightly with quarter inch iodoform gauze. A 4 x 4 gauze was then folded inin half and taped over site. Patient tolerated the procedure without any apparent complication. EBL: 3 mL Surgical Findings: Minimal purulence, indurated tissue that limited spread of local anesthetic and dissection?no one drained loculations Complications Complications: No 03/04/25 1451 Cosigner Signature (if applicable): CC: Dr. Dick Perez DO; Dr. Surendra De Luna MD; Dr. Hu Hairston MD~ Signed [facility]07-06-2025 Consult note [facility] Medical Records Department [address] [place] [address] Consultation - Surgical 03/04/25 1440 MR#: [id number] Acct: [id number] Name: BOAZ GOLDSTEIN Rep #:[id number] : 1965 59 From: Surendra Knapp PCP: Dr. Hu Hairston MD Status:ADM I N Location: [facility] QB764-2 Assessment & Plan Assessment/Plan (1) Abscess: PLAN: Patient is 59-year-old female admitted for inpatient management of left upper back soft tissue infection. She reportedly failed outpatient management due to progressive fevers and concern for insufficient drainage. She underwent CT imaging of this area on her intake at her repeat ER visit which showed some skin thickening but no loculated fluid collections. Indeed, on exam there is not muchfluctuance and is primarily consistent with cellulitic change/induration. Still, given presence of some purulent drainage on outer bandage I decided to proceed with bedside incision and drainage procedure. Thiswas undertaken in uncomplicated fashion and yielded minimal additional purulence. I did try to improve the drainage situation by removing a small ellipse of tissue. Patient tolerated procedure well. Wound cultures were obtained. Will plan to remove packing and reassess wound in 24 hours. Agree with antibiotic therapy as previously instituted by hospitalist service. Surendra De Luna MD General Surgery Endocrine Surgery Pager: [facility] [address] [place] [address], [address] [place] [address] Office: [phone] HPI Consult Data Date of Consult: 03/04/25 HPI Narrative Reason for Consultation: Left upper back abscess HPI Narrative: BOAZ GOLDSTEIN, is a 59 F who is admitted to [facility] floor after failing outpatient management of a left upper back soft tissue infection. She shares that she awoke with painand itching 2 days ago. As she has not able to visualize it directly herself, she asked those around her who advised she may be suffering from a spider bite and decided to present for emergency department evaluation the same day. During that evaluation she underwent a bedside incision and drainage procedure and was discharged home withreturn precautions. She states that she waited 24 hours to remove her packing but had minimal drainage and was experiencing fevers of Tmax 102 and 103 Fahrenheit.She also notes some associated lightheadedness and dizziness as well as poor appetite. She has no history of prior abscesses. There is no history of diabetes. Patient has a history of tobacco use butstates she underwent sensation fall 2023. [facility] Medical History Alcohol use Abscessed tooth Post-menopausal [...] pulmonary disease) 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 Home Medications ?Medication ?Instructions ?Recorded ?Last Taken ?Type amlodipine 5 mg tablet 5 mg PO DAILY #90 tabs 05/0701/26/25 Rx atorvastatin 10 mg tablet 10 mg PO QHS #90 tabs 01/25/25 Rx albuterol sulfate 90 mcg/actuation 2 puff inhalation Q 4H PRN 02/17/24 02/22/24 History aerosol inhaler shortness of breath or wheez ing aspirin 81 mg chewable tablet 1 tab PO DAILY 03/03/25 Unknown History levothyroxine 137 mcg tablet 137 mcg PO DAILY 03/04/25 Unknown History Allergy/AdvReac Type Severity Reaction Status Date / Time cephalexin monohydrate (From Allergy Hives Verified 03/03/25 21:44 Keflex) latex Allergy Rash Verified 03/03/25 21:44 Penicillins (PCN) Allergy Hives Verified 03/03/25 21:44 Family History Grandfather Kidney disease Heart disease Colon cancer Sister Lung cancer Seizures Mother Cancer Diabetes Daughter Hypertension Thyroid disorder Surgical History Hx of colonoscopy History of cholecystectomy History of delivery Social History Smoking Status: Former smoker second hand exposure: Yes quit status: not considering quitting alcohol intake: never substance use type: does not use caffeine: Yes what type of physical activity do you participate in: none seatbelt use: always do you feel safe at home: Yes additional social history: Employed Self reliance single Physical Exam Const alert, oriented x3 and no apparent distress Skin Wound Narrative: Significantly erythematous and blanchable area approximately 6 cm x 3 cm of the left upper back overlying the latissimus. There is minimal fluctuance and no expressible drainage on initial evaluation. Instead the area appears primarily indurated. There is a scant amount of drainage on patient's overlying bandage. Lab / Micro Data 03/04/25 09:44 03/04/25 09:44 Labs: Laboratory Results - last 24 hr 03/03/25 22:31: WBC 7.0, RBC 4.17 L, Hgb 13.0, Hct 38.3, MCV 91.8, MCH 31.2, MCHC 33.9, RDW Std Deviation 49.5 H, RDW Coeff of Vinicio 14.6, Plt Count 126 L, MPV11.3, Immature Gran % (Auto) 0.600, Neut %(Auto) 72.7 H, Lymph % (Auto) 17.3 L,Wolfe % (Auto) 8.6, Eos % (Auto) 0.1, Baso % (Auto) 0.7, Absolute Neuts (auto) 5.1, Absolute Lymphs (auto) 1.21, Nucleated RBC % 0, PT 13.1, INR 1.0, APTT 26.5, Sodium 136, Potassium 3.1 L, Chloride 101, Carbon Dioxide 21.3, Anion Gap 13, BUN 8, Creatinine 0.74, Estim Creat Clear Calc 100.16, Est GFR (MDRD) Non- Af92, BUN/Creatinine Ratio 10.8, Glucose 106 H, Lactic Acid 1.0, Calcium 8.0, Total Bilirubin 0.44, AST 61 H, ALT 51 H, Alkaline Phosphatase 103, Total Protein 7.1, Albumin 4.1, Globulin 3.0, Albumin/Globulin Ratio 1.4 03/04/25 09:44: WBC 4.2 L, RBC 4.00 L, Hgb 12.5, Hct 37.1, MCV 92.8, MCH 31.3, MCHC 33.7, RDW Std Deviation 50.8 H, RDW Coeff of Vinicio 14.8 H, Plt Count 114 L, MPV 10.5, Immature Gran % (Auto) 0.200, Neut % (Auto) 63.0, Lymph % (Auto) 25.5,Wolfe % (Auto) 8.9, Eos % (Auto) 1.7, Baso % (Auto) 0.7, Absolute Neuts (auto) 2.6, Absolute Lymphs (auto) 1.06, Nucleated RBC % 0, Sodium 140, Potassium 3.9, Chloride 109 H, Carbon Dioxide 20.0 L, Anion Gap 11, BUN 6, Creatinine 0.56 L, Estim Creat Clear Calc 133.17, Est GFR (MDRD) Non-Af 104, BUN/Creatinine Ratio 11.3, Glucose 166 H, Calcium 7.9, Phosphorus 1.8 L, Magnesium 2.1 03/04/25 10:40: S.aureus Protein A PCR NEGATIVE, MRSA (PCR) Negative Imaging Radiology Impression Chest CT 03/03/25 22:16 IMPRESSION: Diffuse skin and subcutaneous soft tissue thickening with subcutaneous fat stranding of the left posterolateral chest wall, possibly cellulitis with no obvious underlying fluid density abscesses formation. Unremarkable leftposterolateral chest wall muscles. Bilateral upper lobes reticulonodular and fibrotic scarring with calcified pulmonary nodules. No obvious pulmonary masses, consolidations or cavitary changes. [facility] Charges/Coding Visit Charges Inpatient E&M: 51302 Init Hosp L2 03/04/25 1447 Cosigner Signature (if applicable): CC: Dr. Hu Hairston MD~ Signed [facility]07-06-2025 Hospital Discharge instructionsAdditional Instructions ADDITIONAL INSTRUCTIONS: #1. Left posterior lateral chest wall abscess with surrounding cellulitis, uncertain organism: --Initial CT chest with initially no underlying fluid density or abscess formation however examination concerning for subcutaneous abscess/phlegmon, general surgery consulted, status post 03/04/25 I&D of the left upper back abscess under local anesthetic. --Treated w/ IV vancomycin pending wound culture; however 03/05/25 ID evaluation and given improvement recommended transition to cefdinir 300 mg twice daily for an additional 7 day course. --General L lateral chest care per Surgery: Defer packing, allowance of showering but no submersion in water, plan follow-up outpatient with general surgery in [address] May place dry dressing daily and as needed. --Short course of oral pain regimen rx at discharge but recommend transition to tylenol and ibuprofen once able and avoidance for further narcotics once pain improving. #2. Thrombocytopenia complicated by petechial rash in left lower extremity: --Initially had been on lovenox but discontinued, please have repeat complete blood count (CBC) with primary care at follow-up. #3. Hypokalemia: --Admission Potassium 3.1, supplementation administered and corrected, pelase have repeat basic metabolic panel at follow-up with primary care physician. #4. Normocytic anemia, new in chronicity, likely related with #1 intervention: --Admission hemoglobin 12.5, MCV 92.8, status post interventions above as noted, repeat 03/05/25 hemoglobin 11.7, MCV 94.1, encourage continued evaluation and repeat CBC evaluation outpatient. #5. Hypothyroidism with abnormal TSH: --Presentation TSH 10.4 however free T4 normal range with 1.10, given the acute setting recommend repeat thyroid function studies outpatient and alteration in medication at that time if appropriate. Date of Discharge: 03/05/25[facility] Work Phone: 1(773) 695-108807-06-2025 History and physical note Author Dick Jain [facility] Note Date/Time March 04, 2025 6:48a m [facility] Medical Records Department [address] [place] [address] H&P Exam - Hospitalist 03/04/25 0014 MR#: [id number] Acct: [id number] Name: BOAZ GOLDSTEIN Rep #:[id number] : 1965 59 From: Dick Nur DO PCP: Dr. Hu Hairston MD Status:ADM I N Location: MS3 [id number] [facility] - General General Date of Admission: 03/04/25 Date of Service: 03/04/25 Chief Complaint: Left Lat Cellulitis. HPI Narrative BOAZ GOLDSTEIN, is a 59 F with a past medical history of essential hypertension; on amlodipine, hyperlipidemia; on atorvastatin, hypothyroidism; on levothyroxine, obesity; with BMI of 36.7 this admission, history of tobacco abuse; with subsequent asthma/COPD, history of laryngeal mass, history of excision of abdominal wall tumor, history of colon polyps, GERD; currently not on treatment, OA; with scoliosis and recent visit to this ER yesterday for treatment of cellulitis of the Left latissimus dorsi muscle and initially started as an insect bite the patient noted to have a ~6 cm x ~3 cm area of erythema with a focal area of fluctuance and induration consistent with suspected abscess; s/p I&D which yielded ~3-4 cc of mostly bloody purulent fluidwhich was sent for culture. Patient then discharged home on oral trimethoprim-sulfamethoxazole for 7 days who now re-presents to [facility] ERcomplaining of worsening symptoms with fever and lightheadedness. Ms. Goldstein reports she did not take any acetaminophen or ibuprofen to manage her fever - she just decided to come back in for further evaluation and treatment. She also admits to associated slight lightheadedness but she denies related chills, runny nose, sore throat, ear pain, shortness of breath, cough, chest pain, palpitations, heart racing, headache or rash. In the ER she was noted to have a CT scan of the chest which revealed diffuse skin and subcutaneous soft tissue thickening with subcutaneous fat stranding of the left posterior lateral chest wall likely due to Cellulitis with no obvious underlying fluid density or abscess formation. Unremarkable left posterolateral chest wall muscles. Bilateral upper lobe reticulonodular fibrotic scarring with calcified pulmonary nodules with no obvious masses, consolidations or cavitary changes. She was then diagnosed with Cellulitis complicated by Hypokalemia 3.1 mmol/L and moderate Thrombocytopenia of 126K both present on admission and she was then admitted to the general medical floor for ongoing care for state that is expected to extend beyond 2 midnights. [facility] Medical History Alcohol use Abscessed tooth Post-menopausal [...] pulmonary disease) 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 Home Medications ?Medication ?Instructions ?Recorded ?Last Taken ?Type amlodipine 5 mg tablet 5 mg PO DAILY #90 tabs 05/0701/26/25 Rx atorvastatin 10 mg tablet 10 mg PO QHS #90 tabs 01/25/25 Rx albuterol sulfate 90 mcg/actuation 2 puff inhalation Q 4H PRN 02/17/24 02/22/24 History aerosol inhaler shortness of breath or wheez ing aspirin 81 mg chewable tablet 1 tab PO DAILY 03/03/25 Unknown History levothyroxine 137 mcg tablet 137 mcg PO DAILY 03/04/25 Unknown History Allergy/AdvReac Type Severity Reaction Status Date / Time cephalexin monohydrate (From Allergy Hives Verified 03/03/25 21:44 Keflex) latex Allergy Rash Verified 03/03/25 21:44 Penicillins (PCN) Allergy Hives Verified 03/03/25 21:44 Family History Grandfather Kidney disease Heart disease Colon cancer Sister Lung cancer Seizures Mother Cancer Diabetes Daughter Hypertension Thyroid disorder Surgical History Hx of colonoscopy History of cholecystectomy History of delivery Social History Smoking Status: Former smoker second hand exposure: Yes quit status: not considering quitting alcohol intake: never substance use type: does not use caffeine: Yes what type of physical activity do you participate in: none seatbelt use: always do you feel safe at home: Yes additional social history: Employed Self reliance single ROS ROS Narrative Review of Systems: Constitutional: Patient admits to fever and slight lightheadedness but she denies chills as per HPI. Eyes: Patient denies change in vision or discharge from eyes. ENT: Patient denies runny nose, sore throat or ear pain. Resp: Patient denies shortness of breath or cough. CV: Patient denies chest pain, palpitations, heart racing or lower extremity edema. GI: Patient denies abdominal pain, nausea, vomiting, diarrhea or constipation. : Patient denies dysuria, hematuria or urinary frequency. MSK: Patient denies arthralgias or myalgias. Skin: Patient has erythema overlying her Left latissimus dorsi muscle ~6 cm x ~3cm with evidence of recent I&D and no fluid drainage at this time as per HPI. Psych: Patient denies symptoms of uncontrolled depression or anxiety. Neuro: Patient has headache, paresthesias or focal neurologic deficits. Allergies: Patient denies lip swelling, tongue swelling or urticaria. Endocrinology: Patient denies polyuria, polydipsia, polyphagia or heat/cold intolerance. 14 point ROS otherwise negative except for positives noted above in HPI. Vital Signs Vital Signs Vital Signs: 03/03/25 21:42 03/03/25 21:50 03/03/25 22:43 Temperature 99.9 F H Temperature Source Oral Pulse Rate 107 H Respiratory Rate 20 H Respiratory Effort Normal Non-Labored Blood Pressure 141/80 H Blood Pressure Mean 100 Pulse Ox 98 98 Oxygen Delivery Method Room Air Room Air 03/03/25 23:09 03/03/25 23:41 Temperature 98.8 F Temperature Source Oral Pulse Rate 96 89 Respiratory Rate 20 H Respiratory Effort Blood Pressure 147/96 H 147/96 H Blood Pressure Mean 113 113 Pulse Ox 97 96 Oxygen Delivery Method Room Air Room Air Weight Weight: 234 lb 5 oz Body Mass Index (BMI) 36.6 Physical Exam Const alert, oriented x3 and no apparent distress Constitutional Narrative: Obese. General Appearance: cooperative HEENT normocephalic, head/scalp atraumatic, hearing grossly normal bilaterally and moist oral mucous membranes Eyes PERRL, EOMs intact bilaterally and conjunctivae normal Neck no lymphadenopathy, supple and no JVD Resp normal respiratory effort, no retractions, no use of accessory muscles and clearto auscultation bilaterally Cardio regular rate and regular rhythm GI normal to inspection, nondistended, normoactive bowel sounds, soft to palpation,non-tender and non-distended Extremity normal to inspection, full ROM and no clubbing, cyanosis or edema Skin Skin Narrative: Patient has erythema overlying her Left latissimus dorsi muscle ~6 cm x ~3 cm with evidence of recent I&D and no fluid drainage at this time Neuro oriented x3, CN's II-XII intact bilaterally, moves all extremities and no focal motor deficits Sensorium / Orientation: awake, alert, oriented to person, oriented to place andoriented to time Speech: speech normal Psych affect normal Results Medical Records Data Attestation: I reviewed the patient's medical records Lab / Micro Data Attestation: I reviewed the patient's lab results. 03/03/25 22:31 03/03/25 22:31 Labs: Laboratory Results - last 24 hr 03/03/25 22:31: WBC 7.0, RBC 4.17 L, Hgb 13.0, Hct 38.3, MCV 91.8, MCH 31.2, MCHC 33.9, RDW Std Deviation 49.5 H, RDW Coeff of Vinicio 14.6, Plt Count 126 L, MPV11.3, Immature Gran % (Auto) 0.600, Neut % (Auto) 72.7 H, Lymph % (Auto) 17.3 L,Wolfe % (Auto) 8.6, Eos % (Auto) 0.1, Baso % (Auto) 0.7, Absolute Neuts (auto) 5.1, Absolute Lymphs (auto) 1.21, Nucleated RBC % 0, PT 13.1, INR 1.0, APTT 26.5, Sodium 136, Potassium 3.1 L, Chloride 101, Carbon Dioxide 21.3, Anion Gap 13, BUN 8, Creatinine 0.74, Estim Creat Clear Calc 100.16, Est GFR (MDRD) Non-Af92, BUN/Creatinine Ratio 10.8, Glucose 106 H, Lactic Acid 1.0, Calcium 8.0, Total Bilirubin 0.44, AST 61 H, ALT 51 H, Alkaline Phosphatase 103, Total Protein 7.1, Albumin 4.1, Globulin 3.0, Albumin/Globulin Ratio 1.4 Imaging Radiology Impression Chest CT 03/03/25 22:16 IMPRESSION: Diffuse skin and subcutaneous soft tissue thickening with subcutaneous fat stranding of the left posterolateral chest wall, possibly cellulitis with no obvious underlying fluid density abscesses formation. Unremarkable left posterolateral chest wall muscles. Bilateral upper lobes reticulonodular and fibrotic scarring with calcified pulmonary nodules. No obvious pulmonary masses, consolidations or cavitary changes. Reading [facility] Assessment & Plan Assessment/Plan (1) Cellulitis: QUALIFIERS: Site of cellulitis: trunk Site of cellulitis of trunk: unspecified site Qualified Code(s): L03.319 - Cellulitis of trunk, unspecified (2) Hypokalemia: (3) Thrombocytopenia: (4) Obesity (BMI 30-39.9): (5) Tobacco abuse: PLAN: Plan 1. CT scan of the chest which revealed diffuse skin and subcutaneous soft tissue thickening with subcutaneous fat stranding of the left posterior lateral chest wall likely due to Cellulitis with no obvious underlying fluid density or abscess formation - Admit to general medical floor. Continue empiric IV vancomycin begun in ER and await culture and sensitivity data which have been pending since yesterday. Give ondansetron IV as needed for nausea vomiting. Give acetaminophen as needed for [id number]-[id number] (level 1-5/10) pain or fever. Give oxycodone as needed for severe (level 6-10/10) pain. 2. Hypokalemia 3.1 mmol/L present on admission complicating #1 - Give supplemental KCl and then recheck level in a.m. to confirm repletion. 3. Thrombocytopenia of 126K present on admission compounding #1 & #2 - Check CBC daily to follow trend. 4. Recent visit to this ER yesterday for treatment of cellulitis of the Left latissimus dorsi region and initially started as an insect bite the patient noted to have a ~6 cm x ~3 cm area of erythema with a focal area of fluctuance and induration consistent with suspected abscess; s/p I&D which yielded ~3-4 cc of mostly bloody purulent fluid which was sent for culture. Patient then discharged home on oral trimethoprim-sulfamethoxazole for 7 days - Noted. 5. Obesity (class II); with BMI of 36.7 this admission adding to the burden of disease outlined from #1 - #4 - Weight loss was recommended. Check TSH. This complicates her case may improve recovery. 6. History of tobacco abuse; with subsequent asthma/COPD with CXR that revealedBilateral upper lobe reticulonodular fibrotic scarring with calcified pulmonary nodules with no obvious masses, consolidations or cavitary changes - Stable and without evidence of acute flare at this time. Continue as needed nebulizers as previous. 7. Essential hypertension; on amlodipine - Resume amlodipine as previous plus give as needed IV hydralazine for systolic blood pressure greater than 160 mmHg. 8. Hyperlipidemia; on atorvastatin - Maintain statin. 9. Hypothyroidism; on levothyroxine - Continue present therapy and check TSH. 10. History of laryngeal mass - Noted. 11. History of excision of abdominal wall tumor - Noted. 12. History of colon polyps - Noted. 13. GERD; currently not on treatment - Start PPI if symptoms develop. 14. OA; with scoliosis - Stable. We will follow pain regimen and scale as outlined in #1. 15. DVT prophylaxis - Enoxaparin 40 mg sq daily plus SCDs. Total time: Approximately (but not less than) 75 minutes. Charges/Coding Visit Charges Inpatient E&M: 44234 Init Hosp L3 03/04/25 0648 <Electronically signed by Dick Perez DO> Cosigner Signature (if applicable): CC: Dr. Dick Perez DO; Dr. Hu Hairstno MD~ Signed [facility] Work Phone: 1(257) 159-946207-06-2025 History and physical note [facility] Medical Records Department [address] [place] [address] H&P Exam - Hospitalist 03/04/25 0014 MR#: [id number] Acct: [id number] Name: BOAZ GOLDSTEIN Rep #:[id number] : 1965 59 From: Dick Nur DO PCP: Dr. Hu Hairston MD Status:ADM I N Location: [facility] [id number] [facility] - General General Date of Admission: 03/04/25 Date of Service: 03/04/25 Chief Complaint: Left Lat Cellulitis. HPI Narrative BOAZ GOLDSTEIN, is a 59 F with a past medical history of essential hypertension; on amlodipine, hyperlipidemia; on atorvastatin, hypothyroidism; on levothyroxine, obesity; with BMI of 36.7 this admission, history of tobacco abuse; with subsequent asthma/COPD, history of laryngeal mass, history of exci samara of abdominal wall tumor, history of colon polyps, GERD; currently not on treatment, OA; with scoliosis and recent visit to this ER yesterday for treatment of cellulitis of the Left latissimus dorsi muscle and initially started as an insect bite the patient noted to have a ~6 cm x ~3 cm area of erythema with a focal area of fluctuance and induration consistent with suspected abscess; s/p I&D which yielded ~3-4 cc of mostly bloody purulent fluidwhich was sent for culture. Patient then discharged home on oral trimethoprim-sulfamethoxazole for 7 days who [facility] symptoms with fever and lightheadedness. Ms. Goldstein reports she did not take any acetaminophen or ibuprofen to manage her fever - she just decided to come back in for further evaluation and treatment. She also admits to associated slight lightheadedness but she denies related chills, runny nose, sore throat, ear pain, shortness of breath, cough, chest pain, palpitations, heart racing, headache or rash. In the ER she was noted to have a CT scan of the chest which revealed diffuse skin and subcutaneous soft tissue thickening with subcutaneous fat stranding of the left posterior lateral chest wall likely due to Cellulitis with no obvious underlying fluid density or abscess formation. Unremarkable left posterolateral chest wall muscles. Bilateral upper lobe reticulonodular fibrotic scarring with calcified pulmonary nodules with no obvious masses, consolidations or cavitary changes. She was then diagnosed with Cellulitis complicatedby Hypokalemia 3.1 mmol/L and moderate Thrombocytopenia of 126K both present on admission and she was then admitted to the general medical floor for ongoing care for state that is expected to extend beyond 2 midnights. [facility] Medical History Alcohol use Abscessed tooth Post-menopausal [...] pulmonary disease) 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 Home Medications ?Medication ?Instructions ?Recorded ?Last Taken ?Type amlodipine 5 mg tablet 5 mg PO DAILY #90 tabs 05/0701/26/25 Rx atorvastatin 10 mg tablet 10 mg PO QHS #90 tabs 01/25/25 Rx albuterol sulfate 90 mcg/actuation 2 puff inhalation Q 4H PRN 02/17/24 02/22/24 History aerosol inhaler shortness of breath or wheez ing aspirin 81 mg chewable tablet 1 tab PO DAILY 03/03/25 Unknown History levothyroxine 137 mcg tablet 137 mcg PO DAILY 03/04/25 Unknown History Allergy/AdvReac Type Severity Reaction Status Date / Time cephalexin monohydrate (From Allergy Hives Verified 03/03/25 21:44 Keflex) latex Allergy Rash Verified 03/03/25 21:44 Penicillins (PCN) Allergy Hives Verified 03/03/25 21:44 Family History Grandfather Kidney disease Heart disease Colon cancer Sister Lung cancer Seizures Mother Cancer Diabetes Daughter Hypertension Thyroid disorder Surgical History Hx of colonoscopy History of cholecystectomy History of delivery Social History Smoking Status: Former smoker second hand exposure: Yes quit status: not considering quitting alcohol intake: never substance use type: does not use caffeine: Yes what type of physical activity do you participate in: none seatbelt use: always do you feel safe at home: Yes additional social history: Employed Self reliance single ROS ROS Narrative Review of Systems: Constitutional: Patient admits to fever and slight lightheadedness but she denies chills as per HPI. Eyes: Patient denies change in vision or discharge from eyes. ENT: Patient denies runny nose, sore throat or ear pain. Resp: Patient denies shortness of breath or cough. CV: Patient denies chest pain, palpitations, heart racing or lower extremity edema. GI: Patient denies abdominal pain, nausea, vomiting, diarrhea or constipation. : Patient denies dysuria, hematuria or urinary frequency. MSK: Patient denies arthralgias or myalgias. Skin: Patient has erythema overlying her Left latissimus dorsi muscle ~6 cm x ~3cm with evidence ofrecent I&D and no fluid drainage at this time as per HPI. Psych: Patient denies symptoms of uncontrolled depression or anxiety. Neuro: Patient has headache, paresthesias or focal neurologic deficits. Allergies: Patient denies lip swelling, tongue swelling or urticaria. Endocrinology: Patient denies polyuria, polydipsia, polyphagia or heat/cold intolerance. 14 point ROS otherwise negative except for positives noted above in HPI. Vital Signs Vital Signs Vital Signs: 03/03/25 21:42 03/03/25 21:50 03/03/25 22:43 Temperature 99.9 F H Temperature Source Oral Pulse Rate 107 H Respiratory Rate 20 H Respiratory Effort Normal Non-Labored Blood Pressure 141/80 H Blood Pressure Mean 100 Pulse Ox 98 98 Oxygen Delivery Method Room Air Room Air 03/03/25 23:09 03/03/25 23:41 Temperature 98.8 F Temperature Source Oral Pulse Rate 96 89 Respiratory Rate 20 H Respiratory Effort Blood Pressure 147/96 H 147/96 H Blood Pressure Mean 113 113 Pulse Ox 97 96 Oxygen Delivery Method Room Air Room Air Weight Weight: 234 lb 5 oz Body Mass Index (BMI) 36.6 Physical Exam Const alert, oriented x3 and no apparent distress Constitutional Narrative: Obese. General Appearance: cooperative HEENT normocephalic, head/scalp atraumatic, hearing grossly normal bilaterally and moist oral mucous membranes Eyes PERRL, EOMs intact bilaterally and conjunctivae normal Neck no lymphadenopathy, supple and no JVD Resp normal respiratory effort, no retractions, no use of accessory muscles and clearto auscultation bilaterally Cardio regular rate and regular rhythm GI normal to inspection, nondistended, normoactive bowel sounds, soft to palpation,non-tender and non-distended Extremity normal to inspection, full ROM and no clubbing, cyanosis or edema Skin Skin Narrative: Patient has erythema overlying her Left latissimus dorsi muscle ~6 cm x ~3 cm with evidence of recent I&D and no fluid drainage at this time Neuro oriented x3, CN's II-XII intact bilaterally, moves all extremities and no focal motor deficits Sensorium / Orientation: awake, alert, oriented to person, oriented to place andoriented to time Speech: speech normal Psych affect normal Results Medical Records Data Attestation: I reviewed the patient's medical records Lab / Micro Data Attestation: I reviewed the patient's lab results. 03/03/25 22:31 03/03/25 22:31 Labs: Laboratory Results - last 24 hr 03/03/25 22:31: WBC 7.0, RBC 4.17 L, Hgb 13.0, Hct 38.3, MCV 91.8, MCH 31.2, MCHC 33.9, RDW Std Deviation 49.5 H, RDW Coeff of Vinicio 14.6, Plt Count 126 L, MPV11.3, Immature Gran % (Auto) 0.600, Neut %(Auto) 72.7 H, Lymph % (Auto) 17.3 L,Wolfe % (Auto) 8.6, Eos % (Auto) 0.1, Baso % (Auto) 0.7, Absolute Neuts (auto) 5.1, Absolute Lymphs (auto) 1.21, Nucleated RBC % 0, PT 13.1, INR 1.0, APTT 26.5, Sodium 136, Potassium 3.1 L, Chloride 101, Carbon Dioxide 21.3, Anion Gap 13, BUN 8, Creatinine 0.74, Estim Creat Clear Calc 100.16, Est GFR (MDRD) Non- Af92, BUN/Creatinine Ratio 10.8, Glucose 106 H, Lactic Acid 1.0, Calcium 8.0, Total Bilirubin 0.44, AST 61 H, ALT 51 H, Alkaline Phosphatase 103, Total Protein 7.1, Albumin 4.1, Globulin 3.0, Albumin/Globulin Ratio 1.4 Imaging Radiology Impression Chest CT 03/03/25 22:16 IMPRESSION: Diffuse skin and subcutaneous soft tissue thickening with subcutaneous fat stranding of the left posterolateral chest wall, possibly cellulitis with no obvious underlying fluid density abscesses formation. Unremarkable leftposterolateral chest wall muscles. Bilateral upper lobes reticulonodular and fibrotic scarring with calcified pulmonary nodules. No obvious pulmonary masses, consolidations or cavitary changes. [facility] Assessment & Plan Assessment/Plan (1) Cellulitis: QUALIFIERS: Site of cellulitis: trunk Site of cellulitis of trunk: unspecified site Qualified Code(s): L03.319 - Cellulitis of trunk, unspecified (2) Hypokalemia: (3) Thrombocytopenia: (4) Obesity (BMI 30-39.9): (5) Tobacco abuse: PLAN: Plan 1. CT scan of the chest which revealed diffuse skin and subcutaneous soft tissue thickening with subcutaneous fat stranding of the left posterior lateral chest wall likely due to Cellulitis with no obvious underlying fluid density or abscess formation - Admit to general medical floor. Continue empiric IV vancomycin begun in ER and await culture and sensitivity data which have been pending since yesterday. Give ondansetron IV as needed for nausea vomiting. Give acetaminophen as needed for [id number] (level 1-5/10) pain or fever. Give oxycodone as needed for severe (level 6-10/10) pain. 2. Hypokalemia 3.1 mmol/L present on admission complicating #1 - Give supplemental KCl and then recheck level in a.m. to confirm repletion. 3. Thrombocytopenia of 126K present on admission compounding #1 & #2 - Check CBC daily to follow trend. 4. Recent visit to this ER yesterday for treatment of cellulitis of the Left latissimus dorsi region and initially started as an insect bite the patient noted to have a ~6 cm x ~3 cm area of erythemawith a focal area of fluctuance and induration consistent with suspected abscess; s/p I&D whichyielded ~3-4 cc of mostly bloody purulent fluid which was sent for culture. Patient then dischargedhome on oral trimethoprim-sulfamethoxazole for 7 days - Noted. 5. Obesity (class II); with BMI of 36.7 this admission adding to the burden of disease outlined from #1 - #4 - Weight loss was recommended. Check TSH. This complicates her case may improve recovery. 6. History of tobacco abuse; with subsequent asthma/COPD with CXR that revealedBilateral upper lobereticulonodular fibrotic scarring with calcified pulmonary nodules with no obvious masses, consolidations or cavitary changes - Stable and without evidence of acute flare at this time. Continue as needed nebulizers as previous. 7. Essential hypertension; on amlodipine - Resume amlodipine as previous plus give as needed IV hydralazine for systolic blood pressure greater than 160 mmHg. 8. Hyperlipidemia; on atorvastatin - Maintain statin. 9. Hypothyroidism; on levothyroxine - Continue present therapy and check TSH. 10. History of laryngeal mass - Noted. 11. History of excision of abdominal wall tumor - Noted. 12. History of colon polyps - Noted. 13. GERD; currently not on treatment - Start PPI if symptoms develop. 14. OA; with scoliosis - Stable. We will follow pain regimen and scale as outlined in #1. 15. DVT prophylaxis - Enoxaparin 40 mg sq daily plus SCDs. Total time: Approximately (but not less than) 75 minutes. Charges/Coding Visit Charges Inpatient E&M: 52321 Init Hosp L3 03/04/25 0648 Cosigner Signature (if applicable): CC: Dr. Dick Perez, DO; Dr. Hu Hairston MD~ Signed [facility]07-06-2025 Consult note Author Esa Beasley [facility] Note Date/Time March 04, 2025 2:29a [facility] Medical Records Department [address] [place] [address] Pharmacokinetic/Renal -Consult 03/04/25 0216 MR#: [id number] Acct: [id number] Name: BOAZ GOLDSTEIN Rep #:[id number] : 1965 59 From: Esa Beasley PCP: Dr. Hu Hairston MD Status:ADM I N Y Location: [place] [address] Consult Antibiotic Management Pharmacy has been consulted to manage selected antibiotic: Vancomycin Type of Intervention Type of Consult: New start Suspected Infection Suspected Infection: Skin/Soft tissue Labs Labs: Sodium 136 mmol/L (133-145) 03/03/25 22:31 Potassium 3.1 mmol/L (3.3-5.1) L 03/03/25 22:31 Chloride 101 mmol/L (98-108) 03/03/25 22:31 Carbon Dioxide 21.3 mmol/L (21.0-32.0) 03/03/25 22:31 Anion Gap 13 (5-15) 03/03/25 22:31 BUN 8 mg/dL (4-19) 03/03/25 22:31 Creatinine 0.74 mg/dL (0.70-1.20) 03/03/25 22:31 Est GFR (MDRD) Non-Af 92 (>60) 03/03/25 22:31 BUN/Creatinine Ratio 10.8 RATIO (10-20) 03/03/25 22:31 Glucose 106 mg/dL (70-99) H 03/03/25 22:31 Dosing Weight Weight used for dosin.5 kg Estimated Creatinine Clearance Estimated Creatinine Clearance: 100 Goal Trough Goal Trough: 15-20 mcg/mL Pharmacy Plan for Drug Dosing Pharmacy Plan for Drug Dosing: Pharmacy Service will continue to monitor and adjust dosing as required. Follow-Up Labs Follow-Up Labs: Trough: Vancomycin Date/Time Labs Ordered Labs to be done on [date and time ordered]: 03/04/25 @2230 03/04/257 <Electronically signed by Esa Villalba ds> Date _ Esa Beasley 03/04/25228 <Electronically signed by Dick Sloan DO> Cosigner Signature (if applicable): Date Dick Perez DO CC: ~ Signed [facility] Work Phone: 1(777) 243-749007-06-2025 Evaluation note* Diagnosis Onset Date Resolution Status Admit Date Abscess acute March 04, 2025 12:43am Cellulitis acute March 04, 2025 12:43am Hypokalemia acute March 04 12:43am Obesity (BMI 30-39.9) acute Feb 12:43am Thrombocytopenia acute February 12:43am Tobacco abuse chronic March 04 12:43am [facility] Work Phone: 1(465) 358-684407-06-2025 Evaluation note* Diagnosis Onset Date Resolution Status Admit Date Abscess inactive March 04, 2025 12:43am Cellulitis inactive March 04, 2025 12:43am Obesity (BMI 30-39.9) inactive Feb 12:43am Thrombocytopenia inactive February 12:43am Tobacco abuse inactive March 04 025 12:43am Hypokalemia deleted March 04 12:43[facility] Work Phone: 1(471) 575-608707-06-2025 Consult note [facility] Medical Records Department [address] [place] [address] Pharmacokinetic/Renal -Consult 03/04/25215 MR#: [id number] Acct: [id number] Name: BOAZ GOLDSTEIN Rep #:[id number] : 1965 59 From: Esa Beasley PCP: Dr. Hu Hairston MD Status:ADM I N Y Location: [place] [address]-1 Consult Antibiotic Management Pharmacy has been consulted to manage selected antibiotic: Vancomycin Type of Intervention Type of Consult: New start Suspected Infection Suspected Infection: Skin/Soft tissue Labs Labs: Sodium 136 mmol/L (133-145) 03/03/25 22:31 Potassium 3.1 mmol/L (3.3-5.1) L 03/03/25 22:31 Chloride 101 mmol/L (98-108) 03/03/25 22:31 Carbon Dioxide 21.3 mmol/L (21.0-32.0) 03/03/25 22:31 Anion Gap 13 (5-15) 03/03/25 22:31 BUN 8 mg/dL (4-19) 03/03/25 22:31 Creatinine 0.74 mg/dL (0.70-1.20) 03/03/25 22:31 Est GFR (MDRD) Non-Af 92 (>60) 03/03/25 22:31 BUN/Creatinine Ratio 10.8 RATIO (10-20) 03/03/25 22:31 Glucose 106 mg/dL (70-99) H 03/03/25 22:31 Dosing Weight Weight used for dosin.5 kg Estimated Creatinine Clearance Estimated Creatinine Clearance: 100 Goal Trough Goal Trough: 15-20 mcg/mL Pharmacy Plan for Drug Dosing Pharmacy Plan for Drug Dosing: Pharmacy Service will continue to monitor and adjust dosing as required. Follow-Up Labs Follow-Up Labs: Trough: Vancomycin Date/Time Labs Ordered Labs to be done on [date and time ordered]: 03/04/25 @2230 03/04/25216 ds> Date _ Esa Beasley 03/04/25 0229 nzo DO> Cosigner Signature (if applicable): Date Dick Perez DO CC: ~ Signed [facility]07-06-2025 Discharge summary Author Emiliano Cisse [facility] Note Date/Time March 04, 2025 12:27 am [facility] Medical Records Department [address] [place] [address] Emergency Department Summary 03/03/25 MR#: [id number] Acct: [id number] Name: BOAZ GOLDSTEIN Rep #:[id number] : 1965 59 From: Emiliano Payne PCP: Dr. Hu Hairston MD Status:ADM I N Location: [place] [address] HPI History of Present Illness Chief Complaint: Fever PFSH PFS Medical History Alcohol use Abscessed tooth Post-menopausal [...] pulmonary disease) 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 Home Medications ?Medication ?Instructions ?Recorded ?Last Taken ?Type amlodipine 5 mg tablet 5 mg PO DAILY #90 tabs 05/0701/26/25 Rx atorvastatin 10 mg tablet 10 mg PO QHS #90 tabs 01/25/25 Rx albuterol sulfate 90 mcg/actuation 2 puff inhalation Q 4H PRN 02/17/24 02/22/24 History aerosol inhaler shortness of breath or wheez ing aspirin 81 mg chewable tablet 1 tab PO DAILY 03/03/25 Unknown History levothyroxine 137 mcg tablet 137 mcg PO DAILY 03/04/25 Unknown History Allergy/AdvReac Type Severity Reaction Status Date / Time cephalexin monohydrate (From Allergy Hives Verified 03/03/25 21:44 Keflex) latex Allergy Rash Verified 03/03/25 21:44 Penicillins (PCN) Allergy Hives Verified 03/03/25 21:44 Family History Grandfather Kidney disease Heart disease Colon cancer Sister Lung cancer Seizures Mother Cancer Diabetes Daughter Hypertension Thyroid disorder Surgical History Hx of colonoscopy History of cholecystectomy History of delivery Social History Smoking Status: Former smoker second hand exposure: Yes quit status: not considering quitting alcohol intake: never substance use type: does not use caffeine: Yes what type of physical activity do you participate in: none seatbelt use: always do you feel safe at home: Yes additional social 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 Physical Exam Const Vital Signs: 03/03/25 21:42 03/03/25 21:50 03/03/25 22:43 Temperature 99.9 F H Temperature Source Oral Pulse Rate 107 H Respiratory Rate 20 H Respiratory Effort Normal Non-Labored Blood Pressure 141/80 H Blood Pressure Mean 100 Pulse Ox 98 98 Oxygen Delivery Method Room Air Room Air 03/03/25 23:09 03/03/25 23:41 Temperature 98.8 F Temperature Source Oral Pulse Rate 96 89 Respiratory Rate 20 H Respiratory Effort Blood Pressure 147/96 H 147/96 H Blood Pressure Mean 113 113 Pulse Ox 97 96 Oxygen Delivery Method Room Air Room Air [facility] MDM MDM Narrative Medical decision making narrative: HISTORY OF PRESENT ILLNESS: Chief complaint: Fever 59-year-old female presents with fever in the setting abscess/cellulitis status post I&D yesterday. Patient notes she did not take any Tyle ibuprofen today butnotes she feels feverish slightly lightheaded. Denies vomiting or abdominal pain. REVIEW OF SYSTEMS: Pertinent positives: Fever, cellulitis Pertinent negatives: As per HPI PHYSICAL EXAM: Nursing triage notes reviewed, Vital signs reviewed Constitutional: please see mdm HENT: MMM Eyes: Pupils equal round and reactive to light, Extraocular muscles intact Neck: No stridor, no JVD, full neck ROM Lungs: Clear to auscultation, No wheezing or rales. No increased work of breathing, no conversational dyspnea, no accessory muscle use, no nasal flaring. No respiratory distress noted Heart: Regular rate and rhythm, No murmurs, No rubs and No gallops, 2+ distal pulses (radial, femoral, posterior tibial) in all extremities Abdomen: Soft, there is no tenderness, rigidity, rebound or guarding, no obviousperitoneal signs, no palpable pulsatile abdominal masses, no auscultated abdominal bruit : No CVAT Extremities: No edema Neuro: No new focal neurological deficits, cranial nerves II through XII intact,5/5 strength in all present extremities. Intact sensation to light touch in all present extremities, 2+ reflexes bilateral patella tendons. Skin: Left latissimus dorsi erythema approximately 3 x 6 cm status post I&D withno obvious crepitus bullae or drainage noted. MEDICAL DECISION MAKING: Chief Complaint: please see HPI External records reviewed: Reviewed microbiology. Reviewed cultures from yesterday which showed no growth to date Factors affecting care: COPD, hypertension Social determinants of health: Denies drugs History obtained from others: none Consults: Internal medicine (Dr. Holland) MDM Narrative: Patient was initially tachycardic rate 107, tachypneic at a rate of 20 and borderline febrile with a temperature of 99.9. She is slightly diaphoretic but does not appear toxic. I considered the following differential diagnosis: Sepsis, intramuscular abscess I obtained labs per sepsis protocol to further determine if the patient was suffering from a life-threatening etiology. I did not obtain blood cultures urine or urine cultures as these tests were already pending in the lab from yesterday. I did obtain a CT scan to further assess left latissimus dorsi lesion Initially treated with fluids and vancomycin as well as antipyretics (Tylenol and Toradol) ALL IMAGES (IF OBTAINED) HAVE BEEN PERSONALLY REVIEWED AND INTERPRETED BY MYSELF. Lactate is wnl indicating no end-organ hypoperfusion and/or hypoxia. CBC with no leukocytosis, no anemia but noted BMP with hyponatremia concerning for dehydration, no acute kidney injury no other electrolyte abnormality Liver function tests with slight elevation in AST and ALT this is likely not clinically significant. Do not suspect she has had an dependably pathology Upon reevaluation patient heart rate improved to 89. Temperature improved to 98.8. I feel the patient be admitted given is her second visit in 2 days and she has signs of severe infection that did not get better with oral antibiotics at home. Shared decision making undertaken with patient. She agreed to stay in the hospital. The patient and/or family, caregivers express understanding. The patient and/orfamily, caregivers agrees with the plan. Shared decision making: I will have a discussion with the patient and or visitors regarding risk/benefits of further testing or admission. They will be made aware of of the risk/benefits inherent in this decision they will be given the opportunity to voice understanding. Total critical care time today provided was at least 0 minutes. This excludes separately billable procedures. Critical care time (if documented) is secondary to the patient having high probability of clinically significant/life threatening deterioration in the patient's condition which required my urgent intervention. Impression: 1. Fever 2. Tachycardic 3. Cellulitis 4. Thrombocytopenia 5. Hypokalemia Dispo: admit floor discussed with Amalia This note was generated with [employer] dictation software. It may contain incorrectwords, spelling, and punctuation that were not noted in review of the chart prior to signing. Lab Data Labs: Laboratory Results - last 24 hr 03/03/25 22:31 WBC 7.0 RBC 4.17 L Hgb 13.0 Hct 38.3 MCV 91.8 MCH 31.2 MCHC 33.9 RDW Std Deviation 49.5 H RDW Coeff of Vinicio 14.6 Plt Count 126 L MPV 11.3 Immature Gran % (Auto) 0.600 Neut % (Auto) 72.7 H Lymph % (Auto) 17.3 L Wolfe % (Auto) 8.6 Eos % (Auto) 0.1 Baso % (Auto) 0.7 Absolute Neuts (auto) 5.1 Absolute Lymphs (auto) 1.21 Nucleated RBC % 0 PT 13.1 INR 1.0 APTT 26.5 Sodium 136 Potassium 3.1 L Chloride 101 Carbon Dioxide 21.3 Anion Gap 13 BUN 8 Creatinine 0.74 Estim Creat Clear Calc 100.16 Est GFR (MDRD) Non-Af 92 BUN/Creatinine Ratio 10.8 Glucose 106 H Lactic Acid 1.0 Calcium 8.0 Total Bilirubin 0.44 AST 61 H ALT 51 H Alkaline Phosphatase 103 Total Protein 7.1 Albumin 4.1 Globulin 3.0 Albumin/Globulin Ratio 1.4 Radiography Diagnostic Testing: Clinical Impression(s) from Imaging Studies Chest CT 03/03/25 22:16 IMPRESSION: Diffuse skin and subcutaneous soft tissue thickening with subcutaneous fat stranding of the left posterolateral chest wall, possibly cellulitis with no obvious underlying fluid density abscesses formation. Unremarkable left posterolateral chest wall muscles. Bilateral upper lobes reticulonodular and fibrotic scarring with calcified pulmonary nodules. No obvious pulmonary masses, consolidations or cavitary changes. Reading Location: [place] [address] Discharge Plan Triage Chief Complaint: Fever ED Provider: Emiliano Cisse Dx/Rx/DC Orders Primary Care Provider: Hu Hairston What to do if you have Problems For any increased pain, shortness of breath, bleeding, nausea or vomiting, chestpain, or any unexpected problems, contact your Primary Care Provider. Call [facility] ([phone]) or report to the closest Emergency Room. Call 911 if necessary. 03/04/25 0027 <Electronically signed by Emiliano Cisse DO> Cosigner Signature (if applicable): CC: Dr. Hu Hairston MD ~ Signed [facility] Work Phone: 1(261) 664-775307-06-2025 Discharge summary [facility] Medical Records Department [address] [place] [id number] Emergency Department Summary 03/03/25 MR#: [id number] Acct: [id number] Name: BOAZ GOLDSTEIN Rep #:[id number] : 1965 59 From: Emiliano Payne PCP: Dr. Hu Hairston MD Status:ADM I N Location: [place] [address] HPI History of Present Illness Chief Complaint: Fever PFSH PFSH Medical History Alcohol use Abscessed tooth Post-menopausal [...] pulmonary disease) 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 Home Medications ?Medication ?Instructions ?Recorded ?Last Taken ?Type amlodipine 5 mg tablet 5 mg PO DAILY #90 tabs 05/0701/26/25 Rx atorvastatin 10 mg tablet 10 mg PO QHS #90 tabs 01/25/25 Rx albuterol sulfate 90 mcg/actuation 2 puff inhalation Q 4H PRN 02/17/24 02/22/24 History aerosol inhaler shortness of breath or wheez ing aspirin 81 mg chewable tablet 1 tab PO DAILY 03/03/25 Unknown History levothyroxine 137 mcg tablet 137 mcg PO DAILY 03/04/25 Unknown History Allergy/AdvReac Type Severity Reaction Status Date / Time cephalexin monohydrate (From Allergy Hives Verified 03/03/25 21:44 Keflex) latex Allergy Rash Verified 03/03/25 21:44 Penicillins (PCN) Allergy Hives Verified 03/03/25 21:44 Family History Grandfather Kidney disease Heart disease Colon cancer Sister Lung cancer Seizures Mother Cancer Diabetes Daughter Hypertension Thyroid disorder Surgical History Hx of colonoscopy History of cholecystectomy History of delivery Social History Smoking Status: Former smoker second hand exposure: Yes quit status: not considering quitting alcohol intake: never substance use type: does not use caffeine: Yes what type of physical activity do you participate in: none seatbelt use: always do you feel safe at home: Yes additional social 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 Physical Exam Const Vital Signs: 03/03/25 21:42 03/03/25 21:50 03/03/25 22:43 Temperature 99.9 F H Temperature Source Oral Pulse Rate 107 H Respiratory Rate 20 H Respiratory Effort Normal Non-Labored Blood Pressure 141/80 H Blood Pressure Mean 100 Pulse Ox 98 98 Oxygen Delivery Method Room Air Room Air 03/03/25 23:09 03/03/25 23:41 Temperature 98.8 F Temperature Source Oral Pulse Rate 96 89 Respiratory Rate 20 H Respiratory Effort Blood Pressure 147/96 H 147/96 H Blood Pressure Mean 113 113 Pulse Ox 97 96 Oxygen Delivery Method Room Air Room Air MDM MDM MDM Narrative Medical decision making narrative: HISTORY OF PRESENT ILLNESS: Chief complaint: Fever 59-year-old female presents with fever in the setting abscess/cellulitis status post I&D yesterday. Patient notes she did not take any Tyle ibuprofen today butnotes she feels feverish slightly lightheaded. Denies vomiting or abdominal pain. REVIEW OF SYSTEMS: Pertinent positives: Fever, cellulitis Pertinent negatives: As per HPI PHYSICAL EXAM: Nursing triage notes reviewed, Vital signs reviewed Constitutional: please see [facility] HENT: MMM Eyes: Pupils equal round and reactive to light, Extraocular muscles intact Neck: No stridor, no JVD, full neck ROM Lungs: Clear to auscultation, No wheezing or rales. No increased work of breathing, no conversational dyspnea, no accessory muscle use, no nasal flaring. No respiratory distress noted Heart: Regular rate and rhythm, No murmurs, No rubs and No gallops, 2+ distal pulses (radial, femoral, posterior tibial) in all extremities Abdomen: Soft, there is no tenderness, rigidity, rebound or guarding, no obviousperitoneal signs, no palpable pulsatile abdominal masses, no auscultated abdominal bruit : No CVAT Extremities: No edema Neuro: No new focal neurological deficits, cranial nerves II through XII intact,5/5 strength in allpresent extremities. Intact sensation to light touch in all present extremities, 2+ reflexes bilateral patella tendons. Skin: Left latissimus dorsi erythema approximately 3 x 6 cm status post I&D withno obvious crepitus bullae or drainage noted. MEDICAL DECISION MAKING: Chief Complaint: please see HPI External records reviewed: Reviewed microbiology. Reviewed cultures from yesterday which showed no growth to date Factors affecting care: COPD, hypertension Social determinants of health: Denies drugs History obtained from others: none Consults: Internal medicine (Dr. Holland) [facility] Narrative: Patient was initially tachycardic rate 107, tachypneic at a rate of 20 and borderline febrile with a temperature of 99.9. She is slightly diaphoretic but does not appear toxic. I considered the following differential diagnosis: Sepsis, intramuscular abscess I obtained labs per sepsis protocol to further determine if the patient was suffering from a life-threatening etiology. I did not obtain blood cultures urine or urine cultures as these tests were already pending in the lab from yesterday. I did obtain a CT scan to further assess left latissimus dorsi lesion Initially treated with fluids and vancomycin as well as antipyretics (Tylenol and Toradol) ALL IMAGES (IF OBTAINED) HAVE BEEN PERSONALLY REVIEWED AND INTERPRETED BY MYSELF. Lactate is wnl indicating no end-organ hypoperfusion and/or hypoxia. CBC with no leukocytosis, no anemia but noted BMP with hyponatremia concerning for dehydration, no acute kidney injury no other electrolyte abnormality Liver function tests with slight elevation in AST and ALT this is likely not clinically significant. Do not suspect she has had an dependably pathology Upon reevaluation patient heart rate improved to 89. Temperature improved to 98.8. I feel the patient be admitted given is her second visit in 2 days and she has signs of severe infection that did not get better with oral antibiotics at home. Shared decision making undertaken with patient. She agreed to stay in the hospital. The patient and/or family, caregivers express understanding. The patient and/orfamily, caregivers agrees with the plan. Shared decision making: I will have a discussion with the patient and or visitors regarding risk/benefits of further testing or admission. They will be made aware of of the risk/benefits inherent in this decision they will be given the opportunity to voice understanding. Total critical care time today provided was at least 0 minutes. This excludes separately billable procedures. Critical care time (if documented) is secondary to the patient having high probability ofclinically significant/life threatening deterioration in the patient's condition which required my urgent intervention. Impression: 1. Fever 2. Tachycardic 3. Cellulitis 4. Thrombocytopenia 5. Hypokalemia Dispo: admit floor discussed with Amalia This note was generated with BlackJet dictation software. It may contain incorrectwords, spelling, and punctuation that were not noted in review of the chart prior to signing. Lab Data Labs: Laboratory Results - last 24 hr 03/03/25 22:31 WBC 7.0 RBC 4.17 L Hgb 13.0 Hct 38.3 MCV 91.8 MCH 31.2 MCHC 33.9 RDW Std Deviation 49.5 H RDW Coeff of Vinicio 14.6 Plt Count 126 L MPV 11.3 Immature Gran % (Auto) 0.600 Neut % (Auto) 72.7 H Lymph % (Auto) 17.3 L Wolfe % (Auto) 8.6 Eos % (Auto) 0.1 Baso % (Auto) 0.7 Absolute Neuts (auto) 5.1 Absolute Lymphs (auto) 1.21 Nucleated RBC % 0 PT 13.1 INR 1.0 APTT 26.5 Sodium 136 Potassium 3.1 L Chloride 101 Carbon Dioxide 21.3 Anion Gap 13 BUN 8 Creatinine 0.74 Estim Creat Clear Calc 100.16 Est GFR (MDRD) Non-Af 92 BUN/Creatinine Ratio 10.8 Glucose 106 H Lactic Acid 1.0 Calcium 8.0 Total Bilirubin 0.44 AST 61 H ALT 51 H Alkaline Phosphatase 103 Total Protein 7.1 Albumin 4.1 Globulin 3.0 Albumin/Globulin Ratio 1.4 Radiography Diagnostic Testing: Clinical Impression(s) from Imaging Studies Chest CT 03/03/25 22:16 IMPRESSION: Diffuse skin and subcutaneous soft tissue thickening with subcutaneous fat stranding of the left posterolateral chest wall, possibly cellulitis with no obvious underlying fluid density abscesses formation. Unremarkable leftposterolateral chest wall muscles. Bilateral upper lobes reticulonodular and fibrotic scarring with calcified pulmonary nodules. No obvious pulmonary masses, consolidations or cavitary changes. Reading Location: [place] [address] Discharge Plan Triage Chief Complaint: Fever ED Provider: Emiliano Cisse Dx/Rx/DC Orders Primary Care Provider: Hu Hairston What to do if you have Problems For any increased pain, shortness of breath, bleeding, nausea or vomiting, chestpain, or any unexpected problems, contact your Primary Care Provider. Call [facility] ([phone]) or report tothe closest Emergency Room. Call 911 if necessary. 03/04/25 0027 Cosigner Signature (if applicable): CC: Dr. Hu Hairston MD ~ Signed [facility]07-05-2025 Radiology Diagnostic study note [facility] Imaging Services [address], [place] [address] Chest without Contrast MR#: [id number] Acct: [id number] Name: BOAZ GOLDSTEIN Rep #: [id number] : 1965 F 59 From: Kari De La Cruz MD PCP: Dr. Hu Hairston MD Status: REG E R Study:Chest without Contrast Date of Exam: 03/03/25 Exam# [id number] Ordering Dr: Feliciano Cisse DO PROCEDURE: CHEST WITHOUT CONTRAST 03/04/2025 REASON FOR EXAM: LEFT LATISSIMUS DORSI ABSCESS/CELLULITIS TECHNIQUE: Chest CT without contrast. Coronal and Sagittal reconstruction series were provided. One or more dose reduction techniques were used (e.g., Automated exposure control, adjustment of the mA and/or kV according to patient size, use of iterative reconstruction technique RADIATION DOSE SUMMARY: CTDlvol: mGy DLP: mGycm COMPARISON: 03-02-2025 FINDINGS: Diffuse skin and subcutaneous soft tissue thickening with subcutaneous fat stranding of the left posterolateral chest wall with no obvious underlying fluid density abscesses formation. Unremarkable left posterolateral chest wall muscles. Bilateral upper lobes reticulonodular and fibrotic scarring with calcified pulmonary nodules. No obvious pulmonary masses, consolidations or cavitary changes. Bilateral pulmonary atelectatic changes with patchy parenchymal opacities, possibly post infectioussequel. The heart size is within normal. No pleural or pericardial effusion. No pathologically enlarged lymph nodes are noted. No definite mass lesion in the chest wall. Intact bony thoracic cage with no fractures or osseous destruction. The examined vertebrae showing preserved height with no fracture of dislocation. Thoracic spondylosis. Scanned upper abdomen show hepatic steatosis. CT/Chest without Contrast IMPRESSION: Diffuse skin and subcutaneous soft tissue thickening with subcutaneous fat stranding of the left posterolateral chest wall, possibly cellulitis with no obvious underlying fluid density abscesses formation. Unremarkable leftposterolateral chest wall muscles. Bilateral upper lobes reticulonodular and fibrotic scarring with calcified pulmonary nodules. No obvious pulmonary masses, consolidations or cavitary changes. [facility] CC: Dr. Hu Hairston MD; Dr. Emiliano Cisse DO ~ Shipping Supervisor: Signed [facility]07-05-2025 Discharge summary Author Emiliano Cisse [facility] Note Date/Time March 04, 2025 12:27 am [facility] Medical Records Department [address] [place] [address] Emergency Department Summary 03/03/25 MR#: [id number] Acct: [id number] Name: BOAZ GOLDSTEIN Rep #:[id number] : 1965 59 From: Emiliano Payne PCP: Dr. Hu Hairston MD Status:ADM I N Location: MS3 TX956-9 HPI History of Present Illness Chief Complaint: Fever PFSH PFSH Medical History Alcohol use Abscessed tooth Post-menopausal [...] pulmonary disease) 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 Home Medications ?Medication ?Instructions ?Recorded ?Last Taken ?Type amlodipine 5 mg tablet 5 mg PO DAILY #90 tabs 05/0701/26/25 Rx atorvastatin 10 mg tablet 10 mg PO QHS #90 tabs 01/25/25 Rx albuterol sulfate 90 mcg/actuation 2 puff inhalation Q 4H PRN 02/17/24 02/22/24 History aerosol inhaler shortness of breath or wheez ing aspirin 81 mg chewable tablet 1 tab PO DAILY 03/03/25 Unknown History levothyroxine 137 mcg tablet 137 mcg PO DAILY 03/04/25 Unknown History Allergy/AdvReac Type Severity Reaction Status Date / Time cephalexin monohydrate (From Allergy Hives Verified 03/03/25 21:44 Keflex) latex Allergy Rash Verified 03/03/25 21:44 Penicillins (PCN) Allergy Hives Verified 03/03/25 21:44 Family History Grandfather Kidney disease Heart disease Colon cancer Sister Lung cancer Seizures Mother Cancer Diabetes Daughter Hypertension Thyroid disorder Surgical History Hx of colonoscopy History of cholecystectomy History of delivery Social History Smoking Status: Former smoker second hand exposure: Yes quit status: not considering quitting alcohol intake: never substance use type: does not use caffeine: Yes what type of physical activity do you participate in: none seatbelt use: always do you feel safe at home: Yes additional social 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 Physical Exam Const Vital Signs: 03/03/25 21:42 03/03/25 21:50 03/03/25 22:43 Temperature 99.9 F H Temperature Source Oral Pulse Rate 107 H Respiratory Rate 20 H Respiratory Effort Normal Non-Labored Blood Pressure 141/80 H Blood Pressure Mean 100 Pulse Ox 98 98 Oxygen Delivery Method Room Air Room Air 03/03/25 23:09 03/03/25 23:41 Temperature 98.8 F Temperature Source Oral Pulse Rate 96 89 Respiratory Rate 20 H Respiratory Effort Blood Pressure 147/96 H 147/96 H Blood Pressure Mean 113 113 Pulse Ox 97 96 Oxygen Delivery Method Room Air Room Air MDM [facility] Narrative Medical decision making narrative: HISTORY OF PRESENT ILLNESS: Chief complaint: Fever 59-year-old female presents with fever in the setting abscess/cellulitis status post I&D yesterday. Patient notes she did not take any Tyle ibuprofen today butnotes she feels feverish slightly lightheaded. Denies vomiting or abdominal pain. REVIEW OF SYSTEMS: Pertinent positives: Fever, cellulitis Pertinent negatives: As per HPI PHYSICAL EXAM: Nursing triage notes reviewed, Vital signs reviewed Constitutional: please see mdm HENT: MMM Eyes: Pupils equal round and reactive to light, Extraocular muscles intact Neck: No stridor, no JVD, full neck ROM Lungs: Clear to auscultation, No wheezing or rales. No increased work of breathing, no conversational dyspnea, no accessory muscle use, no nasal flaring. No respiratory distress noted Heart: Regular rate and rhythm, No murmurs, No rubs and No gallops, 2+ distal pulses (radial, femoral, posterior tibial) in all extremities Abdomen: Soft, there is no tenderness, rigidity, rebound or guarding, no obviousperitoneal signs, no palpable pulsatile abdominal masses, no auscultated abdominal bruit : No CVAT Extremities: No edema Neuro: No new focal neurological deficits, cranial nerves II through XII intact,5/5 strength in all present extremities. Intact sensation to light touch in all present extremities, 2+ reflexes bilateral patella tendons. Skin: Left latissimus dorsi erythema approximately 3 x 6 cm status post I&D withno obvious crepitus bullae or drainage noted. MEDICAL DECISION MAKING: Chief Complaint: please see HPI External records reviewed: Reviewed microbiology. Reviewed cultures from yesterday which showed no growth to date Factors affecting care: COPD, hypertension Social determinants of health: Denies drugs History obtained from others: none Consults: Internal medicine (Dr. Holland) MDM Narrative: Patient was initially tachycardic rate 107, tachypneic at a rate of 20 and borderline febrile with a temperature of 99.9. She is slightly diaphoretic but does not appear toxic. I considered the following differential diagnosis: Sepsis, intramuscular abscess I obtained labs per sepsis protocol to further determine if the patient was suffering from a life-threatening etiology. I did not obtain blood cultures urine or urine cultures as these tests were already pending in the lab from yesterday. I did obtain a CT scan to further assess left latissimus dorsi lesion Initially treated with fluids and vancomycin as well as antipyretics (Tylenol and Toradol) ALL IMAGES (IF OBTAINED) HAVE BEEN PERSONALLY REVIEWED AND INTERPRETED BY MYSELF. Lactate is wnl indicating no end-organ hypoperfusion and/or hypoxia. CBC with no leukocytosis, no anemia but noted BMP with hyponatremia concerning for dehydration, no acute kidney injury no other electrolyte abnormality Liver function tests with slight elevation in AST and ALT this is likely not clinically significant. Do not suspect she has had an dependably pathology Upon reevaluation patient heart rate improved to 89. Temperature improved to 98.8. I feel the patient be admitted given is her second visit in 2 days and she has signs of severe infection that did not get better with oral antibiotics at home. Shared decision making undertaken with patient. She agreed to stay in the hospital. The patient and/or family, caregivers express understanding. The patient and/orfamily, caregivers agrees with the plan. Shared decision making: I will have a discussion with the patient and or visitors regarding risk/benefits of further testing or admission. They will be made aware of of the risk/benefits inherent in this decision they will be given the opportunity to voice understanding. Total critical care time today provided was at least 0 minutes. This excludes separately billable procedures. Critical care time (if documented) is secondary to the patient having high probability of clinically significant/life threatening deterioration in the patient's condition which required my urgent intervention. Impression: 1. Fever 2. Tachycardic 3. Cellulitis 4. Thrombocytopenia 5. Hypokalemia Dispo: admit floor discussed with Amalia This note was generated with BlackJet dictation software. It may contain incorrectwords, spelling, and punctuation that were not noted in review of the chart prior to signing. Lab Data Labs: Laboratory Results - last 24 hr 03/03/25 22:31 WBC 7.0 RBC 4.17 L Hgb 13.0 Hct 38.3 MCV 91.8 MCH 31.2 MCHC 33.9 RDW Std Deviation 49.5 H RDW Coeff of Vinicio 14.6 Plt Count 126 L MPV 11.3 Immature Gran % (Auto) 0.600 Neut % (Auto) 72.7 H Lymph % (Auto) 17.3 L Wolfe % (Auto) 8.6 Eos % (Auto) 0.1 Baso % (Auto) 0.7 Absolute Neuts (auto) 5.1 Absolute Lymphs (auto) 1.21 Nucleated RBC % 0 PT 13.1 INR 1.0 APTT 26.5 Sodium 136 Potassium 3.1 L Chloride 101 Carbon Dioxide 21.3 Anion Gap 13 BUN 8 Creatinine 0.74 Estim Creat Clear Calc 100.16 Est GFR (MDRD) Non-Af 92 BUN/Creatinine Ratio 10.8 Glucose 106 H Lactic Acid 1.0 Calcium 8.0 Total Bilirubin 0.44 AST 61 H ALT 51 H Alkaline Phosphatase 103 Total Protein 7.1 Albumin 4.1 Globulin 3.0 Albumin/Globulin Ratio 1.4 Radiography Diagnostic Testing: Clinical Impression(s) from Imaging Studies Chest CT 03/03/25 22:16 IMPRESSION: Diffuse skin and subcutaneous soft tissue thickening with subcutaneous fat stranding of the left posterolateral chest wall, possibly cellulitis with no obvious underlying fluid density abscesses formation. Unremarkable left posterolateral chest wall muscles. Bilateral upper lobes reticulonodular and fibrotic scarring with calcified pulmonary nodules. No obvious pulmonary masses, consolidations or cavitary changes. Reading Location: [place] [address] Discharge Plan Triage Chief Complaint: Fever ED Provider: Emiliano Cisse Dx/Rx/DC Orders Primary Care Provider: Hu Hairston What to do if you have Problems For any increased pain, shortness of breath, bleeding, nausea or vomiting, chestpain, or any unexpected problems, contact your Primary Care Provider. Call [facility] ([phone]) or report to the closest Emergency Room. Call 911 if necessary. 03/04/25 0027 <Electronically signed by Emiliano Cisse DO> Cosigner Signature (if applicable): CC: Dr. Hu Hairston MD ~ Signed [facility] Work Phone: 1(447) 728-427107-04-2025 Discharge summary [facility] Medical Records Department [address] [place] [address] Emergency Department Summary 03/02/25 MR#: [id number] Acct: [id number] Name: BOAZ GOLDSTEIN Rep #:[id number] : 1965 59 From: Emiliano Payne PCP: Dr. Hu Hairston MD Status:REG E R Location: ED HPI History of Present Illness Chief Complaint[facility] Medical History Alcohol use Abscessed tooth Post-menopausal [...] pulmonary disease) 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 Home Medications ?Medication ?Instructions ?Recorded ?Last Taken ?Type amlodipine 5 mg tablet 5 mg PO DAILY #90 tabs 05/0701/26/25 Rx aspirin 81 mg capsule 81 mg PO DAILY #90 caps 04/2001/26/25 Rx atorvastatin 10 mg tablet 10 mg PO QHS #90 tabs 01/25/25 Rx levothyroxine 150 mcg tablet 150 mcg PO DAILY #90 tabs 05/07/22 01/26/25 Rx albuterol sulfate 90 mcg/actuation 2 puff inhalation Q 4H PRN 02/17/24 02/22/24 History aerosol inhaler shortness of breath or wheez ing prednisone 20 mg tablet See Rx Instructions .Route 0 01/26/25 Unknown Rx .COMPLEX #24 tabs prednisone 20 mg tablet 60 mg (3 x 20 mg) PO DAILY # 15 02/11/25 Unknown Rx TABLETS sulfamethoxazole 800 1 tab PO BID 7 days #14 tabs 03/02/25 Unknown Rx mg-trimethoprim 160 mg tablet (Bactrim DS) Allergy/AdvReac Type Severity Reaction Status Date / Time cephalexin monohydrate (From Allergy Hives Verified 03/02/25 15:26 Keflex) latex Allergy Rash Verified 03/02/25 15:26 Penicillins (PCN) Allergy Hives Verified 03/02/25 15:26 Family History Grandfather Kidney disease Heart disease Colon cancer Sister Lung cancer Seizures Mother Cancer Diabetes Daughter Hypertension Thyroid disorder Surgical History Hx of colonoscopy History of cholecystectomy History of delivery Social History Smoking Status: Light Smoker (<10/day) second hand exposure: Yes quit status: not considering quitting alcohol intake: never substance use type: does not use caffeine: Yes what type of physical activity do you participate in: none seatbelt use: always do you feel safe at home: Yes additional social 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 Physical Exam Const Vital Signs: 03/02/25 14:10 03/02/25 15:39 03/02/25 17:13 Temperature 101 F H 99.2 F H Temperature Source Oral Oral Pulse Rate 115 H 108 H Respiratory Rate 20 H 16 Blood Pressure 165/91 H 135/70 H Blood Pressure Mean 115 91 Pulse Ox 99 97 96 Oxygen Delivery Method Room Air Room Air Room Air 03/02/25 18:14 Temperature 99.0 F Temperature Source Pulse Rate 100 Respiratory Rate 20 H Blood Pressure 111/75 Blood Pressure Mean 87 Pulse Ox 98 Oxygen Delivery Method MDM MDM MDM Narrative Medical decision making narrative: HISTORY OF [id number] ILLNESS: Chief complaint: Bite 59-year-old female history of hyperlipidemia, hypertension, laryngeal mass, tobacco abuse and hypothyroidism as well as COPD presents with concern for a wound. She states she noticed that yesterday she thinks it could be a insect bite of some sort. She notes itching today and increased swelling. Denies fever, [place] vomiting. No severe pain in the left lateral mid back. REVIEW OF SYSTEMS: Pertinent positives: Wound, fever Pertinent negatives: Vomiting, chest pain, shortness of breath, cough, urinary complaint PHYSICAL EXAM: Nursing triage notes reviewed, Vital signs reviewed Constitutional: please see [facility] HENT: MMM Eyes: Pupils equal round and reactive to light, Extraocular muscles intact Neck: No stridor, no JVD, full neck ROM Lungs: Clear to auscultation, No wheezing or rales. No increased work of breathing, no conversational dyspnea, no accessory muscle use, no nasal flaring. No respiratory distress noted Heart: Regular rate and rhythm, No murmurs, No rubs and No gallops, 2+ distal pulses (radial, femoral, posterior tibial) in all extremities Abdomen: Soft, there is no tenderness, rigidity, rebound or guarding, no obviousperitoneal signs, no palpable pulsatile abdominal masses, no auscultated abdominal bruit : No CVAT Skin: Approximately 6 x 3 cm area of erythema with a focal area of fluctuance and induration consistent with likely abscess. Performed POCUS ultrasound whichshowed a fluid collection approximately 0.5 cm deep. This area was incised and drained. Please see procedure note. Incision and drainage yielded approximately 3 to 4 cc of mostly bloody/purulent fluid. This wound was cultured. MEDICAL DECISION MAKING: Chief Complaint: please see [facility] External records reviewed: Factors affecting care: As per [facility] Social determinants of health: none History obtained from others: Family Consults: Internal medicine (Dr. Jasso) [facility] Narrative: [The patient was initially hypertensive with a blood pressure 165/91, tachycardic with heart rate 115, tachypneic respiratory 20, temperature 101. She saturating 99% on room air. Exam with palpable abscess surrounding cellulitis of the left latissimus dorsi/posterior axillary line I considered the following differential diagnosis: Sepsis, abscess, UTI, pneumonia I obtained a broad lab and imaging workup to further determine if the patient was suffering from a life-threatening etiology. Sepsis protocol initiated. Empiric IV vancomycin given Also treat the patient's fever with a 1 g of Tylenol and 30 mg of IV Toradol ALL IMAGES (IF OBTAINED) HAVE BEEN PERSONALLY REVIEWED AND INTERPRETED BY MYSELF. CBC with no leukocytosis to suggest systemic inflammation, no anemia or thrombocytopenia No coagulopathy BMP without evidence of significant electrolyte abnormalities, no anion gap, no acute kidney injury. LFTs show no evidence of hepatobiliary pathology. Urinalysis shows no evidence of urinary inflammation suggestive of UTI EKG with sinus tachycardia rate of 113, normal axis, normal intervals, no STEMI Tentative plan at this time is to offer admission given multiple SIRS criteria and source of infection concern for sepsis in the setting of abscess. Discussed with hospice Dr. Jasso. He stated she does not meet true sepsis criteria as she is only mildly tachycardic do not feel like need to be admitted. He notes he will come in evaluate the patient and have a shared decision-making discussion with her. After shared dissipating discussion thepatient was amenable to discharge home. Repeat heart rate was down to 100. Her pressures remained stable she tachypneic at 20 was afebrile. She was alert and orient x 3 and had capacity to make her medical status and chose to go home with oral antibiotics and lieu of IV antibiotics admission to await cultures. Gave oral doxycycline. Gave strict return precautions. Procedure: Incision and Drainage simple The procedure was performed by myself. Location: Left latissimus dorsi Risks and benefits: Risks, benefits, and alternatives were discussed. Questions were sought and answered, and verbal consent provided for the procedure. Anesthesia: 1% lidocaine Procedure Description: Made a cruciate incision at the area of maximal fluctuance in the left latissimus dorsi region/posterior axillary line. Wound was deloculated. Expectorated approximately 3 to 4cc of mostly bloody/purulent material. Wound culture sent. The patient tolerated the procedure well without complications. The patient and/or family, caregivers express understanding. The patient and/or family, caregivers agrees with the plan. Shared decision making: I will have a discussion with the patient and or visitors regarding risk/benefits of further testing or admission. They will be made aware of of the risk/benefits inherent in this decision they will be given the opportunity to voice understanding. Total critical care time today provided was at least 0 minutes. This excludes separately billable procedures. Critical care time (if documented) is secondary to the patient having high probability ofclinically significant/life threatening deterioration in the patient's condition which required my urgent intervention. Impression: 1. Cellulitis 2. Acute abscess 3. Sepsis Dispo: Admit This note was generated with BlackJet dictation software. It may contain incorrect words, spelling, and punctuation that were not noted in review of the chart prior to signing. Lab Data Labs: Laboratory Results - last 24 hr 07/04/25 07/04/25 15:54 16:09 WBC 8.6 RBC 4.36 Hgb 13.7 Hct 40.8 MCV 93.6 MCH 31.4 MCHC 33.6 RDW Std Deviation 50.1 H RDW Coeff of Vinicio 14.6 Plt Count 159 MPV 11.2 Immature Gran % (Auto) 0.600 Neut % (Auto) 79.5 H Lymph % (Auto) 12.6 L Wolfe % (Auto) 6.7 Eos % (Auto) 0.1 Baso % (Auto) 0.5 Absolute Neuts (auto) 6.8 Absolute Lymphs (auto) 1.08 Nucleated RBC % 0 PT 12.8 INR 1.0 APTT 25.6 Sodium 138 Potassium 3.3 Chloride 101 Carbon Dioxide 23.8 Anion Gap 13 BUN 14 Creatinine 0.72 Estim Creat Clear Calc 102.87 Est GFR (MDRD) Non-Af 95 BUN/Creatinine Ratio 19.1 Glucose 110 H Lactic Acid < 1.0 Calcium 8.6 Total Bilirubin 0.40 AST 29 ALT 24 Alkaline Phosphatase 116 H Total Protein 7.4 Albumin 4.2 Globulin 3.1 Albumin/Globulin Ratio 1.4 Urine Color Straw Urine Clarity Clear Urine pH 6.0 Ur Specific Gering 1.015 Urine Protein 15 H Urine Glucose (UA) Normal Urine Ketones Negative Urine Occult Blood 250 H Urine Nitrite Negative Urine Bilirubin Negative Urine Urobilinogen Normal Ur Leukocyte Esterase Negative Urine RBC 5-10 SEEN Urine WBC 0-5 SEEN Ur Squamous Epith Cells 5-10 SEEN Ur Transition Epith Cell 0-5 SEEN Urine Bacteria 0 SEEN Urine Mucus 1+ Radiography Diagnostic Testing: Clinical Impression(s) from Imaging Studies Chest X-Ray 03/02/25 16:10 IMPRESSION: Cardiomegaly with mild congestion. Reading Location: [id number] Discharge Plan Triage Chief Complaint: Bite ED Provider: Emiliano Cisse Dx/Rx/DC Orders Clinical Impression: Cellulitis, Abscess Instructions: Abscess Drainage, Cellulitis Dc Prescriptions: New sulfamethoxazole-trimethoprim [Bactrim DS] 800-160 mg tablet 1 tab PO BID 7 Days Qty: 14 0RF No Action amlodipine 5 mg tablet 5 mg PO DAILY Qty: 90 3RF aspirin 81 mg capsule 81 mg PO DAILY Qty: 90 3RF atorvastatin 10 mg tablet 10 mg PO QHS Qty: 90 3RF levothyroxine 150 mcg tablet 150 mcg PO DAILY Qty: 90 3RF albuterol sulfate 90 mcg/actuation HFA aerosol inhaler 2 puff inhalation Q4H PRN (Reason: shortness of breath or wheezing) prednisone 20 mg tablet 60 mg PO DAILY Qty: 15 0RF prednisone 20 mg tablet See Rx Instructions .ROUTE .COMPLEX Qty: 24 0RF Rx Instructions: 3 tabs p.o. daily x 4 days then 2 tabs p.o. daily x 4 days then 1 tab p.o. daily x 4 days Stand Alone Forms: ED Work / School Excuse Primary Care Provider: Hu Hairston Referrals: Hu Hairston MD [Primary Care Provider] - Activity Restrictions/Additional Instructions: Thank you for trusting us with your care today! Please take antibiotics as prescribed until course is complete. Please take Tylenol (2 pills, 650 mg), ibuprofen (2 pills, 400 mg) every 6 hoursas needed for pain and fever control. Please return to the emergency department if your symptoms change or worsen. Please follow with your primary care physician for further outpatient evaluationand management. Print Language: Ecuadorean Disposition Disposition: Home, Self Care What to do if you have Problems For any increased pain, shortness of breath, bleeding, nausea or vomiting, chestpain, or any unexpected problems, contact your Primary Care Provider. Call [facility] ([phone]) or report tothe closest Emergency Room. Call 911 if necessary. 03/02/25 1831 Cosigner Signature (if applicable): CC: Dr. Hu Hairston MD ~ Signed [facility]07-04-2025 Radiology Diagnostic study note [facility] Imaging Services [address] [place] [address] Chest 1 View (Portable) MR#: [id number] Acct: [id number] Name: BOAZ GOLDSTEIN Rep #: [id number] : 1965 F 59 From: Angelina Stovall MD PCP: Dr. Hu Hairston MD Status: REG E R Study:Chest 1 View (Portable) Date of Exam: 03/02/25 Exam# [id number] Ordering Dr: Feliciano Cisse DO EXAM: XR Chest, 1 View CLINICAL INDICATION: SEPSIS TECHNIQUE: Frontal view of the chest. COMPARISON: No relevant prior studies available. FINDINGS: LUNGS AND PLEURAL SPACES: See below. HEART: Cardiomegaly with mild congestion. MEDIASTINUM: Unremarkable. Normal mediastinal contour. BONES/JOINTS: Unremarkable. No acute fracture. RAD/Chest 1 View (Portable) IMPRESSION: Cardiomegaly with mild congestion. Reading Location: [facility] CC: Dr. Hu Hairston MD; Dr. Emiliano Cisse DO ~ Shipping Supervisor: Signed [facility]07-04-2025 Discharge summary Author Emiliano Cisse [facility] Note Date/Time March 02, 2025 6:31p m [facility] Medical Records Department [address] [place] [address] Emergency Department Summary 03/02/25 MR#: [id number] Acct: [id number] Name: BOAZ GOLDSTEIN Rep #:[id number] : 1965 59 From: Emiliano Payne PCP: Dr. Hu Hairston MD Status:REG E R Location: ED HPI History of Present Illness Chief Complaint: Bite PFSH PFSH Medical History Alcohol use Abscessed tooth Post-menopausal [...] pulmonary disease) 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 Home Medications ?Medication ?Instructions ?Recorded ?Last Taken ?Type amlodipine 5 mg tablet 5 mg PO DAILY #90 tabs 05/0701/26/25 Rx aspirin 81 mg capsule 81 mg PO DAILY #90 caps 04/2001/26/25 Rx atorvastatin 10 mg tablet 10 mg PO QHS #90 tabs 01/25/25 Rx levothyroxine 150 mcg tablet 150 mcg PO DAILY #90 tabs 05/07/22 01/26/25 Rx albuterol sulfate 90 mcg/actuation 2 puff inhalation Q 4H PRN 02/17/24 02/22/24 History aerosol inhaler shortness of breath or wheez ing prednisone 20 mg tablet See Rx Instructions .Route 0 01/26/25 Unknown Rx .COMPLEX #24 tabs prednisone 20 mg tablet 60 mg (3 x 20 mg) PO DAILY # 15 02/11/25 Unknown Rx TABLETS sulfamethoxazole 800 1 tab PO BID 7 days #14 tabs 03/02/25 Unknown Rx mg-trimethoprim 160 mg tablet (Bactrim DS) Allergy/AdvReac Type Severity Reaction Status Date / Time cephalexin monohydrate (From Allergy Hives Verified 03/02/25 15:26 Keflex) latex Allergy Rash Verified 03/02/25 15:26 Penicillins (PCN) Allergy Hives Verified 03/02/25 15:26 Family History Grandfather Kidney disease Heart disease Colon cancer Sister Lung cancer Seizures Mother Cancer Diabetes Daughter Hypertension Thyroid disorder Surgical History Hx of colonoscopy History of cholecystectomy History of delivery Social History Smoking Status: Light Smoker (<10/day) second hand exposure: Yes quit status: not considering quitting alcohol intake: never substance use type: does not use caffeine: Yes what type of physical activity do you participate in: none seatbelt use: always do you feel safe at home: Yes additional social 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 Physical Exam Const Vital Signs: 03/02/25 14:10 03/02/25 15:39 03/02/25 17:13 Temperature 101 F H 99.2 F H Temperature Source Oral Oral Pulse Rate 115 H 108 H Respiratory Rate 20 H 16 Blood Pressure 165/91 H 135/70 H Blood Pressure Mean 115 91 Pulse Ox 99 97 96 Oxygen Delivery Method Room Air Room Air Room Air 03/02/25 18:14 Temperature 99.0 F Temperature Source Pulse Rate 100 Respiratory Rate 20 H Blood Pressure 111/75 Blood Pressure Mean 87 Pulse Ox 98 Oxygen Delivery Method MDM MDM MDM Narrative Medical decision making narrative: HISTORY OF [id number] ILLNESS: Chief complaint: Bite 59-year-old female history of hyperlipidemia, hypertension, laryngeal mass, tobacco abuse and hypothyroidism as well as COPD presents with concern for a wound. She states she noticed that yesterday she thinks it could be a insect bite of some sort. She notes itching today and increased swelling. Denies fever, [place] vomiting. No severe pain in the left lateral mid back. REVIEW OF SYSTEMS: Pertinent positives: Wound, fever Pertinent negatives: Vomiting, chest pain, shortness of breath, cough, urinary complaint PHYSICAL EXAM: Nursing triage notes reviewed, Vital signs reviewed Constitutional: please see [facility] HENT: MMM Eyes: Pupils equal round and reactive to light, Extraocular muscles intact Neck: No stridor, no JVD, full neck ROM Lungs: Clear to auscultation, No wheezing or rales. No increased work of breathing, no conversational dyspnea, no accessory muscle use, no nasal flaring. No respiratory distress noted Heart: Regular rate and rhythm, No murmurs, No rubs and No gallops, 2+ distal pulses (radial, femoral, posterior tibial) in all extremities Abdomen: Soft, there is no tenderness, rigidity, rebound or guarding, no obviousperitoneal signs, no palpable pulsatile abdominal masses, no auscultated abdominal bruit : No CVAT Skin: Approximately 6 x 3 cm area of erythema with a focal area of fluctuance and induration consistent with likely abscess. Performed POCUS ultrasound whichshowed a fluid collection approximately 0.5 cm deep. This area was incised and drained. Please see procedure note. Incision and drainage yielded approximately 3 to 4 cc of mostly bloody/purulent fluid. This wound was cultured. MEDICAL DECISION MAKING: Chief Complaint: please see [facility] External records reviewed: Factors affecting care: As per HPI Social determinants of health: none History obtained from others: Family Consults: Internal medicine (Dr. Jasso) [facility] Narrative: [The patient was initially hypertensive with a blood pressure 165/91, tachycardic with heart rate 115, tachypneic respiratory 20, temperature 101. She saturating 99% on room air. Exam with palpable abscess surrounding cellulitis of the left latissimus dorsi/posterior axillary line I considered the following differential diagnosis: Sepsis, abscess, UTI, pneumonia I obtained a broad lab and imaging workup to further determine if the patient was suffering from a life-threatening etiology. Sepsis protocol initiated. Empiric IV vancomycin given Also treat the patient's fever with a 1 g of Tylenol and 30 mg of IV Toradol ALL IMAGES (IF OBTAINED) HAVE BEEN PERSONALLY REVIEWED AND INTERPRETED BY MYSELF. CBC with no leukocytosis to suggest systemic inflammation, no anemia or thrombocytopenia No coagulopathy BMP without evidence of significant electrolyte abnormalities, no anion gap, no acute kidney injury. LFTs show no evidence of hepatobiliary pathology. Urinalysis shows no evidence of urinary inflammation suggestive of UTI EKG with sinus tachycardia rate of 113, normal axis, normal intervals, no STEMI Tentative plan at this time is to offer admission given multiple SIRS criteria and source of infection concern for sepsis in the setting of abscess. Discussed with hospice Dr. Jasso. He stated she does not meet true sepsis criteria as she is only mildly tachycardic do not feel like need to be admitted. He notes he will come in evaluate the patient and have a shared decision-making discussion with her. After shared dissipating discussion the patient was amenable to discharge home. Repeat heart rate was down to 100. Her pressures remained stable she tachypneic at 20 was afebrile. She was alert and orient x 3 and had capacity to make her medical status and chose to go home with oral antibiotics and lieu of IV antibiotics admission to await cultures. Gave oral doxycycline. Gave strict return precautions. Procedure: Incision and Drainage simple The procedure was performed by myself. Location: Left latissimus dorsi Risks and benefits: Risks, benefits, and alternatives were discussed. Questions were sought and answered, and verbal consent provided for the procedure. Anesthesia: 1% lidocaine Procedure Description: Made a cruciate incision at the area of maximal fluctuance in the left latissimus dorsi region/posterior axillary line. Wound was deloculated. Expectorated approximately 3 to 4 cc of mostly bloody/purulent material. Wound culture sent. The patient tolerated the procedure well without complications. The patient and/or family, caregivers express understanding. The patient and/or family, caregivers agrees with the plan. Shared decision making: I will have a discussion with the patient and or visitors regarding risk/benefits of further testing or admission. They will be made aware of of the risk/benefits inherent in this decision they will be given the opportunity to voice understanding. Total critical care time today provided was at least 0 minutes. This excludes separately billable procedures. Critical care time (if documented) is secondary to the patient having high probability of clinically significant/life threatening deterioration in the patient's condition which required my urgent intervention. Impression: 1. Cellulitis 2. Acute abscess 3. Sepsis Dispo: Admit This note was generated with BlackJet dictation software. It may contain incorrect words, spelling, and punctuation that were not noted in review of the chart prior to signing. Lab Data Labs: Laboratory Results - last 24 hr 03/02/25 03/02/25 15:54 16:09 WBC 8.6 RBC 4.36 Hgb 13.7 Hct 40.8 MCV 93.6 MCH 31.4 MCHC 33.6 RDW Std Deviation 50.1 H RDW Coeff of Vinicio 14.6 Plt Count 159 MPV 11.2 Immature Gran % (Auto) 0.600 Neut % (Auto) 79.5 H Lymph % (Auto) 12.6 L Wolfe % (Auto) 6.7 Eos % (Auto) 0.1 Baso % (Auto) 0.5 Absolute Neuts (auto) 6.8 Absolute Lymphs (auto) 1.08 Nucleated RBC % 0 PT 12.8 INR 1.0 APTT 25.6 Sodium 138 Potassium 3.3 Chloride 101 Carbon Dioxide 23.8 Anion Gap 13 BUN 14 Creatinine 0.72 Estim Creat Clear Calc 102.87 Est GFR (MDRD) Non-Af 95 BUN/Creatinine Ratio 19.1 Glucose 110 H Lactic Acid < 1.0 Calcium 8.6 Total Bilirubin 0.40 AST 29 ALT 24 Alkaline Phosphatase 116 H Total Protein 7.4 Albumin 4.2 Globulin 3.1 Albumin/Globulin Ratio 1.4 Urine Color Straw Urine Clarity Clear Urine pH 6.0 Ur Specific Gering 1.015 Urine Protein 15 H Urine Glucose (UA) Normal Urine Ketones Negative Urine Occult Blood 250 H Urine Nitrite Negative Urine Bilirubin Negative Urine Urobilinogen Normal Ur Leukocyte Esterase Negative Urine RBC 5-10 SEEN Urine WBC 0-5 SEEN Ur Squamous Epith Cells 5-10 SEEN Ur Transition Epith Cell 0-5 SEEN Urine Bacteria 0 SEEN Urine Mucus 1+ Radiography Diagnostic Testing: Clinical Impression(s) from Imaging Studies Chest X-Ray 03/02/25 16:10 IMPRESSION: Cardiomegaly with mild congestion. Reading Location: [facility] Discharge Plan Triage Chief Complaint: Bite ED Provider: Emiliano Cisse Dx/Rx/DC Orders Clinical Impression: Cellulitis, Abscess Instructions: Abscess Drainage, Cellulitis Dc Prescriptions: New sulfamethoxazole-trimethoprim [Bactrim DS] 800-160 mg tablet 1 tab PO BID 7 Days Qty: 14 0RF No Action amlodipine 5 mg tablet 5 mg PO DAILY Qty: 90 3RF aspirin 81 mg capsule 81 mg PO DAILY Qty: 90 3RF atorvastatin 10 mg tablet 10 mg PO QHS Qty: 90 3RF levothyroxine 150 mcg tablet 150 mcg PO DAILY Qty: 90 3RF albuterol sulfate 90 mcg/actuation HFA aerosol inhaler 2 puff inhalation Q4H PRN (Reason: shortness of breath or wheezing) prednisone 20 mg tablet 60 mg PO DAILY Qty: 15 0RF prednisone 20 mg tablet See Rx Instructions .ROUTE .COMPLEX Qty: 24 0RF Rx Instructions: 3 tabs p.o. daily x 4 days then 2 tabs p.o. daily x 4 days then 1 tab p.o. daily x 4 days Stand Alone Forms: ED Work / School Excuse Primary Care Provider: Hu Hairston Referrals: Hu Hairston MD [Primary Care Provider] - Activity Restrictions/Additional Instructions: Thank you for trusting us with your care today! Please take antibiotics as prescribed until course is complete. Please take Tylenol (2 pills, 650 mg), ibuprofen (2 pills, 400 mg) every 6 hoursas needed for pain and fever control. Please return to the emergency department if your symptoms change or worsen. Please follow with your primary care physician for further outpatient evaluationand management. Print Language: Ecuadorean Disposition Disposition: Home, Self Care What to do if you have Problems For any increased pain, shortness of breath, bleeding, nausea or vomiting, chestpain, or any unexpected problems, contact your Primary Care Provider. Call [facility] ([phone]) or report to the closest Emergency Room. Call 911 if necessary. 03/02/25 1831 <Electronically signed by Emiliano Cisse DO> Cosigner Signature (if applicable): CC: Dr. Hu Hairston MD ~ Signed [facility] Work Phone: [phone]) 738-652406-15-2025 Radiology Diagnostic study note [facility] Imaging Services [address] [place] [address] Chest PA and Lateral MR#: [id number] Acct: [id number] Name: BOAZ GOLDSTEIN Rep #: [id number] : 1965 F 59 From: Alexander Vergara DO PCP: Dr. Hu Hairston MD Status: REG E R Study:Chest PA and Lateral Date of Exam: 02/11/25 Exam# [id number] Ordering Dr: Esa Thacker DO PROCEDURE: CHEST PA AND LATERAL 02/11/2025 REASON FOR EXAM: DYSPNEA TECHNIQUE: CHEST PA AND LATERAL COMPARISON: 01/26/2025 FINDINGS: Cardiomediastinal silhouette is within normal limits. Mild symmetric bibasilar interstitial prominence. No focal consolidation, pleural effusion or sizable pneumothorax. RAD/Chest PA and Lateral IMPRESSION: No focal airspace abnormality. Reading Location: [place] CC: Dr. Esa Thacker DO; Dr. Hu Hairston MD ~ Shipping Supervisor: Signed [facility]05-30-2025 Radiology Diagnostic study note [facility] Imaging Services [address] [place] [id number] Chest 1 View (Portable) MR#: [id number] Acct: [id number] Name: BOAZ GOLDSTEIN Rep #: [id number] : 1965 F 59 From: [place] Self MD PCP: Dr. Hu Hairston MD Status: REG E R Study:Chest 1 View (Portable) Date of Exam: 01/26/25 Exam# [id number] Ordering Dr: Aria Lewis DO PROCEDURE: CHEST [...] (Portable) IMPRESSION: No Acute Findings. [facility] CC: Dr. Carlito Lewis DO; Dr. Hu Hairston MD ~ Shipping Supervisor: Tremaine [facility]11-29-2024 Hospital Discharge instructions Patient Education 07/28/2024 08:50:54 [...] swollen, warm, and sore. The reddened areas havea visible border. An open sore may leak [...] or higher after 2 days on antibiotics [id number] [employer]. [address] [place] [address], [place] [address]. All rights reserved. This information is not intended as a substitute for professional medical care. Always follow yourhealthcare professional's instructions. Follow Up Care 07/28/2024 08:08:16 With:ZENAIDA RIVAS MD Address: [facility] [address] [address] When:2-4 days [facility] 11-29-2024 Note Discharge Instructions Thank you for allowing [facility] to assist you with your healthcare needs. The following is importantdischarge information regarding your hospital visit. Diagnosis from Today's Visit Preseptal cellulitis of left eye What to Do Next Instructions from Your Care Team No qualifying data available. Post Acute Orders No qualifying data available. You Need to Schedule the Following Appointments Follow Up with ZENAIDA RIVAS MD When:Within 2-4 days Where:[address] [address] Allergies Keflex hives Latex penicillin hives Medications Please ask your primary doctor or pharmacist before taking any other medication not listed, including over the counter drugs, herbal medications, vitamins and or supplements as they may interact withyour home medications. What How Much When Why [...] swollen, warm, and sore. The reddened areas havea visible border. An open sore may leak [...] or higher after 2 days on antibiotics [id number] [employer]. [address] [place] [address]. All rights reserved. This information is not intended as a substitute for professional medical care. Always follow yourhealthcare professional's instructions. Additional Information VACCINATE! IT SAVES LIVES! Members of the community who have not yet received the COVID-19 vaccine and would like to receive it can visit one of [facility] vaccine clinics. There are many vaccine clinic locations within the [facility]. For locations and available times, please visit www.gettheshot.coronavirus.[place].gov/. It is important to note that some COVID mobile vaccine clinics are held outdoors and may be canceled in rainy or stormy conditions. To learn more about pediatric vaccinations (ages 5-11), we invite you to visit the [facility] webpage. [email or web address]/[email or web address]-[email or web address] stions.htmlTo learn more about the COVID-19 vaccine, we invite you to visit the CDC website for a list of frequently asked questions. https://www.cdc.gov/coronavirus/2019-ncov/vaccines/faq.html [facility] [employer] Patient Portal Access Instructions: Stay connected with your healthcare team and access your personal medical information anytime with the [employer] Patient Portal. If you would like a full copy of your medical records please contact the [facility] Medical Records Department Wednesday through Wednesday between 8a.m. and 4:30p.m. Please follow the directions below to access the portal: 1.Access the email account you provided upon registration to the [facility] [address].2.Look for an invitation email from [facility].3.Open the email and access the invitation link: Accept Invitation to [facility] [employer]4.Fill in the required santana to create your account. Sign into [email or web address] with your username and password that you [...] you will allow to register on the [employer] Patient Portal for access to your information. You can also access the [employer] Patient Portal on the [employer]. Simply click on "Health Records" under "HealthData" and then click on the [employer] logo. HOW TO SAFELY DISPOSE OF PRESCRIPTION MEDICATIONS Please use one of the following methods to safely dispose of your unused medications. 1.Use a drug disposal kit: the drug disposal pouch allows you to safely discard your old and unuseddrugs. Ask your nurse to give you one when you are discharged.2.Visit a local take-back location: Many local pharmacies and police departments have programs that collect old and unwanted prescriptiondrugs. Call your local pharmacy or go to http://[email or web address]/8E5Iw0r to find one close to you.3.Make use of household items: Use cat litter or old coffee grounds to dispose medications if other options arenot available. Mix your drugs with these household products, seal them in an airtight container andthrow it into the garbage. Call [facility]: [phone] to be sure your drugs can be [...] drowsiness, such as benzodiazepines, also known as benzos,including diazepam and alprazolam, muscle relaxants or sleep aids. Never sell or share prescriptionopioids. This is illegal. Store opioids in a secure place and out of reach of others (including children, family, friends and visitors). The last page(s) of this document has been signed and retained as a CHART COPY Signatures Patient Education Materials Cellulitis Skin Infection Medication Leaflets My discharge plan and instructions have been reviewed and explained to me and IJUHI TERESA M understand my current condition and have read and understand these discharge instructions. I have received a written copy of the plan/instructions. If I have questions, I am aware that I should contact my doctor. Patient/Openstack Developer Signature: Date/Time: Relationship to Patient: Witness Name/Signature: Date/Time: [facility] [id number] NoteHNO ID: [id number] Author: JAMAL LLANOS APRN.PROJECT ESTIMATOR Service: ? Author Type: Nurse Practitioner Type: [...] Sister Coronary Artery Disease Father had 3 TX's Diabetes Sister Thyroid Child daughter Social History [...] or tenderness. No pa (more content not included)...[facility]11-23-2024 History of Present illness Narrative* Jamal Llanos, KIM.PROJECT ESTIMATOR - 07/22/2024 2:22 PM EST Subjective HPI Nontoxic-appearing female presents urgent care [...] by mouth once daily. (Patient not taking: Reportedon 07/09/2024) levothyroxine (SYNTHROID) 137 mcg tablet TAKE [...] Sister Coronary Artery Disease Father had 3 TX's Diabetes Sister Thyroid Child daughter Social History [...] Plan of care was discussed with patient. P atient verbalizes understanding and agrees to plan of care. This note was generated using BlackJet software. It may contain errors in wording, punctuation, or spelling. Jamal Llanos APRN.JAYDA documented in this encounterC[facility] NoteHNO ID: [id number] Author: JAMAL LLANOS APRN.JAYDA Service: ? Author Type: Nurse Practitioner Type: [...] Sister Coronary Artery Disease Father had 3 TX's Diabetes Sister Thyroid Child daughter Social History [...] place, and time. ASSESSMENT/PLAN: (more content not included)...[facility] 07-09-2024 History of Present illness Narrative* Jamal Llanos APRN.PROJECT ESTIMATOR - 07/09/2024 2:38 PM EST Subjective HPI Nontoxic-appearing female presents urgent care [...] by mouth once daily. (Patient not taking: Reportedon 07/09/2024) levothyroxine (SYNTHROID) 137 mcg tablet TAKE [...] Sister Coronary Artery Disease Father had 3 TX's Diabetes Sister Thyroid Child daughter Social History [...] and time. ASSESSMENT/PLAN: 1. COPD with exacerbation (HCC) - ICD9: 491.21, ICD10: J44.1 Diagnosed with COPD exacerbation. Placed on doxycycline and prednisone. Follow- up with PCP 2 days reevaluation. Patient was educated on supportive therapies. Patient was instructed to immediately proceed to emergency room for any new, worsening, or symptoms lasting longer than anticipated. The patient's clinical presentation is otherwise unremarkable at this time. Based on exam and clinical finding, the patient is stable for discharge. Plan of care was discussed with patient. Patient verbalizesunderstanding and agrees to plan of care. This note was generated using BlackJet software. It may contain errors in wording, punctuation, or spelling. Jamal Llanos APRN.PROJECT ESTIMATOR documented in this encounterC[facility]10-09-2023 NotePap Smear Specimen AdequacyOct2022 3:15pmComment.Satisfactory for evaluation. Endocervical and/or squamous metaplasticcells (endocervical component)are present.[facility] INTERFACED A#[id number] State Harding HospitalComharper [facility] hospital on above: Satisfactory for evaluation. Endocervical and/or squamous metaplasticcells (endocervical component)are present.06-07-2023 NotePap Smear Specimen Adequacy June 07, 2023 2:15pmComment.Satisfactory for evaluation. Endocervical and/or squamous metaplasticcells (endocervical component)are present.[facility] INTERFACED A#[id number] State Harding HospitalComment on above:Satisfactory for evaluation. Endocervical and/or squamous metaplasticcells (endocervical component)are present.11-14-[address] Pan [facility] November 14, 2022 5:05pm Note Date/Time November 14, 2022 3:5 1pm [facility] Medical Records Department [address] [place] [address] Emergency Department Summary 11/14/22 MR#: [id number] Acct: [id number] Name: BOAZ GOLDSTEIN Rep #:[id number] : [...] swelling, no DVT or PE risk factors. [facility] Medical History Acid reflux Anxiety [...] % (Auto) 64.7 Lymph % (Auto) 25.3 Wolfe % (Auto) 7.2 Eos % (Auto) 2.1 [...] 16:22 EDT Reading Location ID and State: [facility] / [place] , Service support , Discharge Plan Triage [...] then 250 mg for 4 days (days 2- 5) No Action pantoprazole 40 mg tablet,delayed release [...] your Primary Care Provider. Call [facility] ([phone]) or report to the closest Emergency Room. Call 911 if necessary. 11/14/225 <Electronically signed by Luis Miguel Pan MD> Cosigner Signature (if applicable): CC: Dr. Zuly Cantor MD ~ Signed [facility] Work Phone: [phone] 391-596303-18-2023 Hospital Discharge instructions Additional Instructions Stop smoking. Take medication as directed. Use your albuterol inhaler 2 puffs every 4-6 hours as needed for shortness of breath.[facility] Work Phone: Discharge summary Author Patti Cornejo [facility] Note Date/Time March 05, 2025 4:18p m [facility] Medical Records Department [address] [place] [id number] Discharge Summary 03/05/25 1613 MR#: [id number] Acct: [id number] Name: BOAZ GOLDSTEIN Rep #:[id number] : 1965 59 From: Patti Cornejo MD PCP: Dr. Hu Hairston MD Status:ADM I N Location: [facility] [id number] Providers Date of Admission: 03/04/25 Date of Discharge: 03/05/25 Primary Care Physician: Dr. Hu Hairston MD Consultations 03/04/25 09:21 Consult: General Surgery Routine Consulting Provider: Surendra De Luna Reason for Consult: left posterolateral chest wall abscess EMERGENT Consult: No Notified: Yes Date Notified: 03/04/25 Time Notified: 09:21 Method of Notification: Verbal 03/04/25 14:50 Consult: Infectious Disease Routine Consulting Provider: Clara Vega Reason for Consult: left upper back abscess, allergic to PCN AND cephalo. LOWPLT On Vanco,CLI EMERGENT Consult: No Notified: Yes Date Notified: 03/04/25 Time Notified: 14:50 Method of Notification: Text Reason For Visit: LEFT LATERAL LATISSIMUS DORSI MUSCLE Diagnosis Discharge Diagnosis (1) Abscess: Status: Acute Code(s): L02.91 - Cutaneous abscess, unspecified (2) Cellulitis: Status: Acute Code(s): L03.90 - Cellulitis, unspecified Qualifiers: Site of cellulitis: trunk Site of cellulitis of trunk: unspecified site Qualified Code(s): L03.319 - Cellulitis of trunk, unspecified Plan: DISCHARGE DIAGNOSES: #1. Left posterior lateral chest wall abscess with surrounding cellulitis possibly secondary to recent insect bite but uncertain, unclear organism #2. Thrombocytopenia complicated by petechial rash in left lower extremity, unclear etiology #3. Hypokalemia, resolved #4. Normocytic anemia, new in chronicity, likely related with #1 intervention but unclear etiology #5. Hypothyroidism with abnormal TSH, subclinical #6. Chronic COPD #7. Anxiety and depression #8. Hypertension #9. Hyperlipidemia #10. Tobacco Abuse #11. Obesity Medications at Discharge Home Medications amlodipine 5 mg tablet 5 mg PO DAILY #90 tabs 05/07/22 atorvastatin 10 mg tablet 10 mg PO QHS #90 tabs 05/07/22 albuterol sulfate 90 mcg/actuation aerosol inhaler 2 puff inhalation Q4H PRN shortness of breath or wheezing 02/17/24 aspirin 81 mg chewable tablet 1 tab PO DAILY 03/03/25 levothyroxine 137 mcg tablet 137 mcg PO DAILY 03/04/25 cefdinir 300 mg capsule 300 mg PO BID 7 days #14 caps 03/05/25 oxycodone 5 mg tablet 5 mg PO Q6H PRN PRN Pain Score 6-10 5 days #20 tabs 03/05/25 Hospital Course Operations - (OR 03/04/25 Incision and drainage of left upper back abscess with local anesthetic per Dr. De Luna.) Procedures None Summary of Care Provided Minutes Spent on Discharge: 35 Hospital Course: The patient is a 59 y/o F w/ PMHx: COPD, Tobacco use, HTN, HLD, Obesity, Anxietyand Depression, Hypothyroidism who presented to [facility] ED on 03/04/2025 with history of recent bug bites to the left flank seen in the EDthe day prior for an I&D with noted a subcutaneous abscess on the left posteriorlateral thorax however she had onset of fever prompting return and admission forevaluation. Initial CT chest with initially no underlying fluid density or abscess formation however examination concerning for subcutaneous abscess/phlegmon, general surgery consulted and patient status post 03/04/25 I&D of the left upper back abscess under local anesthetic, maintained on IV vancomycin, pending wound culture, general surgery following and awaiting infectious disease evaluation. Per 03/05/2025 surgery evaluation with recommendation to defer packing, allowance of showering but no submersion, plan follow-up outpatient with general surgery in 2 weeks following discharge. 03/04/2025 and repeat I&D culture 03/04/2025 pending. Infectious disease evaluation 03/05/25 with recommendation given improvement for transition to cefdinir 300 mg p.o. twice daily for an additional 5 to 7 days. Patient with thrombocytopenia complicated by petechial rash in the left lower extremity of unclear etiology, ED presentation 03/03/25 platelet count 126, previous to this 11/2013 platelet count 144, 01/2025 platelet count 151, has seemed to vacillate, unclear exact etiology, lower suspicion Bactrim etiology as patient had started Bactrim following the onset of this and not previous to this, initially been on Lovenox which was discontinued and patient cautiously continued on baby aspirin with 03/05/25 platelet count 119. Admission initial presentation potassium 3.1, potassium supplementation administered, 03/05/25 BMP with potassium 3.7. Admission hemoglobin 12.5, MCV 92.8, status post interventions above as noted, repeat 03/05/25 hemoglobin 11.7, MCV 94.1. Upon presentation TSH obtained and noted to be 10.4 however free T4 normal range at 1.10, given acute setting felt subclinical and recommended follow-up outpatient for repeat assessment. 03/05/2025 patient clinically improved with no further drainage with no fevers andimproved labs therefore given patient clinically improved quicker than expected on antibiotic therapy status post I&D with dressing changes and resolved electrolytes as well as stable platelets infectious disease felt appropriate fordischarge to home. Discussed also with general surgery and they agreed with herdischarge as well. Patient discharged on short course of narcotic therapy in addition to additional course per infectious disease recommendation of cefdinir 300 mg p.o. twice daily would recommend follow-up in 2 weeks with general surgery with dressing changes/site care per their recommendations in addition tofollow-up with PCP within 1 to 2 weeks. Recommended follow-up CBC, BMP as well as thyroid function studies outpatient with PCP. Weight / BMI Weight Weight: 237 lb Body Mass Index (BMI) 37.0 ABG / Lab / Microbiology Data 03/05/25 04:29 03/05/25 04:29 Laboratory: Laboratory Results - last 24 hr 03/04/25 22:27: Vancomycin Trough 13.4 03/05/25 04:29: WBC 5.9, RBC 3.74 L, Hgb 11.7 L, Hct 35.2 L, MCV 94.1, MCH 31.3,MCHC 33.2, RDW Std Deviation 52.0 H, RDW Coeff of Vinicio 14.9 H, Plt Count 119 L, MPV 12.0, Immature Gran % (Auto) 0.500, Neut % (Auto) 61.1, Lymph % (Auto) 26.9,Wolfe % (Auto) 7.6, Eos % (Auto) 3.2, Baso % (Auto) 0.7, Absolute Neuts (auto) 3.6, Absolute Lymphs (auto) 1.59, Nucleated RBC % 0, Dohle Bodies 1+, Platelet Estimate SLT DEC, Polychromasia 1+, Anisocytosis 1+, Ovalocytes 1+, Sodium 139, Potassium 3.7, Chloride 107, Carbon Dioxide 22.4, Anion Gap 9, BUN 6, Creatinine0.51 L, Estim Creat Clear Calc 146.22, Est GFR (MDRD) Non-Af 106, BUN/CreatinineRatio 10.9, Glucose 123 H, Calcium 8.2, TSH 10.400 H, Free T4 1.10 Microbiology: Microbiology 03/04/25 14:20 Incision/Surgical Site Gram Stain - Final 03/04/25 10:40 Wound Drainage - Back Gram Stain - Final D/C Instructions DC O2, CPAP, BIPAP Needs Home O2 Discharge instructions: No Meaningful Use Info Meaningful Use Meaningful Use Diagnoses (Choose all that apply): None applicable Ischemic Stroke Statin Dosing Therapy Reference: STATIN DOSE THERAPY REFERENCE: * Patients > 75 years receive moderate or high dose statin therapy. * Patients 75 years or YOUNGER should receive HIGH intensity statin dose unless contraindicated. You will be required to document reason for non-treatment if statin daily dose does not meet guidelines. HIGH DOSE STATIN THERAPY DAILY Atorvastatin > than or = to 40 mg Rosuvastatin > than or = to 20 mg Amlodipine + Atorvastatin > than or = to 2.5/40 mg Ezetimibe + Simvastatin 10/80 mg Simvastatin 80mg Discharge Plan Admission Admit Date/Time: 03/04/25 00:43 Primary Reason for Your Visit: Left posterior lateral chest wall abscess with surrounding cellulitis Attending Provider: Patti Cornejo Primary Care Provider: Hu Hairston Consulting Providers: Dick Perez; Surendra De Luna; Clara Vega; Benny Mejia Instructions Patient Instructions: Cellulitis, Abscess Drainage, ED Abscess Incision And ... Additional Instructions / Restrictions: ADDITIONAL INSTRUCTIONS: #1. Left posterior lateral chest wall abscess with surrounding cellulitis, uncertain organism: --Initial CT chest with initially no underlying fluid density or abscess formation however examination concerning for subcutaneous abscess/phlegmon, general surgery consulted, status post 03/04/25 I&D of the left upper back abscessunder local anesthetic. --Treated w/ IV vancomycin pending wound culture; however 03/05/25 ID evaluation and given improvement recommended transition to cefdinir 300 mg twice daily for an additional 7 day course. --General L lateral chest care per Surgery: Defer packing, allowance of showering but no submersion in water, plan follow-up outpatient with general surgery in [address] May place dry dressing daily and as needed. --Short course of oral pain regimen rx at discharge but recommend transition to tylenol and ibuprofen once able and avoidance for further narcotics once pain improving. #2. Thrombocytopenia complicated by petechial rash in left lower extremity: --Initially had been on lovenox but discontinued, please have repeat complete blood count (CBC) with primary care at follow-up. #3. Hypokalemia: --Admission Potassium 3.1, supplementation administered and corrected, pelase have repeat basic metabolic panel at follow-up with primary care physician. #4. Normocytic anemia, new in chronicity, likely related with #1 intervention: --Admission hemoglobin 12.5, MCV 92.8, status post interventions above as noted,repeat 03/05/25 hemoglobin 11.7, MCV 94.1, encourage continued evaluation and repeat CBC evaluation outpatient. #5. Hypothyroidism with abnormal TSH: --Presentation TSH 10.4 however free T4 normal range with 1.10, given the acute setting recommend repeat thyroid function studies outpatient and alteration in medication at that time if appropriate. Discharge Orders/Prescriptions Prescriptions: New oxycodone 5 mg Tablet 5 mg PO Q6H PRN PRN (Reason: Pain Score 6-10) 5 Days Qty: 20 0RF cefdinir 300 mg capsule 300 mg PO BID 7 Days Qty: 14 0RF Continued amlodipine 5 mg tablet 5 mg PO DAILY Qty: 90 3RF atorvastatin 10 mg tablet 10 mg PO QHS Qty: 90 3RF albuterol sulfate 90 mcg/actuation HFA aerosol inhaler 2 puff inhalation Q4H PRN (Reason: shortness of breath or wheezing) aspirin 81 mg tablet,chewable 1 tab PO DAILY levothyroxine 137 mcg tablet 137 mcg PO DAILY Referrals / Follow Up: Surendra De Luna MD [Med Staff - Active Staff] - (Please follow-up in 2 weeks perSurgery request. Call office for earlier evaluation in concerns arise.) Hu Hairston MD [Primary Care Provider] - (Follow-up in 1-2 weeks for re-evaluation.) Disposition Disposition (needs filled in before D/C Order can be placed): Home, Self Care Charges/Coding Visit Charges Inpatient E&M: 53890 Disch Hosp >30min 03/05/25 1618 <Electronically signed by Patti Cornejo MD> Cosigner Signature (if applicable): CC: Dr. Patti Cornejo MD; Dr. Hu Hairston MD~ Signed [facility] Work Phone: Evaluation + Plan note No data available for this section [facility] Evaluation noteNo assessment information available [facility] Work Phone: Evaluation note* Diagnosis COPD with exacerbation (HCC)- Primary Obstructive chronic bronchitis with exacerbation documented [facility] encounter [facility] Diagnosis Red eye- Primary Redness or discharge of eye documented in this encounter [facility]* Diagnosis Onset Date Resolution Status Admit Date Cellulitis acute March 04, 2025 12:43am Hypokalemia acute March 04 12:43am Obesity (BMI 30-39.9) acute Feb 12:43am Thrombocytopenia acute February 12:43am Tobacco abuse chronic March 04, 12:43am [facility] Work Phone: Hospital Discharge instructions No data available for this section [facility] Hospital Discharge instructionsAdditional Instructions Thank you for trusting us with your care today! Please take antibiotics as prescribed until course is complete. Please take Tylenol (2 pills, 650 mg), ibuprofen (2 pills, 400 mg) every 6 hours as needed for pain and fever control. Please return to the emergency department if your symptoms change or worsen. Please follow with your primary care physician for further outpatient evaluation and management.[facility] Work Phone: Progress note No data available for this section [facility] Reason for referral (narrative)No reason for referral information availableWHolmes County [facility] Work Phone: Chief Complaint and Reason for Visit Chief Complaint NICOTINE DEPENDENCE NICOTINE DEPENDENCE general illness Chief Complaint SOB Chief Complaint SCREENING Chief Complaint Admit Date sob January 26, 2025 9:58a m Chief Complaint Admit Date sob January 26, 2025 9:58a m sob February 11, 2025 5:55 pm Chief Complaint Admit Date sob January 26, 2025 9:58a m sob February 11, 2025 5:55 pm bite March 02, 2025 2:10p m Chief Complaint Admit Date sob January 26, 2025 9:58a m sob February 11, 2025 5:55 pm bite March 02, 2025 2:10p m LEFT LATERAL LATISSIMUS DORSI MUSCLE Feb 12:43am Reason for Visit Admit Date Cellulitis March 04, 2025 12:43 am Hypokalemia March 04, 2025 12:43 am Obesity (BMI 30-39.9) March 04, 2025 12: 43am Thrombocytopenia March 04, 2025 12:43 am Tobacco abuse March 04, 2025 12:43 am Chief Complaint Admit Date sob January 26, 2025 9:58a m sob February 11, 2025 5:55 pm bite March 02, 2025 2:10p m LEFT LATERAL LATISSIMUS DORSI MUSCLE Feb 12:43am LEFT LATERAL LATISSIMUS DORSI MUSCLE Feb 2:40pm LEFT LATERAL LATISSIMUS DORSI MUSCLE Feb 7:14am LEFT LATERAL LATISSIMUS DORSI MUSCLE Feb 8:44am Reason for Visit Admit Date Abscess March 04, 2025 12:43 am Cellulitis March 04, 2025 12:43 am Hypokalemia March 04, 2025 12:43 am Obesity (BMI 30-39.9) March 04, 2025 12: 43am Thrombocytopenia March 04, 2025 12:43 am Tobacco abuse March 04, 2025 12:43 am Chief Complaint Admit Date sob January 26, 2025 9:58a m sob February 11, 2025 5:55 pm bite March 02, 2025 2:10p m LEFT LATERAL LATISSIMUS DORSI MUSCLE Feb 12:43am LEFT LATERAL LATISSIMUS DORSI MUSCLE Feb 2:40pm LEFT LATERAL LATISSIMUS DORSI MUSCLE Feb 7:14am LEFT LATERAL LATISSIMUS DORSI MUSCLE Feb 8:44am sob March 16, 2025 3:33 pm Reason for Visit Admit Date Abscess March 04, 2025 12:43 am Cellulitis March 04, 2025 12:43 am Obesity (BMI 30-39.9) March 04, 2025 12: 43am Thrombocytopenia March 04, 2025 12:43 am Tobacco abuse March 04, 2025 12:43 am Hypokalemia March 04, 2025 12:43 am Family History No Family History Records Found [...] No November 12, 2021 4:01am Power of Fitness Leader No November 12 4:01am Advance Directive Response Recorded Date/ Time Advance Directives No February 16 3:46pm Living Will No November 14, 2022 3:30pm Power of Fitness Leader No November 14 3:30pm Advance Directive Response Recorded Date/ Time Advance Directives No February 16 2:46pm Living Will No November 14, 2022 2:30pm Power of Fitness Leader No November 14 2:30pm Advance Directive Response Recorded Date/ Time Do you have a Healthcare Power of Fitness Leader? No January 26, 2025 11:09am Advance Directives No February 16 3:46pm Advance Directive Response Recorded Date/ Time Do you have a Healthcare Power of Fitness Leader? No February 11, 2025 5:56pm Do you have a Healthcare Power of Fitness Leader? No January 26, 2025 11:09am Advance Directives No February 16 3:46pm Advance Directive Response Recorded Date/ Time Do you have a Healthcare Power of Fitness Leader? No February 11, 2025 5:56pm Do you have a Healthcare Power of Fitness Leader? No January 26, 2025 11:09am Do you have a Healthcare Power of Fitness Leader? No March 02, 2025 3:26pm Advance Directives No February 16 3:46pm Advance Directive Response Recorded Date/ Time Do you have a Healthcare Power of Fitness Leader? No February 11, 2025 5:56pm Do you have a Healthcare Power of Fitness Leader? No January 26, 2025 11:09am Do you have a Healthcare Power of Fitness Leader? No March 02, 2025 3:26pm Do you have a Healthcare Power of Fitness Leader? No March 03, 2025 9:49pm Advance Directives No February 16 3:46pm Advance Directive Response Recorded Date/ Time Do you have a Healthcare Power of Fitness Leader? No February 11, 2025 5:56pm Do you have a Healthcare Power of Fitness Leader? No January 26, 2025 11:09am Do you have a Healthcare Power of Fitness Leader? No March 02, 2025 3:26pm Do you have a Healthcare Power of Fitness Leader? No March 04, 2025 1:43am Advance Directives No February 16 3:46pm Advance Directive Response Recorded Date/ Time Do you have a Healthcare Power of Fitness Leader? No February 11, 2025 5:56pm Do you have a Healthcare Power of Fitness Leader? No January 26, 2025 11:09am Do you have a Healthcare Power of Fitness Leader? No March 02, 2025 3:26pm Do you have a Healthcare Power of Fitness Leader? No March 04, 2025 1:43am Do you have a Healthcare Power of Fitness Leader? No March 16, 2025 3:42pm Advance Directives No February 16 3:46pm Summary [...] Active Member Role Status Dates Dr. Hu Hairston MD Family Provider Active Dr. Zuly Cantor MD Primary Care Provider Active Team Status: Inactive Member Role Status Dates Dr. Zuly Cantor MD Primary Care Provider Active Luis Miguel Pan MD Emergency Provider Active Team Status: Active Member Role Status Dates Dr. Hu Hairston MD Family Provider Active Dr. Hu Hairston MD Primary Care Provider Active Team Status: Inactive Member Role Status Dates Dr. Hu Hairston MD Primary Care Provider, Attending Provider Active Team Status: Inactive Member Role Status Dates Dr. 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 [facility] [address] [place], [place] [id number] PCP - General Family Medicine 09/22/21 [employer] Relationship Specialty Start Date End Date Hu Hairston MD [address] [facility] [address] [place], [place] [id number] PCP - General Family Medicine 09/22/21 Team Status: Active Member Role Status Dates Dr. Hu Hairston MD Primary Care Provider Active Team Status: Inactive Member Role Status Dates Dr. Hu Hairston MD Primary Care Provider Active Start: January 26, 2025 End: January 26, 2025 Dr. Carlito Lewis DO Emergency Provider Active Start: January 26, 2025 End: January 26, 2025 Team Status: Inactive Member Role Status Dates Dr. Hu Hairston MD Primary Care Provider Active Start: January 26, 2025 End: January 26, 2025 Dr. Carlito Lewis DO Attending Provider Active Start: January 26, 2025 End: January 26, 2025 Dr. Carlito Lewis DO Emergency Provider Active Start: January 26, 2025 End: January 26, 2025 Team Status: Inactive Member Role Status Dates Dr. Hu Hairston MD Primary Care Provider Active Start: February 11, 2025 End: February 11, 2025 Dr. Esa Thacker DO Emergency Provider Active Start: February 11, 2025 End: February 11, 2025 Team Status: Active Member Role/Relationship Status Dates Dr. Hu Hairston MD Primary Care Provider Active Team Status: Inactive Member Role/Relationship Status Dates Dr. Hu Hairston MD Primary Care Provider Active Start: January 26, 2025 End: January 26, 2025 Dr. Carlito Lewis DO Attending Provider Active Start: January 26, 2025 End: January 26, 2025 Dr. Carlito Lewis DO Emergency Provider Active Start: January 26, 2025 End: January 26, 2025 Team Status: Inactive Member Role/Relationship Status Dates Dr. Hu Hairston MD Primary Care Provider Active Start: February 11, 2025 End: February 11, 2025 Dr. Esa Thacker DO Attending Provider Active Start: February 11, 2025 End: February 11, 2025 Dr. Esa Thacker DO Emergency Provider Active Start: February 11, 2025 End: February 11, 2025 Team Status: Inactive Member Role/Relationship Status Dates Dr. Hu Hairston MD Primary Care Provider Active Start: March 02, 2025 End: March 02, 2025 Dr. Emiliano Cisse DO Emergency Provider Active Start: March 02, 2025 End: March 02, 2025 Team Status: Active Member Role/Relationship Status Dates Dr. Hu Hairston MD Primary Care Provider Active Start: March 04, 2025 Dr. Emiliano Cisse DO Emergency Provider Active Start: March 04, 2025 Dr. Dick Perez DO Admit Provider Active Start: March 04, 2025 Dr. Dick Perez DO Attending Provider Active Start: March 04, 2025 Team Status: Inactive Member Role/Relationship Status Dates Dr. Hu Hairston MD Primary Care Provider Active Start: March 04, 2025 End: March 05, 2025 Dr. Emiliano Cisse DO Emergency Provider Active Start: March 04, 2025 End: March 05, 2025 Dr. Dick Perez DO Admit Provider Active Start: March 04, 2025 End: March 05, 2025 Dr. Dick Perez DO Other Provider Active Start: March 04, 2025 End: March 05, 2025 Dr. Surendra De Luna MD Other Provider Active Sta rt: March 04, 2025 End: March 05, 2025 Dr. Clara Vega MD Other Provider Active Start: March 04, 2025 End: March 05, 2025 Dr. Patti Cornejo MD Attending Provider Active Start: March 04, 2025 End: March 05, 2025 Dr. Benny Mejia MD Other Provider Active Sta rt: March 04, 2025 End: March 05, 2025 Team Status: Active Member Role/Relationship Status Dates Dr. Hu Hairston MD Primary Care Provider Active Start: March 04, 2025 Dr. Emiliano Cisse DO Emergency Provider Active Start: March 04, 2025 Dr. Dick Perez DO Admit Provider Active Start: March 04, 2025 Dr. Dick Perez DO Other Provider Active Start: March 04, 2025 Dr. Benny Mejia MD Other Provider Active Sta rt: March 04, 2025 Dr. Surendra De Luna MD Attending Provider Active Start: March 04, 2025 Dr. Surendra De Luna MD Other Provider Active Sta rt: March 04, 2025 Team Status: Active Member Role/Relationship Status Dates Dr. Hu Hairston MD Primary Care Provider Active Start: March 05, 2025 Dr. Emiliano Cisse DO Emergency Provider Active Start: March 05, 2025 Dr. Dick Perez DO Admit Provider Active Start: March 05, 2025 Dr. Dick Perez DO Other Provider Active Start: March 05, 2025 Dr. Surendra De Luna MD Other Provider Active Sta rt: March 05, 2025 Dr. Clara Vega MD Other Provider Active Start: March 05, 2025 Dr. Patti Cornejo MD Attending Provider Active Start: March 05, 2025 Dr. Patti Cornejo MD Other Provider Active St art: March 05, 2025 Dr. Benny Mejia MD Other Provider Active Sta rt: March 05, 2025 Team Status: Active Member Role/Relationship Status Dates Dr. Hu Hairston MD Primary Care Provider Active Start: March 05, 2025 Dr. Emiliano Cisse DO Emergency Provider Active Start: March 05, 2025 Dr. Dick Perez DO Admit Provider Active Start: March 05, 2025 Dr. Dick Perez DO Other Provider Active Start: March 05, 2025 Dr. Surendra De Luna MD Attending Provider Active Start: March 05, 2025 Dr. Surendra De Luna MD Other Provider Active Sta rt: March 05, 2025 Dr. Clara Vega MD Other Provider Active Start: March 05, 2025 Dr. Patti Cornejo MD Other Provider Active St art: March 05, 2025 Dr. Benny Mejia MD Other Provider Active Sta rt: March 05, 2025 Team Status: Inactive Member Role/Relationship Status Dates Dr. Hu Hairston MD Primary Care Provider Active Start: March 02, 2025 End: March 02, 2025 Dr. Emiliano Cisse DO Attending Provider Active Start: March 02, 2025 End: March 02, 2025 Dr. Emiliano Cisse DO Emergency Provider Active Start: March 02, 2025 End: March 02, 2025 Team Status: Inactive Member Role/Relationship Status Dates Dr. Hu Hairston MD Primary Care Provider Active Start: March 16, 2025 End: March 16, 2025 Dr. Prashanth Castanon DO Emergency Provider Active S tart: March 16, 2025 End: March 16, 2025 Source Comments (unrecognize d section and content) In the event this informatio n is protected by the Federal Confidentiality of Alcohol and Drug Abuse Patient Records regulations: The Federal rules restrict any use of the information to criminally investigate or prosecute any alcohol or drug abuse patient.[facility] the event this information is protected by the Federal Confidentiality of Alcohol and Drug Abuse Patient Records regulations: The Federal rules restrict any use of the information to criminally investigate or prosecute any alcohol or drug abuse patient.[facility] Reason for Visit (unrecogniz ed section and content) Reason Comments Cough Head and chest conge stion, SOB x1 week Reason Comments Eye Problem left eye itching x t his am INFORMATION SOURCE (unrecogn ized section and content) DATE CREATED AUTHOR 01/08/2025 [facility] DATE CREATED AUTHOR AUTHOR'S ORGANIZ ATION 04/01/2025 [facility] DATE CREATED AUTHOR AUTHOR'S ORGANIZ ATION 06/16/2025 [facility] FOR RECORDS PERTAINING TO PATIENTS WHO ARE [...] BE BASED ON THE PRIMARY CLINICAL RECORDS. [facility]. provides no warranty or guarantee of the accuracy or completeness of information in this document.
--- NOTE | 2025-07-15 07:07 | EKG12_ITS ---
Test Reason : SOB Blood Pressure : */* mmHG Vent. Rate : 86 BPM Atrial Rate : 86 BPM P-R Int : 200 ms QRS Dur : 82 ms QT Int : 358 ms P-R-T Axes : 60 44 51 degrees QTcB Int : 428 ms Normal sinus rhythm Normal ECG Confirmed by ROME GIBSON, SOHAIL ([id number]), subeditor BETHEL FU ([id number]) on 07/16/2025 9:15:36 AM Referred By: Confirmed By: SOHAIL PETER MD
--- NOTE | 2025-07-15 07:10 | RAD_ITS ---
PROCEDURE: CHEST PA AND LATERAL 07/15/2025 REASON FOR EXAM: SHORTNESS OF BREATH TECHNIQUE: Procedure Code: RADCXR Modality: DX Procedure: CHEST PA AND LATERAL COMPARISON: 03/16/2025 FINDINGS: Hardware: None Heart: The heart size is normal. Mediastinum: The mediastinal contour is unremarkable. Lungs: The lungs are clear. Bones: Degenerative changes are identified within the thoracic spine. RAD/Chest PA and Lateral IMPRESSION: No acute pulmonary process, no interval change Reading Location: [id number]
[2025-07-15 07:25] VITALS: PULSE 91; RESP 16
[2025-07-15 08:14] VITALS: PULSE 90; RESP 16
[2025-07-15 08:30] VITALS: BP 127/71; PULSE 86; RESP 18; O2SAT 97
[2025-07-15 09:08] VITALS: O2SAT 96
[2025-07-15 09:20] VITALS: BP 121/71; PULSE 89; RESP 18; TEMP 36.8; O2SAT 97
== END 2025-07-15 09:22 | disposition home or self-care (01) ==
PROVIDERS: Emergency Provider Emergency Medicine; PCP Family Medicine; Visit Provider Emergency Medicine
DX: J44.1 Chronic obstructive pulmonary disease with (acute) exacerbation (principal); E78.00 Pure hypercholesterolemia, unspecified; I10 Essential (primary) hypertension; R06.02 Shortness of breath; K21.9 Gastro-esophageal reflux disease without esophagitis; Z79.899 Other long term (current) drug therapy; Z79.82 Long term (current) use of aspirin; Z79.890 Hormone replacement therapy; E03.9 Hypothyroidism, unspecified; F17.210 Nicotine dependence, cigarettes, uncomplicated
CPT/HCPCS: 71046; 93005; 94640; 99283